=== PATIENT | female | born 1965 | race Caucasian/White ===

== ENCOUNTER 2016-09-05 16:37 | Emergency (ER) | payer MEDICAID ==
[2016-09-05 16:54] VITALS: BP 126/90
[2016-09-05] MEDS ORDERED: HYDROmorphone 1 MG/ML Syringe IM ONE (17:17)
--- NOTE | 2016-09-05 17:44 | EDM.PDOC ---
ED HPI GENERAL MEDICAL PROBLEM - General Chief Complaint: Back Pain or Injury Stated Complaint: BACK PAIN Time Seen by Provider: 09/05/16 16:53 Source of Information: Reports: Patient History Limitations: Reports: No Limitations - History of Present Illness INITIAL COMMENTS - FREE TEXT/NARRATIVE: The patient presents with right lower back pain. She says this started last night. She says she feels like her interstim device is malfunctioning. That was implanted back in 2014 for urinary incontinence. She had no problem with it until now and it was working great. She has been incontinent a couple times since this has been hurting. She did nothing to injure that area. She has no dysuria and she has no numbness or weakness. Every so often she will get what feels like a shock. She could not get in contact with the rep or the doctor that put it in. Onset: Gradual Duration: Day(s): Location: Reports: Back Quality: Reports: Sharp Severity: Severe Improves with: Reports: None Worsens with: Reports: None Associated Symptoms: Reports: No Other Symptoms Right Lower Back Pain Score (Numeric/FACES): 10 - Related Data Allergies Allergy/AdvReac Type Severity Reaction Status Date / Time ibuprofen Allergy Itching Verified 01/24/16 10:53 ketorolac tromethamine Allergy Rash Verified 01/24/16 10:53 [From Toradol] naproxen Allergy Itching Verified 01/24/16 10:53 Sulfa (Sulfonamide Allergy Rash Verified 01/24/16 10:53 Antibiotics) sumatriptan [From Imitrex] Allergy Anaphylactic Verified 01/24/16 10:53 Shock sumatriptan succinate Allergy Anaphylactic Verified 01/24/16 10:53 [From Imitrex] Shock tramadol Allergy Rash Verified 01/24/16 10:53 diphenhydramine HCl AdvReac Headache Verified 01/24/16 10:53 [From Benadryl] MSG Allergy Anxiety Uncoded 01/13/16 14:29 Home Meds: Home Meds Hydrocodone/Acetaminophen [Hydrocodon-Acetaminophen 5-325] 1 - 2 each PO Q6HR PRN #20 tablet 09/05/16 [Rx] hydrOXYzine HCl [Atarax] 50 mg PO TID 09/05/16 [History] Past Medical History HEENT History: Reports: Other (See Below) Other HEENT History: Migraines Cardiovascular History: Reports: High Cholesterol Respiratory History: Reports: Other (See Below) Other Respiratory History: restrictive lung disease Gastrointestinal History: Reports: Gastritis, GERD Other Gastrointestinal History: esophageal stricture, abdominal pain lowere, Genitourinary History: Reports: Urinary Incontinence Other Genitourinary History: implantable device 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: Musculoskeletal History: Reports: Back Pain, Chronic Neurological History: Reports: CVA, Migraines Other Neuro History: denies epilepsy Psychiatric History: Reports: Addiction, Anxiety, Depression, Suicide Attempt, Other (See Below) Other Psychiatric History: drug overdose, personality disorder, alcohol withdrawal Endocrine/Metabolic History: Reports: Obesity/BMI 30+ Dermatologic History: Reports: Other (See Below) Other Dermatologic History: skin lesion - Infectious Disease History Infectious Disease History: Reports: Chicken Pox - Past Surgical History GI Surgical History: Reports: Appendectomy, Cholecystectomy, EGD Female Surgical History: Reports: Hysterectomy, Tubal Ligation Social & Family History - Family History Family Medical History: Noncontributory Cardiac: Reports: Bypass, CAD, Heart Failure - Tobacco Use Smoking Status *Q: Current Every Day Smoker Years of Tobacco use: 7 Packs/Tins Daily: 0.4 Used Tobacco, but Quit: Yes Month Tobacco Last Used: 6 Second Hand Smoke Exposure: No - Caffeine Use Caffeine Use: Reports: Coffee - Alcohol Use Days Per Week of Alcohol Use: 7 Number of Drinks Per Day: 6 Total Drinks Per Week: 42 - Recreational Drug Use Recreational Drug Use: No Drug Use in Last 12 Months: Yes Recreational Drug Type: Reports: Fentanyl, Marijuana/Hashish, Methamphetamine Recreational Drug Use Frequency: Not Used In Over 5 Months - Living Situation & Occupation Living situation: Reports: , with Family Occupation: Unemployed ED ROS GENERAL - Review of Systems Review Of Systems: See Below Constitutional: Reports: No Symptoms HEENT: Reports: No Symptoms Respiratory: Reports: No Symptoms Cardiovascular: Reports: No Symptoms Endocrine: Reports: No Symptoms GI/Abdominal: Reports: No Symptoms : Reports: No Symptoms Musculoskeletal: Reports: Back Pain (Low) Skin: Reports: No Symptoms ED EXAM,LOWER BACK PAIN/INJURY - Physical Exam Exam: See Below Exam Limited By: No Limitations General Appearance: Alert, No Apparent Distress Ears: Normal External Exam Nose: Normal Inspection Head: Atraumatic, Normocephalic Neck: Normal Inspection Respiratory/Chest: No Respiratory Distress, Lungs Clear, Normal Breath Sounds Cardiovascular: Regular Rate, Rhythm, No Edema, No Murmur GI/Abdominal: Soft, Non-Tender, No Organomegaly, No Mass Back Exam: Other (Pain upon palpation to the right lower back) Extremities: Normal Inspection Course - Vital Signs Last Recorded V/S: Last Vital Signs Temp 98.5 F 09/05/16 16:52 Pulse 106 H 09/05/16 16:52 Resp 20 09/05/16 16:52 BP 126/90 09/05/16 16:52 Pulse Ox 98 09/05/16 16:52 - Orders/Labs/Meds Meds: Medications Discontinued Medications Generic Name Dose Route Start Last Admin Trade Name Freq PRN Reason Stop Dose Admin Hydromorphone HCl 1 mg 09/05/16 17:17 09/05/16 17:27 Dilaudid IM 09/05/16 17:18 1 mg ONETIME ONE Administration Departure - Departure Time of Disposition: 17:45 Disposition: Home, Self-Care 01 Condition: good Clinical Impression: Low back pain Qualifiers: Chronicity: acute Back pain laterality: right Sciatica presence: without sciatica Qualified Code(s): M54.5 - Low back pain - Discharge Information Prescriptions: Hydrocodone/Acetaminophen [Hydrocodon-Acetaminophen 5-325] 1 - 2 each PO Q6HR PRN #20 tablet PRN Reason: Pain Referrals: Loren Graf CHIEF ANALYTICS OFFICER [Primary Care Provider] - 1 Week Forms: ED Department Discharge Additional Instructions: Contact your doctor on Wednesday.
== END 2016-09-05 17:49 | disposition home or self-care (01) ==
LOC: SUPCPDRO 16:37 → JD.ED 16:37
DX: M54.5 Low back pain (principal); E78.00 Pure hypercholesterolemia, unspecified; K21.9 Gastro-esophageal reflux disease without esophagitis; F17.210 Nicotine dependence, cigarettes, uncomplicated; Z88.2 Allergy status to sulfonamides; Z88.8 Allergy status to other drugs, medicaments and biological substances; Z79.899 Other long term (current) drug therapy; Z90.49 Acquired absence of other specified parts of digestive tract; Z90.710 Acquired absence of both cervix and uterus
CPT/HCPCS: 96372; 99283; J1170

== ENCOUNTER 2016-09-15 07:19 | Emergency (ER) | payer MEDICAID ==
[2016-09-15 07:27] VITALS: BP 140/92
[2016-09-15] MEDS ORDERED: Sodium Chloride 0.9% 10 ML Syringe FLUSH PRN (07:29)
[2016-09-15] MEDS ORDERED: Famotidine 20 MG Tab PO ONE (07:38)
[2016-09-15] MEDS ORDERED: Ondansetron 4 MG/2 ML SDV IVPUSH ONE (07:38)
[2016-09-15] MEDS ORDERED: Sodium Chloride 0.9% 1,000 ML IV SCH (07:45)
--- NOTE | 2016-09-15 09:22 | EDM.PDOC ---
ED HPI GENERAL MEDICAL PROBLEM - General Chief Complaint: Chest Pain Stated Complaint: CHEST PAIN Time Seen by Provider: 09/15/16 07:26 Source of Information: Reports: Patient, RN Notes Reviewed - History of Present Illness INITIAL COMMENTS - FREE TEXT/NARRATIVE: 50-year-old female comes in with anterior chest discomfort, nausea vomiting and diarrhea. She has been ill for about the past 5 days with repetitive watery diarrhea. She then did have some nausea vomiting early this morning followed by anterior chest discomfort and some shortness of breath. She was concerned this may be her heart and therefore comes to the ED for evaluation. She has no known history for diabetes hypertension or coronary artery disease. She does smoke. She feels quite anxious. Left Lower Chest Pain Score (Numeric/FACES): 8 - Related Data Allergies Allergy/AdvReac Type Severity Reaction Status Date / Time ibuprofen Allergy Itching Verified 09/15/16 07:28 ketorolac tromethamine Allergy Rash Verified 09/15/16 07:28 [From Toradol] naproxen Allergy Itching Verified 09/15/16 07:28 Sulfa (Sulfonamide Allergy Rash Verified 09/15/16 07:28 Antibiotics) sumatriptan [From Imitrex] Allergy Anaphylactic Verified 09/15/16 07:28 Shock sumatriptan succinate Allergy Anaphylactic Verified 09/15/16 07:28 [From Imitrex] Shock tramadol Allergy Rash Verified 09/15/16 07:28 diphenhydramine HCl AdvReac Headache Verified 09/15/16 07:28 [From Benadryl] MSG Allergy Anxiety Uncoded 09/15/16 07:28 Home Meds: Home Meds hydrOXYzine HCl [Atarax] 50 mg PO TID 09/05/16 [History] LORazepam [Ativan] 1 mg PO BID PRN #10 tablet 09/15/16 [Rx] Ondansetron [Zofran ODT] 4 mg PO Q8H PRN #7 tab.dis 09/15/16 [Rx] Past Medical History HEENT History: Reports: Impaired Vision, Other (See Below) Other HEENT History: Migraines Cardiovascular History: Reports: High Cholesterol Respiratory History: Reports: Other (See Below) Other Respiratory History: restrictive lung disease Gastrointestinal History: Reports: Gastritis, GERD Other Gastrointestinal History: esophageal stricture, abdominal pain lowere, Genitourinary History: Reports: Urinary Incontinence Other Genitourinary History: implantable device 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: Musculoskeletal History: Reports: Back Pain, Chronic Neurological History: Reports: CVA, Migraines Other Neuro History: denies epilepsy Psychiatric History: Reports: Addiction, Anxiety, Depression, Suicide Attempt, Other (See Below) Other Psychiatric History: drug overdose, personality disorder, alcohol withdrawal Endocrine/Metabolic History: Reports: Obesity/BMI 30+ Dermatologic History: Reports: Other (See Below) Other Dermatologic History: skin lesion - Infectious Disease History Infectious Disease History: Reports: Chicken Pox - Past Surgical History GI Surgical History: Reports: Appendectomy, Cholecystectomy, EGD Female Surgical History: Reports: Hysterectomy, Tubal Ligation Social & Family History - Family History Family Medical History: Noncontributory Cardiac: Reports: Bypass, CAD, Heart Failure - Tobacco Use Smoking Status *Q: Current Every Day Smoker Years of Tobacco use: 7 Packs/Tins Daily: 0.3 Used Tobacco, but Quit: Yes Month Tobacco Last Used: 6 Second Hand Smoke Exposure: No - Caffeine Use Caffeine Use: Reports: Coffee - Alcohol Use Days Per Week of Alcohol Use: 7 Number of Drinks Per Day: 1 Total Drinks Per Week: 7 - Recreational Drug Use Recreational Drug Use: No Drug Use in Last 12 Months: Yes Recreational Drug Type: Reports: Fentanyl, Marijuana/Hashish, Methamphetamine Recreational Drug Use Frequency: Not Used In Over 5 Months - Living Situation & Occupation Living situation: Reports: , with Family Occupation: Unemployed ED ROS GENERAL - Review of Systems Review Of Systems: See Below Constitutional: Denies: Fever, Chills, Diaphoresis HEENT: Reports: No Symptoms Respiratory: Reports: Shortness of Breath. Denies: Wheezing, Cough Cardiovascular: Reports: Chest Pain (Lower anterior mid chest without radiation) , Lightheadedness, Palpitations GI/Abdominal: Reports: Abdominal Pain, Diarrhea (Repetitive watery), Nausea ( Mild upper abdominal discomfort), Vomiting Musculoskeletal: Denies: Shoulder Pain, Arm Pain Skin: Reports: No Symptoms Neurological: Reports: Dizziness. Denies: Numbness, Tingling, Trouble Speaking ED EXAM, GENERAL - Physical Exam Exam: See Below General Appearance: Alert, Anxious Eye Exam: Bilateral Eye: PERRL Throat/Mouth: Normal Inspection Head: Atraumatic Neck: Supple, Full Range of Motion Respiratory/Chest: No Respiratory Distress, Lungs Clear, Normal Breath Sounds Cardiovascular: Regular Rate, Rhythm GI/Abdominal: Soft, Non-Tender. No: Guarding Back Exam: No: CVA Tenderness (L), CVA Tenderness (R) Extremities: Normal Inspection. No: Pedal Edema, Leg Pain Skin Exam: Warm, Dry, Normal Color EKG INTERPRETATION EKG Date: 09/15/16 Rhythm: NSR [place]: Normal P-Wave: Present QRS: Normal ST-T: Normal Course - Vital Signs Last Recorded V/S: Last Vital Signs Temp 97.3 F 09/15/16 07:25 Pulse 85 09/15/16 07:25 Resp 16 09/15/16 07:25 BP 140/92 H 09/15/16 07:25 Pulse Ox 99 09/15/16 07:25 - Orders/Labs/Meds Orders: Active Orders 24 hr Category Date Time Status EKG 12 Lead [EKG Documentation Completion] [RC] STAT Care 09/15/16 07:30 Active Peripheral IV Care [RC] . DIRECTED Care 09/15/16 07:30 Active Chest 1V Frontal [CR] Stat Exams 09/15/16 07:30 Taken Sodium Chloride 0.9% [Normal Saline] 1,000 ml Med 09/15/16 07:45 Active IV ONETIME Sodium Chloride 0.9% [Saline Flush] Med 09/15/16 07:29 Active 10 ml FLUSH ASDIRECTED PRN Peripheral IV Insertion Adult [OM.PC] Stat Oth 09/15/16 07:30 Ordered Medication Orders Sodium Chloride (Normal Saline) 1,000 mls @ 999 mls/hr IV ONETIME [facility] Last Admin: 09/15/16 08:49 Dose: 999 mls/hr Sodium Chloride (Saline Flush) 10 ml FLUSH ASDIRECTED PRN PRN Reason: Keep Vein Open Last Admin: 09/15/16 08:43 Dose: 10 ml Labs: Laboratory Tests 09/15/16 09/15/16 Range/Units 08:15 08:34 WBC 8.15 (3.98-10.04) K/mm3 RBC 4.77 (3.98-5.22) M/mm3 Hgb 14.5 (11.2-15.7) gm/L Hct 43.1 (34.1-44.9) % MCV 90.4 (79.4-94.8) fl MCH 30.4 (25.6-32.2) pg MCHC 33.6 (32.2-35.5) g/dl RDW Std Deviation 44.4 (36.4-46.3) fL Plt Count 388 H (182-369) K/mm3 MPV 9.4 (9.4-12.3) fl Neut % (Auto) 71.0 (34.0-71.1) % Lymph % (Auto) 21.5 (19.3-51.7) % [place] % (Auto) 5.9 (4.7-12.5) % Eos % (Auto) 1.2 (0.7-5.8) Baso % (Auto) 0.2 (0.1-1.2) % Neut # (Auto) 5.78 (1.56-6.13) K/mm3 Lymph # (Auto) 1.75 (1.18-3.74) K/mm3 [place] # (Auto) 0.48 H (0.24-0.36) K/mm3 Eos # (Auto) 0.10 (0.04-0.36) K/mm3 Baso # (Auto) 0.02 (0.01-0.08) K/mm3 Sodium 140 (136-145) mEq/L Potassium 3.9 (3.5-5.1) mEq/L Chloride 103 (98-107) mEq/L Carbon Dioxide 24 (21-32) mEq/L Anion Gap 16.9 H (5-15) BUN 9 (7-18) mg/dL Creatinine 0.9 (0.55-1.02) mg/dL Est Cr Clr Drug Dosing 66.54 mL/min Estimated GFR (MDRD) > 60 (>60) mL/min BUN/Creatinine Ratio 10.0 L (14-18) Glucose 93 (74-106) mg/dL Calcium 9.4 (8.5-10.1) mg/dL Total Bilirubin 0.8 (0.2-1.0) mg/dL AST 22 (15-37) U/L ALT 36 (14-59) U/L Alkaline Phosphatase 132 H (46-116) U/L Troponin I < 0.017 (0.00-0.056) ng/mL Total Protein 7.8 (6.4-8.2) g/dl Albumin 4.2 (3.4-5.0) g/dl Globulin 3.6 gm/dL Albumin/Globulin Ratio 1.2 (1-2) Meds: Medications Generic Name Dose Route Start Last Admin Trade Name Freq PRN Reason Stop Dose Admin Sodium Chloride 1,000 mls @ 999 mls/hr 09/15/16 07:45 09/15/16 08:49 Normal Saline IV 999 mls/hr ONETIME HÉCTOR Administration Sodium Chloride 10 ml 09/15/16 07:29 09/15/16 08:43 Saline Flush FLUSH 10 ml ASDIRECTED PRN Administration Keep Vein Open Discontinued Medications Generic Name Dose Route Start Last Admin Trade Name Freq PRN Reason Stop Dose Admin Famotidine 20 mg 09/15/16 07:38 09/15/16 08:42 Pepcid PO 09/15/16 07:39 20 mg ONETIME ONE Administration Metoclopramide HCl 5 mg 09/15/16 09:30 Reglan IVPUSH 09/15/16 09:31 ONETIME ONE Ondansetron HCl 4 mg 09/15/16 07:38 09/15/16 08:42 Zofran IVPUSH 09/15/16 07:39 4 mg ONETIME ONE Administration - Re-Assessments/Exams Free Text/Narrative Re-Assessment/Exam: 09/15/16 09:20 Troponin normal, other labs all relatively normal, EKG was normal. She did have nausea vomiting prior to onset of her chest discomfort. This strongly appears to be related to her vomiting, likely some acid reflux as well. Her strong component of anxiety made things worse. Discharge instructions as documented Departure - Departure Time of Disposition: 09:21 Disposition: Home, Self-Care 01 Condition: Fair Clinical Impression: Vomiting, Diarrhea, Atypical chest pain Prescriptions: LORazepam [Ativan] 1 mg PO BID PRN #10 tablet PRN Reason: Anxiety Ondansetron [Zofran ODT] 4 mg PO Q8H PRN #7 tab.dis PRN Reason: Nausea/Vomiting Instructions: Nausea, Adult, Diarrhea, Adult, Nonspecific Chest Pain, Nausea and Vomiting, Adult, [id number] Referrals: Loren Graf, SCALE RECLAMATION TENDER [Primary Care Provider] - Forms: ED Department Discharge Additional Instructions: Rest, clear liquids until this evening, then very careful bland diet as tolerated, Zofran if needed for further nausea or vomiting, begin taking probiotic and take that twice daily for the next week, that is available OTC, follow-up clinic as needed if not getting better over the next 1-2 days as expected, Ativan one half tablet to 1 tablet up to every 12 hours if needed for severe anxiety, return to ED as needed - My Orders Last 24 Hours: My Active Orders 09/15/16 07:29 Sodium Chloride 0.9% [Saline Flush] 10 ml FLUSH ASDIRECTED PRN 09/15/16 07:30 EKG 12 Lead [EKG Documentation Completion] [RC] STAT Peripheral IV Care [RC] . DIRECTED Chest 1V Frontal [CR] Stat Peripheral IV Insertion Adult [OM.PC] Stat 09/15/16 07:45 Sodium Chloride 0.9% [Normal Saline] 1,000 ml IV ONETIME - Assessment/Plan Last 24 Hours: My Active Orders 09/15/16 07:29 Sodium Chloride 0.9% [Saline Flush] 10 ml FLUSH ASDIRECTED PRN 09/15/16 07:30 EKG 12 Lead [EKG Documentation Completion] [RC] STAT Peripheral IV Care [RC] . DIRECTED Chest 1V Frontal [CR] Stat Peripheral IV Insertion Adult [OM.PC] Stat 09/15/16 07:45 Sodium Chloride 0.9% [Normal Saline] 1,000 ml IV ONETIME
[2016-09-15] MEDS ORDERED: Metoclopramide 10 MG/2 ML SDV IVPUSH ONE (09:30)
--- NOTE | 2016-09-15 15:17 | CR ---
Chest: Portable view of the chest was obtained. Comparison: Previous chest x-ray of 01/07/16. Heart size and mediastinum are normal. Linear scar is seen within the left mid lung. Lungs otherwise are clear. Air is noted overlying the spine which is felt to be artifact from superficial soft tissues. Bony structures are grossly intact. Impression: 1. Incidental findings. Nothing acute is appreciated on portable chest x-ray. Diagnostic code #2
== END 2016-09-15 10:02 | disposition home or self-care (01) ==
LOC: JD.ED 07:19
DX: R07.89 Other chest pain (principal); R11.10 Vomiting, unspecified; R19.7 Diarrhea, unspecified; G43.909 Migraine, unspecified, not intractable, without status migrainosus; E78.00 Pure hypercholesterolemia, unspecified; K21.9 Gastro-esophageal reflux disease without esophagitis; F17.210 Nicotine dependence, cigarettes, uncomplicated; F32.9 Major depressive disorder, single episode, unspecified; E66.9 Obesity, unspecified; Z68.34 Body mass index [BMI] 34.0-34.9, adult; Z90.49 Acquired absence of other specified parts of digestive tract; Z86.73 Personal history of transient ischemic attack (TIA), and cerebral infarction without residual deficits; Z88.6 Allergy status to analgesic agent; Z88.2 Allergy status to sulfonamides; Z88.5 Allergy status to narcotic agent; Z88.8 Allergy status to other drugs, medicaments and biological substances; F41.9 Anxiety disorder, unspecified; Z90.710 Acquired absence of both cervix and uterus
CPT/HCPCS: 36415; 71010; 80053; 84484; 85025; 96361; 96374; 99285; A9270; J2405; J7040; J7050; 99284

== ENCOUNTER 2016-10-10 07:46 | Emergency (ER) | payer MEDICAID ==
--- NOTE | 2016-10-10 08:01 | EDM.PDOC ---
ED HPI GENERAL MEDICAL PROBLEM - General Chief Complaint: Gastrointestinal Problem Stated Complaint: VOMITING Time Seen by Provider: 10/10/16 07:55 Source of Information: Reports: Patient, Old Records, RN Notes Reviewed History Limitations: Reports: No Limitations - History of Present Illness INITIAL COMMENTS - FREE TEXT/NARRATIVE: The patient states that she developed watery, nonbloody diarrhea 6 days ago, then nausea and emesis yesterday. She states that she feels either sweaty or chilly, although she has not had a fever. She states that she took an over-the- counter anti-nausea medicine called Nauzene (sodium citrate dihydrate - a buffer agent that can neutralize gastric acidity) that did not help her symptoms. No recent spoiled food. None of the patient's coworkers are similarly ill. No recent antibiotics. No recent travel. No prior similar symptoms. Medical records indicate that the patient had a CBC, CMP, troponin, CRP, and TSH drawn at the clinic on 10/06/2016, all of which were normal. The patient's PCP is Candida Limon. - Related Data Allergies Allergy/AdvReac Type Severity Reaction Status Date / Time ibuprofen Allergy Itching Verified 10/10/16 07:51 ketorolac tromethamine Allergy Rash Verified 10/10/16 07:51 [From Toradol] naproxen Allergy Itching Verified 10/10/16 07:51 Sulfa (Sulfonamide Allergy Rash Verified 10/10/16 07:51 Antibiotics) sumatriptan [From Imitrex] Allergy Anaphylactic Verified 10/10/16 07:51 Shock sumatriptan succinate Allergy Anaphylactic Verified 10/10/16 07:51 [From Imitrex] Shock tramadol Allergy Rash Verified 10/10/16 07:51 diphenhydramine HCl AdvReac Headache Verified 10/10/16 07:51 [From Benadryl] MSG Allergy Anxiety Uncoded 10/10/16 07:51 Home Meds: Home Meds hydrOXYzine HCl [Atarax] 50 mg PO TID 09/05/16 [History] Ondansetron [Zofran ODT] 4 mg PO Q8H PRN #10 tab.dis 10/10/16 [Rx] Venlafaxine HCl [Venlafaxine ER] 150 mg PO DAILY 10/10/16 [History] Past Medical History HEENT History: Reports: Impaired Vision Cardiovascular History: Reports: High Cholesterol (untreated) Respiratory History: Reports: Other (See Below) (Restrictive lung disease - per the patient, not documented) Gastrointestinal History: Reports: Gastritis (untreated), GERD (untreated), Other (See Below) (Esophageal stricture) Genitourinary History: Reports: Urinary Incontinence 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: Musculoskeletal History: Reports: Back Pain, Chronic Psychiatric History: Reports: Addiction, Anxiety, Depression, Suicide Attempt, Other (See Below) (Personality disorder) Endocrine/Metabolic History: Reports: Obesity/BMI 30+ - Infectious Disease History Infectious Disease History: Reports: Chicken Pox - Past Surgical History GI Surgical History: Reports: Appendectomy, Cholecystectomy, EGD Female Surgical History: Reports: Hysterectomy, Salpingo-Oophorectomy, Tubal Ligation, Other (See Below) (InterStim implant for urinary incontinence) Social & Family History - Family History Family Medical History: Noncontributory Cardiac: Reports: Bypass, CAD, Heart Failure - Tobacco Use Smoking Status *Q: Current Every Day Smoker Years of Tobacco use: 21 Packs/Tins Daily: 0.3 - Caffeine Use Caffeine Use: Reports: Coffee - Alcohol Use Alcohol Use History: Yes Days Per Week of Alcohol Use: 7 Number of Drinks Per Day: 1 Total Drinks Per Week: 7 Alcohol Use Frequency: Socially - Recreational Drug Use Recreational Drug Use: Yes Recreational Drug Type: Reports: Fentanyl, Marijuana/Hashish, Methamphetamine - Living Situation & Occupation Living situation: Reports: , Other (with ex-) Occupation: Employed ([employer]) ED ROS GENERAL - Review of Systems Review Of Systems: See Below Constitutional: Reports: No Symptoms HEENT: Reports: No Symptoms Respiratory: Reports: No Symptoms Cardiovascular: Reports: No Symptoms Endocrine: Reports: No Symptoms GI/Abdominal: Reports: Diarrhea (as per the HPI), Nausea (as per the HPI), Vomiting (as per the HPI) : Reports: No Symptoms Musculoskeletal: Reports: No Symptoms Skin: Reports: No Symptoms Neurological: Reports: No Symptoms Psychiatric: Reports: No Symptoms Hematologic/Lymphatic: Reports: No Symptoms Immunologic: Reports: No Symptoms ED EXAM, GI/ABD - Physical Exam Exam: See Below Exam Limited By: No Limitations General Appearance: Alert, WD/WN, No Apparent Distress Eyes: Bilateral: Normal Appearance, EOMI Ears: Normal External Exam, Hearing Grossly Normal Nose: Normal Inspection, No Blood Throat/Mouth: Normal Inspection, Normal Lips, Normal Voice, No Airway Compromise , Other (Moist oral mucosa) Head: Atraumatic, Normocephalic Neck: Normal Inspection, Full Range of Motion Respiratory/Chest: No Respiratory Distress, Lungs Clear, Normal Breath Sounds, No Accessory Muscle Use Cardiovascular: Normal Peripheral Pulses, Regular Rate, Rhythm, No Gallop, No JVD, No Murmur, No Rub GI/Abdominal: Normal Bowel Sounds, Soft, Non-Tender, No Organomegaly, No Distention, No Abnormal Bruit, No Mass, Other (Obese) (Female) Exam: Deferred Rectal (Female) Exam: Deferred Back Exam: Normal Inspection, Full Range of Motion, NT Extremities: Normal Inspection, Normal Range of Motion, No Pedal Edema, Normal Capillary Refill Neurological: Alert, Oriented, Normal Cognition, No Motor/Sensory Deficits Psychiatric: Normal Affect Skin Exam: Warm, Dry, Intact, Normal Color, No Rash Lymphatic: No Adenopathy Course - Vital Signs Last Recorded V/S: Last Vital Signs Temp 36.2 C 10/10/16 07:52 Pulse 76 10/10/16 07:52 Resp BP 119/90 10/10/16 07:52 Pulse Ox 100 10/10/16 07:52 Orthostatic Blood Pressure [ 119/99 Standing] Orthostatic Blood Pressure [ 131/61 Supine] - Orders/Labs/Meds Orders: Active Orders 24 hr Category Date Time Status Orthostatic Vital Signs [RC] STAT Care 10/10/16 07:58 Active Labs: Laboratory Tests 10/10/16 10/10/16 10/10/16 Range/Units 08:40 10:00 10:00 WBC 6.82 (3.98-10.04) K/mm3 RBC 4.73 (3.98-5.22) M/mm3 Hgb 14.7 (11.2-15.7) gm/L Hct 43.6 (34.1-44.9) % MCV 92.2 (79.4-94.8) fl MCH 31.1 (25.6-32.2) pg MCHC 33.7 (32.2-35.5) g/dl RDW Std Deviation 43.7 (36.4-46.3) fL Plt Count 312 (182-369) K/mm3 MPV 9.8 (9.4-12.3) fl Neutrophils % (Manual) 72 H (40-60) % Band Neutrophils % 1 (0-10) % Lymphocytes % (Manual) 23 (20-40) % Atypical Lymphs % 0 % Monocytes % (Manual) 4 (2-10) % Eosinophils % (Manual) 0 L (0.7-5.8) % Basophils % (Manual) 0 L (0.1-1.2) Platelet Estimate Adequate Plt Morphology Comment Normal RBC Morph Comment Normal Sodium 139 (136-145) mEq/L Potassium 3.6 (3.5-5.1) mEq/L Chloride 102 (98-107) mEq/L Carbon Dioxide 25 (21-32) mEq/L Anion Gap 15.6 H (5-15) BUN 10 (7-18) mg/dL Creatinine 0.9 (0.55-1.02) mg/dL Est Cr Clr Drug Dosing 66.54 mL/min Estimated GFR (MDRD) > 60 (>60) mL/min BUN/Creatinine Ratio 11.1 L (14-18) Glucose 104 (74-106) mg/dL Calcium 8.8 (8.5-10.1) mg/dL Magnesium 1.9 (1.8-2.4) mg/dl Total Bilirubin 0.8 (0.2-1.0) mg/dL AST 21 (15-37) U/L ALT 30 (14-59) U/L Alkaline Phosphatase 128 H (46-116) U/L Total Protein 7.3 (6.4-8.2) g/dl Albumin 3.9 (3.4-5.0) g/dl Globulin 3.4 gm/dL Albumin/Globulin Ratio 1.2 (1-2) Urine Color Yellow (Yellow) Urine Appearance Clear (Clear) Urine pH 6.0 (5.0-8.0) Ur Specific [place] 1.025 (1.005-1.030) Urine Protein Negative (Negative) Urine Glucose (UA) Negative (Negative) Urine Ketones Negative (Negative) Urine Occult Blood Negative (Negative) Urine Nitrite Negative (Negative) Urine Bilirubin Negative (Negative) Urine Urobilinogen 0.2 (0.2-1.0) Ur Leukocyte Esterase Negative (Negative) Urine RBC Not seen (0-5) /hpf Urine WBC Not seen (0-5) /hpf Ur Epithelial Cells Not Reportable Ur Squamous Epith Cells 0-5 (0-5) /hpf Urine Bacteria Not seen (FEW) /hpf Urine Mucus Few (FEW) /hpf Meds: Medications Discontinued Medications Generic Name Dose Route Start Last Admin Trade Name Ashvin PRN Reason Stop Dose Admin Sodium Chloride 1,000 mls @ 999 mls/hr 10/10/16 08:10 10/10/16 09:45 Normal Saline IV 10/10/16 09:10 Not Given ONETIME ONE Loperamide HCl 4 mg 10/10/16 08:10 Imodium PO 10/10/16 08:11 ONETIME STA Metoclopramide HCl 10 mg 10/10/16 09:52 10/10/16 10:03 Reglan IM 10/10/16 09:53 10 mg ONETIME STA Administration Ondansetron HCl 4 mg 10/10/16 08:10 Zofran IVPUSH 10/10/16 08:11 ONETIME ONE Ondansetron HCl 4 mg 10/10/16 09:21 10/10/16 09:27 Zofran Odt PO 10/10/16 09:22 4 mg ONETIME ONE Administration - Re-Assessments/Exams Free Text/Narrative Re-Assessment/Exam: 10/10/16 08:00 The patient is not orthostatic 10/10/16 09:29 The nurse and AIR BRAKE OPERATOR have been having difficulty establishing an IV on the patient. At present, I have ordered oral Zofran and Imodium. She has not had any vomiting or diarrhea since being in the ED. If her nausea subsides, we will try giving her oral Gatorade for rehydration. Lab is still attempting to draw blood. 10/10/16 09:54 Lab was unable to draw blood. The patient took the oral Zofran, and has been drinking some Gatorade, but is not complaining of some stomach upset. I have ordered Reglan 10 mg IM. 10/10/16 10:03 Notified that while we do not have an IV, blood has been obtained. 10/10/16 11:09 The patient has been able to hold liquids down, and has not had any diarrhea during her ED visit. I will discharge her home with a prescription for Zofran, and she can take [id number] Imodium as needed. Departure - Departure Time of Disposition: 11:10 Disposition: Home, Self-Care 01 Condition: Good Clinical Impression: Gastroenteritis - Discharge Information Referrals: Candida Limon PA [Primary Care Provider] - Forms: ED Department Discharge Additional Instructions: You were seen in the emergency room for nausea, vomiting, and diarrhea. Workup in the ER included blood work, a urinalysis, and positional blood pressure checked. Your entire workup was normal. Your not dehydrated. You do not have any electrolyte abnormalities. You do not have a urinary tract infection. You have been started on the anti-nausea medicine Zofran. Dissolve 1 tablet on your tongue up to every 8 hours, as needed for nausea/vomiting. Take [id number] Imodium (loperamide) as directed, as needed for diarrhea. Stay well hydrated. Gatorade is best, but Powerade, Pedialyte, water, and juice are good. If you are hungry, we recommend a bland diet, such as rice, oatmeal, toast, applesauce, etc. the next couple of days. Follow-up with your PCP, Candida Limon, as needed. If any other problems, please do not hesitate to return to the ER. - My Orders Last 24 Hours: My Active Orders 10/10/16 07:58 Orthostatic Vital Signs [RC] STAT - Assessment/Plan Last 24 Hours: My Active Orders 10/10/16 07:58 Orthostatic Vital Signs [RC] STAT
[2016-10-10] MEDS ORDERED: Ondansetron 4 MG/2 ML SDV IVPUSH ONE (08:10)
[2016-10-10] MEDS ORDERED: Sodium Chloride 0.9% 1,000 ML IV ONE (08:10)
[2016-10-10] MEDS ORDERED: Loperamide 2 MG Cap PO STA (08:10)
[2016-10-10] MEDS ORDERED: Ondansetron 4 MG Tab.DIS PO ONE (09:21)
[2016-10-10] MEDS ORDERED: Metoclopramide 10 MG/2 ML SDV IM STA (09:52)
[2016-10-10 11:32] VITALS: BP 121/76
== END 2016-10-10 11:25 | disposition home or self-care (01) ==
LOC: JD.ED 07:46
DX: K52.9 Noninfective gastroenteritis and colitis, unspecified (principal); E78.00 Pure hypercholesterolemia, unspecified; K21.9 Gastro-esophageal reflux disease without esophagitis; F41.9 Anxiety disorder, unspecified; F17.210 Nicotine dependence, cigarettes, uncomplicated; F32.9 Major depressive disorder, single episode, unspecified; E66.9 Obesity, unspecified; Z90.49 Acquired absence of other specified parts of digestive tract; Z88.6 Allergy status to analgesic agent; Z88.2 Allergy status to sulfonamides; Z88.5 Allergy status to narcotic agent; Z79.899 Other long term (current) drug therapy; Z90.710 Acquired absence of both cervix and uterus; Z68.36 Body mass index [BMI] 36.0-36.9, adult
CPT/HCPCS: 36415; 80053; 81001; 83735; 85025; 96372; 99284; A9270; J2765; P9612

== ENCOUNTER 2016-10-26 12:57 | Emergency (ER) | payer MEDICAID ==
[2016-10-26 13:06] VITALS: BP 135/99
[2016-10-26] MEDS ORDERED: HYDROmorphone 1 MG/ML Syringe IVPUSH ONE (13:37)
[2016-10-26] MEDS ORDERED: HYDROmorphone 1 MG/ML Syringe IM ONE (13:40)
--- NOTE | 2016-10-26 13:55 | EDM.PDOC ---
ED HPI GENERAL MEDICAL PROBLEM - General Chief Complaint: Back Pain or Injury Stated Complaint: BACK PAIN Time Seen by Provider: 10/26/16 13:18 Source of Information: Reports: Patient, RN Notes Reviewed - History of Present Illness INITIAL COMMENTS - FREE TEXT/NARRATIVE: 50-year-old lady comes in with low back pain. She has had history of low back problems in the past. She works at [employer] and has been working there for the past 2 months or so. After working her shift yesterday she began having more low back pain. For a while this morning the pain was shooting down into her legs. Now the pain is primarily right lower back, worse with motion. No other unusual symptoms. Treatments INSPECTOR CRYSTAL: Reports: Acetaminophen Lower Back Pain Score (Numeric/FACES): 9 - Related Data Allergies Allergy/AdvReac Type Severity Reaction Status Date / Time ibuprofen Allergy Itching Verified 10/26/16 13:07 ketorolac tromethamine Allergy Rash Verified 10/26/16 13:07 [From Toradol] naproxen Allergy Itching Verified 10/26/16 13:07 Sulfa (Sulfonamide Allergy Rash Verified 10/26/16 13:07 Antibiotics) sumatriptan [From Imitrex] Allergy Anaphylactic Verified 10/26/16 13:07 Shock sumatriptan succinate Allergy Anaphylactic Verified 10/26/16 13:07 [From Imitrex] Shock tramadol Allergy Rash Verified 10/26/16 13:07 diphenhydramine HCl AdvReac Headache Verified 10/26/16 13:07 [From Benadryl] MSG Allergy Anxiety Uncoded 10/10/16 07:51 Home Meds: Home Meds Ondansetron [Zofran ODT] 4 mg PO Q8H PRN #10 tab.dis 10/10/16 [Rx] Venlafaxine HCl [Venlafaxine ER] 150 mg PO DAILY 10/10/16 [History] Acetaminophen/HYDROcodone [[place] 325-5 MG] 1 tab PO Q6H PRN #10 tablet 10/26/16 [Rx] hydrOXYzine Pamoate [Vistaril] 50 mg PO Q8H 10/26/16 [History] Past Medical History HEENT History: Reports: Impaired Vision Other HEENT History: wears corrective lenses Cardiovascular History: Reports: High Cholesterol Respiratory History: Reports: Other (See Below) (Restrictive lung disease - per the patient, not documented) Other Respiratory History: restrictive lung disease Gastrointestinal History: Reports: Gastritis, GERD, Other (See Below) Other Gastrointestinal History: esophageal stricture, abdominal pain lowere, Genitourinary History: Reports: Urinary Incontinence Other Genitourinary History: implantable device interstim 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: Musculoskeletal History: Reports: Back Pain, Chronic Neurological History: Reports: CVA, Migraines Other Neuro History: denies epilepsy Psychiatric History: Reports: Addiction, Anxiety, Depression, Suicide Attempt, Other (See Below) Other Psychiatric History: drug overdose, personality disorder, alcohol withdrawal Endocrine/Metabolic History: Reports: Obesity/BMI 30+ Dermatologic History: Reports: Other (See Below) Other Dermatologic History: skin lesion - Infectious Disease History Infectious Disease History: Reports: Chicken Pox - Past Surgical History HEENT Surgical History: Reports: None Cardiovascular Surgical History: Reports: None GI Surgical History: Reports: Appendectomy, Cholecystectomy, EGD Female Surgical History: Reports: Hysterectomy, Salpingo-Oophorectomy, Tubal Ligation Social & Family History - Family History Family Medical History: Noncontributory Cardiac: Reports: Bypass, CAD, Heart Failure - Tobacco Use Smoking Status *Q: Current Every Day Smoker Years of Tobacco use: 7 Packs/Tins Daily: 0.3 Used Tobacco, but Quit: No Month Tobacco Last Used: 6 Second Hand Smoke Exposure: No - Caffeine Use Caffeine Use: Reports: Coffee - Alcohol Use Days Per Week of Alcohol Use: 7 Number of Drinks Per Day: 1 Total Drinks Per Week: 7 - Recreational Drug Use Recreational Drug Use: No Drug Use in Last 12 Months: Yes Recreational Drug Type: Reports: Fentanyl, Marijuana/Hashish, Methamphetamine Recreational Drug Use Frequency: Not Used In Over 5 Months - Living Situation & Occupation Living situation: Reports: , Other (with ex-) Occupation: Employed ([employer]) ED [facility] GENERAL - Review of Systems Review Of Systems: See Below Constitutional: Denies: Fever, Chills, Diaphoresis HEENT: Reports: No Symptoms Respiratory: Denies: Shortness of Breath Cardiovascular: Denies: Chest Pain GI/Abdominal: Denies: Abdominal Pain, Nausea, Vomiting : Reports: No Symptoms Musculoskeletal: Reports: Back Pain, Leg Pain Skin: Reports: No Symptoms Neurological: Denies: Numbness, Tingling ED EXAM,LOWER BACK PAIN/INJURY - Physical Exam Exam: See Below General Appearance: Alert, Moderate Distress Throat/Mouth: Normal Inspection, Normal Oropharynx Head: Atraumatic Neck: Supple Respiratory/Chest: No Respiratory Distress, Lungs Clear, Normal Breath Sounds Cardiovascular: Regular Rate, Rhythm Back Exam: Paraspinal Tenderness. No: CVA Tenderness (L), CVA Tenderness (R) Extremities: Normal Inspection (Right low back), Normal Range of Motion Neurological: Alert, No Motor/Sensory Deficits Skin Exam: Warm, Dry, Normal Color Course - Vital Signs Last Recorded V/S: Last Vital Signs Temp 97.1 F 10/26/16 13:04 Pulse 92 10/26/16 13:04 Resp 20 10/26/16 13:04 BP 135/99 H 10/26/16 13:04 Pulse Ox 96 10/26/16 13:04 - Orders/Labs/Meds Meds: Medications Discontinued Medications Generic Name Dose Route Start Last Admin Trade Name Freq PRN Reason Stop Dose Admin Hydromorphone HCl 1 mg 10/26/16 13:40 10/26/16 13:45 Dilaudid IM 10/26/16 13:41 1 mg ONETIME ONE Administration - Re-Assessments/Exams Free Text/Narrative Re-Assessment/Exam: 10/26/16 13:52 Have given Dilaudid 1 mg IM. She does have a local company flatbed truck driver to get her home. She is "allergic to Toradol" Discharge instructions as documented 10/26/16 13:53 Departure - Departure Time of Disposition: 13:53 Disposition: Home, Self-Care 01 Condition: Fair Clinical Impression: Back strain Qualifiers: Encounter type: initial encounter Qualified Code(s): S39.012A - Strain of muscle, fascia and tendon of lower back, initial encounter - Discharge Information Prescriptions: Acetaminophen/HYDROcodone [[place] 325-5 MG] 1 tab PO Q6H PRN #10 tablet PRN Reason: Pain Forms: ED Department Discharge Additional Instructions: Rest back, alternate ice and heat as needed, you've been given Dilaudid 1 mg IM while here in the ED. No driving the remainder of today. He may take Tylenol for mild to moderate discomfort or hydrocodone if needed for severe pain. Do not drive or work when taking hydrocodone. Follow-up clinic as needed.
== END 2016-10-26 14:30 | disposition home or self-care (01) ==
LOC: JD.ED 12:57
DX: S39.012A Strain of muscle, fascia and tendon of lower back, initial encounter (principal); E78.00 Pure hypercholesterolemia, unspecified; K21.9 Gastro-esophageal reflux disease without esophagitis; F41.9 Anxiety disorder, unspecified; F32.9 Major depressive disorder, single episode, unspecified; E66.9 Obesity, unspecified; F17.210 Nicotine dependence, cigarettes, uncomplicated; Z90.710 Acquired absence of both cervix and uterus; Z90.49 Acquired absence of other specified parts of digestive tract; Z86.73 Personal history of transient ischemic attack (TIA), and cerebral infarction without residual deficits; Z88.1 Allergy status to other antibiotic agents; Z88.2 Allergy status to sulfonamides; Z88.6 Allergy status to analgesic agent; Z88.5 Allergy status to narcotic agent; Z79.899 Other long term (current) drug therapy; Z68.36 Body mass index [BMI] 36.0-36.9, adult; X50.0XXA Overexertion from strenuous movement or load, initial encounter; Y99.0 Civilian activity done for income or pay
CPT/HCPCS: 96372; 99283; J1170

== ENCOUNTER 2016-10-27 14:46 | Emergency (ER) | payer MEDICAID ==
[2016-10-27] MEDS ORDERED: Sodium Chloride 0.9% 10 ML Syringe FLUSH PRN (14:49)
--- NOTE | 2016-10-27 15:16 | CT ---
Head CT Technique: Multiple axial sections through the brain were obtained. Intravenous contrast was not utilized. Comparison: Previous head CT exam of 11/03/15. Findings: Ventricles along with basal cisterns and sulci over convexities are mildly prominent. No abnormal parenchymal densities are seen. No evidence of intracranial hemorrhage. No midline shift or mass effect is seen. No acute calvarial abnormality is appreciated. Mild mucosal thickening is seen within portions of the left maxillary sinus with possible small retention cyst. Other visualized sinuses are clear. Impression: 1. Slight mucosal thickening and possible small retention cyst within the inferior left maxillary sinus which is felt to be incidental. 2. No acute intracranial abnormality is identified on noncontrast head CT exam. Diagnostic code #2
[2016-10-27 15:30] VITALS: BP 130/87
[2016-10-27] MEDS ORDERED: LORazepam 2 MG/ML MDV IVPUSH ONE (15:41)
[2016-10-27] MEDS ORDERED: Acetaminophen 325 MG Tab PO ONE (15:41)
--- NOTE | 2016-10-27 16:24 | EDM.PDOC ---
ED HPI GENERAL MEDICAL PROBLEM - General Chief Complaint: Neuro Symptoms/Deficits Stated Complaint: [facility] Time Seen by Provider: 10/27/16 14:49 Source of Information: Reports: Patient, EMS History Limitations: Reports: No Limitations - History of Present Illness INITIAL COMMENTS - FREE TEXT/NARRATIVE: The patient presents with a headache, left sided facial droop, left arm weakness and left leg weakness. This all started about 40 minutes ago. Her last time know well was 1405. She has no chest pain, shortness of breath, abdominal pain, nausea or vomiting. She had a TIA about 9 months ago. She is not on any blood thinners. EMS did say she could walk to the cot when they got to her. Onset: Sudden Duration: Minutes: (40) Location: Reports: Face, Upper Extremity, Left, Lower Extremity, Left Quality: Reports: Other (Weakness) Severity: Moderate Improves with: Reports: None Worsens with: Reports: Movement Headache Pain Score (Numeric/FACES): 9 - Related Data Allergies Allergy/AdvReac Type Severity Reaction Status Date / Time ibuprofen Allergy Itching Verified 10/27/16 15:21 ketorolac tromethamine Allergy Rash Verified 10/27/16 15:21 [From Toradol] naproxen Allergy Itching Verified 10/27/16 15:21 Sulfa (Sulfonamide Allergy Rash Verified 10/27/16 15:21 Antibiotics) sumatriptan [From Imitrex] Allergy Anaphylactic Verified 10/27/16 15:21 Shock sumatriptan succinate Allergy Anaphylactic Verified 10/27/16 15:21 [From Imitrex] Shock tramadol Allergy Rash Verified 10/27/16 15:21 diphenhydramine HCl AdvReac Headache Verified 10/27/16 15:21 [From Benadryl] MSG Allergy Anxiety Uncoded 10/10/16 07:51 Home Meds: Home Meds Ondansetron [Zofran ODT] 4 mg PO Q8H PRN #10 tab.dis 10/10/16 [Rx] Venlafaxine HCl [Venlafaxine ER] 150 mg PO DAILY 10/10/16 [History] Acetaminophen/HYDROcodone [Brusly 325-5 MG] 1 tab PO Q6H PRN #10 tablet 10/26/16 [Rx] hydrOXYzine Pamoate [Vistaril] 50 mg PO Q8H 10/26/16 [History] Past Medical History HEENT History: Reports: Impaired Vision Other HEENT History: wears corrective lenses Cardiovascular History: Reports: High Cholesterol Respiratory History: Reports: Other (See Below) Other Respiratory History: restrictive lung disease Gastrointestinal History: Reports: Gastritis, GERD, Other (See Below) Other Gastrointestinal History: esophageal stricture, abdominal pain lowere, Genitourinary History: Reports: Urinary Incontinence Other Genitourinary History: implantable device interstim 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: Musculoskeletal History: Reports: Back Pain, Chronic Neurological History: Reports: CVA, Migraines Other Neuro History: denies epilepsy Psychiatric History: Reports: Addiction, Anxiety, Depression, Suicide Attempt, Other (See Below) Other Psychiatric History: drug overdose, personality disorder, alcohol withdrawal Endocrine/Metabolic History: Reports: Obesity/BMI 30+ Dermatologic History: Reports: Other (See Below) Other Dermatologic History: skin lesion - Infectious Disease History Infectious Disease History: Reports: Chicken Pox - Past Surgical History HEENT Surgical History: Reports: None Cardiovascular Surgical History: Reports: None GI Surgical History: Reports: Appendectomy, Cholecystectomy, EGD Female Surgical History: Reports: Hysterectomy, Salpingo-Oophorectomy, Tubal Ligation Social & Family History - Family History Family Medical History: Noncontributory Cardiac: Reports: Bypass, CAD, Heart Failure - Tobacco Use Smoking Status *Q: Current Every Day Smoker Years of Tobacco use: 7 Packs/Tins Daily: 0.5 Used Tobacco, but Quit: No Month Tobacco Last Used: 6 Second Hand Smoke Exposure: No - Caffeine Use Caffeine Use: Reports: Coffee, Soda - Alcohol Use Days Per Week of Alcohol Use: 7 Number of Drinks Per Day: 1 Total Drinks Per Week: 7 - Recreational Drug Use Recreational Drug Use: No Drug Use in Last 12 Months: Yes Recreational Drug Type: Reports: Fentanyl, Marijuana/Hashish, Methamphetamine Recreational Drug Use Frequency: Not Used In Over 5 Months - Living Situation & Occupation Living situation: Reports: , Other (with ex-) Occupation: Employed ([employer]) [facility] - Review of Systems Review Of Systems: See Below Constitutional: Reports: No Symptoms HEENT: Reports: No Symptoms Respiratory: Reports: No Symptoms Cardiovascular: Reports: No Symptoms Endocrine: Reports: No Symptoms GI/Abdominal: Reports: No Symptoms : Reports: No Symptoms Musculoskeletal: Reports: No Symptoms Skin: Reports: No Symptoms Neurological: Reports: Headache, Weakness (Left face, arm and leg) Psychiatric: Reports: No Symptoms ED EXAM, NEURO - Physical Exam Exam: See Below Exam Limited By: No Limitations General Appearance: Alert, No Apparent Distress Ears: Normal External Exam Nose: Normal Inspection Head Exam: Atraumatic, Normocephalic Neck: Normal Inspection Respiratory/Chest: No Respiratory Distress, Lungs Clear, Normal Breath Sounds Cardiovascular: Regular Rate, Rhythm, No Edema, No Murmur GI/Abdominal: Soft, Non-Tender, No Organomegaly, No Mass Neurological: Alert, Oriented x 3, Other (Mild left facial, arm and leg numbness ) EKG INTERPRETATION EKG Date: 10/27/16 Time: 15:02 Rhythm: NSR Rate (Beats/Min): 75 [place]: Normal P-Wave: Present QRS: Normal ST-T: Normal QT: Normal Course - Vital Signs Last Recorded V/S: Last Vital Signs Temp 97.8 F 10/27/16 15:17 Pulse 72 10/27/16 15:17 Resp 16 10/27/16 15:17 BP 130/87 10/27/16 15:30 Pulse Ox 98 10/27/16 15:17 - Orders/Labs/Meds Orders: Active Orders 24 hr Category Date Time Status Cardiac Monitoring [RC] . DIRECTED Care 10/27/16 14:49 Active EKG Documentation Completion [RC] STAT Care 10/27/16 14:50 Active Oxygen Therapy [RC] PRN Care 10/27/16 14:49 Active Peripheral IV Care [RC] . DIRECTED Care 10/27/16 14:51 Active HYDROmorphone [Dilaudid] Med 10/27/16 16:35 Once 0.5 mg IVPUSH ONETIME ONE Sodium Chloride 0.9% [Saline Flush] Med 10/27/16 14:49 Active 10 ml FLUSH ASDIRECTED PRN Peripheral IV Insertion Adult [OM.PC] Stat Oth 10/27/16 14:49 Ordered Medication Orders Sodium Chloride (Saline Flush) 10 ml FLUSH ASDIRECTED PRN PRN Reason: Keep Vein Open Last Admin: 10/27/16 15:31 Dose: 10 ml Labs: Laboratory Tests 10/27/16 10/27/16 10/27/16 Range/Units 14:56 15:45 15:45 WBC 6.66 (3.98-10.04) K/mm3 RBC 4.90 (3.98-5.22) M/mm3 Hgb 15.0 (11.2-15.7) gm/L Hct 45.1 H (34.1-44.9) % MCV 92.0 (79.4-94.8) fl MCH 30.6 (25.6-32.2) pg MCHC 33.3 (32.2-35.5) g/dl RDW Std Deviation 40.9 (36.4-46.3) fL Plt Count 270 (182-369) K/mm3 MPV 9.9 (9.4-12.3) fl Neut % (Auto) 60.0 (34.0-71.1) % Lymph % (Auto) 27.8 (19.3-51.7) % Hubbard % (Auto) 8.4 (4.7-12.5) % Eos % (Auto) 3.3 (0.7-5.8) Baso % (Auto) 0.5 (0.1-1.2) % Neut # (Auto) 4.00 (1.56-6.13) K/mm3 Lymph # (Auto) 1.85 (1.18-3.74) K/mm3 Hubbard # (Auto) 0.56 H (0.24-0.36) K/mm3 Eos # (Auto) 0.22 (0.04-0.36) K/mm3 Baso # (Auto) 0.03 (0.01-0.08) K/mm3 Sodium 140 (136-145) mEq/L Potassium 4.0 (3.5-5.1) mEq/L Chloride 103 (98-107) mEq/L Carbon Dioxide 32 (21-32) mEq/L Anion Gap 9.0 (5-15) BUN 14 (7-18) mg/dL Creatinine 1.0 (0.55-1.02) mg/dL Est Cr Clr Drug Dosing TNP Estimated GFR (MDRD) 58 (>60) mL/min BUN/Creatinine Ratio 14.0 (14-18) Glucose 92 (74-106) mg/dL POC Glucose 94 (70-105) mg/dL Calcium 9.6 (8.5-10.1) mg/dL Total Bilirubin 0.5 (0.2-1.0) mg/dL AST 19 (15-37) U/L ALT 30 (14-59) U/L Alkaline Phosphatase 108 (46-116) U/L Troponin I < 0.017 (0.00-0.056) ng/mL Total Protein 7.4 (6.4-8.2) g/dl Albumin 4.1 (3.4-5.0) g/dl Globulin 3.3 gm/dL Albumin/Globulin Ratio 1.2 (1-2) TSH 3rd Generation 1.840 (0.358-3.74) uIU/mL Meds: Medications Generic Name Dose Route Start Last Admin Trade Name Freq PRN Reason Stop Dose Admin Sodium Chloride 10 ml 10/27/16 14:49 10/27/16 15:31 Saline Flush FLUSH 10 ml ASDIRECTED PRN Administration Keep Vein Open Discontinued Medications Generic Name Dose Route Start Last Admin Trade Name Freq PRN Reason Stop Dose Admin Acetaminophen 975 mg 10/27/16 15:41 10/27/16 16:03 Tylenol PO 10/27/16 15:42 975 mg NOW ONE Administration Lorazepam 1 mg 10/27/16 15:41 10/27/16 15:59 Ativan IVPUSH 10/27/16 15:42 1 mg ONETIME ONE Administration - Re-Assessments/Exams Free Text/Narrative Re-Assessment/Exam: 10/27/16 16:23 I ordered an IV Saline lock, EKG, CT of her head and labs. Her EKG shows a NSR with no acute changes. Her head CT shows nothing acute. Her CBC and CMP looks good. 10/27/16 16:35 She still has a headache so I ordered tylenol and some ativan for her anxiety. She still has some pain so I gave her dilaudid 0.5mg IV. 10/27/16 16:38 She had a TIA versus a complex migraine. She may need a referral to neurology. Departure - Departure Time of Disposition: 16:40 Disposition: Home, Self-Care 01 Condition: Good Clinical Impression: Migraine Qualifiers: Migraine type: other Status migrainosus presence: without status migrainosus Intractability: not intractable Qualified Code(s): G43.809 - Other migraine, not intractable, without status migrainosus TIA (transient ischemic attack) Qualifiers: Transient cerebral ischemia type: unspecified Qualified Code(s): G45.9 - Transient cerebral ischemic attack, unspecified - Discharge Information Referrals: Candida Limon PA [Primary Care Provider] - 1 Week Forms: ED Department Discharge Additional Instructions: You had a complex migraine. I think this was less likely a TIA. Follow up with with Candida Limon. You may need a referral to neurology. Please return if you are worse. - My Orders Last 24 Hours: My Active Orders 10/27/16 14:49 Cardiac Monitoring [RC] . DIRECTED Oxygen Therapy [RC] PRN Sodium Chloride 0.9% [Saline Flush] 10 ml FLUSH ASDIRECTED PRN Peripheral IV Insertion Adult [OM.PC] Stat 10/27/16 14:50 EKG Documentation Completion [RC] STAT 10/27/16 14:51 Peripheral IV Care [RC] . DIRECTED 10/27/16 16:35 HYDROmorphone [Dilaudid] 0.5 mg IVPUSH ONETIME ONE - Assessment/Plan Last 24 Hours: My Active Orders 10/27/16 14:49 Cardiac Monitoring [RC] . DIRECTED Oxygen Therapy [RC] PRN Sodium Chloride 0.9% [Saline Flush] 10 ml FLUSH ASDIRECTED PRN Peripheral IV Insertion Adult [OM.PC] Stat 10/27/16 14:50 EKG Documentation Completion [RC] STAT 10/27/16 14:51 Peripheral IV Care [RC] . DIRECTED 10/27/16 16:35 HYDROmorphone [Dilaudid] 0.5 mg IVPUSH ONETIME ONE
[2016-10-27] MEDS ORDERED: HYDROmorphone 0.5 MG/0.5 ML Syringe IVPUSH ONE (16:35)
== END 2016-10-27 17:15 | disposition home or self-care (01) ==
LOC: JD.ED 14:46
DX: G45.9 Transient cerebral ischemic attack, unspecified (principal); G43.809 Other migraine, not intractable, without status migrainosus; F17.210 Nicotine dependence, cigarettes, uncomplicated; E78.00 Pure hypercholesterolemia, unspecified; K21.9 Gastro-esophageal reflux disease without esophagitis; F41.9 Anxiety disorder, unspecified; F32.9 Major depressive disorder, single episode, unspecified; E66.9 Obesity, unspecified; Z90.710 Acquired absence of both cervix and uterus; Z68.36 Body mass index [BMI] 36.0-36.9, adult
CPT/HCPCS: 36415; 70450; 80053; 82962; 84443; 84484; 85025; 93005; 96374; 96375; 99285; A9270; J1170; J2060; J7050; 99284

== ENCOUNTER 2016-11-25 08:36 | Emergency (ER) | payer MEDICAID ==
[2016-11-25] MEDS ORDERED: Promethazine 25 MG/ML SDV IM ONE (09:10)
[2016-11-25] MEDS ORDERED: HYDROmorphone 1 MG/ML Syringe IM ONE (09:10)
--- NOTE | 2016-11-25 09:10 | EDM.PDOC ---
ED HPI GENERAL MEDICAL PROBLEM - General Chief Complaint: Back Pain or Injury Stated Complaint: BACK PAIN Time Seen by Provider: 11/25/16 09:03 Source of Information: Reports: Patient History Limitations: Reports: No Limitations - History of Present Illness INITIAL COMMENTS - FREE TEXT/NARRATIVE: 51 year old female presents to the ED with acue exacerbation of lower back pain. Onset: Gradual (gradually getting worse over the last 2-3 weeks. She can no longer stand the pain. 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 She did have a CT of her lumbar spine carried out this morning.) Duration: Week(s):, Chronic, Getting Worse Location: Reports: Back ( Diffuse low back pain primarily left side radiating to the left but talk. It does not radiate down the leg.) Quality: Reports: Ache, Throbbing Severity: Severe (Rates her pain as 8 or 9 out of 10.) Improves with: Reports: Rest Worsens with: Reports: Other, Movement Context: Denies: Activity ( Prolonged standing is the worst. Even sitting makes it worse.), Exercise, Lifting, Sick Contact, Trauma, Other Associated Symptoms: Reports: Malaise, Weakness. 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 at home.) Lower Back Pain Score (Numeric/FACES): 10 - Related Data Allergies Allergy/AdvReac Type Severity Reaction Status Date / Time ibuprofen Allergy Itching Verified 11/25/16 08:52 ketorolac tromethamine Allergy Rash Verified 11/25/16 08:52 [From Toradol] naproxen Allergy Itching Verified 11/25/16 08:52 Sulfa (Sulfonamide Allergy Rash Verified 11/25/16 08:52 Antibiotics) sumatriptan [From Imitrex] Allergy Anaphylactic Verified 11/25/16 08:52 Shock sumatriptan succinate Allergy Anaphylactic Verified 11/25/16 08:52 [From Imitrex] Shock tramadol Allergy Rash Verified 11/25/16 08:52 diphenhydramine HCl AdvReac Headache Verified 11/25/16 08:52 [From Benadryl] MSG Allergy Anxiety Uncoded 11/25/16 08:52 Home Meds: Home Meds Venlafaxine HCl [Venlafaxine ER] 150 mg PO DAILY 10/10/16 [History] hydrOXYzine Pamoate [Vistaril] 50 mg PO Q8H 10/26/16 [History] Nabumetone 500 mg PO BID PRN 11/25/16 [History] Orphenadrine [Norflex] 100 mg PO BID PRN 11/25/16 [History] oxyCODONE HCl/Acetaminophen [Percocet 5-325 mg Tablet] 1 - 2 each PO Q4H PRN # 24 tablet 11/25/16 [Rx] predniSONE [Deltasone] 20 mg PO ASDIRECTED #15 tablet 11/25/16 [Rx] Past Medical History HEENT History: Reports: Impaired Vision Other HEENT History: wears corrective lenses Cardiovascular History: Reports: High Cholesterol Respiratory History: Reports: Other (See Below) Other Respiratory History: restrictive lung disease Gastrointestinal History: Reports: Gastritis, GERD, Other (See Below) Other Gastrointestinal History: esophageal stricture, abdominal pain lowere, Genitourinary History: Reports: Urinary Incontinence Other Genitourinary History: 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: Musculoskeletal History: Reports: Back Pain, Chronic Neurological History: Reports: CVA, Migraines Other Neuro History: denies epilepsy Psychiatric History: Reports: Addiction, Anxiety, Depression, Suicide Attempt, Other (See Below) Other Psychiatric History: drug overdose, personality disorder, alcohol withdrawal Endocrine/Metabolic History: Reports: Obesity/BMI 30+ Dermatologic History: Reports: Other (See Below) Other Dermatologic History: skin lesion - Infectious Disease History Infectious Disease History: Reports: Chicken Pox - Past Surgical History HEENT Surgical History: Reports: None Cardiovascular Surgical History: Reports: None GI Surgical History: Reports: Appendectomy, Cholecystectomy, EGD Female Surgical History: Reports: Hysterectomy, Salpingo-Oophorectomy, Tubal Ligation Social & Family History - Family History Family Medical History: Noncontributory Cardiac: Reports: Bypass, CAD, Heart Failure - Tobacco Use Smoking Status *Q: Current Every Day Smoker Years of Tobacco use: 7 Packs/Tins Daily: 0.2 Used Tobacco, but Quit: No Month Tobacco Last Used: 6 Second Hand Smoke Exposure: Yes - Caffeine Use Caffeine Use: Reports: Coffee, Soda - Alcohol Use Days Per Week of Alcohol Use: 7 Number of Drinks Per Day: 1 Total Drinks Per Week: 7 - Recreational Drug Use Recreational Drug Use: No Drug Use in Last 12 Months: Yes Recreational Drug Type: Reports: Fentanyl, Marijuana/Hashish, Methamphetamine Recreational Drug Use Frequency: Not Used In Over 5 Months - Living Situation & Occupation Living situation: Reports: , Other (with ex-) Occupation: Employed ([employer]) ED [employer] [facility] - Review of Systems Review Of Systems: See Below Constitutional: Reports: Fatigue ( Disrupted sleep.). Denies: Fever, Chills HEENT: Reports: No Symptoms Respiratory: Reports: No Symptoms Cardiovascular: Reports: No Symptoms Endocrine: Reports: Fatigue GI/Abdominal: Reports: Constipation ( Bowels been working fairly well has had some intermittent problems with constipation. Sibling no incontinence.). Denies : Abdominal Pain : Reports: Frequency, Other ( Has a neurostimulator device in place because of urinary incontinence and it's been working quite well.) Musculoskeletal: Reports: Back Pain ( Chronic low back pain worse the last several weeks with note any falls or injuries. His primarily left-sided into the left SI joint. Pain does not radiate below the buttock.) Skin: Reports: No Symptoms Neurological: Reports: No Symptoms, Difficulty Walking Psychiatric: Reports: No Symptoms ( Due to pain in the right SI joint and low back.) Hematologic/Lymphatic: Reports: No Symptoms ED EXAM,LOWER BACK PAIN/INJURY - Physical Exam Exam: See Below Exam Limited By: No Limitations General Appearance: Alert, WD/WN, Mild Distress, Other ( Moves extremely slowly like [id number] lady. Has marked difficulty getting on and off the gurney.) Eye Exam: Bilateral Eye: Normal Inspection Respiratory/Chest: No Respiratory Distress, Lungs Clear, Normal Breath Sounds, No Accessory Muscle Use, Chest Non-Tender Cardiovascular: Normal Peripheral Pulses, Regular Rate, Rhythm, No Edema, No Murmur GI/Abdominal: Normal Bowel Sounds, Soft, Non-Tender, No Organomegaly, No Abnormal Bruit, No Mass Back Exam: Other ( Marked tenderness over the L4-L5 and L5-S1 facet joint on the left side with some mild overlying muscle spasm. Most the pain is in the superior aspect of the SI joint on the left side. This is exactly where the neurostimulator device is implanted over the SI joint. No signs of infection in this area.) Extremities: Normal Inspection, Normal Range of Motion, Non-Tender, No Pedal Edema, Normal Capillary Refill Neurological: Alert, Normal Mood/Affect, Normal Dorsiflexion, CN II-XII Intact, Normal Plantar Flexion, Normal Reflexes, No Motor/Sensory Deficits, Oriented x 3 , Straight Leg Raise (L), Straight Leg Raise (R), Difficulty Walking. No: Normal Gait DTR - Lower Extremities: 1+: Ankle (R), Ankle (L), 2+: Knee (R), Knee (L) Psychiatric: Normal Affect, Normal Mood Skin Exam: Warm, Dry, Intact, Normal Color, No Rash Course - Vital Signs Last Recorded V/S: Last Vital Signs Temp 35.4 C 11/25/16 08:40 Pulse 73 11/25/16 10:14 Resp 16 11/25/16 10:14 BP 140/99 H 11/25/16 10:14 Pulse Ox 97 11/25/16 10:14 - Orders/Labs/Meds Meds: Medications Discontinued Medications Generic Name Dose Route Start Last Admin Trade Name Freq PRN Reason Stop Dose Admin Hydromorphone HCl 1 mg 11/25/16 09:10 11/25/16 09:17 Dilaudid IM 11/25/16 09:11 1 mg ONETIME ONE Administration Promethazine HCl 25 mg 11/25/16 09:10 11/25/16 09:16 Phenergan IM 11/25/16 09:11 25 mg ONETIME ONE Administration - Radiology Interpretation Free Text/Narrative:: 51-year-old female presents with an acute exacerbation of chronic low back pain. 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 Pain is primarily left lower back and into the left sacroiliac joint in this right find most of her pain to be limited to the upper superior aspect of the SI joint. There is L4-L5 facet joint tenderness with overlying mild muscle spasm as well. She did have a CT scan of her lumbar spine performed this morning and I have a look at it. There is mild disc bulge circumferentially at 4 and 5 but I could not see any your neural foraminal encroachment. The SI joint also appears normal. Plan given IM injection of Dilaudid 1 mg with Phenergan 25 mg IM for acute pain relief. Plan is to discharge her home on Percocet 07/29/24 one or 2 every 4-6 hours as needed for pain relief. She is on Nembutal and twice a day for inflammation. This is a chronic medication. And I will therefore place her on a short course of steroid prednisone 20 mg twice a day for 5 days with breakfast and supper and one in the morning only for another 5 days to further reduce her inflammation. - Re-Assessments/Exams Free Text/Narrative Re-Assessment/Exam: 11/25/16 10:00: patient reports her pain is much improved after the IM injection. She is only scaling slightly tired from the Phenergan at this time. She will therefore be discharged home in the care of her friend. She has the next 2 days off of work and hopefully her inflammation will settle and she will return to work at least on a part-time basis or modified work duties at [employer]. Departure - Departure Time of Disposition: 10:02 Disposition: Home, Self-Care 01 Condition: Fair Clinical Impression: Back pain, lumbosacral, Sacroiliitis - Discharge Information Prescriptions: oxyCODONE HCl/Acetaminophen [Percocet 5-325 mg Tablet] 1 - 2 each PO Q4H PRN # 24 tablet PRN Reason: pain relief. predniSONE [Deltasone] 20 mg PO ASDIRECTED #15 tablet Instructions: Back Pain, Adult Referrals: Candida Limon PA [Primary Care Provider] - Forms: ED Department Discharge Additional Instructions: Evaluation in the ED today in regards to increased low back pain over the last several weeks to the point that it's become intolerable in interfering with sleep and work. CT scan of the lumbar spine was performed this morning ordered by another provider and it shows circumferential disc bulge at 45 but it does not show any nerve root impingement or what they call a pinched nerve. Very little degenerative changes in the lower back at the facet joints. SI joint appears preserved. Impression is that there is a marked inflammation in the L4- L5 and L5-S1 facet joints and also in the left sacroiliac joint. We call this sacroiliitis. Therefore treatment is time to heal and physiotherapy may help a good deal with ultrasound and exercise program. In the meantime may use Percocet tabs 07/29/24 one or 2 every 4-6 hours for pain relief while not driving or operating a motor vehicle. Use Deltasone 20 mg with breakfast and supper for 5 days then 1 in the morning for another 5 days to relieve inflammation. Her nabumetone as you have been using in the past. Orphenadrine may be used at bedtime as it does cause some degree of sedation. Follow-up with her personal care provider for the definitive radiology report of the CT of your back. If things don't settle down he may benefit from an injection in your sacroiliac joint.
[2016-11-25 10:37] VITALS: BP 140/99
== END 2016-11-25 10:14 | disposition home or self-care (01) ==
LOC: JD.ED 08:36
DX: M46.1 Sacroiliitis, not elsewhere classified (principal); F17.210 Nicotine dependence, cigarettes, uncomplicated; E78.00 Pure hypercholesterolemia, unspecified; F32.9 Major depressive disorder, single episode, unspecified; K21.9 Gastro-esophageal reflux disease without esophagitis; E66.9 Obesity, unspecified; Z86.73 Personal history of transient ischemic attack (TIA), and cerebral infarction without residual deficits; Z79.899 Other long term (current) drug therapy; Z90.49 Acquired absence of other specified parts of digestive tract; Z90.710 Acquired absence of both cervix and uterus; Z88.6 Allergy status to analgesic agent; Z88.5 Allergy status to narcotic agent; Z88.8 Allergy status to other drugs, medicaments and biological substances; Z88.2 Allergy status to sulfonamides; Z68.35 Body mass index [BMI] 35.0-35.9, adult; G89.29 Other chronic pain; M54.5 Low back pain; M47.896 Other spondylosis, lumbar region; M51.86 Other intervertebral disc disorders, lumbar region
CPT/HCPCS: 72131; 96372; 99283; J1170; J2550

== ENCOUNTER 2016-12-09 17:37 | Emergency (ER) | payer MEDICAID ==
[2016-12-09 18:06] VITALS: BP 134/100
--- NOTE | 2016-12-09 18:36 | EDM.PDOC ---
ED HPI GENERAL MEDICAL PROBLEM - General Chief Complaint: ENT Problem Stated Complaint: TOOTH PAIN Time Seen by Provider: 12/09/16 18:23 Source of Information: Reports: Patient History Limitations: Reports: No Limitations - History of Present Illness INITIAL COMMENTS - FREE TEXT/NARRATIVE: 51-year-old female presents for evaluation and treatment of tooth pain. Patient reports she has been having pain to the upper left side of her mouth for the last one and half weeks. She reports that she was seen in the clinic yesterday and started on clindamycin. She states that she is having extreme pain and can no longer tolerate the pain. She has been taking the clindamycin as prescribed. She has not seen a dentist in the last 10 years. Reports that she cannot afford a dentist at this time. States she does not have dental insurance. She has no dental appointment currently. She denies any fevers, chills, nausea or vomiting. Left Upper Oral/Mouth Pain Score (Numeric/FACES): 10 - Related Data Allergies Allergy/AdvReac Type Severity Reaction Status Date / Time ibuprofen Allergy Itching Verified 11/25/16 08:52 ketorolac tromethamine Allergy Rash Verified 11/25/16 08:52 [From Toradol] naproxen Allergy Itching Verified 11/25/16 08:52 Sulfa (Sulfonamide Allergy Rash Verified 11/25/16 08:52 Antibiotics) sumatriptan [From Imitrex] Allergy Anaphylactic Verified 11/25/16 08:52 Shock sumatriptan succinate Allergy Anaphylactic Verified 11/25/16 08:52 [From Imitrex] Shock tramadol Allergy Rash Verified 11/25/16 08:52 diphenhydramine HCl AdvReac Headache Verified 11/25/16 08:52 [From Benadryl] MSG Allergy Anxiety Uncoded 11/25/16 08:52 Home Meds: Home Meds Venlafaxine HCl [Venlafaxine ER] 150 mg PO DAILY 10/10/16 [History] hydrOXYzine Pamoate [Vistaril] 50 mg PO Q8H 10/26/16 [History] Nabumetone 500 mg PO BID PRN 11/25/16 [History] Orphenadrine [Norflex] 100 mg PO BID PRN 11/25/16 [History] oxyCODONE HCl/Acetaminophen [Percocet 5-325 mg Tablet] 1 - 2 each PO Q4H PRN # 24 tablet 11/25/16 [Rx] predniSONE [Deltasone] 20 mg PO ASDIRECTED #15 tablet 11/25/16 [Rx] Past Medical History HEENT History: Reports: Impaired Vision Other HEENT History: wears corrective lenses Cardiovascular History: Reports: High Cholesterol Respiratory History: Reports: Other (See Below) Other Respiratory History: restrictive lung disease Gastrointestinal History: Reports: Gastritis, GERD, Other (See Below) Other Gastrointestinal History: esophageal stricture, abdominal pain lowere, Genitourinary History: Reports: Urinary Incontinence Other Genitourinary History: implantable device interstim 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: Musculoskeletal History: Reports: Back Pain, Chronic Neurological History: Reports: CVA, Migraines Other Neuro History: denies epilepsy Psychiatric History: Reports: Addiction, Anxiety, Depression, Suicide Attempt, Other (See Below) Other Psychiatric History: drug overdose, personality disorder, alcohol withdrawal Endocrine/Metabolic History: Reports: Obesity/BMI 30+ Dermatologic History: Reports: Other (See Below) Other Dermatologic History: skin lesion - Infectious Disease History Infectious Disease History: Reports: Chicken Pox - Past Surgical History HEENT Surgical History: Reports: None Cardiovascular Surgical History: Reports: None GI Surgical History: Reports: Appendectomy, Cholecystectomy, EGD Female Surgical History: Reports: Hysterectomy, Salpingo-Oophorectomy, Tubal Ligation Social & Family History - Family History Family Medical History: Noncontributory Cardiac: Reports: Bypass, CAD, Heart Failure - Tobacco Use Smoking Status *Q: Former Smoker Years of Tobacco use: 7 Packs/Tins Daily: 0.2 Used Tobacco, but Quit: No Month Tobacco Last Used: 6 Second Hand Smoke Exposure: Yes - Caffeine Use Caffeine Use: Reports: Soda - Alcohol Use Days Per Week of Alcohol Use: 7 Number of Drinks Per Day: 1 Total Drinks Per Week: 7 - Recreational Drug Use Recreational Drug Use: No Drug Use in Last 12 Months: Yes Recreational Drug Type: Reports: Fentanyl, Marijuana/Hashish, Methamphetamine Recreational Drug Use Frequency: Not Used In Over 5 Months - Living Situation & Occupation Living situation: Reports: , Other (with ex-) Occupation: Employed ([employer]) ED ROS ENT - Review of Systems Review Of Systems: See Below Constitutional: Denies: Fever, Chills HEENT: Reports: Dental Pain (left upper mouth), Other (reports no bad tast in her mouth). Denies: Ear Pain GI/Abdominal: Denies: Nausea, Vomiting ED EXAM, ENT - Physical Exam Exam: See Below Exam Limited By: No Limitations General Appearance: Alert, WD/WN, No Apparent Distress Ears: Normal External Exam, Normal Canal, Hearing Grossly Normal, Normal TMs Nose: Normal Inspection Mouth/Throat: Normal Inspection, Normal Gums, Normal Lips, Normal Oropharynx, Dental Tenderness (#11), Other (multiple missing teeth; poor dention, multiple carries). No: Dental Abcess Neck: Normal Inspection. No: Lymphadenopathy (L), Lymphadenopathy (R) Respiratory/Chest: No Respiratory Distress, Lungs Clear, Normal Breath Sounds Cardiovascular: Normal Peripheral Pulses, Regular Rate, Rhythm, No Murmur Neurological: Alert, Oriented, Normal Cognition Psychiatric: Normal Affect, Normal Mood Skin: Warm, Dry, Normal Color Course - Vital Signs Last Recorded V/S: Last Vital Signs Temp 36.7 C 12/09/16 18:02 Pulse 91 12/09/16 18:02 Resp 16 12/09/16 18:02 BP 134/100 H 12/09/16 18:02 Pulse Ox 100 12/09/16 18:02 - Re-Assessments/Exams Free Text/Narrative Re-Assessment/Exam: 12/09/16 18:30 Patient was searched on the [place] prescription drug registry. She has received 11 prescriptions for controlled substances from 7 different prescribers in the last year. Most recently she received hydrocodone #10 on 11-17. She is here requesting medication for pain tonight. She has allergies to ibuprofen, Toradol, naproxen and tramadol. I informed her that we are unable to give out narcotic medications for chronic problems. Her chart has been flagged with drug-seeking behavior and we are unable to give any narcotic medications tonight. Discharge instructions as documented. Departure - Departure Time of Disposition: 18:33 Disposition: Home, Self-Care 01 Condition: Good Clinical Impression: Tooth pain, Infected dental carries - Discharge Information Instructions: Dental Caries Referrals: Candida Limon PA [Primary Care Provider] - Forms: ED Department Discharge Additional Instructions: Continue on the clindamycin as prescribed. Recommend taking this with food. may take this with a probiotic or yogurt to help reduce upset stomach side effects. Follow up with a dentist as soon as you're able to. Recommend [facility] in [place] to see if they would be able to see you. They offer dental services on a sliding scale fee. Please call [phone] to discuss this further with them. If you are Unable to see [facility] recommend talking to a local dentist to see if you can set up a payment plan. You need to see a dentist as soon as possible. [id number] Tylenol for pain. Please return to the ER if your symptoms change or worsen.
== END 2016-12-09 18:44 | disposition home or self-care (01) ==
LOC: JD.ED 17:37
DX: K02.9 Dental caries, unspecified (principal); E78.00 Pure hypercholesterolemia, unspecified; K21.9 Gastro-esophageal reflux disease without esophagitis; F32.9 Major depressive disorder, single episode, unspecified; E66.9 Obesity, unspecified; Z90.49 Acquired absence of other specified parts of digestive tract; Z90.710 Acquired absence of both cervix and uterus; Z98.51 Tubal ligation status; Z87.891 Personal history of nicotine dependence; Z79.899 Other long term (current) drug therapy; Z88.2 Allergy status to sulfonamides; Z88.6 Allergy status to analgesic agent; Z88.8 Allergy status to other drugs, medicaments and biological substances; Z91.048 Other nonmedicinal substance allergy status; Z68.36 Body mass index [BMI] 36.0-36.9, adult
CPT/HCPCS: 99283

== ENCOUNTER 2016-12-14 12:37 | Emergency (ER) | payer MEDICAID ==
[2016-12-14 12:48] VITALS: BP 121/95
[2016-12-14] MEDS ORDERED: Orphenadrine 100 MG Tab.ER PO ONE (13:24)
[2016-12-14] MEDS ORDERED: Acetaminophen/HYDROcodone 325-5 MG Tab PO ONE (13:24)
--- NOTE | 2016-12-14 13:26 | EDM.PDOC ---
ED HPI GENERAL MEDICAL PROBLEM - General Stated Complaint: [facility] Time Seen by Provider: 12/14/16 13:03 Source of Information: Reports: Patient History Limitations: Reports: No Limitations - History of Present Illness INITIAL COMMENTS - FREE TEXT/NARRATIVE: Patient is a 51-year-old female presents ED complaining of right lower back pain. Patient states this morning while stepping out of bed approximately hour and a half ago she's had sudden onset of discomfort. Pain is localized constant with waxing waning in intensity. Described as a spasming sensation with no radiation. She states with short intense worsening of the pain did have incontinence to urine twice. She denies any saddle anesthesia or incontinence of stool/urine with admission to the E.D. She has had no incontinence to urine since transported to the ED. She was evaluated 3 weeks ago in the ED and diagnosed with bulging disc at L3/L4/L5. She was scheduled to see a neurologist in [place] but canceled it due to work. No new appointment has been rescheduled. Her primary care provider is placed her on a NSAID, Tylenol, and orphenadrine. She is on no narcotic medications at this point. 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 She drinks everyday she is off of work. She denies any fever , chest pain, short of breath, abdominal pain, dysuria, numbness and tingling to extremities, weakness to her lower extremities or any additional complaints. Back Pain Score (Numeric/FACES): 8 - Related Data Allergies Allergy/AdvReac Type Severity Reaction Status Date / Time ibuprofen Allergy Itching Verified 12/14/16 12:45 ketorolac tromethamine Allergy Rash Verified 12/14/16 12:45 [From Toradol] naproxen Allergy Itching Verified 12/14/16 12:45 Sulfa (Sulfonamide Allergy Rash Verified 12/14/16 12:45 Antibiotics) sumatriptan [From Imitrex] Allergy Anaphylactic Verified 12/14/16 12:45 Shock sumatriptan succinate Allergy Anaphylactic Verified 12/14/16 12:45 [From Imitrex] Shock tramadol Allergy Rash Verified 12/14/16 12:45 diphenhydramine HCl AdvReac Headache Verified 12/14/16 12:45 [From Benadryl] MSG Allergy Anxiety Uncoded 12/14/16 12:45 Home Meds: Home Meds Venlafaxine HCl [Venlafaxine ER] 150 mg PO DAILY 10/10/16 [History] hydrOXYzine Pamoate [Vistaril] 50 mg PO Q8H 10/26/16 [History] Nabumetone 500 mg PO BID PRN 11/25/16 [History] Orphenadrine [Norflex] 100 mg PO BID PRN 11/25/16 [History] oxyCODONE HCl/Acetaminophen [Percocet 5-325 mg Tablet] 1 - 2 each PO Q4H PRN # 24 tablet 11/25/16 [Rx] predniSONE [Deltasone] 20 mg PO ASDIRECTED #15 tablet 11/25/16 [Rx] Past Medical History HEENT History: Reports: Impaired Vision Other HEENT History: wears corrective lenses Cardiovascular History: Reports: High Cholesterol Respiratory History: Reports: Other (See Below) Other Respiratory History: restrictive lung disease Gastrointestinal History: Reports: Gastritis, GERD, Other (See Below) Other Gastrointestinal History: esophageal stricture, abdominal pain lowere, Genitourinary History: Reports: Urinary Incontinence Other Genitourinary History: implantable device interstim 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: Musculoskeletal History: Reports: Back Pain, Chronic Neurological History: Reports: CVA, Migraines Other Neuro History: denies epilepsy Psychiatric History: Reports: Addiction, Anxiety, Depression, Suicide Attempt, Other (See Below) Other Psychiatric History: drug overdose, personality disorder, alcohol withdrawal Endocrine/Metabolic History: Reports: Obesity/BMI 30+ Dermatologic History: Reports: Other (See Below) Other Dermatologic History: skin lesion - Infectious Disease History Infectious Disease History: Reports: Chicken Pox - Past Surgical History HEENT Surgical History: Reports: None Cardiovascular Surgical History: Reports: None GI Surgical History: Reports: Appendectomy, Cholecystectomy, EGD Female Surgical History: Reports: Hysterectomy, Salpingo-Oophorectomy, Tubal Ligation Social & Family History - Family History Family Medical History: Noncontributory Cardiac: Reports: Bypass, CAD, Heart Failure - Tobacco Use Smoking Status *Q: Former Smoker Years of Tobacco use: 7 Packs/Tins Daily: 0.2 Used Tobacco, but Quit: No Month Tobacco Last Used: 6 Second Hand Smoke Exposure: Yes - Caffeine Use Caffeine Use: Reports: Soda - Alcohol Use Days Per Week of Alcohol Use: 7 Number of Drinks Per Day: 1 Total Drinks Per Week: 7 - Recreational Drug Use Recreational Drug Use: No Drug Use in Last 12 Months: Yes Recreational Drug Type: Reports: Fentanyl, Marijuana/Hashish, Methamphetamine Recreational Drug Use Frequency: Not Used In Over 5 Months - Living Situation & Occupation Living situation: Reports: , Other (with ex-) Occupation: Employed ([employer]) ED ROS GENERAL - Review of Systems Review Of Systems: ROS reveals no pertinent complaints other than HPI. ED EXAM,LOWER BACK PAIN/INJURY - Physical Exam Exam: See Below Exam Limited By: No Limitations General Appearance: Alert, WD/WN, Mild Distress Ears: Hearing Grossly Normal Nose: Normal Inspection Throat/Mouth: Normal Voice, No Airway Compromise Neck: Normal Inspection, Supple Respiratory/Chest: No Respiratory Distress, Lungs Clear, Normal Breath Sounds, No Accessory Muscle Use, Chest Non-Tender Cardiovascular: Normal Peripheral Pulses, Regular Rate, Rhythm, No Murmur GI/Abdominal: Normal Bowel Sounds, Soft, Non-Tender, No Organomegaly, No Distention Back Exam: Muscle Spasm, Other (Pain along the right lower back including paraspinal muscle. ). No: Paraspinal Tenderness, Vertebral Tenderness Extremities: Normal Inspection, Normal Range of Motion, Non-Tender, No Pedal Edema, Normal Capillary Refill Neurological: Alert, Normal Mood/Affect, Normal Dorsiflexion, CN II-XII Intact, Normal Plantar Flexion, No Motor/Sensory Deficits, Oriented x 3. No: Straight Leg Raise (L), Straight Leg Raise (R), Saddle Anesthesia (Per patient) Psychiatric: Normal Affect, Normal Mood Skin Exam: Warm, Dry, Intact, Normal Color Course - Vital Signs Last Recorded V/S: Last Vital Signs Temp 96.9 F 12/14/16 12:46 Pulse 88 12/14/16 12:46 Resp 20 12/14/16 12:46 BP 121/95 H 12/14/16 12:46 Pulse Ox 99 12/14/16 12:46 - Orders/Labs/Meds Meds: Medications Discontinued Medications Generic Name Dose Route Start Last Admin Trade Name Freq PRN Reason Stop Dose Admin Hydrocodone Bitart/Acetaminophen 1 tab 12/14/16 13:24 12/14/16 13:48 [place] 325-5 Mg PO 12/14/16 13:25 1 tab ONETIME ONE Administration Orphenadrine Citrate 100 mg 12/14/16 13:24 12/14/16 13:48 Norflex PO 12/14/16 13:25 100 mg ONETIME ONE Administration - Re-Assessments/Exams Free Text/Narrative Re-Assessment/Exam: Patient has discomfort to her right lower back worsened with palpation and movement. No findings suggest studies are required. Ordered [place] one tab by mouth and also Norflex one tab by mouth. Patient has alcohol onboard states she took 3 whiskey shots approximately 3 hours ago. 12/14/16 1358 Reassessment, patient is receiving the medications. She is sitting in the room in no acute distress. She's looking on her phone. This is a drastic change from when I was obtaining history and examining her. During the history taking patient was flinching as if she was having sharp spasming discomfort. It was difficult to obtain history due to the pain/discomfort she was experiencing. Patient may have some drug-seeking behaviors. 12/14/16 14:42 Reassessment, patients pain has improved with the above therapies. Pain has not completely resolved. She has been up to the bathroom to urinate with no issues. Patient requesting additional narcotic medications for pain relief. Searched [place] Pharmacy Database with report findings she recently was provide a prescription for oxycodone 5-325 #20 11/26/2016, hydrocodone 5-325 #10 11/17/2016, hydrocodone 5-325 11/11/2016, and hydrocodone 5 -325 #10 October 26, 2016. I have schedule an appointment with her PCP for tomorrow at 10:00 in the morning. Departure - Departure Time of Disposition: 14:47 Disposition: Home, Self-Care 01 Condition: Good Clinical Impression: Alcohol use, Drug-seeking behavior Chronic low back pain without sciatica Qualifiers: Back pain laterality: right Qualified Code(s): M54.5 - Low back pain - Discharge Information Instructions: Muscle Strain, [id number], Back Pain, Adult, [id number], Pain Medicine Instructions, [id number], Chronic Back Pain Referrals: Candida Limon PA [Primary Care Provider] - Forms: ED Department Discharge Additional Instructions: Continue taking all your home medications as prescribed. Refrain from any activities that cause worsening pain. No driving this afternoon since receiving a sedative medications. See your PCP tomorrow morning at 10:00 for reevaluation and treatment. Return to the ED for any new or worsening symptoms as discussed. Refrain from alcohol use while taking any type of muscle relaxer.
== END 2016-12-14 15:00 | disposition home or self-care (01) ==
LOC: JD.ED 12:37
DX: M62.830 Muscle spasm of back (principal); M54.5 Low back pain; E78.00 Pure hypercholesterolemia, unspecified; K21.9 Gastro-esophageal reflux disease without esophagitis; F41.9 Anxiety disorder, unspecified; F32.9 Major depressive disorder, single episode, unspecified; E66.9 Obesity, unspecified; Z90.49 Acquired absence of other specified parts of digestive tract; Z90.710 Acquired absence of both cervix and uterus; Z87.891 Personal history of nicotine dependence; Z88.6 Allergy status to analgesic agent; Z88.2 Allergy status to sulfonamides; Z88.5 Allergy status to narcotic agent; Z79.899 Other long term (current) drug therapy; Z76.5 Malingerer [conscious simulation]; Z68.34 Body mass index [BMI] 34.0-34.9, adult; Z72.89 Other problems related to lifestyle
CPT/HCPCS: 99284; A9270; 99283

== ENCOUNTER 2017-01-03 07:28 | Emergency (ER) | payer MEDICAID, OTHER ==
[2017-01-03 07:46] VITALS: BP 156/90
[2017-01-03] MEDS ORDERED: Sodium Chloride 0.9% 1,000 ML IV STA (07:59)
[2017-01-03] MEDS ORDERED: Ondansetron 4 MG/2 ML SDV IVPUSH ONE (07:59)
[2017-01-03] MEDS: Sodium Chloride 0.9% 10 ML Syringe FLUSH PRN ×2 (08:10→09:15)
--- NOTE | 2017-01-03 08:54 | EDM.PDOC ---
ED HPI GENERAL MEDICAL PROBLEM - General Chief Complaint: Gastrointestinal Problem Stated Complaint: VOMITING Time Seen by Provider: 01/03/17 07:53 Source of Information: Reports: Patient History Limitations: Reports: No Limitations - History of Present Illness INITIAL COMMENTS - FREE TEXT/NARRATIVE: The patient presents with right sided abdominal pain, nausea and vomiting. She has a history of alcoholism. She started drinking again a few months ago. She drinks hard liquor daily. She last drank yesterday morning. This started yesterday after she went to work. She also has some diarrhea with this. She has no gallbladder or appendix these were both removed. The patient did eat a reheated chicken dish yesterday and she got sick after that. Onset: Gradual Duration: Day(s): (Yesterday) Location: Reports: Abdomen Quality: Reports: Sharp Severity: Moderate Improves with: Reports: None Worsens with: Reports: None Associated Symptoms: Reports: Nausea/Vomiting. Denies: Cough, Fever/Chills, Loss of Appetite, Shortness of Breath Right Abdomen Pain Score (Numeric/FACES): 9 - Related Data Allergies Allergy/AdvReac Type Severity Reaction Status Date / Time ibuprofen Allergy Itching Verified 01/03/17 07:46 ketorolac tromethamine Allergy Rash Verified 01/03/17 07:46 [From Toradol] naproxen Allergy Itching Verified 01/03/17 07:46 Sulfa (Sulfonamide Allergy Rash Verified 01/03/17 07:46 Antibiotics) sumatriptan [From Imitrex] Allergy Anaphylactic Verified 01/03/17 07:46 Shock sumatriptan succinate Allergy Anaphylactic Verified 01/03/17 07:46 [From Imitrex] Shock tramadol Allergy Rash Verified 01/03/17 07:46 diphenhydramine HCl AdvReac Headache Verified 01/03/17 07:46 [From Benadryl] MSG Allergy Anxiety Uncoded 12/14/16 12:45 Home Meds: Home Meds Venlafaxine HCl [Venlafaxine ER] 150 mg PO DAILY 10/10/16 [History] Hydrocodone/Acetaminophen [Hydrocodon-Acetaminophen 5-325] 1 - 2 each PO Q6HR PRN #10 tablet 01/03/17 [Rx] LORazepam [Ativan] 1 mg PO TID PRN #10 tablet 01/03/17 [Rx] Ondansetron [Zofran ODT] 4 mg PO Q6H PRN #20 tab.dis 01/03/17 [Rx] Past Medical History HEENT History: Reports: Impaired Vision Other HEENT History: wears corrective lenses Cardiovascular History: Reports: High Cholesterol Respiratory History: Reports: Other (See Below) Other Respiratory History: restrictive lung disease Gastrointestinal History: Reports: Gastritis, GERD, Other (See Below) Other Gastrointestinal History: esophageal stricture, abdominal pain lowere, Genitourinary History: Reports: Urinary Incontinence Other Genitourinary History: implantable device interstim RLQ [employer] History: Reports: Musculoskeletal History: Reports: Back Pain, Chronic Neurological History: Reports: CVA, Migraines Other Neuro History: denies epilepsy Psychiatric History: Reports: Addiction, Anxiety, Depression, Suicide Attempt, Other (See Below) Other Psychiatric History: drug overdose, personality disorder, alcohol withdrawal Endocrine/Metabolic History: Reports: Obesity/BMI 30+ Dermatologic History: Reports: Other (See Below) Other Dermatologic History: skin lesion - Infectious Disease History Infectious Disease History: Reports: Chicken Pox - Past Surgical History HEENT Surgical History: Reports: None Cardiovascular Surgical History: Reports: None GI Surgical History: Reports: Appendectomy, Cholecystectomy, EGD Female Surgical History: Reports: Hysterectomy, Salpingo-Oophorectomy, Tubal Ligation Social & Family History - Family History Family Medical History: Noncontributory Cardiac: Reports: Bypass, CAD, Heart Failure - Tobacco Use Smoking Status *Q: Current Every Day Smoker Years of Tobacco use: 7 Packs/Tins Daily: 0.2 Used Tobacco, but Quit: No Month Tobacco Last Used: 6 Second Hand Smoke Exposure: Yes - Caffeine Use Caffeine Use: Reports: Coffee, Soda - Alcohol Use Days Per Week of Alcohol Use: 7 Number of Drinks Per Day: 3 Total Drinks Per Week: 21 Date of Last Drink: 01/02/17 - Recreational Drug Use Recreational Drug Use: No Drug Use in Last 12 Months: Yes Recreational Drug Type: Reports: Fentanyl, Marijuana/Hashish, Methamphetamine Recreational Drug Use Frequency: Not Used In Over 5 Months - Living Situation & Occupation Living situation: Reports: , Other (with ex-) Occupation: Employed ([employer]) [facility] - Review of Systems Review Of Systems: See Below Constitutional: Reports: No Symptoms HEENT: Reports: No Symptoms Respiratory: Reports: No Symptoms Cardiovascular: Reports: No Symptoms Endocrine: Reports: No Symptoms GI/Abdominal: Reports: Abdominal Pain, Diarrhea, Nausea, Vomiting : Reports: No Symptoms Musculoskeletal: Reports: No Symptoms Skin: Reports: No Symptoms Neurological: Reports: No Symptoms ED EXAM, GI/ABD - Physical Exam Exam: See Below Exam Limited By: No Limitations General Appearance: Alert, No Apparent Distress Ears: Normal External Exam Nose: Normal Inspection Head: Atraumatic, Normocephalic Neck: Normal Inspection Respiratory/Chest: No Respiratory Distress, Lungs Clear, Normal Breath Sounds Cardiovascular: Regular Rate, Rhythm, No Edema, No Murmur GI/Abdominal Exam: Soft, No Organomegaly, No Mass, Tender (Moderate to the right abdomen) Course - Vital Signs Last Recorded V/S: Last Vital Signs Temp 98.1 F 01/03/17 07:42 Pulse 90 01/03/17 07:42 Resp 12 01/03/17 07:42 BP 156/90 H 01/03/17 07:42 Pulse Ox 100 01/03/17 07:42 - Orders/Labs/Meds Orders: Active Orders 24 hr Category Date Time Status Peripheral IV Care [RC] . DIRECTED Care 01/03/17 07:59 Active Abdomen Pelvis w Cont [CT] Stat Exams 01/03/17 07:59 Taken Sodium Chloride 0.9% [Saline Flush] Med 01/03/17 07:59 Active 10 ml FLUSH ASDIRECTED PRN ED Antiemetic Medication Reflex [OM.PC] Stat Oth 01/03/17 07:59 Ordered Peripheral IV Insertion Adult [OM.PC] Stat Oth 01/03/17 07:59 Ordered Medication Orders Sodium Chloride (Saline Flush) 10 ml FLUSH ASDIRECTED PRN PRN Reason: Keep Vein Open Last Admin: 01/03/17 09:15 Dose: 10 ml Admin: 01/03/17 08:10 Dose: 10 ml Labs: Laboratory Tests 01/03/17 01/03/17 01/03/17 Range/Units 08:45 08:45 08:45 WBC 6.62 (3.98-10.04) K/mm3 RBC 4.57 (3.98-5.22) M/mm3 Hgb 14.5 (11.2-15.7) gm/L Hct 42.7 (34.1-44.9) % MCV 93.4 (79.4-94.8) fl MCH 31.7 (25.6-32.2) pg MCHC 34.0 (32.2-35.5) g/dl RDW Std Deviation 46.9 H (36.4-46.3) fL Plt Count 266 (182-369) K/mm3 MPV 10.0 (9.4-12.3) fl Neut % (Auto) 71.4 H (34.0-71.1) % Lymph % (Auto) 18.4 L (19.3-51.7) % [place] % (Auto) 8.0 (4.7-12.5) % Eos % (Auto) 1.5 (0.7-5.8) Baso % (Auto) 0.5 (0.1-1.2) % Neut # (Auto) 4.73 (1.56-6.13) K/mm3 Lymph # (Auto) 1.22 (1.18-3.74) K/mm3 [place] # (Auto) 0.53 H (0.24-0.36) K/mm3 Eos # (Auto) 0.10 (0.04-0.36) K/mm3 Baso # (Auto) 0.03 (0.01-0.08) K/mm3 Sodium 143 (136-145) mEq/L Potassium 3.4 L (3.5-5.1) mEq/L Chloride 106 (98-107) mEq/L Carbon Dioxide 25 (21-32) mEq/L Anion Gap 15.4 H (5-15) BUN 10 (7-18) mg/dL Creatinine 0.9 (0.55-1.02) mg/dL Est Cr Clr Drug Dosing 65.80 mL/min Estimated GFR (MDRD) > 60 (>60) mL/min BUN/Creatinine Ratio 11.1 L (14-18) Glucose 105 (74-106) mg/dL Calcium 8.9 (8.5-10.1) mg/dL Total Bilirubin 0.9 (0.2-1.0) mg/dL AST 48 H (15-37) U/L ALT 65 H (14-59) U/L Alkaline Phosphatase 111 (46-116) U/L Total Protein 7.0 (6.4-8.2) g/dl Albumin 3.7 (3.4-5.0) g/dl Globulin 3.3 gm/dL Albumin/Globulin Ratio 1.1 (1-2) Lipase 111 (73-393) U/L HCG, Qual Negative (NEGATIVE) Urine Color (Yellow) Urine Appearance (Clear) Urine pH (5.0-8.0) Ur Specific [place] (1.005-1.030) Urine Protein (Negative) Urine Glucose (UA) (Negative) Urine Ketones (Negative) Urine Occult Blood (Negative) Urine Nitrite (Negative) Urine Bilirubin (Negative) Urine Urobilinogen (0.2-1.0) Ur Leukocyte Esterase (Negative) Urine RBC (0-5) /hpf Urine WBC (0-5) /hpf Ur Epithelial Cells (0-5) /hpf Urine Bacteria (FEW) /hpf Urine Mucus (FEW) /hpf Ethyl Alcohol 0.00 (0.00) gm% 01/03/17 Range/Units 10:00 WBC (3.98-10.04) K/mm3 RBC (3.98-5.22) M/mm3 Hgb (11.2-15.7) gm/L Hct (34.1-44.9) % MCV (79.4-94.8) fl MCH (25.6-32.2) pg MCHC (32.2-35.5) g/dl RDW Std Deviation (36.4-46.3) fL Plt Count (182-369) K/mm3 MPV (9.4-12.3) fl Neut % (Auto) (34.0-71.1) % Lymph % (Auto) (19.3-51.7) % [place] % (Auto) (4.7-12.5) % Eos % (Auto) (0.7-5.8) Baso % (Auto) (0.1-1.2) % Neut # (Auto) (1.56-6.13) K/mm3 Lymph # (Auto) (1.18-3.74) K/mm3 [place] # (Auto) (0.24-0.36) K/mm3 Eos # (Auto) (0.04-0.36) K/mm3 Baso # (Auto) (0.01-0.08) K/mm3 Sodium (136-145) mEq/L Potassium (3.5-5.1) mEq/L Chloride (98-107) mEq/L Carbon Dioxide (21-32) mEq/L Anion Gap (5-15) BUN (7-18) mg/dL Creatinine (0.55-1.02) mg/dL Est Cr Clr Drug Dosing mL/min Estimated GFR (MDRD) (>60) mL/min BUN/Creatinine Ratio (14-18) Glucose (74-106) mg/dL Calcium (8.5-10.1) mg/dL Total Bilirubin (0.2-1.0) mg/dL AST (15-37) U/L ALT (14-59) U/L Alkaline Phosphatase (46-116) U/L Total Protein (6.4-8.2) g/dl Albumin (3.4-5.0) g/dl Globulin gm/dL Albumin/Globulin Ratio (1-2) Lipase (73-393) U/L HCG, Qual (NEGATIVE) Urine Color Yellow (Yellow) Urine Appearance Clear (Clear) Urine pH 7.0 (5.0-8.0) Ur Specific [place] 1.015 (1.005-1.030) Urine Protein Negative (Negative) Urine Glucose (UA) Negative (Negative) Urine Ketones Negative (Negative) Urine Occult Blood Trace-lysed H (Negative) Urine Nitrite Negative (Negative) Urine Bilirubin Negative (Negative) Urine Urobilinogen 0.2 (0.2-1.0) Ur Leukocyte Esterase Negative (Negative) Urine RBC 0-5 (0-5) /hpf Urine WBC Not seen (0-5) /hpf Ur Epithelial Cells 5-10 H (0-5) /hpf Urine Bacteria Few (FEW) /hpf Urine Mucus Not seen (FEW) /hpf Ethyl Alcohol (0.00) gm% Meds: Medications Generic Name Dose Route Start Last Admin Trade Name Freq PRN Reason Stop Dose Admin Sodium Chloride 10 ml 01/03/17 07:59 01/03/17 09:15 Saline Flush FLUSH 10 ml ASDIRECTED PRN Administration Keep Vein Open Discontinued Medications Generic Name Dose Route Start Last Admin Trade Name Freq PRN Reason Stop Dose Admin Hydromorphone HCl 0.5 mg 01/03/17 10:06 01/03/17 10:28 Dilaudid IVPUSH 01/03/17 10:07 0.5 mg ONETIME ONE Administration Sodium Chloride 1,000 mls @ 1,000 mls/hr 01/03/17 07:59 01/03/17 08:10 Normal Saline IV 01/03/17 08:58 1,000 mls/hr .BOLUS STA Administration Iopamidol 125 ml 01/03/17 09:14 01/03/17 09:15 Isovue-300 (61%) IVPUSH 01/03/17 09:15 125 ml ONETIME ONE Administration Lorazepam 1 mg 01/03/17 10:06 01/03/17 10:28 Ativan IVPUSH 01/03/17 10:07 1 mg ONETIME ONE Administration Ondansetron HCl 4 mg 01/03/17 07:59 01/03/17 08:09 Zofran IVPUSH 01/03/17 08:00 4 mg ONETIME ONE Administration - Re-Assessments/Exams Free Text/Narrative Re-Assessment/Exam: 01/03/17 10:50 I ordered an IV NS 1L bolus, zofran 4mg IV, labs, UA and CT of her abdomen and pelvis. Her CBC looks good. Her K was a little low at 3.4. Her AST was 48 and her ALT was elevated at 65. Her lipase was negative. His HCG is negative. Her UA shows no UTI. Her ETOH was negative. Her CT shows no acute inflammation or bowel obstruction. She had more pain and anxiety so I ordered ativan 1mg IV and dilaudid 0.5mg IV. I will discharge her with some cipro, zofran, and some ativan. Departure - Departure Time of Disposition: 10:55 Disposition: Home, Self-Care 01 Condition: Good Clinical Impression: Gastroenteritis, Alcohol use - Discharge Information Prescriptions: Hydrocodone/Acetaminophen [Hydrocodon-Acetaminophen 5-325] 1 - 2 each PO Q6HR PRN #10 tablet PRN Reason: Pain LORazepam [Ativan] 1 mg PO TID PRN #10 tablet PRN Reason: Anxiety Ondansetron [Zofran ODT] 4 mg PO Q6H PRN #20 tab.dis PRN Reason: Nausea/Vomiting Referrals: Candida Limon PA [Primary Care Provider] - Forms: ED Department Discharge Additional Instructions: Take the zofran every 6 hours as needed for nausea and vomiting. Take the ativan every 8 hours as needed for anxiety. Follow up with your doctor. - My Orders Last 24 Hours: My Active Orders 01/03/17 07:59 Peripheral IV Care [RC] . DIRECTED Abdomen Pelvis w Cont [CT] Stat Sodium Chloride 0.9% [Saline Flush] 10 ml FLUSH ASDIRECTED PRN ED Antiemetic Medication Reflex [OM.PC] Stat Peripheral IV Insertion Adult [OM.PC] Stat - Assessment/Plan Last 24 Hours: My Active Orders 01/03/17 07:59 Peripheral IV Care [RC] . DIRECTED Abdomen Pelvis w Cont [CT] Stat Sodium Chloride 0.9% [Saline Flush] 10 ml FLUSH ASDIRECTED PRN ED Antiemetic Medication Reflex [OM.PC] Stat Peripheral IV Insertion Adult [OM.PC] Stat
[2017-01-03] MEDS ORDERED: Iopamidol 612 MG/ML 150 ML Bottle IVPUSH ONE (09:14)
[2017-01-03] MEDS ORDERED: HYDROmorphone 0.5 MG/0.5 ML Syringe IVPUSH ONE (10:06)
[2017-01-03] MEDS ORDERED: LORazepam 2 MG/ML MDV IVPUSH ONE (10:06)
--- NOTE | 2017-01-04 10:25 | CT ---
CT abdomen and pelvis Technique: Multiple axial sections were obtained from above the dome of the diaphragm inferiorly through the pubic symphysis. Intravenous contrast was utilized. No oral contrast has been given. Delayed images were obtained through the bladder. Comparison: Previous CT abdomen and pelvis exam of 12/07/15. Findings: Small portion of the visualized lung bases shows nothing acute. Fatty infiltration is seen within the liver. Previous cholecystectomy is noted. Several small low density areas within the spleen which are felt to be incidental. Adrenal glands show no nodule. Pancreas appears within normal limits. Kidneys show symmetric contrast enhancement without hydronephrosis or mass. Aorta shows no aneurysmal dilatation. No retroperitoneal adenopathy or mesenteric abnormalities are seen. Surgical clips are noted at the base of the cecum most likely due to previous cholecystectomy. No pelvic mass or adenopathy is seen. Fatty infiltration is seen within the wall of the cecum. This is incidental. Delayed images show contrast within the distal ureters and within the bladder. Electro-stimulating device is seen located within the right buttock entering the pelvis posteriorly. Bone window settings appear within normal limits for the patient's age. Impression: 1. Fatty infiltration within the liver. Other incidental findings. 2. Nothing acute is appreciated on CT study of the abdomen and pelvis. Diagnostic code #2 I agree with preliminary report issued by [employer] ([employer] preliminary report dictated on 01/03/17, 10:56 AM Central Time)
== END 2017-01-03 11:18 | disposition home or self-care (01) ==
LOC: JD.ED 07:28
DX: K52.9 Noninfective gastroenteritis and colitis, unspecified (principal); F10.10 Alcohol abuse, uncomplicated; E66.9 Obesity, unspecified; F17.210 Nicotine dependence, cigarettes, uncomplicated; Z88.6 Allergy status to analgesic agent; Z88.5 Allergy status to narcotic agent; Z88.2 Allergy status to sulfonamides; Z88.8 Allergy status to other drugs, medicaments and biological substances; Z79.899 Other long term (current) drug therapy; E78.00 Pure hypercholesterolemia, unspecified; Z68.36 Body mass index [BMI] 36.0-36.9, adult
CPT/HCPCS: 36415; 74177; 80053; 81001; 83690; 84703; 85025; 96361; 96374; 96375; 99284; G0480; J1170; J2060; J2405; J7040; J7050; Q9967

== ENCOUNTER 2017-01-11 11:25 | Emergency (ER) | payer MEDICAID ==
[2017-01-11 11:44] VITALS: BP 137/103
--- NOTE | 2017-01-11 11:45 | EDM.PDOC ---
ED HPI GENERAL MEDICAL PROBLEM - General Chief Complaint: Chest Pain Stated Complaint: CHEST PAIN/SOB/VOMITING Time Seen by Provider: 01/11/17 11:44 Source of Information: Reports: Patient History Limitations: Reports: No Limitations - History of Present Illness INITIAL COMMENTS - FREE TEXT/NARRATIVE: Patient is a 51 y/o with history of alcoholism, drug addiction,anxiety, GERD, hypercholesteremia, HTN, and personality disorder who presents to the E.D. with sudden onset of left sided chestpain. States the pain is located to the left inferior border of the chest just under the breast worsened with palpation and movement. States the pain is sharp in nature severe at times. With admission to the E.D. she is complaining of mild to moderate pain. Pain is localized. States last night she was nauseated and vomited a few times with no blood present. Questions if she had food poisoning this past Wednesday. She is also having diarrhea few times a day as well. No blood within her stool. She has had no fever. Patient states she drinks alcohol daily. Last drink was this a.m. prior to work. Denies any precipitating factors but notes vomiting may have worsened the pain. Denies fever, acid reflux, abdominal pain, dysuria, shortness of breath, back pain, dizziness, or any additional complaints. Left Chest Pain Score (Numeric/FACES): 7 - Related Data Allergies Allergy/AdvReac Type Severity Reaction Status Date / Time ibuprofen Allergy Itching Verified 01/11/17 12:24 ketorolac tromethamine Allergy Rash Verified 01/11/17 12:24 [From Toradol] naproxen Allergy Itching Verified 01/11/17 12:24 Sulfa (Sulfonamide Allergy Rash Verified 01/11/17 12:24 Antibiotics) sumatriptan [From Imitrex] Allergy Anaphylactic Verified 01/11/17 12:24 Shock sumatriptan succinate Allergy Anaphylactic Verified 01/11/17 12:24 [From Imitrex] Shock tramadol Allergy Rash Verified 01/11/17 12:24 diphenhydramine HCl AdvReac Headache Verified 01/11/17 12:24 [From Benadryl] MSG Allergy Anxiety Uncoded 01/11/17 12:25 Home Meds: Home Meds Venlafaxine HCl [Venlafaxine ER] 150 mg PO DAILY 10/10/16 [History] Ondansetron [Zofran ODT] 4 mg PO Q6H PRN #20 tab.dis 01/03/17 [Rx] Past Medical History HEENT History: Reports: Impaired Vision Other HEENT History: wears corrective lenses Cardiovascular History: Reports: High Cholesterol Respiratory History: Reports: Other (See Below) Other Respiratory History: restrictive lung disease Gastrointestinal History: Reports: Gastritis, GERD, Other (See Below) Other Gastrointestinal History: esophageal stricture, abdominal pain lowere, Genitourinary History: Reports: Urinary Incontinence Other Genitourinary History: implantable device interstim RLQ 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: Musculoskeletal History: Reports: Back Pain, Chronic Neurological History: Reports: CVA, Migraines Other Neuro History: denies epilepsy Psychiatric History: Reports: Addiction, Anxiety, Depression, Suicide Attempt, Other (See Below) Other Psychiatric History: drug overdose, personality disorder, alcohol withdrawal Endocrine/Metabolic History: Reports: Obesity/BMI 30+ Dermatologic History: Reports: Other (See Below) Other Dermatologic History: skin lesion - Infectious Disease History Infectious Disease History: Reports: Chicken Pox - Past Surgical History HEENT Surgical History: Reports: None Cardiovascular Surgical History: Reports: None GI Surgical History: Reports: Appendectomy, Cholecystectomy, EGD Female Surgical History: Reports: Hysterectomy, Salpingo-Oophorectomy, Tubal Ligation Social & Family History - Family History Family Medical History: Noncontributory Cardiac: Reports: Bypass, CAD, Heart Failure - Tobacco Use Smoking Status *Q: Current Every Day Smoker Years of Tobacco use: 7 Packs/Tins Daily: 0.2 Used Tobacco, but Quit: No Month Tobacco Last Used: 6 Second Hand Smoke Exposure: Yes - Caffeine Use Caffeine Use: Reports: Coffee, Soda - Alcohol Use Days Per Week of Alcohol Use: 7 Number of Drinks Per Day: 3 Total Drinks Per Week: 21 - Recreational Drug Use Recreational Drug Use: No Drug Use in Last 12 Months: Yes Recreational Drug Type: Reports: Fentanyl, Marijuana/Hashish, Methamphetamine Recreational Drug Use Frequency: Not Used In Over 5 Months - Living Situation & Occupation Living situation: Reports: , Other (with ex-) Occupation: Employed ([employer]) ED ROS GENERAL - Review of Systems Review Of Systems: ROS reveals no pertinent complaints other than HPI. ED EXAM, GENERAL - Physical Exam Exam: See Below Exam Limited By: No Limitations General Appearance: Alert, WD/WN, Anxious Ears: Hearing Grossly Normal Nose: Normal Inspection Throat/Mouth: Normal Oropharynx, Normal Voice, No Airway Compromise Neck: Normal Inspection, Supple, Non-Tender, Full Range of Motion. No: Carotid Bruit Respiratory/Chest: No Respiratory Distress, Lungs Clear, Normal Breath Sounds, No Accessory Muscle Use, Other (tenderness noted to the left anterior chest with palpation.) Cardiovascular: Normal Peripheral Pulses, Regular Rate, Rhythm, No Edema, No Murmur Peripheral Pulses: 2+: Radial (L), Radial (R), Posterior Tibial (L), Posterior Tibial (R) GI/Abdominal: Normal Bowel Sounds, Soft, Non-Tender, No Organomegaly, No Distention Back Exam: Normal Inspection, Full Range of Motion Extremities: Normal Inspection, Non-Tender, No Pedal Edema Neurological: Alert, Oriented, CN II-XII Intact, Normal Cognition Psychiatric: Normal Affect, Anxious Skin Exam: Warm, Dry, Intact, Normal Color Course - Vital Signs Last Recorded V/S: Last Vital Signs Temp 97.4 F 01/11/17 11:41 Pulse 92 01/11/17 11:41 Resp 14 01/11/17 11:41 BP 137/103 H 01/11/17 11:41 Pulse Ox 98 01/11/17 11:41 - Orders/Labs/Meds Labs: Laboratory Tests 01/11/17 01/11/17 01/11/17 Range/Units 12:28 13:00 13:00 WBC 5.88 (3.98-10.04) K/mm3 RBC 4.58 (3.98-5.22) M/mm3 Hgb 14.9 (11.2-15.7) gm/L Hct 43.3 (34.1-44.9) % MCV 94.5 (79.4-94.8) fl MCH 32.5 H (25.6-32.2) pg MCHC 34.4 (32.2-35.5) g/dl RDW Std Deviation 50.0 H (36.4-46.3) fL Plt Count 328 (182-369) K/mm3 MPV 10.4 (9.4-12.3) fl Neut % (Auto) 77.2 H (34.0-71.1) % Lymph % (Auto) 14.3 L (19.3-51.7) % [place] % (Auto) 7.1 (4.7-12.5) % Eos % (Auto) 0.7 (0.7-5.8) Baso % (Auto) 0.5 (0.1-1.2) % Neut # (Auto) 4.54 (1.56-6.13) K/mm3 Lymph # (Auto) 0.84 L (1.18-3.74) K/mm3 [place] # (Auto) 0.42 H (0.24-0.36) K/mm3 Eos # (Auto) 0.04 (0.04-0.36) K/mm3 Baso # (Auto) 0.03 (0.01-0.08) K/mm3 Sodium 143 (136-145) mEq/L Potassium 4.0 (3.5-5.1) mEq/L Chloride 105 (98-107) mEq/L Carbon Dioxide 23 (21-32) mEq/L Anion Gap 19.0 H (5-15) BUN 8 (7-18) mg/dL Creatinine 0.9 (0.55-1.02) mg/dL Est Cr Clr Drug Dosing 65.80 mL/min Estimated GFR (MDRD) > 60 (>60) mL/min BUN/Creatinine Ratio 8.9 L (14-18) Glucose 97 (74-106) mg/dL POC Glucose 79 (70-105) mg/dL Calcium 9.4 (8.5-10.1) mg/dL Total Bilirubin 0.7 (0.2-1.0) mg/dL AST 60 H (15-37) U/L ALT 69 H (14-59) U/L Alkaline Phosphatase 114 (46-116) U/L Troponin I (0.00-0.056) ng/mL Total Protein 7.7 (6.4-8.2) g/dl Albumin 4.0 (3.4-5.0) g/dl Globulin 3.7 gm/dL Albumin/Globulin Ratio 1.1 (1-2) Lipase 142 (73-393) U/L Urine Color (Yellow) Urine Appearance (Clear) Urine pH (5.0-8.0) Ur Specific [place] (1.005-1.030) Urine Protein (Negative) Urine Glucose (UA) (Negative) Urine Ketones (Negative) Urine Occult Blood (Negative) Urine Nitrite (Negative) Urine Bilirubin (Negative) Urine Urobilinogen (0.2-1.0) Ur Leukocyte Esterase (Negative) Urine RBC (0-5) /hpf Urine WBC (0-5) /hpf Ur Epithelial Cells (0-5) /hpf Urine Bacteria (FEW) /hpf Urine Mucus (FEW) /hpf Urine Opiates Screen (NEGATIVE) Ur Buprenorphine Scrn (NEGATIVE) Ur Oxycodone Screen (NEGATIVE) Urine Methadone Screen (NEGATIVE) Ur Propoxyphene Screen (NEGATIVE) Ur Barbiturates Screen (NEGATIVE) Ur Tricyclics Screen (NEGATIVE) Ur Phencyclidine Scrn (NEGATIVE) Ur Amphetamine Screen (NEGATIVE) U Methamphetamines Scrn (NEGATIVE) U Benzodiazepines Scrn (NEGATIVE) U Cocaine Metab Screen (NEGATIVE) U Marijuana (THC) Screen (NEGATIVE) 01/11/17 01/11/17 01/11/17 Range/Units 13:00 13:45 13:45 WBC (3.98-10.04) K/mm3 RBC (3.98-5.22) M/mm3 Hgb (11.2-15.7) gm/L Hct (34.1-44.9) % MCV (79.4-94.8) fl MCH (25.6-32.2) pg MCHC (32.2-35.5) g/dl RDW Std Deviation (36.4-46.3) fL Plt Count (182-369) K/mm3 MPV (9.4-12.3) fl Neut % (Auto) (34.0-71.1) % Lymph % (Auto) (19.3-51.7) % [place] % (Auto) (4.7-12.5) % Eos % (Auto) (0.7-5.8) Baso % (Auto) (0.1-1.2) % Neut # (Auto) (1.56-6.13) K/mm3 Lymph # (Auto) (1.18-3.74) K/mm3 [place] # (Auto) (0.24-0.36) K/mm3 Eos # (Auto) (0.04-0.36) K/mm3 Baso # (Auto) (0.01-0.08) K/mm3 Sodium (136-145) mEq/L Potassium (3.5-5.1) mEq/L Chloride (98-107) mEq/L Carbon Dioxide (21-32) mEq/L Anion Gap (5-15) BUN (7-18) mg/dL Creatinine (0.55-1.02) mg/dL Est Cr Clr Drug Dosing mL/min Estimated GFR (MDRD) (>60) mL/min BUN/Creatinine Ratio (14-18) Glucose (74-106) mg/dL POC Glucose (70-105) mg/dL Calcium (8.5-10.1) mg/dL Total Bilirubin (0.2-1.0) mg/dL AST (15-37) U/L ALT (14-59) U/L Alkaline Phosphatase (46-116) U/L Troponin I < 0.017 (0.00-0.056) ng/mL Total Protein (6.4-8.2) g/dl Albumin (3.4-5.0) g/dl Globulin gm/dL Albumin/Globulin Ratio (1-2) Lipase (73-393) U/L Urine Color Yellow (Yellow) Urine Appearance Clear (Clear) Urine pH 6.0 (5.0-8.0) Ur Specific [place] 1.025 (1.005-1.030) Urine Protein Trace H (Negative) Urine Glucose (UA) Negative (Negative) Urine Ketones 1+ H (Negative) Urine Occult Blood Trace-intact H (Negative) Urine Nitrite Negative (Negative) Urine Bilirubin Negative (Negative) Urine Urobilinogen 0.2 (0.2-1.0) Ur Leukocyte Esterase Negative (Negative) Urine RBC 0-5 (0-5) /hpf Urine WBC 5-10 H (0-5) /hpf Ur Epithelial Cells 10-20 H (0-5) /hpf Urine Bacteria Few (FEW) /hpf Urine Mucus Few (FEW) /hpf Urine Opiates Screen Negative (NEGATIVE) Ur Buprenorphine Scrn Negative (NEGATIVE) Ur Oxycodone Screen Negative (NEGATIVE) Urine Methadone Screen Negative (NEGATIVE) Ur Propoxyphene Screen Negative (NEGATIVE) Ur Barbiturates Screen Negative (NEGATIVE) Ur Tricyclics Screen Negative (NEGATIVE) Ur Phencyclidine Scrn Negative (NEGATIVE) Ur Amphetamine Screen Negative (NEGATIVE) U Methamphetamines Scrn Negative (NEGATIVE) U Benzodiazepines Scrn Presumptive positive H (NEGATIVE) U Cocaine Metab Screen Negative (NEGATIVE) U Marijuana (THC) Screen Negative (NEGATIVE) 01/11/17 Range/Units 15:10 WBC (3.98-10.04) K/mm3 RBC (3.98-5.22) M/mm3 Hgb (11.2-15.7) gm/L Hct (34.1-44.9) % MCV (79.4-94.8) fl MCH (25.6-32.2) pg MCHC (32.2-35.5) g/dl RDW Std Deviation (36.4-46.3) fL Plt Count (182-369) K/mm3 MPV (9.4-12.3) fl Neut % (Auto) (34.0-71.1) % Lymph % (Auto) (19.3-51.7) % [place] % (Auto) (4.7-12.5) % Eos % (Auto) (0.7-5.8) Baso % (Auto) (0.1-1.2) % Neut # (Auto) (1.56-6.13) K/mm3 Lymph # (Auto) (1.18-3.74) K/mm3 [place] # (Auto) (0.24-0.36) K/mm3 Eos # (Auto) (0.04-0.36) K/mm3 Baso # (Auto) (0.01-0.08) K/mm3 Sodium (136-145) mEq/L Potassium (3.5-5.1) mEq/L Chloride (98-107) mEq/L Carbon Dioxide (21-32) mEq/L Anion Gap (5-15) BUN (7-18) mg/dL Creatinine (0.55-1.02) mg/dL Est Cr Clr Drug Dosing mL/min Estimated GFR (MDRD) (>60) mL/min BUN/Creatinine Ratio (14-18) Glucose (74-106) mg/dL POC Glucose (70-105) mg/dL Calcium (8.5-10.1) mg/dL Total Bilirubin (0.2-1.0) mg/dL AST (15-37) U/L ALT (14-59) U/L Alkaline Phosphatase (46-116) U/L Troponin I < 0.017 (0.00-0.056) ng/mL Total Protein (6.4-8.2) g/dl Albumin (3.4-5.0) g/dl Globulin gm/dL Albumin/Globulin Ratio (1-2) Lipase (73-393) U/L Urine Color (Yellow) Urine Appearance (Clear) Urine pH (5.0-8.0) Ur Specific [place] (1.005-1.030) Urine Protein (Negative) Urine Glucose (UA) (Negative) Urine Ketones (Negative) Urine Occult Blood (Negative) Urine Nitrite (Negative) Urine Bilirubin (Negative) Urine Urobilinogen (0.2-1.0) Ur Leukocyte Esterase (Negative) Urine RBC (0-5) /hpf Urine WBC (0-5) /hpf Ur Epithelial Cells (0-5) /hpf Urine Bacteria (FEW) /hpf Urine Mucus (FEW) /hpf Urine Opiates Screen (NEGATIVE) Ur Buprenorphine Scrn (NEGATIVE) Ur Oxycodone Screen (NEGATIVE) Urine Methadone Screen (NEGATIVE) Ur Propoxyphene Screen (NEGATIVE) Ur Barbiturates Screen (NEGATIVE) Ur Tricyclics Screen (NEGATIVE) Ur Phencyclidine Scrn (NEGATIVE) Ur Amphetamine Screen (NEGATIVE) U Methamphetamines Scrn (NEGATIVE) U Benzodiazepines Scrn (NEGATIVE) U Cocaine Metab Screen (NEGATIVE) U Marijuana (THC) Screen (NEGATIVE) Meds: Medications Discontinued Medications Generic Name Dose Route Start Last Admin Trade Name Freq PRN Reason Stop Dose Admin Acetaminophen 650 mg 01/11/17 13:25 01/11/17 13:38 Tylenol PO 01/11/17 13:26 650 mg NOW ONE Administration Aspirin 324 mg 01/11/17 11:57 01/11/17 12:18 Aspirin PO 01/11/17 11:58 324 mg ONETIME ONE Administration Al Hydroxide/Mg Hydroxide 30 0 ml 01/11/17 11:57 01/11/17 12:18 ml/ Lidocaine HCl 15 ml PO 01/11/17 11:58 45 ml ONETIME ONE Administration Lorazepam 1 mg 01/11/17 11:56 01/11/17 12:22 Ativan IM 01/11/17 11:57 1 mg ONETIME ONE Administration Lorazepam 1 mg 01/11/17 13:25 01/11/17 13:39 Ativan PO 01/11/17 13:26 1 mg ONETIME ONE Administration Ondansetron HCl 4 mg 01/11/17 11:56 01/11/17 12:18 Zofran Odt PO 01/11/17 11:57 4 mg ONETIME ONE Administration Promethazine HCl 25 mg 01/11/17 13:25 01/11/17 13:39 Phenergan IM 01/11/17 13:26 25 mg ONETIME ONE Administration - Re-Assessments/Exams Free Text/Narrative Re-Assessment/Exam: Unable to establish IV due to poor IV veins. Ordered aspirin 324 mg by mouth, Ativan 1 mg IM, GI cocktail by mouth, and Zofran 4 mg by mouth. Initial labs and studies include CBC, chem 14, urine drug tox, lipase, troponin, UA, rapid bedside glucose, two-view of the abdomen with chest x-ray one view. EKG ordered as well. EKG sinus rhythm at a rate is [address] changes noted. Labs reviewed: White blood cell count 5.88, hemoglobin 14.9, platelet count 328 , sodium 143, potassium 4.0, AG 19.0, creatinine 0.9, AST 60 ALT 69, and lipase 142. Troponin pending. Chest x-ray and abdominal x-rays did not reveal any acute findings. 1325 Reassessment, patient continues to have some mild nausea and left upper quadrant/lower quadrant chest discomfort. Pain is improving. She appears to be very anxious still. Unable to provide a UA sample yet. Unable to establish IV due to poor veins. Order Ativan 1 mg by mouth and also Phenergan 25 mg IM. For pain Tylenol 650 mg by mouth. I told the patient she needs to provide a UA sample before any pain medications will be ordered. UA positive for protein, ketones 1+, occult blood trace, urine diureses 5-10, urine epithelial cells 10-20. Urine drug tox positive for benzodiazepines. Negative for others. 01/11/17 16:02 Reassessment, patient's feeling better. I spoke to patient's PCP no narcotic medications will be discharged due to patient's addiction history. Discharge instructions as documented. Departure - Departure Time of Disposition: 16:17 Disposition: Home, Self-Care 01 Condition: Good Clinical Impression: Atypical chest pain, Anxiety and depression Instructions: Chest Wall Pain, [id number] Referrals: Candida Limon PA [Physician Manager [facility] Pharm[facility]] - Forms: ED Department Discharge, ED Return to Work/School Form Additional Instructions: As discussed etiology of left-sided chest discomfort muscle skeletal in nature. Treatment is symptomatic care including Tylenol as needed for discomfort. Refrain from any activities that cause worsening pain. In addition you were quite anxious with admission to the ED. I know they have been modifying your antidepressant/anxiety medications. Continue taking all your prescriptions as prescribed. See your PCP for reevaluation of left-sided chest discomfort and anxiety/depression. No driving this evening since receiving a sedative medication. Return to ED for any new or worsening symptoms.
[2017-01-11] MEDS ORDERED: LORazepam 2 MG/ML MDV IM ONE (11:56)
[2017-01-11] MEDS ORDERED: Ondansetron 4 MG Tab.DIS PO ONE (11:56)
[2017-01-11] MEDS ORDERED: Aspirin 81 MG Tab.Chew PO ONE (11:57)
[2017-01-11] MEDS ORDERED: Alum Hydrox/Mag Hydrox/Simeth 30 ML, Lidocaine 2% 15 ML PO ONE ×2 (11:57)
[2017-01-11] MEDS ORDERED: Acetaminophen 325 MG Tab PO ONE (13:25)
[2017-01-11] MEDS ORDERED: LORazepam 1 MG Tab PO ONE (13:25)
[2017-01-11] MEDS ORDERED: Promethazine 25 MG/ML SDV IM ONE (13:25)
--- NOTE | 2017-01-11 14:05 | CR ---
Abdominal series: Supine and upright views of the abdomen were obtained as well as frontal view of the chest. Comparison: Prior chest x-ray of 09/15/16. Heart size and mediastinum are normal. Slight scarring is seen within the left upper chest. No acute infiltrates are seen. Bony structures are within normal limits for the patient's age. Electro-stimulating device overlying the sacrum is seen. Bowel gas pattern is normal. No free air is seen. Calcification within the right pelvis have the appearance of phlebolith. Impression: 1. Incidental findings. Nothing acute is seen. Diagnostic code #2
== END 2017-01-11 16:59 | disposition home or self-care (01) ==
LOC: JD.ED 11:25
DX: R07.89 Other chest pain (principal); F41.8 Other specified anxiety disorders; K21.9 Gastro-esophageal reflux disease without esophagitis; E78.00 Pure hypercholesterolemia, unspecified; I10 Essential (primary) hypertension; G43.909 Migraine, unspecified, not intractable, without status migrainosus; F17.210 Nicotine dependence, cigarettes, uncomplicated; Z90.49 Acquired absence of other specified parts of digestive tract; Z90.710 Acquired absence of both cervix and uterus; Z88.6 Allergy status to analgesic agent; Z88.5 Allergy status to narcotic agent; Z88.2 Allergy status to sulfonamides; Z88.8 Allergy status to other drugs, medicaments and biological substances
CPT/HCPCS: 36415; 74022; 80053; 80306; 81001; 82962; 83690; 84484; 85025; 93005; 96372; 99285; A9270; J2060; J2550

== ENCOUNTER 2017-02-08 06:39 | Emergency (ER) | payer MEDICAID, OTHER ==
[2017-02-08 06:52] VITALS: BP 149/103
--- NOTE | 2017-02-08 08:25 | EDM.PDOC ---
ED HPI GENERAL MEDICAL PROBLEM - General Chief Complaint: Upper Extremity Injury/Pain Stated Complaint: R WRIST INJURY/FALL YESTERDAY Time Seen by Provider: 02/08/17 07:03 Source of Information: Reports: Patient, RN Notes Reviewed History Limitations: Reports: No Limitations - History of Present Illness INITIAL COMMENTS - FREE TEXT/NARRATIVE: The patient states that she slipped on a door mat and fell yesterday morning around 10:00, landing on her right wrist. She complains of pain primarily over the distal radius, and somewhat over the distal ulna. 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 She denies prior right wrist injury. She is otherwise uninjured. The patient's PCP is Dr. Brittany Jamison. Right Wrist Pain Score (Numeric/FACES): 8 - Related Data Allergies Allergy/AdvReac Type Severity Reaction Status Date / Time ibuprofen Allergy Itching Verified 02/08/17 06:52 ketorolac tromethamine Allergy Rash Verified 02/08/17 06:52 [From Toradol] naproxen Allergy Itching Verified 02/08/17 06:52 Sulfa (Sulfonamide Allergy Rash Verified 02/08/17 06:52 Antibiotics) sumatriptan [From Imitrex] Allergy Anaphylactic Verified 02/08/17 06:52 Shock sumatriptan succinate Allergy Anaphylactic Verified 02/08/17 06:52 [From Imitrex] Shock tramadol Allergy Rash Verified 02/08/17 06:52 diphenhydramine HCl AdvReac Headache Verified 02/08/17 06:52 [From Benadryl] MSG Allergy Anxiety Uncoded 02/08/17 06:52 Home Meds: Home Meds Venlafaxine HCl [Venlafaxine ER] 150 mg PO DAILY 10/10/16 [History] Past Medical History HEENT History: Reports: Impaired Vision Other HEENT History: wears corrective lenses Cardiovascular History: Reports: High Cholesterol (untreated) Respiratory History: Reports: Other (See Below) (Restrictive lung disease - per the patient, not documented) Gastrointestinal History: Reports: Gastritis (untreated), GERD (untreated), Other (See Below) (Esophageal stricture) Genitourinary History: Reports: Urinary Incontinence 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: Musculoskeletal History: Reports: Back Pain, Chronic Psychiatric History: Reports: Addiction, Anxiety, Depression, Suicide Attempt, Other (See Below) (Personality disorder) Endocrine/Metabolic History: Reports: Obesity/BMI 30+ - Infectious Disease History Infectious Disease History: Reports: Chicken Pox - Past Surgical History GI Surgical History: Reports: Appendectomy, Cholecystectomy, EGD Female Surgical History: Reports: Hysterectomy, Salpingo-Oophorectomy, Tubal Ligation, Other (See Below) (InterStim implant RLQ for urinary incontinence) Social & Family History - Family History Family Medical History: Noncontributory Cardiac: Reports: Bypass, CAD, Heart Failure - Tobacco Use Smoking Status *Q: Current Every Day Smoker Years of Tobacco use: 9 Packs/Tins Daily: 0.1 Second Hand Smoke Exposure: Yes - Caffeine Use Caffeine Use: Reports: Coffee, Soda - Alcohol Use Alcohol Use History: Yes Days Per Week of Alcohol Use: 7 Number of Drinks Per Day: 3 Total Drinks Per Week: 21 Alcohol Use Frequency: Daily - Recreational Drug Use Recreational Drug Use: Yes Drug Use in Last 12 Months: Yes Recreational Drug Type: Reports: Fentanyl, Marijuana/Hashish, Methamphetamine - Living Situation & Occupation Living situation: Reports: , Other (with ex-) Occupation: Employed ([employer]) Review of Systems - Review of Systems Review Of Systems: See Below Constitutional: Reports: No Symptoms Eyes: Reports: No Symptoms Ears: Reports: No Symptoms Nose: Reports: No Symptoms Mouth/Throat: Reports: No Symptoms Respiratory: Reports: No Symptoms Cardiovascular: Reports: No Symptoms GI/Abdominal: Reports: No Symptoms Genitourinary: Reports: No Symptoms Musculoskeletal: Reports: No Symptoms Skin: Reports: No Symptoms Neurological: Reports: No Symptoms Psychiatric: Reports: No Symptoms ED EXAM, GENERAL - Physical Exam Exam: See Below Exam Limited By: No Limitations General Appearance: Alert, WD/WN, No Apparent Distress Extremities: Other (Mild swelling to the right wrist, when compared to the left. The patient reports tenderness to the areas of swelling. No other visible abnormalities, such as erythema, ecchymosis, or abrasion. Neurovascular status of the right upper extremity is intact.) Course - Vital Signs Last Recorded V/S: Last Vital Signs Temp 36.1 C 02/08/17 06:49 Pulse 105 H 02/08/17 06:49 Resp 16 02/08/17 06:49 BP 149/103 H 02/08/17 06:49 Pulse Ox 97 02/08/17 06:49 - Re-Assessments/Exams Free Text/Narrative Re-Assessment/Exam: 02/08/17 08:25 4-view radiographs of the right wrist appear to be normal. No fracture or dislocation identified. Formal read per the Radiologist pending. 02/08/17 08:27 X-ray results discussed with the patient and her ex-. The patient appears to have contused her right wrist, without bony injury. I'm recommending rest, ice, elevation, and Tylenol/ibuprofen as needed. Departure - Departure Time of Disposition: 08:28 Disposition: Home, Self-Care 01 Condition: Good Clinical Impression: Contusion of right wrist - Discharge Information Instructions: Contusion, [id number] Referrals: Brittany Jamison MD [Primary Care Provider] - Forms: ED Department Discharge Additional Instructions: You were seen in the emergency room after slipping, falling, and injuring your right wrist. Workup in the ER included x-rays of your right wrist, which are normal. No broken bones or dislocations were found. The pain in your right wrist is MOST LIKELY due to a contusion (bruise) of the wrist. We recommend you rest your wrist, using it only as tolerated. We recommend that you apply an ice pack to the painful areas for the next 24 hours. Elevate your right wrist is much as possible for the next 24 hours, to help minimize swelling. Take [id number] Tylenol or ibuprofen as needed for discomfort. Follow-up with your PCP, Dr. Jamison, as needed. If any other problems, please do not hesitate to return to the ER.
--- NOTE | 2017-02-08 08:30 | CR ---
Right wrist: Four views of the right wrist were obtained. Comparison: No prior study. Joint spaces are preserved. No fracture, dislocation or other bony abnormality is seen. Impression: 1. No abnormality is identified on right wrist exam. Diagnostic code #1
== END 2017-02-08 08:30 | disposition home or self-care (01) ==
LOC: JD.ED 06:39
DX: S60.211A Contusion of right wrist, initial encounter (principal); F17.210 Nicotine dependence, cigarettes, uncomplicated; Z88.6 Allergy status to analgesic agent; Z88.2 Allergy status to sulfonamides; Z88.5 Allergy status to narcotic agent; Z79.899 Other long term (current) drug therapy; W01.0XXA Fall on same level from slipping, tripping and stumbling without subsequent striking against object, initial encounter
CPT/HCPCS: 73110-26-RT; 73110-RT; 99283

== ENCOUNTER 2017-02-27 12:52 | Inpatient (IN) | payer MEDICAID ==
[2017-02-27] MEDS ORDERED: Sodium Chloride 0.9% 1,000 ML IV SCH (13:15)
[2017-02-27] MEDS ORDERED: Sodium Chloride 0.9% 10 ML Syringe FLUSH PRN (13:15)
[2017-02-27] MEDS ORDERED: Ondansetron 4 MG/2 ML SDV IVPUSH ONE (13:21)
--- NOTE | 2017-02-27 14:49 | EDM.PDOCBH ---
ED HPI GENERAL MEDICAL PROBLEM - General Chief Complaint: Behavioral/Psych Stated Complaint: [facility] Time Seen by Provider: 02/27/17 13:05 Source of Information: Reports: Patient, EMS History Limitations: Reports: Intoxication - History of Present Illness INITIAL COMMENTS - FREE TEXT/NARRATIVE: The patient is brought to us by [facility]. She took 30 aspirin 325mg and 30 naprosyn 500mg pills in an attempt to kill herself. [facility] and he is moving to [place] and he said it was time to get out. She had been drinking today also. She denies taking any street or illegal drugs. She has been depressed for a few days after she found out he wants her out. She did not take anything else. She has some abdominal pain and nausea. She has no fever, chills, cough, chest pain or shortness of breath. She has no dysuria or diarrhea. She took the pills at 11:50am. Onset: Gradual Duration: Hour(s): Location: Reports: Abdomen Quality: Reports: Ache Severity: Mild Improves with: Reports: None Worsens with: Reports: None Associated Symptoms: Reports: Nausea/Vomiting. Denies: Chest Pain, Cough, Fever /Chills, Headaches, Shortness of Breath Chest Pain Score (Numeric/FACES): 10 - Related Data Allergies Allergy/AdvReac Type Severity Reaction Status Date / Time ibuprofen Allergy Itching Verified 02/27/17 13:07 ketorolac tromethamine Allergy Rash Verified 02/27/17 13:07 [From Toradol] naproxen Allergy Itching Verified 02/27/17 13:07 Sulfa (Sulfonamide Allergy Rash Verified 02/27/17 13:07 Antibiotics) sumatriptan [From Imitrex] Allergy Anaphylactic Verified 02/27/17 13:07 Shock sumatriptan succinate Allergy Anaphylactic Verified 02/27/17 13:07 [From Imitrex] Shock tramadol Allergy Rash Verified 02/27/17 13:07 diphenhydramine HCl AdvReac Headache Verified 02/27/17 13:07 [From Benadryl] MSG Allergy Anxiety Uncoded 02/27/17 13:07 Home Meds: Home Meds Venlafaxine HCl [Venlafaxine ER] 150 mg PO DAILY 10/10/16 [History] Past Medical History HEENT History: Reports: Impaired Vision Other HEENT History: wears corrective lenses Cardiovascular History: Reports: High Cholesterol Respiratory History: Reports: Other (See Below) Other Respiratory History: restrictive airway Gastrointestinal History: Reports: Gastritis, GERD Other Gastrointestinal History: esophageal stricture, abdominal pain lowere, Genitourinary History: Reports: Urinary Incontinence Other Genitourinary History: implantable device interstim 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: Musculoskeletal History: Reports: Back Pain, Chronic Neurological History: Reports: CVA, Migraines, Seizure, Other (See Below) Other Neuro History: patient reports "nervous tics" Psychiatric History: Reports: Addiction, Anxiety, Depression, Suicide Attempt Other Psychiatric History: drug overdose, personality disorder, alcohol withdrawal Endocrine/Metabolic History: Reports: Obesity/BMI 30+ Dermatologic History: Reports: Other (See Below) Other Dermatologic History: skin lesion - Infectious Disease History Infectious Disease History: Reports: Chicken Pox - Past Surgical History GI Surgical History: Reports: Appendectomy, Cholecystectomy, EGD Female Surgical History: Reports: Hysterectomy, Salpingo-Oophorectomy, Tubal Ligation, Other (See Below) Other Female Surgeries/Procedures: bladder stimulator Social & Family History - Family History Family Medical History: Noncontributory Cardiac: Reports: Bypass, CAD, Heart Failure - Tobacco Use Smoking Status *Q: Current Every Day Smoker Years of Tobacco use: 7 Packs/Tins Daily: 0.1 Used Tobacco, but Quit: No Month Tobacco Last Used: 6 Second Hand Smoke Exposure: Yes - Caffeine Use Caffeine Use: Reports: Coffee - Alcohol Use Days Per Week of Alcohol Use: 7 Number of Drinks Per Day: 5 Total Drinks Per Week: 35 - Recreational Drug Use Recreational Drug Use: No Drug Use in Last 12 Months: Yes Recreational Drug Type: Reports: Fentanyl, Marijuana/Hashish, Methamphetamine Recreational Drug Use Frequency: Not Used In Over 5 Months - Living Situation & Occupation Living situation: Reports: , Other (with ex-) Occupation: Employed ([employer] [facility] [employer] [facility] GENERAL - Review of Systems Review Of Systems: See Below Constitutional: Reports: No Symptoms HEENT: Reports: No Symptoms Respiratory: Reports: No Symptoms Cardiovascular: Reports: No Symptoms Endocrine: Reports: No Symptoms GI/Abdominal: Reports: Abdominal Pain, Nausea. Denies: Diarrhea, Vomiting : Reports: No Symptoms Musculoskeletal: Reports: No Symptoms ED EXAM, BEHAVIORAL HEALTH - Physical Exam Exam: See Below Exam Limited By: No Limitations General Appearance: Alert, No Apparent Distress Ears: Normal External Exam Nose: Normal Inspection Head: Atraumatic, Normocephalic Neck: Normal Inspection Respiratory/Chest: No Respiratory Distress, Lungs Clear, Normal Breath Sounds Cardiovascular: Regular Rate, Rhythm, No Edema, No Murmur GI/Abdominal: Soft, No Organomegaly, No Mass, Tender (Mild tenderness to palaption) Extremities: Normal Inspection EKG INTERPRETATION EKG Date: 02/27/17 Time: 14:15 Rhythm: NSR Rate (Beats/Min): 84 [place]: Normal P-Wave: Present QRS: Normal ST-T: Normal QT: Normal COURSE, BEHAVIORAL HEALTH COMP - Course Vital Signs: Last Vital Signs Temp 97.7 F 02/27/17 12:58 Pulse 91 02/27/17 12:58 Resp 22 H 02/27/17 12:58 BP 120/108 H 02/27/17 12:58 Pulse Ox 95 02/27/17 12:58 Orders, Labs, Meds: Active Orders 24 hr Category Date Time Status Cardiac Monitoring [RC] . DIRECTED Care 02/27/17 13:15 Active EKG Documentation Completion [RC] STAT Care 02/27/17 13:16 Active Peripheral IV Care [RC] . DIRECTED Care 02/27/17 13:16 Active Sodium Chloride 0.9% [Normal Saline] 1,000 ml Med 02/27/17 13:15 Active IV ASDIRECTED Sodium Chloride 0.9% [Saline Flush] Med 02/27/17 13:15 Active 10 ml FLUSH ASDIRECTED PRN Peripheral IV Insertion Adult [OM.PC] Stat Oth 02/27/17 13:15 Ordered Medication Orders Sodium Chloride (Normal Saline) 1,000 mls @ 125 mls/hr IV ASDIRECTED HÉCTOR Last Admin: 02/27/17 14:27 Dose: 125 mls/hr Sodium Chloride (Saline Flush) 10 ml FLUSH ASDIRECTED PRN PRN Reason: Keep Vein Open Laboratory Tests 02/27/17 02/27/17 02/27/17 Range/Units 14:00 14:00 14:10 WBC 6.94 (3.98-10.04) K/mm3 RBC 4.91 (3.98-5.22) M/mm3 Hgb 16.0 H (11.2-15.7) gm/L Hct 48.1 H (34.1-44.9) % MCV 98.0 H (79.4-94.8) fl MCH 32.6 H (25.6-32.2) pg MCHC 33.3 (32.2-35.5) g/dl RDW Std Deviation 44.2 (36.4-46.3) fL Plt Count 329 (182-369) K/mm3 MPV 10.4 (9.4-12.3) fl Neut % (Auto) 60.9 (34.0-71.1) % Lymph % (Auto) 27.5 (19.3-51.7) % [place] % (Auto) 4.8 (4.7-12.5) % Eos % (Auto) 6.1 H (0.7-5.8) Baso % (Auto) 0.6 (0.1-1.2) % Neut # (Auto) 4.23 (1.56-6.13) K/mm3 Lymph # (Auto) 1.91 (1.18-3.74) K/mm3 [place] # (Auto) 0.33 (0.24-0.36) K/mm3 Eos # (Auto) 0.42 H (0.04-0.36) K/mm3 Baso # (Auto) 0.04 (0.01-0.08) K/mm3 Sodium (136-145) mEq/L Potassium (3.5-5.1) mEq/L Chloride (98-107) mEq/L Carbon Dioxide (21-32) mEq/L Anion Gap (5-15) BUN (7-18) mg/dL Creatinine (0.55-1.02) mg/dL Est Cr Clr Drug Dosing mL/min Estimated GFR (MDRD) (>60) mL/min BUN/Creatinine Ratio (14-18) Glucose (74-106) mg/dL Calcium (8.5-10.1) mg/dL Total Bilirubin (0.2-1.0) mg/dL AST (15-37) U/L ALT (14-59) U/L Alkaline Phosphatase (46-116) U/L Total Protein (6.4-8.2) g/dl Albumin (3.4-5.0) g/dl Globulin gm/dL Albumin/Globulin Ratio (1-2) Urine Color Light yellow (Yellow) Urine Appearance Clear (Clear) Urine pH 6.5 (5.0-8.0) Ur Specific [place] 1.010 (1.005-1.030) Urine Protein Negative (Negative) Urine Glucose (UA) Negative (Negative) Urine Ketones Negative (Negative) Urine Occult Blood Negative (Negative) Urine Nitrite Negative (Negative) Urine Bilirubin Negative (Negative) Urine Urobilinogen 0.2 (0.2-1.0) Ur Leukocyte Esterase Negative (Negative) Urine RBC Not seen (0-5) /hpf Urine WBC 0-5 (0-5) /hpf Ur Epithelial Cells 10-20 H (0-5) /hpf Urine Bacteria Not seen (FEW) /hpf Urine Mucus Not seen (FEW) /hpf Salicylates (2.8-20) mg/dL Urine Opiates Screen Negative (NEGATIVE) Ur Buprenorphine Scrn Negative (NEGATIVE) Ur Oxycodone Screen Negative (NEGATIVE) Urine Methadone Screen Negative (NEGATIVE) Ur Propoxyphene Screen Negative (NEGATIVE) Acetaminophen (10-30) ug/mL Ur Barbiturates Screen Negative (NEGATIVE) Ur Tricyclics Screen Negative (NEGATIVE) Ur Phencyclidine Scrn Negative (NEGATIVE) Ur Amphetamine Screen Negative (NEGATIVE) U Methamphetamines Scrn Negative (NEGATIVE) U Benzodiazepines Scrn Negative (NEGATIVE) U Cocaine Metab Screen Negative (NEGATIVE) U Marijuana (THC) Screen Negative (NEGATIVE) Ethyl Alcohol (0.00) gm% 02/27/17 02/27/17 Range/Units 14:10 14:52 WBC (3.98-10.04) K/mm3 RBC (3.98-5.22) M/mm3 Hgb (11.2-15.7) gm/L Hct (34.1-44.9) % MCV (79.4-94.8) fl MCH (25.6-32.2) pg MCHC (32.2-35.5) g/dl RDW Std Deviation (36.4-46.3) fL Plt Count (182-369) K/mm3 MPV (9.4-12.3) fl Neut % (Auto) (34.0-71.1) % Lymph % (Auto) (19.3-51.7) % [place] % (Auto) (4.7-12.5) % Eos % (Auto) (0.7-5.8) Baso % (Auto) (0.1-1.2) % Neut # (Auto) (1.56-6.13) K/mm3 Lymph # (Auto) (1.18-3.74) K/mm3 [place] # (Auto) (0.24-0.36) K/mm3 Eos # (Auto) (0.04-0.36) K/mm3 Baso # (Auto) (0.01-0.08) K/mm3 Sodium 146 H (136-145) mEq/L Potassium 4.0 (3.5-5.1) mEq/L Chloride 105 (98-107) mEq/L Carbon Dioxide 25 (21-32) mEq/L Anion Gap 20.0 H (5-15) BUN 10 (7-18) mg/dL Creatinine 0.7 (0.55-1.02) mg/dL Est Cr Clr Drug Dosing 84.59 mL/min Estimated GFR (MDRD) > 60 (>60) mL/min BUN/Creatinine Ratio 14.3 (14-18) Glucose 87 (74-106) mg/dL Calcium 9.9 (8.5-10.1) mg/dL Total Bilirubin 0.4 (0.2-1.0) mg/dL AST 51 H (15-37) U/L ALT 87 H (14-59) U/L Alkaline Phosphatase 146 H (46-116) U/L Total Protein 7.9 (6.4-8.2) g/dl Albumin 4.9 (3.4-5.0) g/dl Globulin 3.0 gm/dL Albumin/Globulin Ratio 1.6 (1-2) Urine Color (Yellow) Urine Appearance (Clear) Urine pH (5.0-8.0) Ur Specific [place] (1.005-1.030) Urine Protein (Negative) Urine Glucose (UA) (Negative) Urine Ketones (Negative) Urine Occult Blood (Negative) Urine Nitrite (Negative) Urine Bilirubin (Negative) Urine Urobilinogen (0.2-1.0) Ur Leukocyte Esterase (Negative) Urine RBC (0-5) /hpf Urine WBC (0-5) /hpf Ur Epithelial Cells (0-5) /hpf Urine Bacteria (FEW) /hpf Urine Mucus (FEW) /hpf Salicylates 9.1 (2.8-20) mg/dL Urine Opiates Screen (NEGATIVE) Ur Buprenorphine Scrn (NEGATIVE) Ur Oxycodone Screen (NEGATIVE) Urine Methadone Screen (NEGATIVE) Ur Propoxyphene Screen (NEGATIVE) Acetaminophen 0 L (10-30) ug/mL Ur Barbiturates Screen (NEGATIVE) Ur Tricyclics Screen (NEGATIVE) Ur Phencyclidine Scrn (NEGATIVE) Ur Amphetamine Screen (NEGATIVE) U Methamphetamines Scrn (NEGATIVE) U Benzodiazepines Scrn (NEGATIVE) U Cocaine Metab Screen (NEGATIVE) U Marijuana (THC) Screen (NEGATIVE) Ethyl Alcohol 0.22 (0.00) gm% Medications Generic Name Dose Route Start Last Admin Trade Name Freq PRN Reason Stop Dose Admin Sodium Chloride 1,000 mls @ 125 mls/hr 02/27/17 13:15 02/27/17 14:27 Normal Saline IV 125 mls/hr ASDIRECTED HÉCTOR Administration Sodium Chloride 10 ml 02/27/17 13:15 Saline Flush FLUSH ASDIRECTED PRN Keep Vein Open Discontinued Medications Generic Name Dose Route Start Last Admin Trade Name Freq PRN Reason Stop Dose Admin Ondansetron HCl 4 mg 02/27/17 13:21 02/27/17 14:17 Zofran IVPUSH 02/27/17 13:22 4 mg ONETIME ONE Administration Re-Assessment/Re-Exam: I ordered an IV NS at 125mL/hr, EKG, labs, UDS and zofran 4mg IV. Her EKG shows a NSR with no acute changes. I called poison control. They wanted me to check for aspirin and acetaminophen levels now and at 4 hours. The did not recommend any activated charcoal at this time. They wanted me to do salicylate levels every 3 hours until they start trending down. We can stop when we have 2 consecutive decreased levels. They wanted me to watch for ringing in her ears , fever, mental status changes and increased respiratory rate. She can go into a metabolic acidosis. Both the aspirin and naprosyn can cause GI upset and both can cause kidney injury. Her CBC looks good. Her Na was elevated at 146. Her anion gap was elevated at 20. Her AST was elevated at 51. Her ALT was elevated at 87. Her alk phos was elevated at 146. Her UA shows no UTI. Her salicylated were therapeutic at 9.1. Her acetaminophen was 0. Her ETOH was elevated at 0.22. She will need to be admitted for the salicylate overdose. I talked to Dr Yoo and she agreed to the admission. Departure - Departure Time of Disposition: 15:50 Disposition: Admitted As Inpatient 65 Condition: Serious Clinical Impression: Suicide attempt, Drug abuse, Depressive disorder - Discharge Information Referrals: PCP,Not In Area [Primary Care Provider] - Forms: ED Department Discharge - My Orders Last 24 Hours: My Active Orders 02/27/17 13:15 Cardiac Monitoring [RC] . DIRECTED Sodium Chloride 0.9% [Normal Saline] 1,000 ml IV ASDIRECTED Sodium Chloride 0.9% [Saline Flush] 10 ml FLUSH ASDIRECTED PRN Peripheral IV Insertion Adult [OM.PC] Stat 02/27/17 13:16 EKG Documentation Completion [RC] STAT Peripheral IV Care [RC] . DIRECTED - Assessment/Plan Last 24 Hours: My Active Orders 02/27/17 13:15 Cardiac Monitoring [RC] . DIRECTED Sodium Chloride 0.9% [Normal Saline] 1,000 ml IV ASDIRECTED Sodium Chloride 0.9% [Saline Flush] 10 ml FLUSH ASDIRECTED PRN Peripheral IV Insertion Adult [OM.PC] Stat 02/27/17 13:16 EKG Documentation Completion [RC] STAT Peripheral IV Care [RC] . DIRECTED
[2017-02-27 15:09] LABS: ACETAMINOPHEN 0 ug/mL (10-30)
[2017-02-27] MEDS ORDERED: LORazepam 2 MG/ML MDV IVPUSH ONE (16:35)
--- NOTE | 2017-02-27 16:44 | PCM.HP ---
H&P History of Present Illness - General Date of Service: 02/27/17 Source of Information: Provider History Limitations: Reports: No Limitations - History of Present Illness Initial Comments - Free Text/Narative: 51 year old female well known to the ED at [facility] for multiple presentations often times for alcohol or drug use. On this occasion, she presents after a suicide gesture taking a total of sixty tablets: 30 ASA 325 mg /30 Naprosyn 500 mg. She stated that she was not trying to kill herself but wanted to get her exhusband's attention. She apparently has been living with him, and he reportedly stated it is time for her to get out. The patient reports that he is moving to [place]. She states that the news of his moving has triggered depression. She denies taking illegal substances on this occasion. Onset of Symptoms: Reports: Unknown/Unsure Duration of Symptoms: Reports: Hour(s):, Getting Worse Location: Reports: Generalized Quality: Reports: Same as Previous Episode Severity: Moderate Improves with: Reports: Medication Worsens with: Reports: None Chest Pain Score (Numeric/FACES): 10 Lower Back Pain Score (Numeric/FACES): 9 - Related Data Allergies/Adverse Reactions: Allergies Allergy/AdvReac Type Severity Reaction Status Date / Time ibuprofen Allergy Itching Verified 02/27/17 13:07 ketorolac tromethamine Allergy Rash Verified 02/27/17 13:07 [From Toradol] naproxen Allergy Itching Verified 02/27/17 13:07 Sulfa (Sulfonamide Allergy Rash Verified 02/27/17 13:07 Antibiotics) sumatriptan [From Imitrex] Allergy Anaphylactic Verified 02/27/17 13:07 Shock sumatriptan succinate Allergy Anaphylactic Verified 02/27/17 13:07 [From Imitrex] Shock tramadol Allergy Rash Verified 02/27/17 13:07 diphenhydramine HCl AdvReac Headache Verified 02/27/17 13:07 [From Benadryl] MSG Allergy Anxiety Uncoded 02/27/17 13:07 Home Medications: Home Meds Venlafaxine HCl [Venlafaxine ER] 150 mg PO DAILY 10/10/16 [History] Past Medical History HEENT History: Reports: Impaired Vision Other HEENT History: wears corrective lenses Cardiovascular History: Reports: High Cholesterol Respiratory History: Reports: Other (See Below) Other Respiratory History: restrictive airway Gastrointestinal History: Reports: Gastritis, GERD Other Gastrointestinal History: esophageal stricture, abdominal pain lowere, Genitourinary History: Reports: Urinary Incontinence Other Genitourinary History: implantable device interstim 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: Musculoskeletal History: Reports: Back Pain, Chronic Neurological History: Reports: CVA, Migraines, Seizure, Other (See Below) Other Neuro History: patient reports "nervous tics" Psychiatric History: Reports: Addiction, Anxiety, Depression, Suicide Attempt Other Psychiatric History: drug overdose, personality disorder, alcohol withdrawal Endocrine/Metabolic History: Reports: Obesity/BMI 30+ Dermatologic History: Reports: Other (See Below) Other Dermatologic History: skin lesion - Infectious Disease History Infectious Disease History: Reports: Chicken Pox - Past Surgical History GI Surgical History: Reports: Appendectomy, Cholecystectomy, EGD Female Surgical History: Reports: Hysterectomy, Salpingo-Oophorectomy, Tubal Ligation, Other (See Below) Other Female Surgeries/Procedures: bladder stimulator Social & Family History - Family History Family Medical History: Noncontributory Cardiac: Reports: Bypass, CAD, Heart Failure - Tobacco Use Smoking Status *Q: Current Every Day Smoker Years of Tobacco use: 7 Packs/Tins Daily: 0.1 Used Tobacco, but Quit: No Month Tobacco Last Used: 6 Second Hand Smoke Exposure: Yes - Caffeine Use Caffeine Use: Reports: Coffee - Alcohol Use Days Per Week of Alcohol Use: 7 Number of Drinks Per Day: 5 Total Drinks Per Week: 35 - Recreational Drug Use Recreational Drug Use: No Drug Use in Last 12 Months: Yes Recreational Drug Type: Reports: Fentanyl, Marijuana/Hashish, Methamphetamine Recreational Drug Use Frequency: Not Used In Over 5 Months - Living Situation & Occupation Living situation: Reports: , Other (with ex-) Occupation: Employed ([employer]) H&P Review of Systems - Review of Systems: Review Of Systems: See Below General: Reports: No Symptoms HEENT: Reports: No Symptoms Pulmonary: Reports: No Symptoms Cardiovascular: Reports: No Symptoms Gastrointestinal: Reports: Nausea, Vomiting Genitourinary: Reports: No Symptoms Musculoskeletal: Reports: Back Pain Skin: Reports: No Symptoms Psychiatric: Reports: Depression, Anxiety Neurological: Reports: No Symptoms Hematologic/Lymphatic: Reports: No Symptoms Immunologic: Reports: No Symptoms Exam - Exam Exam: See Below - Vital Signs Vital Signs: Last Vital Signs Temp 36.5 C 02/27/17 12:58 Pulse 91 02/27/17 12:58 Resp 22 H 02/27/17 12:58 BP 120/108 H 02/27/17 12:58 Pulse Ox 95 02/27/17 12:58 Weight: 97.84 kg - Exam Quality Assessment: Supplemental Oxygen, DVT Prophylaxis General: Alert, Oriented, Cooperative HEENT: Conjunctiva Clear, EOMI, Nares Patent, Normal Nasal Septum, Pupils Equal , Pupils Reactive Neck: Supple, Trachea Midline Lungs: Normal Respiratory Effort Cardiovascular: Regular Rate, Regular Rhythm GI/Abdominal Exam: Normal Bowel Sounds, Soft, Non-Tender, No Organomegaly (Female) Exam: Deferred Rectal (Female) Exam: Deferred Back Exam: Normal Inspection Extremities: Normal Inspection, Normal Range of Motion Skin: Warm Neurological: Cranial Nerves Intact Neuro Extensive - Mental Status: Alert, Oriented x3 Neuro Extensive - Motor, Sensory, Reflexes: CN II-XII Intact Psychiatric: Alert, Anxious - Patient Data Result Diagrams: 02/27/17 14:10 02/27/17 14:10 *Q Meaningful Use (ADM) - VTE *Q VTE Criteria *Q: - Stroke *Q Stroke Criteria *Q: - AMI *Q AMI Criteria *Q: - Problem List (1) Depressive disorder SNOMED Code(s): 51789943 ICD Code: F32.9 - MAJOR DEPRESSIVE DISORDER, SINGLE EPISODE, UNSPECIFIED Status: Acute Current Visit: Yes (2) Drug abuse SNOMED Code(s): 02984393 ICD Code: F19.10 - OTHER PSYCHOACTIVE SUBSTANCE ABUSE, UNCOMPLICATED Status : Acute Current Visit: Yes (3) Suicide attempt SNOMED Code(s): 98723955 ICD Code: T14.91XA - SUICIDE ATTEMPT, INITIAL ENCOUNTER Status: Acute Current Visit: Yes (4) Abdominal pain SNOMED Code(s): 49154699 ICD Code: R10.9 - UNSPECIFIED ABDOMINAL PAIN Status: Acute Current Visit : No (5) Abdominal pain of unknown etiology SNOMED Code(s): 003749249 ICD Code: R10.9 - UNSPECIFIED ABDOMINAL PAIN Status: Acute Current Visit : No (6) Alcohol withdrawal syndrome SNOMED Code(s): 590179066 ICD Code: F10.239 - ALCOHOL DEPENDENCE WITH WITHDRAWAL, UNSPECIFIED Status : Acute Current Visit: No Onset Date: 02/14/14 (7) Anxiety and depression SNOMED Code(s): 678985267 ICD Code: F41.8 - OTHER SPECIFIED ANXIETY DISORDERS Status: Acute Current Visit: No (8) Drug overdose - suicide SNOMED Code(s): 708264776 ICD Code: T50.902A - POISONING BY UNSP DRUG/MEDS/BIOL SUBST, SELF-HARM, INIT Status: Acute Current Visit: No (9) Drug-seeking behavior SNOMED Code(s): 184452833 ICD Code: Z72.89 - OTHER PROBLEMS RELATED TO LIFESTYLE Status: Acute Current Visit: No Problem List Initiated/Reviewed/Updated: Yes Orders Last 24hrs: Active Orders 24 hr Category Date Time Status LORazepam [Ativan] Med 02/27/17 16:35 Once 2 mg IVPUSH ONETIME ONE Medication Orders Sodium Chloride (Normal Saline) 1,000 mls @ 125 mls/hr IV ASDIRECTED HÉCTOR Last Admin: 02/27/17 14:27 Dose: 125 mls/hr Lorazepam (Ativan) 2 mg IVPUSH ONETIME ONE Stop: 02/27/17 16:36 Sodium Chloride (Saline Flush) 10 ml FLUSH ASDIRECTED PRN PRN Reason: Keep Vein Open Last Admin: 02/27/17 15:48 Dose: 10 ml Assessment/Plan Comment:: Impression: Suicide gesture Salicylate exposure NSAID History of Depression/Anxiety Polysubstance abuse (ETOH, marijuana, methamphetamine, fentanyl) Chronic Obesity GERD HLD Plan: IVF, NSAID exposure Follow salicylate level CIWA Prophylactic folic acid and thiamine Start low dose benzodiazepine Correct electrolytes Substance abuse consult Psych consult (AA, pastoral care) SW/PT/OT DVT/GI prophylaxis
[2017-02-27] MEDS ORDERED: Ondansetron 4 MG/2 ML SDV IVPUSH PRN (16:59)
[2017-02-27] MEDS: Lactated Ringers 1,000 ML IV SCH (18:14)
[2017-02-27] MEDS ORDERED: Temazepam 15 MG Cap PO PRN (19:50)
[2017-02-27] MEDS: LORazepam 2 MG/ML MDV IVPUSH PRN (20:24)
[2017-02-27] MEDS ORDERED: chlordiazePOXIDE 10 MG Cap PO SCH ×2 (21:00→21:01)
[2017-02-27] MEDS: Thiamine 100 MG Tab PO SCH (22:03)
[2017-02-27] MEDS: QUEtiapine 25 MG Tab PO SCH (22:04)
[2017-02-28] MEDS: Lactated Ringers 1,000 ML IV SCH ×4 (01:00→19:23)
[2017-02-28] MEDS: LORazepam 2 MG/ML MDV IVPUSH PRN ×9 (03:44→21:34)
[2017-02-28] MEDS ORDERED: Pantoprazole 40 MG Tab.CR PO SCH (06:00)
[2017-02-28] MEDS: Folic Acid 1 MG Tab PO SCH (08:11)
[2017-02-28] MEDS: chlordiazePOXIDE 25 MG Cap PO SCH ×3 (08:12→21:33)
[2017-02-28] MEDS: Venlafaxine 75 MG Cap.ER PO SCH (08:12)
[2017-02-28] MEDS: Enoxaparin 40 MG/0.4 ML Syringe SUBCUT SCH (08:14)
[2017-02-28] MEDS: Nicotine 21 MG/24 Hr Patch TRDERM SCH (08:26)
[2017-02-28] MEDS: HYDROmorphone 0.5 MG/0.5 ML Syringe IVPUSH PRN ×5 (10:55→23:38)
[2017-02-28] MEDS: Sucralfate 1 GM Tab PO SCH ×3 (12:14→21:34)
[2017-02-28] MEDS ORDERED: hydrALAZINE 20 MG/ML SDV IVPUSH PRN (12:23)
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
[2017-02-28] MEDS: Pantoprazole 40 MG Vial IVPUSH SCH (21:33)
[2017-02-28] MEDS: Thiamine 100 MG Tab PO SCH (21:34)
[2017-02-28] MEDS: QUEtiapine 25 MG Tab PO SCH (21:34)
--- NOTE | 2017-02-28 23:56 | CONS ---
CONSULTING PHYSICIAN: Dean Tucker MD DATE OF CONSULTATION: 02/28/2017 This is a 60-minute inpatient clinical event. IDENTIFICATION: The patient is a 51-year-old female who was admitted to the Inpatient Medical Intensive Care Unit at [facility] in [place], [place]. She is seen for psychiatric evaluation. CHIEF COMPLAINT: "A lot of things changed." HISTORY OF PRESENT ILLNESS: The patient is a 51-year-old female reports that she has been drinking "pretty heavily" lately. She states she has a long history of alcohol dependence and most recently she has been drinking about 5 to 7 shots of hard liquor every day. She states that she has been having some relationship difficulties lately with her ex-. Evidently, they live together in [place] and he is on the road a lot as an [employer]dot[employer] test preparer. When he is gone, she feels pretty alone and she starts drinking heavily. She states "I got very intoxicated and I took about 60 pills. I was feeling very pushed out of the picture" in regard to her ex-. The patient states that she is not suicidal or homicidal at this point in time, but she is experiencing some visual hallucinations and some more memory issues. She is increasingly isolative and she states she is on Effexor XR for depression, she is taking 150 a day, and she does feel that this helps even with the heavy drinking. She is open for treatment to help with her drinking. She states she last drank about 24 hours ago and she would not mind going to "a 30-day treatment" facility if that is possible. MEDICATIONS: At time of presentation, Effexor XR 150 mg q.a.m. ALLERGIES: 1. Sulfa, which causes rash. 2. Ibuprofen, which causes rash. 3. Ketorolac, which causes rash. 4. Sumatriptan, which causes rash. PAST MEDICAL HISTORY: 1. Sleep apnea. 2. Restrictive lung disease. 3. Past history of epilepsy as a child. REVIEW OF SYSTEMS: Aside from pulmonary and neuro, all other major organ systems are negative at this point in time for acute difficulties or complications. FAMILY PSYCHIATRIC AND CD HISTORY: The patient reports father and mother may have had a history of alcoholism. PAST PSYCHIATRIC AND CD HISTORY: The patient reports 7 psychiatric hospitalizations, last one being in 2014 in [place]. She reports chemical dependency treatments x6 with most recent treatment being in 2014, also at [place] for alcohol and possible opioids. She states again she is drinking about 5 to 7 shots of hard liquor a day. She smokes 1 cigarette a day. She reports a prior suicide attempt by overdose. Denies any eating disorder history. Staff psychiatric medication history includes Prozac, Ativan, trazodone, Wellbutrin, phenobarbital, Valium, and Xanax, and the latter two she does not feel were effective for her. Past psychiatric diagnosis includes depression and anxiety. Primary MD is Cy Nice at [facility] and before that . SOCIAL HISTORY: The patient was born and raised in [place], [place]. She reports her parents when the patient was 9 years of age. Her mother remarried soon after dad. Her stepfather was a test preparer and mother was a real estate executive assistant. The patient's highest level of education is one year of trade school. 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 She was x1 for 8 years, for the past 16 years, but still with the ex- who is an over-the- road test preparer. She has one daughter from this union, 24 years of age. She had 2 abortions in the past at 20 years of age and 25 years of age that she moved past. She lives in [place] at this point in time with her ex-. Denies any prior service or current legal difficulties. She is Denominational in terms of her judi formation. She enjoys spending time with her cats, cleaning house, driving, watching [employer], and generally being a homebody. MENTAL STATUS EXAM: The patient is a 51-year-old talkative white female, in no apparent distress. Speech is of regular rate and rhythm. The patient is cognitively oriented x3. Psychomotor activities within normal limits. There is no abnormal motor movements or tics observed. Gait is steady. Station is normal. Mood is frustrated, depressed, and anxious. Affect is cooperative overall for the purposes of the inpatient psychiatric consult. There is no behavioral or stated evidence of acute suicidal or homicidal ideation. Thought content is significant for visual hallucinations. Thought processes are significant for some ruminations, but organized overall. There are no acute manic symptoms, loose associations evident. Judgment and insight appear into the severity of her alcohol addiction, appears somewhat impaired, but motivation for help is good. VITAL SIGNS: Vitals at the time of admission blood pressure 138/94, pulse 98, respirations 16, temperature 97.2 degrees. IMPRESSION: AXIS I: 1. Alcohol dependence, F10.20. 2. Major depressive disorder, recurrent, F33. 3. Psychosis, not otherwise specified, F29. 4. Anxiety disorder, not otherwise specified, F41.9. 5. Rule out opioid dependence versus abuse. AXIS II: None. AXIS III: 1. Sleep apnea. 2. Restrictive lung disease. 3. Past history of epilepsy as a child. AXIS IV: Severe. AXIS V: Global Assessment of Functioning of 50 to 55. PLAN: 1. Sobriety. 2. AA rep to visit the patient while on unit. 3. Pastoral guidance. 4. CD evaluation while the patient is on unit. 5. Folic acid supplementation. 6. Thiamine supplementation. 7. Begin Seroquel 25 mg at bedtime to help with psychotic symptoms, sleep initiation and maintenance, anxiety reduction, mood stability, as well as clarity of thought overall. 8. Librium 25 mg t.i.d. for symptoms of withdrawal. 9. Ativan per CIOH protocol for withdrawal. 10.Continue Effexor XR 150 mg q.a.m. for mood. 11.Other medications as dosed and prescribed by the patient's primary inpatient medical treatment team. 12.Recommend that when patient is medically stabilized, she be transferred to inpatient chemical dependency treatment for help with her primary alcohol addiction. 13.We will continue followup with the patient on a regular basis as needed while she remains on the inpatient MICU. 14.We will follow up with the patient sooner if there are any complications in the interim. 15.Crisis plan is in place. MMLEYDI /[id number]
[2017-03-01] MEDS: LORazepam 2 MG/ML MDV IVPUSH PRN ×7 (02:17→21:51)
[2017-03-01] MEDS: HYDROmorphone 0.5 MG/0.5 ML Syringe IVPUSH PRN ×3 (03:37→10:27)
[2017-03-01] MEDS: Lactated Ringers 1,000 ML IV SCH (05:43)
--- NOTE | 2017-03-01 08:53 | PCM.PN ---
- General Info Date of Service: 02/28/17 Subjective Update: PT C/O ABD PAIN AND lOWER BACK PAIN ANXIOUS NO N/V - Patient Data Vitals - Most Recent: Last Vital Signs Temp 97.2 F 03/01/17 08:00 Pulse 90 02/28/17 16:00 Resp 14 03/01/17 08:00 BP 113/75 03/01/17 08:00 Pulse Ox 93 L 03/01/17 08:00 Weight - Most Recent: 221 lb 4.8 oz I&O - Last 24 Hours: Intake & Output 02/28/17 03/01/17 03/01/17 22:59 06:59 14:59 Intake Total 1938 1420 Output Total 100 450 Balance 1838 970 Lab Results Last 24 Hours: Laboratory Results - last 24 hr 03/01/17 03/01/17 Range/Units 05:53 05:53 WBC 4.99 (3.98-10.04) K/mm3 RBC 4.13 (3.98-5.22) M/mm3 Hgb 13.6 (11.2-15.7) gm/L Hct 42.6 (34.1-44.9) % MCV 103.1 H (79.4-94.8) fl MCH 32.9 H (25.6-32.2) pg MCHC 31.9 L (32.2-35.5) g/dl RDW Std Deviation 47.2 H (36.4-46.3) fL Plt Count 259 (182-369) K/mm3 MPV 10.6 (9.4-12.3) fl Neut % (Auto) 60.9 (34.0-71.1) % Lymph % (Auto) 25.7 (19.3-51.7) % [place] % (Auto) 6.6 (4.7-12.5) % Eos % (Auto) 6.2 H (0.7-5.8) Baso % (Auto) 0.6 (0.1-1.2) % Neut # (Auto) 3.04 (1.56-6.13) K/mm3 Lymph # (Auto) 1.28 (1.18-3.74) K/mm3 [place] # (Auto) 0.33 (0.24-0.36) K/mm3 Eos # (Auto) 0.31 (0.04-0.36) K/mm3 Baso # (Auto) 0.03 (0.01-0.08) K/mm3 Sodium 144 (136-145) mEq/L Potassium 4.0 (3.5-5.1) mEq/L Chloride 107 (98-107) mEq/L Carbon Dioxide 31 (21-32) mEq/L Anion Gap 10.0 (5-15) BUN 8 (7-18) mg/dL Creatinine 0.8 (0.55-1.02) mg/dL Est Cr Clr Drug Dosing 74.02 mL/min Estimated GFR (MDRD) > 60 (>60) mL/min BUN/Creatinine Ratio 10.0 L (14-18) Glucose 89 (74-106) mg/dL Calcium 9.4 (8.5-10.1) mg/dL Magnesium 1.8 (1.8-2.4) mg/dl C-Reactive Protein < 0.2 (<1.0) mg/dL Med Orders - Current: Current Medications Acetaminophen (Tylenol) 650 mg PO Q4H PRN PRN Reason: Pain Chlordiazepoxide HCl (Librium) 25 mg PO TID [facility] Last Admin: 02/28/17 21:33 Dose: 25 mg Enoxaparin Sodium (Lovenox) 40 mg SUBCUT DAILY [facility] Last Admin: 02/28/17 08:14 Dose: 40 mg Folic Acid (Folic Acid) 1 mg PO DAILY [facility] Last Admin: 02/28/17 08:11 Dose: 1 mg Hydralazine HCl (Apresoline) 10 mg IVPUSH Q4H PRN PRN Reason: Hypertension Last Admin: 02/28/17 12:42 Dose: 10 mg Hydromorphone HCl (Dilaudid) 0.5 mg IVPUSH Q3H PRN PRN Reason: Pain Last Admin: 03/01/17 06:58 Dose: 0.5 mg Lactated Ringer's (Ringers, Lactated) 1,000 mls @ 100 mls/hr IV ASDIRECTED [facility] Last Admin: 03/01/17 05:43 Dose: 100 mls/hr Lorazepam (Ativan) 2 mg IVPUSH Q6H PRN PRN Reason: Anxiety Last Admin: 02/28/17 09:31 Dose: 1 mg Lorazepam (Ativan) 0 mg IVPUSH Q1H PRN; Protocol PRN Reason: Withdrawl Last Admin: 03/01/17 05:41 Dose: 2 mg Nicotine (Habitrol) 21 mg TRDERM DAILY [facility] Last Admin: 02/28/17 08:26 Dose: 21 mg Ondansetron HCl (Zofran) 4 mg IVPUSH Q8H PRN PRN Reason: Nausea/Vomiting Pantoprazole Sodium (Protonix Iv) 40 mg IVPUSH BID [facility] Last Admin: 02/28/17 21:33 Dose: 40 mg Quetiapine Fumarate (Seroquel) 25 mg PO BEDTIME [facility] Last Admin: 02/28/17 21:34 Dose: 25 mg Sodium Chloride (Saline Flush) 10 ml FLUSH ASDIRECTED PRN PRN Reason: Keep Vein Open Last Admin: 02/27/17 15:48 Dose: 10 ml Sucralfate (Carafate) 1 gm PO QID [facility] Last Admin: 02/28/17 21:34 Dose: 1 gm Thiamine HCl (Vitamin B-1) 100 mg PO BEDTIME [facility] Last Admin: 02/28/17 21:34 Dose: 100 mg Venlafaxine HCl (Effexor Xr) 150 mg PO DAILY [facility] Last Admin: 02/28/17 08:12 Dose: 150 mg Discontinued Medications Chlordiazepoxide HCl (Librium) 10 mg PO TID [facility] Last Admin: 02/27/17 22:07 Dose: Not Given Chlordiazepoxide HCl (Librium) 10 mg PO BID [facility] Sodium Chloride (Normal Saline) 1,000 mls @ 125 mls/hr IV ASDIRECTED [facility] Last Admin: 02/27/17 14:27 Dose: 125 mls/hr Lactated Ringer's (Ringers, Lactated) 1,000 mls @ 150 mls/hr IV ASDIRECTED [facility] Stop: 02/28/17 05:29 Last Admin: 02/28/17 01:00 Dose: 150 mls/hr Lorazepam (Ativan) 2 mg IVPUSH ONETIME ONE Stop: 02/27/17 16:36 Last Admin: 02/27/17 17:03 Dose: 2 mg Ondansetron HCl (Zofran) 4 mg IVPUSH ONETIME ONE Stop: 02/27/17 13:22 Last Admin: 02/27/17 14:17 Dose: 4 mg Pantoprazole Sodium (Protonix) 40 mg PO BIDAC [facility] Last Admin: 02/28/17 06:06 Dose: 40 mg Temazepam (Restoril) 15 mg PO BEDTIME PRN PRN Reason: Sleep - Exam General: Alert, Oriented HEENT: Pupils Equal, Pupils Reactive, EOMI, Mucous Membr. Moist/[place] Neck: Supple Lungs: Clear to Auscultation, Normal Respiratory Effort Cardiovascular: Regular Rate, Regular Rhythm GI/Abdominal Exam: Normal Bowel Sounds, Soft, Non-Tender, No Organomegaly, No Distention, No Abnormal Bruit, No Mass, Pelvis Stable (Female) Exam: Deferred Back Exam: Normal Inspection Extremities: Normal Inspection, Normal Range of Motion, Non-Tender, No Pedal Edema, Normal Capillary Refill Skin: Warm, Dry, Intact Wound/Incisions: Healing Well Neurological: No New Focal Deficit Psy/Mental Status: Alert, Normal Affect, Normal Mood - Problem List Review Problem List Initiated/Reviewed/Updated: Yes - My Orders Last 24 Hours: My Active Orders 02/28/17 10:11 HYDROmorphone [Dilaudid] 0.5 mg IVPUSH Q3H PRN 02/28/17 12:23 hydrALAZINE [Apresoline] 10 mg IVPUSH Q4H PRN 02/28/17 13:00 Sucralfate [Carafate] 1 gm PO QID 02/28/17 21:00 Pantoprazole [ProTONIX IV] 40 mg IVPUSH BID - Plan Plan:: Impression: Suicide gesture Salicylate exposure NSAID History of Depression/Anxiety Polysubstance abuse (ETOH, marijuana, methamphetamine, fentanyl) Chronic Obesity GERD HLD Plan: IVF Follow salicylate level. WNL, WILL STOP CIWA PPI BID Prophylactic folic acid and thiamine Start low dose benzodiazepine Correct electrolytes Substance abuse consult Psych consult (AA, pastoral care) SW/PT/OT DVT/GI prophylaxis
[2017-03-01] MEDS: chlordiazePOXIDE 25 MG Cap PO SCH ×3 (09:06→21:51)
[2017-03-01] MEDS: Sucralfate 1 GM Tab PO SCH ×4 (09:06→21:50)
[2017-03-01] MEDS: Venlafaxine 75 MG Cap.ER PO SCH (09:06)
[2017-03-01] MEDS: Folic Acid 1 MG Tab PO SCH (09:06)
[2017-03-01] MEDS: Enoxaparin 40 MG/0.4 ML Syringe SUBCUT SCH (09:07)
[2017-03-01] MEDS: Pantoprazole 40 MG Vial IVPUSH SCH (09:07)
[2017-03-01] MEDS: Nicotine 21 MG/24 Hr Patch TRDERM SCH (09:12)
--- NOTE | 2017-03-01 13:58 | PCM.PN ---
- General Info Date of Service: 03/01/17 Functional Status: Reports: Pain Controlled - Patient Data Vitals - Most Recent: Last Vital Signs Temp 98.0 F 03/01/17 12:00 Pulse 90 02/28/17 16:00 Resp 16 03/01/17 12:00 BP 114/71 03/01/17 12:00 Pulse Ox 96 03/01/17 12:00 Weight - Most Recent: 221 lb 4.8 oz I&O - Last 24 Hours: Intake & Output 02/28/17 03/01/17 03/01/17 22:59 06:59 14:59 Output Total 1000 Balance -1000 Med Orders - Current: Current Medications Acetaminophen (Tylenol) 650 mg PO Q4H PRN PRN Reason: Pain Chlordiazepoxide HCl (Librium) 25 mg PO TID [facility] Last Admin: 03/01/17 09:06 Dose: 25 mg Enoxaparin Sodium (Lovenox) 40 mg SUBCUT DAILY [facility] Last Admin: 03/01/17 09:07 Dose: 40 mg Folic Acid (Folic Acid) 1 mg PO DAILY [facility] Last Admin: 03/01/17 09:06 Dose: 1 mg Hydralazine HCl (Apresoline) 10 mg IVPUSH Q4H PRN PRN Reason: Hypertension Last Admin: 02/28/17 12:42 Dose: 10 mg Lorazepam (Ativan) 2 mg IVPUSH Q6H PRN PRN Reason: Anxiety Last Admin: 03/01/17 10:31 Dose: 2 mg Lorazepam (Ativan) 0 mg IVPUSH Q1H PRN; Protocol PRN Reason: Withdrawl Last Admin: 03/01/17 13:19 Dose: 1 mg Nicotine (Habitrol) 21 mg TRDERM DAILY [facility] Last Admin: 03/01/17 09:12 Dose: 21 mg Ondansetron HCl (Zofran) 4 mg IVPUSH Q8H PRN PRN Reason: Nausea/Vomiting Oxycodone/Acetaminophen (Percocet 325-5 Mg) 1 tab PO Q6H PRN PRN Reason: PAIN Pantoprazole Sodium (Protonix) 40 mg PO BIDMEALS [facility] Quetiapine Fumarate (Seroquel) 25 mg PO BEDTIME [facility] Last Admin: 02/28/17 21:34 Dose: 25 mg Sodium Chloride (Saline Flush) 10 ml FLUSH ASDIRECTED PRN PRN Reason: Keep Vein Open Last Admin: 02/27/17 15:48 Dose: 10 ml Sucralfate (Carafate) 1 gm PO QID [facility] Last Admin: 03/01/17 13:19 Dose: 1 gm Thiamine HCl (Vitamin B-1) 100 mg PO BEDTIME [facility] Last Admin: 02/28/17 21:34 Dose: 100 mg Venlafaxine HCl (Effexor Xr) 150 mg PO DAILY [facility] Last Admin: 03/01/17 09:06 Dose: 150 mg Discontinued Medications Chlordiazepoxide HCl (Librium) 10 mg PO TID [facility] Last Admin: 02/27/17 22:07 Dose: Not Given Chlordiazepoxide HCl (Librium) 10 mg PO BID [facility] Hydromorphone HCl (Dilaudid) 0.5 mg IVPUSH Q3H PRN PRN Reason: Pain Last Admin: 03/01/17 10:27 Dose: 0.5 mg Sodium Chloride (Normal Saline) 1,000 mls @ 125 mls/hr IV ASDIRECTED [facility] Last Admin: 02/27/17 14:27 Dose: 125 mls/hr Lactated Ringer's (Ringers, Lactated) 1,000 mls @ 150 mls/hr IV ASDIRECTED [facility] Stop: 02/28/17 05:29 Last Admin: 02/28/17 01:00 Dose: 150 mls/hr Lactated Ringer's (Ringers, Lactated) 1,000 mls @ 100 mls/hr IV ASDIRECTED [facility] Last Admin: 03/01/17 05:43 Dose: 100 mls/hr Lorazepam (Ativan) 2 mg IVPUSH ONETIME ONE Stop: 02/27/17 16:36 Last Admin: 02/27/17 17:03 Dose: 2 mg Ondansetron HCl (Zofran) 4 mg IVPUSH ONETIME ONE Stop: 02/27/17 13:22 Last Admin: 02/27/17 14:17 Dose: 4 mg [facility] Admin: 02/28/17 06:06 Dose: 40 mg Pantoprazole Sodium (Protonix Iv) 40 mg IVPUSH BID [facility] Last Admin: 03/01/17 09:07 Dose: 40 mg Temazepam (Restoril) 15 mg PO BEDTIME PRN PRN Reason: Sleep - Exam General: Alert, Oriented HEENT: Pupils Equal, Pupils Reactive, EOMI, Mucous Membr. Moist/[place] Neck: Supple Lungs: Clear to Auscultation, Normal Respiratory Effort Cardiovascular: Regular Rate, Regular Rhythm GI/Abdominal Exam: Normal Bowel Sounds, Soft, Non-Tender, No Organomegaly, No Distention, No Abnormal Bruit, No Mass, Pelvis Stable Extremities: Normal Inspection, Normal Range of Motion, Non-Tender, No Pedal Edema, Normal Capillary Refill Skin: Warm, Dry, Intact Neurological: No New Focal Deficit Psy/Mental Status: Anxious, Depressed. No: Suicidal Ideation, Homicidal Ideation - Problem List Review Problem List Initiated/Reviewed/Updated: Yes - Plan Plan:: Impression: Salicylate exposure NSAID History of Depression/Anxiety Polysubstance abuse (ETOH, marijuana, methamphetamine, fentanyl) Chronic Obesity GERD HLD Plan: STOP IVF CHANGE PPI TO ORAL Psych consult -->EFFEXOR AND SEROQUEL MEDICALLY CLEARED SW/PT/OT DVT/GI prophylaxis HOSPITAL STAY MORE THAN 96H, PENDING DC ON BED AVAILABLE FOR IP REHAB VS IP PSYCH ADMIT
[2017-03-01] MEDS: Acetaminophen/oxyCODONE 325-5 MG Tab PO PRN (14:14)
[2017-03-01] MEDS: Pantoprazole 40 MG Tab.CR PO SCH (16:46)
[2017-03-01] MEDS: Acetaminophen 325 MG Tab PO PRN (16:53)
--- NOTE | 2017-03-01 19:12 | CT ---
Head CT Technique: Multiple axial sections through the brain were obtained. Intravenous contrast was not utilized. Comparison: Prior head CT study of 10/27/16. Findings: Ventricles along with basal cisterns and sulci over the convexities are mildly prominent. No abnormal parenchymal densities are seen. No evidence of intracranial hemorrhage. No midline shift or mass effect is seen. Bone window settings were obtained which show no discrete calvarial abnormality. Visualized sinuses are clear. Impression: 1. Mild generalized atrophy. 2. No acute intracranial abnormality is identified. No significant change is seen from prior CT exam. Diagnostic code #2
[2017-03-01] MEDS: QUEtiapine 25 MG Tab PO SCH (21:50)
[2017-03-01] MEDS: Thiamine 100 MG Tab PO SCH (21:50)
[2017-03-02] MEDS: Acetaminophen/oxyCODONE 325-5 MG Tab PO PRN ×4 (03:47→23:00)
[2017-03-02] MEDS: LORazepam 2 MG/ML MDV IVPUSH PRN ×2 (03:49→06:20)
[2017-03-02] MEDS: Pantoprazole 40 MG Tab.CR PO SCH ×2 (06:20→16:45)
[2017-03-02] MEDS: chlordiazePOXIDE 25 MG Cap PO SCH ×3 (08:00→21:11)
[2017-03-02] MEDS: Enoxaparin 40 MG/0.4 ML Syringe SUBCUT SCH (08:00)
[2017-03-02] MEDS: Folic Acid 1 MG Tab PO SCH (08:00)
[2017-03-02] MEDS: Venlafaxine 75 MG Cap.ER PO SCH (08:00)
[2017-03-02] MEDS: Sucralfate 1 GM Tab PO SCH ×4 (08:00→21:11)
[2017-03-02] MEDS: Nicotine 21 MG/24 Hr Patch TRDERM SCH (09:19)
[2017-03-02] MEDS: Acetaminophen 325 MG Tab PO PRN (09:23)
[2017-03-02] MEDS: LORazepam 1 MG Tab PO PRN ×3 (10:24→23:00)
--- NOTE | 2017-03-02 11:27 | PCM.PN ---
- General Info Date of Service: 03/02/17 Functional Status: Reports: Pain Controlled - Review of Systems General: Reports: No Symptoms HEENT: Reports: No Symptoms Pulmonary: Reports: No Symptoms Cardiovascular: Reports: No Symptoms Gastrointestinal: Reports: No Symptoms Genitourinary: Reports: No Symptoms Musculoskeletal: Reports: No Symptoms Skin: Reports: No Symptoms Neurological: Reports: No Symptoms Psychiatric: Reports: No Symptoms - Patient Data Vitals - Most Recent: Last Vital Signs Temp 97.2 F 03/02/17 08:00 Pulse 90 02/28/17 16:00 Resp 18 03/02/17 08:00 BP 136/86 03/02/17 08:00 Pulse Ox 94 L 03/02/17 08:00 Weight - Most Recent: 223 lb 1 oz I&O - Last 24 Hours: Intake & Output 03/01/17 03/02/17 03/02/17 22:59 06:59 14:59 Intake Total 1170 825 100 Output Total 600 750 Balance 570 75 100 Lab Results Last 24 Hours: Laboratory Results - last 24 hr 03/02/17 03/02/17 Range/Units 07:42 07:42 WBC 5.05 (3.98-10.04) K/mm3 RBC 3.93 L (3.98-5.22) M/mm3 Hgb 13.0 (11.2-15.7) gm/L Hct 40.1 (34.1-44.9) % MCV 102.0 H (79.4-94.8) fl MCH 33.1 H (25.6-32.2) pg MCHC 32.4 (32.2-35.5) g/dl RDW Std Deviation 45.4 (36.4-46.3) fL Plt Count 241 (182-369) K/mm3 MPV 10.5 (9.4-12.3) fl Neut % (Auto) 62.2 (34.0-71.1) % Lymph % (Auto) 22.6 (19.3-51.7) % [place] % (Auto) 8.3 (4.7-12.5) % Eos % (Auto) 6.5 H (0.7-5.8) Baso % (Auto) 0.4 (0.1-1.2) % Neut # (Auto) 3.14 (1.56-6.13) K/mm3 Lymph # (Auto) 1.14 L (1.18-3.74) K/mm3 [place] # (Auto) 0.42 H (0.24-0.36) K/mm3 Eos # (Auto) 0.33 (0.04-0.36) K/mm3 Baso # (Auto) 0.02 (0.01-0.08) K/mm3 Sodium 143 (136-145) mEq/L Potassium 3.8 (3.5-5.1) mEq/L Chloride 106 (98-107) mEq/L Carbon Dioxide 28 (21-32) mEq/L Anion Gap 12.8 (5-15) BUN 9 (7-18) mg/dL Creatinine 0.8 (0.55-1.02) mg/dL Est Cr Clr Drug Dosing 74.02 mL/min Estimated GFR (MDRD) > 60 (>60) mL/min BUN/Creatinine Ratio 11.3 L (14-18) Glucose 103 (74-106) mg/dL Calcium 9.3 (8.5-10.1) mg/dL Magnesium 1.9 (1.8-2.4) mg/dl C-Reactive Protein 1.3 H* (<1.0) mg/dL Med Orders - Current: Current Medications Acetaminophen (Tylenol) 650 mg PO Q4H PRN PRN Reason: Pain Last Admin: 03/02/17 09:23 Dose: 650 mg Chlordiazepoxide HCl (Librium) 25 mg PO TID [facility] Last Admin: 03/02/17 08:00 Dose: 25 mg Enoxaparin Sodium (Lovenox) 40 mg SUBCUT DAILY [facility] Last Admin: 03/02/17 08:00 Dose: 40 mg Folic Acid (Folic Acid) 1 mg PO DAILY [facility] Last Admin: 03/02/17 08:00 Dose: 1 mg Hydralazine HCl (Apresoline) 10 mg IVPUSH Q4H PRN PRN Reason: Hypertension Last Admin: 02/28/17 12:42 Dose: 10 mg Lorazepam (Ativan) 0 mg IVPUSH Q1H PRN; Protocol PRN Reason: Withdrawl Last Admin: 03/02/17 03:49 Dose: 1 mg Lorazepam (Ativan) 2 mg PO Q6H PRN PRN Reason: Anxiety Last Admin: 03/02/17 10:24 Dose: 2 mg Nicotine (Habitrol) 21 mg TRDERM DAILY [facility] Last Admin: 03/02/17 09:19 Dose: Not Given Ondansetron HCl (Zofran) 4 mg IVPUSH Q8H PRN PRN Reason: Nausea/Vomiting Oxycodone/Acetaminophen (Percocet 325-5 Mg) 1 tab PO Q6H PRN PRN Reason: PAIN Last Admin: 03/02/17 09:22 Dose: 1 tab Pantoprazole Sodium (Protonix) 40 mg PO BIDMEALS [facility] Last Admin: 03/02/17 06:20 Dose: 40 mg Quetiapine Fumarate (Seroquel) 25 mg PO BEDTIME [facility] Last Admin: 03/01/17 21:50 Dose: 25 mg Sodium Chloride (Saline Flush) 10 ml FLUSH ASDIRECTED PRN PRN Reason: Keep Vein Open Last Admin: 02/27/17 15:48 Dose: 10 ml Sucralfate (Carafate) 1 gm PO QID [facility] Last Admin: 03/02/17 08:00 Dose: 1 gm Thiamine HCl (Vitamin B-1) 100 mg PO BEDTIME [facility] Last Admin: 03/01/17 21:50 Dose: 100 mg Venlafaxine HCl (Effexor Xr) 150 mg PO DAILY [facility] Last Admin: 03/02/17 08:00 Dose: 150 mg Discontinued Medications Chlordiazepoxide HCl (Librium) 10 mg PO TID [facility] Last Admin: 02/27/17 22:07 Dose: Not Given Chlordiazepoxide HCl (Librium) 10 mg PO BID [facility] Hydromorphone HCl (Dilaudid) 0.5 mg IVPUSH Q3H PRN PRN Reason: Pain Last Admin: 03/01/17 10:27 Dose: 0.5 mg Sodium Chloride (Normal Saline) 1,000 mls @ 125 mls/hr IV ASDIRECTED [facility] Last Admin: 02/27/17 14:27 Dose: 125 mls/hr Lactated Ringer's (Ringers, Lactated) 1,000 mls @ 150 mls/hr IV ASDIRECTED [facility] Stop: 02/28/17 05:29 Last Admin: 02/28/17 01:00 Dose: 150 mls/hr Lactated Ringer's (Ringers, Lactated) 1,000 mls @ 100 mls/hr IV ASDIRECTED [facility] Last Admin: 03/01/17 05:43 Dose: 100 mls/hr Lorazepam (Ativan) 2 mg IVPUSH ONETIME ONE Stop: 02/27/17 16:36 Last Admin: 02/27/17 17:03 Dose: 2 mg Lorazepam (Ativan) 2 mg IVPUSH Q6H PRN PRN Reason: Anxiety Last Admin: 03/02/17 06:20 Dose: 2 mg Ondansetron HCl (Zofran) 4 mg IVPUSH ONETIME ONE Stop: 02/27/17 13:22 Last Admin: 02/27/17 14:17 Dose: 4 mg [facility] Last Admin: 02/28/17 06:06 Dose: 40 mg Pantoprazole Sodium (Protonix Iv) 40 mg IVPUSH BID [facility] Last Admin: 03/01/17 09:07 Dose: 40 mg Temazepam (Restoril) 15 mg PO BEDTIME PRN PRN Reason: Sleep - Exam General: Alert, Oriented HEENT: Pupils Equal, Pupils Reactive, EOMI, Mucous Membr. Moist/[place] Neck: Supple Lungs: Clear to Auscultation, Normal Respiratory Effort Cardiovascular: Regular Rate, Regular Rhythm GI/Abdominal Exam: Normal Bowel Sounds, Soft, Non-Tender, No Organomegaly, No Distention, No Abnormal Bruit, No Mass, Pelvis Stable Back Exam: Normal Inspection, Full Range of Motion Extremities: Normal Inspection, Normal Range of Motion, Non-Tender, No Pedal Edema, Normal Capillary Refill - Problem List Review Problem List Initiated/Reviewed/Updated: Yes - My Orders Last 24 Hours: My Active Orders 03/02/17 09:09 LORazepam [Ativan] 2 mg PO Q6H PRN 03/02/17 09:11 Admission Status [Patient Status] [ADT] Routine 03/02/17 09:39 Communication Order [RC] ASDIRECTED - Plan Plan:: Impression: Salicylate exposure NSAID History of Depression/Anxiety Polysubstance abuse (ETOH, marijuana, methamphetamine, fentanyl) Chronic Obesity GERD HLD Plan: change ativan to oral DC IV DT resolved pending transportation for accepting facility HOSPITAL STAY MORE THAN 96H, PENDING DC ON BED AVAILABLE FOR IP REHAB VS IP PSYCH ADMIT
[2017-03-02] MEDS: QUEtiapine 25 MG Tab PO SCH (21:11)
[2017-03-02] MEDS: Thiamine 100 MG Tab PO SCH (21:11)
[2017-03-03] MEDS: Pantoprazole 40 MG Tab.CR PO SCH (06:12)
[2017-03-03] MEDS: Acetaminophen/oxyCODONE 325-5 MG Tab PO PRN ×2 (06:13→12:27)
[2017-03-03] MEDS: LORazepam 1 MG Tab PO PRN ×2 (06:13→12:28)
[2017-03-03] MEDS: Folic Acid 1 MG Tab PO SCH (08:33)
[2017-03-03] MEDS: Nicotine 21 MG/24 Hr Patch TRDERM SCH (08:33)
[2017-03-03] MEDS: Venlafaxine 75 MG Cap.ER PO SCH (08:33)
[2017-03-03] MEDS: chlordiazePOXIDE 25 MG Cap PO SCH (08:33)
[2017-03-03] MEDS: Enoxaparin 40 MG/0.4 ML Syringe SUBCUT SCH (08:33)
[2017-03-03] MEDS: Sucralfate 1 GM Tab PO SCH (08:33)
--- NOTE | 2017-03-03 09:09 | PCM.DCSUM1 ---
Discharge Summary - Hospital Course Free Text/Narrative:: 51 year old female well known to the ED at [facility] for multiple presentations often times for alcohol or drug use. On this occasion, she presents after a suicide gesture taking a total of sixty tablets: 30 ASA 325 mg /30 Naprosyn 500 mg. She stated that she was not trying to kill herself but wanted to get her exhusband's attention. She apparently has been living with him, and he reportedly stated it is time for her to get out. The patient reports that he is moving to [place]. She states that the news of his moving has triggered depression. She denies taking illegal substances on this occasion. ED eval was with salicylate level of 9.1, alcohol level of 0.22, UA was negative , UDS negative. LFT's mildly elevated, CBC without elevated WBC or anemia but with macrocytosis. Hospitalist service was consulted for admission for alcohol withdrawal, overdose , suicidal gesture. Patient was admitted to ICU monitor was CIWAA protocol with Ativan per CIWAA protocol, Librium, Serodimitril. Psychiatry and Licensed Addiction Counselor were consulted. Patient is committed to inpatient treatment per licensed addiction counselor. She continued to have complaints of chronic back pain, was medicated for this. Salicylate levels were followed and peaked at 12.5. Other electrolytes remained within normal limits. She continued to have macrocytosis without anemia. She was supplemented with folic acid and thiamine. Alcohol of her return to 0. She is discharged today to the [facility] to transport to [facility] for inpatient rehabilitation. - Discharge Data Discharge Date: 03/03/17 (admit date 03/01/17) Discharge Disposition: DC/Tfer to Inpt Rehab Fac 62 Condition: Fair - Discharge Diagnosis/Problem(s) (1) Drug overdose - suicide SNOMED Code(s): 933430631 ICD Code: T50.902A - POISONING BY UNSP DRUG/MEDS/BIOL SUBST, SELF-HARM, INIT Status: Acute Priority: High Current Visit: Yes (2) Alcohol withdrawal syndrome SNOMED Code(s): 977550796 ICD Code: F10.239 - ALCOHOL DEPENDENCE WITH WITHDRAWAL, UNSPECIFIED Status : Acute Priority: High Current Visit: Yes (3) Elevated liver enzymes SNOMED Code(s): 092676855 ICD Code: R74.8 - ABNORMAL LEVELS OF OTHER SERUM ENZYMES Status: Acute Priority: High Current Visit: Yes (4) Chronic low back pain without sciatica SNOMED Code(s): 317024403 ICD Code: M54.5 - LOW BACK PAIN; G89.29 - OTHER CHRONIC PAIN Status: Chronic Priority: Medium Current Visit: Yes Qualifiers: Back pain laterality: unspecified Qualified Code(s): M54.5 - Low back pain ; G89.29 - Other chronic pain; G89.29 - Other chronic pain (5) Anxiety and depression SNOMED Code(s): 680217280 ICD Code: F41.8 - OTHER SPECIFIED ANXIETY DISORDERS Status: Chronic Priority: High Current Visit: Yes (6) Naproxen overdose SNOMED Code(s): 413857476 ICD Code: T39.311A - POISONING BY PROPIONIC ACID DERIVATIVES, ACCIDENTAL, INIT Status: Acute Priority: High Current Visit: Yes Qualifiers: Encounter type: initial encounter (7) Aspirin overdose SNOMED Code(s): 608951579 ICD Code: T39.011A - POISONING BY ASPIRIN, ACCIDENTAL (UNINTENTIONAL), INIT Status: Acute Priority: High Current Visit: Yes Qualifiers: Encounter type: initial encounter - Patient Summary/Data Operative Procedure(s) Performed: None Complications: None Consults: None Labs Pending at D/C: None Recommended Follow-up Testing/Procedures: Follow up/establish care with a PCP after discharge from inpatient rehab. Avoid alcohol, benzo's, narcotic medications. Recommend smoking cessation- [facility] Quit [facility] offers free services and products for assistance with smoking cessation; call 2-047-EHSHUQI for information. Planned Operative Procedure(s) after DC: None Hospital Course: As above - Patient Instructions Diet: Heart Healthy Diet, Drink 8-10+ Glasses/Day, No Alcoholic Beverages Activity: As Tolerated Driving: Do Not Drive Notify Provider of: Fever, Increased Pain, Nausea and/or Vomiting - Discharge Plan Prescriptions/Med Rec: Folic Acid 1 mg PO DAILY #30 tablet Nicotine [Habitrol] 21 mg TRDERM DAILY #30 patch Pantoprazole [ProTONIX] 40 mg PO BIDMEALS #60 tab.cr QUEtiapine [SEROquel] 25 mg PO BEDTIME #30 tablet Sucralfate [Carafate] 1 gm PO QID #60 tablet Thiamine [Vitamin B-1] 100 mg PO BEDTIME #30 tablet Home Medications: Home Meds Venlafaxine HCl [Venlafaxine ER] 150 mg PO DAILY 10/10/16 [History] Folic Acid 1 mg PO DAILY #30 tablet 03/03/17 [Rx] Nicotine [Habitrol] 21 mg TRDERM DAILY #30 patch 03/03/17 [Rx] Pantoprazole [ProTONIX] 40 mg PO BIDMEALS #60 tab.cr 03/03/17 [Rx] QUEtiapine [SEROquel] 25 mg PO BEDTIME #30 tablet 03/03/17 [Rx] Sucralfate [Carafate] 1 gm PO QID #60 tablet 03/03/17 [Rx] Thiamine [Vitamin B-1] 100 mg PO BEDTIME #30 tablet 03/03/17 [Rx] Patient Handouts: Smoking Cessation, Tips for Success, [id number], No-harm Safety Contract, Suicidal Feelings: How to Help Yourself, Aspirin Overdose, Drug Overdose Forms: ED Department Discharge Referrals: PCP,Not In Area [Primary Care Provider] - - Discharge Summary/Plan Comment DC Time >30 min.: Yes (40 min) - General Info Date of Service: 03/03/17 Admission Dx/Problem (Free Text: Alcohol withdrawl Functional Status: Reports: Pain Controlled (chronic LBP), Tolerating Diet, Ambulating, Urinating. Denies: New Symptoms - Review of Systems General: Reports: No Symptoms HEENT: Reports: No Symptoms Pulmonary: Reports: No Symptoms Cardiovascular: Reports: No Symptoms Gastrointestinal: Reports: No Symptoms Genitourinary: Reports: No Symptoms Musculoskeletal: Reports: No Symptoms Skin: Reports: No Symptoms Neurological: Reports: No Symptoms Psychiatric: Reports: No Symptoms - Patient Data Vitals - Most Recent: Last Vital Signs Temp 97.0 F 03/03/17 04:00 Pulse 90 02/28/17 16:00 Resp 20 03/03/17 04:00 BP 138/80 03/03/17 04:00 Pulse Ox 98 03/03/17 04:00 Weight - Most Recent: 225 lb 4.8 oz I&O - Last 24 hours: Intake & Output 03/02/17 03/03/17 03/03/17 22:59 06:59 14:59 Intake Total 1300 250 Output Total 1950 Balance -650 250 Med Orders - Current: Current Medications Acetaminophen (Tylenol) 650 mg PO Q4H PRN PRN Reason: Pain Last Admin: 03/02/17 09:23 Dose: 650 mg Chlordiazepoxide HCl (Librium) 25 mg PO TID [facility] Last Admin: 03/03/17 08:33 Dose: 25 mg Enoxaparin Sodium (Lovenox) 40 mg SUBCUT DAILY [facility] Last Admin: 03/03/17 08:33 Dose: 40 mg Folic Acid (Folic Acid) 1 mg PO DAILY [facility] Last Admin: 03/03/17 08:33 Dose: 1 mg Hydralazine HCl (Apresoline) 10 mg IVPUSH Q4H PRN PRN Reason: Hypertension Last Admin: 02/28/17 12:42 Dose: 10 mg Lorazepam (Ativan) 0 mg IVPUSH Q1H PRN; Protocol PRN Reason: Withdrawl Last Admin: 03/02/17 03:49 Dose: 1 mg Lorazepam (Ativan) 2 mg PO Q6H PRN PRN Reason: Anxiety Last Admin: 03/03/17 06:13 Dose: 2 mg Nicotine (Habitrol) 21 mg TRDERM DAILY [facility] Last Admin: 03/03/17 08:33 Dose: Not Given Ondansetron HCl (Zofran) 4 mg IVPUSH Q8H PRN PRN Reason: Nausea/Vomiting Oxycodone/Acetaminophen (Percocet 325-5 Mg) 1 tab PO Q6H PRN PRN Reason: PAIN Last Admin: 03/03/17 06:13 Dose: 1 tab Pantoprazole Sodium (Protonix) 40 mg PO BIDMEALS [facility] Last Admin: 03/03/17 06:12 Dose: 40 mg Quetiapine Fumarate (Seroquel) 25 mg PO BEDTIME [facility] Last Admin: 03/02/17 21:11 Dose: 25 mg Sodium Chloride (Saline Flush) 10 ml FLUSH ASDIRECTED PRN PRN Reason: Keep Vein Open Last Admin: 02/27/17 15:48 Dose: 10 ml Sucralfate (Carafate) 1 gm PO QID [facility] Last Admin: 03/03/17 08:33 Dose: 1 gm Thiamine HCl (Vitamin B-1) 100 mg PO BEDTIME [facility] Last Admin: 03/02/17 21:11 Dose: 100 mg Venlafaxine HCl (Effexor Xr) 150 mg PO DAILY [facility] Last Admin: 03/03/17 08:33 Dose: 150 mg Discontinued Medications Chlordiazepoxide HCl (Librium) 10 mg PO TID [facility] Last Admin: 02/27/17 22:07 Dose: Not Given Chlordiazepoxide HCl (Librium) 10 mg PO BID [facility] Hydromorphone HCl (Dilaudid) 0.5 mg IVPUSH Q3H PRN PRN Reason: Pain Last Admin: 03/01/17 10:27 Dose: 0.5 mg Sodium Chloride (Normal Saline) 1,000 mls @ 125 mls/hr IV ASDIRECTED [facility] Last Admin: 02/27/17 14:27 Dose: 125 mls/hr Lactated Ringer's (Ringers, Lactated) 1,000 mls @ 150 mls/hr IV ASDIRECTED [facility] Stop: 02/28/17 05:29 Last Admin: 02/28/17 01:00 Dose: 150 mls/hr Lactated Ringer's (Ringers, Lactated) 1,000 mls @ 100 mls/hr IV ASDIRECTED [facility] Last Admin: 03/01/17 05:43 Dose: 100 mls/hr Lorazepam (Ativan) 2 mg IVPUSH ONETIME ONE Stop: 02/27/17 16:36 Last Admin: 02/27/17 17:03 Dose: 2 mg Lorazepam (Ativan) 2 mg IVPUSH Q6H PRN PRN Reason: Anxiety Last Admin: 03/02/17 06:20 Dose: 2 mg Ondansetron HCl (Zofran) 4 mg IVPUSH ONETIME ONE Stop: 02/27/17 13:22 Last Admin: 02/27/17 14:17 Dose: 4 mg Pantoprazole Sodium (Protonix) [facility] Last Admin: 02/28/17 06:06 Dose: 40 mg Pantoprazole Sodium (Protonix Iv) 40 mg IVPUSH BID [facility] Last Admin: 03/01/17 09:07 Dose: 40 mg Temazepam (Restoril) 15 mg PO BEDTIME PRN PRN Reason: Sleep - Exam Quality Assessment: Reports: DVT Prophylaxis General: Reports: Alert, Oriented, Cooperative, No Acute Distress HEENT: Reports: Pupils Equal, EOMI, Mucous Membr. Moist/[place] Lungs: Reports: Normal Respiratory Effort Cardiovascular: Reports: Regular Rate, Regular Rhythm (Female) Exam: Deferred Rectal (Female) Exam: Deferred Neurological: Reports: No New Focal Deficit Psy/Mental Status: Reports: Alert, Normal Affect, Normal Mood *Q Meaningful Use (DIS) - VTE *Q VTE Criteria *Q: - Stroke *Q Stroke Criteria *Q: - AMI *Q AMI Criteria *Q:
[2017-03-03 10:01] VITALS: BP 138/86
[2017-03-03] MEDS: Acetaminophen 325 MG Tab PO PRN (12:26)
== END 2017-03-03 12:31 | disposition home or self-care (01) | DRG 918 ==
LOC: JD.ED 12:52 → OBSVTOIN 15:55 → JD.ICU 15:55 → OBSVTOIN 03-01 11:22 → INTOOBSV 03-01 11:22 → UNDODISIN 03-03 12:31
PROVIDERS: ADMIT Internal Medicine Cardiovascular Disease; ATTEND Internal Medicine Cardiovascular Disease
DX: T39.012A Poisoning by aspirin, intentional self-harm, initial encounter (principal); F10.239 Alcohol dependence with withdrawal, unspecified; F11.20 Opioid dependence, uncomplicated; T39.312A Poisoning by propionic acid derivatives, intentional self-harm, initial encounter; Y90.1 Blood alcohol level of 20-39 mg/100 ml; Z88.2 Allergy status to sulfonamides; Z88.8 Allergy status to other drugs, medicaments and biological substances; E78.00 Pure hypercholesterolemia, unspecified; H54.7 Unspecified visual loss; F17.210 Nicotine dependence, cigarettes, uncomplicated; F19.10 Other psychoactive substance abuse, uncomplicated; R10.9 Unspecified abdominal pain; F10.229 Alcohol dependence with intoxication, unspecified; E66.9 Obesity, unspecified; K21.9 Gastro-esophageal reflux disease without esophagitis; R74.8 Abnormal levels of other serum enzymes; M54.5 Low back pain; F41.8 Other specified anxiety disorders; Z79.899 Other long term (current) drug therapy
CPT/HCPCS: 36415; 70450; 70450-26; 80048; 80053; 80306; 81001; 83735; 85025; 86140; 93005; 96361; 96374; 99284-25; 99285-25; A9270-GY; C9113; G0480; J0360; J1170; J1650; J2060; J2405; J7040; J7050; J7120

== ENCOUNTER 2017-06-13 09:33 | Emergency (ER) | payer MEDICAID ==
[2017-06-13 10:18] VITALS: BP 126/82
--- NOTE | 2017-06-13 10:58 | EDM.PDOC ---
ED HPI GENERAL MEDICAL PROBLEM - General Chief Complaint: Abdominal Pain Stated Complaint: SEVERE PELVIC PAIN Time Seen by Provider: 06/13/17 10:51 Source of Information: Reports: Patient History Limitations: Reports: No Limitations - History of Present Illness INITIAL COMMENTS - FREE TEXT/NARRATIVE: 51 y/o F with sharp lower abdominal pain and a few episodes of urinary incontinence. Has hx of prior hysterectomy/oopharectomy/appendectomy/ cholecystectomy. States the discomfort is constant, started a few days ago, worsening. She has a history of prior episodes of incontinence and has a bladder stimulator. She's had several episodes of incontinence over night. No fever. Mild nausea, no vomiting. Has chronic back pain, no change in this. No difficulty walking/weakness. Right Pelvic Pain Score (Numeric/FACES): 8 - Related Data Allergies Allergy/AdvReac Type Severity Reaction Status Date / Time ibuprofen Allergy Itching Verified 06/13/17 10:18 ketorolac tromethamine Allergy Rash Verified 06/13/17 10:18 [From Toradol] naproxen Allergy Itching Verified 06/13/17 10:18 Sulfa (Sulfonamide Allergy Rash Verified 06/13/17 10:18 Antibiotics) sumatriptan [From Imitrex] Allergy Anaphylactic Verified 06/13/17 10:18 Shock sumatriptan succinate Allergy Anaphylactic Verified 06/13/17 10:18 [From Imitrex] Shock tramadol Allergy Rash Verified 06/13/17 10:18 diphenhydramine HCl AdvReac Headache Verified 06/13/17 10:18 [From Benadryl] MSG Allergy Anxiety Uncoded 02/27/17 13:07 Home Meds: Home Meds Cephalexin 500 mg PO QID #40 tablet 06/13/17 [Rx] Phenazopyridine [Pyridium] 100 mg PO TID PRN #15 tab 06/13/17 [Rx] Past Medical History HEENT History: Reports: Impaired Vision Other HEENT History: wears corrective lenses Cardiovascular History: Reports: High Cholesterol Respiratory History: Reports: Other (See Below) Other Respiratory History: restrictive airway Gastrointestinal History: Reports: Gastritis, GERD Other Gastrointestinal History: esophageal stricture, abdominal pain lowere, Genitourinary History: Reports: Urinary Incontinence Other Genitourinary History: 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: Musculoskeletal History: Reports: Back Pain, Chronic Neurological History: Reports: CVA, Migraines, Seizure, Other (See Below) Other Neuro History: patient reports "nervous tics" Psychiatric History: Reports: Addiction, Anxiety, Depression, Suicide Attempt Other Psychiatric History: drug overdose, personality disorder, alcohol withdrawal Endocrine/Metabolic History: Reports: Obesity/BMI 30+ Dermatologic History: Reports: Other (See Below) Other Dermatologic History: skin lesion - Infectious Disease History Infectious Disease History: Reports: Chicken Pox - Past Surgical History GI Surgical History: Reports: Appendectomy, Cholecystectomy, EGD Female Surgical History: Reports: Hysterectomy, Salpingo-Oophorectomy, Tubal Ligation, Other (See Below) Other Female Surgeries/Procedures: bladder stimulator Social & Family History - Family History Family Medical History: Noncontributory Cardiac: Reports: Bypass, CAD, Heart Failure - Tobacco Use Smoking Status *Q: Current Every Day Smoker Years of Tobacco use: 35 Packs/Tins Daily: 0.5 Used Tobacco, but Quit: No Month/Year Tobacco Last Used: 6 Second Hand Smoke Exposure: Yes - Caffeine Use Caffeine Use: Reports: Coffee - Alcohol Use Days Per Week of Alcohol Use: 7 Number of Drinks Per Day: 5 Total Drinks Per Week: 35 - Recreational Drug Use Recreational Drug Use: No Drug Use in Last 12 Months: Yes Recreational Drug Type: Reports: Fentanyl, Marijuana/Hashish, Methamphetamine Recreational Drug Use Frequency: Not Used In Over 5 Months - Living Situation & Occupation Living situation: Reports: , Other (with ex-) Occupation: Employed ([employer]) ED ROS GENERAL - Review of Systems Review Of Systems: See Below Constitutional: Denies: Fever Respiratory: Denies: Shortness of Breath, Cough Cardiovascular: Denies: Chest Pain GI/Abdominal: Reports: Abdominal Pain : Reports: Frequency, Urgency. Denies: Flank Pain Musculoskeletal: Reports: No Symptoms Skin: Reports: No Symptoms Neurological: Denies: Difficulty Walking ED EXAM, RENAL/ - Physical Exam Exam: See Below Exam Limited By: No Limitations General Appearance: Alert, WD/WN, No Apparent Distress Eye Exam: Bilateral Eye: Normal Inspection Ears: Normal External Exam Nose: Normal Inspection Throat/Mouth: Normal Inspection, Normal Voice, No Airway Compromise Head: Atraumatic, Normocephalic Neck: Normal Inspection, Supple Respiratory/Chest: No Respiratory Distress, Lungs Clear, Normal Breath Sounds, Chest Non-Tender Cardiovascular: Normal Peripheral Pulses, Regular Rate, Rhythm, No Edema, No Murmur GI/Abdominal: Soft, Other (+suprapubic TTP, no rebound/guarding, no additional TTP) Back Exam: Normal Inspection. No: CVA Tenderness (L), CVA Tenderness (R) Extremities: Normal Inspection Neurological: Alert, Oriented, Normal Cognition Psychiatric: Normal Affect, Normal Mood Skin Exam: Warm, Dry, Intact, Normal Color, No Rash Course - Vital Signs Last Recorded V/S: Last Vital Signs Temp 36.8 C 06/13/17 10:09 Pulse 95 06/13/17 10:09 Resp 18 06/13/17 10:09 BP 126/82 06/13/17 10:09 Pulse Ox 100 06/13/17 10:09 - Orders/Labs/Meds Labs: Laboratory Tests 06/13/17 Range/Units 11:15 Urine Color Yellow (Yellow) Urine Appearance Slt cloudy H (Clear) Urine pH 6.0 (5.0-8.0) Ur Specific [place] > or = 1.030 (1.005-1.030) Urine Protein Negative (Negative) Urine Glucose (UA) Negative (Negative) Urine Ketones 1+ H (Negative) Urine Occult Blood Negative (Negative) Urine Nitrite Positive H (Negative) Urine Bilirubin Negative (Negative) Urine Urobilinogen 0.2 (0.2-1.0) Ur Leukocyte Esterase Negative (Negative) Urine RBC Not seen (0-5) /hpf Urine WBC 0-5 (0-5) /hpf Ur Epithelial Cells 0-5 (0-5) /hpf Urine Bacteria Moderate H (FEW) /hpf Urine Mucus Few (FEW) /hpf Meds: Medications Discontinued Medications Generic Name Dose Route Start Last Admin Trade Name Freq PRN Reason Stop Dose Admin Cephalexin 500 mg 06/13/17 11:32 Keflex PO 06/13/17 11:33 ONETIME ONE Sodium Chloride 1,000 mls @ 1,000 mls/hr 06/13/17 11:31 Normal Saline IV 06/13/17 12:30 ONETIME ONE Ondansetron HCl 4 mg 06/13/17 11:31 Zofran IVPUSH 06/13/17 11:32 ONETIME ONE Phenazopyridine HCl 95 mg 06/13/17 13:00 Urinary Pain Relief PO [facility] Phenazopyridine HCl 95 mg 06/13/17 11:03 06/13/17 11:15 Urinary Pain Relief PO 06/13/17 11:04 95 mg ONETIME ONE Administration - Re-Assessments/Exams Free Text/Narrative Re-Assessment/Exam: 06/13/17 12:14 UA c/w cystitis, will treat. Advised her to f/u with PCP if incontinence isn't improving after treatment of UTI. Departure - Departure Time of Disposition: 11:34 Disposition: Home, Self-Care 01 Clinical Impression: Cystitis - Discharge Information Prescriptions: Cephalexin 500 mg PO QID #40 tablet Phenazopyridine [Pyridium] 100 mg PO TID PRN #15 tab PRN Reason: bladder pain Instructions: Interstitial Cystitis Referrals: Cnadida Limon PA [Primary Care Provider] - Forms: ED Department Discharge Additional Instructions: 1. Take pyridium as needed for lower abdominal pains 2. Take antibiotic as prescribed 3. Follow up with your regular provider this week if you continue to have pain 4. Return to the ED if you have fever with temp 101 or higher, vomiting and not keeping liquids/antibiotics down, or worsening pain
[2017-06-13] MEDS ORDERED: Phenazopyridine 95 MG Tab PO ONE (11:03)
[2017-06-13] MEDS ORDERED: Sodium Chloride 0.9% 1,000 ML IV ONE (11:31)
[2017-06-13] MEDS ORDERED: Ondansetron 4 MG/2 ML SDV IVPUSH ONE (11:31)
[2017-06-13] MEDS ORDERED: Cephalexin 500 MG Cap PO ONE (11:32)
[2017-06-13] MEDS ORDERED: Phenazopyridine 95 MG Tab PO SCH (13:00)
== END 2017-06-13 11:50 | disposition home or self-care (01) ==
LOC: JD.ED 09:33
DX: N30.90 Cystitis, unspecified without hematuria (principal); E78.00 Pure hypercholesterolemia, unspecified; K21.9 Gastro-esophageal reflux disease without esophagitis; J45.909 Unspecified asthma, uncomplicated; F41.9 Anxiety disorder, unspecified; F32.9 Major depressive disorder, single episode, unspecified; E66.9 Obesity, unspecified; F17.210 Nicotine dependence, cigarettes, uncomplicated; Z88.6 Allergy status to analgesic agent; Z88.8 Allergy status to other drugs, medicaments and biological substances; Z88.5 Allergy status to narcotic agent; Z88.2 Allergy status to sulfonamides; Z86.73 Personal history of transient ischemic attack (TIA), and cerebral infarction without residual deficits; Z90.49 Acquired absence of other specified parts of digestive tract; Z90.710 Acquired absence of both cervix and uterus; Z68.28 Body mass index [BMI] 28.0-28.9, adult
CPT/HCPCS: 81001; 99284; A9270

== ENCOUNTER 2017-06-16 07:31 | Emergency (ER) | payer SELFPAY ==
[2017-06-16 07:49] VITALS: BP 117/87
[2017-06-16] MEDS ORDERED: Acetaminophen 325 MG Tab PO ONE (08:01)
--- NOTE | 2017-06-16 08:41 | EDM.PDOC ---
ED HPI GENERAL MEDICAL PROBLEM - General Chief Complaint: Respiratory Problem Stated Complaint: RESPIRATORY ISSUES Time Seen by Provider: 06/16/17 07:52 Source of Information: Reports: Patient History Limitations: Reports: No Limitations - History of Present Illness INITIAL COMMENTS - FREE TEXT/NARRATIVE: The patient presents with a cough, congestion, runny nose, sore throat and fever. This all started a few days ago. She also has a headache and body aches. She has no chest pain or shortness of breath. Onset: Gradual Duration: Day(s): Severity: Moderate Improves with: Reports: None Worsens with: Reports: None Associated Symptoms: Reports: Cough, Fever/Chills, Headaches. Denies: Chest Pain, Nausea/Vomiting, Shortness of Breath Generalized Pain Score (Numeric/FACES): 8 - Related Data Allergies Allergy/AdvReac Type Severity Reaction Status Date / Time ibuprofen Allergy Itching Verified 06/16/17 07:49 ketorolac tromethamine Allergy Rash Verified 06/16/17 07:49 [From Toradol] naproxen Allergy Itching Verified 06/16/17 07:49 Sulfa (Sulfonamide Allergy Rash Verified 06/16/17 07:49 Antibiotics) sumatriptan [From Imitrex] Allergy Anaphylactic Verified 06/16/17 07:49 Shock sumatriptan succinate Allergy Anaphylactic Verified 06/16/17 07:49 [From Imitrex] Shock tramadol Allergy Rash Verified 06/16/17 07:49 diphenhydramine HCl AdvReac Headache Verified 06/16/17 07:49 [From Benadryl] MSG Allergy Anxiety Uncoded 02/27/17 13:07 Home Meds: Home Meds Phenazopyridine [Pyridium] 100 mg PO TID PRN #15 tab 06/13/17 [Rx] Past Medical History HEENT History: Reports: Impaired Vision Other HEENT History: wears corrective lenses Cardiovascular History: Reports: High Cholesterol Respiratory History: Reports: Other (See Below) Other Respiratory History: restrictive airway Gastrointestinal History: Reports: Gastritis, GERD Other Gastrointestinal History: esophageal stricture, abdominal pain lowere, Genitourinary History: Reports: Urinary Incontinence Other Genitourinary History: 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: Musculoskeletal History: Reports: Back Pain, Chronic Neurological History: Reports: CVA, Migraines, Seizure, Other (See Below) Other Neuro History: patient reports "nervous tics" Psychiatric History: Reports: Addiction, Anxiety, Depression, Suicide Attempt Other Psychiatric History: drug overdose, personality disorder, alcohol withdrawal Endocrine/Metabolic History: Reports: Obesity/BMI 30+ Dermatologic History: Reports: Other (See Below) Other Dermatologic History: skin lesion - Infectious Disease History Infectious Disease History: Reports: Chicken Pox - Past Surgical History GI Surgical History: Reports: Appendectomy, Cholecystectomy, EGD Female Surgical History: Reports: Hysterectomy, Salpingo-Oophorectomy, Tubal Ligation, Other (See Below) Other Female Surgeries/Procedures: bladder stimulator Social & Family History - Family History Family Medical History: Noncontributory Cardiac: Reports: Bypass, CAD, Heart Failure - Tobacco Use Smoking Status *Q: Current Every Day Smoker Years of Tobacco use: 20 Packs/Tins Daily: 0.1 Used Tobacco, but Quit: No Month/Year Tobacco Last Used: 6 Second Hand Smoke Exposure: Yes - Caffeine Use Caffeine Use: Reports: Coffee - Alcohol Use Days Per Week of Alcohol Use: 7 Number of Drinks Per Day: 5 Total Drinks Per Week: 35 - Recreational Drug Use Recreational Drug Use: No Drug Use in Last 12 Months: Yes Recreational Drug Type: Reports: Fentanyl, Marijuana/Hashish, Methamphetamine Recreational Drug Use Frequency: Not Used In Over 5 Months - Living Situation & Occupation Living situation: Reports: , Other (with ex-) Occupation: Employed ([employer]) ED ROS GENERAL - Review of Systems Review Of Systems: See Below Constitutional: Reports: Fever, Chills, Malaise, Weakness, Fatigue HEENT: Reports: Throat Pain, Other (Congestion and runny nose) Respiratory: Reports: Cough Cardiovascular: Reports: No Symptoms Endocrine: Reports: No Symptoms GI/Abdominal: Reports: No Symptoms : Reports: No Symptoms Musculoskeletal: Reports: No Symptoms Skin: Reports: No Symptoms ED EXAM, GENERAL - Physical Exam Exam: See Below Exam Limited By: No Limitations General Appearance: Alert, No Apparent Distress Ears: Normal External Exam Nose: Normal Inspection Throat/Mouth: Other (mild erythema) Head: Atraumatic, Normocephalic Neck: Normal Inspection Respiratory/Chest: No Respiratory Distress, Lungs Clear, Normal Breath Sounds Cardiovascular: Regular Rate, Rhythm, No Edema, No Murmur GI/Abdominal: Soft, Non-Tender, No Organomegaly, No Mass Back Exam: Normal Inspection Extremities: Normal Inspection Neurological: Alert, Oriented, No Motor/Sensory Deficits Course - Vital Signs Last Recorded V/S: Last Vital Signs Temp 97.5 F 06/16/17 07:45 Pulse 101 H 06/16/17 07:45 Resp 16 06/16/17 07:45 BP 117/87 06/16/17 07:45 Pulse Ox 97 06/16/17 07:45 - Orders/Labs/Meds Orders: Active Orders 24 hr Category Date Time Status CULTURE STREP A CONFIRMATION [RM] Stat Lab 06/16/17 08:58 Results STREP SCRN A RAPID W CULT CONF [RM] Stat Lab 06/16/17 08:58 Results Meds: Medications Discontinued Medications Generic Name Dose Route Start Last Admin Trade Name Ashvin PRN Reason Stop Dose Admin Acetaminophen 975 mg 06/16/17 08:01 06/16/17 08:39 Tylenol PO 06/16/17 08:02 975 mg NOW ONE Administration - Re-Assessments/Exams Free Text/Narrative Re-Assessment/Exam: 06/16/17 08:41 I ordered a CXR, influenza and rapid strep. Her CXR looks good. 06/16/17 09:44 Her strep and influenza are negative. This looks like a URI. I will discharge her home. Departure - Departure Time of Disposition: 09:45 Disposition: Home, Self-Care 01 Condition: Good Clinical Impression: Viral upper respiratory illness - Discharge Information Referrals: Candida Limon PA [Primary Care Provider] - 1 Week Forms: ED Department Discharge Additional Instructions: Drink plenty of fluids. Take tylenol for any fever or pain. Follow up with Candida Limon if you are not better in 1 week. - My Orders Last 24 Hours: My Active Orders 06/16/17 08:58 CULTURE STREP A CONFIRMATION [RM] Stat STREP SCRN A RAPID W CULT CONF [RM] Stat - Assessment/Plan Last 24 Hours: My Active Orders 06/16/17 08:58 CULTURE STREP A CONFIRMATION [RM] Stat STREP SCRN A RAPID W CULT CONF [RM] Stat
--- NOTE | 2017-06-16 09:04 | CR ---
Chest: Two views of the chest were obtained. Comparison: Prior chest x-ray 09/15/16. Heart size and mediastinum are normal. Slight parenchymal density is noted within the lateral left costophrenic angle. Lungs otherwise are clear. Bony structures appear within normal limits for the patient's age. Surgical clips are seen within the upper abdomen. Impression: 1. Minimal parenchymal density within the lateral left costophrenic angle most likely due to small area of atelectasis. Nothing acute is otherwise seen on two-view chest x-ray. Diagnostic code #2
== END 2017-06-16 09:53 | disposition home or self-care (01) ==
LOC: JD.ED 07:31
DX: J06.9 Acute upper respiratory infection, unspecified (principal); E78.00 Pure hypercholesterolemia, unspecified; K21.9 Gastro-esophageal reflux disease without esophagitis; F17.210 Nicotine dependence, cigarettes, uncomplicated; Z88.8 Allergy status to other drugs, medicaments and biological substances; Z88.2 Allergy status to sulfonamides; Z88.5 Allergy status to narcotic agent
CPT/HCPCS: 71046; 87081; 87430; 87804; 99284; A9270; 99282

== ENCOUNTER 2017-06-23 13:09 | Emergency (ER) | payer SELFPAY ==
[2017-06-23 13:22] VITALS: BP 141/107
--- NOTE | 2017-06-23 13:37 | EDM.PDOC ---
ED HPI GENERAL MEDICAL PROBLEM - General Chief Complaint: Back Pain or Injury Stated Complaint: BACK PAIN Time Seen by Provider: 06/23/17 13:31 Source of Information: Reports: Patient History Limitations: Reports: No Limitations - History of Present Illness INITIAL COMMENTS - FREE TEXT/NARRATIVE: 51-year-old female attends the ED with an acute exacerbation of her chronic low back pain. She states pain is strongly lancinating shooting down the posterior aspect of her right thigh to the foot. Pain has a strong neurogenic component to it. Previous CT done last October did not reveal any nerve root entrapment at that time did reveal diffuse disc bulge and degenerative arthritis in the facet joints. Patient has a bladder stimulator in place and it is concerning at this point time whether or not it is irritating the sciatic nerve and contributing to her current pain. Therefore she is looking at having the bladder stimulator removed since it's not helping the urinary incontinence at any rate. Patient has been set up for physiotherapy program around July 08. She comes to the ED primarily seeking pain management. Onset: Other (Chronic problem with acute flare.) Duration: Chronic Location: Reports: Back (Low back pain with radicular pain to the right buttock and posterior thigh in the L5 nerve root distribution) Quality: Reports: Ache, Burning, Throbbing, Other (Pain is sharp stabbing lancinating.) Severity: Severe (Current pain is 9 out of 10.) Improves with: Reports: Rest Worsens with: Reports: Movement Context: Denies: Activity (Particularly prolonged standing.), Exercise, Lifting , Sick Contact, Trauma, Other Associated Symptoms: Denies: No Other Symptoms, Confusion, Chest Pain, Cough, cough w sputum, Diaphoresis, Fever/Chills, Headaches, Loss of Appetite, Malaise , Nausea/Vomiting 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) Back Pain Score (Numeric/FACES): 9 - Related Data Allergies Allergy/AdvReac Type Severity Reaction Status Date / Time ibuprofen Allergy Itching Verified 06/23/17 13:16 ketorolac tromethamine Allergy Rash Verified 06/23/17 13:16 [From Toradol] naproxen Allergy Itching Verified 06/23/17 13:16 Sulfa (Sulfonamide Allergy Rash Verified 06/23/17 13:16 Antibiotics) sumatriptan [From Imitrex] Allergy Anaphylactic Verified 06/23/17 13:16 Shock sumatriptan succinate Allergy Anaphylactic Verified 06/23/17 13:16 [From Imitrex] Shock tramadol Allergy Rash Verified 06/23/17 13:16 diphenhydramine HCl AdvReac Headache Verified 06/23/17 13:16 [From Benadryl] MSG Allergy Anxiety Uncoded 06/23/17 13:16 Home Meds: Home Meds Crum's Wort 300 mg PO DAILY 06/23/17 [History] oxyCODONE HCl/Acetaminophen [Percocet 5-325 mg Tablet] 1 - 2 each PO Q4H PRN # 20 tablet 06/23/17 [Rx] predniSONE [Deltasone] 20 mg PO ASDIRECTED #15 tablet 06/23/17 [Rx] Past Medical History HEENT History: Reports: Impaired Vision Other HEENT History: wears corrective lenses Cardiovascular History: Reports: High Cholesterol Respiratory History: Reports: Other (See Below) Other Respiratory History: restrictive airway Gastrointestinal History: Reports: Gastritis, GERD Other Gastrointestinal History: esophageal stricture, abdominal pain lowere, Genitourinary History: Reports: Urinary Incontinence Other Genitourinary History: implantable device interstim 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: Musculoskeletal History: Reports: Back Pain, Chronic Neurological History: Reports: CVA, Migraines, Seizure, Other (See Below) Other Neuro History: patient reports "nervous tics" Psychiatric History: Reports: Addiction, Anxiety, Depression, Suicide Attempt Other Psychiatric History: drug overdose, personality disorder, alcohol withdrawal Endocrine/Metabolic History: Reports: Obesity/BMI 30+ Dermatologic History: Reports: Other (See Below) Other Dermatologic History: skin lesion - Infectious Disease History Infectious Disease History: Reports: Chicken Pox - Past Surgical History GI Surgical History: Reports: Appendectomy, Cholecystectomy, EGD Female Surgical History: Reports: Hysterectomy, Salpingo-Oophorectomy, Tubal Ligation, Other (See Below) Other Female Surgeries/Procedures: bladder stimulator Social & Family History - Family History Family Medical History: Noncontributory Cardiac: Reports: Bypass, CAD, Heart Failure - Tobacco Use Smoking Status *Q: Current Every Day Smoker Years of Tobacco use: 20 Packs/Tins Daily: 0.1 Used Tobacco, but Quit: No Month/Year Tobacco Last Used: 6 Second Hand Smoke Exposure: Yes - Caffeine Use Caffeine Use: Reports: Coffee - Alcohol Use Days Per Week of Alcohol Use: 7 Number of Drinks Per Day: 5 Total Drinks Per Week: 35 - Recreational Drug Use Recreational Drug Use: No Drug Use in Last 12 Months: Yes Recreational Drug Type: Reports: Fentanyl, Marijuana/Hashish, Methamphetamine Recreational Drug Use Frequency: Not Used In Over 5 Months - Living Situation & Occupation Living situation: Reports: , Other (with ex-) Occupation: Employed ([employer]) ED ROS GENERAL - Review of Systems Review Of Systems: See Below Constitutional: Reports: No Symptoms HEENT: Reports: No Symptoms Respiratory: Reports: No Symptoms Cardiovascular: Reports: No Symptoms Endocrine: Reports: No Symptoms GI/Abdominal: Reports: No Symptoms : Reports: Incontinence (Patient has severe incontinence. She's had bladder sling procedure 3 of Corazon and a bladder stimulator which is no longer helping at all. She's compounding actually having it removed.) Musculoskeletal: Reports: Back Pain ( She has chronic leakage and has to wear protection on all times. back pain primarily right low back rating down the posterior aspect of her right leg in the L5 nerve distribution. ) Skin: Reports: No Symptoms Neurological: Reports: No Symptoms Psychiatric: Reports: No Symptoms Hematologic/Lymphatic: Reports: No Symptoms Immunologic: Reports: No Symptoms ED EXAM,LOWER BACK PAIN/INJURY - Physical Exam Exam: See Below Exam Limited By: No Limitations General Appearance: Alert, WD/WN, Moderate Distress Back Exam: Other (Patient has pain well localized to the L5-S1 facet joint on the right side with overlying muscle spasm from L1-L5. There is marked pain throughout the entire right sacroiliac joint as compared to the left.) Extremities: Normal Inspection, Normal Range of Motion, Non-Tender, No Pedal Edema Neurological: Alert, Normal Mood/Affect, Normal Dorsiflexion, CN II-XII Intact Psychiatric: Normal Affect, Normal Mood Skin Exam: Warm, Dry, Intact, No Rash Course - Vital Signs Last Recorded V/S: Last Vital Signs Temp 36.0 C 06/23/17 13:17 Pulse 95 06/23/17 13:17 Resp 17 06/23/17 13:17 BP 141/107 H 06/23/17 13:17 Pulse Ox 97 06/23/17 13:17 - Orders/Labs/Meds Meds: Medications Discontinued Medications Generic Name Dose Route Start Last Admin Trade Name Freq PRN Reason Stop Dose Admin Meperidine HCl 75 mg 06/23/17 13:32 Demerol IM 06/23/17 13:33 ONETIME ONE Promethazine HCl 12.5 mg 06/23/17 13:33 Phenergan IM 06/23/17 13:34 ONETIME ONE - Radiology Interpretation Free Text/Narrative:: 51-year-old female presents to the ED with an acute exacerbation of chronic low back pain. Recently the pain is become more lancinating and severe shooting down the posterior aspect of her right leg in the L5 nerve root distribution. Previous CT did not demonstrate any neural foraminal encroachment. She does have degenerative disc disease and degenerative arthritis in her back. Clinically she has facet joint inflammation at L5-S1 today and marked inflammation of the right sacroiliac joint. The concern is whether or not her bladder stimulator might be irritating the sciatic nerve has come to light. She is complaining having the stimulator removed as is no longer helping with urinary incontinence at any rate. She certainly had no signs of this surgical lower back problem when seen in October last year. Plan I am injection of Demerol 75 mg with 12.5 mg of Phenergan IM. She'll be discharged on Percocet 07/29 one or 2 every 4-6 hours no safe for pain relief 20 tabs. And is on 20 mg a.m. and p.m. for 5 days then once in the morning only for another 5 days to relieve inflammation. Patient is already on a chronic anti-inflammatory regime. Departure - Departure Time of Disposition: 13:33 Disposition: Home, Self-Care 01 Condition: Fair Clinical Impression: Acute exacerbation of chronic low back pain - Discharge Information Prescriptions: oxyCODONE HCl/Acetaminophen [Percocet 5-325 mg Tablet] 1 - 2 each PO Q4H PRN # 20 tablet PRN Reason: pain relief. predniSONE [Deltasone] 20 mg PO ASDIRECTED #15 tablet Referrals: Candida Limon PA [Primary Care Provider] - Forms: ED Department Discharge Additional Instructions: Evaluation the emergency room today in regards to acute exacerbation of chronic low back pain. Known to have disease diffuse degenerative disc and arthritic changes in your lower back. On the last CT scan done last October no definitive nerve root entrapment was identified by disc herniation. A large amount of the pain appears to be coming from the sacroiliac joint in the right buttock but as you have discussed with urology your bladder stimulator may be irritating the nerve and causing the pain as well. Examination reveals point tenderness over the L5-S1 facet joint on the right side and marked pain throughout the right sacroiliac joint as compared to the left. Suggest treatment to be prednisone 20 mg with breakfast and supper for 5 days and then 1 in the morning only for another 5 days. Continue Nambutone as previously prescribed. Percocet tabs one or 2 every 4-6 hours needed for pain relief while not at work. Primarily for use at bedtime to help sleep.
[2017-06-23] MEDS: Promethazine 25 MG/ML SDV IM ONE (13:53)
[2017-06-23] MEDS: Meperidine PF 50 MG/ML Syringe IM ONE (13:54)
== END 2017-06-23 14:13 | disposition home or self-care (01) ==
LOC: JD.ED 13:09
DX: G89.29 Other chronic pain (principal); M54.5 Low back pain; E78.00 Pure hypercholesterolemia, unspecified; K21.9 Gastro-esophageal reflux disease without esophagitis; F32.9 Major depressive disorder, single episode, unspecified; F41.9 Anxiety disorder, unspecified; F17.210 Nicotine dependence, cigarettes, uncomplicated; E66.9 Obesity, unspecified; Z88.6 Allergy status to analgesic agent; Z88.2 Allergy status to sulfonamides; Z88.5 Allergy status to narcotic agent; Z88.8 Allergy status to other drugs, medicaments and biological substances; Z79.899 Other long term (current) drug therapy; Z90.49 Acquired absence of other specified parts of digestive tract; Z86.73 Personal history of transient ischemic attack (TIA), and cerebral infarction without residual deficits; Z68.33 Body mass index [BMI] 33.0-33.9, adult
CPT/HCPCS: 96372; 99283; J2175; J2550

== ENCOUNTER 2017-06-30 10:07 | Emergency (ER) | payer SELFPAY ==
[2017-06-30 10:19] VITALS: BP 156/105
[2017-06-30] MEDS ORDERED: Acetaminophen 325 MG Tab PO STA (11:18)
[2017-06-30] MEDS ORDERED: Promethazine 25 MG/ML SDV IM ONE (11:18)
--- NOTE | 2017-06-30 11:21 | EDM.PDOC ---
ED HPI GENERAL MEDICAL PROBLEM - General Chief Complaint: Head Injury Stated Complaint: FALL/HEAD INJURY LAST NIGHT- VOMITING/DIZZY Time Seen by Provider: 06/30/17 11:08 Source of Information: Reports: Patient History Limitations: Reports: No Limitations - History of Present Illness INITIAL COMMENTS - FREE TEXT/NARRATIVE: 51-year-old female presents for evaluation and treatment of head trauma. Reportedly patient was drinking alcohol last night. She states that she had 4 or 5 mixed drinks. Reports that she was walking down the espinal when she became dizzy and fell down. Fell onto carpeted floor. Reports pain in her posterior left scalp on the ground. She believes she lost consciousness after the fall. States that ambulance was called but she was not transported to the ER. She went to bed and woke up this morning and vomited several times. She is currently complaining of a headache, neck pain, nausea, vomiting, confusion, fatigue and dizziness. She states she's had over 15 episodes of emesis today. She states that she went to work today and she became very diaphoretic and felt dizzy therefore she decided to present to the ER. She states that she cannot balance or stand due to the dizziness. No chest pain, shortness of breath, abdominal pain, bloody noses, loose or missing teeth. Patient is not on any blood thinners. No medication prior to arrival in the ER. Location: Reports: Head, Neck - Related Data Allergies Allergy/AdvReac Type Severity Reaction Status Date / Time ibuprofen Allergy Itching Verified 06/30/17 10:18 ketorolac tromethamine Allergy Rash Verified 06/30/17 10:18 [From Toradol] naproxen Allergy Itching Verified 06/30/17 10:18 Sulfa (Sulfonamide Allergy Rash Verified 06/30/17 10:18 Antibiotics) sumatriptan [From Imitrex] Allergy Anaphylactic Verified 06/30/17 10:18 Shock sumatriptan succinate Allergy Anaphylactic Verified 06/30/17 10:18 [From Imitrex] Shock tramadol Allergy Rash Verified 06/30/17 10:18 diphenhydramine HCl AdvReac Headache Verified 06/30/17 10:18 [From Benadryl] MSG Allergy Anxiety Uncoded 06/30/17 10:18 Home Meds: Home Meds Laura's Wort 300 mg PO DAILY 06/23/17 [History] oxyCODONE HCl/Acetaminophen [Percocet 5-325 mg Tablet] 1 - 2 each PO Q4H PRN # 20 tablet 06/23/17 [Rx] predniSONE [Deltasone] 20 mg PO ASDIRECTED #15 tablet 06/23/17 [Rx] Ondansetron [Zofran ODT] 4 mg PO Q6H PRN #12 tab.dis 06/30/17 [Rx] Past Medical History HEENT History: Reports: Impaired Vision Other HEENT History: wears corrective lenses Cardiovascular History: Reports: High Cholesterol Respiratory History: Reports: Other (See Below) Other Respiratory History: restrictive airway Gastrointestinal History: Reports: Gastritis, GERD Other Gastrointestinal History: esophageal stricture, abdominal pain lower, Genitourinary History: Reports: Urinary Incontinence Other Genitourinary History: implantable device interstim 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: Musculoskeletal History: Reports: Back Pain, Chronic Neurological History: Reports: CVA, Migraines, Seizure, Other (See Below) Other Neuro History: patient reports "nervous tics" Psychiatric History: Reports: Addiction, Anxiety, Depression, Suicide Attempt Other Psychiatric History: drug overdose, personality disorder, alcohol withdrawal Endocrine/Metabolic History: Reports: Obesity/BMI 30+ Dermatologic History: Reports: Other (See Below) Other Dermatologic History: skin lesion - Infectious Disease History Infectious Disease History: Reports: Chicken Pox - Past Surgical History GI Surgical History: Reports: Appendectomy, Cholecystectomy, EGD Female Surgical History: Reports: Hysterectomy, Salpingo-Oophorectomy, Tubal Ligation, Other (See Below) Other Female Surgeries/Procedures: bladder stimulator Social & Family History - Family History Family Medical History: Noncontributory Cardiac: Reports: Bypass, CAD, Heart Failure - Tobacco Use Smoking Status *Q: Current Every Day Smoker Years of Tobacco use: 10 Packs/Tins Daily: 0.5 Used Tobacco, but Quit: No Month/Year Tobacco Last Used: 6 Second Hand Smoke Exposure: Yes - Caffeine Use Caffeine Use: Reports: Coffee - Alcohol Use Days Per Week of Alcohol Use: 7 Number of Drinks Per Day: 5 Total Drinks Per Week: 35 - Recreational Drug Use Recreational Drug Use: No Drug Use in Last 12 Months: Yes Recreational Drug Type: Reports: Fentanyl, Marijuana/Hashish, Methamphetamine Recreational Drug Use Frequency: Not Used In Over 5 Months - Living Situation & Occupation Living situation: Reports: , Other (with ex-) Occupation: Employed ([employer]) ED ROS GENERAL - Review of Systems Review Of Systems: See Below Constitutional: Reports: Diaphoresis HEENT: Denies: Dental Pain, Nosebleed Respiratory: Denies: Shortness of Breath Cardiovascular: Denies: Chest Pain GI/Abdominal: Reports: Nausea, Vomiting. Denies: Abdominal Pain Musculoskeletal: Reports: Neck Pain Neurological: Reports: Headache, Syncope, Difficulty Walking ED EXAM, HEAD INJURY - Physical Exam Exam: See Below Exam Limited By: No Limitations General Appearance: Alert, WD/WN, No Apparent Distress Head: Atraumatic, Normocephalic, Scalp Tenderness (left posterior parietal scalp , significant tenderness to light palpation). No: Scalp Swelling, Scalp Abrasions, Scalp Ecchymosis, Active Bleeding, Valenzuela's Sign, Facial Abrasions, Facial Ecchymosis, Facial Lacerations, Facial Swelling, Raccoon Eyes Nexus Criteria: No: Posterior, Midline Cervical Tenderness, Evidence of Intoxication, Altered Level of Consciousness, Focal Neurological Deficit, Painful Distraction Injuries Eyes: Bilateral Eye: EOMI, Normal Inspection, PERRL Ears: Normal External Exam, Normal Canal, Hearing Grossly Normal, Normal TMs Nose: Normal Inspection, No Blood Throat/Mouth: Normal Inspection, Normal Lips, Normal Teeth, Normal Gums, Normal Oropharynx, Normal Voice Neck: Non-Tender, Full Range of Motion, Normal Alignment, Normal Inspection Respiratory: No Respiratory Distress, Lungs Clear, Normal Breath Sounds Cardiovascular: Normal Peripheral Pulses, Regular Rate, Rhythm, No Murmur Neurologic: Alert, Normal Mood/Affect, Oriented x 3 Skin: Normal Color, Warm/Dry - Lucila Coma Score Best Eye Response ([place]): (4) Open Spontaneously Best Verbal Response ([place]): (5) Oriented Best Motor Response ([place]): (6) Obeys Commands Course - Vital Signs Last Recorded V/S: Last Vital Signs Temp 35.5 C 06/30/17 10:16 Pulse 84 06/30/17 10:16 Resp 16 06/30/17 10:16 BP 156/105 H 06/30/17 10:16 Pulse Ox 99 06/30/17 10:16 Orthostatic Blood Pressure [ 148/109 Standing] Orthostatic Blood Pressure [ 158/96 Sitting] Orthostatic Blood Pressure [ 141/97 Supine] - Orders/Labs/Meds Orders: Active Orders 24 hr Category Date Time Status Orthostatic Vital Signs [RC] ASDIRECTED Care 06/30/17 11:18 Active DRUG SCREEN, URINE [URCHEM] Stat Lab 06/30/17 11:30 Ordered Labs: Laboratory Tests 06/30/17 06/30/17 06/30/17 Range/Units 11:30 12:15 12:15 WBC 9.75 (3.98-10.04) K/mm3 RBC 4.90 (3.98-5.22) M/mm3 Hgb 14.7 (11.2-15.7) gm/L Hct 44.8 (34.1-44.9) % MCV 91.4 (79.4-94.8) fl MCH 30.0 (25.6-32.2) pg MCHC 32.8 (32.2-35.5) g/dl RDW Std Deviation 42.8 (36.4-46.3) fL Plt Count 340 (182-369) K/mm3 MPV 9.9 (9.4-12.3) fl Neut % (Auto) 75.6 H (34.0-71.1) % Lymph % (Auto) 16.6 L (19.3-51.7) % Patrick % (Auto) 6.3 (4.7-12.5) % Eos % (Auto) 1.2 (0.7-5.8) Baso % (Auto) 0.2 (0.1-1.2) % Neut # (Auto) 7.37 H (1.56-6.13) K/mm3 Lymph # (Auto) 1.62 (1.18-3.74) K/mm3 Patrick # (Auto) 0.61 H (0.24-0.36) K/mm3 Eos # (Auto) 0.12 (0.04-0.36) K/mm3 Baso # (Auto) 0.02 (0.01-0.08) K/mm3 Sodium 146 H (136-145) mEq/L Potassium 3.8 (3.5-5.1) mEq/L Chloride 107 (98-107) mEq/L Carbon Dioxide 24 (21-32) mEq/L Anion Gap 18.8 H (5-15) BUN 18 (7-18) mg/dL Creatinine 0.7 (0.55-1.02) mg/dL Est Cr Clr Drug Dosing 84.59 mL/min Estimated GFR (MDRD) > 60 (>60) mL/min BUN/Creatinine Ratio 25.7 H (14-18) Glucose 86 (74-106) mg/dL Calcium 9.3 (8.5-10.1) mg/dL Total Bilirubin 0.6 (0.2-1.0) mg/dL AST 23 (15-37) U/L ALT 29 (14-59) U/L Alkaline Phosphatase 105 (46-116) U/L Total Protein 7.6 (6.4-8.2) g/dl Albumin 4.0 (3.4-5.0) g/dl Globulin 3.6 gm/dL Albumin/Globulin Ratio 1.1 (1-2) Urine Opiates Screen Presumptive positive H (NEGATIVE) Ur Buprenorphine Scrn Negative (NEGATIVE) Ur Oxycodone Screen Negative (NEGATIVE) Urine Methadone Screen Negative (NEGATIVE) Ur Propoxyphene Screen Negative (NEGATIVE) Ur Barbiturates Screen Negative (NEGATIVE) Ur Tricyclics Screen Negative (NEGATIVE) Ur Phencyclidine Scrn Negative (NEGATIVE) Ur Amphetamine Screen Negative (NEGATIVE) U Methamphetamines Scrn Negative (NEGATIVE) U Benzodiazepines Scrn Negative (NEGATIVE) U Cocaine Metab Screen Negative (NEGATIVE) U Marijuana (THC) Screen Negative (NEGATIVE) Ethyl Alcohol 0.00 (0.00) gm% Meds: Medications Discontinued Medications Generic Name Dose Route Start Last Admin Trade Name Freq PRN Reason Stop Dose Admin Acetaminophen 975 mg 06/30/17 11:18 06/30/17 12:14 Tylenol PO 06/30/17 11:19 975 mg NOW STA Administration Hydroxyzine HCl 25 mg 06/30/17 12:45 06/30/17 13:04 Vistaril IM 06/30/17 12:46 25 mg ONETIME ONE Administration Promethazine HCl 25 mg 06/30/17 11:18 06/30/17 11:44 Phenergan IM 06/30/17 11:19 25 mg ONETIME ONE Administration - Radiology Interpretation Free Text/Narrative:: Head CT Technique: Multiple axial sections through the brain were obtained. Intravenous contrast was not utilized. Comparison: Prior head CT exam of 03/01/17. Findings: Ventricles along with basal cisterns and sulci over the convexities are mildly prominent. No abnormal parenchymal densities are seen. No evidence of intracranial hemorrhage. No midline shift or mass effect is seen. Bone window settings were reviewed which shows the visualized sinuses to appear clear. No acute calvarial abnormality is identified. Impression: 1. Mild generalized atrophy. 2. Nothing acute is appreciated on noncontrast head CT study. CT cervical spine Technique: Multiple axial sections were obtained from above C1 inferiorly to the top of T2. Reconstructed sagittal and coronal images were reviewed. Comparison: Prior cervical spine CT study of 11/03/15. Findings: Disc space narrowing is noted C5-C6. Other disc spaces are preserved. Vertebral body heights are preserved. Mild degenerative change is noted between the dens and anterior arch of C1. Mild spurring is noted within the uncovertebral joints at C5-C6 and less prominent at C4-C5. Incidental ligamentum nuchal calcification is seen. Vertebral bodies and posterior arches are intact with no fracture being seen. Minimal neural foraminal stenosis is seen on both sides at C5-C6. Other neural foramina are patent. No central canal stenosis is seen. No abnormal subluxation is seen. Impression: 1. Mild degenerative change as noted above. 2. Nothing acute is seen on CT study of the cervical spine. - Re-Assessments/Exams Free Text/Narrative Re-Assessment/Exam: 06/30/17 12:49 I reviewed the labs and imaging with the patient. She states that she feels anxious at this times I ordered her some IM hydroxyzine. Plan will be to discharge her home. Discharge instructions as documented. Departure - Departure Time of Disposition: 12:50 Disposition: Home, Self-Care 01 Condition: Fair Clinical Impression: Headache, Fall - Discharge Information Prescriptions: Ondansetron [Zofran ODT] 4 mg PO Q6H PRN #12 tab.dis PRN Reason: Nausea Instructions: Tension Headache, [id number] Referrals: Candida Limon PA [Primary Care Provider] - Forms: ED Department Discharge, ED Return to Work/School Form Additional Instructions: you were given medication the other can make you drowsy. We do not recommend you drive or operate machinery today due to the sedating medication. Zofran 1 tab sublingual every 6 hours as needed for nausea. Rest. Make sure you're drinking plenty of fluids. [id number] Tylenol or Motrin as needed headaches and discomfort. Note given for work. may return tomorrow. Please return to the ER if your symptoms change or worsen. Follow-up with your primary care provider as needed. - My Orders Last 24 Hours: My Active Orders 06/30/17 11:18 Orthostatic Vital Signs [RC] ASDIRECTED 06/30/17 11:30 DRUG SCREEN, URINE [URCHEM] Stat - Assessment/Plan Last 24 Hours: My Active Orders 06/30/17 11:18 Orthostatic Vital Signs [RC] ASDIRECTED 06/30/17 11:30 DRUG SCREEN, URINE [URCHEM] Stat
--- NOTE | 2017-06-30 11:54 | CT ---
CT cervical spine Technique: Multiple axial sections were obtained from above C1 inferiorly to the top of T2. Reconstructed sagittal and coronal images were reviewed. Comparison: Prior cervical spine CT study of 11/03/15. Findings: Disc space narrowing is noted C5-C6. Other disc spaces are preserved. Vertebral body heights are preserved. Mild degenerative change is noted between the dens and anterior arch of C1. Mild spurring is noted within the uncovertebral joints at C5-C6 and less prominent at C4-C5. Incidental ligamentum nuchal calcification is seen. Vertebral bodies and posterior arches are intact with no fracture being seen. Minimal neural foraminal stenosis is seen on both sides at C5-C6. Other neural foramina are patent. No central canal stenosis is seen. No abnormal subluxation is seen. Impression: 1. Mild degenerative change as noted above. 2. Nothing acute is seen on CT study of the cervical spine. Diagnostic code #2
--- NOTE | 2017-06-30 11:56 | CT ---
Head CT Technique: Multiple axial sections through the brain were obtained. Intravenous contrast was not utilized. Comparison: Prior head CT exam of 03/01/17. Findings: Ventricles along with basal cisterns and sulci over the convexities are mildly prominent. No abnormal parenchymal densities are seen. No evidence of intracranial hemorrhage. No midline shift or mass effect is seen. Bone window settings were reviewed which shows the visualized sinuses to appear clear. No acute calvarial abnormality is identified. Impression: 1. Mild generalized atrophy. 2. Nothing acute is appreciated on noncontrast head CT study. Diagnostic code #2
[2017-06-30] MEDS ORDERED: hydrOXYzine HCl 25 MG/ML SDV IM ONE (12:45)
== END 2017-06-30 13:05 | disposition home or self-care (01) ==
LOC: JD.ED 10:07
DX: R51 Headache (principal); R42 Dizziness and giddiness; F17.210 Nicotine dependence, cigarettes, uncomplicated; Z88.6 Allergy status to analgesic agent; Z88.8 Allergy status to other drugs, medicaments and biological substances; Z88.2 Allergy status to sulfonamides; W19.XXXA Unspecified fall, initial encounter
CPT/HCPCS: 36415; 70450; 72125; 80053; 80306; 85025; 96372; 99284; A9270; G0480; J2550; J3410; 99283

== ENCOUNTER 2017-07-01 09:18 | Emergency (ER) | payer MEDICAID ==
[2017-07-01 09:31] VITALS: BP 147/99
[2017-07-01] MEDS ORDERED: Sodium Chloride 0.9% 10 ML Syringe FLUSH PRN (09:42)
[2017-07-01] MEDS ORDERED: Sodium Chloride 0.9% 1,000 ML IV SCH (09:45)
[2017-07-01] MEDS ORDERED: Ondansetron 4 MG/2 ML SDV IVPUSH ONE (09:48)
[2017-07-01] MEDS ORDERED: LORazepam 2 MG/ML SDV IVPUSH ONE ×2 (10:01→13:08)
[2017-07-01] MEDS ORDERED: HYDROmorphone 0.5 MG/0.5 ML SYRINGE IVPUSH ONE (10:01)
--- NOTE | 2017-07-01 10:12 | EDM.PDOC ---
<Karine Hong - Last Filed: 07/01/17 10:03> ED HPI GENERAL MEDICAL PROBLEM - General Chief Complaint: Neuro Symptoms/Deficits Stated Complaint: REVISIT Time Seen by Provider: 07/01/17 09:32 Source of Information: Reports: Patient History Limitations: Reports: No Limitations - History of Present Illness INITIAL COMMENTS - FREE TEXT/NARRATIVE: Patient is a 51 YO female who presents today after a visit to this ER yesterday. She states on Wednesday night she fell and hit the back of her head. Ambulance was called by her but she denied treatment at that time. She then woke up on Wednesday and felt worse. Head CT, Neck CT was performed with came back with no acute findings. Full results as documented in visit on 2017. She was sent with a prescription for Zofran. She states she was not able to fill this because she just wanted to go home and sleep. She reports sleeping off and on from 4 pm to 6 am. She woke up multiple times due to vomiting. She is unable to approximate how many times exactly. This morning she presented to the clinic to attempt a follow-up with her provider. When she arrived she felt as if she was going to pass out but was able to sit down before falling. She reports a headache of 10/10 pain generalized throughout her head and described as throbbing. Dizziness, weakness, and jaw and neck soreness. She denies midline neck pain and states she thinks it is more muscular in nature. She does have some lower back pain but states this is chronic due to an implanted stimulator for urinary incontinence. She was prescribed 20 tabs Percocet on June 23 which she said ran out on Wednesday, June 29. Patient states that prior to her fall on Wednesday she felt well. Headache Pain Score (Numeric/FACES): 10 - Related Data Allergies Allergy/AdvReac Type Severity Reaction Status Date / Time ibuprofen Allergy Itching Verified 07/01/17 09:31 ketorolac tromethamine Allergy Rash Verified 07/01/17 09:31 [From Toradol] naproxen Allergy Itching Verified 07/01/17 09:31 Sulfa (Sulfonamide Allergy Rash Verified 07/01/17 09:31 Antibiotics) sumatriptan [From Imitrex] Allergy Anaphylactic Verified 07/01/17 09:31 Shock sumatriptan succinate Allergy Anaphylactic Verified 07/01/17 09:31 [From Imitrex] Shock tramadol Allergy Rash Verified 07/01/17 09:31 diphenhydramine HCl AdvReac Headache Verified 07/01/17 09:31 [From Benadryl] MSG Allergy Anxiety Uncoded 06/30/17 10:18 Home Meds: Home Meds Laura's Wort 300 mg PO DAILY 06/23/17 [History] Acetaminophen/HYDROcodone [[place] 325-5 MG] 1 tab PO Q6H PRN #7 tablet 07/01/17 [ Rx] Past Medical History HEENT History: Reports: Impaired Vision Other HEENT History: wears corrective lenses Cardiovascular History: Reports: High Cholesterol Respiratory History: Reports: Other (See Below) Other Respiratory History: restrictive airway Gastrointestinal History: Reports: Gastritis, GERD Other Gastrointestinal History: esophageal stricture, abdominal pain lower, Genitourinary History: Reports: Urinary Incontinence Other Genitourinary History: implantable device 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: Musculoskeletal History: Reports: Back Pain, Chronic Neurological History: Reports: CVA, Migraines, Seizure, Other (See Below) Other Neuro History: patient reports "nervous tics" Psychiatric History: Reports: Addiction, Anxiety, Depression, Suicide Attempt Other Psychiatric History: drug overdose, personality disorder, alcohol withdrawal Endocrine/Metabolic History: Reports: Obesity/BMI 30+ Dermatologic History: Reports: Other (See Below) Other Dermatologic History: skin lesion - Infectious Disease History Infectious Disease History: Reports: Chicken Pox - Past Surgical History GI Surgical History: Reports: Appendectomy, Cholecystectomy, EGD Female Surgical History: Reports: Hysterectomy, Salpingo-Oophorectomy, Tubal Ligation, Other (See Below) Other Female Surgeries/Procedures: bladder stimulator Social & Family History - Family History Family Medical History: Noncontributory Cardiac: Reports: Bypass, CAD, Heart Failure - Tobacco Use Smoking Status *Q: Current Every Day Smoker Years of Tobacco use: 20 Packs/Tins Daily: 1 Used Tobacco, but Quit: No Month/Year Tobacco Last Used: 6 Second Hand Smoke Exposure: Yes - Caffeine Use Caffeine Use: Reports: Coffee - Alcohol Use Days Per Week of Alcohol Use: 7 Number of Drinks Per Day: 5 Total Drinks Per Week: 35 - Recreational Drug Use Recreational Drug Use: No Drug Use in Last 12 Months: Yes Recreational Drug Type: Reports: Fentanyl, Marijuana/Hashish, Methamphetamine Recreational Drug Use Frequency: Not Used In Over 5 Months - Living Situation & Occupation Living situation: Reports: , Other (with ex-) Occupation: Employed ([employer]) ED ROS GENERAL - Review of Systems Review Of Systems: See Below Constitutional: Reports: Weakness, Fatigue HEENT: Reports: Other (headache greatest on area of impact, left occipital ) Respiratory: Reports: No Symptoms Cardiovascular: Reports: No Symptoms GI/Abdominal: Reports: Nausea, Vomiting. Denies: Abdominal Pain Musculoskeletal: Reports: Neck Pain, Back Pain Course - Vital Signs Last Recorded V/S: Last Vital Signs Temp 97.1 F 07/01/17 09:25 Pulse 94 07/01/17 09:25 Resp 16 07/01/17 09:25 BP 147/99 H 07/01/17 09:25 Pulse Ox 100 07/01/17 09:25 - Orders/Labs/Meds Orders: Active Orders 24 hr Category Date Time Status Peripheral IV Care [RC] . DIRECTED Care 07/01/17 09:42 Active Peripheral IV Insertion Adult [OM.PC] Stat Oth 07/01/17 09:42 Ordered Labs: Laboratory Tests 07/01/17 07/01/17 Range/Units 11:05 11:05 WBC 6.82 (3.98-10.04) K/mm3 RBC 4.76 (3.98-5.22) M/mm3 Hgb 14.3 (11.2-15.7) gm/L Hct 44.3 (34.1-44.9) % MCV 93.1 (79.4-94.8) fl MCH 30.0 (25.6-32.2) pg MCHC 32.3 (32.2-35.5) g/dl RDW Std Deviation 43.2 (36.4-46.3) fL Plt Count 288 (182-369) K/mm3 MPV 10.2 (9.4-12.3) fl Neut % (Auto) 68.3 (34.0-71.1) % Lymph % (Auto) 20.4 (19.3-51.7) % Chambers % (Auto) 7.8 (4.7-12.5) % Eos % (Auto) 3.1 (0.7-5.8) Baso % (Auto) 0.3 (0.1-1.2) % Neut # (Auto) 4.66 (1.56-6.13) K/mm3 Lymph # (Auto) 1.39 (1.18-3.74) K/mm3 Chambers # (Auto) 0.53 H (0.24-0.36) K/mm3 Eos # (Auto) 0.21 (0.04-0.36) K/mm3 Baso # (Auto) 0.02 (0.01-0.08) K/mm3 Sodium 147 H (136-145) mEq/L Potassium 3.9 (3.5-5.1) mEq/L Chloride 109 H (98-107) mEq/L Carbon Dioxide 24 (21-32) mEq/L Anion Gap 17.9 H (5-15) BUN 19 H (7-18) mg/dL Creatinine 0.8 (0.55-1.02) mg/dL Est Cr Clr Drug Dosing 74.02 mL/min Estimated GFR (MDRD) > 60 (>60) mL/min BUN/Creatinine Ratio 23.8 H (14-18) Glucose 117 H (74-106) mg/dL Calcium 9.0 (8.5-10.1) mg/dL Total Bilirubin 0.5 (0.2-1.0) mg/dL AST 21 (15-37) U/L ALT 28 (14-59) U/L Alkaline Phosphatase 102 (46-116) U/L Total Protein 7.1 (6.4-8.2) g/dl Albumin 3.7 (3.4-5.0) g/dl Globulin 3.4 gm/dL Albumin/Globulin Ratio 1.1 (1-2) Ethyl Alcohol 0.00 (0.00) gm% Meds: Medications Discontinued Medications Generic Name Dose Route Start Last Admin Trade Name Freq PRN Reason Stop Dose Admin Hydromorphone HCl 0.5 mg 07/01/17 10:01 07/01/17 10:31 Dilaudid IVPUSH 07/01/17 10:02 0.5 mg ONETIME ONE Administration Sodium Chloride 1,000 mls @ 150 mls/hr 07/01/17 09:45 07/01/17 10:21 Normal Saline IV 150 mls/hr ASDIRECTED HÉCTOR Administration Lorazepam 0.5 mg 07/01/17 10:01 07/01/17 10:28 Ativan IVPUSH 07/01/17 10:02 0.5 mg ONETIME ONE Administration Lorazepam 0.5 mg 07/01/17 13:08 07/01/17 13:43 Ativan IVPUSH 07/01/17 13:09 0.5 mg ONETIME ONE Administration Metoclopramide HCl 10 mg 07/01/17 13:01 07/01/17 13:43 Reglan PO 07/01/17 13:02 10 mg ONETIME ONE Administration Morphine Sulfate 4 mg 07/01/17 11:29 07/01/17 11:39 Morphine IVPUSH 07/01/17 11:30 4 mg ONETIME ONE Administration Ondansetron HCl 4 mg 07/01/17 09:48 07/01/17 10:22 Zofran IVPUSH 07/01/17 09:49 4 mg ONETIME ONE Administration Sodium Chloride 10 ml 07/01/17 09:42 07/01/17 10:22 Saline Flush FLUSH 10 ml ASDIRECTED PRN Administration Keep Vein Open Departure - Departure Disposition: Home, Self-Care 01 Clinical Impression: Fall Qualifiers: Encounter type: subsequent encounter Qualified Code(s): W19.XXXD - Unspecified fall, subsequent encounter Head concussion Qualifiers: Encounter type: subsequent encounter Loss of consciousness presence/duration: without LOC Qualified Code(s): S06.0X0D - Concussion without loss of consciousness, subsequent encounter - Discharge Information Prescriptions: Acetaminophen/HYDROcodone [[place] 325-5 MG] 1 tab PO Q6H PRN #7 tablet PRN Reason: Pain Instructions: Fall Prevention in the Home, [id number], Contusion Referrals: Candida Limon PA [Primary Care Provider] - Forms: ED Department Discharge, ED Return to Work/School Form Additional Instructions: The treatment for concussion is rest and time, your symptoms of headache, nausea , vomiting, dizziness should all get better over the next 1-2 days. Fill your prescription for Zofran given yesterday and use that if needed for further nausea or vomiting. Clear liquids and very bland diet as tolerated. He may take Tylenol or ibuprofen for mild to moderate headacheor hydrocodone if needed for severe Akers. Follow-up clinic if not getting back to normal by Wednesday as discussed. Off work until next Wednesday. - My Orders Last 24 Hours: My Active Orders 07/01/17 09:42 Peripheral IV Care [RC] . DIRECTED Peripheral IV Insertion Adult [OM.PC] Stat - Assessment/Plan Last 24 Hours: My Active Orders 07/01/17 09:42 Peripheral IV Care [RC] . DIRECTED Peripheral IV Insertion Adult [OM.PC] Stat <Reggie Melo Meena - Last Filed: 07/02/17 08:28> ED ROS GENERAL - Review of Systems Neurological: Reports: Dizziness, Headache. Denies: Numbness, Tingling, Trouble Speaking, Weakness, Change in Speech ED EXAM, NEURO - Physical Exam Exam: See Below General Appearance: Alert, Moderate Distress Ears: Normal External Exam Nose: Normal Inspection Throat/Mouth: Normal Inspection Head Exam: Atraumatic. No: Facial Swelling Respiratory/Chest: No Respiratory Distress, Lungs Clear, Normal Breath Sounds Cardiovascular: Regular Rate, Rhythm GI/Abdominal: Soft, Non-Tender. No: Guarding Neurological: Alert, Normal Mood/Affect, No Motor/Sensory Deficits, Oriented x 3 , Other (finger to nose testing normal) Extremities: Normal Inspection, Normal Range of Motion Skin Exam: Warm, Dry, Normal Color Course - Re-Assessments/Exams Free Text/Narrative Re-Assessment/Exam: 07/01/17 14:25 Initial hx and exam done by FISH [employer] student working with me today. I agree with her hx and exam as documented. I have also examined patient, reviewed visit of yesterday and other past medical records. Because of worsening headache, worsening balance difficulty and report of nausea vomiting through the night did repeat her head CT. Repeat head CT normal. Neurologic exam normal. She was initially given Zofran for nausea 0.5 mg Dilaudid IV for headache. I would like to given Toradol but she claims allergy to Toradol, states she breaks out in hives. She is been given IV fluid over time, Reglan, Tylenol and a small dose of Ativan IV. She does feel better, still does still complain of more frontal headache. Discharge instructions as documented. Departure - Departure Time of Disposition: 14:28 Condition: Fair
--- NOTE | 2017-07-01 11:05 | CT ---
Head CT Technique: Multiple axial sections through the brain were obtained. Intravenous contrast was not utilized. Comparison: Prior head CT study performed on 06/30/17. Findings: Ventricles along with basal cisterns and sulci over the convexities are mildly prominent. No abnormal parenchymal densities are seen. No evidence of intracranial hemorrhage. No midline shift or mass effect is seen. Bone window settings were reviewed which shows the visualized sinuses to appear clear. No acute calvarial abnormality is seen. Impression: 1. Nothing acute is identified on noncontrast head CT study. No significant change is seen from previous head CT exam. Diagnostic code #2
[2017-07-01] MEDS ORDERED: Morphine 4 MG/ML Syringe IVPUSH ONE (11:29)
[2017-07-01] MEDS ORDERED: Metoclopramide 10 MG Tab PO ONE (13:01)
== END 2017-07-01 14:41 | disposition home or self-care (01) ==
LOC: JD.ED 09:18
DX: S06.0X0A Concussion without loss of consciousness, initial encounter (principal); E78.00 Pure hypercholesterolemia, unspecified; F17.210 Nicotine dependence, cigarettes, uncomplicated; Z88.6 Allergy status to analgesic agent; Z88.2 Allergy status to sulfonamides; Z88.5 Allergy status to narcotic agent; Z88.8 Allergy status to other drugs, medicaments and biological substances; Z79.899 Other long term (current) drug therapy; W19.XXXA Unspecified fall, initial encounter; W22.8XXA Striking against or struck by other objects, initial encounter
CPT/HCPCS: 36415; 70450; 80053; 85025; 96361; 96374; 96375; 99284; A9270; G0480; J1170; J2060; J2270; J2405; J7040; J7050

== ENCOUNTER 2017-07-22 14:06 | Emergency (ER) | payer SELFPAY ==
[2017-07-22 14:21] VITALS: BP 159/107
--- NOTE | 2017-07-22 14:57 | EDM.PDOC ---
<Karine Hong - Last Filed: 07/22/17 18:35> ED HPI GENERAL MEDICAL PROBLEM - General Chief Complaint: Back Pain or Injury Stated Complaint: BACK PAIN Time Seen by Provider: 07/22/17 14:45 Source of Information: Reports: Patient History Limitations: Reports: No Limitations - History of Present Illness INITIAL COMMENTS - FREE TEXT/NARRATIVE: Patient is a 51 YO male who presents today for back pain. 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 She states she is having pain with ambulation and the pain is radiating down the right leg about half way down her thigh. She states she tried taking Tylenol. She states she was given 20 tabs [place] from her surgeon, Dr. Duncan last Wednesday and is out of these now so she did not have anything for pain. She states she has surgery scheduled for August 16 to remove the bladder stimulator which she believes is causing her problems. She denies recent fall. Patient has a long history of chronic pain management and has not seen her primary care provider since running out of pain medications. Back Pain Score (Numeric/FACES): 8 - Related Data Allergies Allergy/AdvReac Type Severity Reaction Status Date / Time ibuprofen Allergy Itching Verified 07/22/17 14:21 ketorolac tromethamine Allergy Rash Verified 07/22/17 14:21 [From Toradol] naproxen Allergy Itching Verified 07/22/17 14:21 Sulfa (Sulfonamide Allergy Rash Verified 07/22/17 14:21 Antibiotics) sumatriptan [From Imitrex] Allergy Anaphylactic Verified 07/22/17 14:21 Shock sumatriptan succinate Allergy Anaphylactic Verified 07/22/17 14:21 [From Imitrex] Shock tramadol Allergy Rash Verified 07/22/17 14:21 diphenhydramine HCl AdvReac Headache Verified 07/22/17 14:21 [From Benadryl] MSG Allergy Anxiety Uncoded 07/22/17 14:21 Home Meds: Home Meds Laura's Wort 300 mg PO DAILY 06/23/17 [History] Past Medical History HEENT History: Reports: Impaired Vision Other HEENT History: wears corrective lenses Cardiovascular History: Reports: High Cholesterol Respiratory History: Reports: Other (See Below) Other Respiratory History: restrictive airway Gastrointestinal History: Reports: Gastritis, GERD Other Gastrointestinal History: esophageal stricture, abdominal pain lower, Genitourinary History: Reports: Urinary Incontinence Other Genitourinary History: implantable 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: Musculoskeletal History: Reports: Back Pain, Chronic Neurological History: Reports: CVA, Migraines, Seizure, Other (See Below) Other Neuro History: patient reports "nervous tics" Psychiatric History: Reports: Addiction, Anxiety, Depression, Suicide Attempt Other Psychiatric History: drug overdose, personality disorder, alcohol withdrawal Endocrine/Metabolic History: Reports: Obesity/BMI 30+ Dermatologic History: Reports: Other (See Below) Other Dermatologic History: skin lesion - Infectious Disease History Infectious Disease History: Reports: Chicken Pox - Past Surgical History GI Surgical History: Reports: Appendectomy, Cholecystectomy, EGD Female Surgical History: Reports: Hysterectomy, Salpingo-Oophorectomy, Tubal Ligation, Other (See Below) Other Female Surgeries/Procedures: bladder stimulator Social & Family History - Family History Family Medical History: Noncontributory Cardiac: Reports: Bypass, CAD, Heart Failure - Tobacco Use Smoking Status *Q: Never Smoker Years of Tobacco use: 20 Packs/Tins Daily: 1 Used Tobacco, but Quit: No Month/Year Tobacco Last Used: 6 Second Hand Smoke Exposure: Yes - Caffeine Use Caffeine Use: Reports: None - Alcohol Use Days Per Week of Alcohol Use: 7 Number of Drinks Per Day: 5 Total Drinks Per Week: 35 - Recreational Drug Use Recreational Drug Use: No Drug Use in Last 12 Months: Yes Recreational Drug Type: Reports: Fentanyl, Marijuana/Hashish, Methamphetamine Recreational Drug Use Frequency: Not Used In Over 5 Months - Living Situation & Occupation Living situation: Reports: , Other (with ex-) Occupation: Employed ([employer]) ED [facility] [employer] GENERAL - Review of Systems Review Of Systems: See Below Constitutional: Reports: No Symptoms Musculoskeletal: Reports: Back Pain, Leg Pain (radiating pain into the right posterior thigh) Skin: Reports: No Symptoms Neurological: Reports: No Symptoms Psychiatric: Reports: No Symptoms ED EXAM,LOWER BACK PAIN/INJURY - Physical Exam Exam: See Below Exam Limited By: No Limitations General Appearance: Alert, WD/WN, Mild Distress Respiratory/Chest: No Respiratory Distress, Lungs Clear Cardiovascular: Normal Peripheral Pulses, Regular Rate, Rhythm Back Exam: Normal Inspection, Other (pain to palpation down her right buttock and SI joint). No: Paraspinal Tenderness, Vertebral Tenderness Extremities: Normal Inspection, Normal Range of Motion, Non-Tender Neurological: Alert, Normal Mood/Affect, Normal Dorsiflexion, CN II-XII Intact, Normal Plantar Flexion, No Motor/Sensory Deficits, Oriented x 3 Psychiatric: Normal Affect, Normal Mood Skin Exam: Warm, Dry, Intact, Normal Color, No Rash Course - Vital Signs Last Recorded V/S: Last Vital Signs Temp 36.2 C 07/22/17 14:20 Pulse 93 07/22/17 14:20 Resp 16 07/22/17 14:20 BP 159/107 H 07/22/17 14:20 Pulse Ox 99 07/22/17 14:20 Departure - Departure Disposition: Eloped 07 Clinical Impression: Back pain - Discharge Information Referrals: Candida Limon PA [Primary Care Provider] - Forms: ED Department Discharge Additional Instructions: Patient eloped after hearing she would not be receiving a prescription for pain medication. Left Prior to discharge instructions <Chastity Carrion - Last Filed: 07/22/17 19:07> ED HPI GENERAL MEDICAL PROBLEM - History of Present Illness INITIAL COMMENTS - FREE TEXT/NARRATIVE: I have seen the patient and agree with the HPI as documented to TERRELL Marte. Course - Re-Assessments/Exams Free Text/Narrative Re-Assessment/Exam: 07/22/17 15:03 I have seen the patient and agree with HPI, ROS and PE as documented by Karine TEJADA. Patient was searched on the [place] prescription drug registry. She has received 12 prescriptions from 6 to prescribers for controlled substances within the last year. Most recently received [place] 10-325 #20 on 07-16-17. I informed the patient this is a chronic problem and we do not do chronic pain management in the ER. She needs to follow-up with her surgeon or PCP for pain management. Patient eloped after hearing she would not receive a prescription for narcotics. Departure - Departure Time of Disposition: 15:00 Condition: Fair
== END 2017-07-22 15:01 | disposition left against medical advice (07) ==
LOC: JD.ED 14:06
DX: M54.5 Low back pain (principal); E66.9 Obesity, unspecified; Z77.22 Contact with and (suspected) exposure to environmental tobacco smoke (acute) (chronic); Z88.6 Allergy status to analgesic agent; Z88.8 Allergy status to other drugs, medicaments and biological substances; Z88.2 Allergy status to sulfonamides
CPT/HCPCS: 99283

== ENCOUNTER 2017-08-18 10:31 | Emergency (ER) | payer MEDICAID ==
--- NOTE | 2017-08-18 11:01 | EDM.PDOC ---
ED HPI GENERAL MEDICAL PROBLEM - General Chief Complaint: Genitourinary Problem Stated Complaint: POST-SURGICAL ISSUES Time Seen by Provider: 08/18/17 11:01 Source of Information: Reports: Patient History Limitations: Reports: No Limitations - History of Present Illness INITIAL COMMENTS - FREE TEXT/NARRATIVE: 51-year-old female attends the ED essentially for pain management. She is 2 days postop removal of wires and InterStim device that she had in her right lower back. This was to stimulate her spinal cord and try to relieve chronic pain. It has been malfunctioning and not working for several months if not years and was finally removed. At the same time she also underwent a bladder sling procedure done primarily through the vagina. This was done by Dr. Phillips. Both surgeries were carried out in [place] at the same time. She is self catheterizing with a good deal of difficulties she can hardly bend forwards to see where she is placing the catheter. 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 Bladder scan done here showed 40 mils within her bladder. This means that she is emptying out pretty well. She is currently using hydrocodone 10/325 milligram tablets for pain relief one every 6 hours and is not finding much relief with this medication. I looked at her wounds and they are healing satisfactorily. Patient is feeling exhausted. She states she got perhaps 2 hours asleep the last 2 nights. Onset: Sudden Onset Date: 08/16/17 Duration: Day(s): Location: Reports: Back (Mid back and right), Pelvis ( iliac crest area. pelvic sling procedure done primarily through the vagina.) Quality: Reports: Ache, Throbbing Severity: Moderate Improves with: Reports: None Worsens with: Reports: Movement Context: Reports: Other. 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: Other (see below) (Early using hydrocodone 10/325 mg tabs without much relief.) Back Pain Score (Numeric/FACES): 10 - Related Data Allergies Allergy/AdvReac Type Severity Reaction Status Date / Time ibuprofen Allergy Itching Verified 08/18/17 10:45 ketorolac tromethamine Allergy Rash Verified 08/18/17 10:45 [From Toradol] naproxen Allergy Itching Verified 08/18/17 10:45 Sulfa (Sulfonamide Allergy Rash Verified 08/18/17 10:45 Antibiotics) sumatriptan [From Imitrex] Allergy Anaphylactic Verified 08/18/17 10:45 Shock sumatriptan succinate Allergy Anaphylactic Verified 08/18/17 10:45 [From Imitrex] Shock tramadol Allergy Rash Verified 08/18/17 10:45 diphenhydramine HCl AdvReac Headache Verified 08/18/17 10:45 [From Benadryl] MSG Allergy Anxiety Uncoded 08/18/17 10:45 Home Meds: Home Meds Hydrocodone/Acetaminophen [Hydrocodon-Acetaminophn 10-325] 1 tab PO Q4H PRN [History] oxyCODONE HCl/Acetaminophen [Percocet 10-325 mg Tablet] 1 each PO Q4H PRN #20 tablet 08/18/17 [Rx] Past Medical History HEENT History: Reports: Impaired Vision Other HEENT History: wears corrective lenses Cardiovascular History: Reports: High Cholesterol Respiratory History: Reports: Other (See Below) Other Respiratory History: restrictive airway Gastrointestinal History: Reports: Gastritis, GERD Other Gastrointestinal History: esophageal stricture, abdominal pain lower, Genitourinary History: Reports: Urinary Incontinence Other Genitourinary History: implantable device interstim RLQ- removed 08/16/17 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: Musculoskeletal History: Reports: Back Pain, Chronic Neurological History: Reports: CVA, Migraines, Seizure, Other (See Below) Other Neuro History: patient reports "nervous tics" Psychiatric History: Reports: Addiction, Anxiety, Depression, Suicide Attempt Other Psychiatric History: drug overdose, personality disorder, alcohol withdrawal Endocrine/Metabolic History: Reports: Obesity/BMI 30+ Dermatologic History: Reports: Other (See Below) Other Dermatologic History: skin lesion - Infectious Disease History Infectious Disease History: Reports: Chicken Pox - Past Surgical History GI Surgical History: Reports: Appendectomy, Cholecystectomy, EGD Female Surgical History: Reports: Hysterectomy, Salpingo-Oophorectomy, Tubal Ligation, Other (See Below) Other Female Surgeries/Procedures: bladder stimulator, bladder sling, colporrhaphy Social & Family History - Family History Family Medical History: Noncontributory Cardiac: Reports: Bypass, CAD, Heart Failure - Tobacco Use Smoking Status *Q: Current Every Day Smoker Years of Tobacco use: 10 Packs/Tins Daily: 0.1 - Caffeine Use Caffeine Use: Reports: Coffee - Recreational Drug Use Recreational Drug Use: No - Living Situation & Occupation Living situation: Reports: , Other (with ex-) Occupation: Employed ([employer]) ED ROS GENERAL - Review of Systems Review Of Systems: See Below Constitutional: Reports: Malaise, Weakness, Fatigue, Decreased Appetite. Denies : Fever, Chills, Weight Loss HEENT: Reports: No Symptoms Respiratory: Reports: No Symptoms Cardiovascular: Reports: No Symptoms Endocrine: Reports: Fatigue (From not sleeping) GI/Abdominal: Reports: Abdominal Pain (Diffuse lower abdominal pain especially in the pelvis where she had bladder sling procedure.) : Reports: Other (Currently she is intermittently catheterizing herself usually 3 or 4 times daily. She constantly feels fullness in her pelvis.) Musculoskeletal: Reports: Other (Chronic low back pain. Scars are healing well satisfactory since she had the InterStim device and wires removed from her lower back she has 2 separate incisions.) Skin: Reports: Pallor (Slightly prominent) Neurological: Reports: Difficulty Walking (Chronically) ED EXAM, GI/ABD - Physical Exam Exam: See Below (Chronically due to low back pain) Exam Limited By: No Limitations General Appearance: Alert, No Apparent Distress, Other Eyes: Bilateral: Normal Appearance (No jaundice.) Respiratory/Chest: No Respiratory Distress, Lungs Clear, Normal Breath Sounds Cardiovascular: Normal Peripheral Pulses, Regular Rate, Rhythm, No Edema, No Gallop, No Murmur GI/Abdominal Exam: Normal Bowel Sounds, Soft, Non-Tender, No Organomegaly, Distended (Is slightly distended and tympanitic to percussion.), Tender ( Tenderness tenderness across the lower abdomen. Most the surgery was done laparoscopically through the vagina. She has no abdominal scars), Other Back Exam: Other Extremities: Normal Inspection (Has 2 surgical scars one in the midline lower back lumbar spine and one against the iliac crest on the right side where she had her InterStim device removed and the wires removed. Wounds appear to be healing well.), Normal Range of Motion, Non-Tender, No Pedal Edema Neurological: Alert, Oriented, CN II-XII Intact, Normal Cognition, Normal Gait Course - Vital Signs Last Recorded V/S: Last Vital Signs Temp 36.6 C 08/18/17 11:41 Pulse 85 08/18/17 11:41 Resp 18 08/18/17 11:41 BP 128/85 08/18/17 11:41 Pulse Ox 99 08/18/17 11:41 - Orders/Labs/Meds Meds: Medications Discontinued Medications Generic Name Dose Route Start Last Admin Trade Name Ashvin PRN Reason Stop Dose Admin Hydromorphone HCl 1 mg 08/18/17 11:09 08/18/17 11:27 Dilaudid IM 08/18/17 11:10 1 mg ONETIME ONE Administration Promethazine HCl 25 mg 08/18/17 11:09 08/18/17 11:27 Phenergan IM 08/18/17 11:10 25 mg ONETIME ONE Administration - Radiology Interpretation Free Text/Narrative:: 51-year-old female presents to the ED primarily for pain management. She is finding current hydrocodone 325 mg 1 every 6 hours not successful in relieving her pain. Patient underwent 2 separate surgeries at the same time she had removal of the InterStim device from her right posterior lower back as well as the wires from the lumbar spine. There is 2 separate incisions. She also underwent a bladder sling procedure done primarily through the vagina and has pain across her lower pelvis. Her current urine on bladder scan is 40 mils meaning that she is emptying properly with self-catheterization. I will give her an injection of Dilaudid 1 mg with Phenergan 25 mg IM so that she can get some sleep. I will change her pain medication Percocet 12/29/24 for pain relief. 20 tablets will be provided Departure - Departure Time of Disposition: 11:23 Disposition: Home, Self-Care 01 Condition: Fair Clinical Impression: Encounter for pain management - Discharge Information Prescriptions: oxyCODONE HCl/Acetaminophen [Percocet 10-325 mg Tablet] 1 each PO Q4H PRN #20 tablet PRN Reason: post operative pain Referrals: Candida Limon PA [Primary Care Provider] - Forms: ED Department Discharge Additional Instructions: Evaluation in the emergency room today in regards to postoperative pain management. You underwent 2 separate surgeries on the same date 2 days ago. Removal of the lower back InterStim ablation device and wires through 2 separate incisions and a bladder sling procedure. pain across the pelvis and lower back which is to be expected but unfortunately his poorly controlled by hydrocodone 10/3/25 milligram tablets at this time. Doing a good job by using catheterization to empty her bladder. Only 40 mils of urine was identified in the bladder. It is important to start antibiotics to prevent bladder infection from self-catheterization processes. You did receive an injection for pain relief in the ED Dilaudid 1 mg with Phenergan 25 mg which will help provide pain relief for the next 4-6 hours later to get some sleep. I changed her pain medication to Percocet 10/3/25 milligram tablets one or 2 every 4-6 hours as necessary for pain relief. Hydrocodone is to be discontinued. You should make sure that she also on MiraLAX powder 17 g every day to prevent constipation from the pain medications.
[2017-08-18] MEDS ORDERED: Promethazine 25 MG/ML SDV IM ONE (11:09)
[2017-08-18] MEDS ORDERED: HYDROmorphone 0.5 MG/0.5 ML SYRINGE IM ONE (11:09)
[2017-08-18 11:42] VITALS: BP 128/85
== END 2017-08-18 11:35 | disposition home or self-care (01) ==
LOC: JD.ED 10:31
DX: G89.29 Other chronic pain (principal); M54.5 Low back pain; E78.00 Pure hypercholesterolemia, unspecified; F17.210 Nicotine dependence, cigarettes, uncomplicated; Z88.6 Allergy status to analgesic agent; Z88.2 Allergy status to sulfonamides; Z88.8 Allergy status to other drugs, medicaments and biological substances; Z79.899 Other long term (current) drug therapy
CPT/HCPCS: 51798; 96372; 99283; J1170; J2550

== ENCOUNTER 2017-08-21 08:22 | Emergency (ER) | payer MEDICAID ==
[2017-08-21 09:10] VITALS: BP 122/83
[2017-08-21] MEDS ORDERED: Promethazine 25 MG/ML SDV IM ONE (09:15)
[2017-08-21] MEDS ORDERED: HYDROmorphone 0.5 MG/0.5 ML SYRINGE IM ONE ×2 (09:15→11:31)
--- NOTE | 2017-08-21 11:13 | EDM.PDOC ---
ED HPI GENERAL MEDICAL PROBLEM - General Chief Complaint: Fever Stated Complaint: PAIN/FEVER - POST SURGERY 08/16 Time Seen by Provider: 08/21/17 08:59 Source of Information: Reports: Patient History Limitations: Reports: No Limitations - History of Present Illness INITIAL COMMENTS - FREE TEXT/NARRATIVE: The patient presents with a fever. She is post op day 6 from a bladder sling and removal of a nerve stimulator in her low back. They did the surgeries the same day. She had a fever or 102. She is self cathing. She has low back pain and lower abdomen/pelvic pain. She has a slight cough. She has no chest pain. She does have some nausea. Onset: Gradual Duration: Day(s): (6) Location: Reports: Abdomen, Pelvis Quality: Reports: Sharp Severity: Severe Improves with: Reports: None Worsens with: Reports: None Associated Symptoms: Reports: Nausea/Vomiting. Denies: Chest Pain, Fever/Chills Vaginal Pain Score (Numeric/FACES): 9 - Related Data Allergies Allergy/AdvReac Type Severity Reaction Status Date / Time ibuprofen Allergy Itching Verified 08/21/17 08:59 ketorolac tromethamine Allergy Rash Verified 08/21/17 08:59 [From Toradol] naproxen Allergy Itching Verified 08/21/17 08:59 Sulfa (Sulfonamide Allergy Rash Verified 08/21/17 08:59 Antibiotics) sumatriptan [From Imitrex] Allergy Anaphylactic Verified 08/21/17 08:59 Shock sumatriptan succinate Allergy Anaphylactic Verified 08/21/17 08:59 [From Imitrex] Shock tramadol Allergy Rash Verified 08/21/17 08:59 diphenhydramine HCl AdvReac Headache Verified 08/21/17 08:59 [From Benadryl] MSG Allergy Anxiety Uncoded 08/18/17 10:45 Home Meds: Home Meds oxyCODONE HCl/Acetaminophen [Percocet 10-325 mg Tablet] 1 each PO Q4H PRN #20 tablet 08/18/17 [Rx] Past Medical History HEENT History: Reports: Impaired Vision Other HEENT History: wears corrective lenses Cardiovascular History: Reports: High Cholesterol Respiratory History: Reports: Other (See Below) Other Respiratory History: restrictive airway Gastrointestinal History: Reports: Gastritis, GERD Other Gastrointestinal History: esophageal stricture, abdominal pain lower, Genitourinary History: Reports: Urinary Incontinence Other Genitourinary History: implantable device interstim RLQ- removed 08/16/17 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: Musculoskeletal History: Reports: Back Pain, Chronic Neurological History: Reports: CVA, Migraines, Seizure, Other (See Below) Other Neuro History: patient reports "nervous tics" Psychiatric History: Reports: Addiction, Anxiety, Depression, Suicide Attempt Other Psychiatric History: drug overdose, personality disorder, alcohol withdrawal Endocrine/Metabolic History: Reports: Obesity/BMI 30+ Dermatologic History: Reports: Other (See Below) Other Dermatologic History: skin lesion - Infectious Disease History Infectious Disease History: Reports: Chicken Pox - Past Surgical History GI Surgical History: Reports: Appendectomy, Cholecystectomy, EGD Female Surgical History: Reports: Hysterectomy, Salpingo-Oophorectomy, Tubal Ligation, Other (See Below) Other Female Surgeries/Procedures: bladder stimulator, bladder sling, colporrhaphy Social & Family History - Family History Family Medical History: Noncontributory Cardiac: Reports: Bypass, CAD, Heart Failure - Tobacco Use Smoking Status *Q: Current Every Day Smoker Years of Tobacco use: 10 Packs/Tins Daily: 0.2 - Caffeine Use Caffeine Use: Reports: Coffee - Recreational Drug Use Recreational Drug Use: No - Living Situation & Occupation Living situation: Reports: , Other (with ex-) Occupation: Employed ([employer]) ED ROS GENERAL - Review of Systems Review Of Systems: See Below Constitutional: Reports: No Symptoms HEENT: Reports: No Symptoms Respiratory: Reports: No Symptoms Cardiovascular: Reports: No Symptoms Endocrine: Reports: No Symptoms GI/Abdominal: Reports: Abdominal Pain : Reports: Other (Pelvic pain) Musculoskeletal: Reports: No Symptoms ED EXAM, SEPSIS - Physical Exam Exam: See Below Exam Limited By: No Limitations General Appearance: Alert, No Apparent Distress Ears: Normal External Exam Nose: Normal Inspection Head: Atraumatic, Normocephalic Neck: Normal Inspection Respiratory/Chest: No Respiratory Distress, Lungs Clear, Normal Breath Sounds Cardiovascular: Regular Rate, Rhythm, No Edema, No Murmur GI/Abdominal Exam: Soft, No Organomegaly, No Mass, Tender (Moderate tenderness to the lower abdomen) Back: Normal Inspection Extremities: Normal Inspection Course - Vital Signs Last Recorded V/S: Last Vital Signs Temp 99 F 08/21/17 09:01 Pulse 87 08/21/17 09:01 Resp 12 08/21/17 09:01 BP 122/83 08/21/17 09:01 Pulse Ox 98 08/21/17 09:01 - Orders/Labs/Meds Orders: Active Orders 24 hr Category Date Time Status CXR [Chest 2V] [CR] Stat Exams 08/21/17 09:14 Taken UA W/MICROSCOPIC [URIN] Stat Lab 08/21/17 09:30 Ordered Labs: Laboratory Tests 08/21/17 08/21/17 08/21/17 Range/Units 09:30 10:00 10:00 WBC 6.82 (3.98-10.04) K/mm3 RBC 3.86 L (3.98-5.22) M/mm3 Hgb 12.3 (11.2-15.7) gm/L Hct 37.8 (34.1-44.9) % MCV 97.9 H (79.4-94.8) fl MCH 31.9 (25.6-32.2) pg MCHC 32.5 (32.2-35.5) g/dl RDW Std Deviation 47.7 H (36.4-46.3) fL Plt Count 252 (182-369) K/mm3 MPV 10.4 (9.4-12.3) fl Neut % (Auto) 65.7 (34.0-71.1) % Lymph % (Auto) 19.4 (19.3-51.7) % [place] % (Auto) 8.2 (4.7-12.5) % Eos % (Auto) 6.3 H (0.7-5.8) Baso % (Auto) 0.4 (0.1-1.2) % Neut # (Auto) 4.48 (1.56-6.13) K/mm3 Lymph # (Auto) 1.32 (1.18-3.74) K/mm3 [place] # (Auto) 0.56 H (0.24-0.36) K/mm3 Eos # (Auto) 0.43 H (0.04-0.36) K/mm3 Baso # (Auto) 0.03 (0.01-0.08) K/mm3 Sodium 139 (136-145) mEq/L Potassium 4.0 (3.5-5.1) mEq/L Chloride 103 (98-107) mEq/L Carbon Dioxide 27 (21-32) mEq/L Anion Gap 13.0 (5-15) BUN 10 (7-18) mg/dL Creatinine 0.7 (0.55-1.02) mg/dL Est Cr Clr Drug Dosing 84.59 mL/min Estimated GFR (MDRD) > 60 (>60) mL/min BUN/Creatinine Ratio 14.3 (14-18) Glucose 100 (74-106) mg/dL Calcium 9.0 (8.5-10.1) mg/dL Total Bilirubin 0.4 (0.2-1.0) mg/dL AST 73 H (15-37) U/L ALT 98 H (14-59) U/L Alkaline Phosphatase 125 H (46-116) U/L C-Reactive Protein 3.1 H* (<1.0) mg/dL Total Protein 7.1 (6.4-8.2) g/dl Albumin 3.4 (3.4-5.0) g/dl Globulin 3.7 gm/dL Albumin/Globulin Ratio 0.9 L (1-2) Urine Color Yellow (Yellow) Urine Appearance Slt cloudy H (Clear) Urine pH 6.5 (5.0-8.0) Ur Specific [place] 1.025 (1.005-1.030) Urine Protein Negative (Negative) Urine Glucose (UA) Negative (Negative) Urine Ketones Negative (Negative) Urine Occult Blood 2+ H (Negative) Urine Nitrite Positive H (Negative) Urine Bilirubin Negative (Negative) Urine Urobilinogen 0.2 (0.2-1.0) Ur Leukocyte Esterase 1+ H (Negative) Urine RBC 10-20 H (0-5) /hpf Urine WBC 5-10 H (0-5) /hpf Ur Epithelial Cells 5-10 H (0-5) /hpf Urine Bacteria Few (FEW) /hpf Urine Mucus Few (FEW) /hpf Meds: Medications Discontinued Medications Generic Name Dose Route Start Last Admin Trade Name Freq PRN Reason Stop Dose Admin Hydromorphone HCl 1 mg 08/21/17 09:15 08/21/17 09:26 Dilaudid IM 08/21/17 09:16 1 mg ONETIME ONE Administration Hydromorphone HCl 0.5 mg 08/21/17 11:31 Dilaudid IM 08/21/17 11:32 ONETIME ONE Promethazine HCl 25 mg 08/21/17 09:15 08/21/17 09:25 Phenergan IM 08/21/17 09:16 25 mg ONETIME ONE Administration - Re-Assessments/Exams Free Text/Narrative Re-Assessment/Exam: 08/21/17 11:12 I ordered labs, UA, CXR, dilaudid 1mg IM and phenergan 25mg IM. 08/21/17 11:13 Her CBC looks good. Her AST was elevated at 73. Her ALT was elevated at 98. Her alk phos was elevated at 125. Her CRP was 3.1. Her UA shows she has a UTI. Her CXR looks good. Departure - Departure Time of Disposition: 11:25 Disposition: Home, Self-Care 01 Condition: Good Clinical Impression: UTI, Urinary tract infectious disease - Discharge Information Referrals: Candida Limon PA [Primary Care Provider] - 1 Week Forms: ED Department Discharge Additional Instructions: Continue taking your antibiotics and other modications. Please follow up with your doctor if you are worse. - My Orders Last 24 Hours: My Active Orders 08/21/17 09:14 CXR [Chest 2V] [CR] Stat 08/21/17 09:30 UA W/MICROSCOPIC [URIN] Stat - Assessment/Plan Last 24 Hours: My Active Orders 08/21/17 09:14 CXR [Chest 2V] [CR] Stat 08/21/17 09:30 UA W/MICROSCOPIC [URIN] Stat
--- NOTE | 2017-08-23 08:36 | CR ---
Chest: Two views of the chest were obtained. Comparison: Prior chest x-ray of 08/02/17. Heart size and mediastinum are normal. Minimal scarring and atelectasis are seen within both lung bases. Lungs otherwise are clear without acute parenchymal change. Bony structures appear within normal limits for the patient's age. Prior cholecystectomy is noted. Impression: 1. Incidental findings. Nothing acute is seen. Diagnostic code #2
== END 2017-08-21 12:05 | disposition home or self-care (01) ==
LOC: JD.ED 08:22
DX: N39.0 Urinary tract infection, site not specified (principal); E78.00 Pure hypercholesterolemia, unspecified; F17.210 Nicotine dependence, cigarettes, uncomplicated; Z88.6 Allergy status to analgesic agent; Z88.2 Allergy status to sulfonamides; Z88.8 Allergy status to other drugs, medicaments and biological substances
CPT/HCPCS: 36415; 71046; 80053; 81001; 85025; 86140; 96372; 99284; J1170; J2550

== ENCOUNTER 2017-08-23 20:39 | Emergency (ER) | payer MEDICAID ==
[2017-08-23 20:49] VITALS: BP 131/90
[2017-08-23] MEDS ORDERED: Ondansetron 4 MG Tab.DIS PO ONE (22:15)
--- NOTE | 2017-08-23 22:22 | EDM.PDOC ---
ED HPI GENERAL MEDICAL PROBLEM - General Chief Complaint: Genitourinary Problem Stated Complaint: [facility] Time Seen by Provider: 08/23/17 21:36 Source of Information: Reports: Patient History Limitations: Reports: No Limitations - History of Present Illness INITIAL COMMENTS - FREE TEXT/NARRATIVE: The patient states that she underwent removal of the wires and an Interstim spinal stimulator from her lower right back, as well as a concomitant transvaginal bladder sling one week ago, 08/16/2017 at [facility]. She was discharged home that same day with a prescription for [place] 10/325, one tablet up to every 6 hours, #20 tablets, prescribed by her Lifestyle Coordinator, Dr. Phillips. The [place] PMPi indicates that she filled a second prescription, also by Dr. Phillips, for [place] 10/325, #20 tablets. She was seen in this ED by Dr. Santamaria on 08/18/2017 with a complaint of pelvic pain and feeling exhausted. She did not feel that one tablet of [place] every 6 hours was adequate to control her pain. Dr. Santamaria documented that her wounds appeared to be healing satisfactorily. The patient received 1 mg IM Dilaudid and 25 mg IM Phenergan before being discharged home with a prescription for Percocet 10/325, one tablet every 4 hours, #20 tablets. She filled the prescription that same day. Curiously, she told Dr. Santamaria on 08/18/2017 that she was going to cook pickled meat a prescription for an antibiotic that day, however, the patient brought with her today a pill bottle for nitrofurantoin filled on 08/17/2017. She then returned to this ED on 08/21/2017, being seen by Dr. Colon. She reported having a fever up to 102, but was found to be afebrile in the ED. She complained of low back pain and lower abdominal/pelvic pain, in addition to a slight cough and nausea. A CBC, CMP, CRP, urinalysis, and her chest radiograph were all unremarkable. Dr. Colon documented that her urinalysis showed that she had a UTI, however, the patient was already on nitrofurantoin at that time. The patient received 1.5 mg IM Dilaudid and 25 mg IM Phenergan before being discharged home without any new prescriptions. The patient now returns to the ED stating that she had a fever up to 102.5, as measured by an electronic oral thermometer at 05:00, and 101.5 around 20:30. She states that she did not take any treatment for it. She states that she has had nausea and emesis, also untreated, and an occasional cough. She states that she has uncontrolled pelvic pain, felt primarily in the vaginal area. She states that she is out of the pain medications that she was prescribed. The patient states that she has an appointment to follow-up with Dr. Phillips on Thursday, September 14, 2017. Suprapubic Pain Score (Numeric/FACES): 10 - Related Data Allergies Allergy/AdvReac Type Severity Reaction Status Date / Time ibuprofen Allergy Itching Verified 08/21/17 08:59 ketorolac tromethamine Allergy Rash Verified 08/21/17 08:59 [From Toradol] naproxen Allergy Itching Verified 08/21/17 08:59 Sulfa (Sulfonamide Allergy Rash Verified 08/21/17 08:59 Antibiotics) sumatriptan [From Imitrex] Allergy Anaphylactic Verified 08/21/17 08:59 Shock sumatriptan succinate Allergy Anaphylactic Verified 08/21/17 08:59 [From Imitrex] Shock tramadol Allergy Rash Verified 08/21/17 08:59 diphenhydramine HCl AdvReac Headache Verified 08/21/17 08:59 [From Benadryl] MSG Allergy Anxiety Uncoded 08/18/17 10:45 Home Meds: Home Meds oxyCODONE HCl/Acetaminophen [Percocet 10-325 mg Tablet] 1 each PO Q4H PRN #20 tablet 08/18/17 [Rx] Ondansetron [Zofran ODT] 1 tab PO Q8H PRN #10 tab.dis 08/23/17 [Rx] Past Medical History HEENT History: Reports: Impaired Vision Other HEENT History: wears corrective lenses Cardiovascular History: Reports: High Cholesterol (untreated) Gastrointestinal History: Reports: Gastritis (untreated), GERD (untreated) Genitourinary History: Reports: Urinary Incontinence 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 Status post InterStim implant , removed 08/16/2017. Bladder sling 08/16/2017.) Social & Family History - Family History Family Medical History: Noncontributory Cardiac: Reports: Bypass, CAD, Heart Failure - Tobacco Use Smoking Status *Q: Current Every Day Smoker Years of Tobacco use: 10 Packs/Tins Daily: 0.1 - Caffeine Use Caffeine Use: Reports: Soda - Alcohol Use Alcohol Use History: Yes Days Per Week of Alcohol Use: 7 Number of Drinks Per Day: 3 Total Drinks Per Week: 21 Alcohol Use Frequency: Daily - Recreational Drug Use Recreational Drug Use: Yes Drug Use in Last 12 Months: Yes Recreational Drug Type: Reports: Fentanyl, Marijuana/Hashish, Methamphetamine, Other (see below) (Opioids) - Living Situation & Occupation Living situation: Reports: , Other (with ex-) Occupation: Employed ([employer]) ED ROS GENERAL - Review of Systems Review Of Systems: ROS reveals no pertinent complaints other than HPI. ED EXAM, GENERAL - Physical Exam Exam: See Below Exam Limited By: No Limitations General Appearance: Alert, WD/WN, No Apparent Distress Eye Exam: Bilateral Eye: Normal Inspection Ears: Normal External Exam, Hearing Grossly Normal Nose: Normal Inspection, No Blood Throat/Mouth: Normal Inspection, Normal Lips, Normal Voice, No Airway Compromise Head: Atraumatic, Normocephalic Neck: Normal Inspection, Full Range of Motion Respiratory/Chest: No Respiratory Distress, Lungs Clear, Normal Breath Sounds, No Accessory Muscle Use Cardiovascular: Normal Peripheral Pulses, Regular Rate, Rhythm, No Gallop, No JVD, No Murmur, No Rub Peripheral Pulses: 4+: Radial (L), Radial (R) GI/Abdominal: Normal Bowel Sounds, Soft, No Organomegaly, No Distention, No Abnormal Bruit, No Mass, Tender (Mild, suprapubic only. Essentially nontender elsewhere.) (Female) Exam: Deferred Rectal (Female) Exam: Deferred Back Exam: Normal Inspection Extremities: Normal Inspection, Normal Range of Motion, Normal Capillary Refill Neurological: Alert, Oriented, Normal Cognition, No Motor/Sensory Deficits Psychiatric: Depressed Mood Skin Exam: Warm, Dry, Intact, Normal Color, No Rash Course - Vital Signs Last Recorded V/S: Last Vital Signs Temp 36.4 C 08/23/17 20:43 Pulse 88 08/23/17 20:43 Resp 16 08/23/17 20:43 BP 131/90 08/23/17 20:43 Pulse Ox 94 L 08/23/17 20:43 - Orders/Labs/Meds Meds: Medications Discontinued Medications Generic Name Dose Route Start Last Admin Trade Name Freq PRN Reason Stop Dose Admin Ondansetron HCl 4 mg 08/23/17 22:15 08/23/17 22:19 Zofran Odt PO 08/23/17 22:16 4 mg ONETIME ONE Administration - Re-Assessments/Exams Free Text/Narrative Re-Assessment/Exam: 08/23/17 22:17 The patient states that she is out of her prescribed pain medications, however, the [place] indicates that the patient was prescribed 40 tablets of [place] 10/ 325 and 20 tablets of Percocet 10/325 since 08/16/2017. The patient should not have run out of that quantity by this time, and, if Dr. Phillips had intended the patient to remain on opioids long-term, he would have prescribed more. The patient states that she ran out because she was taking one tablet of the [place] every 4 hours. The prescription was written for one tablet every 6 hours, and that is what she told Dr. Santamaria she was taking when she saw him on 08/18/2017. The patient tells me now that she spoke to Dr. Raphael's nurse on or 08/19/2017 or 08/20/2017, BEFORE she saw Dr. Santamaria, and was authorized to increase the frequency to every 4 hours. If that is the case, then why would she have told Dr. Santamaria that she was taking them every 6 hours? When confronted about this, the patient did not have an answer. 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 I do not see an indication for prescribing additional opioids at this time. She has a well-documented history of drug- seeking behavior, which is I believe what is occurring at this time, as well. As the patient had a negative workup for similar symptoms just 2 days ago, a repeat workup was not indicated, however, I will prescribe Zofran ODT. She can then follow-up with Dr. Phillips at her previously scheduled appointment on 09/14. Departure - Departure Time of Disposition: 22:18 Disposition: Home, Self-Care 01 Condition: Good Clinical Impression: Nausea and vomiting, Postoperative pain, Drug-seeking behavior - Discharge Information Prescriptions: Ondansetron [Zofran ODT] 1 tab PO Q8H PRN #10 tab.dis PRN Reason: Nausea/Vomiting Instructions: Nausea and Vomiting, Adult, [id number] Referrals: Bob Phillips MD [Ordering Only Provider] - Forms: ED Department Discharge Additional Instructions: You were seen in the emergency room for fever, chills, nausea, vomiting, and postoperative pain. As you had a negative workup for similar symptoms just 2 days ago, repeat workup was not indicated. You have been started on anti-nausea medicine Zofran. A prescription for Zofran has been sent to the [facility], located in the [facility] grocery store. Dissolve 1 tablet on your tongue up to every 8 hours, as needed for nausea/vomiting. Follow-up with your Lifestyle Coordinator, Dr. Phillips, tomorrow, 08/24/2017, to discuss her postoperative pain. If any other problems, please do not hesitate to return to the ER.
== END 2017-08-23 22:50 | disposition home or self-care (01) ==
LOC: JD.ED 20:39
DX: G89.18 Other acute postprocedural pain (principal); M54.5 Low back pain; R11.2 Nausea with vomiting, unspecified; E78.00 Pure hypercholesterolemia, unspecified; F17.210 Nicotine dependence, cigarettes, uncomplicated; Z76.5 Malingerer [conscious simulation]; Z88.6 Allergy status to analgesic agent; Z88.2 Allergy status to sulfonamides; Z88.8 Allergy status to other drugs, medicaments and biological substances
CPT/HCPCS: 99284; A9270; 99283

== ENCOUNTER 2017-08-30 17:07 | Emergency (ER) | payer MEDICAID ==
[2017-08-30 17:18] VITALS: BP 147/108
[2017-08-30] MEDS ORDERED: Acetaminophen/HYDROcodone 325-10 MG Tab PO ONE (17:50)
--- NOTE | 2017-08-30 17:54 | EDM.PDOC ---
ED HPI GENERAL MEDICAL PROBLEM - General Chief Complaint: Genitourinary Problem Stated Complaint: VAGINAL PAIN Time Seen by Provider: 08/30/17 17:24 Source of Information: Reports: Patient History Limitations: Reports: No Limitations - History of Present Illness INITIAL COMMENTS - FREE TEXT/NARRATIVE: Patient is a 51-year-old female who presents ED complaining of vaginal pain. Patient recently underwent removal wires for a InterStim spinal stimulator from her low right back as well as transvaginal bladder sling 2 weeks ago at [facility]. She was prescribed 10/325 one tablet every [address] Phillips patient presents to the ED today stating she overdid. States she's been lifting items, vacuuming her carpets, carrying groceries, and washing clothes and developed worsening pain to the vagina area. Pain is consistent with previous episodes a little more worse today with recent activity. She states she developed some brownish discharge described a scant from her vagina 2 days ago. There is no blood or foul odor present. She's had no pain with urination. She denies any fever, chills, nausea/vomiting, abdominal pain, dizziness, lightheadedness, or additional complaints. She has appointment Dr. Phillips on Wednesday to be released back to work and hopefully obtain a prescription for narcotics for pain. She last took hydrocodone 10-325 one tab at 2:00 today. She states she attempted this patient to Dr. Phillips [employer] to have more pain medications. Offices were closed due to time change. Vaginal Pain Score (Numeric/FACES): 8 - Related Data Allergies Allergy/AdvReac Type Severity Reaction Status Date / Time ibuprofen Allergy Itching Verified 08/30/17 17:18 ketorolac tromethamine Allergy Rash Verified 08/30/17 17:18 [From Toradol] naproxen Allergy Itching Verified 08/30/17 17:18 Sulfa (Sulfonamide Allergy Rash Verified 08/30/17 17:18 Antibiotics) sumatriptan [From Imitrex] Allergy Anaphylactic Verified 08/30/17 17:18 Shock sumatriptan succinate Allergy Anaphylactic Verified 08/30/17 17:18 [From Imitrex] Shock tramadol Allergy Rash Verified 08/30/17 17:18 diphenhydramine HCl AdvReac Headache Verified 08/30/17 17:18 [From Benadryl] MSG Allergy Anxiety Uncoded 08/30/17 17:18 Home Meds: Home Meds Ondansetron [Zofran ODT] 4 mg PO Q6H PRN 08/30/17 [History] Nitrofurantoin Monohyd/M-Cryst [Macrobid 100 mg Capsule] 100 mg PO BID #10 capsule 08/31/17 [Rx] Past Medical History HEENT History: Reports: Impaired Vision Other HEENT History: wears corrective lenses Cardiovascular History: Reports: High Cholesterol Respiratory History: Reports: Other (See Below) Other Respiratory History: restrictive airway Gastrointestinal History: Reports: Gastritis, GERD Other Gastrointestinal History: esophageal stricture, abdominal pain lower, Genitourinary History: Reports: Urinary Incontinence Other Genitourinary History: implantable device interstim RLQ- removed 08/16/17 [employer] History: Reports: Musculoskeletal History: Reports: Back Pain, Chronic Neurological History: Reports: CVA, Migraines, Seizure, Other (See Below) Other Neuro History: patient reports "nervous tics" Psychiatric History: Reports: Addiction, Anxiety, Depression, Suicide Attempt, Other (See Below) Other Psychiatric History: drug overdose, personality disorder, alcohol withdrawal Endocrine/Metabolic History: Reports: Obesity/BMI 30+ Dermatologic History: Reports: Other (See Below) Other Dermatologic History: skin lesion - Infectious Disease History Infectious Disease History: Reports: Chicken Pox - Past Surgical History GI Surgical History: Reports: Appendectomy, Cholecystectomy, EGD Female Surgical History: Reports: Hysterectomy, Salpingo-Oophorectomy, Tubal Ligation, Other (See Below) Other Female Surgeries/Procedures: recent bladder surgery Social & Family History - Family History Family Medical History: Noncontributory Cardiac: Reports: Bypass, CAD, Heart Failure - Tobacco Use Smoking Status *Q: Current Every Day Smoker Years of Tobacco use: 10 Packs/Tins Daily: 0.5 - Caffeine Use Caffeine Use: Reports: Tea - Recreational Drug Use Recreational Drug Use: No - Living Situation & Occupation Living situation: Reports: , Other (with ex-) Occupation: Employed ([employer]) ED ROS GENERAL - Review of Systems Review Of Systems: ROS reveals no pertinent complaints other than HPI. ED EXAM, RENAL/ - Physical Exam Exam: See Below Exam Limited By: No Limitations General Appearance: Alert, WD/WN, Anxious Eye Exam: Bilateral Eye: PERRL Ears: Hearing Grossly Normal Nose: Normal Inspection Throat/Mouth: Normal Voice, No Airway Compromise Neck: Normal Inspection, Supple Respiratory/Chest: No Respiratory Distress, Lungs Clear, Normal Breath Sounds, No Accessory Muscle Use Cardiovascular: Normal Peripheral Pulses, Regular Rate, Rhythm, No Murmur GI/Abdominal: Normal Bowel Sounds, Soft, Non-Tender, No Organomegaly, No Distention (Female) Exam: Deferred Back Exam: Normal Inspection, Other (Incisions to the right lower back and mid back in the late stages of healing. No redness, swelling, drainage noted.). No : CVA Tenderness (L), CVA Tenderness (R) Extremities: Normal Inspection Neurological: Alert, Oriented, CN II-XII Intact, Normal Cognition, No Motor/ Sensory Deficits Psychiatric: Normal Affect, Normal Mood Skin Exam: Warm, Dry, Intact, Normal Color, No Rash Course - Vital Signs Last Recorded V/S: Last Vital Signs Temp 98.2 F 08/30/17 17:15 Pulse 98 08/30/17 17:15 Resp 18 08/30/17 17:15 BP 147/108 H 08/30/17 17:15 Pulse Ox 99 08/30/17 17:15 - Orders/Labs/Meds Orders: Active Orders 24 hr Category Date Time Status CULTURE URINE [RM] Stat Lab 08/30/17 18:40 Results DRUG SCREEN, URINE [URCHEM] Stat Lab 08/30/17 18:40 Ordered Labs: Laboratory Tests 08/30/17 08/30/17 Range/Units 18:40 18:40 Urine Color Yellow (Yellow) Urine Appearance Cloudy H (Clear) Urine pH 7.0 (5.0-8.0) Ur Specific [place] 1.025 (1.005-1.030) Urine Protein 1+ H (Negative) Urine Glucose (UA) Negative (Negative) Urine Ketones Trace H (Negative) Urine Occult Blood 2+ H (Negative) Urine Nitrite Positive H (Negative) Urine Bilirubin Negative (Negative) Urine Urobilinogen 1.0 (0.2-1.0) Ur Leukocyte Esterase 2+ H (Negative) Urine RBC 10-20 H (0-5) /hpf Urine WBC 40-50 H (0-5) /hpf Ur Epithelial Cells 10-20 H (0-5) /hpf Urine Bacteria Many H (FEW) /hpf Urine Mucus Not seen (FEW) /hpf Urine Opiates Screen Presumptive positive H (NEGATIVE) Ur Buprenorphine Scrn Negative (NEGATIVE) Ur Oxycodone Screen Negative (NEGATIVE) Urine Methadone Screen Negative (NEGATIVE) Ur Propoxyphene Screen Negative (NEGATIVE) Ur Barbiturates Screen Negative (NEGATIVE) Ur Tricyclics Screen Negative (NEGATIVE) Ur Phencyclidine Scrn Negative (NEGATIVE) Ur Amphetamine Screen Negative (NEGATIVE) U Methamphetamines Scrn Negative (NEGATIVE) U Benzodiazepines Scrn Presumptive positive H (NEGATIVE) U Cocaine Metab Screen Negative (NEGATIVE) U Marijuana (THC) Screen Negative (NEGATIVE) Meds: Medications Discontinued Medications Generic Name Dose Route Start Last Admin Trade Name Freq PRN Reason Stop Dose Admin Hydrocodone Bitart/Acetaminophen 1 tab 08/30/17 17:50 08/30/17 18:24 [place] 325-10 Mg PO 08/30/17 17:51 1 tab ONETIME ONE Administration - Re-Assessments/Exams Free Text/Narrative Re-Assessment/Exam: Will obtain a UA, urine drug tox, and wet prep. Patient states she has some abnormal vaginal discharge that started yesterday. She has no pain with urination. Reports taking her last narcotic pain medication at 2:00 today. She refuses any labs. On examination there is no pain to the belly or suprapubic region. Patient's discomfort is to her area. She defers examination. She has a follow-up appointment this coming Wednesday with [employer] provider. Patient refuses blood work and or any studies. Wet Prep: Yeast non-, Trichomonas non-, clue cells none, WBCs moderate, RBCs moderate, epithelial cells few. UA came back with appearance cloudy, protein one plus, ketones trace, occult blood 2+, positive nitrates, leukocyte esterase 2+, urine RBC 10-20, urine wbc' s 40-50, urine epithelial cells 10-20, bacteria many. Patient has no voiding symptoms. Thus have opted to obtain a urine culture prior to treating. Urine culture preliminary results positive for Escherichia coli 90,000-100,000 colony units. I spoke with the patient and transmitted a prescription for Macrobid 100 mg twice a day for 5 days to her pharmacy of choice. Patient has seen her [employer] specialist tomorrow and will discuss this with him. Patient will follow up with PCP in 7 days for recheck to ensure resolution. Departure - Departure Time of Disposition: 18:10 Disposition: Home, Self-Care 01 Condition: Good Clinical Impression: History of bladder suspension procedure, Vaginal pain - Discharge Information Prescriptions: Nitrofurantoin Monohyd/M-Cryst [Macrobid 100 mg Capsule] 100 mg PO BID #10 capsule Referrals: Candida Limon PA [Primary Care Provider] - Forms: ED Department Discharge Additional Instructions: See paper discharge. - My Orders Last 24 Hours: My Active Orders 08/30/17 18:40 CULTURE URINE [RM] Stat DRUG SCREEN, URINE [URCHEM] Stat - Assessment/Plan Last 24 Hours: My Active Orders 08/30/17 18:40 CULTURE URINE [RM] Stat DRUG SCREEN, URINE [URCHEM] Stat
== END 2017-08-30 19:45 | disposition home or self-care (01) ==
LOC: JD.ED 17:07
DX: R10.2 Pelvic and perineal pain (principal); Z98.890 Other specified postprocedural states; F17.210 Nicotine dependence, cigarettes, uncomplicated; E78.00 Pure hypercholesterolemia, unspecified; K21.9 Gastro-esophageal reflux disease without esophagitis; F41.9 Anxiety disorder, unspecified; F32.9 Major depressive disorder, single episode, unspecified; Z88.8 Allergy status to other drugs, medicaments and biological substances; Z88.6 Allergy status to analgesic agent; Z88.2 Allergy status to sulfonamides
CPT/HCPCS: 80306; 81001; 87086; 87210; 87808; 99283; A9270; 87088; 87186

== ENCOUNTER 2017-09-05 21:07 | Emergency (ER) | payer MEDICAID ==
[2017-09-05 21:16] VITALS: BP 122/88
== END 2017-09-05 22:12 | disposition left against medical advice (07) ==
LOC: JD.ED 21:07
DX: Z53.21 Procedure and treatment not carried out due to patient leaving prior to being seen by health care provider (principal)

== ENCOUNTER 2017-09-11 14:27 | Emergency (ER) | payer MEDICAID ==
[2017-09-11 14:38] VITALS: BP 124/80
[2017-09-11] MEDS ORDERED: Naproxen 500 MG Tab PO ONE (15:09)
--- NOTE | 2017-09-11 15:12 | EDM.PDOC ---
ED HPI GENERAL MEDICAL PROBLEM - General Chief Complaint: SCHOOL AIDE Problem Stated Complaint: PELVIC PAIN Time Seen by Provider: 09/11/17 15:01 Source of Information: Reports: Patient History Limitations: Reports: No Limitations - History of Present Illness INITIAL COMMENTS - FREE TEXT/NARRATIVE: Patient is a 51-year-old female whose been seen multiple times in the ED complaining of pelvic pain. Patient states the pain is consistent with previous episodes. Patient recently underwent removal wires for a InterStim spinal stimulator from her low right back as well as transvaginal bladder sling this past June. She has been seen in the ED multiple times for pelvic pain with request for narcotics for pain management. She's been seen twice by me as a recent diagnosis of UTI growing out Klebsiella first part of August. She was treated and evaluated by her SCHOOL AIDE doctor this past Wednesday with no concerning findings. UTI is resolved. There is no blood or foul odor discharge present. She 's had no pain with urination. She denies any fever, chills, nausea/vomiting, abdominal pain, dizziness, lightheadedness, or additional complaints. She has appointment with Dr. Phillips scheduled for this coming Wednesday. Patient has returned to work and continues to not follow instructions by SCHOOL AIDE. States she has been taking tylenol only for pain. She did not tell me she was on demerol without further questioning. Right Pelvic Pain Score (Numeric/FACES): 8 - Related Data Allergies Allergy/AdvReac Type Severity Reaction Status Date / Time ibuprofen Allergy Itching Verified 09/05/17 21:16 ketorolac tromethamine Allergy Rash Verified 09/05/17 21:16 [From Toradol] naproxen Allergy Itching Verified 09/05/17 21:16 Sulfa (Sulfonamide Allergy Rash Verified 09/05/17 21:16 Antibiotics) sumatriptan [From Imitrex] Allergy Anaphylactic Verified 09/05/17 21:16 Shock sumatriptan succinate Allergy Anaphylactic Verified 09/05/17 21:16 [From Imitrex] Shock tramadol Allergy Rash Verified 09/05/17 21:16 diphenhydramine HCl AdvReac Headache Verified 09/05/17 21:16 [From Benadryl] MSG Allergy Anxiety Uncoded 09/05/17 21:16 Home Meds: Home Meds Ondansetron [Zofran ODT] 4 mg PO Q6H PRN 08/30/17 [History] Past Medical History HEENT History: Reports: Impaired Vision Other HEENT History: wears corrective lenses Cardiovascular History: Reports: High Cholesterol Respiratory History: Reports: Other (See Below) Other Respiratory History: restrictive airway Gastrointestinal History: Reports: Gastritis, GERD Other Gastrointestinal History: esophageal stricture, abdominal pain lower, Genitourinary History: Reports: Urinary Incontinence Other Genitourinary History: implantable device interstim RLQ- removed 08/16/17 SCHOOL AIDE History: Reports: Musculoskeletal History: Reports: Back Pain, Chronic Neurological History: Reports: CVA, Migraines, Seizure, Other (See Below) Other Neuro History: patient reports "nervous tics" Psychiatric History: Reports: Addiction, Anxiety, Depression, Suicide Attempt, Other (See Below) Other Psychiatric History: drug overdose, personality disorder, alcohol withdrawal Endocrine/Metabolic History: Reports: Obesity/BMI 30+ Dermatologic History: Reports: Other (See Below) Other Dermatologic History: skin lesion - Infectious Disease History Infectious Disease History: Reports: Chicken Pox - Past Surgical History GI Surgical History: Reports: Appendectomy, Cholecystectomy, EGD Female Surgical History: Reports: Hysterectomy, Salpingo-Oophorectomy, Tubal Ligation, Other (See Below) Other Female Surgeries/Procedures: recent bladder surgery Social & Family History - Family History Family Medical History: Noncontributory Cardiac: Reports: Bypass, CAD, Heart Failure - Tobacco Use Smoking Status *Q: Current Every Day Smoker Years of Tobacco use: 10 Packs/Tins Daily: 0.3 - Caffeine Use Caffeine Use: Reports: Tea - Recreational Drug Use Recreational Drug Use: No - Living Situation & Occupation Living situation: Reports: , Other (with ex-) Occupation: Employed ([employer]) ED ROS GENERAL - Review of Systems Review Of Systems: ROS reveals no pertinent complaints other than HPI. ED EXAM, RENAL/ - Physical Exam Exam: See Below Exam Limited By: No Limitations General Appearance: Alert, WD/WN, No Apparent Distress Ears: Hearing Grossly Normal Nose: Normal Inspection Throat/Mouth: Normal Voice, No Airway Compromise Neck: Normal Inspection, Supple Respiratory/Chest: No Respiratory Distress, Lungs Clear, Normal Breath Sounds, No Accessory Muscle Use Cardiovascular: Normal Peripheral Pulses, Regular Rate, Rhythm GI/Abdominal: Normal Bowel Sounds, Soft, Non-Tender, No Organomegaly, No Distention (Female) Exam: Deferred Back Exam: Normal Inspection, Full Range of Motion Neurological: Alert, Oriented, CN II-XII Intact, Normal Cognition, No Motor/ Sensory Deficits Psychiatric: Normal Affect, Normal Mood Skin Exam: Warm, Dry, Intact, Normal Color Course - Vital Signs Last Recorded V/S: Last Vital Signs Temp 98.6 F 09/11/17 14:35 Pulse 88 09/11/17 14:35 Resp 18 09/11/17 14:35 BP 124/80 09/11/17 14:35 Pulse Ox 99 09/11/17 14:35 - Orders/Labs/Meds Meds: Medications Discontinued Medications Generic Name Dose Route Start Last Admin Trade Name Freq PRN Reason Stop Dose Admin Naproxen 500 mg 09/11/17 15:09 09/11/17 15:14 Naprosyn PO 09/11/17 15:10 500 mg ONETIME ONE Administration - Re-Assessments/Exams Free Text/Narrative Re-Assessment/Exam: Offered aleve. Patient states she does take Aleve on a regular basis. Has intermittent itching with no hives or anaphylactic reaction. She has agreed to take the Aleve. No narcotic med's will be provided. Patient did not offer with medication reconciliation she is taking meperidine. Last filled by Dr. Degroot 09/07/2017. Will discharge patient home with instructions as documented. Departure - Departure Time of Disposition: 15:24 Disposition: Home, Self-Care 01 Condition: Good Clinical Impression: Pain in pelvis, Genitourinary pain - Discharge Information Instructions: Pelvic Pain, Female, Pain Medicine Instructions, [id number] Referrals: Candida Limon PA [Primary Care Provider] - Forms: ED Department Discharge Additional Instructions: Continue with pain therapy plan by SCHOOL AIDE specialists. Keep appt with SCHOOL AIDE specialists this coming Wednesday. Continue to take aleve and tylenol for pain. Return to the E.D. for any new or worsening symptoms.
== END 2017-09-11 15:35 | disposition home or self-care (01) ==
LOC: JD.ED 14:27
DX: R10.2 Pelvic and perineal pain (principal); E78.00 Pure hypercholesterolemia, unspecified; F17.210 Nicotine dependence, cigarettes, uncomplicated; Z88.6 Allergy status to analgesic agent; Z88.2 Allergy status to sulfonamides; Z88.5 Allergy status to narcotic agent; Z88.8 Allergy status to other drugs, medicaments and biological substances
CPT/HCPCS: 99284; A9270; 99283

== ENCOUNTER 2017-09-25 14:15 | Emergency (ER) | payer MEDICAID ==
[2017-09-25 14:43] VITALS: BP 139/103
[2017-09-25] MEDS ORDERED: Sodium Chloride 0.9% 10 ML Syringe FLUSH PRN (15:52)
[2017-09-25] MEDS ORDERED: Alum Hydrox/Mag Hydrox/Simeth 30 ML, Lidocaine 2% 15 ML PO ONE ×2 (15:55)
--- NOTE | 2017-09-25 16:00 | EDM.PDOC ---
ED HPI GENERAL MEDICAL PROBLEM - General Chief Complaint: Chest Pain Stated Complaint: CHEST PAIN Time Seen by Provider: 09/25/17 15:35 Source of Information: Reports: Patient History Limitations: Reports: No Limitations - History of Present Illness INITIAL COMMENTS - FREE TEXT/NARRATIVE: Patient is a 51-year-old female who has been seen multiple times in the ED following bladder sling surgery August 16 in [place]. She has been seen multiple times for worsening pain here in the ED. She presents to the ED today after a 2 day history of complaining of sharp left midclavicular chest discomfort worsened with taking a deep breath and palpation. Pain does radiate into her left arm. Comes and goes waxes and wanes with intensity. She's been coughing excessively with nothing produced. There's been no sinus congestion, runny nose , sore throat or recent sick exposures. Patient states she just returned from a long road trip with her . He is a over the road amusement ride operator. They traveled approximately 3000 miles. She denies any pain or swelling to her lower extremity. She has no history of blood clots, hemoptysis, and n/v. She has a history of acid reflux and is on a PPI. She has stopped all her home medications. Denies taking any narcotics. In addition she stopped smoking 3 days ago. Left Middle Chest Pain Score (Numeric/FACES): 7 - Related Data Allergies Allergy/AdvReac Type Severity Reaction Status Date / Time ibuprofen Allergy Itching Verified 09/05/17 21:16 ketorolac tromethamine Allergy Rash Verified 09/05/17 21:16 [From Toradol] naproxen Allergy Itching Verified 09/05/17 21:16 Sulfa (Sulfonamide Allergy Rash Verified 09/05/17 21:16 Antibiotics) sumatriptan [From Imitrex] Allergy Anaphylactic Verified 09/05/17 21:16 Shock sumatriptan succinate Allergy Anaphylactic Verified 09/05/17 21:16 [From Imitrex] Shock tramadol Allergy Rash Verified 09/05/17 21:16 diphenhydramine HCl AdvReac Headache Verified 09/05/17 21:16 [From Benadryl] MSG Allergy Anxiety Uncoded 09/05/17 21:16 Home Meds: Home Meds Ondansetron [Zofran ODT] 4 mg PO Q6H PRN 08/30/17 [History] Past Medical History HEENT History: Reports: Impaired Vision Other HEENT History: wears corrective lenses Cardiovascular History: Reports: High Cholesterol Respiratory History: Reports: Other (See Below) Other Respiratory History: restrictive airway Gastrointestinal History: Reports: Gastritis, GERD Other Gastrointestinal History: esophageal stricture, abdominal pain lower, Genitourinary History: Reports: Urinary Incontinence Other Genitourinary History: implantable device interstim RLQ- removed 08/16/17 [employer]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: Musculoskeletal History: Reports: Back Pain, Chronic Neurological History: Reports: CVA, Migraines, Seizure, Other (See Below) Other Neuro History: patient reports "nervous tics" Psychiatric History: Reports: Addiction, Anxiety, Depression, Suicide Attempt, Other (See Below) Other Psychiatric History: drug overdose, personality disorder, alcohol withdrawal Endocrine/Metabolic History: Reports: Obesity/BMI 30+ Dermatologic History: Reports: Other (See Below) Other Dermatologic History: skin lesion - Infectious Disease History Infectious Disease History: Reports: Chicken Pox - Past Surgical History GI Surgical History: Reports: Appendectomy, Cholecystectomy, EGD Female Surgical History: Reports: Hysterectomy, Salpingo-Oophorectomy, Tubal Ligation, Other (See Below) Other Female Surgeries/Procedures: recent bladder surgery Social & Family History - Family History Family Medical History: Noncontributory Cardiac: Reports: Bypass, CAD, Heart Failure - Tobacco Use Smoking Status *Q: Former Smoker Used Tobacco, but Quit: Yes Month/Year Tobacco Last Used: 4 days ago - Caffeine Use Caffeine Use: Reports: Tea - Recreational Drug Use Recreational Drug Use: No - Living Situation & Occupation Living situation: Reports: , Other (with ex-) Occupation: Employed ([employer]) ED ROS GENERAL - Review of Systems Review Of Systems: See Below Constitutional: Reports: No Symptoms HEENT: Reports: No Symptoms Respiratory: Reports: Shortness of Breath, Pleuritic Chest Pain, Cough. Denies : Wheezing, Sputum, Hemoptysis Cardiovascular: Reports: Chest Pain, Dyspnea on Exertion. Denies: Edema, Palpitations, Syncope GI/Abdominal: Reports: No Symptoms, Decreased Appetite, Nausea (intermittent since surgery aug 16 2017. ). Denies: Diarrhea, Vomiting : Reports: No Symptoms (currently) Musculoskeletal: Reports: No Symptoms ED EXAM, GENERAL - Physical Exam Exam: See Below Exam Limited By: No Limitations General Appearance: Alert, WD/WN, Mild Distress Eye Exam: Bilateral Eye: PERRL Ears: Hearing Grossly Normal Nose: Normal Inspection Throat/Mouth: Normal Voice, No Airway Compromise Neck: Normal Inspection, Supple Respiratory/Chest: No Respiratory Distress, Lungs Clear, Normal Breath Sounds, No Accessory Muscle Use, Other (Tenderness noted to the anterior lateral chest along the left breast worse with palpation. No bony abnormalities, rash, swelling, bruising, or any additional concerning findings.) Cardiovascular: Normal Peripheral Pulses, Regular Rate, Rhythm, No Murmur Peripheral Pulses: 4+: Radial (L), Radial (R) GI/Abdominal: Normal Bowel Sounds, Soft, Non-Tender, No Organomegaly, No Distention Back Exam: Normal Inspection Extremities: Normal Inspection, Normal Range of Motion, Non-Tender, No Pedal Edema, Normal Capillary Refill Neurological: Alert, Oriented, CN II-XII Intact, Normal Cognition, No Motor/ Sensory Deficits Psychiatric: Normal Affect, Normal Mood Skin Exam: Warm, Dry, Intact, Normal Color, No Rash Course - Vital Signs Last Recorded V/S: Last Vital Signs Temp 97.8 F 09/25/17 14:42 Pulse 92 09/25/17 14:42 Resp 19 09/25/17 14:42 BP 139/103 H 09/25/17 14:42 Pulse Ox 100 09/25/17 14:42 - Orders/Labs/Meds Orders: Active Orders 24 hr Category Date Time Status EKG Documentation Completion [RC] STAT Care 09/25/17 15:52 Active Peripheral IV Care [RC] . DIRECTED Care 09/25/17 15:53 Active Chest 1V Frontal [CR] Stat Exams 09/25/17 15:52 Taken CULTURE URINE [RM] Stat Lab 09/25/17 16:05 Received DRUG SCREEN, URINE [URCHEM] Stat Lab 09/25/17 16:05 Ordered Sodium Chloride 0.9% [Saline Flush] Med 09/25/17 15:52 Active 10 ml FLUSH ASDIRECTED PRN Peripheral IV Insertion Adult [OM.PC] Routine Oth 09/25/17 15:52 Ordered Medication Orders Sodium Chloride (Saline Flush) 10 ml FLUSH ASDIRECTED PRN PRN Reason: Keep Vein Open Last Admin: 09/25/17 16:12 Dose: 10 ml Labs: Laboratory Tests 09/25/17 09/25/17 09/25/17 Range/Units 16:05 16:05 16:05 WBC (3.98-10.04) K/mm3 RBC (3.98-5.22) M/mm3 Hgb (11.2-15.7) gm/L Hct (34.1-44.9) % MCV (79.4-94.8) fl MCH (25.6-32.2) pg MCHC (32.2-35.5) g/dl RDW Std Deviation (36.4-46.3) fL Plt Count (182-369) K/mm3 MPV (9.4-12.3) fl Neutrophils % (Manual) (40-60) % Band Neutrophils % (0-10) % Lymphocytes % (Manual) (20-40) % Atypical Lymphs % % Monocytes % (Manual) (2-10) % Eosinophils % (Manual) (0.7-5.8) % Basophils % (Manual) (0.1-1.2) Platelet Estimate RBC Morph Comment D-Dimer, Quantitative 0.25 (0.19-0.50) mg/L Sodium (136-145) mEq/L Potassium (3.5-5.1) mEq/L Chloride (98-107) mEq/L Carbon Dioxide (21-32) mEq/L Anion Gap (5-15) BUN (7-18) mg/dL Creatinine (0.55-1.02) mg/dL Est Cr Clr Drug Dosing mL/min Estimated GFR (MDRD) (>60) mL/min BUN/Creatinine Ratio (14-18) Glucose (74-106) mg/dL Calcium (8.5-10.1) mg/dL Total Bilirubin (0.2-1.0) mg/dL AST ALT Alkaline Phosphatase (46-116) U/L Troponin I (0.00-0.056) ng/mL C-Reactive Protein (<1.0) mg/dL Total Protein (6.4-8.2) g/dl Albumin (3.4-5.0) g/dl Globulin gm/dL Albumin/Globulin Ratio (1-2) Lipase (73-393) U/L Urine Color Yellow (Yellow) Urine Appearance Slt cloudy H (Clear) Urine pH 7.0 (5.0-8.0) Ur Specific [place] 1.020 (1.005-1.030) Urine Protein Negative (Negative) Urine Glucose (UA) Negative (Negative) Urine Ketones Negative (Negative) Urine Occult Blood Negative (Negative) Urine Nitrite Positive H (Negative) Urine Bilirubin Negative (Negative) Urine Urobilinogen 0.2 (0.2-1.0) Ur Leukocyte Esterase 2+ H (Negative) Urine RBC 0-5 (0-5) /hpf Urine WBC 10-20 H (0-5) /hpf Ur Epithelial Cells 10-20 H (0-5) /hpf Urine Bacteria Many H (FEW) /hpf Urine Mucus Few (FEW) /hpf Urine Opiates Screen Negative (NEGATIVE) Ur Buprenorphine Scrn Negative (NEGATIVE) Ur Oxycodone Screen Negative (NEGATIVE) Urine Methadone Screen Negative (NEGATIVE) Ur Propoxyphene Screen Negative (NEGATIVE) Acetaminophen (10-30) ug/mL Ur Barbiturates Screen Negative (NEGATIVE) Ur Tricyclics Screen Negative (NEGATIVE) Ur Phencyclidine Scrn Negative (NEGATIVE) Ur Amphetamine Screen Negative (NEGATIVE) U Methamphetamines Scrn Negative (NEGATIVE) U Benzodiazepines Scrn Negative (NEGATIVE) U Cocaine Metab Screen Negative (NEGATIVE) U Marijuana (THC) Screen Negative (NEGATIVE) 09/25/17 09/25/17 Range/Units 16:20 16:20 WBC 5.82 (3.98-10.04) K/mm3 RBC 4.45 (3.98-5.22) M/mm3 Hgb 14.4 (11.2-15.7) gm/L Hct 42.7 (34.1-44.9) % MCV 96.0 H (79.4-94.8) fl MCH 32.4 H (25.6-32.2) pg MCHC 33.7 (32.2-35.5) g/dl RDW Std Deviation 43.1 (36.4-46.3) fL Plt Count 335 (182-369) K/mm3 MPV 10.7 (9.4-12.3) fl Neutrophils % (Manual) 55 (40-60) % Band Neutrophils % 0 (0-10) % Lymphocytes % (Manual) 41 H (20-40) % Atypical Lymphs % 0 % Monocytes % (Manual) 0 L (2-10) % Eosinophils % (Manual) 4 (0.7-5.8) % Basophils % (Manual) 0 L (0.1-1.2) Platelet Estimate Adequate RBC Morph Comment Normal D-Dimer, Quantitative (0.19-0.50) mg/L Sodium 142 (136-145) mEq/L Potassium 3.3 L (3.5-5.1) mEq/L Chloride 105 (98-107) mEq/L Carbon Dioxide 23 (21-32) mEq/L Anion Gap 17.3 H (5-15) BUN 9 (7-18) mg/dL Creatinine 0.8 (0.55-1.02) mg/dL Est Cr Clr Drug Dosing 74.02 mL/min Estimated GFR (MDRD) > 60 (>60) mL/min BUN/Creatinine Ratio 11.3 L (14-18) Glucose 124 H (74-106) mg/dL Calcium 8.5 (8.5-10.1) mg/dL Total Bilirubin 0.2 (0.2-1.0) mg/dL AST TNP ALT TNP Alkaline Phosphatase 145 H (46-116) U/L Troponin I < 0.017 (0.00-0.056) ng/mL C-Reactive Protein < 0.2 (<1.0) mg/dL Total Protein 7.6 (6.4-8.2) g/dl Albumin 3.8 (3.4-5.0) g/dl Globulin 3.8 gm/dL Albumin/Globulin Ratio 1.0 (1-2) Lipase 174 (73-393) U/L Urine Color (Yellow) Urine Appearance (Clear) Urine pH (5.0-8.0) Ur Specific [place] (1.005-1.030) Urine Protein (Negative) Urine Glucose (UA) (Negative) Urine Ketones (Negative) Urine Occult Blood (Negative) Urine Nitrite (Negative) Urine Bilirubin (Negative) Urine Urobilinogen (0.2-1.0) Ur Leukocyte Esterase (Negative) Urine RBC (0-5) /hpf Urine WBC (0-5) /hpf Ur Epithelial Cells (0-5) /hpf Urine Bacteria (FEW) /hpf Urine Mucus (FEW) /hpf Urine Opiates Screen (NEGATIVE) Ur Buprenorphine Scrn (NEGATIVE) Ur Oxycodone Screen (NEGATIVE) Urine Methadone Screen (NEGATIVE) Ur Propoxyphene Screen (NEGATIVE) Acetaminophen 0 L (10-30) ug/mL Ur Barbiturates Screen (NEGATIVE) Ur Tricyclics Screen (NEGATIVE) Ur Phencyclidine Scrn (NEGATIVE) Ur Amphetamine Screen (NEGATIVE) U Methamphetamines Scrn (NEGATIVE) U Benzodiazepines Scrn (NEGATIVE) U Cocaine Metab Screen (NEGATIVE) U Marijuana (THC) Screen (NEGATIVE) Meds: Medications Generic Name Dose Route Start Last Admin Trade Name Freq PRN Reason Stop Dose Admin Sodium Chloride 10 ml 09/25/17 15:52 09/25/17 16:12 Saline Flush FLUSH 10 ml ASDIRECTED PRN Administration Keep Vein Open Discontinued Medications Generic Name Dose Route Start Last Admin Trade Name Freq PRN Reason Stop Dose Admin Al Hydroxide/Mg Hydroxide 30 0 ml 09/25/17 15:55 09/25/17 16:12 ml/ Lidocaine HCl 15 ml PO 09/25/17 15:56 45 ml ONETIME ONE Administration Promethazine HCl 25 mg 09/25/17 16:52 09/25/17 17:05 Phenergan IM 09/25/17 16:53 25 mg ONETIME ONE Administration - Re-Assessments/Exams Free Text/Narrative Re-Assessment/Exam: Patient is a 51-year-old female who presents to the ED complaining of left- sided chest discomfort that is described as sharp in nature worsened with taking a deep breath that radiates into her left arm intermittently. She recently returned home from a long trip with her who is a floor covering contractor. They put on approximately 3000 miles. Symptoms came about after returning home. She does have significant cough that is not productive. She denies any acid reflux. She has no history of DVT/PE. IV established. Initial labs will include CBC, chem 14, CRP, d-dimer, urine drug tox, lipase, troponin, UA, EKG, and chest x-ray one view. I have ordered Tylenol and also GI cocktail. 09/25/17 16:20 EKG sinus rhythm at a rate 89. No acute ST changes noted. Nursing staff states patient is requesting medications for anxiety. I have deferred. Labs reviewed: CBC essentially normal. She panel revealed potassium 3.3, AG 17.3 , glucose 124, troponin less than 0.017, CRP less than 0.2. Lipase 174. UA came back positive for leukocyte esterase and urine wbc's with positive nitrates. Multiple epithelial cells present. Bacteria many. Urine culture obtained. This appears to be contaminated. Discussed findings with patient. She has been anxious since being admitted to the ED. She has asked for antianxiety meds multiple times. I deferred treatment. She's been seen here multiple times seeking pain medications. Discussed with the patient to follow up with PCP to discuss further treatment for anxiety and depression. In addition I advised her that urine culture will be obtained. If positive she'll be notified and antibiotic will be provided. She had no further questions or concerns. Agree with the plan. Return precautions discussed with the patient. Suspect cause of discomfort to the chest is muscle skeletal in nature. Departure - Departure Time of Disposition: 18:36 Disposition: Home, Self-Care 01 Condition: Good Clinical Impression: Chest wall pain Instructions: Chest Wall Pain, [id number], Nonspecific Chest Pain, Easy-to- Read Referrals: Candida Limon PA [Primary Care Provider] - Forms: ED Department Discharge Additional Instructions: See your PCP this coming week for reevaluation and discuss further management for anxiety. Treatment at this point will consist of Tylenol 650 mg every 6 hours. Refrain from any activities that cause worsening pain. Return to the ED if you develop any new or worsening symptoms. - My Orders Last 24 Hours: My Active Orders 09/25/17 15:52 EKG Documentation Completion [RC] STAT Chest 1V Frontal [CR] Stat Sodium Chloride 0.9% [Saline Flush] 10 ml FLUSH ASDIRECTED PRN Peripheral IV Insertion Adult [OM.PC] Routine 09/25/17 15:53 Peripheral IV Care [RC] . DIRECTED 09/25/17 16:05 CULTURE URINE [RM] Stat DRUG SCREEN, URINE [URCHEM] Stat - Assessment/Plan Last 24 Hours: My Active Orders 09/25/17 15:52 EKG Documentation Completion [RC] STAT Chest 1V Frontal [CR] Stat Sodium Chloride 0.9% [Saline Flush] 10 ml FLUSH ASDIRECTED PRN Peripheral IV Insertion Adult [OM.PC] Routine 09/25/17 15:53 Peripheral IV Care [RC] . DIRECTED 09/25/17 16:05 CULTURE URINE [RM] Stat DRUG SCREEN, URINE [URCHEM] Stat
[2017-09-25] MEDS ORDERED: Promethazine 25 MG/ML SDV IM ONE (16:52)
[2017-09-25 17:13] LABS: ACETAMINOPHEN 0 ug/mL (10-30)
--- NOTE | 2017-09-27 07:29 | CR ---
Chest: Portable view of the chest was obtained. Comparison: Prior chest x-ray of 08/21/17. Heart size and mediastinum are normal. Lungs are clear without acute parenchymal densities. Bony structures are grossly intact. Impression: 1. Nothing acute is seen on portable chest x-ray. Diagnostic code #1
== END 2017-09-25 18:57 | disposition home or self-care (01) ==
LOC: JD.ED 14:15
DX: R07.89 Other chest pain (principal); E78.00 Pure hypercholesterolemia, unspecified; Z88.6 Allergy status to analgesic agent; Z88.2 Allergy status to sulfonamides; Z79.899 Other long term (current) drug therapy; Z88.8 Allergy status to other drugs, medicaments and biological substances
CPT/HCPCS: 36415; 71045; 80053; 80306; 81001; 83690; 84484; 85007; 85027; 85379; 86140; 87086; 87088; 87186; 93005; 96372; 99285; A9270; G0480; J2550; J7050; 99284

== ENCOUNTER 2017-11-23 13:00 | Emergency (ER) | payer MEDICAID | END 2017-11-23 13:25 | disposition left against medical advice (07) | LOC: JD.ED 13:00 | DX: Z53.21 Procedure and treatment not carried out due to patient leaving prior to being seen by health care provider (principal) ==

== ENCOUNTER 2017-11-24 10:57 | Emergency (ER) | payer MEDICAID ==
[2017-11-24 11:18] VITALS: BP 144/96
--- NOTE | 2017-11-24 11:19 | EDM.PDOC ---
ED HPI GENERAL MEDICAL PROBLEM - General Chief Complaint: Neuro Symptoms/Deficits Stated Complaint: NECK PAIN Time Seen by Provider: 11/24/17 11:12 Source of Information: Reports: Patient History Limitations: Reports: No Limitations - History of Present Illness INITIAL COMMENTS - FREE TEXT/NARRATIVE: 52-year-old female presents to the clinic after being referred from the family medicine unit by Rhoda Limon. Patient is what I believe to be malingering. She is feigning left-sided weakness on walking with her leg in her arm. At present she is complaining of a severe headache and is known to be a narcotic seeker. She was apparently in the ED yesterday but left before being seen due to provider rat poisoner. Rhoda indicates that the patient was recently hospitalized in [place] due to alcohol detoxification and dehydration. At that time showed an MRI of her cervical spine and found to have herniated cervical disks it's unclear whether they felt there was a surgical problem or not. She had some left arm numbness at that time this apparently is improved but not resolved. She sent to the ED primarily to rule out a CVA because her symptoms seem to worsen while she was in the clinic. However by history symptoms of been present for probably better part of 2 weeks. Onset: Gradual, Unknown/Unsure (Symptoms of been present for 2 weeks. Gradually worsening apparently on the left side.) Onset Date: 11/10/17 Duration: Week(s): Location: Reports: Upper Extremity, Left, Lower Extremity, Left Quality: Reports: Other Severity: Moderate (Weakness with some paresthesias.) Improves with: Reports: None Worsens with: Reports: None Context: Denies: Activity, Exercise, Lifting, Sick Contact, Trauma, Other Associated Symptoms: Reports: Headaches, Malaise, Weakness (Left arm left leg and some funny sensations in the left side of her face at times.). 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 (see below) Headache Pain Score (Numeric/FACES): 10 - Related Data Allergies Allergy/AdvReac Type Severity Reaction Status Date / Time ibuprofen Allergy Itching Verified 11/24/17 11:18 ketorolac tromethamine Allergy Rash Verified 11/24/17 11:18 [From Toradol] naproxen Allergy Itching Verified 11/24/17 11:18 Sulfa (Sulfonamide Allergy Rash Verified 11/24/17 11:18 Antibiotics) sumatriptan [From Imitrex] Allergy Anaphylactic Verified 11/24/17 11:18 Shock sumatriptan succinate Allergy Anaphylactic Verified 11/24/17 11:18 [From Imitrex] Shock tramadol Allergy Rash Verified 11/24/17 11:18 diphenhydramine HCl AdvReac Headache Verified 11/24/17 11:18 [From Benadryl] MSG Allergy Anxiety Uncoded 11/24/17 11:18 Home Meds: Home Meds . 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: Musculoskeletal History: Reports: Back Pain, Chronic Neurological History: Reports: CVA, Migraines, Seizure, Other (See Below) Other Neuro History: patient reports "nervous tics" Psychiatric History: Reports: Addiction, Anxiety, Depression, Suicide Attempt, Other (See Below) Other Psychiatric History: drug overdose, personality disorder, alcohol withdrawal Endocrine/Metabolic History: Reports: Obesity/BMI 30+ Dermatologic History: Reports: Other (See Below) Other Dermatologic History: skin lesion - Infectious Disease History Infectious Disease History: Reports: Chicken Pox - Past Surgical History GI Surgical History: Reports: Appendectomy, Cholecystectomy, EGD Female Surgical History: Reports: Hysterectomy, Salpingo-Oophorectomy, Tubal Ligation, Other (See Below) Other Female Surgeries/Procedures: recent bladder surgery Social & Family History - Family History Family Medical History: Noncontributory Cardiac: Reports: Bypass, CAD, Heart Failure - Caffeine Use Caffeine Use: Reports: Tea - Living Situation & Occupation Living situation: Reports: , Other (with ex-) Occupation: Employed ([employer]) ED ROS GENERAL - Review of Systems Review Of Systems: See Below Constitutional: Reports: Malaise, Weakness, Fatigue. Denies: Fever, Chills HEENT: Reports: No Symptoms Respiratory: Reports: No Symptoms Cardiovascular: Reports: Blood Pressure Problem. Denies: Chest Pain, Claudication, Dyspnea on Exertion, Edema, Lightheadedness, Orthopnea (Mildly elevated) Endocrine: Reports: Fatigue GI/Abdominal: Reports: No Symptoms : Reports: No Symptoms Musculoskeletal: Reports: Neck Pain (Apparently he has numerous herniated disks in her neck by MRI done in [place].), Back Pain ( I have no way of visualizing this MRI.) Skin: Reports: No Symptoms Neurological: Reports: Headache, Numbness, Paresthesia (Left arm left leg and left eduardo-face.), Tingling, Difficulty Walking ( Face left arm left leg.), Weakness (Left arm and leg.). Denies: Confusion, Dizziness, Trouble Speaking Psychiatric: Reports: Anxiety Hematologic/Lymphatic: Reports: No Symptoms Immunologic: Reports: No Symptoms ED EXAM, NEURO - Physical Exam Exam: See Below Exam Limited By: No Limitations General Appearance: Mild Distress, Other (She is walking with an abnormal gait feigning weakness of her left upper extremity and left lower extremity on my assessment.) Eye Exam: Bilateral Eye: Normal Fundi, Normal Inspection, PERRL Throat/Mouth: Normal Inspection, Normal Lips, Normal Teeth, Normal Oropharynx Head Exam: Atraumatic, Normocephalic Neck: Normal Inspection, Supple, Non-Tender, Full Range of Motion. No: Lymphadenopathy (L) Respiratory/Chest: No Respiratory Distress, Lungs Clear, Normal Breath Sounds, No Accessory Muscle Use Cardiovascular: Normal Peripheral Pulses, Regular Rate, Rhythm, No Edema, No Gallop, No Murmur Neurological: Alert, Normal Mood/Affect, Normal Dorsiflexion, CN II-XII Intact, Normal Plantar Flexion, Normal Reflexes, Oriented x 3, Abnormal Finger to Nose, Other (Patient is walking with weakness of the left lower extremity but no true foot drop and left arm hanging by her side. However her reflexes are intact and she has full motor power and tone on assessment. Clinically there is no evidence of significant motor loss or function in the left upper extremity or lower extremity.). No: Normal Gait, Babinski (Left side but felt to be malingering to some degree.), Straight Leg Raise (L) DTR: 1+: Achilles (R), Achilles (L), 2+: Bicep (R), Bicep (L), Patella (R), Patella (L) Extremities: Normal Inspection, Normal Range of Motion, Non-Tender, No Pedal Edema Psychiatric: Anxious, Tearful Skin Exam: Warm, Dry, Intact, Normal Color, No Rash Course - Vital Signs Last Recorded V/S: Last Vital Signs Temp 36.4 C 11/24/17 11:16 Pulse 85 11/24/17 11:16 Resp 16 11/24/17 11:16 BP 144/96 H 11/24/17 11:16 Pulse Ox 96 11/24/17 11:16 - Orders/Labs/Meds Meds: Medications Discontinued Medications Generic Name Dose Route Start Last Admin Trade Name Ashvin PRN Reason Stop Dose Admin Hydromorphone HCl 1 mg 11/24/17 12:14 11/24/17 12:21 Dilaudid IM 11/24/17 12:15 1 mg ONETIME ONE Administration Promethazine HCl 25 mg 11/24/17 12:14 11/24/17 12:21 Phenergan IM 11/24/17 12:15 25 mg ONETIME ONE Administration - Radiology Interpretation Free Text/Narrative:: 52-year-old female sent to the ED for evaluation of left-sided weakness which has been going on for the better part of 2 weeks. She was recently hospitalized in [facility] due to dehydration and alcohol detoxification. She was complaining of left-sided weakness at that time an MRI of her cervical spine was obtained which indicated diffuse degenerative disc disease but the extent is not known as to whether or not there is need for neurosurgical intervention. Her primary care provider Rhoda Limon has seen her this morning and recommended CT of her head be done and this therefore she attended the ED in this regard. My assessment is that she is feigning increased weakness in the left upper extremity and lower extremity with no evidence of true motor power tone and loss. Reflexes are all intact. CT head done is within normal limits with no sign of intracranial hypertension mass effect or bleed. Patient is complaining of a severe headache at the time of my assessment. She will therefore be given a I am injection of Phenergan 25 mg with Dilaudid 1 mg IM. I did discuss the findings with her primary care provider and she indicates that she does not want her on any narcotics for pain relief at this time. She is going to restart her on Effexor and gabapentin for pain relief first. She will be following up with her primary care provider after her MRI report comes back from [place]. Departure - Departure Time of Disposition: 12:30 Disposition: Home, Self-Care 01 Condition: Fair Clinical Impression: Hemiparesis of left dominant side due to non-cerebrovascular etiology, Cervical radiculopathy due to degenerative joint disease of spine Migraine headache Qualifiers: Migraine type: other Status migrainosus presence: without status migrainosus Intractability: not intractable Qualified Code(s): G43.809 - Other migraine, not intractable, without status migrainosus - Discharge Information *PRESCRIPTION DRUG MONITORING PROGRAM REVIEWED*: Yes *COPY OF PRESCRIPTION DRUG MONITORING REPORT IN PATIENT LEONEL: No Instructions: Recurrent Migraine Headache, [id number] Referrals: Candida Limon PA [Primary Care Provider] - Forms: ED Department Discharge Additional Instructions: Evaluation in the emergency room today at the request of your primary care provider Rhoda Limon. Increasing left-sided weakness with reported left facial weakness raise consideration of possible stroke and therefore you were sent to the ED for further evaluation in this regard. CT of the brain reveals no evidence of cerebrovascular accident or stroke. There is no intracranial mass effect or bleeding. It appears that the left-sided arm and leg pain and weakness is secondary to cervical disc disease which was identified by MRI when you were in [place] 2 weeks ago. The records are being sent up from [place] so that a decision can be made as to whether or not neurosurgical involvement is required. While in the ED today you had a significant headache precipitated likely by like stress events. You're treated with an IM injection of Dilaudid 1 mg and Phenergan 25 mg IM for headache and nausea relief. This will cause some degree of sedation suggest home to rest/sleep for the rest of the afternoon. I' ve spoken with Rhoda Casarez she requests that you do not receive any narcotic pain medication at this time. She wants you to fill the prescriptions that she has to the pharmacy for you in relief at this time. Follow-up with Rhoda as planned after she received records from [place]. She can then formulate a plan for neurosurgical involvement if necessary based on MRI report.
--- NOTE | 2017-11-24 11:41 | CT ---
Head CT Technique: Multiple axial sections through the brain were obtained. Intravenous contrast was not utilized. Comparison: Prior head CT exam of 07/01/17. Findings: Ventricles along with basal cisterns and sulci over the convexities are mildly prominent. No abnormal parenchymal densities are seen. No evidence of intracranial hemorrhage. No midline shift or mass effect is seen. Bone window settings were reviewed which shows no acute calvarial abnormality. Visualized sinuses are clear. Impression: 1. No acute intracranial abnormality is identified on noncontrast head CT exam. No significant change is seen from prior head CT exam. Diagnostic code #1
[2017-11-24] MEDS ORDERED: HYDROmorphone 1 MG/ML Syringe IM ONE (12:14)
[2017-11-24] MEDS ORDERED: Promethazine 25 MG/ML SDV IM ONE (12:14)
== END 2017-11-24 12:30 | disposition home or self-care (01) ==
LOC: JD.ED 10:57
DX: G43.809 Other migraine, not intractable, without status migrainosus (principal); G81.92 Hemiplegia, unspecified affecting left dominant side; M47.22 Other spondylosis with radiculopathy, cervical region; Z88.6 Allergy status to analgesic agent; Z88.2 Allergy status to sulfonamides; Z88.8 Allergy status to other drugs, medicaments and biological substances
CPT/HCPCS: 70450; 96372; 99284; J1170; J2550

== ENCOUNTER 2017-11-26 17:12 | Emergency (ER) | payer MEDICAID ==
--- NOTE | 2017-11-26 18:36 | EDM.PDOCBH ---
ED HPI GENERAL MEDICAL PROBLEM - General Chief Complaint: Drug or Alcohol Abuse Stated Complaint: ALCOHOL DETOX Time Seen by Provider: 11/26/17 18:32 Source of Information: Reports: Patient History Limitations: Reports: No Limitations - History of Present Illness INITIAL COMMENTS - FREE TEXT/NARRATIVE: Patient is a 52 year old female who presents to the E.D. wishing to undergo treatment for alcohol. Patient has been consuming 1 pint of whiskey daily for the last 6 days. States she startered again after getting into a argument with her . Patient was in [place] for 8 wks and was clean. 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 Due to cervical disc issues she was not able to start since she requires surgery. She has been in contact with [facility] with plans to start outpatient treatment this coming Wednesday. Patient is requesting detox from alcohol. She last consumed alcohol this a.m. She has in the past experienced two seizures with detox. She She does not want to anywhere else but [facility] for Treatment. She is not suicidal , homicidal, and denies visual/auditory hallucinations. Right Abdomen Pain Score (Numeric/FACES): 9 - Related Data Allergies Allergy/AdvReac Type Severity Reaction Status Date / Time ibuprofen Allergy Itching Verified 11/24/17 11:18 ketorolac tromethamine Allergy Rash Verified 11/24/17 11:18 [From Toradol] naproxen Allergy Itching Verified 11/24/17 11:18 Sulfa (Sulfonamide Allergy Rash Verified 11/24/17 11:18 Antibiotics) sumatriptan [From Imitrex] Allergy Anaphylactic Verified 11/24/17 11:18 Shock sumatriptan succinate Allergy Anaphylactic Verified 11/24/17 11:18 [From Imitrex] Shock tramadol Allergy Rash Verified 11/24/17 11:18 diphenhydramine HCl AdvReac Headache Verified 11/24/17 11:18 [From Benadryl] MSG Allergy Anxiety Uncoded 11/24/17 11:18 Home Meds: Home Meds Gabapentin [Neurontin] 300 mg PO DAILY 11/26/17 [History] Venlafaxine [Effexor] 150 mg PO DAILY 11/26/17 [History] Past Medical History HEENT History: Reports: Impaired Vision Other HEENT History: wears corrective lenses Cardiovascular History: Reports: High Cholesterol Respiratory History: Reports: Other (See Below) Other Respiratory History: restrictive airway Gastrointestinal History: Reports: Gastritis, GERD Other Gastrointestinal History: esophageal stricture, abdominal pain lower, Genitourinary History: Reports: Urinary Incontinence Other Genitourinary History: implantable device interstim RLQ- removed 08/16/17 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: Musculoskeletal History: Reports: Back Pain, Chronic Neurological History: Reports: CVA, Migraines, Seizure, Other (See Below) Other Neuro History: patient reports "nervous tics" Psychiatric History: Reports: Addiction, Anxiety, Depression, Suicide Attempt, Other (See Below) Other Psychiatric History: drug overdose, personality disorder, alcohol withdrawal Endocrine/Metabolic History: Reports: Obesity/BMI 30+ Dermatologic History: Reports: Other (See Below) Other Dermatologic History: skin lesion - Infectious Disease History Infectious Disease History: Reports: Chicken Pox - Past Surgical History GI Surgical History: Reports: Appendectomy, Cholecystectomy, EGD Female Surgical History: Reports: Hysterectomy, Salpingo-Oophorectomy, Tubal Ligation, Other (See Below) Other Female Surgeries/Procedures: recent bladder surgery Social & Family History - Family History Family Medical History: Noncontributory Cardiac: Reports: Bypass, CAD, Heart Failure - Tobacco Use Smoking Status *Q: Former Smoker Used Tobacco, but Quit: Yes Month/Year Tobacco Last Used: 2 months - Caffeine Use Caffeine Use: Reports: Coffee, Tea - Recreational Drug Use Recreational Drug Use: No - Living Situation & Occupation Living situation: Reports: , Other (with ex-) Occupation: Employed ([employer]) ED ROS GENERAL - Review of Systems Review Of Systems: See Below GI/Abdominal: Denies: Black Stool, Bloody Stool, Hematemesis, Hematochezia, Melena, Nausea, Vomiting Neurological: Denies: Headache, Difficulty Walking, Gait Disturbance Psychiatric: Reports: Anxiety, Cravings. Denies: Depression, Hallucinations, Homicidal Ideation, Suicidal Ideation ED EXAM, BEHAVIORAL HEALTH - Physical Exam Exam: See Below Exam Limited By: No Limitations General Appearance: Alert, WD/WN, Anxious Eye Exam: Bilateral Eye: EOMI, Nystagmus (none noted) Ears: Hearing Grossly Normal Nose: Normal Inspection Throat/Mouth: Normal Voice, No Airway Compromise Neck: Normal Inspection, Supple Respiratory/Chest: No Respiratory Distress, Lungs Clear, Normal Breath Sounds, No Accessory Muscle Use Cardiovascular: Normal Peripheral Pulses, Regular Rate, Rhythm Extremities: Normal Inspection Neurological: Alert, Normal Mood/Affect, CN II-XII Intact, Normal Cognition, No Motor/Sensory Deficits, Oriented x 3 Psychiatric: Alert, Normal Affect, Normal Cognition, Oriented, Other (anxious). No: Restless, Tearful, Suicidal Plan, Suicidal Thoughts, Auditory Hallucinations, Visual Hallucinations Skin Exam: Warm, Dry, Intact, Normal color COURSE, BEHAVIORAL HEALTH COMP - Course Vital Signs: Last Vital Signs Temp 98.6 F 11/26/17 17:30 Pulse 81 11/26/17 17:30 Resp 18 11/26/17 17:30 BP 116/84 11/26/17 17:30 Pulse Ox 96 11/26/17 17:30 Re-Assessment/Re-Exam: Patient is requesting inpatient detox from alcohol. Discussed with the patient if Hospitalists agrees to admit she would undergo Psych Evaluation and speak with a DAC. Roe does not want to be transferred to anywhere for alcoholism treatment. She states in the past has been sent to [place] which was very scary. Patient does not want to be transferred anywhere else. I told her I could not promise that and the patient refused admission. Patient walked out prior to discharge. Departure - Departure Time of Disposition: 18:32 Disposition: Against Medical Advice 07 Condition: Good Clinical Impression: Alcohol abuse, Anxiety - Discharge Information Referrals: Demian Limon PA [Primary Care Provider] -
[2017-11-26 18:38] VITALS: BP 116/84
== END 2017-11-26 18:51 | disposition left against medical advice (07) ==
LOC: JD.ED 17:12
DX: F10.20 Alcohol dependence, uncomplicated (principal); F41.9 Anxiety disorder, unspecified
CPT/HCPCS: 99284

== ENCOUNTER 2017-12-01 11:37 | Emergency (ER) | payer MEDICAID ==
--- NOTE | 2017-12-01 11:45 | EDM.PDOC ---
ED HPI GENERAL MEDICAL PROBLEM - General Chief Complaint: Drug or Alcohol Abuse Stated Complaint: MEDICAL CLERANCE Time Seen by Provider: 12/01/17 11:44 Source of Information: Reports: Patient - History of Present Illness INITIAL COMMENTS - FREE TEXT/NARRATIVE: Patient is brought up here today by a roofing sales representative from [facility]. Patient was checking in this morning for inpatient alcohol treatment, reportedly had high blood pressure so was brought to the emergency room for evaluation for this. Patient has significant history abuse of alcohol and narcotic pain medication. She states that she hit her "bottom" when she was in [place] recently, had significant problems with her ex- and is now ready to get sober and " back to myself". Patient was hospitalized in [place] last month for alcohol detox as well. During that time she had cardiac consult. At that time echo demonstrated ejection fraction of 50-55%. Normal diastolic function. Normal RV size and systolic function. Also reported in the clinic notes was a normal CCTA in 2012 and a normal stress in 2013. Chest x-ray 11/11/2017 was negative. She was having some neck pain at that time, MRI of her cervical spine demonstrated diffuse degenerative changes. She had cervical disc bulge on the right at C4-5, diffuse at C5-6 and on the left at C6-7. Neurosurgery was consulted while she was an inpatient, at that time they felt that conservative management was indicated and there is no neurosurgical intervention indicated at that time. Abdomen Pain Score (Numeric/FACES): 9 - Related Data Allergies Allergy/AdvReac Type Severity Reaction Status Date / Time ibuprofen Allergy Itching Verified 11/24/17 11:18 ketorolac tromethamine Allergy Rash Verified 11/24/17 11:18 [From Toradol] naproxen Allergy Itching Verified 11/24/17 11:18 Sulfa (Sulfonamide Allergy Rash Verified 11/24/17 11:18 Antibiotics) sumatriptan [From Imitrex] Allergy Anaphylactic Verified 11/24/17 11:18 Shock sumatriptan succinate Allergy Anaphylactic Verified 11/24/17 11:18 [From Imitrex] Shock tramadol Allergy Rash Verified 11/24/17 11:18 diphenhydramine HCl AdvReac Headache Verified 11/24/17 11:18 [From Benadryl] MSG Allergy Anxiety Uncoded 11/24/17 11:18 Home Meds: Home Meds Gabapentin [Neurontin] 300 mg PO DAILY 11/26/17 [History] Venlafaxine [Effexor] 150 mg PO DAILY 11/26/17 [History] Omeprazole Magnesium [Prilosec Otc] 20 mg PO DAILY 12/01/17 [History] chlordiazePOXIDE [Librium] 25 mg PO TID PRN #21 cap 12/01/17 [Rx] Past Medical History HEENT History: Reports: Impaired Vision Other HEENT History: wears corrective lenses Cardiovascular History: Reports: High Cholesterol Respiratory History: Reports: Other (See Below) Other Respiratory History: restrictive airway Gastrointestinal History: Reports: Gastritis, GERD Other Gastrointestinal History: esophageal stricture, abdominal pain lower, Genitourinary History: Reports: Urinary Incontinence Other Genitourinary History: implantable device interstim RLQ- removed 08/16/17 [employer] History: Reports: Musculoskeletal History: Reports: Back Pain, Chronic Neurological History: Reports: CVA, Migraines, Seizure, Other (See Below) Other Neuro History: patient reports "nervous tics" Psychiatric History: Reports: Addiction, Anxiety, Depression, Suicide Attempt, Other (See Below) Other Psychiatric History: drug overdose, personality disorder, alcohol withdrawal Endocrine/Metabolic History: Reports: Obesity/BMI 30+ Dermatologic History: Reports: Other (See Below) Other Dermatologic History: skin lesion - Infectious Disease History Infectious Disease History: Reports: Chicken Pox - Past Surgical History GI Surgical History: Reports: Appendectomy, Cholecystectomy, EGD Female Surgical History: Reports: Hysterectomy, Salpingo-Oophorectomy, Tubal Ligation, Other (See Below) Other Female Surgeries/Procedures: recent bladder surgery Social & Family History - Family History Family Medical History: Noncontributory Cardiac: Reports: Bypass, CAD, Heart Failure - Caffeine Use Caffeine Use: Reports: Coffee, Tea - Living Situation & Occupation Living situation: Reports: , Other (with ex-) Occupation: Employed ([employer]) ED [facility] - Review of Systems Review Of Systems: See Below Constitutional: Reports: Malaise, Weakness, Fatigue. Denies: Fever, Chills Respiratory: Reports: No Symptoms Cardiovascular: Reports: No Symptoms GI/Abdominal: Reports: Abdominal Pain, Decreased Appetite Musculoskeletal: Reports: Neck Pain Skin: Reports: No Symptoms Neurological: Reports: No Symptoms Psychiatric: Reports: Anxiety, Depression. Denies: Homicidal Ideation, Suicidal Ideation ED EXAM, GENERAL - Physical Exam Exam: See Below Exam Limited By: No Limitations General Appearance: Alert, WD/WN, Anxious Eye Exam: Bilateral Eye: PERRL Throat/Mouth: Normal Oropharynx Head: Atraumatic, Normocephalic Neck: Normal Inspection, Supple, Non-Tender Respiratory/Chest: No Respiratory Distress, Normal Breath Sounds, No Accessory Muscle Use Cardiovascular: Normal Peripheral Pulses, Regular Rate, Rhythm, No Murmur GI/Abdominal: Normal Bowel Sounds, Soft, Non-Tender Neurological: Alert, Oriented Psychiatric: Anxious, Depressed Mood Skin Exam: Warm, Dry, Intact, No Rash EKG INTERPRETATION EKG Date: 12/01/17 Time: 12:09 Rhythm: NSR Rate (Beats/Min): 68 Course - Vital Signs Last Recorded V/S: Last Vital Signs Temp 98.1 F 12/01/17 11:50 Pulse 79 12/01/17 11:50 Resp 20 12/01/17 11:50 BP 116/82 12/01/17 11:50 Pulse Ox 99 12/01/17 11:50 - Orders/Labs/Meds Orders: Active Orders 24 hr Category Date Time Status EKG 12 Lead [EKG Documentation Completion] [RC] STAT Care 12/01/17 12:04 Active DRUG SCREEN, URINE [URCHEM] Stat Lab 12/01/17 14:09 Ordered UA W/MICROSCOPIC [URIN] Stat Lab 12/01/17 14:09 Ordered Labs: Laboratory Tests 12/01/17 12/01/17 12/01/17 Range/Units 13:30 13:30 13:30 WBC 7.91 (3.98-10.04) K/mm3 RBC 4.38 (3.98-5.22) M/mm3 Hgb 14.2 (11.2-15.7) gm/L Hct 43.4 (34.1-44.9) % MCV 99.1 H (79.4-94.8) fl MCH 32.4 H (25.6-32.2) pg MCHC 32.7 (32.2-35.5) g/dl RDW Std Deviation 45.0 (36.4-46.3) fL Plt Count 303 (182-369) K/mm3 MPV 10.7 (9.4-12.3) fl Neutrophils % (Manual) 65 H (40-60) % Band Neutrophils % 0 (0-10) % Lymphocytes % (Manual) 28 (20-40) % Atypical Lymphs % 0 % Monocytes % (Manual) 5 (2-10) % Eosinophils % (Manual) 2 (0.7-5.8) % Basophils % (Manual) 0 L (0.1-1.2) Platelet Estimate Adequate Plt Morphology Comment Normal Anisocytosis 1+ slight Microcytosis 1+ slight Ovalocytes 1+ slight RBC Morph Comment Abnormal Sodium 141 (136-145) mEq/L Potassium 4.3 (3.5-5.1) mEq/L Chloride 104 (98-107) mEq/L Carbon Dioxide 26 (21-32) mEq/L Anion Gap 15.3 H (5-15) BUN 15 (7-18) mg/dL Creatinine 1.0 (0.55-1.02) mg/dL Est Cr Clr Drug Dosing 58.54 mL/min Estimated GFR (MDRD) 58 (>60) mL/min BUN/Creatinine Ratio 15.0 (14-18) Glucose 110 H (74-106) mg/dL Calcium 9.0 (8.5-10.1) mg/dL Magnesium 2.1 (1.8-2.4) mg/dl Total Bilirubin 0.6 (0.2-1.0) mg/dL AST 77 H (15-37) U/L ALT 105 H (14-59) U/L Alkaline Phosphatase 116 (46-116) U/L Troponin I < 0.017 (0.00-0.056) ng/mL Total Protein 7.2 (6.4-8.2) g/dl Albumin 3.6 (3.4-5.0) g/dl Globulin 3.6 gm/dL Albumin/Globulin Ratio 1.0 (1-2) Urine Color (Yellow) Urine Appearance (Clear) Urine pH (5.0-8.0) Ur Specific [place] (1.005-1.030) Urine Protein (Negative) Urine Glucose (UA) (Negative) Urine Ketones (Negative) Urine Occult Blood (Negative) Urine Nitrite (Negative) Urine Bilirubin (Negative) Urine Urobilinogen (0.2-1.0) Ur Leukocyte Esterase (Negative) Urine RBC (0-5) /hpf Urine WBC (0-5) /hpf Ur Epithelial Cells (0-5) /hpf Urine Bacteria (FEW) /hpf Hyaline Casts (0-5) /lpf Urine Mucus (FEW) /hpf Urine Opiates Screen (NEGATIVE) Ur Buprenorphine Scrn (NEGATIVE) Ur Oxycodone Screen (NEGATIVE) Urine Methadone Screen (NEGATIVE) Ur Propoxyphene Screen (NEGATIVE) Ur Barbiturates Screen (NEGATIVE) Ur Tricyclics Screen (NEGATIVE) Ur Phencyclidine Scrn (NEGATIVE) Ur Amphetamine Screen (NEGATIVE) U Methamphetamines Scrn (NEGATIVE) U Benzodiazepines Scrn (NEGATIVE) U Cocaine Metab Screen (NEGATIVE) U Marijuana (THC) Screen (NEGATIVE) Ethyl Alcohol 0.00 (0.00) gm% 12/01/17 12/01/17 Range/Units 14:09 14:09 WBC (3.98-10.04) K/mm3 RBC (3.98-5.22) M/mm3 Hgb (11.2-15.7) gm/L Hct (34.1-44.9) % MCV (79.4-94.8) fl MCH (25.6-32.2) pg MCHC (32.2-35.5) g/dl RDW Std Deviation (36.4-46.3) fL Plt Count (182-369) K/mm3 MPV (9.4-12.3) fl Neutrophils % (Manual) (40-60) % Band Neutrophils % (0-10) % Lymphocytes % (Manual) (20-40) % Atypical Lymphs % % Monocytes % (Manual) (2-10) % Eosinophils % (Manual) (0.7-5.8) % Basophils % (Manual) (0.1-1.2) Platelet Estimate Plt Morphology Comment Anisocytosis Microcytosis Ovalocytes RBC Morph Comment Sodium (136-145) mEq/L Potassium (3.5-5.1) mEq/L Chloride (98-107) mEq/L Carbon Dioxide (21-32) mEq/L Anion Gap (5-15) BUN (7-18) mg/dL Creatinine (0.55-1.02) mg/dL Est Cr Clr Drug Dosing mL/min Estimated GFR (MDRD) (>60) mL/min BUN/Creatinine Ratio (14-18) Glucose (74-106) mg/dL Calcium (8.5-10.1) mg/dL Magnesium (1.8-2.4) mg/dl Total Bilirubin (0.2-1.0) mg/dL AST (15-37) U/L ALT (14-59) U/L Alkaline Phosphatase (46-116) U/L Troponin I (0.00-0.056) ng/mL Total Protein (6.4-8.2) g/dl Albumin (3.4-5.0) g/dl Globulin gm/dL Albumin/Globulin Ratio (1-2) Urine Color Yellow (Yellow) Urine Appearance Slt cloudy H (Clear) Urine pH 6.0 (5.0-8.0) Ur Specific [place] > or = 1.030 (1.005-1.030) Urine Protein Negative (Negative) Urine Glucose (UA) Negative (Negative) Urine Ketones Trace H (Negative) Urine Occult Blood Trace-intact H (Negative) Urine Nitrite Negative (Negative) Urine Bilirubin Negative (Negative) Urine Urobilinogen 0.2 (0.2-1.0) Ur Leukocyte Esterase 1+ H (Negative) Urine RBC 0-5 (0-5) /hpf Urine WBC 5-10 H (0-5) /hpf Ur Epithelial Cells 0-5 (0-5) /hpf Urine Bacteria Many H (FEW) /hpf Hyaline Casts 0-5 (0-5) /lpf Urine Mucus Many H (FEW) /hpf Urine Opiates Screen Negative (NEGATIVE) Ur Buprenorphine Scrn Negative (NEGATIVE) Ur Oxycodone Screen Negative (NEGATIVE) Urine Methadone Screen Negative (NEGATIVE) Ur Propoxyphene Screen Negative (NEGATIVE) Ur Barbiturates Screen Negative (NEGATIVE) Ur Tricyclics Screen Negative (NEGATIVE) Ur Phencyclidine Scrn Negative (NEGATIVE) Ur Amphetamine Screen Negative (NEGATIVE) U Methamphetamines Scrn Negative (NEGATIVE) U Benzodiazepines Scrn Presumptive positive H (NEGATIVE) U Cocaine Metab Screen Negative (NEGATIVE) U Marijuana (THC) Screen Negative (NEGATIVE) Ethyl Alcohol (0.00) gm% Meds: Medications Discontinued Medications Generic Name Dose Route Start Last Admin Trade Name Freq PRN Reason Stop Dose Admin Sodium Chloride 1,000 mls @ 999 mls/hr 12/01/17 12:05 12/01/17 14:05 Normal Saline IV 12/01/17 13:05 Not Given ONETIME ONE Lorazepam 1 mg 12/01/17 12:05 12/01/17 14:05 Ativan IVPUSH 12/01/17 12:06 Not Given ONETIME ONE Lorazepam 1 mg 12/01/17 12:39 12/01/17 12:50 Ativan PO 12/01/17 12:40 1 mg ONETIME ONE Administration Lorazepam 0.5 mg 12/01/17 13:48 12/01/17 14:02 Ativan PO 12/01/17 13:49 0.5 mg ONETIME ONE Administration - Re-Assessments/Exams Free Text/Narrative Re-Assessment/Exam: When nursing walked in, patient said the nurse's name and then started shaking uncontrollably. I entered several seconds after this began, the mild "convulsions" lasted approximately 1 minute. This was initially thought to be a seizure, however during this episode, the patient's name was said she did respond. Patient calmed and was immediately coherent and able to discuss everything that is going on in her life. Denies nausea or fatigue. She is happy to have her very supportive friend who also just went through alcohol treatment. As well as her ex-, Nash, who is now being very supportive of her journey again. Will get basic labwork and EKG. Start IV fluids and 1mg Lorazepam. 12/01/17 12:13 Nursing staff is unable to obtain IV access despite several tries. lorazepam will be given by mouth, patient tolerating oral fluids. 12/01/17 13:22 Patient much calmer after lorazepam, requesting something to eat. BP remains in normal range. 12/01/17 13:54 Alcohol is currently 0. CBC unremarkable, liver enzymes are elevated and have been chronically due to her alcohol use. Patient ate her meal, states she feels much better. She has no visible tremors or shakiness. She denies any nausea, states she overall she is feeling well bit nervous about the admission for inpatient alcohol treatment. Reassured patient, will discharge her on Librium 3 times a day, taper off of this as symptoms improve. She will follow-up in the clinic as previously scheduled for return to the emergency room for any new or worsening symptoms. 12/01/17 15:08 12/01/17 15:10 Departure - Departure Time of Disposition: 15:10 Disposition: Home, Self-Care 01 Condition: Fair Clinical Impression: Alcohol abuse Alcohol withdrawal syndrome Qualifiers: Complication of substance-induced condition: uncomplicated Qualified Code(s): F10.230 - Alcohol dependence with withdrawal, uncomplicated Prescriptions: chlordiazePOXIDE [Librium] 25 mg PO TID PRN #21 cap PRN Reason: Withdrawal Symptoms Instructions: Alcohol Withdrawal, [id number] Referrals: Demian Limon PA [Primary Care Provider] - Additional Instructions: You were evaluated today for elevated blood pressure. Work-up in the ER was negative, your EKG was normal. I suspect your symptoms are related to your anxiety and withdrawal symptoms. You will be released to start your alcohol treatment. You will be prescribed a taper of Librium to help with the symptoms as your body adjusts. Follow-up in the emergency for any new or worsening symptoms. - My Orders Last 24 Hours: My Active Orders 12/01/17 12:04 EKG 12 Lead [EKG Documentation Completion] [RC] STAT 12/01/17 14:09 DRUG SCREEN, URINE [URCHEM] Stat UA W/MICROSCOPIC [URIN] Stat - Assessment/Plan Last 24 Hours: My Active Orders 12/01/17 12:04 EKG 12 Lead [EKG Documentation Completion] [RC] STAT 12/01/17 14:09 DRUG SCREEN, URINE [URCHEM] Stat UA W/MICROSCOPIC [URIN] Stat
[2017-12-01] MEDS ORDERED: LORazepam 2 MG/ML SDV IVPUSH ONE (12:05)
[2017-12-01] MEDS ORDERED: Sodium Chloride 0.9% 1,000 ML IV ONE (12:05)
[2017-12-01] MEDS ORDERED: LORazepam 1 MG Tab PO ONE (12:39)
[2017-12-01] MEDS ORDERED: LORazepam 0.5 MG Tab PO ONE (13:48)
[2017-12-01 15:28] VITALS: BP 104/72
== END 2017-12-01 15:09 | disposition home or self-care (01) ==
LOC: SUPCPDRO 11:37 → JD.ED 11:37
DX: F10.230 Alcohol dependence with withdrawal, uncomplicated (principal); Z88.2 Allergy status to sulfonamides; Z88.8 Allergy status to other drugs, medicaments and biological substances; Z88.5 Allergy status to narcotic agent; E66.9 Obesity, unspecified; Z79.899 Other long term (current) drug therapy
CPT/HCPCS: 36415; 80053; 80306; 81001; 83735; 84484; 85007; 85027; 93005; 99285; A9270; G0480; 99284

== ENCOUNTER 2017-12-13 14:41 | Emergency (ER) | payer MEDICAID ==
[2017-12-13 14:55] VITALS: BP 118/88
[2017-12-13] MEDS ORDERED: Sodium Chloride 0.9% 1,000 ML IV SCH (15:45)
[2017-12-13] MEDS ORDERED: Sodium Chloride 0.9% 10 ML Syringe FLUSH ONE (15:55)
[2017-12-13] MEDS ORDERED: Diatrizoate Meglumine/Diatrizoate Sodium 37% 120 ML Bottle PO ONE (15:55)
[2017-12-13] MEDS ORDERED: Iopamidol 612 MG/ML 100 ML Bottle IVPUSH ONE (15:55)
--- NOTE | 2017-12-13 15:57 | EDM.PDOC ---
ED HPI GENERAL MEDICAL PROBLEM - General Chief Complaint: Abdominal Pain Stated Complaint: L SIDE PAIN Time Seen by Provider: 12/13/17 14:58 Source of Information: Reports: Patient, Old Records, RN Notes Reviewed, Other ( [place]MP[place]) History Limitations: Reports: No Limitations - History of Present Illness INITIAL COMMENTS - FREE TEXT/NARRATIVE: The patient states that she developed sharp/stabbing pain to her left upper quadrant yesterday, and thought that she felt a lump in the area. The pain has been constant, and she has not identified any modifiers. No associated symptoms , such as fever, nausea, vomiting, constipation, diarrhea, or urinary symptoms. No home remedies or treatments. No prior similar symptoms. The patient states that she went to the walk-in clinic, but was sent here for evaluation. The patient's PCP is Candida Limon. Left Upper Abdomen Pain Score (Numeric/FACES): 8 - Related Data Allergies Allergy/AdvReac Type Severity Reaction Status Date / Time ibuprofen Allergy Itching Verified 12/05/17 12:23 ketorolac tromethamine Allergy Rash Verified 12/05/17 12:23 [From Toradol] naproxen Allergy Itching Verified 12/05/17 12:23 Sulfa (Sulfonamide Allergy Rash Verified 12/05/17 12:23 Antibiotics) sumatriptan [From Imitrex] Allergy Anaphylactic Verified 12/05/17 12:23 Shock sumatriptan succinate Allergy Anaphylactic Verified 12/05/17 12:23 [From Imitrex] Shock tramadol Allergy Rash Verified 12/05/17 12:23 diphenhydramine HCl AdvReac Headache Verified 12/05/17 12:23 [From Benadryl] MSG Allergy Anxiety Uncoded 12/05/17 12:23 Home Meds: Home Meds Gabapentin [Neurontin] 300 mg PO DAILY 11/26/17 [History] Venlafaxine [Effexor] 150 mg PO DAILY 11/26/17 [History] Omeprazole Magnesium [Prilosec Otc] 20 mg PO DAILY 12/01/17 [History] chlordiazePOXIDE [Librium] 25 mg PO TID PRN #21 cap 12/01/17 [Rx] Dicyclomine [Bentyl] 20 mg PO Q6H PRN #5 tablet 12/05/17 [Rx] Ondansetron [Zofran ODT] 4 mg PO Q6H PRN #8 tab.dis 12/05/17 [Rx] chlordiazePOXIDE [Librium] 25 mg PO BID #6 cap 12/05/17 [Rx] hydrOXYzine HCl [Atarax] 25 mg PO DAILY 12/05/17 [History] traZODone HCl [Trazodone HCl] 300 mg PO BEDTIME 12/05/17 [History] Past Medical History HEENT History: Reports: Impaired Vision Other HEENT History: wears corrective lenses Cardiovascular History: Reports: High Cholesterol (untreated) Gastrointestinal History: Reports: Gastritis, GERD, Other (See Below) ( Esophageal stricture) Genitourinary History: Reports: Urinary Incontinence 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 InterStim implanted, removed 08/16/2017. Bladder sling 08/16/2017.) Social & Family History - Family History Family Medical History: Noncontributory Cardiac: Reports: Bypass, CAD, Heart Failure - Tobacco Use Years of Tobacco use: 13 Packs/Tins Daily: 0.3 Month/Year Tobacco Last Used: Quit September 2017 - Caffeine Use Caffeine Use: Reports: Coffee - Alcohol Use Alcohol Use History: Yes Date/Time of Last Drink Comment: Alcoholic, sober x 12/02/2017 - Recreational Drug Use Recreational Drug Use: No - Living Situation & Occupation Living situation: Reports: , Other (currently residing at [facility]) Occupation: Unemployed ED ROS GENERAL - Review of Systems Review Of Systems: ROS reveals no pertinent complaints other than HPI. ED EXAM, GI/ABD - Physical Exam Exam: See Below Exam Limited By: No Limitations General Appearance: Alert, WD/WN, No Apparent Distress Eyes: Bilateral: Normal Appearance, EOMI Ears: Normal External Exam, Hearing Grossly Normal Nose: Normal Inspection, No Blood Throat/Mouth: Normal Inspection, Normal Lips, Normal Voice, No Airway Compromise Head: Atraumatic, Normocephalic Neck: Normal Inspection, Full Range of Motion Respiratory/Chest: No Respiratory Distress, Lungs Clear, Normal Breath Sounds, No Accessory Muscle Use Cardiovascular: Normal Peripheral Pulses, Regular Rate, Rhythm, No Gallop, No JVD, No Murmur, No Rub GI/Abdominal Exam: Normal Bowel Sounds, Soft, No Organomegaly, No Distention, No Abnormal Bruit, No Mass, Tender (Left upper quadrant only. Essentially nontender elsewhere.), Other (Obese) (Female) Exam: Deferred Rectal (Female) Exam: Deferred Back Exam: Normal Inspection, Full Range of Motion. No: CVA Tenderness (L), CVA Tenderness (R) Extremities: Normal Inspection, Normal Range of Motion, No Pedal Edema, Normal Capillary Refill Neurological: Alert, Oriented, Normal Cognition, No Motor/Sensory Deficits Psychiatric: Normal Affect Skin Exam: Warm, Dry, Intact, Normal Color, No Rash Course - Vital Signs Last Recorded V/S: Last Vital Signs Temp 36.7 C 12/13/17 14:50 Pulse 78 12/13/17 14:50 Resp 16 12/13/17 14:50 BP 118/88 12/13/17 14:50 Pulse Ox 98 12/13/17 14:50 - Orders/Labs/Meds Labs: Laboratory Tests 12/13/17 12/13/17 12/13/17 Range/Units 16:00 16:00 16:22 WBC 6.73 (3.98-10.04) K/mm3 RBC 4.41 (3.98-5.22) M/mm3 Hgb 14.4 (11.2-15.7) gm/L Hct 43.8 (34.1-44.9) % MCV 99.3 H (79.4-94.8) fl MCH 32.7 H (25.6-32.2) pg MCHC 32.9 (32.2-35.5) g/dl RDW Std Deviation 44.7 (36.4-46.3) fL Plt Count 326 (182-369) K/mm3 MPV 10.3 (9.4-12.3) fl Neutrophils % (Manual) 57 (40-60) % Band Neutrophils % 1 (0-10) % Lymphocytes % (Manual) 35 (20-40) % Atypical Lymphs % 0 % Monocytes % (Manual) 4 (2-10) % Eosinophils % (Manual) 3 (0.7-5.8) % Basophils % (Manual) 0 L (0.1-1.2) Platelet Estimate Adequate Plt Morphology Comment Normal Anisocytosis 1+ sligh RBC Morph Comment Not Reportable Sodium 138 (136-145) mEq/L Potassium 4.6 (3.5-5.1) mEq/L Chloride 104 (98-107) mEq/L Carbon Dioxide 28 (21-32) mEq/L Anion Gap 10.6 (5-15) BUN 14 (7-18) mg/dL Creatinine 0.9 (0.55-1.02) mg/dL Est Cr Clr Drug Dosing 65.05 mL/min Estimated GFR (MDRD) > 60 (>60) mL/min BUN/Creatinine Ratio 15.6 (14-18) Glucose 102 (74-106) mg/dL Calcium 9.3 (8.5-10.1) mg/dL Total Bilirubin 0.3 (0.2-1.0) mg/dL AST 34 (15-37) U/L ALT 66 H (14-59) U/L Alkaline Phosphatase 109 (46-116) U/L Total Protein 7.8 (6.4-8.2) g/dl Albumin 3.9 (3.4-5.0) g/dl Globulin 3.9 gm/dL Albumin/Globulin Ratio 1.0 (1-2) Lipase 298 (73-393) U/L Urine Color Yellow (Yellow) Urine Appearance Clear (Clear) Urine pH 6.0 (5.0-8.0) Ur Specific [place] > or = 1.030 (1.005-1.030) Urine Protein Negative (Negative) Urine Glucose (UA) Negative (Negative) Urine Ketones Negative (Negative) Urine Occult Blood 1+ H (Negative) Urine Nitrite Negative (Negative) Urine Bilirubin Negative (Negative) Urine Urobilinogen 0.2 (0.2-1.0) Ur Leukocyte Esterase 3+ H (Negative) Urine RBC 5-10 H (0-5) /hpf Urine WBC 40-50 H (0-5) /hpf Ur Epithelial Cells 20-30 H (0-5) /hpf Urine Bacteria Moderate H (FEW) /hpf Urine Mucus Not seen (FEW) /hpf Meds: Medications Discontinued Medications Generic Name Dose Route Start Last Admin Trade Name Ashvin PRN Reason Stop Dose Admin Diatrizoate Meglum/Diatrizoate Sod 90 ml 12/13/17 15:55 12/13/17 16:40 Gastrografin 37% PO 12/13/17 15:56 90 ml ONETIME ONE Administration Sodium Chloride 1,000 mls @ 150 mls/hr 12/13/17 15:45 12/13/17 16:10 Normal Saline IV 150 mls/hr ASDIRECTED HÉCTOR Administration Iopamidol 100 ml 12/13/17 15:55 12/13/17 16:40 Isovue-300 (61%) IVPUSH 12/13/17 15:56 100 ml ONETIME ONE Administration Sodium Chloride 10 ml 12/13/17 15:55 12/13/17 16:40 Saline Flush FLUSH 12/13/17 15:56 10 ml ONETIME ONE Administration - Re-Assessments/Exams Free Text/Narrative Re-Assessment/Exam: 12/13/17 15:54 The patient is requesting pain medication, however, she has a documented history of drug-seeking behavior. I asked the patient about that, and she explained that she has a history of alcoholism, but no affinity for opioids. I explained to the patient that I would check the medical record, and if her history reflected opioid drug-seeking, then we would have to wait to see if the CT scan found anything before giving her opioids, and that if not, then I would be able to give her an opioid. Reviewing the patient's prior medical record, however, finds that the patient was opioid drug-seeking previously, and [facility] finds that the patient has had numerous prescriptions for opioids. I will therefore have to withhold giving the patient an opioid analgesic until/unless the CT scan findings a treatable disorder. 12/13/17 17:05 CT of the abdomen and pelvis with oral and IV contrast is read by [facility] as: 1. There has been a cholecystectomy. 2. There is a diffuse decrease in hepatic parenchymal density, consistent with fatty infiltration. 3. There is increased feces throughout the colon consistent with constipation. 4. There has been a hysterectomy. 12/13/17 17:17 Test results discussed with the patient. Her left upper quadrant abdominal pain appears to be due to constipation. Her urinalysis appears to be contaminated. I have ordered a urine culture, but I am not going to start her on antibiotics. The remainder of her workup was unremarkable. I recommended to the patient that she purchase [id number] mineral oil enemas and use them until she gets some relief of the heart or stool on the left side of her colon, to be followed by some magnesium citrate or milk of magnesia, which should prompt elimination of the remainder of the constipation from the right side of her colon. Departure - Departure Time of Disposition: 17:18 Disposition: Home, Self-Care 01 Condition: Good Clinical Impression: Constipation - Discharge Information *PRESCRIPTION DRUG MONITORING PROGRAM REVIEWED*: Not Applicable *COPY OF PRESCRIPTION DRUG MONITORING REPORT IN PATIENT LEONEL: Not Applicable Instructions: Constipation, Adult, [id number] Referrals: Candida Limon PA [Primary Care Provider] - Forms: ED Department Discharge Additional Instructions: You were seen in the emergency room for upper left abdominal pain. Workup in the ER included blood work, a urinalysis, and a CT scan of your abdomen and pelvis. The CT scan found that you have constipation throughout your colon, which is likely the cause of your abdominal pain. Your urinalysis appears to be contaminated. A urine culture has been sent, and you will be notified if it returns positive. To treat your constipation, we recommend that you initially try mineral oil enemas until you have passage of some harder stools. If you cannot find mineral oil enemas at the store, purchase saline enemas as well as a bottle of mineral oil. Poor out the saline, then fill the enema bottles with mineral oil. You may also consider using glycerin suppositories for extra lubrication. Once you have passage of hard stool, we suggest trying either magnesium citrate or Milk Of Magnesia, which should help facilitate passage of the remainder of the constipation. Follow-up with your PCP, Candida Limon, as needed. If any other problems, please do not hesitate to return to the ER.
--- NOTE | 2017-12-14 06:58 | CT ---
CT abdomen and pelvis Technique: Multiple axial sections were obtained from above the dome of the diaphragm inferiorly through the pubic symphysis. Intravenous and oral contrast was utilized. Delayed images were obtained through the bladder. Comparison: Prior CT abdomen and pelvis exam of 01/03/17. Findings: Small portion of the visualized lung bases show nothing acute. Fatty infiltration is identified within the liver. Spleen appears within normal limits. Surgical clips are seen from prior cholecystectomy. Adrenal glands show no nodule. Kidney show symmetric contrast enhancement without hydronephrosis or mass. Pancreas is normal. Aorta shows no aneurysm. No retroperitoneal adenopathy or mesenteric abnormalities are seen. No pelvic mass or adenopathy is seen. Delayed images show contrast within the distal left ureter. There is a small calcification believed to be present within the distal ureter measuring about 1.5 mm which is felt compatible with a nonobstructing stone. On delayed images this small calcification becomes indistinguishable from the contrast-filled ureter which is felt to confirm its ureteral location. No pelvic mass or adenopathy is seen. Mild increased stool is noted throughout the colon. Appendix is not visualized. Bone window settings were reviewed which appear within normal limits for the patient's age. Impression: 1. Small nonobstructing stone within the distal left ureter measuring about 1.5 mm. 2. Mild increased stool within the colon. 3. Other incidental findings as noted above. Diagnostic code #3 I disagree with preliminary report from [facility], (nonobstructing stone within the distal left ureter) finalized on 12/13/17, 6:01 PM Central Time (code #3)
== END 2017-12-13 17:35 | disposition home or self-care (01) ==
LOC: JD.ED 14:41
DX: K59.00 Constipation, unspecified (principal); E66.9 Obesity, unspecified; Z79.899 Other long term (current) drug therapy; Z90.49 Acquired absence of other specified parts of digestive tract; Z88.8 Allergy status to other drugs, medicaments and biological substances; Z88.2 Allergy status to sulfonamides; Z88.6 Allergy status to analgesic agent
CPT/HCPCS: 36415; 74177; 80053; 81001; 83690; 85007; 85027; 87086; 96360; 99284; J7040; J7050; Q9963; Q9967

== ENCOUNTER 2017-12-18 19:07 | Inpatient (IN) | payer MEDICAID ==
[2017-12-18] MEDS ORDERED: Sodium Chloride 0.9% 1,000 ML IV ONE (19:14)
[2017-12-18] MEDS ORDERED: Iopamidol 612 MG/ML 150 ML Bottle IVPUSH ONE (19:21)
[2017-12-18] MEDS ORDERED: Sodium Chloride 0.9% 10 ML Syringe FLUSH ONE (19:21)
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
[2017-12-18] MEDS ORDERED: Acetaminophen 325 MG Tab PO ONE (21:14)
[2017-12-18] MEDS ORDERED: Temazepam 30 MG Cap PO PRN (23:53)
[2017-12-19] MEDS: Acetaminophen 325 MG Tab PO PRN ×4 (01:33→20:08)
--- NOTE | 2017-12-19 09:39 | PCM.HP ---
H&P History of Present Illness - General Date of Service: 12/18/17 Admit Problem/Dx: Admission Diagnosis/Problem Admission Diagnosis/Problem Alcohol intoxication Abdomen Pain Score (Numeric/FACES): 7 - Related Data Allergies/Adverse Reactions: Allergies Allergy/AdvReac Type Severity Reaction Status Date / Time ibuprofen Allergy Itching Verified 12/05/17 12:23 ketorolac tromethamine Allergy Rash Verified 12/05/17 12:23 [From Toradol] naproxen Allergy Itching Verified 12/05/17 12:23 Sulfa (Sulfonamide Allergy Rash Verified 12/05/17 12:23 Antibiotics) sumatriptan [From Imitrex] Allergy Anaphylactic Verified 12/05/17 12:23 Shock sumatriptan succinate Allergy Anaphylactic Verified 12/05/17 12:23 [From Imitrex] Shock tramadol Allergy Rash Verified 12/05/17 12:23 diphenhydramine HCl AdvReac Headache Verified 12/05/17 12:23 [From Benadryl] MSG Allergy Anxiety Uncoded 12/05/17 12:23 Home Medications: Home Meds Gabapentin [Neurontin] 300 mg PO DAILY 11/26/17 [History] Omeprazole Magnesium [Prilosec Otc] 20 mg PO DAILY 12/01/17 [History] Ondansetron [Zofran ODT] 4 mg PO Q6H PRN #8 tab.dis 12/05/17 [Rx] hydrOXYzine HCl [Atarax] 75 mg PO BEDTIME 12/05/17 [History] traZODone HCl [Trazodone HCl] 300 mg PO BEDTIME 12/05/17 [History] Naltrexone 50 mg PO DAILY 12/18/17 [History] chlordiazePOXIDE [Librium] 25 mg PO TID 12/18/17 [History] Past Medical History HEENT History: Reports: Impaired Vision Other HEENT History: wears corrective lenses Cardiovascular History: Reports: High Cholesterol Respiratory History: Reports: Sleep Apnea, Other (See Below) Other Respiratory History: restrictive airway Gastrointestinal History: Reports: Gastritis, GERD, Other (See Below) Other Gastrointestinal History: esophageal stricture, abdominal pain lower, Genitourinary History: Reports: Urinary Incontinence Other Genitourinary History: implantable device interstim RLQ- removed 08/16/17 [employer] History: Reports: Musculoskeletal History: Reports: Back Pain, Chronic Neurological History: Reports: CVA, Migraines, Seizure, Other (See Below) Other Neuro History: patient reports "nervous tics" Psychiatric History: Reports: Addiction, Anxiety, Depression, Suicide Attempt, Other (See Below) Other Psychiatric History: drug overdose, personality disorder, alcohol withdrawal Endocrine/Metabolic History: Reports: Hypothyroidism, Obesity/BMI 30+ Other Endocrine/Metabolic History: reports hypothyroidism 15 years ago that corrected itself Dermatologic History: Reports: Other (See Below) Other Dermatologic History: skin lesion - Infectious Disease History Infectious Disease History: Reports: Chicken Pox - Past Surgical History Respiratory Surgical History: Reports: Lung Biopsies Other Respiratory Surgeries/Procedures: 2014 GI Surgical History: Reports: Appendectomy, Cholecystectomy, EGD Female Surgical History: Reports: Hysterectomy, Salpingo-Oophorectomy, Tubal Ligation, Other (See Below) Other Female Surgeries/Procedures: bladder sling 09/2017 Social & Family History - Family History Family Medical History: Noncontributory Cardiac: Reports: Bypass, CAD, Heart Failure - Tobacco Use Smoking Status *Q: Current Every Day Smoker Years of Tobacco use: 13 Packs/Tins Daily: 0.3 Used Tobacco, but Quit: No Month/Year Tobacco Last Used: Quit September 2017 Tobacco Use Comment: states she quit smoking 6 weeks ago but has had 1 cigarette today and one yesterday Second Hand Smoke Exposure: No - Caffeine Use Caffeine Use: Reports: Coffee - Alcohol Use Days Per Week of Alcohol Use: 7 Number of Drinks Per Day: 4 Total Drinks Per Week: 28 Date of Last Drink: 12/18/17 Time of Last Drink: 17:00 - Recreational Drug Use Recreational Drug Use: No Drug Use in Last 12 Months: No Recreational Drug Type: Reports: Methamphetamine - Living Situation & Occupation Living situation: Reports: , Other (with roomate) Occupation: Unemployed Exam - Vital Signs Vital Signs: Last Vital Signs Temp 36.7 C 12/19/17 09:25 Pulse 77 12/19/17 09:25 Resp 16 12/19/17 09:25 BP 115/85 12/19/17 09:25 Pulse Ox 98 12/19/17 09:25 Weight: 98.52 kg - Patient Data Lab Results Last 24 hrs: Laboratory Results - last 24 hr 09/22/18 09/22/18 09/22/18 Range/Units 07:28 19:28 19:28 WBC 6.65 (3.98-10.04) K/mm3 RBC 4.51 (3.98-5.22) M/mm3 Hgb 14.6 (11.2-15.7) gm/L Hct 43.4 (34.1-44.9) % MCV 96.2 H (79.4-94.8) fl MCH 32.4 H (25.6-32.2) pg MCHC 33.6 (32.2-35.5) g/dl RDW Std Deviation 42.3 (36.4-46.3) fL Plt Count 358 (182-369) K/mm3 MPV 9.8 (9.4-12.3) fl Neutrophils % (Manual) 39 L (40-60) % Band Neutrophils % 0 (0-10) % Lymphocytes % (Manual) 55 H (20-40) % Atypical Lymphs % 0 % Monocytes % (Manual) 1 L (2-10) % Eosinophils % (Manual) 4 (0.7-5.8) % Basophils % (Manual) 1 (0.1-1.2) Platelet Estimate Adequate Plt Morphology Comment Normal RBC Morph Comment Normal PT 10.1 (9.5-12.1) SECONDS INR 0.93 APTT 27 (24-31) SECONDS Sodium (136-145) mEq/L Potassium (3.5-5.1) mEq/L Chloride (98-107) mEq/L Carbon Dioxide (21-32) mEq/L Anion Gap (5-15) BUN (7-18) mg/dL Creatinine (0.55-1.02) mg/dL Est Cr Clr Drug Dosing mL/min Estimated GFR (MDRD) (>60) mL/min BUN/Creatinine Ratio (14-18) Glucose (74-106) mg/dL Calcium (8.5-10.1) mg/dL Total Bilirubin (0.2-1.0) mg/dL AST (15-37) U/L ALT (14-59) U/L Alkaline Phosphatase (46-116) U/L Total Protein (6.4-8.2) g/dl Albumin (3.4-5.0) g/dl Globulin gm/dL Albumin/Globulin Ratio (1-2) TSH 3rd Generation (0.358-3.74) uIU/mL Urine Color (Yellow) Urine Appearance (Clear) Urine pH (5.0-8.0) Ur Specific [place] (1.005-1.030) Urine Protein (Negative) Urine Glucose (UA) (Negative) Urine Ketones (Negative) Urine Occult Blood (Negative) Urine Nitrite (Negative) Urine Bilirubin (Negative) Urine Urobilinogen (0.2-1.0) Ur Leukocyte Esterase (Negative) Urine RBC (0-5) /hpf Urine WBC (0-5) /hpf Ur Epithelial Cells (0-5) /hpf Urine Bacteria (FEW) /hpf Urine Mucus (FEW) /hpf Salicylates 1.5 L (2.8-20) mg/dL Urine Opiates Screen (NEGATIVE) Ur Buprenorphine Scrn (NEGATIVE) Ur Oxycodone Screen (NEGATIVE) Urine Methadone Screen (NEGATIVE) Ur Propoxyphene Screen (NEGATIVE) Acetaminophen (10-30) ug/mL Ur Barbiturates Screen (NEGATIVE) Ur Tricyclics Screen (NEGATIVE) Ur Phencyclidine Scrn (NEGATIVE) Ur Amphetamine Screen (NEGATIVE) U Methamphetamines Scrn (NEGATIVE) U Benzodiazepines Scrn (NEGATIVE) U Cocaine Metab Screen (NEGATIVE) U Marijuana (THC) Screen (NEGATIVE) Ethyl Alcohol (0.00) gm% 12/18/17 12/18/17 12/18/17 Range/Units 19:28 19:28 20:10 WBC (3.98-10.04) K/mm3 RBC (3.98-5.22) M/mm3 Hgb (11.2-15.7) gm/L Hct (34.1-44.9) % MCV (79.4-94.8) fl MCH (25.6-32.2) pg MCHC (32.2-35.5) g/dl RDW Std Deviation (36.4-46.3) fL Plt Count (182-369) K/mm3 MPV (9.4-12.3) fl Neutrophils % (Manual) (40-60) % Band Neutrophils % (0-10) % Lymphocytes % (Manual) (20-40) % Atypical Lymphs % % Monocytes % (Manual) (2-10) % Eosinophils % (Manual) (0.7-5.8) % Basophils % (Manual) (0.1-1.2) Platelet Estimate Plt Morphology Comment RBC Morph Comment PT (9.5-12.1) SECONDS INR APTT (24-31) SECONDS Sodium 142 (136-145) mEq/L Potassium 3.9 (3.5-5.1) mEq/L Chloride 106 (98-107) mEq/L Carbon Dioxide 25 (21-32) mEq/L Anion Gap 14.9 (5-15) BUN 12 (7-18) mg/dL Creatinine 0.8 (0.55-1.02) mg/dL Est Cr Clr Drug Dosing 73.18 mL/min Estimated GFR (MDRD) > 60 (>60) mL/min BUN/Creatinine Ratio 15.0 (14-18) Glucose 103 (74-106) mg/dL Calcium 8.7 (8.5-10.1) mg/dL Total Bilirubin 0.3 (0.2-1.0) mg/dL AST 33 (15-37) U/L ALT 57 (14-59) U/L Alkaline Phosphatase 115 (46-116) U/L Total Protein 7.6 (6.4-8.2) g/dl Albumin 3.8 (3.4-5.0) g/dl Globulin 3.8 gm/dL Albumin/Globulin Ratio 1.0 (1-2) TSH 3rd Generation 5.376 H (0.358-3.74) uIU/mL Urine Color Yellow (Yellow) Urine Appearance Clear (Clear) Urine pH 6.0 (5.0-8.0) Ur Specific [place] 1.015 (1.005-1.030) Urine Protein Negative (Negative) Urine Glucose (UA) Negative (Negative) Urine Ketones Negative (Negative) Urine Occult Blood 1+ H (Negative) Urine Nitrite Negative (Negative) Urine Bilirubin Negative (Negative) Urine Urobilinogen 0.2 (0.2-1.0) Ur Leukocyte Esterase 1+ H (Negative) Urine RBC 0-5 (0-5) /hpf Urine WBC 10-20 H (0-5) /hpf Ur Epithelial Cells 10-20 H (0-5) /hpf Urine Bacteria Few (FEW) /hpf Urine Mucus Not seen (FEW) /hpf Salicylates (2.8-20) mg/dL Urine Opiates Screen (NEGATIVE) Ur Buprenorphine Scrn (NEGATIVE) Ur Oxycodone Screen (NEGATIVE) Urine Methadone Screen (NEGATIVE) Ur Propoxyphene Screen (NEGATIVE) Acetaminophen 0 L (10-30) ug/mL Ur Barbiturates Screen (NEGATIVE) Ur Tricyclics Screen (NEGATIVE) Ur Phencyclidine Scrn (NEGATIVE) Ur Amphetamine Screen (NEGATIVE) U Methamphetamines Scrn (NEGATIVE) U Benzodiazepines Scrn (NEGATIVE) U Cocaine Metab Screen (NEGATIVE) U Marijuana (THC) Screen (NEGATIVE) Ethyl Alcohol 0.19 (0.00) gm% 12/18/17 Range/Units 20:10 WBC (3.98-10.04) K/mm3 RBC (3.98-5.22) M/mm3 Hgb (11.2-15.7) gm/L Hct (34.1-44.9) % MCV (79.4-94.8) fl MCH (25.6-32.2) pg MCHC (32.2-35.5) g/dl RDW Std Deviation (36.4-46.3) fL Plt Count (182-369) K/mm3 MPV (9.4-12.3) fl Neutrophils % (Manual) (40-60) % Band Neutrophils % (0-10) % Lymphocytes % (Manual) (20-40) % Atypical Lymphs % % Monocytes % (Manual) (2-10) % Eosinophils % (Manual) (0.7-5.8) % Basophils % (Manual) (0.1-1.2) Platelet Estimate Plt Morphology Comment RBC Morph Comment PT (9.5-12.1) SECONDS INR APTT (24-31) SECONDS Sodium (136-145) mEq/L Potassium (3.5-5.1) mEq/L Chloride (98-107) mEq/L Carbon Dioxide (21-32) mEq/L Anion Gap (5-15) BUN (7-18) mg/dL Creatinine (0.55-1.02) mg/dL Est Cr Clr Drug Dosing mL/min Estimated GFR (MDRD) (>60) mL/min BUN/Creatinine Ratio (14-18) Glucose (74-106) mg/dL Calcium (8.5-10.1) mg/dL Total Bilirubin (0.2-1.0) mg/dL AST (15-37) U/L ALT (14-59) U/L Alkaline Phosphatase (46-116) U/L Total Protein (6.4-8.2) g/dl Albumin (3.4-5.0) g/dl Globulin gm/dL Albumin/Globulin Ratio (1-2) TSH 3rd Generation (0.358-3.74) uIU/mL Urine Color (Yellow) Urine Appearance (Clear) Urine pH (5.0-8.0) Ur Specific [place] (1.005-1.030) Urine Protein (Negative) Urine Glucose (UA) (Negative) Urine Ketones (Negative) Urine Occult Blood (Negative) Urine Nitrite (Negative) Urine Bilirubin (Negative) Urine Urobilinogen (0.2-1.0) Ur Leukocyte Esterase (Negative) Urine RBC (0-5) /hpf Urine WBC (0-5) /hpf Ur Epithelial Cells (0-5) /hpf Urine Bacteria (FEW) /hpf Urine Mucus (FEW) /hpf Salicylates (2.8-20) mg/dL Urine Opiates Screen Negative (NEGATIVE) Ur Buprenorphine Scrn Negative (NEGATIVE) Ur Oxycodone Screen Negative (NEGATIVE) Urine Methadone Screen Negative (NEGATIVE) Ur Propoxyphene Screen Negative (NEGATIVE) Acetaminophen (10-30) ug/mL Ur Barbiturates Screen Negative (NEGATIVE) Ur Tricyclics Screen Negative (NEGATIVE) Ur Phencyclidine Scrn Negative (NEGATIVE) Ur Amphetamine Screen Negative (NEGATIVE) U Methamphetamines Scrn Negative (NEGATIVE) U Benzodiazepines Scrn Presumptive positive H (NEGATIVE) U Cocaine Metab Screen Negative (NEGATIVE) U Marijuana (THC) Screen Negative (NEGATIVE) Ethyl Alcohol (0.00) gm% Result Diagrams: 12/18/17 19:28 12/18/17 19:28 Orders Last 24hrs: Active Orders 24 hr Category Date Time Status Patient Status [ADT] Routine ADT 12/18/17 23:56 Active EKG Documentation Completion [RC] STAT Care 12/18/17 20:35 Active Clear Liquid Diet [DIET] Diet 12/19/17 Breakfast Active Chest Abdomen Pelvis w Cont [CT] Stat Exams 12/18/17 19:17 Taken Acetaminophen [Tylenol] Med 12/18/17 23:52 Active 650 mg PO Q6H PRN Temazepam [Restoril] Med 12/18/17 23:53 Active 30 mg PO BEDTIME PRN Code Status [Resuscitation Status] Routine Resus Stat 12/19/17 00:06 Ordered Medication Orders Acetaminophen (Tylenol) 650 mg PO Q6H PRN PRN Reason: Pain Last Admin: 12/19/17 07:37 Dose: 650 mg Admin: 12/19/17 01:33 Dose: 650 mg Temazepam (Restoril) 30 mg PO BEDTIME PRN PRN Reason: Sleep Last Admin: 12/19/17 01:33 Dose: 30 mg
--- NOTE | 2017-12-19 10:17 | CT ---
CT chest Technique: Multiple axial sections were obtained through the chest. Intravenous contrast was utilized. Comparison: Prior chest CT of 03/11/14. Findings: Mediastinum and hilar regions are within normal limits. No contrast extravasation is seen. No pericardial fluid is seen. Lungs are clear without acute parenchymal change. No pneumothorax is seen. Bone window settings show no discrete rib fracture. Nothing acute is seen within the thoracic spine or sternum. Impression: 1. Nothing acute is identified on CT study of the chest. Diagnostic code #1 CT abdomen and pelvis Technique: Multiple axial sections were obtained from above the dome of the diaphragm inferiorly through the pubic symphysis. Intravenous contrast was utilized. No oral contrast has been given. Comparison: Prior CT abdomen and pelvis exam of 12/13/17. Findings: Liver appears within normal limits. Adrenal glands are normal. Spleen appears normal. Pancreas is within normal limits. Surgical clips are seen from prior cholecystectomy. Kidneys show symmetric contrast enhancement without hydronephrosis or mass. Aorta shows no aneurysm. No extravasation of contrast is seen. No pelvic mass or adenopathy is seen. No free fluid is seen. Delayed images show contrast excretion into the ureters with no extravasation. Contrast is noted within the bladder. Increased density is noted presumably from soft tissue injury within the left side of the anterior mid abdominal wall. Small soft tissue nodule most likely benign is seen within the lower left anterior abdominal wall within the pelvis. Bone window settings were reviewed which appear within normal limits for the patient's age. Impression: 1. Soft tissue density within the left mid anterior abdominal wall compatible with superficial injury within the skin and subcutaneous fat. No extension into the abdominal wall is noted. 2. Contrast noted on delayed images within the ureters. Previous small calcification believed to be present within the distal left ureter is again noted and appears to be very close but likely outside the ureter and not representing a nonobstructing stone as suggested on previous report. 3. Other incidental findings as noted above. No acute intra-abdominal abnormality is seen. Diagnostic code #2
[2017-12-19] MEDS ORDERED: Ondansetron 4 MG Tab.DIS PO PRN (10:26)
[2017-12-19] MEDS: chlordiazePOXIDE 25 MG Cap PO SCH ×2 (14:02→20:09)
[2017-12-19] MEDS ORDERED: Nitroglycerin 0.4 MG Tab.SL SL PRN (17:11)
--- NOTE | 2017-12-19 19:25 | PCM.PN ---
- General Info Date of Service: 12/19/17 - Patient Data Vitals - Most Recent: Last Vital Signs Temp 36.7 C 12/19/17 15:28 Pulse 66 12/19/17 15:28 Resp 16 12/19/17 15:28 BP 143/94 H 12/19/17 17:17 Pulse Ox 97 12/19/17 15:28 Weight - Most Recent: 98.52 kg I&O - Last 24 Hours: Intake & Output 12/19/17 12/19/17 12/19/17 06:59 14:59 22:59 Intake Total 326 523 4855 Output Total 300 150 Balance -090 214 3163 Lab Results Last 24 Hours: Laboratory Results - last 24 hr 12/18/17 12/18/17 12/18/17 Range/Units 07:28 19:28 19:28 WBC 6.65 (3.98-10.04) K/mm3 RBC 4.51 (3.98-5.22) M/mm3 Hgb 14.6 (11.2-15.7) gm/L Hct 43.4 (34.1-44.9) % MCV 96.2 H (79.4-94.8) fl MCH 32.4 H (25.6-32.2) pg MCHC 33.6 (32.2-35.5) g/dl RDW Std Deviation 42.3 (36.4-46.3) fL Plt Count 358 (182-369) K/mm3 MPV 9.8 (9.4-12.3) fl Neutrophils % (Manual) 39 L (40-60) % Band Neutrophils % 0 (0-10) % Lymphocytes % (Manual) 55 H (20-40) % Atypical Lymphs % 0 % Monocytes % (Manual) 1 L (2-10) % Eosinophils % (Manual) 4 (0.7-5.8) % Basophils % (Manual) 1 (0.1-1.2) Platelet Estimate Adequate Plt Morphology Comment Normal RBC Morph Comment Normal PT 10.1 (9.5-12.1) SECONDS INR 0.93 APTT 27 (24-31) SECONDS Sodium (136-145) mEq/L Potassium (3.5-5.1) mEq/L Chloride (98-107) mEq/L Carbon Dioxide (21-32) mEq/L Anion Gap (5-15) BUN (7-18) mg/dL Creatinine (0.55-1.02) mg/dL Est Cr Clr Drug Dosing mL/min Estimated GFR (MDRD) (>60) mL/min BUN/Creatinine Ratio (14-18) Glucose (74-106) mg/dL Calcium (8.5-10.1) mg/dL Total Bilirubin (0.2-1.0) mg/dL AST (15-37) U/L ALT (14-59) U/L Alkaline Phosphatase (46-116) U/L Total Protein (6.4-8.2) g/dl Albumin (3.4-5.0) g/dl Globulin gm/dL Albumin/Globulin Ratio (1-2) TSH 3rd Generation (0.358-3.74) uIU/mL Urine Color (Yellow) Urine Appearance (Clear) Urine pH (5.0-8.0) Ur Specific [place] (1.005-1.030) Urine Protein (Negative) Urine Glucose (UA) (Negative) Urine Ketones (Negative) Urine Occult Blood (Negative) Urine Nitrite (Negative) Urine Bilirubin (Negative) Urine Urobilinogen (0.2-1.0) Ur Leukocyte Esterase (Negative) Urine RBC (0-5) /hpf Urine WBC (0-5) /hpf Ur Epithelial Cells (0-5) /hpf Urine Bacteria (FEW) /hpf Urine Mucus (FEW) /hpf Salicylates 1.5 L (2.8-20) mg/dL Urine Opiates Screen (NEGATIVE) Ur Buprenorphine Scrn (NEGATIVE) Ur Oxycodone Screen (NEGATIVE) Urine Methadone Screen (NEGATIVE) Ur Propoxyphene Screen (NEGATIVE) Acetaminophen (10-30) ug/mL Ur Barbiturates Screen (NEGATIVE) Ur Tricyclics Screen (NEGATIVE) Ur Phencyclidine Scrn (NEGATIVE) Ur Amphetamine Screen (NEGATIVE) U Methamphetamines Scrn (NEGATIVE) U Benzodiazepines Scrn (NEGATIVE) U Cocaine Metab Screen (NEGATIVE) U Marijuana (THC) Screen (NEGATIVE) Ethyl Alcohol (0.00) gm% 12/18/17 12/18/17 12/18/17 Range/Units 19:28 19:28 20:10 WBC (3.98-10.04) K/mm3 RBC (3.98-5.22) M/mm3 Hgb (11.2-15.7) gm/L Hct (34.1-44.9) % MCV (79.4-94.8) fl MCH (25.6-32.2) pg MCHC (32.2-35.5) g/dl RDW Std Deviation (36.4-46.3) fL Plt Count (182-369) K/mm3 MPV (9.4-12.3) fl Neutrophils % (Manual) (40-60) % Band Neutrophils % (0-10) % Lymphocytes % (Manual) (20-40) % Atypical Lymphs % % Monocytes % (Manual) (2-10) % Eosinophils % (Manual) (0.7-5.8) % Basophils % (Manual) (0.1-1.2) Platelet Estimate Plt Morphology Comment RBC Morph Comment PT (9.5-12.1) SECONDS INR APTT (24-31) SECONDS Sodium 142 (136-145) mEq/L Potassium 3.9 (3.5-5.1) mEq/L Chloride 106 (98-107) mEq/L Carbon Dioxide 25 (21-32) mEq/L Anion Gap 14.9 (5-15) BUN 12 (7-18) mg/dL Creatinine 0.8 (0.55-1.02) mg/dL Est Cr Clr Drug Dosing 73.18 mL/min Estimated GFR (MDRD) > 60 (>60) mL/min BUN/Creatinine Ratio 15.0 (14-18) Glucose 103 (74-106) mg/dL Calcium 8.7 (8.5-10.1) mg/dL Total Bilirubin 0.3 (0.2-1.0) mg/dL AST 33 (15-37) U/L ALT 57 (14-59) U/L Alkaline Phosphatase 115 (46-116) U/L Total Protein 7.6 (6.4-8.2) g/dl Albumin 3.8 (3.4-5.0) g/dl Globulin 3.8 gm/dL Albumin/Globulin Ratio 1.0 (1-2) TSH 3rd Generation 5.376 H (0.358-3.74) uIU/mL Urine Color Yellow (Yellow) Urine Appearance Clear (Clear) Urine pH 6.0 (5.0-8.0) Ur Specific [place] 1.015 (1.005-1.030) Urine Protein Negative (Negative) Urine Glucose (UA) Negative (Negative) Urine Ketones Negative (Negative) Urine Occult Blood 1+ H (Negative) Urine Nitrite Negative (Negative) Urine Bilirubin Negative (Negative) Urine Urobilinogen 0.2 (0.2-1.0) Ur Leukocyte Esterase 1+ H (Negative) Urine RBC 0-5 (0-5) /hpf Urine WBC 10-20 H (0-5) /hpf Ur Epithelial Cells 10-20 H (0-5) /hpf Urine Bacteria Few (FEW) /hpf Urine Mucus Not seen (FEW) /hpf Salicylates (2.8-20) mg/dL Urine Opiates Screen (NEGATIVE) Ur Buprenorphine Scrn (NEGATIVE) Ur Oxycodone Screen (NEGATIVE) Urine Methadone Screen (NEGATIVE) Ur Propoxyphene Screen (NEGATIVE) Acetaminophen 0 L (10-30) ug/mL Ur Barbiturates Screen (NEGATIVE) Ur Tricyclics Screen (NEGATIVE) Ur Phencyclidine Scrn (NEGATIVE) Ur Amphetamine Screen (NEGATIVE) U Methamphetamines Scrn (NEGATIVE) U Benzodiazepines Scrn (NEGATIVE) U Cocaine Metab Screen (NEGATIVE) U Marijuana (THC) Screen (NEGATIVE) Ethyl Alcohol 0.19 (0.00) gm% 12/18/17 Range/Units 20:10 WBC (3.98-10.04) K/mm3 RBC (3.98-5.22) M/mm3 Hgb (11.2-15.7) gm/L Hct (34.1-44.9) % MCV (79.4-94.8) fl MCH (25.6-32.2) pg MCHC (32.2-35.5) g/dl RDW Std Deviation (36.4-46.3) fL Plt Count (182-369) K/mm3 MPV (9.4-12.3) fl Neutrophils % (Manual) (40-60) % Band Neutrophils % (0-10) % Lymphocytes % (Manual) (20-40) % Atypical Lymphs % % Monocytes % (Manual) (2-10) % Eosinophils % (Manual) (0.7-5.8) % Basophils % (Manual) (0.1-1.2) Platelet Estimate Plt Morphology Comment RBC Morph Comment PT (9.5-12.1) SECONDS INR APTT (24-31) SECONDS Sodium (136-145) mEq/L Potassium (3.5-5.1) mEq/L Chloride (98-107) mEq/L Carbon Dioxide (21-32) mEq/L Anion Gap (5-15) BUN (7-18) mg/dL Creatinine (0.55-1.02) mg/dL Est Cr Clr Drug Dosing mL/min Estimated GFR (MDRD) (>60) mL/min BUN/Creatinine Ratio (14-18) Glucose (74-106) mg/dL Calcium (8.5-10.1) mg/dL Total Bilirubin (0.2-1.0) mg/dL AST (15-37) U/L ALT (14-59) U/L Alkaline Phosphatase (46-116) U/L Total Protein (6.4-8.2) g/dl Albumin (3.4-5.0) g/dl Globulin gm/dL Albumin/Globulin Ratio (1-2) TSH 3rd Generation (0.358-3.74) uIU/mL Urine Color (Yellow) Urine Appearance (Clear) Urine pH (5.0-8.0) Ur Specific [place] (1.005-1.030) Urine Protein (Negative) Urine Glucose (UA) (Negative) Urine Ketones (Negative) Urine Occult Blood (Negative) Urine Nitrite (Negative) Urine Bilirubin (Negative) Urine Urobilinogen (0.2-1.0) Ur Leukocyte Esterase (Negative) Urine RBC (0-5) /hpf Urine WBC (0-5) /hpf Ur Epithelial Cells (0-5) /hpf Urine Bacteria (FEW) /hpf Urine Mucus (FEW) /hpf Salicylates (2.8-20) mg/dL Urine Opiates Screen Negative (NEGATIVE) Ur Buprenorphine Scrn Negative (NEGATIVE) Ur Oxycodone Screen Negative (NEGATIVE) Urine Methadone Screen Negative (NEGATIVE) Ur Propoxyphene Screen Negative (NEGATIVE) Acetaminophen (10-30) ug/mL Ur Barbiturates Screen Negative (NEGATIVE) Ur Tricyclics Screen Negative (NEGATIVE) Ur Phencyclidine Scrn Negative (NEGATIVE) Ur Amphetamine Screen Negative (NEGATIVE) U Methamphetamines Scrn Negative (NEGATIVE) U Benzodiazepines Scrn Presumptive positive H (NEGATIVE) U Cocaine Metab Screen Negative (NEGATIVE) U Marijuana (THC) Screen Negative (NEGATIVE) Ethyl Alcohol (0.00) gm% Med Orders - Current: Current Medications Acetaminophen (Tylenol) 650 mg PO Q6H PRN PRN Reason: Pain Last Admin: 12/19/17 13:17 Dose: 650 mg Chlordiazepoxide HCl (Librium) 25 mg PO TID HÉCTOR Last Admin: 12/19/17 14:02 Dose: 25 mg Enoxaparin Sodium (Lovenox) 40 mg SUBCUT DAILY [facility] Gabapentin (Neurontin) 300 mg PO BID HÉCTOR Levothyroxine Sodium (Synthroid) 50 mcg PO ACBREAKFAST [facility] Nitroglycerin (Nitrostat) 0.4 mg SL Q5M PRN PRN Reason: Chest Pain Last Admin: 12/19/17 17:17 Dose: 0.4 mg Ondansetron HCl (Zofran Odt) 4 mg PO Q6H PRN PRN Reason: nausea and or vomiting Naltrexone 50 Mg 0 each PO DAILY HÉCTOR Temazepam (Restoril) 30 mg PO BEDTIME PRN PRN Reason: Sleep Last Admin: 12/19/17 01:33 Dose: 30 mg Trazodone HCl (Trazodone Hcl) 300 mg PO BEDTIME [facility] Discontinued Medications Acetaminophen (Tylenol) 650 mg PO ONETIME ONE Stop: 12/18/17 21:15 Last Admin: 12/18/17 21:26 Dose: 650 mg Gabapentin (Neurontin) 300 mg PO DAILY [facility] Sodium Chloride (Normal Saline) 1,000 mls @ 150 mls/hr IV ONETIME ONE Stop: 12/19/17 01:53 Last Admin: 12/18/17 20:09 Dose: 150 mls/hr Iopamidol (Isovue-300 (61%)) 125 ml IVPUSH ONETIME ONE Stop: 12/18/17 19:22 Last Admin: 12/18/17 19:36 Dose: 115 ml Sodium Chloride (Saline Flush) 10 ml FLUSH ONETIME ONE Stop: 12/18/17 19:22 Last Admin: 12/18/17 19:35 Dose: 10 ml - My Orders Last 24 Hours: My Active Orders 12/18/17 23:52 Acetaminophen [Tylenol] 650 mg PO Q6H PRN 12/18/17 23:53 Temazepam [Restoril] 30 mg PO BEDTIME PRN 12/18/17 23:56 Patient Status [ADT] Routine 12/19/17 00:06 Code Status [Resuscitation Status] Routine 12/19/17 10:26 Ondansetron [Zofran ODT] 4 mg PO Q6H PRN 12/19/17 15:00 chlordiazePOXIDE [Librium] 25 mg PO TID 12/19/17 17:11 Nitroglycerin [Nitrostat] 0.4 mg SL Q5M PRN 12/19/17 17:12 EKG Documentation Completion [RC] ASDIRECTED EKG 12 Lead [EK] Stat 12/19/17 18:45 Enoxaparin [Lovenox] 40 mg SUBCUT DAILY 12/19/17 21:00 Gabapentin [Neurontin] 300 mg PO BID traZODone HCl [Trazodone HCl] 300 mg PO BEDTIME 12/19/17 Lunch Heart Healthy Diet [DIET] 12/20/17 05:00 BMP [BASIC METABOLIC PANEL,BMP] [CHEM] Routine CBC WITH AUTO DIFF [HEME] Routine FREE T3 [REF] Routine MG [MAGNESIUM] [CHEM] Routine THYROXINE (T4) [REF] Routine 12/20/17 06:00 Levothyroxine [Synthroid] 50 mcg PO ACBREAKFAST 12/20/17 09:00 Patient's Own Medication [Ptom] 0 each PO DAILY
[2017-12-19] MEDS: Enoxaparin 40 MG/0.4 ML Syringe SUBCUT SCH (20:08)
[2017-12-19] MEDS: Gabapentin 300 MG Cap PO SCH (20:09)
[2017-12-20] MEDS: Acetaminophen 325 MG Tab PO PRN (05:57)
[2017-12-20] MEDS: Levothyroxine 50 MCG Tab PO SCH (05:57)
[2017-12-20] MEDS ORDERED: Gabapentin 300 MG Cap PO SCH (09:00)
[2017-12-20] MEDS: Enoxaparin 40 MG/0.4 ML Syringe SUBCUT SCH (10:27)
[2017-12-20] MEDS: Gabapentin 300 MG Cap PO SCH ×2 (10:27→20:24)
[2017-12-20] MEDS: chlordiazePOXIDE 25 MG Cap PO SCH ×3 (10:27→20:24)
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
[2017-12-20] MEDS ORDERED: Metoprolol Tartrate 5 MG/5 ML SDV IVPUSH PRN (14:02)
[2017-12-20] MEDS ORDERED: LORazepam 2 MG/ML SDV IVPUSH PRN ×2 (14:02→14:03)
[2017-12-20] MEDS ORDERED: hydrALAZINE 20 MG/ML SDV IVPUSH PRN (14:02)
[2017-12-20] MEDS: Thiamine 100 MG Tab PO SCH (15:31)
[2017-12-20] MEDS: Multivitamins,Therapeutic Tab PO SCH (15:31)
[2017-12-20] MEDS: Folic Acid 1 MG Tab PO SCH (15:31)
[2017-12-20] MEDS ORDERED: Nicotine 21 MG/24 Hr Patch TRDERM PRN (16:08)
[2017-12-20] MEDS: Lactated Ringers 1,000 ML IV SCH ×4 (18:51→22:24)
[2017-12-20] MEDS ORDERED: QUEtiapine 25 MG Tab PO SCH (21:00)
[2017-12-21] MEDS ORDERED: Lactated Ringers 1,000 ML ONE (02:13)
[2017-12-21] MEDS: Levothyroxine 50 MCG Tab PO SCH (05:16)
--- NOTE | 2017-12-21 07:36 | PCM.SN ---
- Free Text/Narrative Note: Lab draw (ICU) 12-21-17 Start 10 End 719 Called by lab regarding a patient in need of lab testing with difficult vascular accessibility. Right antecubital area prepped with chloraprep. Sterile US gel used on site. 23ga 1.25" needle used to access vein under ultrasound guidance. 3ml of blood collected. Patient tolerated well. Pressure applied to site and dressed with gauze and tape. Kyrie Jean, BEEF RIBBER
[2017-12-21] MEDS: Multivitamins,Therapeutic Tab PO SCH (08:23)
[2017-12-21] MEDS: Gabapentin 300 MG Cap PO SCH (08:24)
[2017-12-21] MEDS: LORazepam 0.5 MG Tab PO PRN ×2 (08:24→15:39)
[2017-12-21] MEDS: Thiamine 100 MG Tab PO SCH (08:24)
[2017-12-21] MEDS: Folic Acid 1 MG Tab PO SCH (08:24)
[2017-12-21] MEDS: Enoxaparin 40 MG/0.4 ML Syringe SUBCUT SCH (08:28)
[2017-12-21] MEDS ORDERED: Topiramate 25 MG Tab PO SCH (09:00)
[2017-12-21] MEDS ORDERED: QUEtiapine 25 MG Tab PO ONE (09:24)
[2017-12-21] MEDS: chlordiazePOXIDE 25 MG Cap PO SCH ×2 (09:34→15:24)
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
[2017-12-21 15:25] VITALS: BP 123/109
== END 2017-12-21 15:45 | DRG 605 ==
LOC: SUPCPDRO 19:07 → JD.ED 19:07 → JD.MS 23:06 → OBSVTOIN 12-20 13:59 → JD.ICU 12-20 15:59
PROVIDERS: ADMIT Internal Medicine Cardiovascular Disease; ATTEND Internal Medicine Cardiovascular Disease
DX: S31.119A Laceration without foreign body of abdominal wall, unspecified quadrant without penetration into peritoneal cavity, initial encounter (principal); F10.239 Alcohol dependence with withdrawal, unspecified; X78.1XXA Intentional self-harm by knife, initial encounter; I10 Essential (primary) hypertension; K29.70 Gastritis, unspecified, without bleeding; K21.9 Gastro-esophageal reflux disease without esophagitis; K22.2 Esophageal obstruction; R32 Unspecified urinary incontinence; G89.29 Other chronic pain; M54.9 Dorsalgia, unspecified; F41.9 Anxiety disorder, unspecified; F32.9 Major depressive disorder, single episode, unspecified; F60.9 Personality disorder, unspecified; F10.229 Alcohol dependence with intoxication, unspecified; E03.9 Hypothyroidism, unspecified; E78.5 Hyperlipidemia, unspecified; H54.7 Unspecified visual loss; G47.30 Sleep apnea, unspecified; E78.00 Pure hypercholesterolemia, unspecified; J45.909 Unspecified asthma, uncomplicated; G43.909 Migraine, unspecified, not intractable, without status migrainosus; F17.210 Nicotine dependence, cigarettes, uncomplicated; E66.9 Obesity, unspecified; Z68.34 Body mass index [BMI] 34.0-34.9, adult; Z88.6 Allergy status to analgesic agent; Z88.2 Allergy status to sulfonamides; Z79.899 Other long term (current) drug therapy; Z90.710 Acquired absence of both cervix and uterus; Z90.49 Acquired absence of other specified parts of digestive tract; Z86.73 Personal history of transient ischemic attack (TIA), and cerebral infarction without residual deficits; Z88.8 Allergy status to other drugs, medicaments and biological substances
CPT/HCPCS: 36415; 71260; 71260-26; 74177; 74177-26; 80048; 80053; 80306; 81001; 83735; 84436; 84443; 84481; 85007; 85025; 85027; 85610; 85730; 93005; 93010; 96360; 96361; 96372; 99285-25; A9270-GY; G0378; G0480; J1650; J2060; J7040; J7050; J7120; Q9967

== ENCOUNTER 2018-04-20 10:22 | Emergency (ER) | payer MEDICAID ==
[2018-04-20 10:40] VITALS: BP 121/90
[2018-04-20] MEDS ORDERED: Orphenadrine 100 MG Tab.ER PO ONE (11:30)
[2018-04-20] MEDS ORDERED: Dexamethasone 10 MG/ML SDV IM ONE (11:30)
--- NOTE | 2018-04-20 11:40 | EDM.PDOC ---
ED HPI GENERAL MEDICAL PROBLEM - General Chief Complaint: Back Pain or Injury Stated Complaint: low back pain Time Seen by Provider: 04/20/18 11:08 Source of Information: Reports: Patient, Old Records, RN Notes Reviewed History Limitations: Reports: No Limitations - History of Present Illness INITIAL COMMENTS - FREE TEXT/NARRATIVE: Patient is a 52 year old female who presents to the ED for the evaluation of lower back pain. This is a chronic problem for her. She states that on Wednesday she was at work and fluffing some sheets when she wrenched her back. She states that she did rest yesterday in hopes that this would get better, but it has not. She states that the pain is a 9/10 and radiates down her left leg primarily , and is stabbing and intense in nature. She did take 2 tabs of tylenol (3 doses total) yesterday, and states this did not provide much relief. She states that she has some issues with urinary incontinence that she has a bladder stimulator for, but notes that she is having this taken out on May 09, due to complications. She further notes mild allergy to NSAIDs (ibuprofen, toradol) and tramadol for which she breaks out in an itchy skin rash. Her primary care provider is Demian Limon PA-C. She denies any fever/chills, nausea/vomiting/ diarrhea, chest pain, shortness of breath, abdominal pain, any increased urinary incontinence or saddle anesthesia. She states that it is hard to find a comfortable position. - Related Data Allergies Allergy/AdvReac Type Severity Reaction Status Date / Time ibuprofen Allergy Rash Verified 04/20/18 10:40 Sulfa (Sulfonamide Allergy Rash Verified 04/20/18 10:40 Antibiotics) sumatriptan [From Imitrex] Allergy Anaphylactic Verified 04/20/18 10:40 Shock tramadol Allergy Rash Verified 04/20/18 10:40 Home Meds: Home Meds Omeprazole Magnesium [Prilosec Otc] 20 mg PO DAILY 12/01/17 [History] Levothyroxine [Synthroid] 50 mcg PO ACBREAKFAST tablet 12/21/17 [Rx] Venlafaxine [Effexor] 150 mg PO DAILY 01/28/18 [History] hydrOXYzine HCl [hydrOXYzine] 50 mg PO BID 01/28/18 [History] Gabapentin [Neurontin] 300 mg PO DAILY 02/16/18 [History] traZODone HCl [Trazodone HCl] 200 mg PO BEDTIME 02/16/18 [History] Orphenadrine [Norflex] 100 mg PO BID PRN #20 tab 04/20/18 [Rx] predniSONE [Prednisone] 10 mg PO ACBREAKFAST #1 tab.ds.pk 04/20/18 [Rx] Past Medical History HEENT History: Reports: Allergic Rhinitis, Impaired Vision Other HEENT History: wears corrective lenses, dental infection Cardiovascular History: Reports: High Cholesterol Respiratory History: Reports: Sleep Apnea, Other (See Below) Other Respiratory History: left lung nodule, restrictive lung disease, cough, shortness of breath, pleural thickening, pleuritic chest pain Gastrointestinal History: Reports: Gastritis, GERD, Other (See Below) Other Gastrointestinal History: esophageal stricture, abdominal pain lower, elevated liver enzymes Genitourinary History: Reports: Urinary Incontinence, UTI, Recurrent, Other ( See Below) Other Genitourinary History: implantable device interstim RLQ- removed 08/16/17 ; interstim neurotransmitter placed jan 2018-left buttocks EXHAUST 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 History: Reports: Musculoskeletal History: Reports: Back Pain, Chronic, Neck Pain, Chronic, Osteoarthritis Neurological History: Reports: CVA, Migraines, Seizure, Other (See Below) Other Neuro History: patient reports "nervous tics", nerve pain, dizziness Psychiatric History: Reports: Addiction, Anxiety, Depression, Suicide Attempt, Other (See Below) Other Psychiatric History: drug overdose, personality disorder, alcohol withdrawal Endocrine/Metabolic History: Reports: Hypothyroidism, Obesity/BMI 30+ Other Endocrine/Metabolic History: reports hypothyroidism 15 years ago that corrected itself Hematologic History: Reports: None Immunologic History: Reports: None Oncologic (Cancer) History: Reports: None Dermatologic History: Reports: Other (See Below) Other Dermatologic History: skin lesion - Infectious Disease History Infectious Disease History: Reports: Chicken Pox - Past Surgical History HEENT Surgical History: Reports: None Cardiovascular Surgical History: Reports: None GI Surgical History: Reports: Appendectomy, Cholecystectomy, EGD Female Surgical History: Reports: Hysterectomy, Salpingo-Oophorectomy, Tubal Ligation, Other (See Below) Other Female Surgeries/Procedures: bladder sling 09/2017 Endocrine Surgical History: Reports: None Musculoskeletal Surgical History: Reports: None Oncologic Surgical History: Reports: None Social & Family History - Family History Family Medical History: Noncontributory Cardiac: Reports: Bypass, CAD, Heart Failure - Tobacco Use Smoking Status *Q: Current Every Day Smoker Years of Tobacco use: 15 Packs/Tins Daily: 0.5 - Caffeine Use Caffeine Use: Reports: Coffee - Recreational Drug Use Recreational Drug Use: No - Living Situation & Occupation Living situation: Reports: , Other (with roomate) Occupation: Unemployed ED ROS GENERAL - Review of Systems Review Of Systems: See Below Constitutional: Reports: No Symptoms HEENT: Reports: No Symptoms Respiratory: Reports: No Symptoms Cardiovascular: Reports: No Symptoms Endocrine: Reports: No Symptoms GI/Abdominal: Reports: No Symptoms : Reports: No Symptoms Musculoskeletal: Reports: Back Pain, Leg Pain (left leg pain) Skin: Reports: No Symptoms Neurological: Denies: Numbness, Tingling, Difficulty Walking Psychiatric: Reports: No Symptoms Hematologic/Lymphatic: Reports: No Symptoms Immunologic: Reports: No Symptoms ED EXAM,LOWER BACK PAIN/INJURY - Physical Exam Exam: See Below Exam Limited By: No Limitations General Appearance: Alert, WD/WN, No Apparent Distress Eye Exam: Bilateral Eye: Normal Inspection, PERRL Ears: Normal External Exam Nose: Normal Inspection Throat/Mouth: Normal Inspection Head: Atraumatic, Normocephalic Neck: Normal Inspection Respiratory/Chest: No Respiratory Distress, Lungs Clear, Normal Breath Sounds, No Accessory Muscle Use, Chest Non-Tender Cardiovascular: Normal Peripheral Pulses, Regular Rate, Rhythm, No Murmur GI/Abdominal: Normal Bowel Sounds, Soft, Non-Tender, No Distention Back Exam: Normal Inspection, Decreased Range of Motion (due to pain), Muscle Spasm (lumbar back). No: CVA Tenderness (L), CVA Tenderness (R) Extremities: Normal Inspection, Normal Range of Motion, Normal Capillary Refill Neurological: Alert, Normal Mood/Affect, Normal Dorsiflexion, Normal Plantar Flexion, Normal Gait, Normal Reflexes, No Motor/Sensory Deficits, Oriented x 3, Straight Leg Raise (L). No: Saddle Anesthesia Psychiatric: Normal Affect, Normal Mood Skin Exam: Warm, Dry, Intact, Normal Color, No Rash Course - Vital Signs Last Recorded V/S: Last Vital Signs Temp 98.4 F 04/20/18 10:35 Pulse 76 04/20/18 10:35 Resp 13 04/20/18 10:35 BP 121/90 04/20/18 10:35 Pulse Ox 100 04/20/18 10:35 - Re-Assessments/Exams Free Text/Narrative Re-Assessment/Exam: 04/20/18 11:50 Pt presents to the ED for the evaluation of acute on chronic lower back pain with radiation to her left leg. Due to her extensive history of prescription narcotic usage, I do not feel comfortable giving her any opioid pain medications at this ED visit. I have ordered 10mg IM dexamethasone for anti- inflammatory effect due to stated NSAID allergy, and 100mg Norflex for muscle spasm relief. Have recommended that she modify her actions at work to reduce further injuries to her back. Will recommend Ice, heat and rest therapy in combination with norflex and steroid burst for home use. Departure - Departure Time of Disposition: 11:55 Disposition: Home, Self-Care 01 Condition: Fair Clinical Impression: Low back pain Qualifiers: Chronicity: acute Back pain laterality: left Sciatica presence: with sciatica Sciatica laterality: sciatica of left side Qualified Code(s): M54.42 - Lumbago with sciatica, left side - Discharge Information *PRESCRIPTION DRUG MONITORING PROGRAM REVIEWED*: No *COPY OF PRESCRIPTION DRUG MONITORING REPORT IN PATIENT LEONEL: No Instructions: Muscle Strain, [id number], Back Pain, Adult, [id number] Referrals: Demian Limon PA [Physician Home Furnishings Sales Representative] - Forms: ED Department Discharge, ED Return to Work/School Form Additional Instructions: You have been evaluated in the ED for your lower back pain Please use ice/heat as tolerated to the affected area. You may take tylenol 500-1000 mg q6 hrs for pain relief. Please do so until you have a tolerable level of pain with activity. Do not exceed 4000mg tylenol in one day. You have been provided with a muscle relaxer for muscle spasm, please take this twice daily PRN. Please take the prednisone, as directed, for anti-inflammatory effects due to your stated allergy to NSAIDs. Please return to ED if your symptoms should change or worsen.
== END 2018-04-20 12:12 | disposition home or self-care (01) ==
LOC: JD.ED 10:22
DX: M54.42 Lumbago with sciatica, left side (principal); M62.830 Muscle spasm of back; F41.9 Anxiety disorder, unspecified; F32.9 Major depressive disorder, single episode, unspecified; E03.9 Hypothyroidism, unspecified; F17.210 Nicotine dependence, cigarettes, uncomplicated; Z90.49 Acquired absence of other specified parts of digestive tract; Z90.710 Acquired absence of both cervix and uterus; Z98.51 Tubal ligation status; Z86.73 Personal history of transient ischemic attack (TIA), and cerebral infarction without residual deficits; Z79.899 Other long term (current) drug therapy; Z88.2 Allergy status to sulfonamides; Z88.6 Allergy status to analgesic agent; Z88.5 Allergy status to narcotic agent
CPT/HCPCS: 96372; 99283; A9270; J1100

== ENCOUNTER 2018-05-19 15:03 | Emergency (ER) | payer MEDICAID ==
[2018-05-19 15:14] VITALS: BP 126/105
--- NOTE | 2018-05-19 15:28 | EDM.PDOC ---
ED HPI GENERAL MEDICAL PROBLEM - General Chief Complaint: Back Pain or Injury Stated Complaint: CHECK INCISION ON BACK FOR INFECTION Time Seen by Provider: 05/19/18 15:15 Source of Information: Reports: Patient, RN Notes Reviewed History Limitations: Reports: No Limitations - History of Present Illness INITIAL COMMENTS - FREE TEXT/NARRATIVE: Patient is a 52 year old female who presents to the ED for the evaluation of surgical incision check. She had a surgical removal of an interstim device 10 days ago. She is having increased pain in her low back, near the incision sites. She was given 15 tabs of [place] 10/325 by her surgeon and has ran out of this yesterday, she has been using Tylenol, but is not helping much. The patient rates her pain at an 8/10 and Tylenol alone only brings this down to 7/ 10. She states that she was only taking 1 tab in the morning and then 1 tab around supper time. She tried to call her surgeon about this and he directed her to come to ED. She has been on light duty at work as well. Lower Back Pain Score (Numeric/FACES): 8 - Related Data Allergies Allergy/AdvReac Type Severity Reaction Status Date / Time ibuprofen Allergy Rash Verified 04/20/18 10:40 Sulfa (Sulfonamide Allergy Rash Verified 04/20/18 10:40 Antibiotics) sumatriptan [From Imitrex] Allergy Anaphylactic Verified 04/20/18 10:40 Shock tramadol Allergy Rash Verified 04/20/18 10:40 Home Meds: Home Meds Omeprazole Magnesium [Prilosec Otc] 20 mg PO DAILY 12/01/17 [History] Levothyroxine [Synthroid] 50 mcg PO ACBREAKFAST tablet 12/21/17 [Rx] Venlafaxine [Effexor] 150 mg PO DAILY 01/28/18 [History] hydrOXYzine HCl [hydrOXYzine] 50 mg PO BID 01/28/18 [History] Gabapentin [Neurontin] 300 mg PO DAILY 02/16/18 [History] traZODone HCl [Trazodone HCl] 200 mg PO BEDTIME 02/16/18 [History] Orphenadrine [Norflex] 100 mg PO BID PRN #20 tab 04/20/18 [Rx] predniSONE [Prednisone] 10 mg PO ACBREAKFAST #1 tab.ds.pk 04/20/18 [Rx] Hydrocodone/Acetaminophen [[place] 10-325 Tablet] 1 each PO Q6H PRN #12 tablet [Rx] Past Medical History HEENT History: Reports: Allergic Rhinitis, Impaired Vision Other HEENT History: wears corrective lenses, dental infection Cardiovascular History: Reports: High Cholesterol Respiratory History: Reports: Sleep Apnea, Other (See Below) Other Respiratory History: left lung nodule, restrictive lung disease, cough, shortness of breath, pleural thickening, pleuritic chest pain Gastrointestinal History: Reports: Gastritis, GERD, Other (See Below) Other Gastrointestinal History: esophageal stricture, abdominal pain lower, elevated liver enzymes Genitourinary History: Reports: Urinary Incontinence, UTI, Recurrent, Other ( See Below) Other Genitourinary History: implantable device interstim RLQ- removed 08/16/17 ; interstim neurotransmitter placed jan 2018-left buttocks 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: Musculoskeletal History: Reports: Back Pain, Chronic, Neck Pain, Chronic, Osteoarthritis Neurological History: Reports: CVA, Migraines, Seizure, Other (See Below) Other Neuro History: patient reports "nervous tics", nerve pain, dizziness Psychiatric History: Reports: Addiction, Anxiety, Depression, Suicide Attempt, Other (See Below) Other Psychiatric History: drug overdose, personality disorder, alcohol withdrawal Endocrine/Metabolic History: Reports: Hypothyroidism, Obesity/BMI 30+ Other Endocrine/Metabolic History: reports hypothyroidism 15 years ago that corrected itself Hematologic History: Reports: None Immunologic History: Reports: None Oncologic (Cancer) History: Reports: None Dermatologic History: Reports: Other (See Below) Other Dermatologic History: skin lesion - Infectious Disease History Infectious Disease History: Reports: Chicken Pox - Past Surgical History HEENT Surgical History: Reports: None Cardiovascular Surgical History: Reports: None GI Surgical History: Reports: Appendectomy, Cholecystectomy, EGD Female Surgical History: Reports: Hysterectomy, Salpingo-Oophorectomy, Tubal Ligation, Other (See Below) Other Female Surgeries/Procedures: bladder sling 09/2017 Endocrine Surgical History: Reports: None Musculoskeletal Surgical History: Reports: None Oncologic Surgical History: Reports: None Social & Family History - Family History Family Medical History: Noncontributory Cardiac: Reports: Bypass, CAD, Heart Failure - Tobacco Use Smoking Status *Q: Current Every Day Smoker Years of Tobacco use: 12 Packs/Tins Daily: 0 - Caffeine Use Caffeine Use: Reports: None - Recreational Drug Use Recreational Drug Use: No - Living Situation & Occupation Living situation: Reports: , Other (with roomate) Occupation: Unemployed ED ROS GENERAL - Review of Systems Review Of Systems: See Below Constitutional: Reports: No Symptoms HEENT: Reports: No Symptoms Respiratory: Reports: No Symptoms Cardiovascular: Reports: No Symptoms Endocrine: Reports: No Symptoms GI/Abdominal: Reports: No Symptoms : Reports: No Symptoms Musculoskeletal: Reports: Back Pain (low back) Skin: Reports: Wound (surgical incisions in lumbar area, for removal of interstim device.) Neurological: Reports: No Symptoms Psychiatric: Reports: No Symptoms Hematologic/Lymphatic: Reports: No Symptoms Immunologic: Reports: No Symptoms ED EXAM,LOWER BACK PAIN/INJURY - Physical Exam Exam: See Below Exam Limited By: No Limitations General Appearance: Alert, WD/WN, No Apparent Distress Ears: Normal External Exam Nose: Normal Inspection Throat/Mouth: Normal Inspection, Normal Oropharynx Head: Atraumatic, Normocephalic Neck: Normal Inspection Respiratory/Chest: No Respiratory Distress, Lungs Clear, Normal Breath Sounds, No Accessory Muscle Use, Chest Non-Tender Cardiovascular: Normal Peripheral Pulses, Regular Rate, Rhythm, No Murmur GI/Abdominal: Normal Bowel Sounds, Soft, Non-Tender, No Distention, No Mass Back Exam: Normal Inspection (2 well healing surgical incisioins, these were tender to the touch) Extremities: Normal Inspection, Normal Capillary Refill Neurological: Alert, Normal Mood/Affect, Normal Dorsiflexion, Normal Plantar Flexion, Normal Gait, No Motor/Sensory Deficits, Oriented x 3 Psychiatric: Normal Affect, Normal Mood Skin Exam: Warm, Dry, Intact, Normal Color, No Rash Course - Vital Signs Last Recorded V/S: Last Vital Signs Temp 97.6 F 05/19/18 15:11 Pulse 84 05/19/18 15:11 Resp 18 05/19/18 15:11 BP 126/105 H 05/19/18 15:11 Pulse Ox 98 05/19/18 15:11 - Re-Assessments/Exams Free Text/Narrative Re-Assessment/Exam: 05/19/18 15:25 Pt presents to the ED for the evaluation of low back pain. Her incisions look to be healing well, and she is having some increased pain in her low back around the surgical sites. I will provide her with 12 tabs of [place] 10/325 for the weekend, and recommended that she see her primary care doctor for follow up care. She was okay with this plan. Departure - Departure Time of Disposition: 15:30 Disposition: Home, Self-Care 01 Condition: Fair Clinical Impression: Low back pain Qualifiers: Chronicity: chronic Back pain laterality: left Sciatica presence: with sciatica Sciatica laterality: sciatica laterality unspecified Qualified Code(s) : M54.40 - Lumbago with sciatica, unspecified side - Discharge Information *PRESCRIPTION DRUG MONITORING PROGRAM REVIEWED*: Yes *COPY OF PRESCRIPTION DRUG MONITORING REPORT IN PATIENT LEONEL: No Prescriptions: Hydrocodone/Acetaminophen [[place] 10-325 Tablet] 1 each PO Q6H PRN #12 tablet PRN Reason: Pain Instructions: Back Pain, Adult, [id number] Referrals: Demian Limon PA [Primary Care Provider] - Forms: ED Department Discharge Additional Instructions: You have been evaluated in the ED for your surgical incisions/back pain. Your incisions appear to be healing well. You have been provided with a script for 12 tabs of [place] 10/325, please take these as directed. Follow up with your surgeon as appropriate. Please return to the ED if your symptoms change or worsen.
== END 2018-05-19 15:35 | disposition home or self-care (01) ==
LOC: JD.ED 15:03
DX: M54.40 Lumbago with sciatica, unspecified side (principal); F17.210 Nicotine dependence, cigarettes, uncomplicated; E78.00 Pure hypercholesterolemia, unspecified; K21.9 Gastro-esophageal reflux disease without esophagitis; F41.9 Anxiety disorder, unspecified; F32.9 Major depressive disorder, single episode, unspecified; E03.9 Hypothyroidism, unspecified; Z79.899 Other long term (current) drug therapy; Z88.6 Allergy status to analgesic agent; Z88.2 Allergy status to sulfonamides
CPT/HCPCS: 99283

== ENCOUNTER 2018-05-25 18:35 | Emergency (ER) | payer MEDICAID ==
[2018-05-25 19:13] VITALS: BP 156/105
== END 2018-05-25 19:24 | disposition left against medical advice (07) ==
LOC: JD.ED 18:35
DX: Z53.21 Procedure and treatment not carried out due to patient leaving prior to being seen by health care provider (principal)

== ENCOUNTER 2018-05-28 10:33 | Emergency (ER) | payer MEDICAID ==
[2018-05-28] MEDS ORDERED: Albuterol 0.083% 2.5 MG/3 ML Neb Soln NEB ONE (11:26)
[2018-05-28] MEDS ORDERED: Acetaminophen/HYDROcodone 325-5 MG Tab PO ONE (11:26)
[2018-05-28 12:22] VITALS: BP 128/94
[2018-05-28] MEDS ORDERED: Albuterol/Ipratropium 3.0-0.5 MG/3 ML Neb Soln NEB ONE (13:35)
[2018-05-28] MEDS ORDERED: LORazepam 1 MG Tab PO ONE (13:35)
--- NOTE | 2018-05-28 14:01 | EDM.PDOC ---
ED HPI GENERAL MEDICAL PROBLEM - General Chief Complaint: Respiratory Problem Stated Complaint: [facility] Time Seen by Provider: 05/28/18 11:19 Source of Information: Reports: Patient, RN Notes Reviewed - History of Present Illness INITIAL COMMENTS - FREE TEXT/NARRATIVE: Pt comes in short of breath, states she has "restrictive lung disease" Also concerned about a painful lesion post. L thigh. She is come in by ambulance and does appear somewhat short of breath at time of initial evaluation. She states she has had very occasional cough. No fever or chills. She has very mild discomfort with deep breathing. No abdominal pain. No nausea vomiting or diaphoresis. She does not have pain going to her shoulder, arm or back. Left Buttock Pain Score (Numeric/FACES): 10 - Related Data Allergies Allergy/AdvReac Type Severity Reaction Status Date / Time ibuprofen Allergy Rash Verified 05/28/18 10:41 Sulfa (Sulfonamide Allergy Rash Verified 05/28/18 10:41 Antibiotics) sumatriptan [From Imitrex] Allergy Anaphylactic Verified 05/28/18 10:41 Shock tramadol Allergy Rash Verified 05/28/18 10:41 Home Meds: Home Meds Omeprazole Magnesium [Prilosec Otc] 20 mg PO DAILY 12/01/17 [History] Levothyroxine [Synthroid] 50 mcg PO ACBREAKFAST tablet 12/21/17 [Rx] Venlafaxine [Effexor] 150 mg PO DAILY 01/28/18 [History] hydrOXYzine HCl [hydrOXYzine] 50 mg PO BID 01/28/18 [History] Gabapentin [Neurontin] 300 mg PO DAILY 02/16/18 [History] traZODone HCl [Trazodone HCl] 200 mg PO BEDTIME 02/16/18 [History] Acetaminophen/HYDROcodone [[place] 325-5 MG] 1 tab PO Q6H PRN #7 tablet 05/28/18 [ Rx] Doxycycline [Vibramycin] 100 mg PO BID #14 tab 05/28/18 [Rx] Past Medical History HEENT History: Reports: Allergic Rhinitis, Impaired Vision Other HEENT History: wears corrective lenses, dental infection Cardiovascular History: Reports: High Cholesterol Respiratory History: Reports: Sleep Apnea, Other (See Below) Other Respiratory History: left lung nodule, restrictive lung disease, cough, shortness of breath, pleural thickening, pleuritic chest pain Gastrointestinal History: Reports: Gastritis, GERD, Other (See Below) Other Gastrointestinal History: esophageal stricture, abdominal pain lower, elevated liver enzymes Genitourinary History: Reports: Urinary Incontinence, UTI, Recurrent, Other ( See Below) Other Genitourinary History: implantable device interstim RLQ- removed 08/16/17 ; interstim neurotransmitter placed jan 2018-left buttocks 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: Musculoskeletal History: Reports: Back Pain, Chronic, Neck Pain, Chronic, Osteoarthritis Neurological History: Reports: CVA, Migraines, Seizure, Other (See Below) Other Neuro History: patient reports "nervous tics", nerve pain, dizziness Psychiatric History: Reports: Addiction, Anxiety, Depression, Suicide Attempt, Other (See Below) Other Psychiatric History: drug overdose, personality disorder, alcohol withdrawal Endocrine/Metabolic History: Reports: Hypothyroidism, Obesity/BMI 30+ Other Endocrine/Metabolic History: reports hypothyroidism 15 years ago that corrected itself Hematologic History: Reports: None Immunologic History: Reports: None Oncologic (Cancer) History: Reports: None Dermatologic History: Reports: Other (See Below) Other Dermatologic History: skin lesion - Infectious Disease History Infectious Disease History: Reports: Chicken Pox - Past Surgical History HEENT Surgical History: Reports: None Cardiovascular Surgical History: Reports: None GI Surgical History: Reports: Appendectomy, Cholecystectomy, EGD Female Surgical History: Reports: Hysterectomy, Salpingo-Oophorectomy, Tubal Ligation, Other (See Below) Other Female Surgeries/Procedures: bladder sling 09/2017 Endocrine Surgical History: Reports: None Musculoskeletal Surgical History: Reports: None Oncologic Surgical History: Reports: None Social & Family History - Family History Family Medical History: Noncontributory Cardiac: Reports: Bypass, CAD, Heart Failure - Tobacco Use Smoking Status *Q: Unknown Ever Smoked - Caffeine Use Caffeine Use: Reports: None - Living Situation & Occupation Living situation: Reports: , Other (with roomate) Occupation: Unemployed ED ROS GENERAL - Review of Systems Review Of Systems: See Below Constitutional: Denies: Fever, Chills, Diaphoresis HEENT: Denies: Sinus Problem, Throat Pain Respiratory: Reports: Shortness of Breath, Pleuritic Chest Pain, Cough Cardiovascular: Reports: Chest Pain (Occasional mild) GI/Abdominal: Denies: Abdominal Pain, Nausea, Vomiting Musculoskeletal: Denies: Neck Pain, Shoulder Pain, Arm Pain Skin: Reports: Lesions (Patient has an inflamed lesion left posterior thigh that she states is "very painful") Neurological: Denies: Trouble Speaking, Weakness ED EXAM, GENERAL - Physical Exam Exam: See Below General Appearance: Alert, Anxious (Mild), Mild Distress Eye Exam: Bilateral Eye: PERRL Nose: Normal Inspection Throat/Mouth: Normal Inspection Head: No: Facial Swelling Neck: Supple Respiratory/Chest: No Respiratory Distress, Lungs Clear, Normal Breath Sounds. No: Rhonchi, Wheezing Cardiovascular: Tachycardia GI/Abdominal: Soft, Non-Tender Extremities: Normal Inspection, Other (small inflamed area folliuclitis L post thigh, not fluctuant, not draining, tender). No: Pedal Edema, Leg Pain Neurological: Alert, Oriented, No Motor/Sensory Deficits Skin Exam: Warm, Dry, Other (She does have an inflamed lesion left posterior thigh with very mild localized erythema, swelling, tenderness. No active drainage, not fluctuant) Course - Vital Signs Last Recorded V/S: Last Vital Signs Temp 98.1 F 05/28/18 10:42 Pulse 90 05/28/18 12:21 Resp 16 05/28/18 12:21 BP 128/94 H 05/28/18 12:21 Pulse Ox 98 05/28/18 13:36 - Orders/Labs/Meds Labs: Laboratory Tests 05/28/18 05/28/18 05/28/18 Range/Units 11:40 11:40 11:40 WBC 6.06 (3.98-10.04) K/mm3 RBC 5.06 (3.98-5.22) M/mm3 Hgb 14.9 (11.2-15.7) gm/L Hct 44.6 (34.1-44.9) % MCV 88.1 (79.4-94.8) fl MCH 29.4 (25.6-32.2) pg MCHC 33.4 (32.2-35.5) g/dl RDW Std Deviation 43.0 (36.4-46.3) fL Plt Count 305 (182-369) K/mm3 MPV 10.1 (9.4-12.3) fl Neut % (Auto) 62.9 (34.0-71.1) % Lymph % (Auto) 26.7 (19.3-51.7) % [place] % (Auto) 6.4 (4.7-12.5) % Eos % (Auto) 3.3 (0.7-5.8) Baso % (Auto) 0.5 (0.1-1.2) % Neut # (Auto) 3.81 (1.56-6.13) K/mm3 Lymph # (Auto) 1.62 (1.18-3.74) K/mm3 [place] # (Auto) 0.39 H (0.24-0.36) K/mm3 Eos # (Auto) 0.20 (0.04-0.36) K/mm3 Baso # (Auto) 0.03 (0.01-0.08) K/mm3 D-Dimer, Quantitative < 0.19 L (0.19-0.50) mg/L Sodium 140 (136-145) mEq/L Potassium 3.7 (3.5-5.1) mEq/L Chloride 105 (98-107) mEq/L Carbon Dioxide 21 (21-32) mEq/L Anion Gap 17.7 H (5-15) BUN 11 (7-18) mg/dL Creatinine 0.9 (0.55-1.02) mg/dL Est Cr Clr Drug Dosing 65.05 mL/min Estimated GFR (MDRD) > 60 (>60) mL/min BUN/Creatinine Ratio 12.2 L (14-18) Glucose 113 H (74-106) mg/dL Calcium 8.9 (8.5-10.1) mg/dL Total Bilirubin 0.2 (0.2-1.0) mg/dL AST 15 (15-37) U/L ALT 27 (14-59) U/L Alkaline Phosphatase 103 (46-116) U/L Total Protein 7.7 (6.4-8.2) g/dl Albumin 3.8 (3.4-5.0) g/dl Globulin 3.9 gm/dL Albumin/Globulin Ratio 1.0 (1-2) Meds: Medications Discontinued Medications Generic Name Dose Route Start Last Admin Trade Name Freq PRN Reason Stop Dose Admin Hydrocodone Bitart/Acetaminophen 1 tab 05/28/18 11:26 05/28/18 11:32 [place] 325-5 Mg PO 05/28/18 11:27 1 tab ONETIME ONE Administration Albuterol 2.5 mg 05/28/18 11:26 05/28/18 11:35 Proventil Neb Soln NEB 05/28/18 11:27 2.5 mg ONETIME ONE Administration Albuterol/Ipratropium 3 ml 05/28/18 13:35 05/28/18 13:59 Duoneb 3.0-0.5 Mg/3 Ml NEB 05/28/18 13:36 3 ml ONETIME ONE Administration Lorazepam 1 mg 05/28/18 13:35 05/28/18 13:40 Ativan PO 05/28/18 13:36 1 mg ONETIME ONE Administration - Re-Assessments/Exams Free Text/Narrative Re-Assessment/Exam: 05/29/18 20:04 White blood count, other labs normal, chest x-ray normal, d-dimer normal. No apparent acute pulmonary problem. 7 early folliculitis developing left posterior thigh which will be treated. discharge instructions as documented. Departure - Departure Time of Disposition: 14:00 Disposition: Home, Self-Care 01 Condition: Fair Clinical Impression: Folliculitis Dyspnea Qualifiers: Dyspnea type: dyspnea on exertion Qualified Code(s): R06.09 - Other forms of dyspnea - Discharge Information Prescriptions: Acetaminophen/HYDROcodone [[place] 325-5 MG] 1 tab PO Q6H PRN #7 tablet PRN Reason: Pain Doxycycline [Vibramycin] 100 mg PO BID #14 tab Instructions: Shortness of Breath, Adult, [id number], Folliculitis Referrals: Demian Limon PA [Primary Care Provider] - Forms: ED Department Discharge Additional Instructions: warm compresses to area of infection L posterior thigh 3 to 4 times daily, doxycycline 100 mg twice daily until gone. Tylenol for mild to moderate discomfort or hydrocodone if needed for severe pain, Follow up with your regular medical provider in about 4 to 5 days for recheck, call for appt.
--- NOTE | 2018-05-28 15:18 | CR ---
Chest: Portable view of the chest was obtained. Comparison: Prior chest x-ray of 02/27/18. Heart size is normal. Tortuous thoracic aorta is seen. Lungs are clear. Bony structures are unremarkable. Impression: 1. Nothing acute is seen on portable chest x-ray. Diagnostic code #1
== END 2018-05-28 14:19 | disposition home or self-care (01) ==
LOC: JD.ED 10:33 → SUPCPDRO 10:33 → JD.ED 14:19
DX: R06.09 Other forms of dyspnea (principal); L73.9 Follicular disorder, unspecified; E78.00 Pure hypercholesterolemia, unspecified; Z88.8 Allergy status to other drugs, medicaments and biological substances; Z88.2 Allergy status to sulfonamides; Z79.899 Other long term (current) drug therapy
CPT/HCPCS: 36415; 71045; 80053; 85025; 85379; 94640; 99285; A9270; 99284; J7620-GY

== ENCOUNTER 2018-06-08 12:27 | Emergency (ER) | payer MEDICAID ==
[2018-06-08 12:52] VITALS: BP 148/98
--- NOTE | 2018-06-08 14:05 | EDM.PDOC ---
<Mary Anne Roque - Last Filed: 06/08/18 14:28> ED HPI GENERAL MEDICAL PROBLEM - General Chief Complaint: ENT Problem Stated Complaint: JAW PAIN Time Seen by Provider: 06/08/18 12:55 Source of Information: Reports: Patient History Limitations: Reports: No Limitations - History of Present Illness Onset Date: 06/01/18 Onset Time: 09:00 Duration: Week(s): Location: Reports: Other (Right lower dental pain) Quality: Reports: Ache Severity: Mild Improves with: Reports: Medication (Reports relieved with [place]) Worsens with: Reports: Other (Ice increases pain) Associated Symptoms: Reports: No Other Symptoms. Denies: Fever/Chills, Headaches, Nausea/Vomiting Right Lower Jaw Pain Score (Numeric/FACES): 10 - Related Data Allergies Allergy/AdvReac Type Severity Reaction Status Date / Time ibuprofen Allergy Rash Verified 06/08/18 12:52 Sulfa (Sulfonamide Allergy Rash Verified 06/08/18 12:52 Antibiotics) sumatriptan [From Imitrex] Allergy Anaphylactic Verified 06/08/18 12:52 Shock tramadol Allergy Rash Verified 06/08/18 12:52 Home Meds: Home Meds Omeprazole Magnesium [Prilosec Otc] 20 mg PO DAILY 12/01/17 [History] Levothyroxine [Synthroid] 50 mcg PO ACBREAKFAST tablet 12/21/17 [Rx] Venlafaxine [Effexor] 150 mg PO DAILY 01/28/18 [History] hydrOXYzine HCl [hydrOXYzine] 50 mg PO BID 01/28/18 [History] Gabapentin [Neurontin] 300 mg PO DAILY 02/16/18 [History] traZODone HCl [Trazodone HCl] 200 mg PO BEDTIME 02/16/18 [History] Acetaminophen/HYDROcodone [[place] 325-5 MG] 1 tab PO Q6H PRN #7 tablet 05/28/18 [ Rx] Doxycycline [Vibramycin] 100 mg PO BID #14 tab 05/28/18 [Rx] Penicillin V Potassium 500 mg PO Q8HR #30 tab 06/08/18 [Rx] Past Medical History HEENT History: Reports: Allergic Rhinitis, Impaired Vision Other HEENT History: wears corrective lenses, dental infection Cardiovascular History: Reports: High Cholesterol Respiratory History: Reports: Sleep Apnea, Other (See Below) Other Respiratory History: left lung nodule, restrictive lung disease, cough, shortness of breath, pleural thickening, pleuritic chest pain Gastrointestinal History: Reports: Gastritis, GERD, Other (See Below) Other Gastrointestinal History: esophageal stricture, abdominal pain lower, elevated liver enzymes Genitourinary History: Reports: Urinary Incontinence, UTI, Recurrent, Other ( See Below) Other Genitourinary History: implantable device interstim RLQ- removed 08/16/17 ; interstim neurotransmitter placed jan 2018-left buttocks 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: Musculoskeletal History: Reports: Back Pain, Chronic, Neck Pain, Chronic, Osteoarthritis Neurological History: Reports: CVA, Migraines, Seizure, Other (See Below) Other Neuro History: patient reports "nervous tics", nerve pain, dizziness Psychiatric History: Reports: Addiction, Anxiety, Depression, Suicide Attempt, Other (See Below) Other Psychiatric History: drug overdose, personality disorder, alcohol withdrawal Endocrine/Metabolic History: Reports: Hypothyroidism, Obesity/BMI 30+ Other Endocrine/Metabolic History: reports hypothyroidism 15 years ago that corrected itself Hematologic History: Reports: None Immunologic History: Reports: None Oncologic (Cancer) History: Reports: None Dermatologic History: Reports: Other (See Below) Other Dermatologic History: skin lesion - Infectious Disease History Infectious Disease History: Reports: Chicken Pox - Past Surgical History HEENT Surgical History: Reports: None Cardiovascular Surgical History: Reports: None Respiratory Surgical History: Reports: None GI Surgical History: Reports: Appendectomy, Cholecystectomy, EGD Female Surgical History: Reports: Hysterectomy, Salpingo-Oophorectomy, Tubal Ligation, Other (See Below) Other Female Surgeries/Procedures: bladder sling 09/2017 Endocrine Surgical History: Reports: None Musculoskeletal Surgical History: Reports: None Oncologic Surgical History: Reports: None Social & Family History - Family History Family Medical History: Noncontributory Cardiac: Reports: Bypass, CAD, Heart Failure - Caffeine Use Caffeine Use: Reports: None - Living Situation & Occupation Living situation: Reports: , Other (with roomate) Occupation: Unemployed ED ROS ENT - Review of Systems Review Of Systems: ROS reveals no pertinent complaints other than HPI. HEENT: Reports: Dental Pain Respiratory: Denies: Shortness of Breath Cardiovascular: Denies: Chest Pain Psychiatric: Reports: No Symptoms ED EXAM, ENT - Physical Exam Exam: See Below Exam Limited By: No Limitations General Appearance: Alert, WD/WN, No Apparent Distress Mouth/Throat: Normal Lips, Normal Oropharynx, Dental Pain, Other (Tooth #27 and 28 are loose with palpation there is some erythema noted at the gumline.) Course - Vital Signs Last Recorded V/S: Last Vital Signs Temp 98.0 F 06/08/18 12:50 Pulse 80 06/08/18 12:50 Resp 18 06/08/18 12:50 BP 148/98 H 06/08/18 12:50 Pulse Ox 100 06/08/18 12:50 - Re-Assessments/Exams Free Text/Narrative Re-Assessment/Exam: 06/08/18 1345 After reviewing the [facility] I do not feel that she would benefit from a narcotics that she had 64 knuckles since March 29, 2018. I will discharge home with Pen-Vee K for possible gingivitis. I did instruct the patient follow up with her dentist as scheduled. The patient returned to return for any new or acutely worsening symptoms. Departure - Departure Time of Disposition: 13:56 Disposition: Home, Self-Care 01 Condition: Good Clinical Impression: Pain, dental - Discharge Information *PRESCRIPTION DRUG MONITORING PROGRAM REVIEWED*: Yes *COPY OF PRESCRIPTION DRUG MONITORING REPORT IN PATIENT LEONEL: Yes Prescriptions: Penicillin V Potassium 500 mg PO Q8HR #30 tab Instructions: Dental Abscess Referrals: David Wilson PA-C [Primary Care Provider] - Forms: ED Department Discharge Additional Instructions: Given diagnosed with gingivitis. You have been prescribed Pen-Vee K take this until they are completed. Follow-up with her dentist as scheduled. Return to emergency room for any acute worsening symptoms. <Reggie Melo - Last Filed: 06/08/18 19:50> Course - Re-Assessments/Exams Free Text/Narrative Re-Assessment/Exam: 06/08/18 19:49 Hx and exam was done by Bro Rosenbaum. I also discussed sx and findings with patient. I agree with hx and exam as documented, treatment plan as documented.
== END 2018-06-08 14:34 | disposition home or self-care (01) ==
LOC: JD.ED 12:27
DX: K08.89 Other specified disorders of teeth and supporting structures (principal); E78.00 Pure hypercholesterolemia, unspecified; K21.9 Gastro-esophageal reflux disease without esophagitis; F41.9 Anxiety disorder, unspecified; F32.9 Major depressive disorder, single episode, unspecified; E03.9 Hypothyroidism, unspecified; Z79.899 Other long term (current) drug therapy; Z88.6 Allergy status to analgesic agent; Z88.2 Allergy status to sulfonamides; Z88.5 Allergy status to narcotic agent
CPT/HCPCS: 99282; 99283

== ENCOUNTER 2018-06-19 14:41 | Emergency (ER) | payer MEDICAID ==
[2018-06-19] MEDS ORDERED: Sodium Chloride 0.9% 1,000 ML IV STA (15:22)
[2018-06-19] MEDS ORDERED: Sodium Chloride 0.9% 10 ML Syringe FLUSH PRN (15:22)
[2018-06-19] MEDS ORDERED: Ondansetron 4 MG/2 ML SDV IVPUSH ONE (15:22)
[2018-06-19] MEDS ORDERED: diphenhydrAMINE 50 MG/ML SDV IVPUSH ONE (15:58)
[2018-06-19] MEDS ORDERED: Acetaminophen 325 MG Tab PO ONE (16:06)
--- NOTE | 2018-06-19 16:49 | EDM.PDOC ---
ED HPI GENERAL MEDICAL PROBLEM - General Chief Complaint: Gastrointestinal Problem Stated Complaint: [facility] Time Seen by Provider: 06/19/18 14:50 Source of Information: Reports: Patient, EMS History Limitations: Reports: No Limitations - History of Present Illness INITIAL COMMENTS - FREE TEXT/NARRATIVE: The patient presents by [facility] for abdominal pain, nausea, and vomiting. She says this started early this morning and she has vomited multiple times. She has no diarrhea. She did not eat any bad food and she has not been around anyone who is sick. She has no chest pain or shortness of breath. She has no fever or chills. Onset: Gradual Duration: Hour(s): Location: Reports: Abdomen Quality: Reports: Ache Severity: Moderate Improves with: Reports: None Worsens with: Reports: None Associated Symptoms: Reports: Nausea/Vomiting. Denies: Chest Pain, Cough, Fever /Chills, Headaches, Shortness of Breath Epigastric Pain Score (Numeric/FACES): 5 - Related Data Allergies Allergy/AdvReac Type Severity Reaction Status Date / Time diphenhydramine Allergy Anxiety Verified 06/19/18 16:05 [From Benadryl] ibuprofen Allergy Rash Verified 06/19/18 14:49 Sulfa (Sulfonamide Allergy Rash Verified 06/19/18 14:49 Antibiotics) sumatriptan [From Imitrex] Allergy Anaphylactic Verified 06/19/18 14:49 Shock tramadol Allergy Rash Verified 06/19/18 14:49 Home Meds: Home Meds Omeprazole Magnesium [Prilosec Otc] 20 mg PO DAILY 12/01/17 [History] Levothyroxine [Synthroid] 50 mcg PO ACBREAKFAST tablet 12/21/17 [Rx] Venlafaxine [Effexor] 150 mg PO DAILY 01/28/18 [History] hydrOXYzine HCl [hydrOXYzine] 50 mg PO BID 01/28/18 [History] Gabapentin [Neurontin] 300 mg PO DAILY 02/16/18 [History] traZODone HCl [Trazodone HCl] 200 mg PO BEDTIME 02/16/18 [History] Acetaminophen/HYDROcodone [Brandon 325-5 MG] 1 tab PO Q6H PRN #7 tablet 05/28/18 [ Rx] Doxycycline [Vibramycin] 100 mg PO BID #14 tab 05/28/18 [Rx] Penicillin V Potassium 500 mg PO Q8HR #30 tab 06/08/18 [Rx] Past Medical History HEENT History: Reports: Allergic Rhinitis, Impaired Vision Other HEENT History: wears corrective lenses, dental infection Cardiovascular History: Reports: High Cholesterol Respiratory History: Reports: Sleep Apnea, Other (See Below) Other Respiratory History: left lung nodule, restrictive lung disease, cough, shortness of breath, pleural thickening, pleuritic chest pain Gastrointestinal History: Reports: Gastritis, GERD, Other (See Below) Other Gastrointestinal History: esophageal stricture, abdominal pain lower, elevated liver enzymes Genitourinary History: Reports: Urinary Incontinence, UTI, Recurrent, Other ( See Below) Other Genitourinary History: implantable device interstim RLQ- removed 08/16/17 ; interstim neurotransmitter placed jan 2018-left buttocks [employer] History: Reports: Musculoskeletal History: Reports: Back Pain, Chronic, Neck Pain, Chronic, Osteoarthritis Neurological History: Reports: CVA, Migraines, Seizure, Other (See Below) Other Neuro History: patient reports "nervous tics", nerve pain, dizziness Psychiatric History: Reports: Addiction, Anxiety, Depression, Suicide Attempt, Other (See Below) Other Psychiatric History: drug overdose, personality disorder, alcohol withdrawal Endocrine/Metabolic History: Reports: Hypothyroidism, Obesity/BMI 30+ Other Endocrine/Metabolic History: reports hypothyroidism 15 years ago that corrected itself Hematologic History: Reports: None Immunologic History: Reports: None Oncologic (Cancer) History: Reports: None Dermatologic History: Reports: Other (See Below) Other Dermatologic History: skin lesion - Infectious Disease History Infectious Disease History: Reports: Chicken Pox - Past Surgical History HEENT Surgical History: Reports: None Cardiovascular Surgical History: Reports: None Respiratory Surgical History: Reports: Lung Biopsies GI Surgical History: Reports: Appendectomy, Cholecystectomy, EGD Female Surgical History: Reports: Hysterectomy, Salpingo-Oophorectomy, Tubal Ligation, Other (See Below) Other Female Surgeries/Procedures: bladder sling 09/2017 Endocrine Surgical History: Reports: None Musculoskeletal Surgical History: Reports: None Oncologic Surgical History: Reports: None Social & Family History - Family History Family Medical History: Noncontributory Cardiac: Reports: Bypass, CAD, Heart Failure - Tobacco Use Smoking Status *Q: Current Every Day Smoker Years of Tobacco use: 10 Packs/Tins Daily: 0.5 - Caffeine Use Caffeine Use: Reports: None - Recreational Drug Use Recreational Drug Use: No - Living Situation & Occupation Living situation: Reports: , Other (with roomate) Occupation: Unemployed ED ROS GENERAL - Review of Systems Review Of Systems: See Below Constitutional: Reports: No Symptoms HEENT: Reports: No Symptoms Respiratory: Reports: No Symptoms Cardiovascular: Reports: No Symptoms Endocrine: Reports: No Symptoms GI/Abdominal: Reports: Abdominal Pain, Nausea, Vomiting. Denies: Diarrhea : Reports: No Symptoms Musculoskeletal: Reports: No Symptoms ED EXAM, GI/ABD - Physical Exam Exam: See Below Exam Limited By: No Limitations General Appearance: Alert, No Apparent Distress Ears: Normal External Exam Nose: Normal Inspection Head: Atraumatic, Normocephalic Neck: Normal Inspection Respiratory/Chest: No Respiratory Distress, Lungs Clear, Normal Breath Sounds Cardiovascular: Regular Rate, Rhythm, No Edema, No Murmur GI/Abdominal Exam: Soft, No Organomegaly, No Mass, Tender (Mild generalized tenderness) Course - Vital Signs Last Recorded V/S: Last Vital Signs Temp 98.3 F 06/19/18 14:46 Pulse 88 06/19/18 14:46 Resp 16 06/19/18 14:46 BP 164/110 H 06/19/18 14:46 Pulse Ox 98 06/19/18 14:46 - Orders/Labs/Meds Orders: Active Orders 24 hr Category Date Time Status Peripheral IV Care [RC] . DIRECTED Care 06/19/18 15:23 Active COMPREHENSIVE METABOLIC PN,CMP [CHEM] Stat Lab 06/19/18 16:35 Received DRUG SCREEN, URINE [URCHEM] Stat Lab 06/19/18 15:22 Ordered LIPASE [CHEM] Stat Lab 06/19/18 16:35 Received UA W/MICROSCOPIC [URIN] Stat Lab 06/19/18 15:22 Ordered Sodium Chloride 0.9% [Saline Flush] Med 06/19/18 15:22 Active 10 ml FLUSH ASDIRECTED PRN ED Antiemetic Medication Reflex [OM.PC] Stat Oth 06/19/18 15:23 Ordered Peripheral IV Insertion Adult [OM.PC] Stat Oth 06/19/18 15:22 Ordered Medication Orders Sodium Chloride (Saline Flush) 10 ml FLUSH ASDIRECTED PRN PRN Reason: Keep Vein Open Last Admin: 06/19/18 15:47 Dose: 10 ml Labs: Laboratory Tests 06/19/18 Range/Units 16:25 WBC 11.57 H (3.98-10.04) K/mm3 RBC 5.09 (3.98-5.22) M/mm3 Hgb 15.2 (11.2-15.7) gm/L Hct 44.5 (34.1-44.9) % MCV 87.4 (79.4-94.8) fl MCH 29.9 (25.6-32.2) pg MCHC 34.2 (32.2-35.5) g/dl RDW Std Deviation 42.3 (36.4-46.3) fL Plt Count 313 (182-369) K/mm3 MPV 10.1 (9.4-12.3) fl Neut % (Auto) 79.2 H (34.0-71.1) % Lymph % (Auto) 12.8 L (19.3-51.7) % Coke % (Auto) 7.2 (4.7-12.5) % Eos % (Auto) 0.3 L (0.7-5.8) Baso % (Auto) 0.3 (0.1-1.2) % Neut # (Auto) 9.17 H (1.56-6.13) K/mm3 Lymph # (Auto) 1.48 (1.18-3.74) K/mm3 Coke # (Auto) 0.83 H (0.24-0.36) K/mm3 Eos # (Auto) 0.04 (0.04-0.36) K/mm3 Baso # (Auto) 0.03 (0.01-0.08) K/mm3 Meds: Medications Generic Name Dose Route Start Last Admin Trade Name Freq PRN Reason Stop Dose Admin Sodium Chloride 10 ml 06/19/18 15:22 06/19/18 15:47 Saline Flush FLUSH 10 ml ASDIRECTED PRN Administration Keep Vein Open Discontinued Medications Generic Name Dose Route Start Last Admin Trade Name Freq PRN Reason Stop Dose Admin Acetaminophen 975 mg 06/19/18 16:06 06/19/18 16:18 Tylenol PO 06/19/18 16:07 975 mg NOW ONE Administration Diphenhydramine HCl 50 mg 06/19/18 15:58 06/19/18 16:18 Benadryl IVPUSH 06/19/18 15:59 Not Given ONETIME ONE Sodium Chloride 1,000 mls @ 1,000 mls/hr 06/19/18 15:22 06/19/18 15:47 Normal Saline IV 06/19/18 16:21 1,000 mls/hr .BOLUS STA Administration Metoclopramide HCl 10 mg 06/19/18 17:05 06/19/18 17:10 Reglan IVPUSH 06/19/18 17:06 10 mg ONETIME ONE Administration Ondansetron HCl 4 mg 06/19/18 15:22 06/19/18 15:47 Zofran IVPUSH 06/19/18 15:23 4 mg ONETIME ONE Administration - Re-Assessments/Exams Free Text/Narrative Re-Assessment/Exam: 06/19/18 16:48 I ordered an IV NS 1L bolus and zofran 4mg IV. Her WBC is elevated at 11.57. Her anion gap is elevated at 16.6. Her glucose is elevated at 115. Her AST is elevated at 38. She still has nausea so I ordered reglan. I gave her some tylenol for her abdominal pain. She feels better. I will discharge her home with soem zofran for the nausea. Departure - Departure Time of Disposition: 17:20 Disposition: Home, Self-Care 01 Condition: Good Clinical Impression: Gastroenteritis - Discharge Information *PRESCRIPTION DRUG MONITORING PROGRAM REVIEWED*: No *COPY OF PRESCRIPTION DRUG MONITORING REPORT IN PATIENT LEONEL: No Referrals: Demian Limon PA [Primary Care Provider] - 1 Week Forms: ED Department Discharge Additional Instructions: Take the zofran every 6 hours as needed for nausea and vomiting. Drink plenty of fluids. Take tylenol for any pain. Please return if you are worse. - My Orders Last 24 Hours: My Active Orders 06/19/18 15:22 DRUG SCREEN, URINE [URCHEM] Stat UA W/MICROSCOPIC [URIN] Stat Sodium Chloride 0.9% [Saline Flush] 10 ml FLUSH ASDIRECTED PRN Peripheral IV Insertion Adult [OM.PC] Stat 06/19/18 15:23 Peripheral IV Care [RC] . DIRECTED ED Antiemetic Medication Reflex [OM.PC] Stat 06/19/18 16:35 COMPREHENSIVE METABOLIC PN,CMP [CHEM] Stat LIPASE [CHEM] Stat - Assessment/Plan Last 24 Hours: My Active Orders 06/19/18 15:22 DRUG SCREEN, URINE [URCHEM] Stat UA W/MICROSCOPIC [URIN] Stat Sodium Chloride 0.9% [Saline Flush] 10 ml FLUSH ASDIRECTED PRN Peripheral IV Insertion Adult [OM.PC] Stat 06/19/18 15:23 Peripheral IV Care [RC] . DIRECTED ED Antiemetic Medication Reflex [OM.PC] Stat 06/19/18 16:35 COMPREHENSIVE METABOLIC PN,CMP [CHEM] Stat LIPASE [CHEM] Stat
[2018-06-19] MEDS ORDERED: Metoclopramide 10 MG/2 ML SDV IVPUSH ONE (17:05)
[2018-06-19 17:39] VITALS: BP 140/98
== END 2018-06-19 17:30 | disposition home or self-care (01) ==
LOC: JD.ED 14:41
DX: K52.9 Noninfective gastroenteritis and colitis, unspecified (principal); E78.00 Pure hypercholesterolemia, unspecified; K21.9 Gastro-esophageal reflux disease without esophagitis; F17.210 Nicotine dependence, cigarettes, uncomplicated; Z88.8 Allergy status to other drugs, medicaments and biological substances; Z88.2 Allergy status to sulfonamides; Z79.899 Other long term (current) drug therapy
CPT/HCPCS: 36415; 80053; 83690; 85025; 96361; 96374; 96375; 99284; A9270; J2405; J2765; J7040

== ENCOUNTER 2018-07-14 14:49 | Emergency (ER) | payer MEDICAID ==
[2018-07-14 15:01] VITALS: BP 122/87
[2018-07-14] MEDS ORDERED: Ondansetron 4 MG Tab.DIS PO ONE (15:18)
--- NOTE | 2018-07-14 15:23 | EDM.PDOC ---
<Florentino Tan - Last Filed: 07/14/18 15:28> ED HPI GENERAL MEDICAL PROBLEM - General Chief Complaint: Genitourinary Problem Stated Complaint: POSS BLADDER INFECTION Time Seen by Provider: 07/14/18 14:59 - History of Present Illness INITIAL COMMENTS - FREE TEXT/NARRATIVE: Bro Rosenbaum is a 52 year old female who presents to the ED with back pain and pain with urination. She states that the pain started 5 days. She then began to take Azo for her urgency and pain. She states that the pain hasn't improved and that she is still feeling a lot of pain/pressure in the suprapubic area along with an increase in frequency and urgency. She states that her back pain is on both sides of her back. She also feels nauseated, but denies any vomiting. She has had a decrease in her appetite but states that her fluids are ok. She states that she has been experiencing some fever and chills. Her last UTI was about 30 years ago. - Related Data Allergies Allergy/AdvReac Type Severity Reaction Status Date / Time diphenhydramine Allergy Anxiety Verified 07/14/18 14:56 [From Benadryl] ibuprofen Allergy Rash Verified 07/14/18 14:56 ketorolac [From Toradol] Allergy Rash Verified 07/14/18 17:18 Sulfa (Sulfonamide Allergy Rash Verified 07/14/18 14:56 Antibiotics) sumatriptan [From Imitrex] Allergy Anaphylactic Verified 07/14/18 14:56 Shock tramadol Allergy Rash Verified 07/14/18 14:56 Home Meds: Home Meds Omeprazole Magnesium [Prilosec Otc] 20 mg PO DAILY 12/01/17 [History] Levothyroxine [Synthroid] 50 mcg PO ACBREAKFAST tablet 12/21/17 [Rx] Venlafaxine [Effexor] 150 mg PO DAILY 01/28/18 [History] hydrOXYzine HCl [hydrOXYzine] 50 mg PO BID 01/28/18 [History] Gabapentin [Neurontin] 300 mg PO DAILY 02/16/18 [History] traZODone HCl [Trazodone HCl] 200 mg PO BEDTIME 02/16/18 [History] cephALEXin [Keflex] 500 mg PO BID 14 Days #28 cap 07/14/18 [Rx] ED ROS GENERAL - Review of Systems Review Of Systems: ROS reveals no pertinent complaints other than HPI. ED EXAM, RENAL/ - Physical Exam Exam: See Below Exam Limited By: No Limitations General Appearance: Alert, WD/WN, No Apparent Distress Eye Exam: Bilateral Eye: Normal Inspection Head: Atraumatic, Normocephalic Neck: Normal Inspection, Supple, Non-Tender, Full Range of Motion Respiratory/Chest: No Respiratory Distress, Lungs Clear, Normal Breath Sounds, No Accessory Muscle Use, Chest Non-Tender Cardiovascular: Normal Peripheral Pulses, Regular Rate, Rhythm, No Edema, No Gallop, No JVD, No Murmur, No Rub Back Exam: Normal Inspection, Full Range of Motion, CVA Tenderness (L), CVA Tenderness (R) Extremities: Normal Inspection, Normal Range of Motion Neurological: Alert, Oriented, Normal Cognition, Normal Gait, No Motor/Sensory Deficits Psychiatric: Normal Affect, Normal Mood Skin Exam: Warm, Dry, Intact, Normal Color, No Rash Course - Vital Signs Last Recorded V/S: Last Vital Signs Temp 98.2 F 07/14/18 14:56 Pulse 90 07/14/18 14:56 Resp 16 07/14/18 14:56 BP 122/87 07/14/18 14:56 Pulse Ox 100 07/14/18 14:56 - Orders/Labs/Meds Orders: Active Orders 24 hr Category Date Time Status CULTURE BLOOD [BC] Stat Lab 07/14/18 16:02 Received CULTURE BLOOD [BC] Stat Lab 07/14/18 16:15 Received CULTURE URINE [RM] Stat Lab 07/14/18 15:48 Ordered Blood Culture x2 Reflex Set [OM.PC] Stat Oth 07/14/18 15:42 Ordered Labs: Laboratory Tests 07/14/18 07/14/18 07/14/18 Range/Units 15:10 16:15 16:15 WBC 5.55 (3.98-10.04) K/mm3 RBC 4.21 (3.98-5.22) M/mm3 Hgb 12.7 D (11.2-15.7) gm/L Hct 39.0 (34.1-44.9) % MCV 92.6 (79.4-94.8) fl MCH 30.2 (25.6-32.2) pg MCHC 32.6 (32.2-35.5) g/dl RDW Std Deviation 44.3 (36.4-46.3) fL Plt Count 292 (182-369) K/mm3 MPV 9.8 (9.4-12.3) fl Neut % (Auto) 58.0 (34.0-71.1) % Lymph % (Auto) 27.2 (19.3-51.7) % [place] % (Auto) 11.2 (4.7-12.5) % Eos % (Auto) 3.2 (0.7-5.8) Baso % (Auto) 0.2 (0.1-1.2) % Neut # (Auto) 3.22 (1.56-6.13) K/mm3 Lymph # (Auto) 1.51 (1.18-3.74) K/mm3 [place] # (Auto) 0.62 H (0.24-0.36) K/mm3 Eos # (Auto) 0.18 (0.04-0.36) K/mm3 Baso # (Auto) 0.01 (0.01-0.08) K/mm3 Sodium 140 (136-145) mEq/L Potassium 3.7 (3.5-5.1) mEq/L Chloride 104 (98-107) mEq/L Carbon Dioxide 28 (21-32) mEq/L Anion Gap 11.7 (5-15) BUN 7 (7-18) mg/dL Creatinine 0.8 (0.55-1.02) mg/dL Est Cr Clr Drug Dosing 73.18 mL/min Estimated GFR (MDRD) > 60 (>60) mL/min BUN/Creatinine Ratio 8.8 L (14-18) Glucose 104 (74-106) mg/dL Lactic Acid (0.4-2.0) mmol/L Calcium 9.0 (8.5-10.1) mg/dL Total Bilirubin 0.2 (0.2-1.0) mg/dL AST 103 H (15-37) U/L ALT 80 H (14-59) U/L Alkaline Phosphatase 97 (46-116) U/L C-Reactive Protein 1.2 H* (<1.0) mg/dL Total Protein 6.6 (6.4-8.2) g/dl Albumin 3.3 L (3.4-5.0) g/dl Globulin 3.3 gm/dL Albumin/Globulin Ratio 1.0 (1-2) Urine Color [place]cdon[place] H (Yellow) Urine Appearance Turbid H (Clear) Urine pH 5.5 (5.0-8.0) Ur Specific [place] 1.020 (1.005-1.030) Urine Protein 3+ H (Negative) Urine Glucose (UA) Trace H (Negative) Urine Ketones 1+ H (Negative) Urine Occult Blood 2+ H (Negative) Urine Nitrite Positive H (Negative) Urine Bilirubin 1+ H (Negative) Urine Urobilinogen 4.0 H (0.2-1.0) Ur Leukocyte Esterase 3+ H (Negative) Urine RBC >100 H (0-5) /hpf Urine WBC Too numerous to cnt H (0-5) /hpf Ur Epithelial Cells 0-5 (0-5) /hpf Urine Bacteria Many H (FEW) /hpf Urine Mucus Not seen (FEW) /hpf // Range/Units 16:15 WBC (3.98-10.04) K/mm3 RBC (3.98-5.22) M/mm3 Hgb (11.2-15.7) gm/L Hct (34.1-44.9) % MCV (79.4-94.8) fl MCH (25.6-32.2) pg MCHC (32.2-35.5) g/dl RDW Std Deviation (36.4-46.3) fL Plt Count (182-369) K/mm3 MPV (9.4-12.3) fl Neut % (Auto) (34.0-71.1) % Lymph % (Auto) (19.3-51.7) % [place] % (Auto) (4.7-12.5) % Eos % (Auto) (0.7-5.8) Baso % (Auto) (0.1-1.2) % Neut # (Auto) (1.56-6.13) K/mm3 Lymph # (Auto) (1.18-3.74) K/mm3 [place] # (Auto) (0.24-0.36) K/mm3 Eos # (Auto) (0.04-0.36) K/mm3 Baso # (Auto) (0.01-0.08) K/mm3 Sodium (136-145) mEq/L Potassium (3.5-5.1) mEq/L Chloride (98-107) mEq/L Carbon Dioxide (21-32) mEq/L Anion Gap (5-15) BUN (7-18) mg/dL Creatinine (0.55-1.02) mg/dL Est Cr Clr Drug Dosing mL/min Estimated GFR (MDRD) (>60) mL/min BUN/Creatinine Ratio (14-18) Glucose (74-106) mg/dL Lactic Acid 1.1 (0.4-2.0) mmol/L Calcium (8.5-10.1) mg/dL Total Bilirubin (0.2-1.0) mg/dL AST (15-37) U/L ALT (14-59) U/L Alkaline Phosphatase (46-116) U/L C-Reactive Protein (<1.0) mg/dL Total Protein (6.4-8.2) g/dl Albumin (3.4-5.0) g/dl Globulin gm/dL Albumin/Globulin Ratio (1-2) Urine Color (Yellow) Urine Appearance (Clear) Urine pH (5.0-8.0) Ur Specific [place] (1.005-1.030) Urine Protein (Negative) Urine Glucose (UA) (Negative) Urine Ketones (Negative) Urine Occult Blood (Negative) Urine Nitrite (Negative) Urine Bilirubin (Negative) Urine Urobilinogen (0.2-1.0) Ur Leukocyte Esterase (Negative) Urine RBC (0-5) /hpf Urine WBC (0-5) /hpf Ur Epithelial Cells (0-5) /hpf Urine Bacteria (FEW) /hpf Urine Mucus (FEW) /hpf Meds: Medications Discontinued Medications Generic Name Dose Route Start Last Admin Trade Name Freq PRN Reason Stop Dose Admin Diatrizoate Meglum/Diatrizoate Sod 90 ml 07/14/18 15:37 07/14/18 17:03 Gastrografin 37% PO 07/14/18 15:38 90 ml ONETIME ONE Administration Sodium Chloride 1,000 mls @ 999 mls/hr 07/14/18 15:43 07/14/18 16:47 Normal Saline IV 07/14/18 16:43 100 mls/hr ONETIME ONE Administration Iopamidol 100 ml 07/14/18 15:37 07/14/18 17:04 Isovue-370 (76%) IV 07/14/18 15:38 100 ml ONETIME ONE Administration Ketorolac Tromethamine 30 mg 07/14/18 17:11 07/14/18 17:24 Toradol IM 07/14/18 17:12 Not Given ONETIME ONE Ondansetron HCl 4 mg 07/14/18 15:18 07/14/18 15:27 Zofran Odt PO 07/14/18 15:19 4 mg ONETIME ONE Administration Departure - Departure Disposition: Home, Self-Care 01 Clinical Impression: Pyelonephritis - Discharge Information Prescriptions: cephALEXin [Keflex] 500 mg PO BID 14 Days #28 cap Instructions: Pyelonephritis, Adult, [id number] Referrals: PCP,None [Primary Care Provider] - Forms: ED Department Discharge Additional Instructions: You were seen in the ED today for urgency and pain with urination as well as back pain for 5 days. At this time, your exam, labs, and CT show that you have pyelonephritis (infection of the kidneys). This likely happened due to waiting 5 days for antibiotic treatment. Will send you a prescription home for Keflex 500mg twice per day for 14 days for treatment. Please take ALL antibiotics, otherwise the infection will get worse. Also recommend continuing to take AZO for relief of urgency and pain symptoms. Recommend over the counter pain relief as well. Try to stay as hydrated. Please follow up with your primary care provider. Please return to ED if new or worsening symptoms. - My Orders Last 24 Hours: My Active Orders 07/14/18 15:42 Blood Culture x2 Reflex Set [OM.PC] Stat 07/14/18 15:48 CULTURE URINE [RM] Stat 07/14/18 16:02 CULTURE BLOOD [BC] Stat 07/14/18 16:15 CULTURE BLOOD [BC] Stat - Assessment/Plan Last 24 Hours: My Active Orders 07/14/18 15:42 Blood Culture x2 Reflex Set [OM.PC] Stat 07/14/18 15:48 CULTURE URINE [RM] Stat 07/14/18 16:02 CULTURE BLOOD [BC] Stat 07/14/18 16:15 CULTURE BLOOD [BC] Stat <Tiffanie Shaffer - Last Filed: 07/14/18 17:48> ED HPI GENERAL MEDICAL PROBLEM - General Source of Information: Reports: Patient History Limitations: Reports: No Limitations - History of Present Illness INITIAL COMMENTS - FREE TEXT/NARRATIVE: I agree with Florentino TEJADA history and assessment. Pt states she urinates after sex, wipes front to back. She doesn't like to drink water, so UTI likely 2/2 retention. Lower Back Pain Score (Numeric/FACES): 8 Past Medical History HEENT History: Reports: Allergic Rhinitis, Impaired Vision Other HEENT History: wears corrective lenses, dental infection Cardiovascular History: Reports: High Cholesterol Respiratory History: Reports: Sleep Apnea, Other (See Below) Other Respiratory History: left lung nodule, restrictive lung disease, cough, shortness of breath, pleural thickening, pleuritic chest pain Gastrointestinal History: Reports: Gastritis, GERD, Other (See Below) Other Gastrointestinal History: esophageal stricture, abdominal pain lower, elevated liver enzymes Genitourinary History: Reports: Urinary Incontinence, UTI, Recurrent, Other ( See Below) Other Genitourinary History: implantable device interstim RLQ- removed 08/16/17 ; interstim neurotransmitter placed jan 2018-left buttocks 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: Musculoskeletal History: Reports: Back Pain, Chronic, Neck Pain, Chronic, Osteoarthritis Neurological History: Reports: CVA, Migraines, Seizure, Other (See Below) Other Neuro History: patient reports "nervous tics", nerve pain, dizziness Psychiatric History: Reports: Addiction, Anxiety, Depression, Suicide Attempt, Other (See Below) Other Psychiatric History: drug overdose, personality disorder, alcohol withdrawal Endocrine/Metabolic History: Reports: Hypothyroidism, Obesity/BMI 30+ Other Endocrine/Metabolic History: reports hypothyroidism 15 years ago that corrected itself Hematologic History: Reports: None Immunologic History: Reports: None Oncologic (Cancer) History: Reports: None Dermatologic History: Reports: Other (See Below) Other Dermatologic History: skin lesion - Infectious Disease History Infectious Disease History: Reports: Chicken Pox - Past Surgical History HEENT Surgical History: Reports: None Cardiovascular Surgical History: Reports: None Respiratory Surgical History: Reports: Lung Biopsies GI Surgical History: Reports: Appendectomy, Cholecystectomy, EGD Female Surgical History: Reports: Hysterectomy, Salpingo-Oophorectomy, Tubal Ligation, Other (See Below) Other Female Surgeries/Procedures: bladder sling 09/2017 Endocrine Surgical History: Reports: None Musculoskeletal Surgical History: Reports: None Oncologic Surgical History: Reports: None Social & Family History - Family History Family Medical History: Noncontributory Cardiac: Reports: Bypass, CAD, Heart Failure - Tobacco Use Smoking Status *Q: Current Every Day Smoker Years of Tobacco use: 10 Packs/Tins Daily: 0.2 - Caffeine Use Caffeine Use: Reports: None - Recreational Drug Use Recreational Drug Use: No - Living Situation & Occupation Living situation: Reports: , Other (with roomate) Occupation: Unemployed Course - Orders/Labs/Meds Labs: Laboratory Tests 07/14/18 07/14/18 07/14/18 Range/Units 15:10 16:15 16:15 WBC 5.55 (3.98-10.04) K/mm3 RBC 4.21 (3.98-5.22) M/mm3 Hgb 12.7 D (11.2-15.7) gm/L Hct 39.0 (34.1-44.9) % MCV 92.6 (79.4-94.8) fl MCH 30.2 (25.6-32.2) pg MCHC 32.6 (32.2-35.5) g/dl RDW Std Deviation 44.3 (36.4-46.3) fL Plt Count 292 (182-369) K/mm3 MPV 9.8 (9.4-12.3) fl Neut % (Auto) 58.0 (34.0-71.1) % Lymph % (Auto) 27.2 (19.3-51.7) % [place] % (Auto) 11.2 (4.7-12.5) % Eos % (Auto) 3.2 (0.7-5.8) Baso % (Auto) 0.2 (0.1-1.2) % Neut # (Auto) 3.22 (1.56-6.13) K/mm3 Lymph # (Auto) 1.51 (1.18-3.74) K/mm3 [place] # (Auto) 0.62 H (0.24-0.36) K/mm3 Eos # (Auto) 0.18 (0.04-0.36) K/mm3 Baso # (Auto) 0.01 (0.01-0.08) K/mm3 Sodium 140 (136-145) mEq/L Potassium 3.7 (3.5-5.1) mEq/L Chloride 104 (98-107) mEq/L Carbon Dioxide 28 (21-32) mEq/L Anion Gap 11.7 (5-15) BUN 7 (7-18) mg/dL Creatinine 0.8 (0.55-1.02) mg/dL Est Cr Clr Drug Dosing 73.18 mL/min Estimated GFR (MDRD) > 60 (>60) mL/min BUN/Creatinine Ratio 8.8 L (14-18) Glucose 104 (74-106) mg/dL Lactic Acid (0.4-2.0) mmol/L Calcium 9.0 (8.5-10.1) mg/dL Total Bilirubin 0.2 (0.2-1.0) mg/dL AST 103 H (15-37) U/L ALT 80 H (14-59) U/L Alkaline Phosphatase 97 (46-116) U/L C-Reactive Protein 1.2 H* (<1.0) mg/dL Total Protein 6.6 (6.4-8.2) g/dl Albumin 3.3 L (3.4-5.0) g/dl Globulin 3.3 gm/dL Albumin/Globulin Ratio 1.0 (1-2) Urine Color [place] H (Yellow) Urine Appearance Turbid H (Clear) Urine pH 5.5 (5.0-8.0) Ur Specific [place] 1.020 (1.005-1.030) Urine Protein 3+ H (Negative) Urine Glucose (UA) Trace H (Negative) Urine Ketones 1+ H (Negative) Urine Occult Blood 2+ H (Negative) Urine Nitrite Positive H (Negative) Urine Bilirubin 1+ H (Negative) Urine Urobilinogen 4.0 H (0.2-1.0) Ur Leukocyte Esterase 3+ H (Negative) Urine RBC >100 H (0-5) /hpf Urine WBC Too numerous to cnt H (0-5) /hpf Ur Epithelial Cells 0-5 (0-5) /hpf Urine Bacteria Many H (FEW) /hpf Urine Mucus Not seen (FEW) /hpf 07/14/18 Range/Units 16:15 WBC (3.98-10.04) K/mm3 RBC (3.98-5.22) M/mm3 Hgb (11.2-15.7) gm/L Hct (34.1-44.9) % MCV (79.4-94.8) fl MCH (25.6-32.2) pg MCHC (32.2-35.5) g/dl RDW Std Deviation (36.4-46.3) fL Plt Count (182-369) K/mm3 MPV (9.4-12.3) fl Neut % (Auto) (34.0-71.1) % Lymph % (Auto) (19.3-51.7) % [place] % (Auto) (4.7-12.5) % Eos % (Auto) (0.7-5.8) Baso % (Auto) (0.1-1.2) % Neut # (Auto) (1.56-6.13) K/mm3 Lymph # (Auto) (1.18-3.74) K/mm3 [place] # (Auto) (0.24-0.36) K/mm3 Eos # (Auto) (0.04-0.36) K/mm3 Baso # (Auto) (0.01-0.08) K/mm3 Sodium (136-145) mEq/L Potassium (3.5-5.1) mEq/L Chloride (98-107) mEq/L Carbon Dioxide (21-32) mEq/L Anion Gap (5-15) BUN (7-18) mg/dL Creatinine (0.55-1.02) mg/dL Est Cr Clr Drug Dosing mL/min Estimated GFR (MDRD) (>60) mL/min BUN/Creatinine Ratio (14-18) Glucose (74-106) mg/dL Lactic Acid 1.1 (0.4-2.0) mmol/L Calcium (8.5-10.1) mg/dL Total Bilirubin (0.2-1.0) mg/dL AST (15-37) U/L ALT (14-59) U/L Alkaline Phosphatase (46-116) U/L C-Reactive Protein (<1.0) mg/dL Total Protein (6.4-8.2) g/dl Albumin (3.4-5.0) g/dl Globulin gm/dL Albumin/Globulin Ratio (1-2) Urine Color (Yellow) Urine Appearance (Clear) Urine pH (5.0-8.0) Ur Specific [place] (1.005-1.030) Urine Protein (Negative) Urine Glucose (UA) (Negative) Urine Ketones (Negative) Urine Occult Blood (Negative) Urine Nitrite (Negative) Urine Bilirubin (Negative) Urine Urobilinogen (0.2-1.0) Ur Leukocyte Esterase (Negative) Urine RBC (0-5) /hpf Urine WBC (0-5) /hpf Ur Epithelial Cells (0-5) /hpf Urine Bacteria (FEW) /hpf Urine Mucus (FEW) /hpf Meds: Medications Discontinued Medications Generic Name Dose Route Start Last Admin Trade Name Freq PRN Reason Stop Dose Admin Diatrizoate Meglum/Diatrizoate Sod 90 ml 07/14/18 15:37 07/14/18 17:03 Gastrografin 37% PO 07/14/18 15:38 90 ml ONETIME ONE Administration Sodium Chloride 1,000 mls @ 999 mls/hr 07/14/18 15:43 07/14/18 16:47 Normal Saline IV 07/14/18 16:43 100 mls/hr ONETIME ONE Administration Iopamidol 100 ml 07/14/18 15:37 07/14/18 17:04 Isovue-370 (76%) IV 07/14/18 15:38 100 ml ONETIME ONE Administration Ketorolac Tromethamine 30 mg 07/14/18 17:11 07/14/18 17:24 Toradol IM 07/14/18 17:12 Not Given ONETIME ONE Ondansetron HCl 4 mg 07/14/18 15:18 07/14/18 15:27 Zofran Odt PO 07/14/18 15:19 4 mg ONETIME ONE Administration - Re-Assessments/Exams Free Text/Narrative Re-Assessment/Exam: 07/14/18 15:20 Ordered CBC, CMP, CRP, UA Ordered Zofran CT abdomen/pelvis with contrast pending 07/14/18 15:47 UA is impressive for UTI: Many bacteria, WBC too numerous to count, 2+ occult blood, positive Nitrate, 3+ leuk esterase Will also order Lactic Acid, Blood Cultures, Urine Culture, 1L Bolus NS 07/14/18 17:16 CBC WNL CMP shows AST 103, ALT 81, Albumin 3.3 CRP 1.2 Lactic Acid 1.1 Difficult to maintain IV so will D/C IVF at this time. 07/14/18 17:35 CT abdomen/pelvis read by Dr. Mccormick: 1. No renal abnormality is seen. 2. Inflammatory change around the bladder as well as mild bladder wall thickening anteriorly. Findings are compatible with cystitis. 3. Slight increased stool within the colon. 4. No additional abnormality is seen on CT study of the abdomen and pelvis. CT confirms UTI, but not necessarily Pyelonephritis. However, due to her clinical symptoms (CVA tenderness bilaterally, F/C) and history of waiting 5 days to treat, this is likely Pyelonephritis. At this point, there seems to be no sign of Sepsis and she is stable enough to go home. Will send home with a prescription for Cipro 500mg BID x7 days for completion of treatment. 07/14/18 17:46 Keflex 500mg BID x14 days prescribed instead, as she cannot take Levaquin or Cipro d/t severe medicine interaction or Bactrim due to Sulfa allergy. Departure - Departure Time of Disposition: 17:37 Condition: Fair - Discharge Information *PRESCRIPTION DRUG MONITORING PROGRAM REVIEWED*: Not Applicable *COPY OF PRESCRIPTION DRUG MONITORING REPORT IN PATIENT LEONEL: Not Applicable
[2018-07-14] MEDS ORDERED: Iopamidol 755 Mg/ML 200 ML Bottle IV ONE (15:37)
[2018-07-14] MEDS ORDERED: Diatrizoate Meglumine/Diatrizoate Sodium 37% 120 ML Bottle PO ONE (15:37)
[2018-07-14] MEDS ORDERED: Sodium Chloride 0.9% 1,000 ML IV ONE (15:43)
[2018-07-14] MEDS ORDERED: Ketorolac 30 MG/ML SDV IM ONE (17:11)
--- NOTE | 2018-07-14 17:33 | CT ---
CT abdomen and pelvis Technique: Multiple axial sections were obtained from above the dome of the diaphragm inferiorly through the pubic symphysis. Intravenous contrast was utilized. Oral contrast is also seen. Delayed images were also obtained through the abdomen and pelvis. Comparison: Prior CT abdomen and pelvis exam of 12/18/17. Findings: Small portion of the visualized lung bases show nothing acute. Liver shows no focal abnormality. Surgical clips are seen from prior cholecystectomy. Spleen appears normal in size. Pancreas is within normal limits. Right and left adrenal glands are unremarkable. Kidneys show symmetric contrast enhancement. No inflammatory change is seen around the kidneys. Aorta shows no aneurysm. No retroperitoneal adenopathy or mesenteric abnormalities are seen. No pelvic mass or adenopathy is seen. Inflammatory change is noted around the bladder as well as mild bladder wall thickening being seen anteriorly compatible with cystitis. No other findings of inflammatory change are seen. Slight increased stool is noted within the colon. Appendix not seen. No bowel dilatation is identified. Delayed images shows contrast excretion into both ureters which show no dilatation. Contrast is noted within the bladder. Bone window settings were reviewed which show no acute osseous abnormality. Impression: 1. No renal abnormality is seen. 2. Inflammatory change around the bladder as well as mild bladder wall thickening anteriorly. Findings are compatible with cystitis. 3. Slight increased stool within the colon. 4. No additional abnormality is seen on CT study of the abdomen and pelvis. Diagnostic code #3
== END 2018-07-14 17:58 | disposition home or self-care (01) ==
LOC: JD.ED 14:49
DX: N12 Tubulo-interstitial nephritis, not specified as acute or chronic (principal); Z88.8 Allergy status to other drugs, medicaments and biological substances; Z88.6 Allergy status to analgesic agent; Z88.2 Allergy status to sulfonamides; Z88.5 Allergy status to narcotic agent; Z79.899 Other long term (current) drug therapy
CPT/HCPCS: 36415; 74177; 80053; 81001; 83605; 85025; 86140; 87040; 87086; 87088; 87186; 96360; 99284; A9270; J7040; Q9963; Q9967

== ENCOUNTER 2018-07-21 15:37 | Emergency (ER) | payer MEDICAID ==
[2018-07-21 16:02] VITALS: BP 144/101
[2018-07-21] MEDS ORDERED: Ondansetron 4 MG Tab.DIS PO ONE (16:07)
[2018-07-21] MEDS ORDERED: Ketorolac 30 MG/ML SDV IM ONE (16:07)
--- NOTE | 2018-07-21 16:14 | EDM.PDOC ---
ED HPI GENERAL MEDICAL PROBLEM - General Chief Complaint: Flank Pain Stated Complaint: KIDNEY INFECTION IS NOT BETTER FROM PREVIOUS VISIT Time Seen by Provider: 07/21/18 15:51 Source of Information: Reports: Patient History Limitations: Reports: No Limitations - History of Present Illness INITIAL COMMENTS - FREE TEXT/NARRATIVE: 52 yo F returns to ED today after previously being seen here for UTI on . She was sent home with Keflex due to not being able to take other antibiotics due to multiple medication and allergies. She states she has taken all of the Keflex as prescribed and has 2 days left. She explains that she started to feel better originally, but then started to get worse again with dysuria. She denies any fever or chills. Her back pain has also been bothering her, but that is a chronic issue and she will be seeing a neurologist tomorrow for that. She also mentions that she has had 3 prior bladder surgeries and botox injections into her bladder. No other concerns at this time. Urine cultures did come back from the last visit and show E. Coli and that it would be susceptible to Levaquin. 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: antibiotic Bilateral Lower Flank Pain Score (Numeric/FACES): 8 - Related Data Allergies Allergy/AdvReac Type Severity Reaction Status Date / Time diphenhydramine Allergy Anxiety Verified 07/21/18 15:50 [From Benadryl] ibuprofen Allergy Rash Verified 07/21/18 15:50 ketorolac [From Toradol] Allergy Rash Verified 07/21/18 15:50 Sulfa (Sulfonamide Allergy Rash Verified 07/21/18 15:50 Antibiotics) sumatriptan [From Imitrex] Allergy Anaphylactic Verified 07/21/18 15:50 Shock tramadol Allergy Rash Verified 07/21/18 15:50 Home Meds: Home Meds Omeprazole Magnesium [Prilosec Otc] 20 mg PO DAILY 12/01/17 [History] Levothyroxine [Synthroid] 50 mcg PO ACBREAKFAST tablet 12/21/17 [Rx] Venlafaxine [Effexor] 150 mg PO DAILY 01/28/18 [History] hydrOXYzine HCl [hydrOXYzine] 50 mg PO BID 01/28/18 [History] Gabapentin [Neurontin] 300 mg PO DAILY 02/16/18 [History] traZODone HCl [Trazodone HCl] 200 mg PO BEDTIME 02/16/18 [History] cephALEXin [Keflex] 500 mg PO BID 14 Days #28 cap 07/14/18 [Rx] Levofloxacin [Levaquin] 500 mg PO DAILY 7 Days #7 tablet 07/21/18 [Rx] Promethazine [Phenergan] 25 mg PO Q6H PRN #4 tab 07/21/18 [Rx] Past Medical History HEENT History: Reports: Allergic Rhinitis, Impaired Vision Other HEENT History: wears corrective lenses, dental infection Cardiovascular History: Reports: High Cholesterol Respiratory History: Reports: Sleep Apnea, Other (See Below) Other Respiratory History: left lung nodule, restrictive lung disease, cough, shortness of breath, pleural thickening, pleuritic chest pain Gastrointestinal History: Reports: Gastritis, GERD, Other (See Below) Other Gastrointestinal History: esophageal stricture, abdominal pain lower, elevated liver enzymes Genitourinary History: Reports: Urinary Incontinence, UTI, Recurrent, Other ( See Below) Other Genitourinary History: implantable device interstim RLQ- removed 08/16/17 ; interstim neurotransmitter placed jan 2018-left buttocks 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: Musculoskeletal History: Reports: Back Pain, Chronic, Neck Pain, Chronic, Osteoarthritis Neurological History: Reports: CVA, Migraines, Seizure, Other (See Below) Other Neuro History: patient reports "nervous tics", nerve pain, dizziness Psychiatric History: Reports: Addiction, Anxiety, Depression, Suicide Attempt, Other (See Below) Other Psychiatric History: drug overdose, personality disorder, alcohol withdrawal Endocrine/Metabolic History: Reports: Hypothyroidism, Obesity/BMI 30+ Other Endocrine/Metabolic History: reports hypothyroidism 15 years ago that corrected itself Hematologic History: Reports: None Immunologic History: Reports: None Oncologic (Cancer) History: Reports: None Dermatologic History: Reports: Other (See Below) Other Dermatologic History: skin lesion - Infectious Disease History Infectious Disease History: Reports: Chicken Pox - Past Surgical History HEENT Surgical History: Reports: None Cardiovascular Surgical History: Reports: None Respiratory Surgical History: Reports: Lung Biopsies GI Surgical History: Reports: Appendectomy, Cholecystectomy, EGD Female Surgical History: Reports: Hysterectomy, Salpingo-Oophorectomy, Tubal Ligation, Other (See Below) Other Female Surgeries/Procedures: bladder sling 09/2017 Endocrine Surgical History: Reports: None Musculoskeletal Surgical History: Reports: None Oncologic Surgical History: Reports: None Social & Family History - Family History Family Medical History: Noncontributory Cardiac: Reports: Bypass, CAD, Heart Failure - Tobacco Use Smoking Status *Q: Current Every Day Smoker Years of Tobacco use: 15 Packs/Tins Daily: 0.5 - Caffeine Use Caffeine Use: Reports: Coffee, Energy Drinks, Soda - Recreational Drug Use Recreational Drug Use: No - Living Situation & Occupation Living situation: Reports: , Other (with roomate) Occupation: Unemployed ED ROS GENERAL - Review of Systems Review Of Systems: ROS reveals no pertinent complaints other than HPI. ED EXAM, RENAL/ - Physical Exam Exam: See Below Exam Limited By: No Limitations General Appearance: Alert, WD/WN, Mild Distress Eye Exam: Bilateral Eye: EOMI, Normal Inspection, PERRL Respiratory/Chest: No Respiratory Distress, Lungs Clear, Normal Breath Sounds, No Accessory Muscle Use, Chest Non-Tender Cardiovascular: Regular Rate, Rhythm Back Exam: Normal Inspection, CVA Tenderness (L), CVA Tenderness (R) Psychiatric: Normal Affect, Normal Mood Skin Exam: Warm, Dry, Intact, Normal Color, No Rash Course - Vital Signs Last Recorded V/S: Last Vital Signs Temp 98.6 F 07/21/18 15:53 Pulse 94 07/21/18 15:53 Resp 18 07/21/18 15:53 BP 144/101 H 07/21/18 15:53 Pulse Ox 97 07/21/18 15:53 - Orders/Labs/Meds Meds: Medications Discontinued Medications Generic Name Dose Route Start Last Admin Trade Name Ashvin PRN Reason Stop Dose Admin Acetaminophen/Codeine Phosphate 1 tab 07/21/18 16:16 07/21/18 16:31 Tylenol With Codeine No.3 300mg/30mg PO 07/21/18 16:17 1 tab ONETIME ONE Administration Ketorolac Tromethamine 30 mg 07/21/18 16:07 07/21/18 16:50 Toradol IM 07/21/18 16:08 Not Given ONETIME ONE Ondansetron HCl 4 mg 07/21/18 16:07 07/21/18 16:24 Zofran Odt PO 07/21/18 16:08 4 mg ONETIME ONE Administration - Re-Assessments/Exams Free Text/Narrative Re-Assessment/Exam: At this time, Bro is stable and does not present with fever, vitals are stable , so should be able to go home with a stronger antibiotic. She will be advised to stop taking some of her medications to avoid interactions with the antibiotic. She also requests anti nausea medication and would like narcotic pain medication as she can't take NSAIDs. I will give one dose of Tylenol 3 w/ Codeine here, but advised her that her UTI should not be causing enough pain to warrant narcotic use and her back pain needs to be managed by the neurologist. She states she understands. She is also advised to not drive home on this medication, and she states her neighbor will be picking her up today. She also mentions she has been drinking lately, maybe about half a beer this afternoon, but "nothing close to what I used to drink. I used to pour vodka down my throat ". I educated her that she should not be drinking while taking Trazodone or the Ambien I will prescribe in the meantime. She states she understands and will not be drinking with them. Departure - Departure Time of Disposition: 16:18 Disposition: Home, Self-Care 01 Condition: Fair Clinical Impression: UTI (urinary tract infection), Chronic back pain - Discharge Information *PRESCRIPTION DRUG MONITORING PROGRAM REVIEWED*: Yes *COPY OF PRESCRIPTION DRUG MONITORING REPORT IN PATIENT LEONEL: Yes Prescriptions: Levofloxacin [Levaquin] 500 mg PO DAILY 7 Days #7 tablet Promethazine [Phenergan] 25 mg PO Q6H PRN #4 tab PRN Reason: Nausea Instructions: Urinary Tract Infection, Adult, [id number] Referrals: PCP,None [Primary Care Provider] - Forms: ED Department Discharge Additional Instructions: You were seen in the ED today for UTI that did not get better on the previously prescribed antibiotic Keflex. You are stable here and have no fever, so you will be sent home with a stronger antibiotic, Levaquin, for 1 week. Please stop taking your Trazodone during this time, only take your Hydroxyzine once daily instead of twice daily, and hold your Venlafaxine during this time as well due to interactions. Continue using AZO for relief of symptoms. Please take all medications as prescribed. You will also be given an antinausea medication which may cause drowsiness. Will also send you home with Ambien since you usually Trazodone for sleep. Please do not drink while taking any of these medications, as they will make your even more impaired can can cause central nervous system depression. Please do not drive or operate machinery on these medications. Recommend follow up with PCP. Please return to ED if new or worsening symptoms.
[2018-07-21] MEDS ORDERED: Acetaminophen/Codeine 300-30 MG Tab PO ONE (16:16)
== END 2018-07-21 17:00 | disposition home or self-care (01) ==
LOC: JD.ED 15:37
DX: N39.0 Urinary tract infection, site not specified (principal); E78.00 Pure hypercholesterolemia, unspecified; K21.9 Gastro-esophageal reflux disease without esophagitis; F41.9 Anxiety disorder, unspecified; F32.9 Major depressive disorder, single episode, unspecified; E03.9 Hypothyroidism, unspecified; Z86.73 Personal history of transient ischemic attack (TIA), and cerebral infarction without residual deficits; Z79.899 Other long term (current) drug therapy; Z88.6 Allergy status to analgesic agent; Z88.8 Allergy status to other drugs, medicaments and biological substances; Z88.2 Allergy status to sulfonamides
CPT/HCPCS: 99283; A9270

== ENCOUNTER 2018-08-09 10:28 | Emergency (ER) | payer SELFPAY ==
[2018-08-09 10:37] VITALS: BP 151/120
[2018-08-09] MEDS ORDERED: Cyclobenzaprine 10 MG Tab PO ONE (11:24)
[2018-08-09] MEDS ORDERED: methylPREDNISolone Sodium Succinate 125 MG/2 ML SDV IM ONE (11:24)
--- NOTE | 2018-08-09 11:26 | EDM.PDOC ---
ED HPI GENERAL MEDICAL PROBLEM - General Chief Complaint: Upper Extremity Injury/Pain Stated Complaint: L ARM/HAND PAIN Time Seen by Provider: 08/09/18 11:05 Source of Information: Reports: Patient History Limitations: Reports: No Limitations - History of Present Illness INITIAL COMMENTS - FREE TEXT/NARRATIVE: 52-year-old female presents for evaluation and treatment of left-sided neck, left back and left arm pain. She states she's been experiencing pain for the last 2 weeks. She was seen at an ER in [place]. She states that she had x-rays done and was diagnosed with bulging disc. She states that she has had imaging previously which has shown bulging disc. She reports that she now is not sleeping due to the pain. She states that she has had numbness in her fingers. She is utilizing a sling as she has significant pain with any range of motion of her neck, back and left arm. States that she's tried multiple things including ice, heat, muscle relaxers, [id number] Tylenol but continues to have pain. She denies any recent trauma to the neck, back or arm. Primary care providers Demian Limon. She has not seen her for this problem as of yet. Duration: Week(s): (2) Location: Reports: Neck, Back, Upper Extremity, Left - Related Data Allergies Allergy/AdvReac Type Severity Reaction Status Date / Time diphenhydramine Allergy Anxiety Verified 08/09/18 10:37 [From Benadryl] ibuprofen Allergy Rash Verified 08/09/18 10:37 ketorolac [From Toradol] Allergy Rash Verified 08/09/18 10:37 Sulfa (Sulfonamide Allergy Rash Verified 08/09/18 10:37 Antibiotics) sumatriptan [From Imitrex] Allergy Anaphylactic Verified 08/09/18 10:37 Shock tramadol Allergy Rash Verified 08/09/18 10:37 Home Meds: Home Meds Omeprazole Magnesium [Prilosec Otc] 20 mg PO DAILY 12/01/17 [History] Levothyroxine [Synthroid] 50 mcg PO ACBREAKFAST tablet 12/21/17 [Rx] Venlafaxine [Effexor] 150 mg PO DAILY 01/28/18 [History] hydrOXYzine HCl [hydrOXYzine] 50 mg PO BID 01/28/18 [History] Gabapentin [Neurontin] 300 mg PO DAILY 02/16/18 [History] traZODone HCl [Trazodone HCl] 200 mg PO BEDTIME 02/16/18 [History] Promethazine [Phenergan] 25 mg PO Q6H PRN #4 tab 07/21/18 [Rx] Orphenadrine [Norflex] 100 mg PO BID PRN #20 tab 08/09/18 [Rx] predniSONE [Prednisone] 20 mg PO DAILY #10 tablet 08/09/18 [Rx] Past Medical History HEENT History: Reports: Allergic Rhinitis, Impaired Vision Other HEENT History: wears corrective lenses, dental infection Cardiovascular History: Reports: High Cholesterol Respiratory History: Reports: Sleep Apnea, Other (See Below) Other Respiratory History: left lung nodule, restrictive lung disease, cough, shortness of breath, pleural thickening, pleuritic chest pain Gastrointestinal History: Reports: Gastritis, GERD, Other (See Below) Other Gastrointestinal History: esophageal stricture, abdominal pain lower, elevated liver enzymes Genitourinary History: Reports: Urinary Incontinence, UTI, Recurrent, Other ( See Below) Other Genitourinary History: implantable device interstim RLQ- removed 08/16/17 ; interstim neurotransmitter placed jan 2018-left buttocks. 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: Musculoskeletal History: Reports: Back Pain, Chronic, Neck Pain, Chronic, Osteoarthritis Neurological History: Reports: Migraines, Seizure, Other (See Below) Other Neuro History: patient reports "nervous tics", nerve pain, dizziness Psychiatric History: Reports: Addiction, Anxiety, Depression, Suicide Attempt, Other (See Below) Other Psychiatric History: drug overdose, personality disorder, alcohol withdrawal Endocrine/Metabolic History: Reports: Hypothyroidism, Obesity/BMI 30+ Other Endocrine/Metabolic History: reports hypothyroidism 15 years ago that corrected itself Hematologic History: Reports: None Immunologic History: Reports: None Oncologic (Cancer) History: Reports: None Dermatologic History: Reports: Other (See Below) Other Dermatologic History: skin lesion - Infectious Disease History Infectious Disease History: Reports: Chicken Pox - Past Surgical History HEENT Surgical History: Reports: None Cardiovascular Surgical History: Reports: None Respiratory Surgical History: Reports: Lung Biopsies GI Surgical History: Reports: Appendectomy, Cholecystectomy, EGD Female Surgical History: Reports: Hysterectomy, Salpingo-Oophorectomy, Tubal Ligation, Other (See Below) Other Female Surgeries/Procedures: bladder sling 09/2017 Endocrine Surgical History: Reports: None Musculoskeletal Surgical History: Reports: None Oncologic Surgical History: Reports: None Social & Family History - Family History Family Medical History: Noncontributory Cardiac: Reports: Bypass, CAD, Heart Failure - Tobacco Use Smoking Status *Q: Current Every Day Smoker Years of Tobacco use: 10 Packs/Tins Daily: 0.5 - Caffeine Use Caffeine Use: Reports: Coffee, Energy Drinks, Soda - Recreational Drug Use Recreational Drug Use: No - Living Situation & Occupation Living situation: Reports: , Other (with roomate) Occupation: Unemployed Review of Systems - Review of Systems Review Of Systems: See Below Musculoskeletal: Reports: Neck Pain (left sided), Arm Pain (left), Back Pain ( left upper back) Skin: Denies: Bruising, Erythema, Wound Neurological: Reports: Numbness (left hand). Denies: Tingling ED EXAM, GENERAL - Physical Exam Exam: See Below Exam Limited By: No Limitations General Appearance: Alert, WD/WN, No Apparent Distress, Other (tearful) Neck: Normal Inspection, Supple, Limited Range of Motion (reports pain with any movement of the neck, seems to exaggerate symptoms; negative spurlings test), Tender Lateral (left lateral neck). No: Tender Midline Respiratory/Chest: No Respiratory Distress Cardiovascular: Normal Peripheral Pulses, Regular Rate, Rhythm Peripheral Pulses: 2+: Radial (L), Radial (R) Back Exam: Normal Inspection, Paraspinal Tenderness (T1-T4 left). No: Vertebral Tenderness Extremities: Normal Inspection, Limited Range of Motion (unwilling to preform ROM testing of the left arm due to pain), Other (left upper extremity in a sling ). No: Increased Warmth Neurological: Alert, Oriented, Normal Cognition Psychiatric: Normal Affect, Normal Mood Skin Exam: Warm, Dry, Normal Color. No: Increased Warmth, Pallor Course - Vital Signs Last Recorded V/S: Last Vital Signs Temp 96.1 F 08/09/18 10:33 Pulse 94 08/09/18 10:33 Resp 18 08/09/18 10:33 BP 151/120 H 08/09/18 10:33 Pulse Ox 98 08/09/18 10:33 - Orders/Labs/Meds Meds: Medications Discontinued Medications Generic Name Dose Route Start Last Admin Trade Name Freq PRN Reason Stop Dose Admin Cyclobenzaprine HCl 10 mg 08/09/18 11:24 08/09/18 11:41 Flexeril PO 08/09/18 11:25 10 mg ONETIME ONE Administration Methylprednisolone Sodium Succinate 125 mg 08/09/18 11:24 08/09/18 11:41 Solu-Medrol IM 08/09/18 11:25 125 mg ONETIME ONE Administration - Re-Assessments/Exams Free Text/Narrative Re-Assessment/Exam: 08/09/18 11:20 Reviewed the patient's previous imaging on file. No MRI of the cervical spine on file. Patient reports she is out of her psych meds. She states she is "a mess". She is having a tough time with the pain and family situations. She states she does not have insurance at this time. She has not been to [facility] in several months. Offered to have her speak with social secretary for help and she declines. Given her history of suicidality and over dose I do not feel comfortable giving her narcotics. Patient was searched on [facility] aware and she has over 60 Rx for controlled substances in the last year. I will place an order for her to have an MRI as an outpatient and am recommend follow-up with her PCP. Discharge instructions as documented. 08/09/18 12:12 Made aware by nursing staff patient left prior to discharge instructions and outpatient order. Departure - Departure Time of Disposition: 11:39 Disposition: Home, Self-Care 01 Condition: Fair Clinical Impression: Neck pain - Discharge Information *PRESCRIPTION DRUG MONITORING PROGRAM REVIEWED*: No *COPY OF PRESCRIPTION DRUG MONITORING REPORT IN PATIENT LEONEL: No Prescriptions: Orphenadrine [Norflex] 100 mg PO BID PRN #20 tab PRN Reason: Muscle Spasm predniSONE [Prednisone] 20 mg PO DAILY #10 tablet Referrals: Demian Limon PA [Primary Care Provider] - Forms: ED Department Discharge Additional Instructions: Go to [facility] after leaving the ER for a refill of your medications and to see them. Take the prednisone as prescribed. Start tomorrow. May take OTC tylenol as needed for additional pain relief. Use heat or ice for additional pain relief. Take the norflex for muscle pain and spasm. An order has been placed for you to have an MRI of your cervical spine as an outpatient. Please call [phone] to schedule this, ask for radiology. Follow -up with your PCP or one of the other providers for results and further management of your symptoms. Please return to the ER should your symptoms change or worsen .
== END 2018-08-09 11:45 | disposition home or self-care (01) ==
LOC: JD.ED 10:28
DX: M54.2 Cervicalgia (principal); E78.00 Pure hypercholesterolemia, unspecified; F17.210 Nicotine dependence, cigarettes, uncomplicated; Z88.8 Allergy status to other drugs, medicaments and biological substances; Z88.2 Allergy status to sulfonamides; Z88.5 Allergy status to narcotic agent; Z79.899 Other long term (current) drug therapy
CPT/HCPCS: 96372; 99283; A9270; J2930

== ENCOUNTER 2018-08-11 13:49 | Emergency (ER) | payer SELFPAY ==
[2018-08-11 14:00] VITALS: BP 151/113
--- NOTE | 2018-08-11 14:58 | EDM.PDOC ---
ED HPI GENERAL MEDICAL PROBLEM - General Chief Complaint: Upper Extremity Injury/Pain Stated Complaint: LT ARM PAIN Time Seen by Provider: 08/11/18 14:01 Source of Information: Reports: Patient History Limitations: Reports: No Limitations - History of Present Illness INITIAL COMMENTS - FREE TEXT/NARRATIVE: 52 yo F seen here 2 days ago for the same complaint of L-sided neck, back and arm pain, but she left before getting any prescriptions once she found out she wasn't getting narcotics. Pain started 2 weeks ago and has been getting worse "it's now going into my neck and head now". She had an cervical Xray at the ER in [place] and was diagnosed with bulging disc. There was no MRI done. She c/o difficulty sleeping, numbness/tingling in the left fingers. Currently using a sling bc movement makes her pain worse. States that she's tried multiple things including heat, [id number] Aleve and Tylenol but continues to have pain. She denies any recent trauma to the neck, back or arm. She states she's also out of her psych meds but has an appointment with Dr. Figueroa at [facility] on Wednesday. PCP is Demian Limon PA-C, she has an appointment on Wednesday. Left Arm Pain Score (Numeric/FACES): 10 - Related Data Allergies Allergy/AdvReac Type Severity Reaction Status Date / Time diphenhydramine Allergy Anxiety Verified 08/11/18 14:00 [From Benadryl] ibuprofen Allergy Rash Verified 08/11/18 14:00 ketorolac [From Toradol] Allergy Rash Verified 08/11/18 14:00 Sulfa (Sulfonamide Allergy Rash Verified 08/11/18 14:00 Antibiotics) sumatriptan [From Imitrex] Allergy Anaphylactic Verified 08/11/18 14:00 Shock tramadol Allergy Rash Verified 08/11/18 14:00 Home Meds: Home Meds Omeprazole Magnesium [Prilosec Otc] 20 mg PO DAILY 12/01/17 [History] Levothyroxine [Synthroid] 50 mcg PO ACBREAKFAST tablet 12/21/17 [Rx] Venlafaxine [Effexor] 150 mg PO DAILY 01/28/18 [History] hydrOXYzine HCl [hydrOXYzine] 50 mg PO BID 01/28/18 [History] Gabapentin [Neurontin] 300 mg PO DAILY 02/16/18 [History] traZODone HCl [Trazodone HCl] 200 mg PO BEDTIME 02/16/18 [History] Promethazine [Phenergan] 25 mg PO Q6H PRN #4 tab 07/21/18 [Rx] Orphenadrine [Norflex] 100 mg PO BID PRN #20 tab 08/09/18 [Rx] predniSONE [Prednisone] 20 mg PO DAILY #10 tablet 08/09/18 [Rx] Past Medical History HEENT History: Reports: Allergic Rhinitis, Impaired Vision Other HEENT History: wears corrective lenses, dental infection Cardiovascular History: Reports: High Cholesterol Respiratory History: Reports: Sleep Apnea, Other (See Below) Other Respiratory History: left lung nodule, restrictive lung disease, cough, shortness of breath, pleural thickening, pleuritic chest pain Gastrointestinal History: Reports: Gastritis, GERD, Other (See Below) Other Gastrointestinal History: esophageal stricture, abdominal pain lower, elevated liver enzymes Genitourinary History: Reports: Urinary Incontinence, UTI, Recurrent, Other ( See Below) Other Genitourinary History: implantable device interstim RLQ- removed 08/16/17 ; interstim neurotransmitter placed jan 2018-left buttocks. 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: Musculoskeletal History: Reports: Back Pain, Chronic, Neck Pain, Chronic, Osteoarthritis Neurological History: Reports: Migraines, Seizure, Other (See Below) Other Neuro History: patient reports "nervous tics", nerve pain, dizziness Psychiatric History: Reports: Addiction, Anxiety, Depression, Suicide Attempt, Other (See Below) Other Psychiatric History: drug overdose, personality disorder, alcohol withdrawal Endocrine/Metabolic History: Reports: Hypothyroidism, Obesity/BMI 30+ Other Endocrine/Metabolic History: reports hypothyroidism 15 years ago that corrected itself Hematologic History: Reports: None Immunologic History: Reports: None Oncologic (Cancer) History: Reports: None Dermatologic History: Reports: Other (See Below) Other Dermatologic History: skin lesion - Infectious Disease History Infectious Disease History: Reports: Chicken Pox - Past Surgical History HEENT Surgical History: Reports: None Cardiovascular Surgical History: Reports: None Respiratory Surgical History: Reports: Lung Biopsies GI Surgical History: Reports: Appendectomy, Cholecystectomy, EGD Female Surgical History: Reports: Hysterectomy, Salpingo-Oophorectomy, Tubal Ligation, Other (See Below) Other Female Surgeries/Procedures: bladder sling 09/2017 Endocrine Surgical History: Reports: None Musculoskeletal Surgical History: Reports: None Oncologic Surgical History: Reports: None Social & Family History - Family History Family Medical History: Noncontributory Cardiac: Reports: Bypass, CAD, Heart Failure - Tobacco Use Smoking Status *Q: Current Every Day Smoker Years of Tobacco use: 20 Packs/Tins Daily: 0.5 - Caffeine Use Caffeine Use: Reports: Coffee, Energy Drinks, Soda - Living Situation & Occupation Living situation: Reports: , Other (with roomate) Occupation: Unemployed Review of Systems - Review of Systems Review Of Systems: ROS reveals no pertinent complaints other than HPI. ED EXAM, GENERAL - Physical Exam Exam: See Below Exam Limited By: No Limitations General Appearance: Alert, WD/WN, Mild Distress Eye Exam: Bilateral Eye: EOMI, Normal Inspection, PERRL Ears: Normal External Exam, Hearing Grossly Normal Nose: Normal Inspection, Normal Mucosa, No Blood Head: Atraumatic, Normocephalic Neck: Normal Inspection, Supple, Full Range of Motion, Tender Midline Respiratory/Chest: No Respiratory Distress, Lungs Clear, Normal Breath Sounds, No Accessory Muscle Use, Chest Non-Tender Cardiovascular: Normal Peripheral Pulses, Regular Rate, Rhythm, No Edema GI/Abdominal: Normal Bowel Sounds, Soft, Non-Tender, No Organomegaly, No Distention, No Abnormal Bruit, No Mass Back Exam: Normal Inspection, Full Range of Motion. No: Paraspinal Tenderness, Vertebral Tenderness Extremities: Normal Capillary Refill, Arm Pain (left arm), Limited Range of Motion (left arm) Neurological: Alert, Oriented, CN II-XII Intact, Normal Cognition, Normal Gait, Normal Reflexes, No Motor/Sensory Deficits Psychiatric: Normal Affect, Anxious Skin Exam: Warm, Dry, Intact, Normal Color, No Rash Course - Vital Signs Last Recorded V/S: Last Vital Signs Temp 97.5 F 08/11/18 13:59 Pulse 95 08/11/18 13:59 Resp 18 08/11/18 13:59 BP 151/113 H 08/11/18 13:59 Pulse Ox 100 08/11/18 13:59 - Orders/Labs/Meds Meds: Medications Discontinued Medications Generic Name Dose Route Start Last Admin Trade Name Freq PRN Reason Stop Dose Admin Prednisone 60 mg 08/11/18 15:21 08/11/18 15:28 Prednisone PO 08/11/18 15:22 60 mg ONETIME ONE Administration - Re-Assessments/Exams Free Text/Narrative Re-Assessment/Exam: 08/11/18 15:11 She is asking for pain medication. Given her history of polysubstance abuse/ suicidality/overdose I do not feel comfortable giving her narcotics. Patient was searched on [place] OVEN OPERATOR aware and she has over 60 Rx for controlled substances in the last year. At this time, will give her prednisone. 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 Pt is stable enough to go home. Order for MRI as an outpatient given. Recommend follow-up with her PCP. Departure - Departure Time of Disposition: 15:22 Disposition: Home, Self-Care 01 Condition: Fair Clinical Impression: Neck pain - Discharge Information *PRESCRIPTION DRUG MONITORING PROGRAM REVIEWED*: Not Applicable *COPY OF PRESCRIPTION DRUG MONITORING REPORT IN PATIENT LEONEL: Not Applicable Instructions: Cervical Radiculopathy, [id number] Referrals: Demian Limon PA [Primary Care Provider] - Forms: ED Department Discharge Additional Instructions: You were seen in the ED today for neck pain for 2 weeks. At this time, you are stable enough to go home. Will send you home with an order for MRI of your neck to confirm if there is a bulging disc. You were given steroid while here and will be sent home with steroid (Prednisone) as well as muscle relaxer (Norflex) , which was written for you from your last visit to the ED. Do not take Norflex while operating machinery (such as driving) as it can cause impairment. You can continue to take over the counter medications such as Tylenol to help with pain relief. Recommend follow up with your primary care provider- keep appointment for Wednesday. Continue to wear your sling if it helps alleviate your symptoms. Please return to ED if new or worsening symptoms.
[2018-08-11] MEDS ORDERED: predniSONE 20 MG Tab PO ONE (15:21)
== END 2018-08-11 15:49 | disposition home or self-care (01) ==
LOC: JD.ED 13:49
DX: M54.2 Cervicalgia (principal)
CPT/HCPCS: 99283; A9270

== ENCOUNTER 2018-08-28 09:55 | Emergency (ER) | payer MEDICAID ==
--- NOTE | 2018-08-28 10:38 | EDM.PDOC ---
ED HPI GENERAL MEDICAL PROBLEM - General Chief Complaint: Upper Extremity Injury/Pain Stated Complaint: LT ARM AND SHOULDER PAIN Time Seen by Provider: 08/28/18 10:13 Source of Information: Reports: Patient History Limitations: Reports: No Limitations - History of Present Illness INITIAL COMMENTS - FREE TEXT/NARRATIVE: The patient presents with left arm pain and neck pain. She had an MRI done that showed 4 bulging discs. She is going to see the pain specialist for an injection in her neck. She is not getting any sleep at night due to the pain. She has no numbness or weakness. She has no other symptoms such as fever, chills, cough, congestion or runny nose. Onset: Gradual Duration: Week(s): Location: Reports: Neck, Upper Extremity, Left Quality: Reports: Sharp Severity: Severe Improves with: Reports: Immobilization Worsens with: Reports: Movement Associated Symptoms: Reports: No Other Symptoms Neck Pain Score (Numeric/FACES): 10 Left Shoulder Pain Score (Numeric/FACES): 10 Left Elbow Pain Score (Numeric/FACES): 10 - Related Data Allergies Allergy/AdvReac Type Severity Reaction Status Date / Time diphenhydramine Allergy Anxiety Verified 08/28/18 10:05 [From Benadryl] ibuprofen Allergy Rash Verified 08/28/18 10:05 ketorolac [From Toradol] Allergy Rash Verified 08/28/18 10:05 Sulfa (Sulfonamide Allergy Rash Verified 08/28/18 10:05 Antibiotics) sumatriptan [From Imitrex] Allergy Anaphylactic Verified 08/28/18 10:05 Shock tramadol Allergy Rash Verified 08/28/18 10:05 Home Meds: Home Meds Omeprazole Magnesium [Prilosec Otc] 20 mg PO DAILY 12/01/17 [History] Levothyroxine [Synthroid] 50 mcg PO ACBREAKFAST tablet 12/21/17 [Rx] Venlafaxine [Effexor] 150 mg PO DAILY 01/28/18 [History] hydrOXYzine HCl [hydrOXYzine] 50 mg PO BID 01/28/18 [History] Promethazine [Phenergan] 25 mg PO Q6H PRN #4 tab 07/21/18 [Rx] Orphenadrine [Norflex] 100 mg PO BID PRN #20 tab 08/09/18 [Rx] Hydrocodone/Acetaminophen [Hydrocodon-Acetaminophen 5-325] 1 - 2 each PO Q6HR PRN #10 tablet 08/28/18 [Rx] Ondansetron [Zofran ODT] 4 mg PO Q6H PRN #20 tab.dis 08/28/18 [Rx] Past Medical History HEENT History: Reports: Allergic Rhinitis, Impaired Vision Other HEENT History: wears corrective lenses, dental infection Cardiovascular History: Reports: High Cholesterol Respiratory History: Reports: Sleep Apnea, Other (See Below) Other Respiratory History: left lung nodule, restrictive lung disease, cough, shortness of breath, pleural thickening, pleuritic chest pain Gastrointestinal History: Reports: Gastritis, GERD, Other (See Below) Other Gastrointestinal History: esophageal stricture, abdominal pain lower, elevated liver enzymes Genitourinary History: Reports: Urinary Incontinence, UTI, Recurrent, Other ( See Below) Other Genitourinary History: implantable device interstim RLQ- removed 08/16/17 ; interstim neurotransmitter placed jan 2018-left buttocks. 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: Musculoskeletal History: Reports: Back Pain, Chronic, Neck Pain, Chronic, Osteoarthritis Neurological History: Reports: Migraines, Seizure, Other (See Below) Other Neuro History: patient reports "nervous tics", nerve pain, dizziness Psychiatric History: Reports: Addiction, Anxiety, Depression, Suicide Attempt, Other (See Below) Other Psychiatric History: drug overdose, personality disorder, alcohol withdrawal Endocrine/Metabolic History: Reports: Hypothyroidism, Obesity/BMI 30+ Other Endocrine/Metabolic History: reports hypothyroidism 15 years ago that corrected itself Hematologic History: Reports: None Immunologic History: Reports: None Oncologic (Cancer) History: Reports: None Dermatologic History: Reports: Other (See Below) Other Dermatologic History: skin lesion - Infectious Disease History Infectious Disease History: Reports: Chicken Pox - Past Surgical History HEENT Surgical History: Reports: None Cardiovascular Surgical History: Reports: None Respiratory Surgical History: Reports: Lung Biopsies GI Surgical History: Reports: Appendectomy, Cholecystectomy, EGD Female Surgical History: Reports: Hysterectomy, Salpingo-Oophorectomy, Tubal Ligation, Other (See Below) Other Female Surgeries/Procedures: bladder sling 09/2017 Endocrine Surgical History: Reports: None Musculoskeletal Surgical History: Reports: None Oncologic Surgical History: Reports: None Social & Family History - Family History Family Medical History: Noncontributory Cardiac: Reports: Bypass, CAD, Heart Failure - Tobacco Use Smoking Status *Q: Current Every Day Smoker Years of Tobacco use: 10 Packs/Tins Daily: 0.2 Second Hand Smoke Exposure: No - Caffeine Use Caffeine Use: Reports: Coffee, Tea - Alcohol Use Days Per Week of Alcohol Use: 2 Number of Drinks Per Day: 2 Total Drinks Per Week: 4 - Recreational Drug Use Recreational Drug Use: No - Living Situation & Occupation Living situation: Reports: , Other (with roomate) Occupation: Unemployed Review of Systems - Review of Systems Review Of Systems: See Below Constitutional: Reports: No Symptoms Eyes: Reports: No Symptoms Ears: Reports: No Symptoms Nose: Reports: No Symptoms Mouth/Throat: Reports: No Symptoms Respiratory: Reports: No Symptoms Cardiovascular: Reports: No Symptoms GI/Abdominal: Reports: No Symptoms Genitourinary: Reports: No Symptoms Musculoskeletal: Reports: Neck Pain ED EXAM, GENERAL - Physical Exam Exam: See Below Exam Limited By: No Limitations General Appearance: Alert, No Apparent Distress Ears: Normal External Exam Nose: Normal Inspection Head: Atraumatic, Normocephalic Neck: Tender Lateral (left side) Respiratory/Chest: No Respiratory Distress Extremities: Normal Inspection Course - Vital Signs Last Recorded V/S: Last Vital Signs Temp 95.5 F 08/28/18 10:00 Pulse 98 08/28/18 10:00 Resp 20 08/28/18 10:00 BP 165/113 H 08/28/18 10:00 Pulse Ox 100 08/28/18 10:00 Departure - Departure Time of Disposition: 10:40 Disposition: Home, Self-Care 01 Condition: Good Clinical Impression: Bulging of cervical intervertebral disc, Left arm pain - Discharge Information *PRESCRIPTION DRUG MONITORING PROGRAM REVIEWED*: No *COPY OF PRESCRIPTION DRUG MONITORING REPORT IN PATIENT LEONEL: No Prescriptions: Hydrocodone/Acetaminophen [Hydrocodon-Acetaminophen 5-325] 1 - 2 each PO Q6HR PRN #10 tablet PRN Reason: Pain Ondansetron [Zofran ODT] 4 mg PO Q6H PRN #20 tab.dis PRN Reason: Nausea\\vomiting Referrals: Demian Limon PA [Primary Care Provider] - Additional Instructions: Take the medication as prescribed. Try ice or heat which ever one feels better. Follow up with your doctor as scheduled on Wednesday.
[2018-08-28 10:48] VITALS: BP 129/93
== END 2018-08-28 10:45 | disposition home or self-care (01) ==
LOC: JD.ED 09:55
DX: M50.20 Other cervical disc displacement, unspecified cervical region (principal); F41.9 Anxiety disorder, unspecified; F32.9 Major depressive disorder, single episode, unspecified; E03.9 Hypothyroidism, unspecified; E66.9 Obesity, unspecified; M19.90 Unspecified osteoarthritis, unspecified site; K21.9 Gastro-esophageal reflux disease without esophagitis; F17.210 Nicotine dependence, cigarettes, uncomplicated; Z94.9 Transplanted organ and tissue status, unspecified; Z90.710 Acquired absence of both cervix and uterus; Z90.49 Acquired absence of other specified parts of digestive tract; Z98.51 Tubal ligation status; Z88.6 Allergy status to analgesic agent; Z88.2 Allergy status to sulfonamides; Z88.5 Allergy status to narcotic agent; Z88.8 Allergy status to other drugs, medicaments and biological substances
CPT/HCPCS: 99283

== ENCOUNTER 2018-09-02 10:36 | Emergency (ER) | payer MEDICAID ==
[2018-09-02 10:54] VITALS: BP 159/121
--- NOTE | 2018-09-02 12:13 | EDM.PDOC ---
ED HPI GENERAL MEDICAL PROBLEM - General Chief Complaint: Back Pain or Injury Stated Complaint: BACK AND NECK PAIN Time Seen by Provider: 09/02/18 12:13 Source of Information: Reports: Patient, RN Notes Reviewed History Limitations: Reports: No Limitations - History of Present Illness INITIAL COMMENTS - FREE TEXT/NARRATIVE: Patient is a 52-year-old female who presents to the ED for evaluation of neck upper back and left shoulder pain. She notes this has been present for at least 6 weeks. She has been to the ER multiple times for pain management for this affliction. She has had an MRI done in this facility and it showed a small disc herniation on the posterior left lateral portion of C6-C7. There was no mention of any effacement or encroachment. The patient states that she went to the pain clinic in [place] for an epidural injection, however they did not want to give her an injection as a thought it could paralyze her cause for his problems. She did not get this epidural injection. She did call Rhoda Limon, who is her primary care provider and she did refill her gabapentin. The patient states that she has been taking meloxicam, Tylenol, ibuprofen, and using heat and ice and massage for the pain however nothing has provided much pain relief. The patient does have an appointment with a neurosurgeon, Dr. Liu on September 26. However she has not been able to sleep or function much due to the pain. She does have a history of narcotic abuse, and suicidality. She is also recovering alcoholic, and she states now that she has relapsed into alcoholism due to the pain. She states that that is when the only things that provides her relief, she states that she drinks until she passes out so the pain will go away. She notes that she has seen Dr. calderon, and has been back on her psychiatric meds. She states that she did try the prednisone and orphenadrine given by other ER providers and this has not provided much relief. Neck Pain Score (Numeric/FACES): 10 - Related Data Allergies Allergy/AdvReac Type Severity Reaction Status Date / Time diphenhydramine Allergy Anxiety Verified 09/02/18 10:55 [From Benadryl] ibuprofen Allergy Rash Verified 09/02/18 12:41 ketorolac [From Toradol] Allergy Rash Verified 09/02/18 12:41 Sulfa (Sulfonamide Allergy Rash Verified 09/02/18 10:55 Antibiotics) sumatriptan [From Imitrex] Allergy Anaphylactic Verified 09/02/18 10:55 Shock tramadol Allergy Rash Verified 09/02/18 10:55 Home Meds: Home Meds Omeprazole Magnesium [Prilosec Otc] 20 mg PO DAILY 12/01/17 [History] Levothyroxine [Synthroid] 50 mcg PO ACBREAKFAST tablet 12/21/17 [Rx] Venlafaxine [Effexor] 150 mg PO DAILY 01/28/18 [History] hydrOXYzine HCl [hydrOXYzine] 50 mg PO BID 01/28/18 [History] Promethazine [Phenergan] 25 mg PO Q6H PRN #4 tab 07/21/18 [Rx] Ondansetron [Zofran ODT] 4 mg PO Q6H PRN #20 tab.dis 08/28/18 [Rx] Gabapentin [Neurontin] 300 mg PO BID 09/02/18 [History] Past Medical History HEENT History: Reports: Allergic Rhinitis, Impaired Vision Other HEENT History: wears corrective lenses, dental infection Cardiovascular History: Reports: High Cholesterol Respiratory History: Reports: Sleep Apnea, Other (See Below) Other Respiratory History: left lung nodule, restrictive lung disease, cough, shortness of breath, pleural thickening, pleuritic chest pain Gastrointestinal History: Reports: Gastritis, GERD, Other (See Below) Other Gastrointestinal History: esophageal stricture, abdominal pain lower, elevated liver enzymes Genitourinary History: Reports: Urinary Incontinence, UTI, Recurrent, Other ( See Below) Other Genitourinary History: implantable device interstim RLQ- removed 08/16/17 ; interstim neurotransmitter placed jan 2018-left buttocks. FIRST BEATER History: Reports: Musculoskeletal History: Reports: Back Pain, Chronic, Neck Pain, Chronic, Osteoarthritis Neurological History: Reports: Migraines, Seizure, Other (See Below) Other Neuro History: patient reports "nervous tics", nerve pain, dizziness Psychiatric History: Reports: Addiction, Anxiety, Depression, Suicide Attempt, Other (See Below) Other Psychiatric History: drug overdose, personality disorder, alcohol withdrawal Endocrine/Metabolic History: Reports: Hypothyroidism, Obesity/BMI 30+ Other Endocrine/Metabolic History: reports hypothyroidism 15 years ago that corrected itself Hematologic History: Reports: None Immunologic History: Reports: None Oncologic (Cancer) History: Reports: None Dermatologic History: Reports: Other (See Below) Other Dermatologic History: skin lesion - Infectious Disease History Infectious Disease History: Reports: Chicken Pox - Past Surgical History HEENT Surgical History: Reports: None Cardiovascular Surgical History: Reports: None Respiratory Surgical History: Reports: Lung Biopsies GI Surgical History: Reports: Appendectomy, Cholecystectomy, EGD Female Surgical History: Reports: Hysterectomy, Salpingo-Oophorectomy, Tubal Ligation, Other (See Below) Other Female Surgeries/Procedures: bladder sling 09/2017 Endocrine Surgical History: Reports: None Musculoskeletal Surgical History: Reports: None Oncologic Surgical History: Reports: None Social & Family History - Family History Family Medical History: Noncontributory Cardiac: Reports: Bypass, CAD, Heart Failure - Tobacco Use Smoking Status *Q: Current Every Day Smoker Years of Tobacco use: 10 Packs/Tins Daily: 0.5 - Caffeine Use Caffeine Use: Reports: Coffee - Recreational Drug Use Recreational Drug Use: No - Living Situation & Occupation Living situation: Reports: , Other (with roomate) Occupation: Unemployed ED ROS GENERAL - Review of Systems Review Of Systems: See Below Constitutional: Reports: No Symptoms HEENT: Reports: No Symptoms Respiratory: Reports: No Symptoms Cardiovascular: Reports: No Symptoms Endocrine: Reports: No Symptoms GI/Abdominal: Reports: No Symptoms : Reports: No Symptoms Musculoskeletal: Reports: Neck Pain (left), Shoulder Pain (left), Arm Pain (lwft ) Skin: Reports: No Symptoms Neurological: Reports: No Symptoms Psychiatric: Reports: No Symptoms Hematologic/Lymphatic: Reports: No Symptoms ED EXAM, UPPER BACK/NECK PAIN - Physical Exam Exam: See Below Exam Limited By: No Limitations General Appearance: Alert, WD/WN, No Apparent Distress (pt begins to be tearful when history is taken, but is moving arm at this time, in no obvious pain) Head Exam: Atraumatic, Normocephalic Neck Exam: Full Range of Motion, Normal Alignment, Normal Inspection, Paraspinous Muscle Tender Nexus Criteria: No: Posterior, Midline Cervical Tenderness, Evidence of Intoxication, Altered Level of Consciousness, Focal Neurological Deficit, Painful Distraction Injuries Cardiovascular/Respiratory: Regular Rate, Rhythm, Normal Peripheral Pulses, Normal Breath Sounds, No Respiratory Distress GI/Abdominal: Normal Bowel Sounds, Soft, Non-Tender, No Distention Back Exam: Normal Inspection, Full Range of Motion Extremities: Normal Inspection, Normal Capillary Refill Neurologic: No Motor/Sensory Deficits, Alert, Normal Mood/Affect, Oriented x 3 Psychiatric: Normal Affect, Normal Mood Skin Exam: Normal Color, Warm/Dry Course - Vital Signs Last Recorded V/S: Last Vital Signs Temp 97.4 F 09/02/18 10:51 Pulse 89 09/02/18 10:51 Resp 18 09/02/18 10:51 BP 159/121 H 09/02/18 10:51 Pulse Ox 96 09/02/18 10:51 - Orders/Labs/Meds Meds: Medications Discontinued Medications Generic Name Dose Route Start Last Admin Trade Name Ashvin PRN Reason Stop Dose Admin Ketorolac Tromethamine 30 mg 09/02/18 12:27 09/02/18 12:33 Toradol IM 09/02/18 12:28 30 mg ONETIME ONE Administration - Re-Assessments/Exams Free Text/Narrative Re-Assessment/Exam: 09/02/18 13:16 Patient presents to the ED for the evaluation of left neck, arm, shoulder pain. Patient does have an extensive history of drug abuse/suicidality. I do not feel comfortable giving her any narcotic pain medications at this time. I have offered her 30 mg IM Toradol and she did take this. She notes that she does have a prior allergy to Toradol where she gets a rash. The RN states that she gave the medication 30-40 minutes ago and the patient tolerated this okay and fell asleep, however when she woke up she began to feel itchy so I did order 50 mg by mouth Benadryl, however it looks as if she has an allergy to Benadryl that provides her anxiety. So she will be allowed to decide whether or not she wants the Benadryl. I do believe that her seeking the care of the neurosurgeon is going to be her best avenue for pain relief and control. I did talk extensively with the patient about this. Her [place] [facility] was checked and she does have over 60 prescriptions for narcotic pain medications in the last year. I did encourage her to stop drinking alcohol to try to numb the pain as this is not going to provide her long-term relief, this is just a Band-Aid. I did tell her that she should seek care by Dr. restrepo. She is understanding of this. However she was still wanting something more for her pain. Departure - Departure Time of Disposition: 13:18 Disposition: Home, Self-Care 01 Condition: Fair Clinical Impression: Left shoulder pain Qualifiers: Chronicity: acute Qualified Code(s): M25.512 - Pain in left shoulder - Discharge Information *PRESCRIPTION DRUG MONITORING PROGRAM REVIEWED*: Yes *COPY OF PRESCRIPTION DRUG MONITORING REPORT IN PATIENT LEONEL: No Instructions: Musculoskeletal Pain Referrals: Demian Limon PA [Primary Care Provider] - Forms: ED Department Discharge Additional Instructions: You have been evaluated in the ED today for your left neck, shoulder, arm pain. Due to this being a chronic issue, and with the results of MRI, it is recommended that you seek care through the neurosurgeon to see if he can fit you in earlier. Providing narcotics through the ER will not fix your problems. You can take 600 mg ibuprofen every 6 hours, 500-1000 mg Tylenol every 6 hours, or 1-2 tablets of Aleve every 12 for further pain relief. You may also take your other pain medication such as gabapentin, to provide pain relief. Again it is recommended that you follow up with neurosurgeon to see if he can fit you in sooner than September 26. You may follow up with your primary care provider, Rhoda Limon for pain management in the meantime. Please return to the ED if her symptoms should change or worsen.
[2018-09-02] MEDS ORDERED: Ketorolac 30 MG/ML SDV IM ONE (12:27)
[2018-09-02] MEDS ORDERED: diphenhydrAMINE 50 MG Cap PO ONE (13:08)
[2018-09-02] MEDS ORDERED: diphenhydrAMINE 50 MG Cap ONE (13:10)
== END 2018-09-02 13:29 | disposition home or self-care (01) ==
LOC: JD.ED 10:36
DX: M25.512 Pain in left shoulder (principal); M54.2 Cervicalgia; M54.6 Pain in thoracic spine; K21.9 Gastro-esophageal reflux disease without esophagitis; E03.9 Hypothyroidism, unspecified; E66.9 Obesity, unspecified; F41.9 Anxiety disorder, unspecified; F32.9 Major depressive disorder, single episode, unspecified; M19.90 Unspecified osteoarthritis, unspecified site; F17.210 Nicotine dependence, cigarettes, uncomplicated; Z90.49 Acquired absence of other specified parts of digestive tract; Z90.710 Acquired absence of both cervix and uterus; Z98.51 Tubal ligation status; Z88.2 Allergy status to sulfonamides; Z88.5 Allergy status to narcotic agent; Z88.6 Allergy status to analgesic agent; Z88.8 Allergy status to other drugs, medicaments and biological substances; Z79.899 Other long term (current) drug therapy
CPT/HCPCS: 96372; 99283; A9270; J1885

== ENCOUNTER 2018-09-06 05:24 | Inpatient (IN) | payer MEDICAID ==
[2018-09-06] MEDS ORDERED: Ondansetron 4 MG/2 ML SDV IVPUSH ONE (06:00)
[2018-09-06] MEDS ORDERED: Sodium Chloride 0.9% 10 ML Syringe FLUSH PRN (06:00)
[2018-09-06] MEDS ORDERED: Sodium Chloride 0.9% 1,000 ML IV SCH (06:00)
[2018-09-06] MEDS ORDERED: LORazepam 2 MG/ML SDV IVPUSH ONE (06:06)
--- NOTE | 2018-09-06 06:13 | EDM.PDOCBH ---
<Reggie Melo Meena - Last Filed: 09/06/18 06:08> ED HPI GENERAL MEDICAL PROBLEM - General Chief Complaint: Drug or Alcohol Abuse Stated Complaint: WITHDRAWL FROM ALCOHOL Time Seen by Provider: 09/06/18 06:05 Source of Information: Reports: Patient, RN Notes Reviewed - History of Present Illness INITIAL COMMENTS - FREE TEXT/NARRATIVE: 52-year-old female comes in looking for help for alcohol withdrawal symptoms. She states that she had been sober from November until May of this year, started drinking some time in May and has been drinking heavily daily for at least the last 2 months or more. She has been drinking about a pint of whiskey per day. She started to cut back Wednesday 2 days ago and then had much less alcohol yesterday. She states she started getting sick already yesterday afternoon and has had quite severe nausea, vomiting and now having mostly dry heaves. Also very shaky. She is not hallucinating. She states she has never had withdrawal seizures that she is aware of. Right Middle Abdomen Pain Score (Numeric/FACES): 8 - Related Data Allergies Allergy/AdvReac Type Severity Reaction Status Date / Time diphenhydramine Allergy Anxiety Verified 09/06/18 05:36 [From Benadryl] ibuprofen Allergy Rash Verified 09/06/18 05:36 ketorolac [From Toradol] Allergy Rash Verified 09/06/18 05:36 Sulfa (Sulfonamide Allergy Rash Verified 09/06/18 05:36 Antibiotics) sumatriptan [From Imitrex] Allergy Anaphylactic Verified 09/06/18 05:36 Shock tramadol Allergy Rash Verified 09/06/18 05:36 Home Meds: Home Meds Omeprazole Magnesium [Prilosec Otc] 20 mg PO DAILY 12/01/17 [History] Levothyroxine [Synthroid] 50 mcg PO ACBREAKFAST tablet 12/21/17 [Rx] Venlafaxine [Effexor] 150 mg PO DAILY 01/28/18 [History] hydrOXYzine HCl [hydrOXYzine] 50 mg PO BID 01/28/18 [History] Ondansetron [Zofran ODT] 4 mg PO Q6H PRN #20 tab.dis 08/28/18 [Rx] Gabapentin [Neurontin] 300 mg PO BID 09/02/18 [History] Meloxicam 7.5 mg PO BID 09/06/18 [History] Orphenadrine [Norflex] 100 mg PO BID 09/06/18 [History] Past Medical History HEENT History: Reports: Allergic Rhinitis, Impaired Vision Other HEENT History: wears corrective lenses, dental infection Cardiovascular History: Reports: High Cholesterol Respiratory History: Reports: Sleep Apnea, Other (See Below) Other Respiratory History: left lung nodule, restrictive lung disease, cough, shortness of breath, pleural thickening, pleuritic chest pain Gastrointestinal History: Reports: Gastritis, GERD, Other (See Below) Other Gastrointestinal History: esophageal stricture, abdominal pain lower, elevated liver enzymes Genitourinary History: Reports: Urinary Incontinence, UTI, Recurrent, Other ( See Below) Other Genitourinary History: implantable device interstim RLQ- removed 08/16/17 ; interstim neurotransmitter placed jan 2018-left buttocks. MANAGER FLORAL History: Reports: Musculoskeletal History: Reports: Back Pain, Chronic, Neck Pain, Chronic, Osteoarthritis Neurological History: Reports: Migraines, Seizure, Other (See Below) Other Neuro History: patient reports "nervous tics", nerve pain, dizziness Psychiatric History: Reports: Addiction, Anxiety, Depression, Suicide Attempt, Other (See Below) Other Psychiatric History: drug overdose, personality disorder, alcohol withdrawal Endocrine/Metabolic History: Reports: Hypothyroidism, Obesity/BMI 30+ Other Endocrine/Metabolic History: reports hypothyroidism 15 years ago that corrected itself Hematologic History: Reports: None Immunologic History: Reports: None Oncologic (Cancer) History: Reports: None Dermatologic History: Reports: Other (See Below) Other Dermatologic History: skin lesion - Infectious Disease History Infectious Disease History: Reports: Chicken Pox - Past Surgical History HEENT Surgical History: Reports: None Cardiovascular Surgical History: Reports: None Respiratory Surgical History: Reports: Lung Biopsies GI Surgical History: Reports: Appendectomy, Cholecystectomy, EGD Female Surgical History: Reports: Hysterectomy, Salpingo-Oophorectomy, Tubal Ligation, Other (See Below) Other Female Surgeries/Procedures: bladder sling 09/2017 Endocrine Surgical History: Reports: None Musculoskeletal Surgical History: Reports: None Oncologic Surgical History: Reports: None Social & Family History - Family History Family Medical History: Noncontributory Cardiac: Reports: Bypass, CAD, Heart Failure - Tobacco Use Smoking Status *Q: Light Tobacco Smoker Years of Tobacco use: 10 Packs/Tins Daily: 0.2 - Caffeine Use Caffeine Use: Reports: None - Alcohol Use Days Per Week of Alcohol Use: 7 Number of Drinks Per Day: 1 Total Drinks Per Week: 7 Date of Last Drink: 09/06/18 Time of Last Drink: 15:00 - Recreational Drug Use Recreational Drug Use: Yes - Living Situation & Occupation Living situation: Reports: , Other (with roomate) Occupation: Unemployed ED ROS GENERAL - Review of Systems Review Of Systems: See Below Constitutional: Denies: Fever, Chills, Diaphoresis HEENT: Reports: No Symptoms Respiratory: Denies: Shortness of Breath, Wheezing Cardiovascular: Denies: Chest Pain GI/Abdominal: Reports: Abdominal Pain (She's had a lot of abdominal pain and cramps), Nausea, Vomiting Musculoskeletal: Reports: Other (Generalized achiness) Skin: Reports: No Symptoms Neurological: Reports: Other (Feels very shaky) Psychiatric: Reports: Anxiety ED EXAM, BEHAVIORAL HEALTH - Physical Exam Exam: See Below General Appearance: Alert, Anxious, Moderate Distress Eye Exam: Bilateral Eye: PERRL Throat/Mouth: Normal Inspection, Normal Oropharynx Head: Atraumatic Neck: Supple Respiratory/Chest: No Respiratory Distress, Lungs Clear, Normal Breath Sounds Cardiovascular: Tachycardia GI/Abdominal: Soft, Tender (mild diffuse tenderness) Extremities: Other (moderate tremor) Neurological: Alert, No Motor/Sensory Deficits COURSE, BEHAVIORAL HEALTH COMP - Course Vital Signs: Last Vital Signs Temp 36.1 C 09/06/18 05:36 Pulse 112 H 09/06/18 05:36 Resp 20 09/06/18 05:36 BP 134/118 H 09/06/18 05:36 Pulse Ox 100 09/06/18 05:36 Orders, Labs, Meds: Active Orders 24 hr Category Date Time Status Peripheral IV Care [RC] . DIRECTED Care 09/06/18 06:03 Active Sodium Chloride 0.9% [Normal Saline] 1,000 ml Med 09/06/18 06:00 Active IV ONETIME Sodium Chloride 0.9% [Saline Flush] Med 09/06/18 06:00 Active 10 ml FLUSH ASDIRECTED PRN Peripheral IV Insertion Adult [OM.PC] Stat Oth 09/06/18 06:00 Ordered Medication Orders Sodium Chloride (Normal Saline) 1,000 mls @ 999 mls/hr IV ONETIME HÉCTOR Last Admin: 09/06/18 07:36 Dose: 999 mls/hr Sodium Chloride (Saline Flush) 10 ml FLUSH ASDIRECTED PRN PRN Reason: Keep Vein Open Last Admin: 09/06/18 07:20 Dose: 10 ml Laboratory Tests 09/06/18 09/06/18 09/06/18 Range/Units 06:00 07:48 07:48 WBC 7.18 (3.98-10.04) K/mm3 RBC 4.70 (3.98-5.22) M/mm3 Hgb 14.6 D (11.2-15.7) gm/L Hct 43.9 (34.1-44.9) % MCV 93.4 (79.4-94.8) fl MCH 31.1 (25.6-32.2) pg MCHC 33.3 (32.2-35.5) g/dl RDW Std Deviation 43.6 (36.4-46.3) fL Plt Count 296 (182-369) K/mm3 MPV 9.6 (9.4-12.3) fl Neut % (Auto) 75.8 H (34.0-71.1) % Lymph % (Auto) 16.6 L (19.3-51.7) % Tate % (Auto) 5.4 (4.7-12.5) % Eos % (Auto) 1.7 (0.7-5.8) Baso % (Auto) 0.4 (0.1-1.2) % Neut # (Auto) 5.44 (1.56-6.13) K/mm3 Lymph # (Auto) 1.19 (1.18-3.74) K/mm3 Tate # (Auto) 0.39 H (0.24-0.36) K/mm3 Eos # (Auto) 0.12 (0.04-0.36) K/mm3 Baso # (Auto) 0.03 (0.01-0.08) K/mm3 Sodium 141 (136-145) mEq/L Potassium 3.6 (3.5-5.1) mEq/L Chloride 104 (98-107) mEq/L Carbon Dioxide 24 (21-32) mEq/L Anion Gap 16.6 H (5-15) BUN 14 (7-18) mg/dL Creatinine 0.9 (0.55-1.02) mg/dL Est Cr Clr Drug Dosing 65.05 mL/min Estimated GFR (MDRD) > 60 (>60) mL/min BUN/Creatinine Ratio 15.6 (14-18) Glucose 105 (74-106) mg/dL Calcium 9.0 (8.5-10.1) mg/dL Total Bilirubin 1.5 H (0.2-1.0) mg/dL AST 38 H (15-37) U/L ALT 39 (14-59) U/L Alkaline Phosphatase 120 H (46-116) U/L Total Protein 7.2 (6.4-8.2) g/dl Albumin 4.1 (3.4-5.0) g/dl Globulin 3.1 gm/dL Albumin/Globulin Ratio 1.3 (1-2) Urine Opiates Screen Negative (LUGKHL=379) Ur Buprenorphine Scrn Negative (CUTOFF=10) Ur Oxycodone Screen Negative (JNJ4KV=398) Urine Methadone Screen Negative (YSNLRV=838) Ur Propoxyphene Screen Negative (QQWJMV=617) Ur Barbiturates Screen Negative (DSEVCC=772) Ur Tricyclics Screen Negative (MKXTWC=664) Ur Phencyclidine Scrn Negative (CUTOFF=25) Ur Amphetamine Screen Negative (WISDIS=592) U Methamphetamines Scrn Negative (PGVHLV=421) U Benzodiazepines Scrn Presumptive positive H (POOBVQ=410) U Cocaine Metab Screen Negative (KAGUGR=514) U Marijuana (THC) Screen Negative (CUTOFF=50) Ethyl Alcohol 0.00 (0.00) gm% Medications Generic Name Dose Route Start Last Admin Trade Name Freq PRN Reason Stop Dose Admin Sodium Chloride 1,000 mls @ 999 mls/hr 09/06/18 06:00 09/06/18 07:36 Normal Saline IV 999 mls/hr ONETIME HÉCTOR Administration Sodium Chloride 10 ml 09/06/18 06:00 09/06/18 07:20 Saline Flush FLUSH 10 ml ASDIRECTED PRN Administration Keep Vein Open Discontinued Medications Generic Name Dose Route Start Last Admin Trade Name Freq PRN Reason Stop Dose Admin Chlordiazepoxide HCl 50 mg 09/06/18 08:50 Librium PO 09/06/18 08:51 ONETIME ONE Lorazepam 1 mg 09/06/18 06:06 09/06/18 07:34 Ativan IVPUSH 09/06/18 06:07 1 mg ONETIME ONE Administration Ondansetron HCl 4 mg 09/06/18 06:00 09/06/18 07:32 Zofran IVPUSH 09/06/18 06:01 4 mg ONETIME ONE Administration Re-Assessment/Re-Exam: 06:12. Change of shift. Will transfer care to Dr Castano. Have ordered IV fluid, Zofran 4 mg IV, Ativan 1 mg IV. It is expected that she will require more Ativan on an ongoing basis. May well be a candidate for medical detox. Appropriate labs ordered. Departure - Departure Disposition: Admitted As Inpatient 65 Clinical Impression: Alcohol withdrawal Qualifiers: Complication of substance-induced condition: uncomplicated Qualified Code(s): F10.230 - Alcohol dependence with withdrawal, uncomplicated - Discharge Information Referrals: Demian Limon PA [Primary Care Provider] - <Juan Castano - Last Filed: 09/06/18 08:58> COURSE, BEHAVIORAL HEALTH COMP - Course Medical Clearance: 09/06/18 08:17 Care of the patient assumed from Dr. Melo, after change of shift. Notified by Sasha CASTRO about [address] Melo had ordered NS at 999 ml/hr, but that the patient's veins will simply not sustain that, therefore she is currently receiving the IV fluid at 500 mL per hour, without difficulty. 09/06/18 08:42 Test results discussed with the patient. Her CBC is unremarkable. Her CMP is remarkable for a total bilirubin mildly elevated at 1.5. The remainder of her CMP is unremarkable. Review of prior medical records finds that her total bilirubin is not chronically elevated. Her alcohol level is 0. Her urine drug screen is positive for benzodiazepines. The urine sample was collected at 06:00, and she was given 1 mg of Ativan IV at 07:30. The patient does not appear to be tremulous, but she states that she is still feeling shaky. She describes that she had had nausea and vomiting which turned into dry heaves. She reports that she had some watery diarrhea, and she states that since around 07:30, she may have some visual hallucinations, as she sees a flower within a photograph moving. She denies auditory or tactile hallucinations. I asked the patient how it is possible that she could have benzodiazepines in her urine, as [place] PMPi indicates that the last refill for benzodiazepines that she had was for 2 tablets of diazepam 5 mg prescribed by Consuelo Julian on , but filled on 08/23/2018. The patient stated that these were prescribed to treat claustrophobia for the MRI of her cervical spine that she underwent on 08/23/2018, and she denies taking any benzodiazepines since. I pointed out that was 2 weeks ago, and would not still be in her urine. The patient stated that she didn't know how her urine drug screen was positive. 09/06/18 08:[address] Belcher at 08:43. He agreed to admit the patient as a full admission to the ICU. He requested that we give the patient 50 mg of Librium, once. Departure - Departure Time of Disposition: 08:49 Condition: Good - Discharge Information *PRESCRIPTION DRUG MONITORING PROGRAM REVIEWED*: Not Applicable *COPY OF PRESCRIPTION DRUG MONITORING REPORT IN PATIENT LEONEL: Not Applicable
[2018-09-06] MEDS ORDERED: chlordiazePOXIDE 25 MG Cap PO ONE (08:50)
[2018-09-06] MEDS ORDERED: Ondansetron 4 MG Tab.DIS PO PRN (10:52)
[2018-09-06] MEDS ORDERED: chlordiazePOXIDE 25 MG Cap PO PRN (10:55)
[2018-09-06] MEDS: Acetaminophen 325 MG Tab PO PRN ×3 (11:48→19:45)
[2018-09-06] MEDS: chlordiazePOXIDE 25 MG Cap PO SCH ×4 (11:48→22:00)
[2018-09-06] MEDS: Lactated Ringers 1,000 ML IV SCH ×2 (11:49→19:49)
--- NOTE | 2018-09-06 15:09 | PCM.HP ---
H&P History of Present Illness - General Date of Service: 09/06/18 Admit Problem/Dx: Admission Diagnosis/Problem Admission Diagnosis/Problem Alcohol abuse - History of Present Illness Initial Comments - Free Text/Narative: 52-year-old female with known history of chronic alcohol abuse presents to the emergency room after cutting back her alcohol for last 2 days. Patient was in rehabilitation for alcoholism in November and was sober until May. Starting in May she started back drinking heavily and is up to 1 pint of whiskey a day. She states yesterday she only had one shot left of her whiskey and she drink half of it in the morning half the afternoon. This morning she became very nauseous, vomiting, and came into the emergency room. Patient told the emergency room physician that she could see things and she knew that they weren' t supposed to be there. She has been in the emergency room 13 times this calendar year for various complaints including musculoskeletal issues. Patient was in the emergency room 24 times last year. She does states she's never had a withdrawal seizure but does feel shaky now. She also feels anxious. In the emergency room they did give her Ativan and then 50 mg of Librium. Patient also had a urine drug screen that was positive for benzodiazepines before she received benzodiazepines in the emergency room. She states that 2 weeks ago she received 2 diazepam before she had an MRI of her neck. She denies any other benzodiazepines. Right Middle Abdomen Pain Score (Numeric/FACES): 8 - Related Data Allergies/Adverse Reactions: Allergies Allergy/AdvReac Type Severity Reaction Status Date / Time diphenhydramine Allergy Anxiety Verified 09/06/18 10:59 [From Benadryl] ibuprofen Allergy Rash Verified 09/06/18 10:59 ketorolac [From Toradol] Allergy Rash Verified 09/06/18 10:59 Sulfa (Sulfonamide Allergy Rash Verified 09/06/18 10:59 Antibiotics) sumatriptan [From Imitrex] Allergy Anaphylactic Verified 09/06/18 10:59 Shock tramadol Allergy Rash Verified 09/06/18 10:59 Home Medications: Home Meds Omeprazole Magnesium [Prilosec Otc] 20 mg PO DAILY 12/01/17 [History] Levothyroxine [Synthroid] 50 mcg PO ACBREAKFAST tablet 12/21/17 [Rx] Venlafaxine [Effexor] 150 mg PO DAILY 01/28/18 [History] hydrOXYzine HCl [hydrOXYzine] 50 mg PO BID 01/28/18 [History] Ondansetron [Zofran ODT] 4 mg PO Q6H PRN #20 tab.dis 08/28/18 [Rx] Gabapentin [Neurontin] 300 mg PO BID 09/02/18 [History] Meloxicam 7.5 mg PO BID 09/06/18 [History] Orphenadrine [Norflex] 100 mg PO BID 09/06/18 [History] Past Medical History HEENT History: Reports: Allergic Rhinitis, Impaired Vision Other HEENT History: wears corrective lenses, dental infection Cardiovascular History: Reports: High Cholesterol Respiratory History: Reports: Sleep Apnea, Other (See Below) Other Respiratory History: left lung nodule, restrictive lung disease, cough, shortness of breath, pleural thickening, pleuritic chest pain Gastrointestinal History: Reports: Gastritis, GERD, Other (See Below) Other Gastrointestinal History: esophageal stricture, abdominal pain lower, elevated liver enzymes Genitourinary History: Reports: Urinary Incontinence, UTI, Recurrent, Other ( See Below) Other Genitourinary History: implantable device interstim RLQ- removed 08/16/17 ; interstim neurotransmitter placed jan 2018-left buttocks. [employer] History: Reports: Musculoskeletal History: Reports: Back Pain, Chronic, Neck Pain, Chronic, Osteoarthritis Neurological History: Reports: Migraines, Seizure, Other (See Below) Other Neuro History: patient reports "nervous tics", nerve pain, dizziness Psychiatric History: Reports: Addiction, Anxiety, Depression, Suicide Attempt, Other (See Below) Other Psychiatric History: drug overdose, personality disorder, alcohol withdrawal Endocrine/Metabolic History: Reports: Hypothyroidism, Obesity/BMI 30+ Other Endocrine/Metabolic History: reports hypothyroidism 15 years ago that corrected itself Hematologic History: Reports: None Immunologic History: Reports: None Oncologic (Cancer) History: Reports: None Dermatologic History: Reports: Other (See Below) Other Dermatologic History: skin lesion - Infectious Disease History Infectious Disease History: Reports: Chicken Pox - Past Surgical History HEENT Surgical History: Reports: None Cardiovascular Surgical History: Reports: None Respiratory Surgical History: Reports: Lung Biopsies GI Surgical History: Reports: Appendectomy, Cholecystectomy, Colonoscopy, EGD Female Surgical History: Reports: Hysterectomy, Salpingo-Oophorectomy, Tubal Ligation, Other (See Below) Other Female Surgeries/Procedures: bladder sling 09/2017 Endocrine Surgical History: Reports: None Musculoskeletal Surgical History: Reports: None Oncologic Surgical History: Reports: None Social & Family History - Family History Family Medical History: Noncontributory Cardiac: Reports: Bypass, CAD, Heart Failure - Tobacco Use Smoking Status *Q: Light Tobacco Smoker Years of Tobacco use: 30 Packs/Tins Daily: 0.1 - Caffeine Use Caffeine Use: Reports: Coffee, Soda, Tea - Alcohol Use Days Per Week of Alcohol Use: 7 Number of Drinks Per Day: 1 Total Drinks Per Week: 7 Date of Last Drink: 09/06/18 Time of Last Drink: 15:00 - Recreational Drug Use Recreational Drug Use: No - Living Situation & Occupation Living situation: Reports: , Other (with roomate) Occupation: Unemployed H&P Review of Systems - Review of Systems: Review Of Systems: ROS reveals no pertinent complaints other than HPI. Exam - Exam Exam: See Below - Vital Signs Vital Signs: Last Vital Signs Temp 98.5 F 09/06/18 12:00 Pulse 95 09/06/18 09:45 Resp 18 09/06/18 12:00 BP 142/101 H 09/06/18 12:00 Pulse Ox 96 09/06/18 12:00 Weight: 223 lb 3.2 oz - Exam Quality Assessment: No: Supplemental Oxygen General: Alert, Oriented HEENT: Conjunctiva Clear, Mucosa Moist & Mallory, Posterior Pharynx Clear Neck: Supple, Trachea Midline Lungs: Clear to Auscultation, Normal Respiratory Effort Cardiovascular: Regular Rate, Regular Rhythm GI/Abdominal Exam: Normal Bowel Sounds, Soft, Non-Tender, No Organomegaly, No Distention Skin: Warm, Dry, Intact Neurological: Cranial Nerves Intact Neuro Extensive - Mental Status: Alert, Oriented x3, Normal Cognition, Memory Intact Neuro Extensive - Motor, Sensory, Reflexes: CN II-XII Intact Psychiatric: Alert, Anxious, Withdrawal Symptoms (Mild tremulousness and mild tachycardia) - Patient Data Lab Results Last 24 hrs: Laboratory Results - last 24 hr 09/06/18 09/06/18 09/06/18 Range/Units 06:00 07:48 07:48 WBC 7.18 (3.98-10.04) K/mm3 RBC 4.70 (3.98-5.22) M/mm3 Hgb 14.6 D (11.2-15.7) gm/L Hct 43.9 (34.1-44.9) % MCV 93.4 (79.4-94.8) fl MCH 31.1 (25.6-32.2) pg MCHC 33.3 (32.2-35.5) g/dl RDW Std Deviation 43.6 (36.4-46.3) fL Plt Count 296 (182-369) K/mm3 MPV 9.6 (9.4-12.3) fl Neut % (Auto) 75.8 H (34.0-71.1) % Lymph % (Auto) 16.6 L (19.3-51.7) % [place] % (Auto) 5.4 (4.7-12.5) % Eos % (Auto) 1.7 (0.7-5.8) Baso % (Auto) 0.4 (0.1-1.2) % Neut # (Auto) 5.44 (1.56-6.13) K/mm3 Lymph # (Auto) 1.19 (1.18-3.74) K/mm3 [place] # (Auto) 0.39 H (0.24-0.36) K/mm3 Eos # (Auto) 0.12 (0.04-0.36) K/mm3 Baso # (Auto) 0.03 (0.01-0.08) K/mm3 Sodium 141 (136-145) mEq/L Potassium 3.6 (3.5-5.1) mEq/L Chloride 104 (98-107) mEq/L Carbon Dioxide 24 (21-32) mEq/L Anion Gap 16.6 H (5-15) BUN 14 (7-18) mg/dL Creatinine 0.9 (0.55-1.02) mg/dL Est Cr Clr Drug Dosing 65.05 mL/min Estimated GFR (MDRD) > 60 (>60) mL/min BUN/Creatinine Ratio 15.6 (14-18) Glucose 105 (74-106) mg/dL Calcium 9.0 (8.5-10.1) mg/dL Total Bilirubin 1.5 H (0.2-1.0) mg/dL AST 38 H (15-37) U/L ALT 39 (14-59) U/L Alkaline Phosphatase 120 H (46-116) U/L Total Protein 7.2 (6.4-8.2) g/dl Albumin 4.1 (3.4-5.0) g/dl Globulin 3.1 gm/dL Albumin/Globulin Ratio 1.3 (1-2) Urine Opiates Screen Negative (AMUKDZ=735) Ur Buprenorphine Scrn Negative (CUTOFF=10) Ur Oxycodone Screen Negative (ZDY9MG=842) Urine Methadone Screen Negative (CWAHNF=475) Ur Propoxyphene Screen Negative (MUONVE=863) Ur Barbiturates Screen Negative (RIHJSR=114) Ur Tricyclics Screen Negative (FHOZHH=760) Ur Phencyclidine Scrn Negative (CUTOFF=25) Ur Amphetamine Screen Negative (PDSOVT=752) U Methamphetamines Scrn Negative (QLECFT=443) U Benzodiazepines Scrn Presumptive positive H (OFRXHL=639) U Cocaine Metab Screen Negative (DMKNTM=818) U Marijuana (THC) Screen Negative (CUTOFF=50) Ethyl Alcohol 0.00 (0.00) gm% Result Diagrams: 09/06/18 07:48 09/06/18 07:48 - Problem List (1) Alcohol withdrawal syndrome SNOMED Code(s): 825326666 ICD Code: F10.239 - ALCOHOL DEPENDENCE WITH WITHDRAWAL, UNSPECIFIED Status : Acute Current Visit: Yes Qualifiers: Complication of substance-induced condition: uncomplicated Qualified Code(s ): F10.230 - Alcohol dependence with withdrawal, uncomplicated (2) Alcohol abuse SNOMED Code(s): 20390875 ICD Code: F10.10 - ALCOHOL ABUSE, UNCOMPLICATED Status: Acute Priority: High Current Visit: No (3) Anxiety SNOMED Code(s): 74108839 ICD Code: F41.9 - ANXIETY DISORDER, UNSPECIFIED Status: Acute Current Visit: No Problem List Initiated/Reviewed/Updated: Yes Orders Last 24hrs: Active Orders 24 hr Category Date Time Status Admission Status [Patient Status] [ADT] Routine ADT 09/06/18 09:21 Active Antiembolic Devices [RC] BID Care 09/06/18 10:52 Active Oxygen Therapy [RC] PRN Care 09/06/18 10:50 Active Peripheral IV Care [RC] Q2HR Care 09/06/18 06:03 Active Up ad Vannessa [RC] ASDIRECTED Care 09/06/18 10:50 Active VTE/DVT Education [RC] BID Care 09/06/18 10:50 Active Vital Signs [RC] Q4HR Care 09/06/18 10:50 Active Consult to Case Management/Cigarette Carton Sealer [CONS] Cons 09/06/18 10:50 Active Routine Regular Diet [DIET] Diet 09/06/18 Lunch Active CBC WITH AUTO DIFF [HEME] AM Lab 09/07/18 05:11 Ordered COMPREHENSIVE METABOLIC PN,CMP [CHEM] AM Lab 09/07/18 05:11 Ordered MAGNESIUM [CHEM] AM Lab 09/07/18 05:11 Ordered Acetaminophen [Tylenol] Med 09/06/18 10:50 Active 650 mg PO Q4H PRN Gabapentin [Neurontin] Med 09/06/18 21:00 Active 300 mg PO BID Lactated Ringers [Ringers, Lactated] 1,000 ml Med 09/06/18 11:00 Active IV ASDIRECTED Levothyroxine [Synthroid] Med 09/07/18 06:00 Active 50 mcg PO ACBREAKFAST Ondansetron [Zofran ODT] Med 09/06/18 10:52 Active 4 mg PO Q6H PRN Pantoprazole [ProTONIX] Med 09/07/18 06:00 Active 40 mg PO ACBREAKFAST Sodium Chloride 0.9% [Saline Flush] Med 09/06/18 06:00 Active 10 ml FLUSH ASDIRECTED PRN Venlafaxine [Effexor XR] Med 09/07/18 09:00 Active 150 mg PO DAILY chlordiazePOXIDE [Librium] Med 09/06/18 10:55 Active 25 mg PO Q1H PRN chlordiazePOXIDE [Librium] Med 09/06/18 11:00 Active See Protocol PO Q4H Antiembolic Hose [OM.PC] Per Unit Routine Oth 09/06/18 10:50 Ordered Heat Therapy [OM.PC] Routine Oth 09/06/18 10:58 Ordered Peripheral IV Insertion Adult [OM.PC] Stat Oth 09/06/18 06:00 Ordered Resuscitation Status Routine Resus Stat 09/06/18 10:50 Ordered Medication Orders Acetaminophen (Tylenol) 650 mg PO Q4H PRN PRN Reason: Pain (Mild 1-3)/fever Last Admin: 09/06/18 11:48 Dose: 650 mg Chlordiazepoxide HCl (Librium) 0 mg PO Q4H [facility]; Protocol Last Admin: 09/06/18 11:48 Dose: 50 mg Chlordiazepoxide HCl (Librium) 25 mg PO Q1H PRN PRN Reason: Withdrawal Symptoms Gabapentin (Neurontin) 300 mg PO BID [facility] Lactated Ringer's (Ringers, Lactated) 1,000 mls @ 125 mls/hr IV ASDIRECTED [facility] Last Admin: 09/06/18 11:49 Dose: 125 mls/hr Levothyroxine Sodium (Synthroid) 50 mcg PO ACBREAKFAST [facility] Ondansetron HCl (Zofran Odt) 4 mg PO Q6H PRN PRN Reason: Nausea\\vomiting Last Admin: 09/06/18 11:47 Dose: 4 mg Pantoprazole Sodium (Protonix) 40 mg PO ACBREAKFAST [facility] Sodium Chloride (Saline Flush) 10 ml FLUSH ASDIRECTED PRN PRN Reason: Keep Vein Open Last Admin: 09/06/18 07:20 Dose: 10 ml Venlafaxine HCl (Effexor Xr) 150 mg PO DAILY [facility] Assessment/Plan Comment:: Alcoholism with alcohol withdrawal * Librium 50 mg every 4 hours. Hold if CIWA-Ar < 8 or RASS < 0 * Librium 25 my every 1 hour prn CIWA-Ar > 8 or RASS > 0 * Consult Discharge planning and substance abuse counselling. * Thiamine 100 mg daily. Folate 1 mg daily Chronic neck pain * No opioids while getting benzodiazepines. * Tylenol for pain * Heat pad Anxiety * Continue home Effexor * Librium should help Follow CBC, CMP, Mg in AM. VTE prophylaxis: lovenox.
[2018-09-06] MEDS: Gabapentin 300 MG Cap PO SCH (22:00)
[2018-09-07] MEDS: chlordiazePOXIDE 25 MG Cap PO SCH ×5 (02:02→21:47)
[2018-09-07] MEDS: Lactated Ringers 1,000 ML IV SCH (03:49)
[2018-09-07] MEDS: Pantoprazole 40 MG Tab.CR PO SCH (06:10)
[2018-09-07] MEDS: Levothyroxine 50 MCG Tab PO SCH (06:10)
[2018-09-07] MEDS ORDERED: Magnesium Sulfate/Water 2 GM in Premix Bag 1 BAG IV ONE (08:30)
[2018-09-07] MEDS: Potassium Chloride 20 MEQ Tab.ER PO SCH ×2 (09:19→21:47)
[2018-09-07] MEDS: Venlafaxine 75 MG Cap.ER PO SCH (09:19)
[2018-09-07] MEDS: Magnesium Oxide 400 MG Tab PO SCH ×2 (09:19→21:47)
[2018-09-07] MEDS: Enoxaparin 40 MG/0.4 ML Syringe SUBCUT SCH (09:21)
[2018-09-07] MEDS: Gabapentin 300 MG Cap PO SCH ×2 (09:21→21:47)
--- NOTE | 2018-09-07 13:07 | PCM.PN ---
- General Info Date of Service: 09/07/18 Admission Dx/Problem (Free Text): Admission Diagnosis/Problem Admission Diagnosis/Problem Alcohol abuse Subjective Update: September 07, 2018 Patient continues to have anxiety, but only minimal withdrawal symptoms. She has tolerated the Librium 50 mg every 4 hours and has not needed any when necessary Librium. Her potassium was slightly low at 3.4 and her magnesium was slightly low at 1.6. - Review of Systems General: Reports: Fatigue HEENT: Reports: Headaches Pulmonary: Reports: No Symptoms. Denies: Shortness of Breath, Cough Cardiovascular: Reports: No Symptoms. Denies: Chest Pain, Dyspnea on Exertion Musculoskeletal: Reports: No Symptoms Skin: Reports: No Symptoms Neurological: Reports: Headache, Tingling - Patient Data Vitals - Most Recent: Last Vital Signs Temp 97.7 F 09/07/18 12:00 Pulse 71 09/07/18 04:31 Resp 16 09/07/18 12:00 BP 133/94 H 09/07/18 12:00 Pulse Ox 97 09/07/18 12:00 Weight - Most Recent: 226 lb I&O - Last 24 Hours: Intake & Output 09/06/18 09/07/18 09/07/18 22:59 06:59 14:59 Intake Total 1801 1739 60 Balance 1801 1739 60 Lab Results Last 24 Hours: Laboratory Results - last 24 hr 09/07/18 09/07/18 Range/Units 04:30 04:30 WBC 3.96 L (3.98-10.04) K/mm3 RBC 3.76 L (3.98-5.22) M/mm3 Hgb 11.7 D (11.2-15.7) gm/L Hct 35.8 (34.1-44.9) % MCV 95.2 H (79.4-94.8) fl MCH 31.1 (25.6-32.2) pg MCHC 32.7 (32.2-35.5) g/dl RDW Std Deviation 43.8 (36.4-46.3) fL Plt Count 237 (182-369) K/mm3 MPV 10.2 (9.4-12.3) fl Neut % (Auto) 52.8 (34.0-71.1) % Lymph % (Auto) 34.3 (19.3-51.7) % [place] % (Auto) 7.3 (4.7-12.5) % Eos % (Auto) 5.1 (0.7-5.8) Baso % (Auto) 0.5 (0.1-1.2) % Neut # (Auto) 2.09 (1.56-6.13) K/mm3 Lymph # (Auto) 1.36 (1.18-3.74) K/mm3 [place] # (Auto) 0.29 (0.24-0.36) K/mm3 Eos # (Auto) 0.20 (0.04-0.36) K/mm3 Baso # (Auto) 0.02 (0.01-0.08) K/mm3 Sodium 142 (136-145) mEq/L Potassium 3.4 L (3.5-5.1) mEq/L Chloride 106 (98-107) mEq/L Carbon Dioxide 26 (21-32) mEq/L Anion Gap 13.4 (5-15) BUN 14 (7-18) mg/dL Creatinine 0.7 (0.55-1.02) mg/dL Est Cr Clr Drug Dosing 83.63 mL/min Estimated GFR (MDRD) > 60 (>60) mL/min BUN/Creatinine Ratio 20.0 H (14-18) Glucose 106 (74-106) mg/dL Calcium 8.2 L (8.5-10.1) mg/dL Magnesium 1.6 L (1.8-2.4) mg/dl Total Bilirubin 0.8 (0.2-1.0) mg/dL AST 35 (15-37) U/L ALT 29 (14-59) U/L Alkaline Phosphatase 92 (46-116) U/L Total Protein 5.8 L (6.4-8.2) g/dl Albumin 3.1 L (3.4-5.0) g/dl Globulin 2.7 gm/dL Albumin/Globulin Ratio 1.2 (1-2) Med Orders - Current: Current Medications Acetaminophen (Tylenol) 650 mg PO Q4H PRN PRN Reason: Pain (Mild 1-3)/fever Last Admin: 09/06/18 19:45 Dose: 650 mg Chlordiazepoxide HCl (Librium) 25 mg PO Q1H PRN PRN Reason: Withdrawal Symptoms Chlordiazepoxide HCl (Librium) 50 mg PO Q6H [facility] Enoxaparin Sodium (Lovenox) 40 mg SUBCUT DAILY [facility] Last Admin: 09/07/18 09:21 Dose: 40 mg Folic Acid (Folic Acid) 1 mg PO DAILY [facility] Gabapentin (Neurontin) 300 mg PO BID [facility] Last Admin: 09/07/18 09:21 Dose: 300 mg Levothyroxine Sodium (Synthroid) 50 mcg PO ACBREAKFAST [facility] Last Admin: 09/07/18 06:10 Dose: 50 mcg Magnesium Oxide (Magnesium Oxide) 400 mg PO BID [facility] Last Admin: 09/07/18 09:19 Dose: 400 mg Ondansetron HCl (Zofran Odt) 4 mg PO Q6H PRN PRN Reason: Nausea\vomiting Last Admin: 09/06/18 11:47 Dose: 4 mg Pantoprazole Sodium (Protonix) 40 mg PO ACBREAKFAST [facility] Last Admin: 09/07/18 06:10 Dose: 40 mg Potassium Chloride (Klor-Con M20) 20 meq PO BID [facility] Stop: 09/07/18 21:01 Last Admin: 09/07/18 09:19 Dose: 20 meq Sodium Chloride (Saline Flush) 10 ml FLUSH ASDIRECTED PRN PRN Reason: Keep Vein Open Last Admin: 09/06/18 07:20 Dose: 10 ml Thiamine HCl (Vitamin B-1) 100 mg PO DAILY [facility] Venlafaxine HCl (Effexor Xr) 150 mg PO DAILY [facility] Last Admin: 09/07/18 09:19 Dose: 150 mg Discontinued Medications Chlordiazepoxide HCl (Librium) 50 mg PO ONETIME ONE Stop: 09/06/18 08:51 Last Admin: 09/06/18 09:09 Dose: 50 mg Chlordiazepoxide HCl (Librium) 0 mg PO Q4H [facility]; Protocol Last Admin: 09/07/18 10:06 Dose: 50 mg Sodium Chloride (Normal Saline) 1,000 mls @ 999 mls/hr IV ONETIME [facility] Last Admin: 09/06/18 07:36 Dose: 999 mls/hr Lactated Ringer's (Ringers, Lactated) 1,000 mls @ 125 mls/hr IV ASDIRECTED [facility] Last Admin: 09/07/18 03:49 Dose: 125 mls/hr Magnesium Sulfate 2 gm/ Premix 50 mls @ 25 mls/hr IV ONETIME ONE Stop: 09/07/18 10:29 Last Admin: 09/07/18 09:26 Dose: 25 mls/hr Lorazepam (Ativan) 1 mg IVPUSH ONETIME ONE Stop: 09/06/18 06:07 Last Admin: 09/06/18 07:34 Dose: 1 mg Ondansetron HCl (Zofran) 4 mg IVPUSH ONETIME ONE Stop: 09/06/18 06:01 Last Admin: 09/06/18 07:32 Dose: 4 mg - Exam Quality Assessment: No: Supplemental Oxygen General: Alert, Oriented HEENT: Pupils Equal, Pupils Reactive Lungs: Clear to Auscultation, Normal Respiratory Effort Cardiovascular: Regular Rate, Regular Rhythm GI/Abdominal Exam: Normal Bowel Sounds, Soft, Non-Tender, No Organomegaly, No Distention Extremities: Normal Inspection, Normal Range of Motion, Non-Tender, No Pedal Edema Skin: Warm, Dry, Intact Psy/Mental Status: Alert, Normal Affect, Normal Mood - Problem List & Annotations (1) Alcohol withdrawal syndrome SNOMED Code(s): 898847266 Code(s): F10.239 - ALCOHOL DEPENDENCE WITH WITHDRAWAL, UNSPECIFIED Status: Acute Current Visit: Yes Qualifiers: Complication of substance-induced condition: uncomplicated Qualified Code(s ): F10.230 - Alcohol dependence with withdrawal, uncomplicated (2) Alcohol abuse SNOMED Code(s): 58569465 Code(s): F10.10 - ALCOHOL ABUSE, UNCOMPLICATED Status: Acute Priority: High Current Visit: No (3) Anxiety SNOMED Code(s): 84837963 Code(s): F41.9 - ANXIETY DISORDER, UNSPECIFIED Status: Acute Current Visit: No - Problem List Review Problem List Initiated/Reviewed/Updated: Yes - My Orders Last 24 Hours: My Active Orders 09/06/18 21:00 Gabapentin [Neurontin] 300 mg PO BID 09/07/18 06:00 Levothyroxine [Synthroid] 50 mcg PO ACBREAKFAST Pantoprazole [ProTONIX] 40 mg PO ACBREAKFAST 09/07/18 09:00 Enoxaparin [Lovenox] 40 mg SUBCUT DAILY Magnesium Oxide 400 mg PO BID Potassium Chloride [Klor-Con M20] 20 meq PO BID Venlafaxine [Effexor XR] 150 mg PO DAILY 09/07/18 12:00 Folic Acid 1 mg PO DAILY Thiamine [Vitamin B-1] 100 mg PO DAILY 09/07/18 16:00 chlordiazePOXIDE [Librium] 50 mg PO Q6H - Plan Plan:: Alcoholism with alcohol withdrawal * Librium 50 mg every 6 hours. Hold if CIWA-Ar < 8 or RASS < 0 * Librium 25 my every 1 hour prn CIWA-Ar > 8 or RASS > 0 * Patient will start outpatient therapy after discharge * Thiamine 100 mg daily. Folate 1 mg daily Chronic neck pain * No opioids while getting benzodiazepines. * Tylenol for pain * Heat pad Anxiety * Continue home Effexor * Librium should help Follow BMP and Mg in AM. VTE prophylaxis: lovenox.
[2018-09-07] MEDS: Thiamine 100 MG Tab PO SCH (13:36)
[2018-09-07] MEDS: Folic Acid 1 MG Tab PO SCH (13:36)
[2018-09-08] MEDS: chlordiazePOXIDE 25 MG Cap PO SCH (04:02)
[2018-09-08] MEDS: Levothyroxine 50 MCG Tab PO SCH (06:23)
[2018-09-08] MEDS: Pantoprazole 40 MG Tab.CR PO SCH (06:24)
[2018-09-08] MEDS: Acetaminophen 325 MG Tab PO PRN (06:50)
[2018-09-08 08:05] VITALS: BP 129/90
[2018-09-08] MEDS ORDERED: chlordiazePOXIDE 25 MG Cap PO SCH (09:00)
[2018-09-08] MEDS: Gabapentin 300 MG Cap PO SCH (09:30)
[2018-09-08] MEDS: Thiamine 100 MG Tab PO SCH (09:30)
[2018-09-08] MEDS: Folic Acid 1 MG Tab PO SCH (09:30)
[2018-09-08] MEDS: Magnesium Oxide 400 MG Tab PO SCH (09:30)
[2018-09-08] MEDS: Enoxaparin 40 MG/0.4 ML Syringe SUBCUT SCH (09:30)
[2018-09-08] MEDS: Venlafaxine 75 MG Cap.ER PO SCH (09:36)
--- NOTE | 2018-09-08 11:02 | PCM.DCSUM1 ---
Discharge Summary - Hospital Course HPI Initial Comments: 52-year-old female with known history of chronic alcohol abuse presents to the emergency room after cutting back her alcohol for last 2 days. Patient was in rehabilitation for alcoholism in November and was sober until May. Starting in May she started back drinking heavily and is up to 1 pint of whiskey a day. She states yesterday she only had one shot left of her whiskey and she drink half of it in the morning half the afternoon. This morning she became very nauseous, vomiting, and came into the emergency room. Patient told the emergency room physician that she could see things and she knew that they weren' t supposed to be there. She has been in the emergency room 13 times this calendar year for various complaints including musculoskeletal issues. Patient was in the emergency room 24 times last year. She does states she's never had a withdrawal seizure but does feel shaky now. She also feels anxious. In the emergency room they did give her Ativan and then 50 mg of Librium. Patient also had a urine drug screen that was positive for benzodiazepines before she received benzodiazepines in the emergency room. She states that 2 weeks ago she received 2 diazepam before she had an MRI of her neck. She denies any other benzodiazepines. Brief History: Patient was put on a scheduled dose of Librium and did very well. Patient continues to have anxiety. Diagnosis: Stroke: No - Discharge Data Discharge Date: 09/08/18 Discharge Disposition: Home, Self-Care 01 Condition: Good - Discharge Diagnosis/Problem(s) (1) Alcohol withdrawal syndrome SNOMED Code(s): 937616205 ICD Code: F10.239 - ALCOHOL DEPENDENCE WITH WITHDRAWAL, UNSPECIFIED Status : Acute Current Visit: Yes Qualifiers: Complication of substance-induced condition: uncomplicated Qualified Code(s ): F10.230 - Alcohol dependence with withdrawal, uncomplicated (2) Alcohol abuse SNOMED Code(s): 50645369 ICD Code: F10.10 - ALCOHOL ABUSE, UNCOMPLICATED Status: Acute Priority: High Current Visit: No (3) Anxiety SNOMED Code(s): 67821754 ICD Code: F41.9 - ANXIETY DISORDER, UNSPECIFIED Status: Acute Current Visit: No - Patient Summary/Data Consults: Consultations 09/06/18 10:50 Consult to Case Management/Parcel [employer]or [CONS] Routine 09/08/18 09:45 OT Evaluation and Treatment [CONS] Routine PT Evaluation and Treatment [CONS] Routine - Patient Instructions Diet: Usual Diet as Tolerated Activity: As Tolerated Other/Special Instructions: Follow up with [facility] [place] tomorrow morning. - Discharge Plan *PRESCRIPTION DRUG MONITORING PROGRAM REVIEWED*: Not Applicable *COPY OF PRESCRIPTION DRUG MONITORING REPORT IN PATIENT LEONEL: Not Applicable Prescriptions/Med Rec: RX: chlordiazePOXIDE [Librium] 25 mg PO Q4H PRN #4 cap PRN Reason: Withdrawal Symptoms RX: Naltrexone 50 mg PO DAILY #30 tab Home Medications: Home Meds RX: Omeprazole Magnesium [Prilosec Otc] 20 mg PO DAILY 12/01/17 [History] RX: Levothyroxine [Synthroid] 50 mcg PO ACBREAKFAST tablet 12/21/17 [Rx] RX: Venlafaxine [Effexor] 150 mg PO DAILY 01/28/18 [History] RX: hydrOXYzine HCl [hydrOXYzine] 50 mg PO BID 01/28/18 [History] RX: Ondansetron [Zofran ODT] 4 mg PO Q6H PRN #20 tab.dis 08/28/18 [Rx] RX: Gabapentin [Neurontin] 300 mg PO BID 09/02/18 [History] RX: Meloxicam 7.5 mg PO BID 09/06/18 [History] RX: Orphenadrine [Norflex] 100 mg PO BID 09/06/18 [History] RX: Folic Acid 1 mg PO DAILY tablet 09/08/18 [Rx] RX: Naltrexone 50 mg PO DAILY #30 tab 09/08/18 [Rx] RX: Thiamine [Vitamin B-1] 100 mg PO DAILY tablet 09/08/18 [Rx] RX: chlordiazePOXIDE [Librium] 25 mg PO Q4H PRN #4 cap 09/08/18 [Rx] Oxygen Therapy Mode: Room Air Patient Handouts: Alcohol Withdrawal Syndrome, Steps to Quit Smoking Referrals: Demian Limon PA [Primary Care Provider] - - Discharge Summary/Plan Comment DC Time >30 min.: Yes Discharge Summary/Plan Comment: Patient is doing well. She does have follow-up for outpatient treatment and [facility]. Patient be discharged with Librium 25 mg 1 tab every 4 hours when necessary #4 for withdrawal symptoms. She will also be started on naltrexone 50 mg a day. She states that should this has worked in the past for her to help cravings. Patient understands if she has any worsening of symptoms including tremors or hallucinations she will return to the emergency room. She also understands that she is not to drink or take narcotic medication while on Librium or naltrexone. Patient voiced understanding. - General Info Date of Service: 09/08/18 Admission Dx/Problem (Free Text: Admission Diagnosis/Problem Admission Diagnosis/Problem Alcohol abuse Subjective Update: September 07, 2018 Patient continues to have anxiety, but only minimal withdrawal symptoms. She has tolerated the Librium 50 mg every 4 hours and has not needed any when necessary Librium. Her potassium was slightly low at 3.4 and her magnesium was slightly low at 1.6. September 08, 2018 Patient is doing well. She did have an episode today where she got tired while walking in the halls and sat down. She states she did not fall just became a little dizzy. Patient is requesting to go home because her ex- is in town for only one day. She has follow-up scheduled with [facility]. Functional Status: Reports: Pain Controlled - Review of Systems General: Reports: No Symptoms HEENT: Reports: No Symptoms Pulmonary: Reports: No Symptoms Cardiovascular: Reports: No Symptoms Gastrointestinal: Reports: No Symptoms - Patient Data Vitals - Most Recent: Last Vital Signs Temp 97.0 F 09/08/18 08:00 Pulse 85 09/08/18 03:59 Resp 16 09/08/18 08:00 BP 129/90 09/08/18 08:00 Pulse Ox 94 L 09/08/18 08:00 Weight - Most Recent: 229 lb I&O - Last 24 hours: Intake & Output 09/07/18 09/08/18 09/08/18 22:59 06:59 14:59 Intake Total 1988 1000 0 Balance 1988 1000 0 Lab Results - Last 24 hrs: Laboratory Results - last 24 hr 09/08/18 Range/Units 04:08 Sodium 141 (136-145) mEq/L Potassium 3.9 (3.5-5.1) mEq/L Chloride 105 (98-107) mEq/L Carbon Dioxide 28 (21-32) mEq/L Anion Gap 11.9 (5-15) BUN 11 (7-18) mg/dL Creatinine 0.6 (0.55-1.02) mg/dL Est Cr Clr Drug Dosing 97.57 mL/min Estimated GFR (MDRD) > 60 (>60) mL/min BUN/Creatinine Ratio 18.3 H (14-18) Glucose 97 (74-106) mg/dL Calcium 8.5 (8.5-10.1) mg/dL Magnesium 1.9 (1.8-2.4) mg/dl Med Orders - Current: Current Medications Acetaminophen (Tylenol) 650 mg PO Q4H PRN PRN Reason: Pain (Mild 1-3)/fever Last Admin: 09/08/18 06:50 Dose: 650 mg Chlordiazepoxide HCl (Librium) 25 mg PO Q1H PRN PRN Reason: Withdrawal Symptoms Chlordiazepoxide HCl (Librium) 25 mg PO Q4H [facility] Last Admin: 09/08/18 09:30 Dose: 25 mg Enoxaparin Sodium (Lovenox) 40 mg SUBCUT DAILY [facility] Last Admin: 09/08/18 09:30 Dose: 40 mg Folic Acid (Folic Acid) 1 mg PO DAILY [facility] Last Admin: 09/08/18 09:30 Dose: 1 mg Gabapentin (Neurontin) 300 mg PO BID [facility] Last Admin: 09/08/18 09:30 Dose: 300 mg Levothyroxine Sodium (Synthroid) 50 mcg PO ACBREAKFAST [facility] Last Admin: 09/08/18 06:23 Dose: 50 mcg Magnesium Oxide (Magnesium Oxide) 400 mg PO BID [facility] Last Admin: 09/08/18 09:30 Dose: 400 mg Ondansetron HCl (Zofran Odt) 4 mg PO Q6H PRN PRN Reason: Nausea\vomiting Last Admin: 09/06/18 11:47 Dose: 4 mg Pantoprazole Sodium (Protonix) 40 mg PO ACBREAKFAST [facility] Last Admin: 09/08/18 06:24 Dose: 40 mg Sodium Chloride (Saline Flush) 10 ml FLUSH ASDIRECTED PRN PRN Reason: Keep Vein Open Last Admin: 09/06/18 07:20 Dose: 10 ml Thiamine HCl (Vitamin B-1) 100 mg PO DAILY [facility] Last Admin: 09/08/18 09:30 Dose: 100 mg Venlafaxine HCl (Effexor Xr) 150 mg PO DAILY [facility] Last Admin: 09/08/18 09:36 Dose: 150 mg Discontinued Medications Chlordiazepoxide HCl (Librium) 50 mg PO ONETIME ONE Stop: 09/06/18 08:51 Last Admin: 09/06/18 09:09 Dose: 50 mg Chlordiazepoxide HCl (Librium) 0 mg PO Q4H [facility]; Protocol Last Admin: 09/07/18 10:06 Dose: 50 mg Chlordiazepoxide HCl (Librium) 50 mg PO Q6H [facility] Last Admin: 09/08/18 04:02 Dose: 50 mg Sodium Chloride (Normal Saline) 1,000 mls @ 999 mls/hr IV ONETIME HÉCTOR Last Admin: 09/06/18 07:36 Dose: 999 mls/hr Lactated Ringer's (Ringers, Lactated) 1,000 mls @ 125 mls/hr IV ASDIRECTED [facility] Last Admin: 09/07/18 03:49 Dose: 125 mls/hr Magnesium Sulfate 2 gm/ Premix 50 mls @ 25 mls/hr IV ONETIME ONE Stop: 09/07/18 10:29 Last Admin: 09/07/18 09:26 Dose: 25 mls/hr Lorazepam (Ativan) 1 mg IVPUSH ONETIME ONE Stop: 09/06/18 06:07 Last Admin: 09/06/18 07:34 Dose: 1 mg Ondansetron HCl (Zofran) 4 mg IVPUSH ONETIME ONE Stop: 09/06/18 06:01 Last Admin: 09/06/18 07:32 Dose: 4 mg Potassium Chloride (Klor-Con M20) 20 meq PO BID [facility] Stop: 09/07/18 21:01 Last Admin: 09/07/18 21:47 Dose: 20 meq - Exam General: Reports: Alert, Oriented HEENT: Reports: Pupils Equal Neck: Reports: Supple Lungs: Reports: Clear to Auscultation, Normal Respiratory Effort Cardiovascular: Reports: Regular Rate, Regular Rhythm GI/Abdominal Exam: Normal Bowel Sounds, Soft, Non-Tender, No Distention Back Exam: Reports: Normal Inspection Extremities: Normal Inspection, No Pedal Edema Skin: Reports: Warm, Dry, Intact Neurological: Reports: No New Focal Deficit Psy/Mental Status: Reports: Alert, Normal Affect, Normal Mood
== END 2018-09-08 11:44 | disposition home or self-care (01) | DRG 897 ==
LOC: JD.ED 05:24 → JD.ICU 09:21
PROVIDERS: ADMIT Family Medicine; ATTEND Family Medicine
PROC: HZ2ZZZZ Detoxification Services for Substance Abuse Treatment (ICD-10-PCS; principal; 2018-09-06)
DX: F10.230 Alcohol dependence with withdrawal, uncomplicated (principal); H54.7 Unspecified visual loss; J30.9 Allergic rhinitis, unspecified; E78.00 Pure hypercholesterolemia, unspecified; K21.9 Gastro-esophageal reflux disease without esophagitis; G89.29 Other chronic pain; M54.9 Dorsalgia, unspecified; M19.91 Primary osteoarthritis, unspecified site; G43.909 Migraine, unspecified, not intractable, without status migrainosus; F41.9 Anxiety disorder, unspecified; F17.210 Nicotine dependence, cigarettes, uncomplicated; F32.9 Major depressive disorder, single episode, unspecified; E03.9 Hypothyroidism, unspecified; M54.2 Cervicalgia; E66.9 Obesity, unspecified; Z90.49 Acquired absence of other specified parts of digestive tract; Z90.89 Acquired absence of other organs; Z88.1 Allergy status to other antibiotic agents; Z88.8 Allergy status to other drugs, medicaments and biological substances; Z79.899 Other long term (current) drug therapy; Z68.38 Body mass index [BMI] 38.0-38.9, adult
CPT/HCPCS: 36415; 80048; 80053; 80306; 83735; 85025; 96361; 96374; 96375; 97165-GO; 99284; 99285-25; A9270-GY; G0480; J1650; J2060; J2405; J3475; J7040; J7120

== ENCOUNTER 2018-09-09 12:27 | Emergency (ER) | payer MEDICAID ==
[2018-09-09 12:41] VITALS: BP 132/87
[2018-09-09] MEDS ORDERED: chlordiazePOXIDE 25 MG Cap PO ONE (13:53)
--- NOTE | 2018-09-09 14:00 | EDM.PDOCBH ---
ED HPI GENERAL MEDICAL PROBLEM - General Chief Complaint: Drug or Alcohol Abuse Stated Complaint: LIGHTHEADED,NOT FEELING WELL Time Seen by Provider: 09/09/18 12:45 Source of Information: Reports: Patient History Limitations: Reports: No Limitations - History of Present Illness INITIAL COMMENTS - FREE TEXT/NARRATIVE: The patient presents because she is not feeling well. She was admitted a few days ago for alcohol withdrawal. She was just released yesterday. She went to [facility] and they thought she may need to be admitted again. She is shaking and has nausea. She has no chest pain or abdominal pain. Onset: Gradual Duration: Day(s): Severity: Moderate Improves with: Reports: None Worsens with: Reports: None Associated Symptoms: Reports: Nausea/Vomiting Frontal Headache Pain Score (Numeric/FACES): 10 - Related Data Allergies Allergy/AdvReac Type Severity Reaction Status Date / Time ibuprofen Allergy Rash Verified 09/06/18 10:59 ketorolac [From Toradol] Allergy Rash Verified 09/06/18 10:59 Sulfa (Sulfonamide Allergy Rash Verified 09/06/18 10:59 Antibiotics) sumatriptan [From Imitrex] Allergy Anaphylactic Verified 09/06/18 10:59 Shock tramadol Allergy Rash Verified 09/06/18 10:59 diphenhydramine AdvReac Anxiety Verified 09/07/18 07:51 [From Benadryl] Home Meds: Home Meds Omeprazole Magnesium [Prilosec Otc] 20 mg PO DAILY 12/01/17 [History] Levothyroxine [Synthroid] 50 mcg PO ACBREAKFAST tablet 12/21/17 [Rx] Venlafaxine [Effexor] 150 mg PO DAILY 01/28/18 [History] hydrOXYzine HCl [hydrOXYzine] 50 mg PO BID 01/28/18 [History] Ondansetron [Zofran ODT] 4 mg PO Q6H PRN #20 tab.dis 08/28/18 [Rx] Gabapentin [Neurontin] 300 mg PO BID 09/02/18 [History] Meloxicam 7.5 mg PO BID 09/06/18 [History] Orphenadrine [Norflex] 100 mg PO BID 09/06/18 [History] Folic Acid 1 mg PO DAILY tablet 09/08/18 [Rx] Naltrexone 50 mg PO DAILY #30 tab 09/08/18 [Rx] Thiamine [Vitamin B-1] 100 mg PO DAILY tablet 09/08/18 [Rx] chlordiazePOXIDE [Librium] 25 mg PO Q4H PRN #4 cap 09/08/18 [Rx] chlordiazePOXIDE [Librium] 25 mg PO TID PRN #10 cap 09/09/18 [Rx] Past Medical History HEENT History: Reports: Allergic Rhinitis, Impaired Vision Other HEENT History: wears corrective lenses, dental infection Cardiovascular History: Reports: High Cholesterol Respiratory History: Reports: Sleep Apnea, Other (See Below) Other Respiratory History: left lung nodule, restrictive lung disease, cough, shortness of breath, pleural thickening, pleuritic chest pain Gastrointestinal History: Reports: Gastritis, GERD, Other (See Below) Other Gastrointestinal History: esophageal stricture, abdominal pain lower, elevated liver enzymes Genitourinary History: Reports: Urinary Incontinence, UTI, Recurrent, Other ( See Below) Other Genitourinary History: implantable device interstim RLQ- removed 08/16/17 ; interstim neurotransmitter placed jan 2018-left buttocks. 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: Musculoskeletal History: Reports: Back Pain, Chronic, Neck Pain, Chronic, Osteoarthritis Neurological History: Reports: Migraines, Seizure, Other (See Below) Other Neuro History: patient reports "nervous tics", nerve pain, dizziness Psychiatric History: Reports: Addiction, Anxiety, Depression, Suicide Attempt, Other (See Below) Other Psychiatric History: drug overdose, personality disorder, alcohol withdrawal Endocrine/Metabolic History: Reports: Hypothyroidism, Obesity/BMI 30+ Other Endocrine/Metabolic History: reports hypothyroidism 15 years ago that corrected itself Hematologic History: Reports: None Immunologic History: Reports: None Oncologic (Cancer) History: Reports: None Dermatologic History: Reports: Other (See Below) Other Dermatologic History: skin lesion - Infectious Disease History Infectious Disease History: Reports: Chicken Pox - Past Surgical History HEENT Surgical History: Reports: None Cardiovascular Surgical History: Reports: None Respiratory Surgical History: Reports: Lung Biopsies GI Surgical History: Reports: Appendectomy, Cholecystectomy, Colonoscopy, EGD Female Surgical History: Reports: Hysterectomy, Salpingo-Oophorectomy, Tubal Ligation, Other (See Below) Other Female Surgeries/Procedures: bladder sling 09/2017 Endocrine Surgical History: Reports: None Musculoskeletal Surgical History: Reports: None Oncologic Surgical History: Reports: None Social & Family History - Family History Family Medical History: Noncontributory Cardiac: Reports: Bypass, CAD, Heart Failure - Tobacco Use Smoking Status *Q: Current Every Day Smoker Years of Tobacco use: 10 Packs/Tins Daily: 0.3 - Caffeine Use Caffeine Use: Reports: Coffee, Tea - Recreational Drug Use Recreational Drug Use: No - Living Situation & Occupation Living situation: Reports: , Other (with roomate) Occupation: Unemployed ED ROS GENERAL - Review of Systems Review Of Systems: See Below Constitutional: Reports: No Symptoms HEENT: Reports: No Symptoms Respiratory: Reports: No Symptoms Cardiovascular: Reports: No Symptoms Endocrine: Reports: No Symptoms GI/Abdominal: Reports: No Symptoms : Reports: No Symptoms Musculoskeletal: Reports: No Symptoms ED EXAM, BEHAVIORAL HEALTH - Physical Exam Exam: See Below Exam Limited By: No Limitations General Appearance: Alert, No Apparent Distress Ears: Normal External Exam Nose: Normal Inspection Head: Atraumatic, Normocephalic Neck: Normal Inspection Respiratory/Chest: No Respiratory Distress, Lungs Clear, Normal Breath Sounds Cardiovascular: Regular Rate, Rhythm, No Edema, No Murmur GI/Abdominal: Soft, Non-Tender, No Organomegaly, No Mass COURSE, BEHAVIORAL HEALTH COMP - Course Vital Signs: Last Vital Signs Temp 98.5 F 09/09/18 12:40 Pulse 86 09/09/18 12:40 Resp 20 09/09/18 12:40 BP 132/87 09/09/18 12:40 Pulse Ox 96 09/09/18 12:40 Orders, Labs, Meds: Active Orders 24 hr Category Date Time Status chlordiazePOXIDE [Librium] Med 09/09/18 13:53 Once 25 mg PO ONETIME ONE Re-Assessment/Re-Exam: I ordered a dose of librium and I will give her a few more to get her over the weekend. Departure - Departure Time of Disposition: 14:00 Disposition: Home, Self-Care 01 Condition: Good Clinical Impression: Alcohol withdrawal syndrome Qualifiers: Complication of substance-induced condition: uncomplicated Qualified Code(s): F10.230 - Alcohol dependence with withdrawal, uncomplicated - Discharge Information *PRESCRIPTION DRUG MONITORING PROGRAM REVIEWED*: No *COPY OF PRESCRIPTION DRUG MONITORING REPORT IN PATIENT LEONEL: No Prescriptions: chlordiazePOXIDE [Librium] 25 mg PO TID PRN #10 cap PRN Reason: Anxiety Referrals: Demian Limon PA [Primary Care Provider] - Additional Instructions: Take your medication as prescribed. Follow up with [facility] on Wednesday. Please return if you are worse. - My Orders Last 24 Hours: My Active Orders 09/09/18 13:53 chlordiazePOXIDE [Librium] 25 mg PO ONETIME ONE - Assessment/Plan Last 24 Hours: My Active Orders 09/09/18 13:53 chlordiazePOXIDE [Librium] 25 mg PO ONETIME ONE
== END 2018-09-09 14:05 | disposition home or self-care (01) ==
LOC: JD.ED 12:27
DX: F10.230 Alcohol dependence with withdrawal, uncomplicated (principal); F17.210 Nicotine dependence, cigarettes, uncomplicated; F41.9 Anxiety disorder, unspecified; F32.9 Major depressive disorder, single episode, unspecified; E03.9 Hypothyroidism, unspecified; E78.00 Pure hypercholesterolemia, unspecified; K21.9 Gastro-esophageal reflux disease without esophagitis; Z79.899 Other long term (current) drug therapy; Z88.6 Allergy status to analgesic agent; Z88.2 Allergy status to sulfonamides; Z88.8 Allergy status to other drugs, medicaments and biological substances
CPT/HCPCS: 99283; A9270

== ENCOUNTER 2018-09-10 12:18 | Emergency (ER) | payer MEDICAID ==
[2018-09-10 12:24] VITALS: BP 128/82
[2018-09-10] MEDS ORDERED: levETIRAcetam 500 MG in Sodium Chloride 0.9% 100 ML IV ONE (12:26)
[2018-09-10] MEDS ORDERED: LORazepam 2 MG/ML SDV IVPUSH ONE ×2 (12:26→15:31)
[2018-09-10] MEDS ORDERED: Thiamine 200 MG/2 ML MDV IVPUSH ONE (12:31)
--- NOTE | 2018-09-10 12:31 | EDM.PDOC ---
ED HPI GENERAL MEDICAL PROBLEM - General Chief Complaint: Neurological Problem Stated Complaint: [facility] Time Seen by Provider: 09/10/18 12:26 Source of Information: Reports: Patient, EMS History Limitations: Reports: No Limitations - History of Present Illness INITIAL COMMENTS - FREE TEXT/NARRATIVE: 52-year-old female presents to the ED after apparently suffering 3 grand mal convulsions in the last 3 hours. Patient is a known alcoholic with last intake of alcohol on September 05. She was admitted the hospital until September 07. She came back to the ED yesterday and did receive a prescription for Librium 25 mg tablets which she has been taking. In spite of this she apparently had 3 grand mal convulsions this morning. The last one was witnessed by farmworker general staff in the ambulance en route to the hospital. She received Versed 10 mg intranasally since the cannot establish an IV. Patient initial seizure occurred in her kitchen and she fell hard to the floor striking the back of her head on a linoleum covered floor. She has a severe problem with her neck with degenerative disc disease. She has diffuse neck pain at this time as well. She is alert and oriented although generally weak. Speech is not dysarthric. Paramedics witnessed seizure that lasted less than a minute. Onset: Today Onset Date: 09/10/18 Onset Time: 10:30 (Approximate time her first seizure) Duration: Hour(s): Location: Reports: Head, Neck (Hematoma occipital scalp diffuse cervical neck pain), Other (No extremity pain no rib pain) Quality: Reports: Ache, Throbbing Severity: Moderate (Moderate to severe headache) Improves with: Reports: None Worsens with: Reports: None Context: Reports: Other (Reported spontaneous 3 grand mal convulsions this morning. Suspect they'll to be due to alcohol withdrawal). Denies: Activity, Exercise, Lifting, Sick Contact, Trauma Associated Symptoms: Reports: Diaphoresis, Headaches, Loss of Appetite, Malaise , Weakness. Denies: Confusion, Chest Pain, Cough, cough w sputum, Fever/Chills , Nausea/Vomiting, Rash, Seizure, Shortness of Breath, Syncope Treatments CLIENT SUCCESS DIRECTOR: Reports: Other (see below) (She states she did take her Librium 25 mg this morning.) Headache Pain Score (Numeric/FACES): 9 - Related Data Allergies Allergy/AdvReac Type Severity Reaction Status Date / Time ibuprofen Allergy Rash Verified 09/10/18 12:24 ketorolac [From Toradol] Allergy Rash Verified 09/10/18 12:24 Sulfa (Sulfonamide Allergy Rash Verified 09/10/18 12:24 Antibiotics) sumatriptan [From Imitrex] Allergy Anaphylactic Verified 09/10/18 12:24 Shock tramadol Allergy Rash Verified 09/10/18 12:24 diphenhydramine AdvReac Anxiety Verified 09/10/18 12:24 [From Benadryl] Home Meds: Home Meds Omeprazole Magnesium [Prilosec Otc] 20 mg PO DAILY 12/01/17 [History] Levothyroxine [Synthroid] 50 mcg PO ACBREAKFAST tablet 12/21/17 [Rx] Venlafaxine [Effexor] 150 mg PO DAILY 01/28/18 [History] hydrOXYzine HCl [hydrOXYzine] 50 mg PO BID 01/28/18 [History] Ondansetron [Zofran ODT] 4 mg PO Q6H PRN #20 tab.dis 08/28/18 [Rx] Gabapentin [Neurontin] 300 mg PO BID 09/02/18 [History] Meloxicam 7.5 mg PO BID 09/06/18 [History] Orphenadrine [Norflex] 100 mg PO BID 09/06/18 [History] Folic Acid 1 mg PO DAILY tablet 09/08/18 [Rx] Naltrexone 50 mg PO DAILY #30 tab 09/08/18 [Rx] Thiamine [Vitamin B-1] 100 mg PO DAILY tablet 09/08/18 [Rx] chlordiazePOXIDE [Librium] 25 mg PO Q4H PRN #4 cap 09/08/18 [Rx] chlordiazePOXIDE [Librium] 25 mg PO TID PRN #10 cap 09/09/18 [Rx] levETIRAcetam [Keppra] 500 mg PO BID #60 tablet 09/10/18 [Rx] oxyCODONE HCl/Acetaminophen [Percocet 5-325 mg Tablet] 1 - 2 each PO Q4H PRN # 15 tablet 09/10/18 [Rx] Past Medical History HEENT History: Reports: Allergic Rhinitis, Impaired Vision Other HEENT History: wears corrective lenses, dental infection Cardiovascular History: Reports: High Cholesterol Respiratory History: Reports: Sleep Apnea, Other (See Below) Other Respiratory History: left lung nodule, restrictive lung disease, cough, shortness of breath, pleural thickening, pleuritic chest pain Gastrointestinal History: Reports: Gastritis, GERD, Other (See Below) Other Gastrointestinal History: esophageal stricture, abdominal pain lower, elevated liver enzymes Genitourinary History: Reports: Urinary Incontinence, UTI, Recurrent, Other ( See Below) Other Genitourinary History: implantable device interstim RLQ- removed 08/16/17 ; interstim neurotransmitter placed jan 2018-left buttocks. HUMAN RESOURCE ADVISOR History: Reports: Musculoskeletal History: Reports: Back Pain, Chronic, Neck Pain, Chronic (Has degenerative disc disease at C5-C6 and C6-C7 levels. Is awaiting neurosurgical consult with in [facility] for possible fusion. Currently she is having radiculopathy into both upper extremities worse on the left as compared to the right down to mid forearm on my left side and to the elbow on the right side), Osteoarthritis Neurological History: Reports: Migraines, Seizure, Other (See Below) Other Neuro History: patient reports "nervous tics", nerve pain, dizziness Psychiatric History: Reports: Addiction, Anxiety, Depression, Suicide Attempt, Other (See Below) Other Psychiatric History: drug overdose, personality disorder, alcohol withdrawal Endocrine/Metabolic History: Reports: Hypothyroidism, Obesity/BMI 30+ Other Endocrine/Metabolic History: reports hypothyroidism 15 years ago that corrected itself Hematologic History: Reports: None Immunologic History: Reports: None Oncologic (Cancer) History: Reports: None Dermatologic History: Reports: Other (See Below) Other Dermatologic History: skin lesion - Infectious Disease History Infectious Disease History: Reports: Chicken Pox - Past Surgical History HEENT Surgical History: Reports: None Cardiovascular Surgical History: Reports: None Respiratory Surgical History: Reports: Lung Biopsies GI Surgical History: Reports: Appendectomy, Cholecystectomy, Colonoscopy, EGD Female Surgical History: Reports: Hysterectomy, Salpingo-Oophorectomy, Tubal Ligation, Other (See Below) Other Female Surgeries/Procedures: bladder sling 09/2017 Endocrine Surgical History: Reports: None Musculoskeletal Surgical History: Reports: None Oncologic Surgical History: Reports: None Social & Family History - Family History Family Medical History: Noncontributory Cardiac: Reports: Bypass, CAD, Heart Failure - Tobacco Use Smoking Status *Q: Never Smoker - Caffeine Use Caffeine Use: Reports: Coffee, Tea - Recreational Drug Use Recreational Drug Use: No - Living Situation & Occupation Living situation: Reports: , Other (with roomate) Occupation: Unemployed ED ROS GENERAL - Review of Systems Review Of Systems: See Below Constitutional: Reports: Malaise, Weakness, Fatigue, Decreased Appetite. Denies : Fever, Chills HEENT: Reports: Glasses. Denies: Vertigo, Vision Change Respiratory: Reports: No Symptoms Cardiovascular: Reports: No Symptoms Endocrine: Reports: Fatigue GI/Abdominal: Reports: Decreased Appetite, Nausea. Denies: Vomiting : Reports: Frequency Musculoskeletal: Reports: Neck Pain, Back Pain (Chronic cervical neck pain due to degenerative disc disease. Reticulocyte low back pain.), Joint Pain (Knees hips and shoulders at times.) Skin: Reports: Bruising Neurological: Reports: Dizziness, Headache, Difficulty Walking (Findings that her gait is mildly ataxic at home.), Weakness, Gait Disturbance. Denies: Confusion (Bruises fairly easily.), Numbness, Syncope, Tingling (Severe headaches and she's had the seizure.), Trouble Speaking, Change in Speech Psychiatric: Reports: Anxiety, Mood Lability Hematologic/Lymphatic: Reports: Easy Bruising Immunologic: Reports: No Symptoms - Physical Exam Exam: See Below Exam Limited By: No Limitations General Appearance: Alert, Anxious, Moderate Distress, Other (She is mildly postictal. Weakness in her extremities. Speech is not dysarthric. No signs that she has bit her tongue. She did not lose control of her bowel or bladder.) Eye Exam: Bilateral Eye: Normal Fundi, Nystagmus (No nystagmus), PERRL (No gaze palsy) Ears: Normal TMs Throat/Mouth: Normal Inspection, Normal Lips, Normal Teeth, Normal Oropharynx, Normal Voice. No: Evidence of Tongue Biting Head Exam: Scalp Hematoma ( occipital scalp hematoma), Scalp Tenderness Neck: Limited Range of Motion, Tender Lateral, Tender Midline, Other (She has chronic degenerative disc disease in her neck). No: Lymphadenopathy (L), Lymphadenopathy (R) Respiratory/Chest: No Respiratory Distress, Lungs Clear, Normal Breath Sounds, No Accessory Muscle Use, Other (No pain on compression of the ribs or sternum.) Cardiovascular: Normal Peripheral Pulses, Regular Rate, Rhythm, No Edema, No Gallop, No Murmur, No Rub GI/Abdominal: Normal Bowel Sounds, Soft, Non-Tender, No Organomegaly, No Mass, Pelvis Stable, Rebound, Other (Mildly obese.) Neuro Exam (Abbreviated): Alert, Oriented, CN II-XII Intact, Normal Cognition, Other (Weakness in all extremities appreciated. She can lift them up from the gurney but she cannot hold them against gravity for more than 2 seconds.) DTR: 0: Bicep (R), Bicep (L), Patella (R), Patella (L), Achilles (R), Achilles ( L) (Patient is areflexic) Back Exam: Normal Inspection, Decreased Range of Motion (Pain in her lower back when we see etc.), Other. No: CVA Tenderness (L), CVA Tenderness (R) Extremities: Normal Inspection (No obvious abrasions or contusions.), Non-Tender , Other (No outward signs of and extremity trauma on examination with full internal/external rotation of her hips no injuries to the knees ankles elbows shoulders or wrists or hand.) Psychiatric: Anxious, Depressed Mood Skin Exam: Warm ( Peers were recent Lovenox shot was given.), Dry, Intact, Normal Color, Other (Ecchymoses left abdominal wall.) Course - Vital Signs Last Recorded V/S: Last Vital Signs Temp 36.6 C 09/10/18 12:20 Pulse 87 09/10/18 12:20 Resp 16 09/10/18 12:20 BP 128/82 09/10/18 12:20 Pulse Ox 96 09/10/18 12:20 - Orders/Labs/Meds Orders: Active Orders 24 hr Category Date Time Status Cervical Spine wo Cont [CT] Stat Exams 09/10/18 12:30 Taken Head wo Cont [CT] Stat Exams 09/10/18 12:28 Taken Dextrose 5%-0.9% NaCl [Dextrose 5%-Normal Saline] 1,000 Med 09/10/18 13:00 Active ml IV ASDIRECTED Medication Orders Dextrose/Sodium Chloride (Dextrose 5%-Normal Saline) 1,000 mls @ 125 mls/hr IV ASDIRECTED HÉCTOR Last Admin: 09/10/18 13:02 Dose: 125 mls/hr Labs: Laboratory Tests 09/10/18 09/10/18 09/10/18 Range/Units 13:00 13:00 13:58 WBC 5.15 (3.98-10.04) K/mm3 RBC 3.76 L (3.98-5.22) M/mm3 Hgb 11.7 (11.2-15.7) gm/L Hct 36.8 (34.1-44.9) % MCV 97.9 H (79.4-94.8) fl MCH 31.1 (25.6-32.2) pg MCHC 31.8 L (32.2-35.5) g/dl RDW Std Deviation 46.0 (36.4-46.3) fL Plt Count 230 (182-369) K/mm3 MPV 10.1 (9.4-12.3) fl Neutrophils % (Manual) 64 H (40-60) % Band Neutrophils % 0 (0-10) % Lymphocytes % (Manual) 28 (20-40) % Atypical Lymphs % 0 % Monocytes % (Manual) 4 (2-10) % Eosinophils % (Manual) 4 (0.7-5.8) % Basophils % (Manual) 0 L (0.1-1.2) Platelet Estimate Adequate RBC Morph Comment Normal PT (9.5-12.1) SECONDS INR APTT (24-31) SECONDS Sodium 142 (136-145) mEq/L Potassium 3.4 L (3.5-5.1) mEq/L Chloride 107 (98-107) mEq/L Carbon Dioxide 25 (21-32) mEq/L Anion Gap 13.4 (5-15) BUN 12 (7-18) mg/dL Creatinine 0.7 (0.55-1.02) mg/dL Est Cr Clr Drug Dosing 90.38 mL/min Estimated GFR (MDRD) > 60 (>60) mL/min BUN/Creatinine Ratio 17.1 (14-18) Glucose 126 H (74-106) mg/dL Lactic Acid 0.9 (0.4-2.0) mmol/L Calcium 9.1 (8.5-10.1) mg/dL Magnesium 1.8 (1.8-2.4) mg/dl Total Bilirubin 0.3 (0.2-1.0) mg/dL AST 61 H (15-37) U/L ALT 57 (14-59) U/L Alkaline Phosphatase 95 (46-116) U/L Creatine Kinase 36 (26-192) U/L Total Protein 6.3 L (6.4-8.2) g/dl Albumin 3.5 (3.4-5.0) g/dl Globulin 2.8 gm/dL Albumin/Globulin Ratio 1.3 (1-2) Lipase 255 (73-393) U/L Ethyl Alcohol 0.00 (0.00) gm% Ketones (0.0-0.3) mM 09/10/18 09/10/18 Range/Units 13:58 13:58 WBC (3.98-10.04) K/mm3 RBC (3.98-5.22) M/mm3 Hgb (11.2-15.7) gm/L Hct (34.1-44.9) % MCV (79.4-94.8) fl MCH (25.6-32.2) pg MCHC (32.2-35.5) g/dl RDW Std Deviation (36.4-46.3) fL Plt Count (182-369) K/mm3 MPV (9.4-12.3) fl Neutrophils % (Manual) (40-60) % Band Neutrophils % (0-10) % Lymphocytes % (Manual) (20-40) % Atypical Lymphs % % Monocytes % (Manual) (2-10) % Eosinophils % (Manual) (0.7-5.8) % Basophils % (Manual) (0.1-1.2) Platelet Estimate RBC Morph Comment PT 10.3 (9.5-12.1) SECONDS INR 0.94 APTT 25 (24-31) SECONDS Sodium (136-145) mEq/L Potassium (3.5-5.1) mEq/L Chloride (98-107) mEq/L Carbon Dioxide (21-32) mEq/L Anion Gap (5-15) BUN (7-18) mg/dL Creatinine (0.55-1.02) mg/dL Est Cr Clr Drug Dosing mL/min Estimated GFR (MDRD) (>60) mL/min BUN/Creatinine Ratio (14-18) Glucose (74-106) mg/dL Lactic Acid (0.4-2.0) mmol/L Calcium (8.5-10.1) mg/dL Magnesium (1.8-2.4) mg/dl Total Bilirubin (0.2-1.0) mg/dL AST (15-37) U/L ALT (14-59) U/L Alkaline Phosphatase (46-116) U/L Creatine Kinase (26-192) U/L Total Protein (6.4-8.2) g/dl Albumin (3.4-5.0) g/dl Globulin gm/dL Albumin/Globulin Ratio (1-2) Lipase (73-393) U/L Ethyl Alcohol (0.00) gm% Ketones 0.06 (0.0-0.3) mM Meds: Medications Generic Name Dose Route Start Last Admin Trade Name Freq PRN Reason Stop Dose Admin Dextrose/Sodium Chloride 1,000 mls @ 125 mls/hr 09/10/18 13:00 09/10/18 13:02 Dextrose 5%-Normal Saline IV 125 mls/hr ASDIRECTED HÉCTOR Administration Discontinued Medications Generic Name Dose Route Start Last Admin Trade Name Freq PRN Reason Stop Dose Admin Acetaminophen 975 mg 09/10/18 15:21 Tylenol PO 09/10/18 15:22 NOW ONE Levetiracetam 500 mg/ Sodium 105 mls @ 400 mls/hr 09/10/18 12:26 09/10/18 12: 34 Chloride IV 09/10/18 12:40 400 mls/hr ONETIME ONE Administration Lorazepam 2 mg 09/10/18 12:26 09/10/18 12:34 Ativan IVPUSH 09/10/18 12:27 2 mg ONETIME ONE Administration Metoclopramide HCl 7.5 mg 09/10/18 12:33 09/10/18 12:37 Reglan IVPUSH 09/10/18 12:34 7.5 mg ONETIME ONE Administration Thiamine HCl 100 mg 09/10/18 12:31 09/10/18 12:37 Vitamin B-1 IVPUSH 09/10/18 12:32 100 mg ONETIME ONE Administration - Radiology Interpretation Free Text/Narrative:: 52-year-old female presents to the ED per ambulance after apparently suffering to grand mal convulsions at home and 1 in the ambulance on the way to the hospital. Patient was admitted to the hospital earlier this week with alcohol related illness. Last drink of alcohol was felt to be on September 05. Patient has been taking Librium as an outpatient it's unclear at this time how much Librium. She states she did take 25 mg earlier this morning and she was seen through the ED yesterday and got a prescription for Librium I believe 25 mg 3 times a day. She was treated with Versed 10 mg intranasally which stopped her seizure en route to the hospital. IV could not be established by paramedics. She has minimal dysarthria at the time of exam. She is still weak in all of her extremities. Complains of a really bad headache and she did hit the floor apparently quite hard in her kitchen. She has a is scalp hematoma to the occiput. She has known degenerative arthritis throughout her cervical spine and therefore will have CT head CT neck carried out. The IV will be D5 normal saline at 125 mils per hour. She'll be given Keppra 500 mg IV. Thiamine 100 mg IV. Reglan 7.5 mg IV is on naltrexone and therefore cannot receive narcotics for pain. She is allergic to Toradol and tramadol. Tramadol being contraindicated in seizure disorder. Will also be given Ativan 2 mg IV. Routine labs including blood alcohol level to be obtained - Re-Assessments/Exams Free Text/Narrative Re-Assessment/Exam: 09/10/18 13:36 Hematology is back showing a total white count of 5.15. Differential is 64% neutrophils with no band cells. Hemoglobin is 11.7. Hematocrit is 36.8. MCV is elevated at 97.9 Platelet count 230,000. CT head has been completed reveals no skull fractures or intracranial bleeding or mass effect. CT CT of the cervical spine reveals loss of the normal lordotic curvature. There is degenerative disc disease at C6-C7 level. Milder at the C5- C6 level. No bulging to the thecal canal appreciated. There is mild diffuse degenerative changes throughout the facet joints bilaterally. No fractures identified. 09/10/18 14:57 PT is 10.3 with an INR of 0.94. PTT is 25. Sodium is 142. Potassium slightly low at 3.4. Chloride 107 with a bicarbonate 25. Anion gap is 13.4. B you and is 12 with a creatinine of 0.7. Estimated GFR is greater than 60. Glucose is 126. Lactic acid is 0.9. Calcium is 9.1. Magnesium is 1.8. Bilirubin is 0.3 with an AST of 61 and ALT of 57. Alk phosphatase is 95. Creatine kinase is 36. Total protein is 6.3. Albumin fraction 3.5. Lipase 255 blood alcohol is 0.00. Ketones are 0.06. 09/10/18 15:12 None of the above labs are abnormal particularly lactic acid is not elevated and the blood glucose is normal. This is again just 3 seizures in a row which should've caused a lowering of her blood sugar and an elevation of her lactic acid. This suggest strongly to me that she is still exhibiting pseudoseizure activity. It is unlikely to be alcohol withdrawal related as apparently she did very well poorly in hospital with alcohol withdrawal symptoms. It is now 6 days since her last drink. She is there are some family members that will be available to observe her at home and I will leave her on Keppra 500 mg twice daily for prevention of seizures. She can still use the Librium as prescribed by Dr. Colon yesterday until the 10 tablets are completely finished. 09/10/18 15:22 we contacted family members and spoke with the neighbor who will look in on her. We feel at this time that there is little to offer by hospitalization at this time. I will place her on Keppra 500 mg twice daily until she can have an outpatient EEG carried out. She is exhibiting pseudoseizure activity many times in the past according to the old charts and the nursing staff were familiar with her. She is advised to expect her neck to be sore tomorrow from falling and hitting the floor. The plan will be to take her off the naltrexone which is being used to try and keep her away from alcohol. Her pain in her neck is severe. I will place her on Percocet 5/325 mg tabs 1 every 4-6 hours for pain relief 12 tablets. She has plans to follow-up with --neurosurgeon in [place] for possible fusion at the C5-6-6 and C6-C7 levels due to chronic radiculopathy in both upper extremities. She states the chronic pain is what makes her drink alcohol. She is going to an outpatient treatment program through [facility] starting Wednesday. At present she does not have any AA sponsor. Departure - Departure Time of Disposition: 15:33 Disposition: Home, Self-Care 01 Condition: Fair Clinical Impression: Pseudoseizures, Cervical radiculopathy due to degenerative joint disease of spine, Chronic pain syndrome Contusion of occipital region of scalp Qualifiers: Encounter type: initial encounter Qualified Code(s): S00.03XA - Contusion of scalp, initial encounter - Discharge Information *PRESCRIPTION DRUG MONITORING PROGRAM REVIEWED*: No *COPY OF PRESCRIPTION DRUG MONITORING REPORT IN PATIENT LEONEL: No Prescriptions: levETIRAcetam [Keppra] 500 mg PO BID #60 tablet oxyCODONE HCl/Acetaminophen [Percocet 5-325 mg Tablet] 1 - 2 each PO Q4H PRN # 15 tablet PRN Reason: pain relief. Referrals: Demian Limon PA [Primary Care Provider] - Forms: ED Department Discharge Additional Instructions: Evaluation in the emergency room today in regards to reported three seizures today. Lab tests do not support true seizures. You are experiencing seizure like activity which we call pseudoseizures. The Librium tablets that you're taking would prevent true seizures from occurring. No signs that current problems are related to alcohol withdrawl. Suggest treatment with keppra 500mg twice daily am and bedtime to try and control pseudoseizure activity. paln for alcohol treatment next week with [facility]. Chronic cervical neck pain is due to degenerative disc disease at the C-5-6 level and C6-7 levels causing pain to radiate down arms to forearms. Plan is to follow up with neurosurgeon at [facility] in [facility] for assessment as to whether or not she benefit from cervical spine fusion at the above levels.If you are to resume pain meds you will have to be off Naltrexone for at least 48hrs as this medication blocks the same receptors used for pain relief. Discuss chronic pain management with personal physcian may use Percocet tabs 1 every 4-6hrs for pain relief knowing that these medications are potentially addicting as well. May continue to use Librium 25 mg twice daily starting tomorrow until the prescription Dr. Colon wrote yesterday is finished. - My Orders Last 24 Hours: My Active Orders 09/10/18 12:28 Head wo Cont [CT] Stat 09/10/18 12:30 Cervical Spine wo Cont [CT] Stat 09/10/18 13:00 Dextrose 5%-0.9% NaCl [Dextrose 5%-Normal Saline] 1,000 ml IV ASDIRECTED - Assessment/Plan Last 24 Hours: My Active Orders 09/10/18 12:28 Head wo Cont [CT] Stat 09/10/18 12:30 Cervical Spine wo Cont [CT] Stat 09/10/18 13:00 Dextrose 5%-0.9% NaCl [Dextrose 5%-Normal Saline] 1,000 ml IV ASDIRECTED
[2018-09-10] MEDS ORDERED: Metoclopramide 10 MG/2 ML SDV IVPUSH ONE (12:33)
[2018-09-10] MEDS ORDERED: Dextrose 5%-0.9% NaCl 1,000 ML IV SCH (13:00)
[2018-09-10] MEDS ORDERED: Acetaminophen 325 MG Tab PO ONE (15:21)
--- NOTE | 2018-09-12 08:53 | CT ---
Head CT Technique: Multiple axial sections through the brain were obtained. Intravenous contrast was not utilized. Comparison: Prior head CT study of 03/10/18. Findings: Ventricles along with basal cisterns and sulci over the convexities are mildly prominent. No abnormal parenchymal densities are seen. No evidence of intracranial hemorrhage. No midline shift or mass effect is seen. Bone window settings were reviewed which show visualized mastoid sinuses and paranasal sinuses to appear clear. No acute calvarial abnormality is identified. Impression: 1. Mild stable atrophy. Nothing acute is seen. Diagnostic code #2 I agree with preliminary report from [facility], finalized on 09/10/18, 3:06 PM Central Time
--- NOTE | 2018-09-12 11:48 | CT ---
CT cervical spine Technique: Multiple axial sections were obtained from above C1 inferiorly to the top of T2. Reconstructed sagittal and coronal images were reviewed. Comparison: Prior MRI cervical spine study of 08/23/18. Findings: Vertebral body heights are maintained. Mild disc space narrowing is noted at C5-C6 and C6-C7. Mild disc space narrowing is also at C4-C5. No fracture is identified. No bony central bony neural foraminal is identified. No subluxation is appreciated. Ligamentum nuchal calcification is seen. Impression: 1. Mild degenerative change. 2. Nothing acute is appreciated on CT study of the cervical spine. Diagnostic code #2 I agree with preliminary report from [facility], finalized on 09/10/18, 3:22 PM Central Time
== END 2018-09-10 15:57 | disposition home or self-care (01) ==
LOC: JD.ED 12:18
DX: S00.03XA Contusion of scalp, initial encounter (principal); R56.9 Unspecified convulsions; M47.892 Other spondylosis, cervical region; G89.4 Chronic pain syndrome; E78.00 Pure hypercholesterolemia, unspecified; K21.9 Gastro-esophageal reflux disease without esophagitis; F41.9 Anxiety disorder, unspecified; F32.9 Major depressive disorder, single episode, unspecified; E03.9 Hypothyroidism, unspecified; Z79.899 Other long term (current) drug therapy; Z88.6 Allergy status to analgesic agent; Z88.2 Allergy status to sulfonamides; Z88.8 Allergy status to other drugs, medicaments and biological substances; W22.8XXA Striking against or struck by other objects, initial encounter
CPT/HCPCS: 36415; 70450; 72125; 80053; 82009; 82550; 83605; 83690; 83735; 85007; 85027; 85610; 85730; 96361; 96365; 96375; 96376; 99285; A9270; G0480; J1953; J2060; J2765; J3411; J7030; J7042; 99284

== ENCOUNTER 2018-12-16 18:02 | Emergency (ER) | payer MEDICAID ==
[2018-12-16 18:36] VITALS: BP 138/88; PULSE 86
[2018-12-16] MEDS ORDERED: Ketorolac 30 MG/ML SDV IM ONE (19:21)
[2018-12-16] MEDS ORDERED: diphenhydrAMINE 50 MG/ML SDV IM ONE (19:22)
--- NOTE | 2018-12-16 19:39 | EDM.PDOC ---
ED HPI GENERAL MEDICAL PROBLEM - General Chief Complaint: Back Pain or Injury Stated Complaint: BACK PAIN Time Seen by Provider: 12/16/18 19:05 Source of Information: Reports: Patient History Limitations: Reports: No Limitations - History of Present Illness INITIAL COMMENTS - FREE TEXT/NARRATIVE: 53 year old female presents for evaluation and treatment of low back pain. Patient reports back pain for the last 3 days. No trauma such as falls or MVAs. Reports pain primarily to the low back with the left side being worse than the right. Reports pain radiates into her left leg. No numbness, tingling, bowel or bladder incontinence. Patient has been seen in the ER on numerous occasions for back pain and neck pain. Most recent lumbar spine MRI shows only degenerative changes. Cervical spine MRI shows disc budging. She states she has seen Dr. Hammond in [place] regarding her neck and back. Plan for neck surgery in the next few months. No plan for any surgery to her low back. Reports Dr. Hammond felt her low back pain was from muscle spasms. Patient has a history of chronic back pain, alcohol abuse, drug seeking behavior and overdose. PCP is Consuelo Julian. Duration: Day(s): (3) Location: Reports: Back Left Back Pain Score (Numeric/FACES): 9 - Related Data Allergies Allergy/AdvReac Type Severity Reaction Status Date / Time ibuprofen Allergy Rash Verified 12/16/18 18:36 ketorolac [From Toradol] Allergy Rash Verified 12/16/18 18:36 Sulfa (Sulfonamide Allergy Rash Verified 12/16/18 18:36 Antibiotics) sumatriptan [From Imitrex] Allergy Anaphylactic Verified 12/16/18 18:36 Shock tramadol Allergy Rash Verified 12/16/18 18:36 diphenhydramine AdvReac Anxiety Verified 12/16/18 18:36 [From Benadryl] Home Meds: Home Meds Omeprazole Magnesium [Prilosec Otc] 20 mg PO DAILY 12/01/17 [History] Levothyroxine [Synthroid] 50 mcg PO ACBREAKFAST tablet 12/21/17 [Rx] hydrOXYzine HCl [hydrOXYzine] 50 mg PO BID 01/28/18 [History] Gabapentin [Neurontin] 300 mg PO BID 09/02/18 [History] Ondansetron [Zofran ODT] 4 mg PO Q8H PRN #28 tab.dis 10/07/18 [Rx] Dicyclomine [Bentyl] 20 mg PO TID PRN #15 tab 10/23/18 [Rx] Promethazine [Phenergan] 25 mg PO Q8H PRN #10 tab 10/29/18 [Rx] Past Medical History HEENT History: Reports: Allergic Rhinitis, Impaired Vision Other HEENT History: wears corrective lenses, dental infection Cardiovascular History: Reports: High Cholesterol Respiratory History: Reports: Sleep Apnea, Other (See Below) Other Respiratory History: left lung nodule, restrictive lung disease, cough, shortness of breath, pleural thickening, pleuritic chest pain Gastrointestinal History: Reports: Gastritis, GERD, Other (See Below) Other Gastrointestinal History: esophageal stricture, abdominal pain lower, elevated liver enzymes Genitourinary History: Reports: Urinary Incontinence, UTI, Recurrent, Other ( See Below) Other Genitourinary History: implantable device interstim RLQ- removed 08/16/17 ; interstim neurotransmitter placed jan 2018-left buttocks. 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: Musculoskeletal History: Reports: Back Pain, Chronic, Neck Pain, Chronic, Osteoarthritis Neurological History: Reports: Migraines, Seizure, Other (See Below) Other Neuro History: patient reports "nervous tics", nerve pain, dizziness Psychiatric History: Reports: Addiction, Anxiety, Depression, Suicide Attempt, Other (See Below) Other Psychiatric History: drug overdose, personality disorder, alcohol withdrawal Endocrine/Metabolic History: Reports: Hypothyroidism, Obesity/BMI 30+ Other Endocrine/Metabolic History: reports hypothyroidism 15 years ago that corrected itself Hematologic History: Reports: None Immunologic History: Reports: None Oncologic (Cancer) History: Reports: None Dermatologic History: Reports: Other (See Below) Other Dermatologic History: skin lesion - Infectious Disease History Infectious Disease History: Reports: Chicken Pox - Past Surgical History HEENT Surgical History: Reports: None Cardiovascular Surgical History: Reports: None Respiratory Surgical History: Reports: Lung Biopsies GI Surgical History: Reports: Appendectomy, Cholecystectomy, Colonoscopy, EGD Female Surgical History: Reports: Hysterectomy, Salpingo-Oophorectomy, Tubal Ligation, Other (See Below) Other Female Surgeries/Procedures: bladder sling 09/2017 Endocrine Surgical History: Reports: None Musculoskeletal Surgical History: Reports: None Oncologic Surgical History: Reports: None Social & Family History - Family History Family Medical History: Noncontributory Cardiac: Reports: Bypass, CAD, Heart Failure - Tobacco Use Smoking Status *Q: Current Every Day Smoker Years of Tobacco use: 10 Packs/Tins Daily: 0.5 - Caffeine Use Caffeine Use: Reports: Coffee - Recreational Drug Use Recreational Drug Use: No - Living Situation & Occupation Living situation: Reports: , Other (with roomate) Occupation: Unemployed ED ROS GENERAL - Review of Systems Review Of Systems: See Below GI/Abdominal: Denies: Stool Incontinence : Denies: Incontinence Musculoskeletal: Reports: Back Pain (low back). Denies: Neck Pain Neurological: Denies: Numbness, Tingling ED EXAM,LOWER BACK PAIN/INJURY - Physical Exam Exam: See Below Exam Limited By: No Limitations General Appearance: Alert, WD/WN, No Apparent Distress, Obese Respiratory/Chest: No Respiratory Distress Cardiovascular: Normal Peripheral Pulses, Regular Rate, Rhythm Back Exam: Normal Inspection, Paraspinal Tenderness (bilteral lumbar spine), Vertebral Tenderness (entire lumbar spine) Extremities: Normal Inspection, Normal Capillary Refill, Other (questionable effort on strength testing 4/5 strength bilterally with flexion and extension of the knees and adduction and abduction of the hips; 5/5 strength with dorsiflexion and plantarflexion ) Neurological: Alert, Normal Mood/Affect, Normal Dorsiflexion, Normal Plantar Flexion, Normal Gait Psychiatric: Normal Affect, Normal Mood Skin Exam: Warm, Dry, Normal Color Course - Vital Signs Last Recorded V/S: Last Vital Signs Temp 98.0 F 12/16/18 18:33 Pulse 86 12/16/18 18:33 Resp 18 12/16/18 18:33 BP 138/88 12/16/18 18:33 Pulse Ox 98 12/16/18 18:33 - Orders/Labs/Meds Meds: Medications Discontinued Medications Generic Name Dose Route Start Last Admin Trade Name Freq PRN Reason Stop Dose Admin Diphenhydramine HCl 25 mg 12/16/18 19:22 Benadryl IM 12/16/18 19:23 ONETIME ONE Ketorolac Tromethamine 30 mg 12/16/18 19:21 Toradol IM 12/16/18 19:22 ONETIME ONE - Re-Assessments/Exams Free Text/Narrative Re-Assessment/Exam: 12/16/18 19:28 Nursing staff informed me that the patient has eloped. She did not receive any Toradol or Benadryl. Departure - Departure Time of Disposition: 19:30 Disposition: Eloped 07 Condition: Undetermined Clinical Impression: Back pain, Drug-seeking behavior - Discharge Information *PRESCRIPTION DRUG MONITORING PROGRAM REVIEWED*: Yes *COPY OF PRESCRIPTION DRUG MONITORING REPORT IN PATIENT LEONEL: No Referrals: Consuelo Julian, CLIENT EXPERIENCE ADMINISTRATOR [Primary Care Provider] - Forms: ED Department Discharge Additional Instructions: Patient eloped from the department prior to treatment.
== END 2018-12-16 19:29 | disposition left against medical advice (07) ==
LOC: JD.ED 18:02
DX: M54.5 Low back pain (principal); Z76.5 Malingerer [conscious simulation]; K21.9 Gastro-esophageal reflux disease without esophagitis; M19.90 Unspecified osteoarthritis, unspecified site; E03.9 Hypothyroidism, unspecified; F17.210 Nicotine dependence, cigarettes, uncomplicated; Z88.8 Allergy status to other drugs, medicaments and biological substances; Z88.2 Allergy status to sulfonamides; Z79.899 Other long term (current) drug therapy
CPT/HCPCS: 99283

== ENCOUNTER 2019-01-18 14:07 | Emergency (ER) | payer MEDICAID ==
[2019-01-18] MEDS ORDERED: Sodium Chloride 0.9% 10 ML Syringe FLUSH PRN (14:10)
[2019-01-18 14:21] VITALS: BP 119/76; PULSE 77
--- NOTE | 2019-01-18 15:16 | EDM.PDOC ---
ED HPI GENERAL MEDICAL PROBLEM - General Chief Complaint: Neuro Symptoms/Deficits Stated Complaint: [facility] Time Seen by Provider: 01/18/19 14:10 Source of Information: Reports: Patient, EMS History Limitations: Reports: Altered Mental Status - History of Present Illness INITIAL COMMENTS - FREE TEXT/NARRATIVE: The patient presents by [facility] for left sided weakness. EMS found her at home and she could not move the left side of her body and she went unresponsive just before arrival. When she got here, we did a sternal rub and the patient move her arms including her left arm. She was weak all over. She had a headache. She has no chest pain or shortness of breath. She has no abdominal pain, nausea or vomiting. She has been here before with similar complaints. She admits to having a couple drinks this morning. Onset: Gradual Duration: Hour(s): Severity: Moderate Improves with: Reports: None Worsens with: Reports: None Associated Symptoms: Reports: Headaches. Denies: Chest Pain, Cough, Fever/ Chills, Nausea/Vomiting, Shortness of Breath Headache Pain Score (Numeric/FACES): 10 - Related Data Allergies Allergy/AdvReac Type Severity Reaction Status Date / Time ibuprofen Allergy Rash Verified 01/18/19 14:21 ketorolac [From Toradol] Allergy Rash Verified 01/18/19 14:21 Sulfa (Sulfonamide Allergy Rash Verified 01/18/19 14:21 Antibiotics) sumatriptan [From Imitrex] Allergy Anaphylactic Verified 01/18/19 14:21 Shock tramadol Allergy Rash Verified 01/18/19 14:21 diphenhydramine AdvReac Anxiety Verified 01/18/19 14:21 [From Benadryl] Home Meds: Home Meds Omeprazole Magnesium [Prilosec Otc] 20 mg PO DAILY 12/01/17 [History] Levothyroxine [Synthroid] 50 mcg PO ACBREAKFAST tablet 12/21/17 [Rx] Gabapentin [Neurontin] 300 mg PO BID 09/02/18 [History] Ondansetron [Zofran ODT] 4 mg PO Q8H PRN #28 tab.dis 10/07/18 [Rx] Promethazine [Phenergan] 25 mg PO Q8H PRN #10 tab 10/29/18 [Rx] Venlafaxine [Venlafaxine HCl ER] 150 mg PO DAILY 01/18/19 [History] clonazePAM [Clonazepam] 1 mg PO DAILY 01/18/19 [History] traZODone HCl [Trazodone HCl] 100 mg PO BEDTIME 01/18/19 [History] Past Medical History HEENT History: Reports: Allergic Rhinitis, Impaired Vision Other HEENT History: wears corrective lenses, dental infection Cardiovascular History: Reports: High Cholesterol Respiratory History: Reports: Sleep Apnea, Other (See Below) Other Respiratory History: left lung nodule, restrictive lung disease, cough, shortness of breath, pleural thickening, pleuritic chest pain Gastrointestinal History: Reports: Gastritis, GERD, Other (See Below) Other Gastrointestinal History: esophageal stricture, abdominal pain lower, elevated liver enzymes Genitourinary History: Reports: Urinary Incontinence, UTI, Recurrent, Other ( See Below) Other Genitourinary History: implantable device interstim RLQ- removed 08/16/17 ; interstim neurotransmitter placed jan 2018-left buttocks. 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: Musculoskeletal History: Reports: Back Pain, Chronic, Neck Pain, Chronic, Osteoarthritis Neurological History: Reports: Migraines, Seizure, Other (See Below) Other Neuro History: patient reports "nervous tics", nerve pain, dizziness Psychiatric History: Reports: Addiction, Anxiety, Depression, Suicide Attempt, Other (See Below) Other Psychiatric History: drug overdose, personality disorder, alcohol withdrawal Endocrine/Metabolic History: Reports: Hypothyroidism, Obesity/BMI 30+ Other Endocrine/Metabolic History: reports hypothyroidism 15 years ago that corrected itself Hematologic History: Reports: None Immunologic History: Reports: None Oncologic (Cancer) History: Reports: None Dermatologic History: Reports: Other (See Below) Other Dermatologic History: skin lesion - Infectious Disease History Infectious Disease History: Reports: Chicken Pox - Past Surgical History HEENT Surgical History: Reports: None Cardiovascular Surgical History: Reports: None Respiratory Surgical History: Reports: Lung Biopsies GI Surgical History: Reports: Appendectomy, Cholecystectomy, Colonoscopy, EGD Female Surgical History: Reports: Hysterectomy, Salpingo-Oophorectomy, Tubal Ligation, Other (See Below) Other Female Surgeries/Procedures: bladder sling 09/2017 Endocrine Surgical History: Reports: None Musculoskeletal Surgical History: Reports: None Oncologic Surgical History: Reports: None Social & Family History - Family History Family Medical History: Noncontributory Cardiac: Reports: Bypass, CAD, Heart Failure - Tobacco Use Smoking Status *Q: Current Every Day Smoker Years of Tobacco use: 10 Packs/Tins Daily: 0.5 - Caffeine Use Caffeine Use: Reports: Coffee - Recreational Drug Use Recreational Drug Use: No - Living Situation & Occupation Living situation: Reports: , Other (with roomate) Occupation: Unemployed ED ROS GENERAL - Review of Systems Review Of Systems: See Below Constitutional: Reports: No Symptoms HEENT: Reports: No Symptoms Respiratory: Reports: No Symptoms Cardiovascular: Reports: No Symptoms Endocrine: Reports: No Symptoms GI/Abdominal: Reports: No Symptoms : Reports: No Symptoms Musculoskeletal: Reports: No Symptoms Skin: Reports: Dryness Neurological: Reports: Weakness ED EXAM, NEURO - Physical Exam Exam: See Below Exam Limited By: No Limitations General Appearance: No Apparent Distress, Other (Drowsy) Ears: Normal External Exam Nose: Normal Inspection Head Exam: Atraumatic, Normocephalic Neck: Normal Inspection Respiratory/Chest: No Respiratory Distress, Lungs Clear, Normal Breath Sounds Cardiovascular: Regular Rate, Rhythm, No Edema, No Murmur GI/Abdominal: Soft, Non-Tender, No Organomegaly, No Mass Neurological: No Motor/Sensory Deficits, Oriented x 3, Other (Drowsy) EKG INTERPRETATION EKG Date: 01/18/19 Time: 15:00 Rhythm: NSR Rate (Beats/Min): 67 Snyder: Normal P-Wave: Present QRS: Normal ST-T: Normal QT: Normal Course - Vital Signs Last Recorded V/S: Last Vital Signs Temp 97.2 F 01/18/19 14:08 Pulse 77 01/18/19 14:08 Resp 14 01/18/19 14:08 BP 119/76 01/18/19 14:08 Pulse Ox 92 L 01/18/19 14:08 - Orders/Labs/Meds Orders: Active Orders 24 hr Category Date Time Status Cardiac Monitoring [RC] . DIRECTED Care 01/18/19 14:11 Active EKG Documentation Completion [RC] STAT Care 01/18/19 14:12 Active Peripheral IV Care [RC] . DIRECTED Care 01/18/19 14:12 Active Head wo Cont [CT] Stat Exams 01/18/19 14:12 Taken CBC WITH AUTO DIFF [HEME] Stat Lab 01/18/19 14:50 Received COMPREHENSIVE METABOLIC PN,CMP [CHEM] Stat Lab 01/18/19 14:50 Received DRUG SCREEN, URINE [URCHEM] Stat Lab 01/18/19 15:02 Ordered ETOH [ETHANOL BLOOD MEDICAL] [CHEM] Stat Lab 01/18/19 15:00 Ordered INR,PT,PROTHROMBIN TIME [COAG] Stat Lab 01/18/19 14:50 Received PTT,PARTIAL THROMBOPLSTIN TIME [COAG] Stat Lab 01/18/19 14:50 Received TROPONIN I [CHEM] Stat Lab 01/18/19 14:50 Received Sodium Chloride 0.9% [Saline Flush] Med 01/18/19 14:10 Active 10 ml FLUSH ASDIRECTED PRN Peripheral IV Insertion Adult [OM.PC] Stat Oth 01/18/19 14:10 Ordered Medication Orders Sodium Chloride (Saline Flush) 10 ml FLUSH ASDIRECTED PRN PRN Reason: Keep Vein Open Last Admin: 01/18/19 14:33 Dose: 10 ml Labs: Laboratory Tests 01/18/19 Range/Units 14:20 POC Glucose 130 H (70-105) mg/dL Meds: Medications Generic Name Dose Route Start Last Admin Trade Name Freq PRN Reason Stop Dose Admin Sodium Chloride 10 ml 01/18/19 14:10 01/18/19 14:33 Saline Flush FLUSH 10 ml ASDIRECTED PRN Administration Keep Vein Open - Re-Assessments/Exams Free Text/Narrative Re-Assessment/Exam: 01/18/19 15:17 A stroke alert was called. I went into the room right away. I ordered an IV saline lock, EKG, CT of her head and labs. The CT of her head looks good. Her EKG shows nothing acute. She is doing better now. I will discharge her home. Departure - Departure Time of Disposition: 15:20 Disposition: Home, Self-Care 01 Condition: Good Clinical Impression: Generalized weakness - Discharge Information *PRESCRIPTION DRUG MONITORING PROGRAM REVIEWED*: No *COPY OF PRESCRIPTION DRUG MONITORING REPORT IN PATIENT LEONEL: No Additional Instructions: Take your medication as prescribed. Please return if you are worse. - My Orders Last 24 Hours: My Active Orders 01/18/19 14:10 Sodium Chloride 0.9% [Saline Flush] 10 ml FLUSH ASDIRECTED PRN Peripheral IV Insertion Adult [OM.PC] Stat 01/18/19 14:11 Cardiac Monitoring [RC] . DIRECTED 01/18/19 14:12 EKG Documentation Completion [RC] STAT Peripheral IV Care [RC] . DIRECTED Head wo Cont [CT] Stat 01/18/19 14:50 CBC WITH AUTO DIFF [HEME] Stat COMPREHENSIVE METABOLIC PN,CMP [CHEM] Stat INR,PT,PROTHROMBIN TIME [COAG] Stat PTT,PARTIAL THROMBOPLSTIN TIME [COAG] Stat TROPONIN I [CHEM] Stat 01/18/19 15:00 ETOH [ETHANOL BLOOD MEDICAL] [CHEM] Stat 01/18/19 15:02 DRUG SCREEN, URINE [URCHEM] Stat - Assessment/Plan Last 24 Hours: My Active Orders 01/18/19 14:10 Sodium Chloride 0.9% [Saline Flush] 10 ml FLUSH ASDIRECTED PRN Peripheral IV Insertion Adult [OM.PC] Stat 01/18/19 14:11 Cardiac Monitoring [RC] . DIRECTED 01/18/19 14:12 EKG Documentation Completion [RC] STAT Peripheral IV Care [RC] . DIRECTED Head wo Cont [CT] Stat 01/18/19 14:50 CBC WITH AUTO DIFF [HEME] Stat COMPREHENSIVE METABOLIC PN,CMP [CHEM] Stat INR,PT,PROTHROMBIN TIME [COAG] Stat PTT,PARTIAL THROMBOPLSTIN TIME [COAG] Stat TROPONIN I [CHEM] Stat 01/18/19 15:00 ETOH [ETHANOL BLOOD MEDICAL] [CHEM] Stat 01/18/19 15:02 DRUG SCREEN, URINE [URCHEM] Stat
[2019-01-18] MEDS ORDERED: Acetaminophen 325 MG/10.15 ML ML PO ONE (15:27)
--- NOTE | 2019-01-20 08:01 | CT ---
Head CT Technique: Multiple axial sections through the brain were obtained. Intravenous contrast was not utilized. Comparison: Prior head CT study of 09/10/18. Findings: Ventricles along with basal cisterns and sulci over the convexities are mildly prominent. No abnormal parenchymal densities are seen. No evidence of intracranial hemorrhage. No midline shift or mass effect is seen. Bone window settings were reviewed which show no acute calvarial abnormality. Visualized mastoid sinuses are clear. Small retention cyst is partially visualized within the left maxillary sinus measuring 1.0 cm. Nothing acute is seen within the visualized sinuses. Impression: 1. Atrophy which appears stable from prior exam. 2. 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 3. No acute intracranial abnormality is appreciated. If patient's symptoms warrant further evaluation, MRI could then be considered. Diagnostic code #2 I agree with preliminary report from [facility], finalized on 01/18/19, 3:25 PM Central Time
== END 2019-01-18 15:45 | disposition home or self-care (01) ==
LOC: JD.ED 14:07
DX: R53.1 Weakness (principal); K21.9 Gastro-esophageal reflux disease without esophagitis; F41.9 Anxiety disorder, unspecified; F32.9 Major depressive disorder, single episode, unspecified; E03.9 Hypothyroidism, unspecified; K29.70 Gastritis, unspecified, without bleeding; F17.210 Nicotine dependence, cigarettes, uncomplicated; E66.9 Obesity, unspecified; Z68.35 Body mass index [BMI] 35.0-35.9, adult; Z88.6 Allergy status to analgesic agent; Z88.2 Allergy status to sulfonamides; Z88.8 Allergy status to other drugs, medicaments and biological substances; Z88.5 Allergy status to narcotic agent; Z79.899 Other long term (current) drug therapy; Z79.890 Hormone replacement therapy
CPT/HCPCS: 36415; 70450; 70450-26; 80053; 82962; 84484; 85025; 85610; 85730; 93005; 99284-25; G0480

== ENCOUNTER 2019-06-14 08:26 | Emergency (ER) | payer MEDICAID ==
[2019-06-14 08:45] VITALS: BP 164/106; PULSE 76
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
--- NOTE | 2019-06-14 10:27 | CT ---
Head CT Technique: Multiple axial sections through the brain were obtained. Intravenous contrast was not utilized. Comparison: Prior head CT study of 01/18/19. Findings: Ventricles along with basal cisterns and sulci over the convexities are mildly prominent. No abnormal parenchymal densities are seen. No evidence of intracranial hemorrhage. No midline shift or mass effect is seen. Small retention cyst is noted within the inferior and posterior left maxillary sinus. No acute paranasal sinus disease is seen within the visualized sinuses. Mastoid sinuses showed nothing acute. No acute calvarial abnormality is appreciated. Impression: 1. 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 2. Nothing acute is appreciated on noncontrast head CT exam. Diagnostic code #2 This report was dictated in MDT
--- NOTE | 2019-06-14 10:27 | CT ---
CT cervical spine Technique: Multiple axial sections were obtained from above C1 inferiorly to the bottom of T2. Reconstructed coronal and sagittal images were obtained. Comparison: Prior CT cervical spine study of 09/10/18. Findings: Anterior plate and screws and anterior vertebral disc spacer is noted at C6-C7. This is an interval change from previous exam. Ligamentum nuchal calcification is seen posteriorly. Mild disc space narrowing is seen at C5-C6. Mild bilateral neural foraminal is also noted at C5-C6. Other neural foramina are felt to be patent. No bony central canal stenosis is seen. No fracture is appreciated. No abnormal subluxation is appreciated. Coronal images were obtained. Minimal degenerative change within the uncovertebral joints at C4-C5 and more prominent C5-C6. Impression: 1. Previous surgery. 2. Mild degenerative change as noted above. 3. Nothing acute is appreciated on CT study of the cervical spine. Diagnostic code #2 This report was dictated in MDT
[2019-06-14] MEDS ORDERED: Acetaminophen/oxyCODONE 325-5 MG Tab PO ONE (10:42)
== END 2019-06-14 11:01 | disposition home or self-care (01) ==
LOC: JD.ED 08:26
DX: S06.0X1A Concussion with loss of consciousness of 30 minutes or less, initial encounter (principal); K21.9 Gastro-esophageal reflux disease without esophagitis; F41.9 Anxiety disorder, unspecified; F32.9 Major depressive disorder, single episode, unspecified; E03.9 Hypothyroidism, unspecified; F17.210 Nicotine dependence, cigarettes, uncomplicated; Z79.899 Other long term (current) drug therapy; Z88.8 Allergy status to other drugs, medicaments and biological substances; Z88.2 Allergy status to sulfonamides; Z88.5 Allergy status to narcotic agent; E66.9 Obesity, unspecified; Z68.29 Body mass index [BMI] 29.0-29.9, adult; Y04.0XXA Assault by unarmed brawl or fight, initial encounter
CPT/HCPCS: 70450; 70450-26; 72125; 72125-26; 99283-25

== ENCOUNTER 2019-06-30 09:29 | Emergency (ER) | payer MEDICAID ==
[2019-06-30 09:43] VITALS: BP 143/93
[2019-06-30 10:03] VITALS: PULSE 86
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
== END 2019-06-30 10:30 | disposition home or self-care (01) ==
LOC: JD.ED 09:29
DX: M54.2 Cervicalgia (principal); K21.9 Gastro-esophageal reflux disease without esophagitis; E78.00 Pure hypercholesterolemia, unspecified; F41.9 Anxiety disorder, unspecified; F32.9 Major depressive disorder, single episode, unspecified; E03.9 Hypothyroidism, unspecified; Z79.899 Other long term (current) drug therapy; Z88.6 Allergy status to analgesic agent; Z88.2 Allergy status to sulfonamides; Z88.8 Allergy status to other drugs, medicaments and biological substances
CPT/HCPCS: 99282; 99283

== ENCOUNTER 2019-07-11 11:45 | Emergency (ER) | payer MEDICAID ==
[2019-07-11 12:24] VITALS: BP 92/53; PULSE 86
[2019-07-11] MEDS ORDERED: Sodium Chloride 0.9% 1,000 ML IV ONE (12:39)
[2019-07-11] MEDS ORDERED: Folic Acid 1 MG Tab PO ONE (12:39)
[2019-07-11] MEDS ORDERED: Thiamine 100 MG Tab PO ONE (12:39)
[2019-07-11] MEDS ORDERED: Sodium Chloride 0.9% 10 ML Syringe FLUSH PRN (12:39)
[2019-07-11] MEDS ORDERED: HYDROmorphone 1 MG/ML Syringe IVPUSH ONE ×2 (12:40→15:50)
[2019-07-11] MEDS ORDERED: Ondansetron 4 MG/2 ML SDV IVPUSH ONE (12:40)
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
[2019-07-11] MEDS ORDERED: HYDROmorphone 1 MG/ML Syringe IM ONE (15:05)
--- NOTE | 2019-07-12 08:31 | CR ---
Chest: Portable view of the chest was obtained. Comparison: Prior chest x-ray of 05/28/18. Heart size and mediastinum are normal. Previous lower cervical spine surgery is seen. Lungs are clear with no acute parenchymal change. Bony structures are grossly intact. Impression: 1. Nothing acute is appreciated on portable chest x-ray. Diagnostic code #2 This report was dictated in MDT
== END 2019-07-11 16:27 | disposition home or self-care (01) ==
LOC: JD.ED 11:45
DX: F32.9 Major depressive disorder, single episode, unspecified (principal); F41.9 Anxiety disorder, unspecified; F10.129 Alcohol abuse with intoxication, unspecified; Y90.2 Blood alcohol level of 40-59 mg/100 ml; K21.9 Gastro-esophageal reflux disease without esophagitis; E03.9 Hypothyroidism, unspecified; F17.210 Nicotine dependence, cigarettes, uncomplicated; Z88.6 Allergy status to analgesic agent; Z88.2 Allergy status to sulfonamides; Z88.8 Allergy status to other drugs, medicaments and biological substances; Z88.5 Allergy status to narcotic agent
CPT/HCPCS: 36415; 71045; 80053; 80307; 83735; 85025; 85610; 96372; 96374; 96375; 99284; A9270; J1170; J2405

== ENCOUNTER 2019-07-30 15:05 | Emergency (ER) | payer MEDICAID ==
[2019-07-30 15:15] VITALS: BP 182/115; PULSE 96
[2019-07-30] MEDS ORDERED: Haloperidol Lactate 5 MG/ML SDV IM ONE (15:56)
[2019-07-30] MEDS ORDERED: Sodium Chloride 0.9% 1,000 ML IV SCH (16:00)
[2019-07-30] MEDS ORDERED: Promethazine 25 MG/ML SDV IM ONE (16:55)
[2019-07-30] MEDS ORDERED: Metoclopramide 10 MG/2 ML SDV IVPUSH ONE (16:57)
--- NOTE | 2019-07-30 17:44 | EDM.PDOC ---
ED HPI GENERAL MEDICAL PROBLEM - General Chief Complaint: Abdominal Pain Stated Complaint: [facility] Time Seen by Provider: 07/30/19 15:10 - History of Present Illness INITIAL COMMENTS - FREE TEXT/NARRATIVE: Bro Rosenbaum a 53-year-old female who presents the emergency room with chief complaints of abdominal pain for the past 3 days. She reports having diarrhea stools 4-5 daily. She also complains of moderate headache. She denies fever reports that she does have chills. Patient does have a history of neck pain, alcohol abuse, chronic back pain, anxiety, depression and abdominal pain. She admits to doing methamphetamines yesterday. She report she tried taking Zofran for her nausea but was not able to keep it down. Patient is very anxious and tearful at this time. Patient does have Lorazepam prescription which she has not filled at this time. Onset Date: 07/27/19 Onset Time: 12:00 Duration: Getting Worse Location: Reports: Head, Abdomen Quality: Reports: Ache Severity: Mild Improves with: Reports: None Worsens with: Reports: None Associated Symptoms: Reports: Loss of Appetite, Nausea/Vomiting. Denies: Chest Pain, Cough, Fever/Chills, Shortness of Breath Abdomen Pain Score (Numeric/FACES): 8 Headache Pain Score (Numeric/FACES): 8 - Related Data Allergies Allergy/AdvReac Type Severity Reaction Status Date / Time ibuprofen Allergy Severe Rash Verified 07/30/19 15:15 ketorolac [From Toradol] Allergy Severe Rash Verified 07/30/19 15:15 Sulfa (Sulfonamide Allergy Severe Rash Verified 07/30/19 15:15 Antibiotics) sumatriptan [From Imitrex] Allergy Severe Anaphylactic Verified 07/30/19 15:15 Shock tramadol Allergy Severe Rash Verified 07/30/19 15:15 diphenhydramine AdvReac Severe Anxiety Verified 07/30/19 15:15 [From Benadryl] Home Meds: Home Meds Omeprazole Magnesium [Prilosec Otc] 20 mg PO DAILY 12/01/17 [History] Levothyroxine [Synthroid] 50 mcg PO ACBREAKFAST tablet 12/21/17 [Rx] LORazepam [Ativan] 1 mg PO TID PRN #12 tab 07/11/19 [Rx] Ondansetron [Zofran ODT] 4 mg PO Q8H PRN #28 tab.dis 07/11/19 [Rx] DULoxetine [Cymbalta] 60 mg PO DAILY 07/30/19 [History] Meloxicam 15 mg PO DAILY 07/30/19 [History] Past Medical History HEENT History: Reports: Allergic Rhinitis, Impaired Vision Other HEENT History: wears corrective lenses, dental infection Cardiovascular History: Reports: High Cholesterol Respiratory History: Reports: Sleep Apnea, Other (See Below) Other Respiratory History: left lung nodule, restrictive lung disease, cough, shortness of breath, pleural thickening, pleuritic chest pain Gastrointestinal History: Reports: Gastritis, GERD, Other (See Below) Other Gastrointestinal History: esophageal stricture, abdominal pain lower, elevated liver enzymes Genitourinary History: Reports: Urinary Incontinence, UTI, Recurrent, Other ( See Below) Other Genitourinary History: implantable device interstim RLQ- removed 08/16/17 ; interstim neurotransmitter placed jan 2018-left buttocks. 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: Musculoskeletal History: Reports: Back Pain, Chronic, Neck Pain, Chronic, Osteoarthritis Other Musculoskeletal History: neck surgery Neurological History: Reports: Migraines, Seizure, Other (See Below) Other Neuro History: patient reports "nervous tics", nerve pain, dizziness Psychiatric History: Reports: Addiction, Anxiety, Depression, Suicide Attempt, Other (See Below) Other Psychiatric History: drug overdose, personality disorder, alcohol withdrawal Endocrine/Metabolic History: Reports: Hypothyroidism, Obesity/BMI 30+ Other Endocrine/Metabolic History: reports hypothyroidism 15 years ago that corrected itself Hematologic History: Reports: None Immunologic History: Reports: None Oncologic (Cancer) History: Reports: None Dermatologic History: Reports: Other (See Below) Other Dermatologic History: skin lesion - Infectious Disease History Infectious Disease History: Reports: Chicken Pox - Past Surgical History HEENT Surgical History: Reports: None Cardiovascular Surgical History: Reports: None Respiratory Surgical History: Reports: Lung Biopsies GI Surgical History: Reports: Appendectomy, Cholecystectomy, Colonoscopy, EGD Female Surgical History: Reports: Hysterectomy, Salpingo-Oophorectomy, Tubal Ligation, Other (See Below) Other Female Surgeries/Procedures: bladder sling 09/2017 Endocrine Surgical History: Reports: None Neurological Surgical History: Reports: C-Spine, Other (See Below) Other Neurological Surgeries/Procedures: Disc removed from her neck, titanium plate inserted in 2019. Musculoskeletal Surgical History: Reports: None Oncologic Surgical History: Reports: None Social & Family History - Family History Family Medical History: Noncontributory Cardiac: Reports: Bypass, CAD, Heart Failure - Tobacco Use Smoking Status *Q: Never Smoker - Caffeine Use Caffeine Use: Reports: Coffee, Soda, Tea - Recreational Drug Use Recreational Drug Use: No - Living Situation & Occupation Living situation: Reports: , Other (with roomate) Occupation: Unemployed ED ROS GENERAL - Review of Systems Review Of Systems: See Below Constitutional: Reports: Chills. Denies: Fever HEENT: Reports: No Symptoms Respiratory: Denies: Shortness of Breath Cardiovascular: Denies: Chest Pain Endocrine: Reports: Fatigue GI/Abdominal: Reports: Abdominal Pain, Diarrhea, Vomiting : Reports: No Symptoms Musculoskeletal: Reports: Neck Pain, Back Pain (Chronic neck and back pain.) Neurological: Reports: No Symptoms Psychiatric: Reports: Anxiety, Depression Hematologic/Lymphatic: Reports: No Symptoms Immunologic: Reports: No Symptoms ED EXAM, GI/ABD - Physical Exam Exam: See Below Exam Limited By: No Limitations General Appearance: Alert, WD/WN, No Apparent Distress Ears: Normal External Exam, Normal Canal, Hearing Grossly Normal, Normal TMs Nose: Normal Inspection Throat/Mouth: Normal Inspection, Normal Lips, Normal Teeth, Normal Gums, Normal Oropharynx, Normal Voice, No Airway Compromise Neck: Normal Inspection, Supple, Non-Tender Respiratory/Chest: No Respiratory Distress, Lungs Clear, Normal Breath Sounds, No Accessory Muscle Use, Chest Non-Tender Cardiovascular: Normal Peripheral Pulses, Regular Rate, Rhythm, No Edema, No Gallop, No JVD, No Murmur, No Rub GI/Abdominal Exam: Normal Bowel Sounds, Soft, Non-Tender, No Organomegaly, No Distention, No Abnormal Bruit, No Mass Back Exam: Normal Inspection, Full Range of Motion Extremities: Normal Inspection, Normal Range of Motion, Non-Tender, No Pedal Edema, Normal Capillary Refill Neurological: Alert, Oriented, CN II-XII Intact, Normal Cognition, Normal Gait Psychiatric: Anxious Skin Exam: Warm, Dry, Intact, Normal Color, No Rash Lymphatic: No Adenopathy Course - Vital Signs Text/Narrative:: Bro Rosenbaum 3-year-old female who presents the emergency room with chief complaints of abdominal pain for the past 3 days. She denies fever reports intermittent chills. She also states that she has had diarrhea stools. Patient does have a history of neck pain, alcohol abuse, chronic back pain, anxiety, depression and abdominal pain. Will order labs, IV fluid, Toradol, Haldol. Last Recorded V/S: Last Vital Signs Temp 96 F L 07/30/19 15:10 Pulse 96 07/30/19 15:10 Resp 22 H 07/30/19 15:10 BP 182/115 H 07/30/19 15:10 Pulse Ox 100 07/30/19 15:10 - Orders/Labs/Meds Labs: Laboratory Tests 07/30/19 07/30/19 Range/Units 16:50 16:50 WBC 8.03 (3.98-10.04) K/mm3 RBC 4.87 (3.98-5.22) M/mm3 Hgb 15.2 D (11.2-15.7) gm/dl Hct 44.7 (34.1-44.9) % MCV 91.8 D (79.4-94.8) fl MCH 31.2 (25.6-32.2) pg MCHC 34.0 (32.2-35.5) g/dl RDW Std Deviation 43.9 (36.4-46.3) fL Plt Count 261 (182-369) K/mm3 MPV 10.0 (9.4-12.3) fl Neut % (Auto) 64.3 (34.0-71.1) % Lymph % (Auto) 23.9 (19.3-51.7) % [place] % (Auto) 10.5 (4.7-12.5) % Eos % (Auto) 0.6 L (0.7-5.8) Baso % (Auto) 0.6 (0.1-1.2) % Neut # (Auto) 5.16 (1.56-6.13) K/mm3 Lymph # (Auto) 1.92 (1.18-3.74) K/mm3 [place] # (Auto) 0.84 H (0.24-0.36) K/mm3 Eos # (Auto) 0.05 (0.04-0.36) K/mm3 Baso # (Auto) 0.05 (0.01-0.08) K/mm3 Sodium 138 (136-145) mEq/L Potassium 3.5 (3.5-5.1) mEq/L Chloride 101 (98-107) mEq/L Carbon Dioxide 22 (21-32) mEq/L Anion Gap 18.5 H (5-15) BUN 13 (7-18) mg/dL Creatinine 0.8 (0.55-1.02) mg/dL Est Cr Clr Drug Dosing 72.34 mL/min Estimated GFR (MDRD) > 60 (>60) mL/min BUN/Creatinine Ratio 16.3 (14-18) Glucose 105 (74-106) mg/dL Calcium 9.6 (8.5-10.1) mg/dL Total Bilirubin 0.6 (0.2-1.0) mg/dL AST 32 (15-37) U/L ALT 39 (14-59) U/L Alkaline Phosphatase 143 H (46-116) U/L Total Protein 8.0 (6.4-8.2) g/dl Albumin 4.3 (3.4-5.0) g/dl Globulin 3.7 gm/dL Albumin/Globulin Ratio 1.2 (1-2) Meds: Medications Discontinued Medications Generic Name Dose Route Start Last Admin Trade Name Freq PRN Reason Stop Dose Admin Haloperidol Lactate 5 mg 07/30/19 15:56 07/30/19 17:08 Haldol IM 07/30/19 15:57 Not Given ONETIME ONE Sodium Chloride 1,000 mls @ 999 mls/hr 07/30/19 16:00 07/30/19 17:05 Normal Saline IV 999 mls/hr ASDIRECTED HÉCTOR Administration Metoclopramide HCl 10 mg 07/30/19 16:57 07/30/19 17:02 Reglan IVPUSH 07/30/19 16:58 10 mg ONETIME ONE Administration Promethazine HCl 25 mg 07/30/19 16:55 07/30/19 17:06 Phenergan IM 07/30/19 16:56 25 mg ONETIME ONE Administration - Re-Assessments/Exams Free Text/Narrative Re-Assessment/Exam: 07/30/19 1630 patient refuses makes her feel bad. She reports that she is taken this in the past and it made her more anxious. She is refusing Toradol reports that she has had a rash in the past however is received medication here and has had no such rash. I will medicate with Phenergan and Reglan. 07/30/19 9960 patient is upset stating that she feels she is not getting the treatment that she needs. I informed her that the treatment plan is on evidence -based practice and the International headache Society. Patient reports that she does not want any further treatment and wants to just leave. Formed her that if she left it would be AGAINST MEDICAL ADVICE that her condition could worsen her pain could increase resulting . She is alert and oriented and of sound mind and continues to refuse any further treatment. She signed a AMA form and left. Departure - Departure Time of Disposition: 17:15 Disposition: Against Medical Advice 07 Clinical Impression: Gastroenteritis, Pyelonephritis, Methamphetamine abuse Abdominal pain Qualifiers: Abdominal location: generalized Qualified Code(s): R10.84 - Generalized abdominal pain Diarrhea Qualifiers: Diarrhea type: unspecified type Qualified Code(s): R19.7 - Diarrhea, unspecified - Discharge Information Referrals: Consuelo Julian, SUPER[employer]OR [employer] [Primary Care Provider] - Forms: ED Department Discharge Sepsis Event Note - Evaluation Sepsis Screening Result: No Definite Risk - Focused Exam Vital Signs: Vital Signs Temp Pulse Resp BP Pulse Ox 07/30/19 15:10 96 F L 96 22 H 182/115 H 100 Date Exam was Performed: 07/30/19 Time Exam was Performed: 17:53
== END 2019-07-30 17:21 | disposition left against medical advice (07) ==
LOC: JD.ED 15:05
DX: K52.9 Noninfective gastroenteritis and colitis, unspecified (principal); N12 Tubulo-interstitial nephritis, not specified as acute or chronic; F15.10 Other stimulant abuse, uncomplicated; K21.9 Gastro-esophageal reflux disease without esophagitis; F41.9 Anxiety disorder, unspecified; F32.9 Major depressive disorder, single episode, unspecified; E03.9 Hypothyroidism, unspecified; E66.9 Obesity, unspecified; Z88.6 Allergy status to analgesic agent; Z88.2 Allergy status to sulfonamides; Z88.8 Allergy status to other drugs, medicaments and biological substances; Z79.899 Other long term (current) drug therapy; Z68.33 Body mass index [BMI] 33.0-33.9, adult
CPT/HCPCS: 36415; 80053; 85025; 96372; 96374; 99284; J2550; J2765; J7030

== ENCOUNTER 2019-08-09 12:56 | Emergency (ER) | payer MEDICAID ==
[2019-08-09] MEDS ORDERED: Ondansetron 4 MG Tab.DIS PO ONE (13:08)
[2019-08-09] MEDS ORDERED: Pantoprazole 40 MG Vial IVPUSH ONE (13:29)
[2019-08-09] MEDS ORDERED: Sodium Chloride 0.9% 10 ML Syringe FLUSH PRN (13:29)
[2019-08-09] MEDS ORDERED: Sodium Chloride 0.9% 1,000 ML IV SCH (13:45)
[2019-08-09] MEDS ORDERED: Metoclopramide 10 MG/2 ML SDV IVPUSH ONE (14:09)
--- NOTE | 2019-08-09 14:29 | EDM.PDOCBH ---
ED HPI GENERAL MEDICAL PROBLEM - General Chief Complaint: Drug or Alcohol Abuse Stated Complaint: [facility] Time Seen by Provider: 08/09/19 13:04 Source of Information: Reports: Patient, EMS History Limitations: Reports: Intoxication - History of Present Illness INITIAL COMMENTS - FREE TEXT/NARRATIVE: The patient presents by [facility] for alcohol intoxication. She relapsed and started drinking again. She is crying and saying sorry. She has nausea and vomiting. She has been drinking for a few days. Onset: Gradual Duration: Day(s): Improves with: Reports: None Worsens with: Reports: None Associated Symptoms: Reports: Nausea/Vomiting. Denies: Chest Pain, Cough, Fever /Chills, Headaches, Shortness of Breath Abdomen Pain Score (Numeric/FACES): 10 - Related Data Allergies Allergy/AdvReac Type Severity Reaction Status Date / Time ibuprofen Allergy Severe Rash Verified 08/09/19 13:07 ketorolac [From Toradol] Allergy Severe Rash Verified 08/09/19 13:07 Sulfa (Sulfonamide Allergy Severe Rash Verified 08/09/19 13:07 Antibiotics) sumatriptan [From Imitrex] Allergy Severe Anaphylactic Verified 08/09/19 13:07 Shock tramadol Allergy Severe Rash Verified 08/09/19 13:07 diphenhydramine AdvReac Severe Anxiety Verified 08/09/19 13:07 [From Benadryl] Home Meds: Home Meds Omeprazole Magnesium [Prilosec Otc] 20 mg PO DAILY 12/01/17 [History] Levothyroxine [Synthroid] 50 mcg PO ACBREAKFAST tablet 12/21/17 [Rx] LORazepam [Ativan] 1 mg PO TID PRN #12 tab 07/11/19 [Rx] Ondansetron [Zofran ODT] 4 mg PO Q8H PRN #28 tab.dis 07/11/19 [Rx] DULoxetine [Cymbalta] 60 mg PO DAILY 07/30/19 [History] Meloxicam 15 mg PO DAILY 07/30/19 [History] Ondansetron [Zofran ODT] 4 mg PO Q6H PRN #20 tab.dis 08/09/19 [Rx] Past Medical History HEENT History: Reports: Allergic Rhinitis, Impaired Vision Other HEENT History: wears corrective lenses, dental infection Cardiovascular History: Reports: High Cholesterol Respiratory History: Reports: Sleep Apnea, Other (See Below) Other Respiratory History: left lung nodule, restrictive lung disease, cough, shortness of breath, pleural thickening, pleuritic chest pain Gastrointestinal History: Reports: Gastritis, GERD, Other (See Below) Other Gastrointestinal History: esophageal stricture, abdominal pain lower, elevated liver enzymes Genitourinary History: Reports: Urinary Incontinence, UTI, Recurrent, Other ( See Below) Other Genitourinary History: implantable device interstim RLQ- removed 08/16/17 ; interstim neurotransmitter placed jan 2018-left buttocks. 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: Musculoskeletal History: Reports: Back Pain, Chronic, Neck Pain, Chronic, Osteoarthritis Other Musculoskeletal History: neck surgery Neurological History: Reports: Migraines, Seizure, Other (See Below) Other Neuro History: patient reports "nervous tics", nerve pain, dizziness Psychiatric History: Reports: Addiction, Anxiety, Depression, Suicide Attempt, Other (See Below) Other Psychiatric History: drug overdose, personality disorder, alcohol withdrawal Endocrine/Metabolic History: Reports: Hypothyroidism, Obesity/BMI 30+ Other Endocrine/Metabolic History: reports hypothyroidism 15 years ago that corrected itself Hematologic History: Reports: None Immunologic History: Reports: None Oncologic (Cancer) History: Reports: None Dermatologic History: Reports: Other (See Below) Other Dermatologic History: skin lesion - Infectious Disease History Infectious Disease History: Reports: Chicken Pox - Past Surgical History HEENT Surgical History: Reports: None Cardiovascular Surgical History: Reports: None Respiratory Surgical History: Reports: Lung Biopsies GI Surgical History: Reports: Appendectomy, Cholecystectomy, Colonoscopy, EGD Female Surgical History: Reports: Hysterectomy, Salpingo-Oophorectomy, Tubal Ligation, Other (See Below) Other Female Surgeries/Procedures: bladder sling 09/2017 Endocrine Surgical History: Reports: None Neurological Surgical History: Reports: C-Spine, Other (See Below) Other Neurological Surgeries/Procedures: Disc removed from her neck, titanium plate inserted in 2019. Musculoskeletal Surgical History: Reports: None Oncologic Surgical History: Reports: None Social & Family History - Family History Family Medical History: Noncontributory Cardiac: Reports: Bypass, CAD, Heart Failure - Tobacco Use Smoking Status *Q: Current Every Day Smoker Years of Tobacco use: 10 Packs/Tins Daily: 0.2 - Caffeine Use Caffeine Use: Reports: None - Alcohol Use Days Per Week of Alcohol Use: 7 Number of Drinks Per Day: 10 Total Drinks Per Week: 70 - Recreational Drug Use Recreational Drug Use: No - Living Situation & Occupation Living situation: Reports: , Other (with roomate) Occupation: Unemployed ED ROS GENERAL - Review of Systems Review Of Systems: See Below Constitutional: Reports: No Symptoms HEENT: Reports: No Symptoms Respiratory: Reports: No Symptoms Cardiovascular: Reports: No Symptoms Endocrine: Reports: No Symptoms GI/Abdominal: Reports: Abdominal Pain, Nausea, Vomiting ED EXAM, BEHAVIORAL HEALTH - Physical Exam Exam: See Below Exam Limited By: No Limitations General Appearance: Alert, No Apparent Distress Ears: Normal External Exam Throat/Mouth: Normal Inspection Head: Atraumatic, Normocephalic Neck: Normal Inspection Respiratory/Chest: No Respiratory Distress, Lungs Clear, Normal Breath Sounds Cardiovascular: Regular Rate, Rhythm, No Edema, No Murmur GI/Abdominal: Soft, Non-Tender, No Organomegaly, No Mass Back Exam: Normal Inspection Extremities: Normal Inspection Neurological: Alert, No Motor/Sensory Deficits, Oriented x 3 COURSE, BEHAVIORAL HEALTH COMP - Course Vital Signs: Last Vital Signs Temp 97.0 F 08/09/19 13:03 Pulse 85 08/09/19 13:03 Resp 18 08/09/19 13:03 BP 191/114 H 08/09/19 13:03 Pulse Ox 95 08/09/19 13:03 Orders, Labs, Meds: Active Orders 24 hr Category Date Time Status Cardiac Monitoring [RC] . DIRECTED Care 08/09/19 13:07 Active Peripheral IV Care [RC] . DIRECTED Care 08/09/19 13:29 Active Sodium Chloride 0.9% [Normal Saline] 1,000 ml Med 08/09/19 13:45 Active IV ASDIRECTED Sodium Chloride 0.9% [Saline Flush] Med 08/09/19 13:29 Active 10 ml FLUSH ASDIRECTED PRN Peripheral IV Insertion Adult [OM.PC] Routine Oth 08/09/19 13:29 Ordered Medication Orders Sodium Chloride (Normal Saline) 1,000 mls @ 999 mls/hr IV ASDIRECTED HÉCTOR Last Admin: 08/09/19 13:50 Dose: 999 mls/hr Sodium Chloride (Saline Flush) 10 ml FLUSH ASDIRECTED PRN PRN Reason: Keep Vein Open Last Admin: 08/09/19 13:20 Dose: 10 ml Laboratory Tests 08/09/19 08/09/19 Range/Units : 13:20 WBC 7.24 (3.98-10.04) K/mm3 RBC 5.01 (3.98-5.22) M/mm3 Hgb 15.8 H (11.2-15.7) gm/dl Hct 47.0 H (34.1-44.9) % MCV 93.8 (79.4-94.8) fl MCH 31.5 (25.6-32.2) pg MCHC 33.6 (32.2-35.5) g/dl RDW Std Deviation 43.5 (36.4-46.3) fL Plt Count 407 H D (182-369) K/mm3 MPV 10.0 (9.4-12.3) fl Neut % (Auto) 48.8 (34.0-71.1) % Lymph % (Auto) 43.1 (19.3-51.7) % [place] % (Auto) 5.2 (4.7-12.5) % Eos % (Auto) 1.8 (0.7-5.8) Baso % (Auto) 0.8 (0.1-1.2) % Neut # (Auto) 3.53 (1.56-6.13) K/mm3 Lymph # (Auto) 3.12 (1.18-3.74) K/mm3 [place] # (Auto) 0.38 H (0.24-0.36) K/mm3 Eos # (Auto) 0.13 (0.04-0.36) K/mm3 Baso # (Auto) 0.06 (0.01-0.08) K/mm3 Sodium 143 (136-145) mEq/L Potassium 3.2 L (3.5-5.1) mEq/L Chloride 105 (98-107) mEq/L Carbon Dioxide 25 (21-32) mEq/L Anion Gap 16.2 H (5-15) BUN 12 (7-18) mg/dL Creatinine 0.7 (0.55-1.02) mg/dL Est Cr Clr Drug Dosing 82.67 mL/min Estimated GFR (MDRD) > 60 (>60) mL/min BUN/Creatinine Ratio 17.1 (14-18) Glucose 119 H (74-106) mg/dL Calcium 9.2 (8.5-10.1) mg/dL Total Bilirubin 0.3 (0.2-1.0) mg/dL AST 40 H (15-37) U/L ALT 53 (14-59) U/L Alkaline Phosphatase 144 H (46-116) U/L Total Protein 8.1 (6.4-8.2) g/dl Albumin 4.2 (3.4-5.0) g/dl Globulin 3.9 gm/dL Albumin/Globulin Ratio 1.1 (1-2) Lipase 190 (73-393) U/L Ethyl Alcohol 0.31 (0.00) gm% Medications Generic Name Dose Route Start Last Admin Trade Name Freq PRN Reason Stop Dose Admin Sodium Chloride 1,000 mls @ 999 mls/hr 08/09/19 13:45 08/09/19 13:50 Normal Saline IV 999 mls/hr ASDIRECTED HÉCTOR Administration Sodium Chloride 10 ml 08/09/19 13:29 08/09/19 13:20 Saline Flush FLUSH 10 ml ASDIRECTED PRN Administration Keep Vein Open Discontinued Medications Generic Name Dose Route Start Last Admin Trade Name Freq PRN Reason Stop Dose Admin Metoclopramide HCl 10 mg 08/09/19 14:09 08/09/19 14:20 Reglan IVPUSH 08/09/19 14:10 10 mg ONETIME ONE Administration Ondansetron HCl 4 mg 08/09/19 13:08 08/09/19 13:16 Zofran Odt PO 08/09/19 13:09 4 mg ONETIME ONE Administration Pantoprazole Sodium 40 mg 08/09/19 13:29 08/09/19 13:48 Protonix Iv IVPUSH 08/09/19 13:30 40 mg ONETIME ONE Administration Re-Assessment/Re-Exam: I ordered an IV NS 1L bolus, zofran 4mg ODT PO, and labs. Her CBC and CMP look good. His ETOH is elevated at 0.31. She still has nausea and vomiting. I ordered reglan 10mg IV. She would like to go. Departure - Departure Time of Disposition: 14:30 Disposition: Home, Self-Care 01 Condition: Good Clinical Impression: Vomiting Qualifiers: Vomiting type: unspecified Vomiting Intractability: non-intractable Nausea presence: with nausea Qualified Code(s): R11.2 - Nausea with vomiting, unspecified Alcohol intoxication Qualifiers: Complication of substance-induced condition: uncomplicated Qualified Code(s): F10.920 - Alcohol use, unspecified with intoxication, uncomplicated - Discharge Information *PRESCRIPTION DRUG MONITORING PROGRAM REVIEWED*: Not Applicable *COPY OF PRESCRIPTION DRUG MONITORING REPORT IN PATIENT LEONEL: Not Applicable Prescriptions: Ondansetron [Zofran ODT] 4 mg PO Q6H PRN #20 tab.dis PRN Reason: Nausea\\vomiting Referrals: Consuelo Julian, MANAGER CR[employer] CARE [Primary Care Provider] - Additional Instructions: Stop drinking alcohol and drink plenty of other fluids. Take zofran every 6 hours as needed for nausea and vomiting. Please return if you are worse. Sepsis Event Note - Evaluation Sepsis Screening Result: No Definite Risk - Focused Exam Vital Signs: Vital Signs Temp Pulse Resp BP Pulse Ox 08/09/19 13:03 97.0 F 85 18 191/114 H 95 Date Exam was Performed: 08/09/19 Time Exam was Performed: 14:24 - My Orders Last 24 Hours: My Active Orders 08/09/19 13:07 Cardiac Monitoring [RC] . DIRECTED 08/09/19 13:29 Peripheral IV Care [RC] . DIRECTED Sodium Chloride 0.9% [Saline Flush] 10 ml FLUSH ASDIRECTED PRN Peripheral IV Insertion Adult [OM.PC] Routine 08/09/19 13:45 Sodium Chloride 0.9% [Normal Saline] 1,000 ml IV ASDIRECTED - Assessment/Plan Last 24 Hours: My Active Orders 08/09/19 13:07 Cardiac Monitoring [RC] . DIRECTED 08/09/19 13:29 Peripheral IV Care [RC] . DIRECTED Sodium Chloride 0.9% [Saline Flush] 10 ml FLUSH ASDIRECTED PRN Peripheral IV Insertion Adult [OM.PC] Routine 08/09/19 13:45 Sodium Chloride 0.9% [Normal Saline] 1,000 ml IV ASDIRECTED
[2019-08-09 14:58] VITALS: BP 112/82; PULSE 78
== END 2019-08-09 14:55 | disposition home or self-care (01) ==
LOC: JD.ED 12:56
DX: F10.920 Alcohol use, unspecified with intoxication, uncomplicated (principal); R11.2 Nausea with vomiting, unspecified; K21.9 Gastro-esophageal reflux disease without esophagitis; E03.9 Hypothyroidism, unspecified; E66.9 Obesity, unspecified; F41.9 Anxiety disorder, unspecified; F32.9 Major depressive disorder, single episode, unspecified; Z68.33 Body mass index [BMI] 33.0-33.9, adult; F17.210 Nicotine dependence, cigarettes, uncomplicated; Z88.6 Allergy status to analgesic agent; Z88.2 Allergy status to sulfonamides; Z88.5 Allergy status to narcotic agent; Z88.8 Allergy status to other drugs, medicaments and biological substances; Z79.899 Other long term (current) drug therapy
CPT/HCPCS: 36415; 80053; 80307; 83690; 85025; 96361; 96374; 96375; 99284; A9270; C9113; J2765; J7030

== ENCOUNTER 2019-08-10 05:29 | Emergency (ER) | payer MEDICAID ==
[2019-08-10 05:36] VITALS: BP 160/110; PULSE 99
[2019-08-10] MEDS ORDERED: Ondansetron 4 MG/2 ML SDV IVPUSH ONE (05:46)
[2019-08-10] MEDS ORDERED: LORazepam 2 MG/ML SDV IVPUSH ONE ×4 (05:46→08:58)
[2019-08-10] MEDS ORDERED: Alum Hydrox/Mag Hydrox/Simeth 30 ML, Lidocaine 2% 15 ML PO ONE ×2 (05:46)
[2019-08-10] MEDS ORDERED: Ondansetron 4 MG Tab.DIS PO ONE (06:06)
--- NOTE | 2019-08-10 06:16 | EDM.PDOC ---
<Pancho Shell - Last Filed: 08/10/19 07:16> ED HPI GENERAL MEDICAL PROBLEM - General Chief Complaint: Drug or Alcohol Abuse Stated Complaint: [facility] Time Seen by Provider: 08/10/19 06:07 - History of Present Illness INITIAL COMMENTS - FREE TEXT/NARRATIVE: 53-year-old female returns to the emergency room with complaints of alcohol withdrawal. Her last drink was yesterday morning around 10:00. The patient has been drinking heavily since this last Katherin. She has been seen in this emergency room for various alcohol-related problems. The patient has complaining of chest pain anxiety she feels like things are crawling on her skin. Before the patient started drinking again she was doing really well for about a year. She states she started to drink again to help control the pain she has chronic neck and back problems she has had neck surgery in the past. The patient describes a real burning sensation in her abdomen and she complains of left-sided chest discomfort as well no pain into her jaw or into her arms. The patient does not feel short of breath. She has no prior coronary artery disease but a positive family history. The patient does have a history of hyperlipidemia. The patient also has a significant history of gastroesophageal reflux disease. Left Chest Pain Score (Numeric/FACES): 5 - Related Data Allergies Allergy/AdvReac Type Severity Reaction Status Date / Time ibuprofen Allergy Severe Rash Verified 08/10/19 05:48 ketorolac [From Toradol] Allergy Severe Rash Verified 08/10/19 05:48 Sulfa (Sulfonamide Allergy Severe Rash Verified 08/10/19 05:48 Antibiotics) sumatriptan [From Imitrex] Allergy Severe Anaphylactic Verified 08/10/19 05:48 Shock tramadol Allergy Severe Rash Verified 08/10/19 05:48 diphenhydramine AdvReac Severe Anxiety Verified 08/10/19 05:48 [From Benadryl] Home Meds: Home Meds Omeprazole Magnesium [Prilosec Otc] 20 mg PO DAILY 12/01/17 [History] Levothyroxine [Synthroid] 50 mcg PO ACBREAKFAST tablet 12/21/17 [Rx] LORazepam [Ativan] 1 mg PO TID PRN #12 tab 07/11/19 [Rx] DULoxetine [Cymbalta] 60 mg PO DAILY 07/30/19 [History] Meloxicam 15 mg PO DAILY 07/30/19 [History] Ondansetron [Zofran ODT] 4 mg PO Q6H PRN #20 tab.dis 08/09/19 [Rx] LORazepam [Ativan] 1 mg PO ASDIRECTED #28 tab 08/10/19 [Rx] Past Medical History HEENT History: Reports: Allergic Rhinitis, Impaired Vision Other HEENT History: wears corrective lenses, dental infection Cardiovascular History: Reports: High Cholesterol Respiratory History: Reports: Sleep Apnea, Other (See Below) Other Respiratory History: left lung nodule, restrictive lung disease, cough, shortness of breath, pleural thickening, pleuritic chest pain Gastrointestinal History: Reports: Gastritis, GERD, Other (See Below) Other Gastrointestinal History: esophageal stricture, abdominal pain lower, elevated liver enzymes Genitourinary History: Reports: Urinary Incontinence, UTI, Recurrent, Other ( See Below) Other Genitourinary History: implantable device interstim RLQ- removed 08/16/17 ; interstim neurotransmitter placed jan 2018-left buttocks. 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: Musculoskeletal History: Reports: Back Pain, Chronic, Neck Pain, Chronic, Osteoarthritis Other Musculoskeletal History: neck surgery Neurological History: Reports: Migraines, Seizure, Other (See Below) Other Neuro History: patient reports "nervous tics", nerve pain, dizziness Psychiatric History: Reports: Addiction, Anxiety, Depression, Suicide Attempt, Other (See Below) Other Psychiatric History: drug overdose, personality disorder, alcohol withdrawal Endocrine/Metabolic History: Reports: Hypothyroidism, Obesity/BMI 30+ Other Endocrine/Metabolic History: reports hypothyroidism 15 years ago that corrected itself Hematologic History: Reports: None Immunologic History: Reports: None Oncologic (Cancer) History: Reports: None Dermatologic History: Reports: Other (See Below) Other Dermatologic History: skin lesion - Infectious Disease History Infectious Disease History: Reports: Chicken Pox - Past Surgical History HEENT Surgical History: Reports: None Cardiovascular Surgical History: Reports: None Respiratory Surgical History: Reports: Lung Biopsies GI Surgical History: Reports: Appendectomy, Cholecystectomy, Colonoscopy, EGD Female Surgical History: Reports: Hysterectomy, Salpingo-Oophorectomy, Tubal Ligation, Other (See Below) Other Female Surgeries/Procedures: bladder sling 09/2017 Endocrine Surgical History: Reports: None Neurological Surgical History: Reports: C-Spine, Other (See Below) Other Neurological Surgeries/Procedures: Disc removed from her neck, titanium plate inserted in 2019. Musculoskeletal Surgical History: Reports: None Oncologic Surgical History: Reports: None Social & Family History - Family History Family Medical History: Noncontributory Cardiac: Reports: Bypass, CAD, Heart Failure - Tobacco Use Smoking Status *Q: Light Tobacco Smoker Years of Tobacco use: 15 Packs/Tins Daily: 1 Used Tobacco, but Quit: No - Caffeine Use Caffeine Use: Reports: Coffee - Alcohol Use Number of Drinks Per Day: 15 Date of Last Drink: 08/09/19 Time of Last Drink: 12:00 - Recreational Drug Use Recreational Drug Use: No - Living Situation & Occupation Living situation: Reports: , Other (with roomate) Occupation: Unemployed ED ROS GENERAL - Review of Systems Review Of Systems: See Below Constitutional: Reports: No Symptoms HEENT: Reports: No Symptoms Respiratory: Reports: No Symptoms Cardiovascular: Reports: Chest Pain. Denies: Edema, Palpitations, Syncope GI/Abdominal: Reports: Nausea, Vomiting. Denies: Constipation, Diarrhea Musculoskeletal: Reports: Neck Pain, Back Pain Skin: Reports: No Symptoms Psychiatric: Reports: Agitation, Anxiety Hematologic/Lymphatic: Reports: No Symptoms Immunologic: Reports: No Symptoms ED EXAM, GENERAL - Physical Exam Exam: See Below Exam Limited By: Other (Patient is quite anxious agitated and cannot sit still) General Appearance: Anxious, Moderate Distress Eye Exam: Bilateral Eye: Normal Inspection Ears: Normal External Exam, Normal Canal, Hearing Grossly Normal, Normal TMs Nose: Normal Inspection, Normal Mucosa, No Blood Throat/Mouth: Normal Oropharynx, Normal Voice, No Airway Compromise, Other ( Poor dentition) Head: Atraumatic, Normocephalic Neck: Normal Inspection, Supple, Non-Tender, Full Range of Motion. No: Lymphadenopathy (L), Lymphadenopathy (R) Respiratory/Chest: No Respiratory Distress, Lungs Clear, Normal Breath Sounds Cardiovascular: Regular Rate, Rhythm, No Edema, No Murmur GI/Abdominal: Normal Bowel Sounds, Soft, Other (Diffuse discomfort with palpation mostly periumbilical and right sided. No rigidity rebound or guarding noted) Back Exam: Normal Inspection. No: CVA Tenderness (L), CVA Tenderness (R) Extremities: Normal Inspection, No Pedal Edema Neurological: Alert, Other (Very anxious) Psychiatric: Anxious Course - Vital Signs Last Recorded V/S: Last Vital Signs Temp 35.5 C L 08/10/19 05:30 Pulse 99 08/10/19 05:30 Resp 20 08/10/19 05:30 BP 160/110 H 08/10/19 05:30 Pulse Ox 98 08/10/19 05:30 - Orders/Labs/Meds Orders: Active Orders 24 hr Category Date Time Status EKG 12 Lead [EKG Documentation Completion] [RC] STAT Care 08/10/19 05:35 Active Dextrose 5%-Lactated Ringers 1,000 ml Med 08/10/19 07:30 Active IV ASDIRECTED Medication Orders Dextrose/Lactated Ringer's (Dextrose 5%-Lactated Ringers) 1,000 mls @ 100 mls/ hr IV ASDIRECTED HÉCTOR Last Admin: 08/10/19 07:36 Dose: 100 mls/hr Labs: Laboratory Tests 08/10/19 08/10/19 08/10/19 Range/Units 07:16 07:16 07:16 PT 11.2 (9.7-12.0) SECONDS INR 1.03 Sodium 144 (136-145) mEq/L Potassium 4.0 (3.5-5.1) mEq/L Chloride 106 (98-107) mEq/L Carbon Dioxide 27 (21-32) mEq/L Anion Gap 15.0 (5-15) BUN 10 (7-18) mg/dL Creatinine 0.8 (0.55-1.02) mg/dL Est Cr Clr Drug Dosing 72.34 mL/min Estimated GFR (MDRD) > 60 (>60) mL/min BUN/Creatinine Ratio 12.5 L (14-18) Glucose 111 H (74-106) mg/dL Calcium 8.9 (8.5-10.1) mg/dL Magnesium 1.8 (1.8-2.4) mg/dl Total Bilirubin 0.8 (0.2-1.0) mg/dL AST 44 H (15-37) U/L ALT 47 (14-59) U/L Alkaline Phosphatase 134 H (46-116) U/L Troponin I < 0.017 (0.00-0.056) ng/mL Total Protein 7.3 (6.4-8.2) g/dl Albumin 3.8 (3.4-5.0) g/dl Globulin 3.5 gm/dL Albumin/Globulin Ratio 1.1 (1-2) Lipase 116 (73-393) U/L Urine Color (Yellow) Urine Appearance (Clear) Urine pH (5.0-8.0) Ur Specific [place] (1.005-1.030) Urine Protein (Negative) Urine Glucose (UA) (Negative) Urine Ketones (Negative) Urine Occult Blood (Negative) Urine Nitrite (Negative) Urine Bilirubin (Negative) Urine Urobilinogen (0.2-1.0) Ur Leukocyte Esterase (Negative) Urine RBC (0-5) /hpf Urine WBC (0-5) /hpf Ur Epithelial Cells (0-5) /hpf Urine Bacteria (FEW) /hpf Urine Mucus (FEW) /hpf Urine Opiates Screen (FHDTHM=581) Ur Buprenorphine Scrn (CUTOFF=10) Ur Oxycodone Screen (IUJ8IS=793) Urine Methadone Screen (BXKBSK=680) Ur Propoxyphene Screen (CQJFYT=902) Ur Barbiturates Screen (IGGVFB=666) Ur Tricyclics Screen (KUYMBR=651) Ur Phencyclidine Scrn (CUTOFF=25) Ur Amphetamine Screen (HKBHDB=389) U Methamphetamines Scrn (ISEAFS=821) U Benzodiazepines Scrn (DKFZHQ=459) U Cocaine Metab Screen (JPPOQR=856) U Marijuana (THC) Screen (CUTOFF=50) Ethyl Alcohol 0.00 (0.00) gm% Ketones (0.0-0.3) mM 08/10/19 08/10/19 08/10/19 Range/Units 07:16 09:00 09:00 PT (9.7-12.0) SECONDS INR Sodium (136-145) mEq/L Potassium (3.5-5.1) mEq/L Chloride (98-107) mEq/L Carbon Dioxide (21-32) mEq/L Anion Gap (5-15) BUN (7-18) mg/dL Creatinine (0.55-1.02) mg/dL Est Cr Clr Drug Dosing mL/min Estimated GFR (MDRD) (>60) mL/min BUN/Creatinine Ratio (14-18) Glucose (74-106) mg/dL Calcium (8.5-10.1) mg/dL Magnesium (1.8-2.4) mg/dl Total Bilirubin (0.2-1.0) mg/dL AST (15-37) U/L ALT (14-59) U/L Alkaline Phosphatase (46-116) U/L Troponin I (0.00-0.056) ng/mL Total Protein (6.4-8.2) g/dl Albumin (3.4-5.0) g/dl Globulin gm/dL Albumin/Globulin Ratio (1-2) Lipase (73-393) U/L Urine Color Yellow (Yellow) Urine Appearance Clear (Clear) Urine pH 6.0 (5.0-8.0) Ur Specific [place] > or = 1.030 (1.005-1.030) Urine Protein 1+ H (Negative) Urine Glucose (UA) Negative (Negative) Urine Ketones Negative (Negative) Urine Occult Blood Negative (Negative) Urine Nitrite Negative (Negative) Urine Bilirubin Negative (Negative) Urine Urobilinogen 0.2 (0.2-1.0) Ur Leukocyte Esterase Negative (Negative) Urine RBC 0-5 (0-5) /hpf Urine WBC 0-5 (0-5) /hpf Ur Epithelial Cells 20-30 H (0-5) /hpf Urine Bacteria Moderate H (FEW) /hpf Urine Mucus Few (FEW) /hpf Urine Opiates Screen Negative (CBFEEL=667) Ur Buprenorphine Scrn Negative (CUTOFF=10) Ur Oxycodone Screen Negative (QFU1KB=476) Urine Methadone Screen Negative (KEMLFZ=015) Ur Propoxyphene Screen Negative (YSLSVT=558) Ur Barbiturates Screen Negative (TCZEZK=867) Ur Tricyclics Screen Negative (DOWAHF=203) Ur Phencyclidine Scrn Negative (CUTOFF=25) Ur Amphetamine Screen Negative (WXTBHR=285) U Methamphetamines Scrn Negative (JFVMRD=158) U Benzodiazepines Scrn Presumptive positive H (HNIEMW=646) U Cocaine Metab Screen Negative (LVOWHK=051) U Marijuana (THC) Screen Negative (CUTOFF=50) Ethyl Alcohol (0.00) gm% Ketones 0.14 (0.0-0.3) mM Meds: Medications Generic Name Dose Route Start Last Admin Trade Name Freq PRN Reason Stop Dose Admin Dextrose/Lactated Ringer's 1,000 mls @ 100 mls/hr 08/10/19 07:30 08/10/19 07: 36 Dextrose 5%-Lactated Ringers IV 100 mls/hr ASDIRECTED HÉCTOR Administration Discontinued Medications Generic Name Dose Route Start Last Admin Trade Name Ashvin PRN Reason Stop Dose Admin Al Hydroxide/Mg Hydroxide 30 ml 08/10/19 08:58 08/10/19 09:12 Mag-Al Plus PO 08/10/19 08:59 30 ml ONETIME ONE Administration Al Hydroxide/Mg Hydroxide 30 0 ml 08/10/19 05:46 08/10/19 06:48 ml/ Lidocaine HCl 15 ml PO 08/10/19 05:47 45 ml ONETIME ONE Administration Lorazepam 1 mg 08/10/19 05:46 08/10/19 08:34 Ativan IVPUSH 08/10/19 05:47 Not Given ONETIME ONE Lorazepam 1 mg 08/10/19 06:17 08/10/19 06:22 Ativan IM 08/10/19 06:18 Not Given ONETIME ONE Lorazepam 1 mg 08/10/19 06:17 08/10/19 06:22 Ativan IM 08/10/19 06:18 Not Given ONETIME ONE Lorazepam 1 mg 08/10/19 06:22 08/10/19 06:20 Ativan IVPUSH 08/10/19 06:23 1 mg ONETIME ONE Administration Lorazepam 1 mg 08/10/19 07:26 08/10/19 07:34 Ativan IVPUSH 08/10/19 07:27 1 mg ONETIME ONE Administration Lorazepam 1 mg 08/10/19 08:58 08/10/19 09:11 Ativan IVPUSH 08/10/19 08:59 1 mg ONETIME ONE Administration Ondansetron HCl 4 mg 08/10/19 05:46 08/10/19 08:37 Zofran IVPUSH 08/10/19 05:47 Not Given ONETIME ONE Ondansetron HCl 8 mg 08/10/19 06:06 08/10/19 06:12 Zofran Odt PO 08/10/19 06:07 8 mg ONETIME ONE Administration - Re-Assessments/Exams Free Text/Narrative Re-Assessment/Exam: 08/10/19 07:16 Patient is doing better after getting some IM Ativan oral Zofran awaiting the results of the GI cocktail labs still trying to be obtained. Currently change of shift further care and disposition per Dr. Santamaria. Departure - Departure Disposition: Home, Self-Care 01 Clinical Impression: Chronic pain disorder, Alcohol abuse Alcohol withdrawal syndrome Qualifiers: Complication of substance-induced condition: uncomplicated Qualified Code(s): F10.230 - Alcohol dependence with withdrawal, uncomplicated - Discharge Information Prescriptions: LORazepam [Ativan] 1 mg PO ASDIRECTED #28 tab Instructions: Alcohol Use Disorder, Alcohol Withdrawal Syndrome Referrals: Consuelo Julian RES COUNSELOR [Primary Care Provider] - Additional Instructions: Evaluation in the emergency room this morning in regards to acute alcohol withdrawal symptoms. You have been drinking heavily for several months and last drank within the last 24 hours. Test proved to be normal. Blood alcohol is 0.0 at this time. Have received Ativan 3 mg intravenously while in the department for alcohol withdrawal symptoms. It is my suggestion that you travel to [facility] after leaving the department for an acute intake evaluation and ideally an admission to the residential crisis bed for alcohol withdrawal treatment and counseling. Ativan will be prescribed to aid withdrawal from alcohol over the next 8 days while in the residential crisis center. Sepsis Event Note - Evaluation Sepsis Screening Result: No Definite Risk - Focused Exam Vital Signs: Vital Signs Temp Pulse Resp BP Pulse Ox 08/10/19 05:30 35.5 C L 99 20 160/110 H 98 Date Exam was Performed: 08/10/19 Time Exam was Performed: 07:16 - My Orders Last 24 Hours: My Active Orders 08/10/19 07:30 Dextrose 5%-Lactated Ringers 1,000 ml IV ASDIRECTED - Assessment/Plan Last 24 Hours: My Active Orders 08/10/19 07:30 Dextrose 5%-Lactated Ringers 1,000 ml IV ASDIRECTED <Laz Santamaria - Last Filed: 08/10/19 10:32> ED HPI GENERAL MEDICAL PROBLEM - History of Present Illness Onset: Gradual Onset Date: 08/09/19 (Last drink was apparently at 10:00 yesterday morning) Duration: Day(s):, Getting Worse Location: Reports: Generalized Quality: Reports: Other (Has pain with burning component.) Severity: Moderate Improves with: Reports: None Worsens with: Reports: None Context: Reports: Other (Alcoholism.). Denies: Activity, Exercise, Lifting, Sick Contact, Trauma Associated Symptoms: Reports: Chest Pain (Is to be referred from the epigastrium and believed to be gastroesophageal reflux esophagitis in origin) Treatments CARGO OPERATIONS AGENT: Reports: Other (see below) (None.) EKG INTERPRETATION EKG Date: 08/10/19 Time: 05:35 Rhythm: NSR Rate (Beats/Min): 94 [place]: Normal P-Wave: Present QRS: Normal ST-T: Other (During baseline. T wave flattening aVL nonspecific finding) QT: Prolonged EKG Interpretation Comments: Borderline ECG no signs of acute ischemia Course - Orders/Labs/Meds Labs: Laboratory Tests 08/10/19 08/10/19 08/10/19 Range/Units 07:16 07:16 07:16 PT 11.2 (9.7-12.0) SECONDS INR 1.03 Sodium 144 (136-145) mEq/L Potassium 4.0 (3.5-5.1) mEq/L Chloride 106 (98-107) mEq/L Carbon Dioxide 27 (21-32) mEq/L Anion Gap 15.0 (5-15) BUN 10 (7-18) mg/dL Creatinine 0.8 (0.55-1.02) mg/dL Est Cr Clr Drug Dosing 72.34 mL/min Estimated GFR (MDRD) > 60 (>60) mL/min BUN/Creatinine Ratio 12.5 L (14-18) Glucose 111 H (74-106) mg/dL Calcium 8.9 (8.5-10.1) mg/dL Magnesium 1.8 (1.8-2.4) mg/dl Total Bilirubin 0.8 (0.2-1.0) mg/dL AST 44 H (15-37) U/L ALT 47 (14-59) U/L Alkaline Phosphatase 134 H (46-116) U/L Troponin I < 0.017 (0.00-0.056) ng/mL Total Protein 7.3 (6.4-8.2) g/dl Albumin 3.8 (3.4-5.0) g/dl Globulin 3.5 gm/dL Albumin/Globulin Ratio 1.1 (1-2) Lipase 116 (73-393) U/L Urine Color (Yellow) Urine Appearance (Clear) Urine pH (5.0-8.0) Ur Specific [place] (1.005-1.030) Urine Protein (Negative) Urine Glucose (UA) (Negative) Urine Ketones (Negative) Urine Occult Blood (Negative) Urine Nitrite (Negative) Urine Bilirubin (Negative) Urine Urobilinogen (0.2-1.0) Ur Leukocyte Esterase (Negative) Urine RBC (0-5) /hpf Urine WBC (0-5) /hpf Ur Epithelial Cells (0-5) /hpf Urine Bacteria (FEW) /hpf Urine Mucus (FEW) /hpf Urine Opiates Screen (QBPADP=945) Ur Buprenorphine Scrn (CUTOFF=10) Ur Oxycodone Screen (CYS2HG=386) Urine Methadone Screen (OXSSRL=971) Ur Propoxyphene Screen (DZUTVH=727) Ur Barbiturates Screen (NNYCLX=809) Ur Tricyclics Screen (KGTTBT=436) Ur Phencyclidine Scrn (CUTOFF=25) Ur Amphetamine Screen (XCHOVP=891) U Methamphetamines Scrn (ISQKBU=130) U Benzodiazepines Scrn (JUEBCQ=282) U Cocaine Metab Screen (PNVOWZ=735) U Marijuana (THC) Screen (CUTOFF=50) Ethyl Alcohol 0.00 (0.00) gm% Ketones (0.0-0.3) mM 08/10/19 08/10/19 08/10/19 Range/Units 07:16 09:00 09:00 PT (9.7-12.0) SECONDS INR Sodium (136-145) mEq/L Potassium (3.5-5.1) mEq/L Chloride (98-107) mEq/L Carbon Dioxide (21-32) mEq/L Anion Gap (5-15) BUN (7-18) mg/dL Creatinine (0.55-1.02) mg/dL Est Cr Clr Drug Dosing mL/min Estimated GFR (MDRD) (>60) mL/min BUN/Creatinine Ratio (14-18) Glucose (74-106) mg/dL Calcium (8.5-10.1) mg/dL Magnesium (1.8-2.4) mg/dl Total Bilirubin (0.2-1.0) mg/dL AST (15-37) U/L ALT (14-59) U/L Alkaline Phosphatase (46-116) U/L Troponin I (0.00-0.056) ng/mL Total Protein (6.4-8.2) g/dl Albumin (3.4-5.0) g/dl Globulin gm/dL Albumin/Globulin Ratio (1-2) Lipase (73-393) U/L Urine Color Yellow (Yellow) Urine Appearance Clear (Clear) Urine pH 6.0 (5.0-8.0) Ur Specific [place] > or = 1.030 (1.005-1.030) Urine Protein 1+ H (Negative) Urine Glucose (UA) Negative (Negative) Urine Ketones Negative (Negative) Urine Occult Blood Negative (Negative) Urine Nitrite Negative (Negative) Urine Bilirubin Negative (Negative) Urine Urobilinogen 0.2 (0.2-1.0) Ur Leukocyte Esterase Negative (Negative) Urine RBC 0-5 (0-5) /hpf Urine WBC 0-5 (0-5) /hpf Ur Epithelial Cells 20-30 H (0-5) /hpf Urine Bacteria Moderate H (FEW) /hpf Urine Mucus Few (FEW) /hpf Urine Opiates Screen Negative (QMFCXJ=882) Ur Buprenorphine Scrn Negative (CUTOFF=10) Ur Oxycodone Screen Negative (BOY2HF=439) Urine Methadone Screen Negative (YWGIYL=838) Ur Propoxyphene Screen Negative (KLBPIM=945) Ur Barbiturates Screen Negative (XUKTLO=988) Ur Tricyclics Screen Negative (ESCQHO=144) Ur Phencyclidine Scrn Negative (CUTOFF=25) Ur Amphetamine Screen Negative (ZSKDGQ=465) U Methamphetamines Scrn Negative (EDCCAN=400) U Benzodiazepines Scrn Presumptive positive H (ENRDHJ=896) U Cocaine Metab Screen Negative (BSJEUV=088) U Marijuana (THC) Screen Negative (CUTOFF=50) Ethyl Alcohol (0.00) gm% Ketones 0.14 (0.0-0.3) mM - Re-Assessments/Exams Free Text/Narrative Re-Assessment/Exam: 08/10/19 07:[address] Shell at change of shift. Is are pending. An IV has been started and therefore she will be given fluids D5 water at 100 mils per hour. Has received 2 mg of Ativan since being admitted to the ED. audible chest x-ray carried out is within normal limits. No significant cardiomegaly. Lung fontana are clear. 08/10/19 08:00 Chemistry is back. Coags reveal a PT of 11.2 with an INR of 1.03. Sodium is 144 with a potassium of 4.0. Chloride is 106 with a bicarb of 27. Anion gap is 15.0. BUN is 10 with a creatinine of 0.8. GFR is greater than 60. Glucose is 111 with a calcium of 8.9. Magnesium is 1.8 bilirubin is 0.8 AST is minimally elevated at 44 ALT is 47 alk phos days is 134. Troponin is less than 0.017. Total protein 7.3 with an albumin fraction of 3.8. Lipase is 116. Current blood alcohol is 0.00 Serum ketones are normal at 0.14. I will asked the social media designer to see in consultation. She is possibly a candidate for residential crisis bed. 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 08/10/19 08:59 patient was sleeping peacefully up until a few minutes ago. She claims that the nurse has not seen her for over an hour however this is untrue. Patient is stating that she is feeling tremulous and agitated once again. She is also having significant heartburn. We will give her Maalox 30 mils p.o. Ativan 1 mg IV. We are still waiting to see if bed labs will exceptor or at least see her in consultation with a view to whether or not she is going to be a candidate for the residential crisis center. She has been there multiple times in the past and therefore there is some reservation on their part as to serious she is about stopping drinking. 08/10/19 09:21 social media designer has identified that Perfecto will go to [facility] when she leaves the ED. She will be assessed at that facility and there is a bed available at the residential crisis center. If she gets admitted to the Center I will write prescriptions for Ativan that she can use for detox over the next 5 to 7 days. However I am unwilling to write the prescription in case she decides not to go to the residential crisis center and has a history of drug abuse. 08/10/19 10:00 urinalysis revealed 1+ proteinuria and 20-30 epithelial cells and moderate bacteria suggesting contaminated urine specimen. Urine drug screen was presumptively positive for benzodiazepines which we had given her. He discharged from the ED with plans to travel to [facility] to see if she is a candidate for admission to the residential crisis center. Departure - Departure Time of Disposition: 10:00 Condition: Fair - Discharge Information *PRESCRIPTION DRUG MONITORING PROGRAM REVIEWED*: Not Applicable *COPY OF PRESCRIPTION DRUG MONITORING REPORT IN PATIENT LEONEL: Not Applicable Sepsis Event Note - Focused Exam Date Exam was Performed: 08/10/19 Time Exam was Performed: 10:30
[2019-08-10] MEDS ORDERED: LORazepam 2 MG/ML SDV IM ONE ×2 (06:17)
--- NOTE | 2019-08-10 07:17 | CR ---
Chest: Portable view of the chest was obtained. Comparison: Prior chest x-ray of 07/11/19. Heart size and mediastinum are normal. Lungs are clear with no acute parenchymal change. Previous cervical spine surgery is noted. Bony structures are grossly intact. Impression: 1. Nothing acute is appreciated on portable chest x-ray. Diagnostic code #2 This report was dictated in MDT
[2019-08-10] MEDS ORDERED: Dextrose 5%-Lactated Ringers 1,000 ML IV SCH (07:30)
[2019-08-10] MEDS ORDERED: Aluminum Hydroxide/Magnesium Hydroxide/Simethicone Susp 30 ML Cup PO ONE (08:58)
== END 2019-08-10 10:47 | disposition home or self-care (01) ==
LOC: JD.ED 05:29
DX: F10.230 Alcohol dependence with withdrawal, uncomplicated (principal); G89.4 Chronic pain syndrome; K21.9 Gastro-esophageal reflux disease without esophagitis; E03.9 Hypothyroidism, unspecified; M19.90 Unspecified osteoarthritis, unspecified site; E66.9 Obesity, unspecified; F17.210 Nicotine dependence, cigarettes, uncomplicated; Z68.33 Body mass index [BMI] 33.0-33.9, adult; Z88.6 Allergy status to analgesic agent; Z88.2 Allergy status to sulfonamides; Z88.8 Allergy status to other drugs, medicaments and biological substances; Z88.5 Allergy status to narcotic agent
CPT/HCPCS: 36415; 71045; 71045-26; 80053; 80306; 80307; 81001; 82009; 83690; 83735; 84484; 85610; 93005; 96361; 96374; 96376; 99285-25; A9270-GY; J2060; J7121

== ENCOUNTER 2019-08-12 09:40 | Emergency (ER) | payer MEDICAID ==
[2019-08-12 09:53] VITALS: PULSE 104
[2019-08-12] MEDS ORDERED: Ondansetron 4 MG Tab.DIS PO ONE (10:04)
[2019-08-12] MEDS ORDERED: HYDROmorphone 1 MG/ML Syringe IM ONE ×2 (10:04→12:04)
--- NOTE | 2019-08-12 10:26 | EDM.PDOC ---
ED HPI GENERAL MEDICAL PROBLEM - General Chief Complaint: Chest Pain Stated Complaint: [facility] Time Seen by Provider: 08/12/19 09:52 Source of Information: Reports: Patient, RN Notes Reviewed - History of Present Illness INITIAL COMMENTS - FREE TEXT/NARRATIVE: 53 yr old female has been brought in by ambulance with L chest pain that started about 1 hr ago. The pain is sharp, worse with a deep inspiration. Has not been ill with fever, cough. She does not feel short of breath. She has been on and off with alcohol. Has had a lot of nausea and vomiting with that. She "quit smoking about 10 days ago" Left Chest Pain Score (Numeric/FACES): 10 - Related Data Allergies Allergy/AdvReac Type Severity Reaction Status Date / Time ibuprofen Allergy Severe Rash Verified 08/12/19 09:54 ketorolac [From Toradol] Allergy Severe Rash Verified 08/12/19 09:54 Sulfa (Sulfonamide Allergy Severe Rash Verified 08/12/19 09:54 Antibiotics) sumatriptan [From Imitrex] Allergy Severe Anaphylactic Verified 08/12/19 09:54 Shock tramadol Allergy Severe Rash Verified 08/12/19 09:54 diphenhydramine AdvReac Severe Anxiety Verified 08/12/19 09:54 [From Benadryl] Home Meds: Home Meds Omeprazole Magnesium [Prilosec Otc] 20 mg PO DAILY 12/01/17 [History] Levothyroxine [Synthroid] 50 mcg PO ACBREAKFAST tablet 12/21/17 [Rx] LORazepam [Ativan] 1 mg PO TID PRN #12 tab 07/11/19 [Rx] Ondansetron [Zofran ODT] 4 mg PO Q6H PRN #20 tab.dis 08/09/19 [Rx] LORazepam [Ativan] 1 mg PO ASDIRECTED #28 tab 08/10/19 [Rx] Venlafaxine [Effexor XR] 150 mg PO DAILY 08/12/19 [History] Past Medical History HEENT History: Reports: Allergic Rhinitis, Impaired Vision Other HEENT History: wears corrective lenses, dental infection Cardiovascular History: Reports: High Cholesterol Respiratory History: Reports: Sleep Apnea, Other (See Below) Other Respiratory History: left lung nodule, restrictive lung disease, cough, shortness of breath, pleural thickening, pleuritic chest pain Gastrointestinal History: Reports: Gastritis, GERD, Other (See Below) Other Gastrointestinal History: esophageal stricture, abdominal pain lower, elevated liver enzymes Genitourinary History: Reports: Urinary Incontinence, UTI, Recurrent, Other ( See Below) Other Genitourinary History: implantable device interstim RLQ- removed 08/16/17 ; interstim neurotransmitter placed jan 2018-left buttocks. 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: Musculoskeletal History: Reports: Back Pain, Chronic, Neck Pain, Chronic, Osteoarthritis Other Musculoskeletal History: neck surgery Neurological History: Reports: Migraines, Seizure, Other (See Below) Other Neuro History: patient reports "nervous tics", nerve pain, dizziness Psychiatric History: Reports: Addiction, Anxiety, Depression, Suicide Attempt, Other (See Below) Other Psychiatric History: drug overdose, personality disorder, alcohol withdrawal Endocrine/Metabolic History: Reports: Hypothyroidism, Obesity/BMI 30+ Other Endocrine/Metabolic History: reports hypothyroidism 15 years ago that corrected itself Hematologic History: Reports: None Immunologic History: Reports: None Oncologic (Cancer) History: Reports: None Dermatologic History: Reports: Other (See Below) Other Dermatologic History: skin lesion - Infectious Disease History Infectious Disease History: Reports: Chicken Pox - Past Surgical History HEENT Surgical History: Reports: None Cardiovascular Surgical History: Reports: None Respiratory Surgical History: Reports: Lung Biopsies GI Surgical History: Reports: Appendectomy, Cholecystectomy, Colonoscopy, EGD Female Surgical History: Reports: Hysterectomy, Salpingo-Oophorectomy, Tubal Ligation, Other (See Below) Other Female Surgeries/Procedures: bladder sling 09/2017 Endocrine Surgical History: Reports: None Neurological Surgical History: Reports: C-Spine, Other (See Below) Other Neurological Surgeries/Procedures: Disc removed from her neck, titanium plate inserted in 2019. Musculoskeletal Surgical History: Reports: None Oncologic Surgical History: Reports: None Social & Family History - Family History Family Medical History: Noncontributory Cardiac: Reports: Bypass, CAD, Heart Failure - Caffeine Use Caffeine Use: Reports: Coffee - Living Situation & Occupation Living situation: Reports: , Other (with roomate) Occupation: Unemployed ED ROS GENERAL - Review of Systems Review Of Systems: See Below Constitutional: Denies: Fever, Chills, Diaphoresis HEENT: Denies: Throat Pain Respiratory: Reports: Pleuritic Chest Pain, Cough (occasional). Denies: Shortness of Breath Cardiovascular: Reports: Chest Pain GI/Abdominal: Reports: Nausea, Vomiting. Denies: Abdominal Pain Musculoskeletal: Denies: Shoulder Pain, Arm Pain, Back Pain Skin: Reports: No Symptoms Neurological: Reports: No Symptoms ED EXAM, GENERAL - Physical Exam Exam: See Below General Appearance: Alert, Anxious, Mild Distress Eye Exam: Bilateral Eye: PERRL Head: Atraumatic. No: Facial Swelling Neck: Supple Respiratory/Chest: No Respiratory Distress, Lungs Clear, Normal Breath Sounds, Chest Non-Tender. No: Respiratory Distress Cardiovascular: Tachycardia GI/Abdominal: Soft, Non-Tender Back Exam: No: CVA Tenderness (L), CVA Tenderness (R) Extremities: Normal Inspection. No: Pedal Edema, Leg Pain Skin Exam: Warm, Dry, Normal Color, No Rash EKG INTERPRETATION EKG Date: 08/12/19 Rhythm: NSR P-Wave: Present QRS: Normal ST-T: Normal Course - Vital Signs Last Recorded V/S: Last Vital Signs Temp 97.2 F 08/12/19 09:47 Pulse 104 H 08/12/19 09:47 Resp 20 08/12/19 09:47 BP 134/104 H 08/12/19 09:47 Pulse Ox 99 08/12/19 09:47 - Orders/Labs/Meds Orders: Active Orders 24 hr Category Date Time Status EKG 12 Lead [EKG Documentation Completion] [RC] STAT Care 08/12/19 09:54 Active Labs: Laboratory Tests 08/12/19 08/12/19 08/12/19 Range/Units 10:14 10:14 10:55 WBC 7.06 (3.98-10.04) K/mm3 RBC 4.75 (3.98-5.22) M/mm3 Hgb 14.8 (11.2-15.7) gm/dl Hct 45.2 H (34.1-44.9) % MCV 95.2 H (79.4-94.8) fl MCH 31.2 (25.6-32.2) pg MCHC 32.7 (32.2-35.5) g/dl RDW Std Deviation 44.2 (36.4-46.3) fL Plt Count 256 D (182-369) K/mm3 MPV 10.3 (9.4-12.3) fl Neut % (Auto) 64.6 (34.0-71.1) % Lymph % (Auto) 24.6 (19.3-51.7) % [place] % (Auto) 7.5 (4.7-12.5) % Eos % (Auto) 2.1 (0.7-5.8) Baso % (Auto) 0.4 (0.1-1.2) % Neut # (Auto) 4.55 (1.56-6.13) K/mm3 Lymph # (Auto) 1.74 (1.18-3.74) K/mm3 [place] # (Auto) 0.53 H (0.24-0.36) K/mm3 Eos # (Auto) 0.15 (0.04-0.36) K/mm3 Baso # (Auto) 0.03 (0.01-0.08) K/mm3 D-Dimer, Quantitative < 0.19 L (0.19-0.50) mg/L Sodium 140 (136-145) mEq/L Potassium 3.8 (3.5-5.1) mEq/L Chloride 104 (98-107) mEq/L Carbon Dioxide 25 (21-32) mEq/L Anion Gap 14.8 (5-15) BUN 8 (7-18) mg/dL Creatinine 0.8 (0.55-1.02) mg/dL Est Cr Clr Drug Dosing 72.34 mL/min Estimated GFR (MDRD) > 60 (>60) mL/min BUN/Creatinine Ratio 10.0 L (14-18) Glucose 131 H (74-106) mg/dL Calcium 8.9 (8.5-10.1) mg/dL Total Bilirubin 0.6 (0.2-1.0) mg/dL AST 44 H (15-37) U/L ALT 41 (14-59) U/L Alkaline Phosphatase 134 H (46-116) U/L Troponin I < 0.017 (0.00-0.056) ng/mL Total Protein 7.0 (6.4-8.2) g/dl Albumin 3.4 (3.4-5.0) g/dl Globulin 3.6 gm/dL Albumin/Globulin Ratio 0.9 L (1-2) Meds: Medications Discontinued Medications Generic Name Dose Route Start Last Admin Trade Name Freq PRN Reason Stop Dose Admin Acetaminophen 975 mg 08/12/19 11:28 08/12/19 11:45 Tylenol PO 08/12/19 11:29 975 mg NOW ONE Administration Hydromorphone HCl 1 mg 08/12/19 10:04 08/12/19 10:13 Dilaudid IM 08/12/19 10:05 1 mg ONETIME ONE Administration Hydromorphone HCl 1 mg 08/12/19 12:04 Dilaudid IM 08/12/19 12:05 ONETIME ONE Lorazepam 1 mg 08/12/19 10:35 08/12/19 11:01 Ativan PO 08/12/19 10:36 1 mg ONETIME ONE Administration Ondansetron HCl 4 mg 08/12/19 10:04 08/12/19 10:13 Zofran Odt PO 08/12/19 10:05 4 mg ONETIME ONE Administration Departure - Departure Time of Disposition: 12:11 Disposition: Home, Self-Care 01 Condition: Fair Clinical Impression: Chest wall pain Referrals: Consuelo Julian LAYUP WORKER [Primary Care Provider] - Forms: ED Department Discharge Additional Instructions: Your heart and lungs have checked out well today. You have been given zofran ODT for nausea, Dilaudid IM for pain times 2 and 975 mg tylenol. You can alternate ice and heat as needed for any further discomfort. This should get better over the next few days. Follow up with your regular medical provider as needed. Sepsis Event Note - Evaluation Sepsis Screening Result: No Definite Risk - Focused Exam Vital Signs: Vital Signs Temp Pulse Resp BP Pulse Ox 08/12/19 09:47 97.2 F 104 H 20 134/104 H 99 Date Exam was Performed: 08/12/19 Time Exam was Performed: 12:11 - My Orders Last 24 Hours: My Active Orders 08/12/19 09:54 EKG 12 Lead [EKG Documentation Completion] [RC] STAT - Assessment/Plan Last 24 Hours: My Active Orders 08/12/19 09:54 EKG 12 Lead [EKG Documentation Completion] [RC] STAT
[2019-08-12] MEDS ORDERED: LORazepam 1 MG Tab PO ONE (10:35)
--- NOTE | 2019-08-12 11:13 | CR ---
Asked: Portable view of the chest was obtained. Comparison: Prior chest x-ray of 08/10/19. Heart size and mediastinum are within normal limits. Lungs show no acute parenchymal change. Previous cervical spine surgery is noted. No change from previous chest x-ray is seen. Impression: 1. Nothing acute is appreciated on portable chest x-ray. Diagnostic code #2 This report was dictated in MDT
[2019-08-12] MEDS ORDERED: Acetaminophen 325 MG Tab PO ONE (11:28)
[2019-08-12 12:41] VITALS: BP 125/80
== END 2019-08-12 12:36 | disposition home or self-care (01) ==
LOC: JD.ED 09:40
DX: R07.89 Other chest pain (principal); E03.9 Hypothyroidism, unspecified; F41.9 Anxiety disorder, unspecified; F32.9 Major depressive disorder, single episode, unspecified; E66.9 Obesity, unspecified; Z68.31 Body mass index [BMI] 31.0-31.9, adult; Z87.891 Personal history of nicotine dependence; Z88.6 Allergy status to analgesic agent; Z88.2 Allergy status to sulfonamides; Z88.8 Allergy status to other drugs, medicaments and biological substances; Z79.899 Other long term (current) drug therapy; K21.9 Gastro-esophageal reflux disease without esophagitis
CPT/HCPCS: 36415; 71045; 80053; 84484; 85025; 85379; 93005; 96372; 99285; A9270; J1170

== ENCOUNTER 2019-08-21 13:04 | Emergency (ER) | payer MEDICAID ==
[2019-08-21 13:20] VITALS: BP 118/82; PULSE 81
--- NOTE | 2019-08-21 13:30 | EDM.PDOC ---
ED HPI GENERAL MEDICAL PROBLEM - General Chief Complaint: Allergic Reaction Stated Complaint: SKIN COMPLAINT Time Seen by Provider: 08/21/19 13:30 Source of Information: Reports: Patient History Limitations: Reports: No Limitations - History of Present Illness INITIAL COMMENTS - FREE TEXT/NARRATIVE: 53-year-old female presents to the ED with a new onset rash particularly on her upper extremities nape of neck lower back and also lower extremities to the knee. She states they are mildly itchy. They are also burning and somewhat painful. Patient appreciates that she was started on amoxicillin 3 days ago by the dentist after having all of her teeth removed. She was not known to be allergic to penicillin. No shortness of breath or swelling of the tongue or throat.? Rash started today. Onset: Today Onset Date: 08/21/19 Onset Time: 08:00 Duration: Hour(s): Location: Reports: Generalized Quality: Reports: Other (Generalized rash particularly upper extremities with urticaria) Severity: Moderate Improves with: Reports: None Worsens with: Reports: None Context: Denies: Activity, Exercise, Lifting, Sick Contact, Trauma, Other Associated Symptoms: Reports: No Other Symptoms, Other (No shortness of breath or swelling of the throat.) Treatments CLINICAL COUNSELOR: Reports: Other (see below) (1.) Left Arm Pain Score (Numeric/FACES): 7 - Related Data Allergies Allergy/AdvReac Type Severity Reaction Status Date / Time ibuprofen Allergy Severe Rash Verified 08/21/19 13:20 ketorolac [From Toradol] Allergy Severe Rash Verified 08/21/19 13:20 Sulfa (Sulfonamide Allergy Severe Rash Verified 08/21/19 13:20 Antibiotics) sumatriptan [From Imitrex] Allergy Severe Anaphylactic Verified 08/21/19 13:20 Shock tramadol Allergy Severe Rash Verified 08/21/19 13:20 diphenhydramine AdvReac Severe Anxiety Verified 08/21/19 13:20 [From Benadryl] Home Meds: Home Meds Omeprazole Magnesium [Prilosec Otc] 20 mg PO DAILY 12/01/17 [History] Levothyroxine [Synthroid] 50 mcg PO ACBREAKFAST tablet 12/21/17 [Rx] LORazepam [Ativan] 1 mg PO TID PRN #12 tab 07/11/19 [Rx] Ondansetron [Zofran ODT] 4 mg PO Q6H PRN #20 tab.dis 08/09/19 [Rx] LORazepam [Ativan] 1 mg PO ASDIRECTED #28 tab 08/10/19 [Rx] Venlafaxine [Effexor XR] 150 mg PO DAILY 08/12/19 [History] Clindamycin HCl 300 mg PO TID #15 capsule 08/21/19 [Rx] oxyCODONE HCl/Acetaminophen [Percocet 5-325 mg Tablet] 1 - 2 each PO Q4H PRN # 15 tablet 08/21/19 [Rx] Past Medical History HEENT History: Reports: Allergic Rhinitis, Impaired Vision Other HEENT History: wears corrective lenses, dental infection Cardiovascular History: Reports: High Cholesterol Respiratory History: Reports: Sleep Apnea, Other (See Below) Other Respiratory History: left lung nodule, restrictive lung disease, cough, shortness of breath, pleural thickening, pleuritic chest pain Gastrointestinal History: Reports: Gastritis, GERD, Other (See Below) Other Gastrointestinal History: esophageal stricture, abdominal pain lower, elevated liver enzymes Genitourinary History: Reports: Urinary Incontinence, UTI, Recurrent, Other ( See Below) Other Genitourinary History: implantable device interstim RLQ- removed 08/16/17 ; interstim neurotransmitter placed jan 2018-left buttocks. 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: Musculoskeletal History: Reports: Back Pain, Chronic, Neck Pain, Chronic, Osteoarthritis Other Musculoskeletal History: neck surgery Neurological History: Reports: Migraines, Seizure, Other (See Below) Other Neuro History: patient reports "nervous tics", nerve pain, dizziness Psychiatric History: Reports: Addiction, Anxiety, Depression, Suicide Attempt, Other (See Below) Other Psychiatric History: drug overdose, personality disorder, alcohol withdrawal Endocrine/Metabolic History: Reports: Hypothyroidism, Obesity/BMI 30+ Other Endocrine/Metabolic History: reports hypothyroidism 15 years ago that corrected itself Hematologic History: Reports: None Immunologic History: Reports: None Oncologic (Cancer) History: Reports: None Dermatologic History: Reports: Other (See Below) Other Dermatologic History: skin lesion - Infectious Disease History Infectious Disease History: Reports: Chicken Pox - Past Surgical History HEENT Surgical History: Reports: None Cardiovascular Surgical History: Reports: None Respiratory Surgical History: Reports: Lung Biopsies GI Surgical History: Reports: Appendectomy, Cholecystectomy, Colonoscopy, EGD Female Surgical History: Reports: Hysterectomy, Salpingo-Oophorectomy, Tubal Ligation, Other (See Below) Other Female Surgeries/Procedures: bladder sling 09/2017 Endocrine Surgical History: Reports: None Neurological Surgical History: Reports: C-Spine, Other (See Below) Other Neurological Surgeries/Procedures: Disc removed from her neck, titanium plate inserted in 2019. Musculoskeletal Surgical History: Reports: None Oncologic Surgical History: Reports: None Social & Family History - Family History Family Medical History: Noncontributory Cardiac: Reports: Bypass, CAD, Heart Failure - Tobacco Use Smoking Status *Q: Current Every Day Smoker Years of Tobacco use: 15 Packs/Tins Daily: 0.2 - Caffeine Use Caffeine Use: Reports: None - Recreational Drug Use Recreational Drug Use: No - Living Situation & Occupation Living situation: Reports: , Other (with roomate) Occupation: Unemployed ED ROS ALLERGIC REACTION - Review of Systems Review Of Systems: See Below Constitutional: Reports: Fatigue, Decreased Appetite. Denies: Fever, Chills, Malaise, Weakness, Weight Loss HEENT: Reports: Dental Pain (She recently had all of her teeth removed. Several of them were broken off even with the gingiva and removed by oral surgeon. This done 3 days ago.) Respiratory: Reports: No Symptoms Cardiovascular: Reports: No Symptoms Endocrine: Reports: Fatigue GI/Abdominal: Reports: No Symptoms : Reports: Frequency Musculoskeletal: Reports: Neck Pain, Back Pain Skin: Reports: Other (Currently has a generalized erythema of the upper extremities particularly the shoulders to elbows. Urticaria present in multiple areas) Neurological: Reports: No Symptoms Psychiatric: Reports: No Symptoms Hematologic/Lymphatic: Reports: No Symptoms ED EXAM GENERAL NO PERIP PULSE - Physical Exam Exam: See Below Exam Limited By: No Limitations General Appearance: Alert, WD/WN, No Apparent Distress, Other (Vital signs reveal temperature 36.6 with a heart rate of 81. Respiratory rate is 16 BP 118/ 82 pulse ox 99% on room air) Eye Exam: Bilateral Eye: Normal Inspection, PERRL Throat/Mouth: Other (Evidence of recent multiple excision of teeth present with sutures present in the gingiva both upper and lower were teeth have been removed. No active bleeding. Wounds appear to be clean and just starting to heal without any signs of infection. Amount of postoperative swelling appreciated) Head: Atraumatic, Normocephalic Neck: Normal Inspection, Supple, Non-Tender, Full Range of Motion. No: Lymphadenopathy (L), Lymphadenopathy (R) Respiratory/Chest: No Respiratory Distress, Lungs Clear, Normal Breath Sounds, No Accessory Muscle Use Cardiovascular: Normal Peripheral Pulses, Regular Rate, Rhythm, No Edema, No Gallop, No Murmur, No Rub Back Exam: Decreased Range of Motion, Paraspinal Tenderness (Bar spine bilaterally) Extremities: Normal Inspection, Normal Range of Motion, No Pedal Edema Neurological: Alert, Oriented, CN II-XII Intact, Normal Cognition Psychiatric: Normal Affect, Normal Mood Skin Exam: Warm, Dry, Intact, Erythema (Tickly upper extremities from shoulders to elbows bilaterally. Nape of neck some anterior chest erythema.), Other ( Notable hives scattered over the upper extremities the lower extremities upper back and neck.) Course - Vital Signs Last Recorded V/S: Last Vital Signs Temp 36.6 C 08/21/19 13:16 Pulse 81 08/21/19 13:16 Resp 16 08/21/19 13:16 BP 118/82 08/21/19 13:16 Pulse Ox 99 08/21/19 13:16 - Radiology Interpretation Free Text/Narrative:: 53-year-old female presents to the ED with a generalized new onset drug eruption involving particularly upper extremities nape of neck and some on her lower extremities as well. There is a combination of erythema and urticaria. This is secondary to a drug eruption. She was recently started on amoxicillin 500 mg 3 times daily by dentist after having multiple dental extractions performed 3 days ago. Patient advised no further use of penicillin. Antibiotic changed to clindamycin 300 mg 3 times daily for the next 5 days. Continue Percocet tabs 5/325 mg 1 or 2 every 4-6 hours necessary for pain relief. Departure - Departure Time of Disposition: 13:34 Disposition: Home, Self-Care 01 Condition: Fair Clinical Impression: Allergic reaction caused by a drug Qualifiers: Encounter type: initial encounter Qualified Code(s): T78.40XA - Allergy, unspecified, initial encounter - Discharge Information *PRESCRIPTION DRUG MONITORING PROGRAM REVIEWED*: Not Applicable *COPY OF PRESCRIPTION DRUG MONITORING REPORT IN PATIENT LEONEL: Not Applicable Prescriptions: Clindamycin HCl 300 mg PO TID #15 capsule oxyCODONE HCl/Acetaminophen [Percocet 5-325 mg Tablet] 1 - 2 each PO Q4H PRN # 15 tablet PRN Reason: pain relief. Instructions: Drug Rash Referrals: Consuelo Julian PUNCH MACHINE OPERATOR [Primary Care Provider] - Forms: ED Department Discharge Additional Instructions: Evaluation in the emergency room today in regards to development ofGeneralized hives with some diffuse erythema particular noted in the upper extremities. The rash is secondary to a drug eruption. It appears that you have developed an allergy to penicillin which was started 3 days ago. Therefore of course you are allergic to penicillin forever. It is to be replaced with antibiotic clindamycin 300 mg 3 times daily for the next 5 days to prevent infection from occurring.continue pain medication Percocet tabs 5/325mg as prescribed. Of note rash will probably take 3 to 5 days to go away completely. Sepsis Event Note - Evaluation Sepsis Screening Result: No Definite Risk - Focused Exam Vital Signs: Vital Signs Temp Pulse Resp BP Pulse Ox 08/21/19 13:16 36.6 C 81 16 118/82 99 Date Exam was Performed: 08/21/19 Time Exam was Performed: 13:42
== END 2019-08-21 13:50 | disposition home or self-care (01) ==
LOC: JD.ED 13:04
DX: L50.0 Allergic urticaria (principal); T36.0X5A Adverse effect of penicillins, initial encounter; K21.9 Gastro-esophageal reflux disease without esophagitis; F41.9 Anxiety disorder, unspecified; F32.9 Major depressive disorder, single episode, unspecified; E03.9 Hypothyroidism, unspecified; E66.9 Obesity, unspecified; Z68.31 Body mass index [BMI] 31.0-31.9, adult; F17.210 Nicotine dependence, cigarettes, uncomplicated; Z88.8 Allergy status to other drugs, medicaments and biological substances; Z88.2 Allergy status to sulfonamides; Z88.5 Allergy status to narcotic agent; Z88.6 Allergy status to analgesic agent; Z79.899 Other long term (current) drug therapy
CPT/HCPCS: 99282; 99283

== ENCOUNTER 2020-04-29 10:12 | Emergency (ER) | payer MEDICAID ==
[2020-04-29] MEDS ORDERED: Sodium Chloride 0.9% 10 ML Syringe FLUSH PRN (10:23)
--- NOTE | 2020-04-29 10:43 | EDM.PDOC ---
ED HPI GENERAL MEDICAL PROBLEM - General Chief Complaint: Neuro Symptoms/Deficits Stated Complaint: [facility] Time Seen by Provider: 04/29/20 10:16 Source of Information: Reports: Patient, EMS History Limitations: Reports: Intoxication - History of Present Illness INITIAL COMMENTS - FREE TEXT/NARRATIVE: The patient presents by [facility] for a stroke. She said she woke up at 7am after having a dream she had a stroke. She said she had some left sided weakness. That has resolved when she arrived here. She does admit to drinking and she has been here before for this. She has no headache, fever, chills, chest pain or shortness of breath. 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 - Related Data Allergies Allergy/AdvReac Type Severity Reaction Status Date / Time ibuprofen Allergy Severe Rash Verified 04/29/20 10:20 ketorolac [From Toradol] Allergy Severe Rash Verified 04/29/20 10:20 Sulfa (Sulfonamide Allergy Severe Rash Verified 04/29/20 10:20 Antibiotics) sumatriptan [From Imitrex] Allergy Severe Anaphylactic Verified 04/29/20 10:20 Shock tramadol Allergy Severe Rash Verified 04/29/20 10:20 diphenhydramine AdvReac Severe Anxiety Verified 04/29/20 10:20 [From Benadryl] Home Meds: Home Meds Omeprazole Magnesium [Prilosec Otc] 20 mg PO DAILY 12/01/17 [History] Levothyroxine [Synthroid] 50 mcg PO ACBREAKFAST tablet 12/21/17 [Rx] LORazepam [Ativan] 1 mg PO TID PRN #12 tab 07/11/19 [Rx] Ondansetron [Zofran ODT] 4 mg PO Q6H PRN #20 tab.dis 08/09/19 [Rx] LORazepam [Ativan] 1 mg PO ASDIRECTED #28 tab 08/10/19 [Rx] Venlafaxine [Effexor XR] 150 mg PO DAILY 08/12/19 [History] Clindamycin HCl 300 mg PO TID #15 capsule 08/21/19 [Rx] oxyCODONE HCl/Acetaminophen [Percocet 5-325 mg Tablet] 1 - 2 each PO Q4H PRN #15 tablet 08/21/19 [Rx] Past Medical History HEENT History: Reports: Allergic Rhinitis, Impaired Vision Other HEENT History: wears corrective lenses, dental infection Cardiovascular History: Reports: High Cholesterol Respiratory History: Reports: Sleep Apnea, Other (See Below) Other Respiratory History: left lung nodule, restrictive lung disease, cough, shortness of breath, pleural thickening, pleuritic chest pain Gastrointestinal History: Reports: Gastritis, GERD, Other (See Below) Other Gastrointestinal History: esophageal stricture, abdominal pain lower, elevated liver enzymes Genitourinary History: Reports: Urinary Incontinence, UTI, Recurrent, Other (See Below) Other Genitourinary History: implantable device interstim RLQ- removed 08/16/17; interstim neurotransmitter placed jan 2018-left buttocks. 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: Musculoskeletal History: Reports: Back Pain, Chronic, Neck Pain, Chronic, Osteoarthritis Other Musculoskeletal History: neck surgery Neurological History: Reports: Migraines, Seizure, Other (See Below) Other Neuro History: patient reports "nervous tics", nerve pain, dizziness Psychiatric History: Reports: Addiction, Anxiety, Depression, Suicide Attempt, Other (See Below) Other Psychiatric History: drug overdose, personality disorder, alcohol withdrawal Endocrine/Metabolic History: Reports: Hypothyroidism, Obesity/BMI 30+ Other Endocrine/Metabolic History: reports hypothyroidism 15 years ago that corrected itself Hematologic History: Reports: None Immunologic History: Reports: None Oncologic (Cancer) History: Reports: None Dermatologic History: Reports: Other (See Below) Other Dermatologic History: skin lesion - Infectious Disease History Infectious Disease History: Reports: Chicken Pox - Past Surgical History Respiratory Surgical History: Reports: Lung Biopsies Other Respiratory Surgeries/Procedures: 2014 GI Surgical History: Reports: Appendectomy, Cholecystectomy, Colonoscopy, EGD Female Surgical History: Reports: Hysterectomy, Salpingo-Oophorectomy, Tubal Ligation, Other (See Below) Other Female Surgeries/Procedures: bladder sling 09/2017 Neurological Surgical History: Reports: C-Spine, Other (See Below) Other Neurological Surgeries/Procedures: Disc removed from her neck, titanium plate inserted in 2019. Musculoskeletal Surgical History: Reports: None Social & Family History - Family History Family Medical History: No Pertinent Family History Cardiac: Reports: Bypass, CAD, Heart Failure - Tobacco Use Tobacco Use Status *Q: Former Tobacco User Used Tobacco, but Quit: Yes Month/Year Tobacco Last Used: 03/2020 - Caffeine Use Caffeine Use: Reports: Tea - Recreational Drug Use Recreational Drug Use: No - Living Situation & Occupation Living situation: Reports: , Other (with roomate) Occupation: Unemployed ED ROS GENERAL - Review of Systems Review Of Systems: See Below Constitutional: Reports: No Symptoms HEENT: Reports: No Symptoms Respiratory: Reports: No Symptoms Cardiovascular: Reports: No Symptoms Endocrine: Reports: No Symptoms GI/Abdominal: Reports: No Symptoms : Reports: No Symptoms Musculoskeletal: Reports: No Symptoms Skin: Reports: No Symptoms Neurological: Reports: Weakness ED EXAM, NEURO - Physical Exam Exam: See Below Exam Limited By: No Limitations General Appearance: Alert, No Apparent Distress Ears: Normal External Exam Nose: Normal Inspection Head Exam: Atraumatic, Normocephalic Neck: Normal Inspection Respiratory/Chest: No Respiratory Distress, Lungs Clear, Normal Breath Sounds Cardiovascular: Regular Rate, Rhythm, No Edema, No Murmur GI/Abdominal: Soft, Non-Tender, No Organomegaly, No Mass Neurological: Alert, No Motor/Sensory Deficits, Oriented x 3 Course - Vital Signs Last Recorded V/S: Last Vital Signs Temp 97.5 F 04/29/20 10:18 Pulse 71 04/29/20 10:18 Resp 16 04/29/20 10:18 BP 144/99 H 04/29/20 10:18 Pulse Ox 98 04/29/20 10:18 - Orders/Labs/Meds Orders: Active Orders 24 hr Category Date Time Status Cardiac Monitoring [RC] . DIRECTED Care 04/29/20 10:23 Active Peripheral IV Care [RC] . DIRECTED Care 04/29/20 10:23 Active CBC WITH AUTO DIFF [HEME] Stat Lab 04/29/20 10:55 Received COMPREHENSIVE METABOLIC PN,CMP [CHEM] Stat Lab 04/29/20 10:55 Received ETHANOL BLOOD MEDICAL [CHEM] Stat Lab 04/29/20 10:55 Received INR,PT,PROTHROMBIN TIME [COAG] Stat Lab 04/29/20 10:55 Received MAGNESIUM [CHEM] Stat Lab 04/29/20 10:55 Received PTT,PARTIAL THROMBOPLSTIN TIME [COAG] Stat Lab 04/29/20 10:55 Received TROPONIN I [CHEM] Stat Lab 04/29/20 10:55 Received Sodium Chloride 0.9% [Saline Flush] Med 04/29/20 10:23 Active 10 ml FLUSH ASDIRECTED PRN Peripheral IV Insertion Adult [OM.PC] Stat Oth 04/29/20 10:23 Ordered Medication Orders Sodium Chloride (Saline Flush) 10 ml FLUSH ASDIRECTED PRN PRN Reason: Keep Vein Open Meds: Medications Generic Name Dose Route Start Last Admin Trade Name Freq PRN Reason Stop Dose Admin Sodium Chloride 10 ml 04/29/20 10:23 Saline Flush FLUSH ASDIRECTED PRN Keep Vein Open - Re-Assessments/Exams Free Text/Narrative Re-Assessment/Exam: 04/29/20 10:41 The patient presents by [facility] for a possible stroke. Her last time known well was 7am. She said she could not move the left side of her body. That is better now. She said she woke up this morning and had a dream she was having a stroke. She does appear to be intoxicated. She has been here a few times for the same and it was the alcohol that was the problem. I did do a CT of her head and it shows nothing acute. I will get some labs. 04/29/20 11:05 She would like to leave. I will discharge her home. Departure - Departure Time of Disposition: 11:10 Disposition: Home, Self-Care 01 Condition: Good Clinical Impression: Alcohol abuse Alcohol intoxication Qualifiers: Complication of substance-induced condition: uncomplicated Qualified Code(s): F10.920 - Alcohol use, unspecified with intoxication, uncomplicated - Discharge Information *PRESCRIPTION DRUG MONITORING PROGRAM REVIEWED*: Not Applicable *COPY OF PRESCRIPTION DRUG MONITORING REPORT IN PATIENT LEONEL: Not Applicable Forms: ED Department Discharge Additional Instructions: Try to stop drinking. If you need help, call [facility] [employer] service harrod at . Follow up with Consuelo Julian. Please return if you are worse. Sepsis Event Note (ED) - Evaluation Sepsis Screening Result: No Definite Risk - Focused Exam Vital Signs: Vital Signs Temp Pulse Resp BP Pulse Ox 04/29/20 10:18 97.5 F 71 16 144/99 H 98 - My Orders Last 24 Hours: My Active Orders 04/29/20 10:23 Cardiac Monitoring [RC] . DIRECTED Peripheral IV Care [RC] . DIRECTED Sodium Chloride 0.9% [Saline Flush] 10 ml FLUSH ASDIRECTED PRN Peripheral IV Insertion Adult [OM.PC] Stat 04/29/20 10:55 CBC WITH AUTO DIFF [HEME] Stat COMPREHENSIVE METABOLIC PN,CMP [CHEM] Stat ETHANOL BLOOD MEDICAL [CHEM] Stat INR,PT,PROTHROMBIN TIME [COAG] Stat MAGNESIUM [CHEM] Stat PTT,PARTIAL THROMBOPLSTIN TIME [COAG] Stat TROPONIN I [CHEM] Stat - Assessment/Plan Last 24 Hours: My Active Orders 04/29/20 10:23 Cardiac Monitoring [RC] . DIRECTED Peripheral IV Care [RC] . DIRECTED Sodium Chloride 0.9% [Saline Flush] 10 ml FLUSH ASDIRECTED PRN Peripheral IV Insertion Adult [OM.PC] Stat 04/29/20 10:55 CBC WITH AUTO DIFF [HEME] Stat COMPREHENSIVE METABOLIC PN,CMP [CHEM] Stat ETHANOL BLOOD MEDICAL [CHEM] Stat INR,PT,PROTHROMBIN TIME [COAG] Stat MAGNESIUM [CHEM] Stat PTT,PARTIAL THROMBOPLSTIN TIME [COAG] Stat TROPONIN I [CHEM] Stat
--- NOTE | 2020-04-29 10:45 | CT ---
Head CT Technique: Multiple axial sections through the brain were obtained. Intravenous contrast was not utilized. Comparison: Prior head CT exam of 06/14/19. Findings: Ventricles along with basal cisterns and sulci over the convexities are mildly prominent. No abnormal parenchymal densities are seen. No evidence of intracranial hemorrhage. No midline shift or mass-effect is appreciated. Bone window settings were reviewed. Visualized paranasal sinuses and mastoid sinuses are clear. No acute calvarial finding is appreciated. Impression: 1. Mild generalized atrophy. 2. Nothing acute is appreciated on noncontrast head CT exam. Note: Consider MRI if patient's symptoms are persistent. Diagnostic code #2
[2020-04-29 11:04] VITALS: BP 134/89; PULSE 84
== END 2020-04-29 11:15 | disposition home or self-care (01) ==
LOC: JD.ED 10:12
DX: F10.120 Alcohol abuse with intoxication, uncomplicated (principal); K21.9 Gastro-esophageal reflux disease without esophagitis; E03.9 Hypothyroidism, unspecified; E66.9 Obesity, unspecified; Z68.30 Body mass index [BMI] 30.0-30.9, adult; Z88.6 Allergy status to analgesic agent; Z88.2 Allergy status to sulfonamides; Z88.5 Allergy status to narcotic agent; Z88.8 Allergy status to other drugs, medicaments and biological substances; Z79.899 Other long term (current) drug therapy; Z87.891 Personal history of nicotine dependence; Y90.5 Blood alcohol level of 100-119 mg/100 ml
CPT/HCPCS: 36415; 70450; 70450-26; 80053; 80179; 82962; 83735; 84484; 85025; 85610; 85730; 99283; 99285-25

== ENCOUNTER 2020-05-04 14:50 | Emergency (ER) | payer MEDICAID ==
[2020-05-04 14:59] VITALS: BP 126/87; PULSE 103
[2020-05-04] MEDS ORDERED: Ondansetron 4 MG Tab.DIS PO ONE (15:07)
[2020-05-04] MEDS ORDERED: Acetaminophen/Butalbital/Caffeine 325-50-40 MG Tab PO ONE (15:07)
--- NOTE | 2020-05-04 15:11 | EDM.PDOC ---
ED HPI GENERAL MEDICAL PROBLEM - General Chief Complaint: Headache Stated Complaint: MIGRAINE Time Seen by Provider: 05/04/20 14:57 Source of Information: Reports: Patient, Old Records, RN Notes Reviewed History Limitations: Reports: No Limitations - History of Present Illness INITIAL COMMENTS - FREE TEXT/NARRATIVE: Patient is a 54-year-old female who presents to the ED for her migraine. Patient is well-known to this ER for multiple reasons. She does note that she just got out of [facility] in [place] for alcohol detox. She notes that she had a headache when she left asked for some medication, give her a shot of Toradol, patient notes she has an allergy for which she receives a rash when she takes Toradol. She notes that the headache has worsened since then. She notes she went home and been laying in a dark room, taken some Tylenol, try ice packs also showers to help get the headache to relent however nothing is been helping much. Patient also has a allergy to Benadryl, and sumatriptan. She is complaining of some nausea, and has been able to keep sips of water down but has not been eating or drinking much else. She states that nothing is really made the headache better, and rates this a 10 out of 10 on today's pain scale. She had no fevers or chills, cough or shortness of breath, or any other sick-like symptoms. Headache Pain Score (Numeric/FACES): 10 - Related Data Allergies Allergy/AdvReac Type Severity Reaction Status Date / Time ibuprofen Allergy Severe Rash Verified 05/04/20 14:59 ketorolac [From Toradol] Allergy Severe Rash Verified 05/04/20 14:59 Sulfa (Sulfonamide Allergy Severe Rash Verified 05/04/20 14:59 Antibiotics) sumatriptan [From Imitrex] Allergy Severe Anaphylactic Verified 05/04/20 14:59 Shock tramadol Allergy Severe Rash Verified 05/04/20 14:59 Penicillins Allergy Rash Verified 05/04/20 14:59 diphenhydramine AdvReac Severe Anxiety Verified 05/04/20 14:59 [From Benadryl] Home Meds: Home Meds Omeprazole Magnesium [Prilosec Otc] 20 mg PO DAILY 12/01/17 [History] Levothyroxine [Synthroid] 50 mcg PO ACBREAKFAST tablet 12/21/17 [Rx] LORazepam [Ativan] 1 mg PO TID PRN #12 tab 07/11/19 [Rx] Ondansetron [Zofran ODT] 4 mg PO Q6H PRN #20 tab.dis 08/09/19 [Rx] LORazepam [Ativan] 1 mg PO ASDIRECTED #28 tab 08/10/19 [Rx] Venlafaxine [Effexor XR] 150 mg PO DAILY 08/12/19 [History] Clindamycin HCl 300 mg PO TID #15 capsule 08/21/19 [Rx] oxyCODONE HCl/Acetaminophen [Percocet 5-325 mg Tablet] 1 - 2 each PO Q4H PRN #15 tablet 08/21/19 [Rx] Past Medical History HEENT History: Reports: Allergic Rhinitis, Impaired Vision Other HEENT History: wears corrective lenses, dental infection Cardiovascular History: Reports: High Cholesterol Respiratory History: Reports: Sleep Apnea, Other (See Below) Other Respiratory History: left lung nodule, restrictive lung disease, cough, shortness of breath, pleural thickening, pleuritic chest pain Gastrointestinal History: Reports: Gastritis, GERD, Other (See Below) Other Gastrointestinal History: esophageal stricture, abdominal pain lower, elevated liver enzymes Genitourinary History: Reports: Urinary Incontinence, UTI, Recurrent, Other (See Below) Other Genitourinary History: implantable device interstim RLQ- removed 08/16/17; interstim neurotransmitter placed jan 2018-left buttocks. 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: Musculoskeletal History: Reports: Back Pain, Chronic, Neck Pain, Chronic, Osteoarthritis Other Musculoskeletal History: neck surgery Neurological History: Reports: Migraines, Seizure, Other (See Below) Other Neuro History: patient reports "nervous tics", nerve pain, dizziness Psychiatric History: Reports: Addiction, Anxiety, Depression, Suicide Attempt, Other (See Below) Other Psychiatric History: drug overdose, personality disorder, alcohol withdrawal Endocrine/Metabolic History: Reports: Hypothyroidism, Obesity/BMI 30+ Other Endocrine/Metabolic History: reports hypothyroidism 15 years ago that corrected itself Hematologic History: Reports: None Immunologic History: Reports: None Oncologic (Cancer) History: Reports: None Dermatologic History: Reports: Other (See Below) Other Dermatologic History: skin lesion - Infectious Disease History Infectious Disease History: Reports: Chicken Pox - Past Surgical History HEENT Surgical History: Reports: None Cardiovascular Surgical History: Reports: None Respiratory Surgical History: Reports: Lung Biopsies Other Respiratory Surgeries/Procedures: 2014 GI Surgical History: Reports: Appendectomy, Cholecystectomy, Colonoscopy, EGD Female Surgical History: Reports: Hysterectomy, Salpingo-Oophorectomy, Tubal Ligation, Other (See Below) Other Female Surgeries/Procedures: bladder sling 09/2017 Endocrine Surgical History: Reports: None Neurological Surgical History: Reports: C-Spine, Other (See Below) Other Neurological Surgeries/Procedures: Disc removed from her neck, titanium plate inserted in 2019. Musculoskeletal Surgical History: Reports: None Oncologic Surgical History: Reports: None Social & Family History - Family History Family Medical History: No Pertinent Family History Cardiac: Reports: Bypass, CAD, Heart Failure - Tobacco Use Tobacco Use Status *Q: Never Tobacco User Second Hand Smoke Exposure: No - Caffeine Use Caffeine Use: Reports: Tea - Recreational Drug Use Recreational Drug Use: No - Living Situation & Occupation Living situation: Reports: , Other (with roomate) Occupation: Unemployed ED ROS GENERAL - Review of Systems Review Of Systems: Comprehensive ROS is negative, except as noted in HPI. - Physical Exam Exam: See Below Exam Limited By: No Limitations General Appearance: Alert, WD/WN, No Apparent Distress Eye Exam: Bilateral Eye: EOMI, Normal Inspection, PERRL Respiratory/Chest: No Respiratory Distress, Lungs Clear, Normal Breath Sounds, No Accessory Muscle Use, Chest Non-Tender Cardiovascular: Normal Peripheral Pulses, Regular Rate, Rhythm, No Edema Neuro Exam (Abbreviated): Alert, Oriented, Normal Cognition, No Motor/Sensory Deficits Extremities: Normal Inspection, Normal Capillary Refill Psychiatric: Normal Affect, Normal Mood Skin Exam: Warm, Dry, Intact, Normal Color, No Rash Course - Vital Signs Last Recorded V/S: Last Vital Signs Temp 98.5 F 05/04/20 14:56 Pulse 103 H 05/04/20 14:56 Resp 16 05/04/20 14:56 BP 126/87 05/04/20 14:56 Pulse Ox 98 05/04/20 14:56 - Orders/Labs/Meds Orders: Active Orders 24 hr Category Date Time Status HYDROmorphone [Dilaudid] Med 05/04/20 17:59 Once 0.5 mg IM ONETIME ONE Meds: Medications Discontinued Medications Generic Name Dose Route Start Last Admin Trade Name Freq PRN Reason Stop Dose Admin Acetaminophen/Butalbital/Caffeine 1 tab 05/04/20 15:07 05/04/20 15:19 Fioricet 325-50-40 Mg PO 05/04/20 15:08 1 tab ONETIME ONE Administration Haloperidol Lactate 5 mg 05/04/20 17:19 05/04/20 17:35 Haldol IM 05/04/20 17:20 5 mg ONETIME ONE Administration Ondansetron HCl 4 mg 05/04/20 15:07 05/04/20 15:19 Zofran Odt PO 05/04/20 15:08 4 mg ONETIME ONE Administration Prochlorperazine Edisylate 10 mg 05/04/20 15:59 05/04/20 16:21 Compazine IM 05/04/20 16:00 10 mg ONETIME ONE Administration - Re-Assessments/Exams Free Text/Narrative Re-Assessment/Exam: 05/04/20 15:11 Patient presents to the ED for the evaluation of her headache. For today's purposes we will give her a dose of oral Zofran, and then give her tablet of Fioricet about 20 minutes after the Zofran has been given. Patient did request a "pain shot" right away. I told her I was not willing to do that without trying a different avenue first. 05/04/20 17:44 Patient was also given 10 mg Compazine, and 5 mg Haldol, for ongoing management; we will have to reassess as the Haldol is only been given about 10 minutes ago. Plan to reassess around 1800 and hopefully discharge her home after this. 05/04/20 17:59 Patient still complaining of a pinching headache on the right side of her forehead. We will go ahead and give her one 0.5 mg dose of Dilaudid IM and get her discharged home. Departure - Departure Time of Disposition: 18:00 Disposition: Home, Self-Care 01 Condition: Good Clinical Impression: Migraine - Discharge Information *PRESCRIPTION DRUG MONITORING PROGRAM REVIEWED*: No *COPY OF PRESCRIPTION DRUG MONITORING REPORT IN PATIENT LEONEL: No Instructions: Migraine Headache, [id number] Referrals: Consuelo Julian, LEAD VULCANIZING OPERATOR [Primary Care Provider] - Forms: ED Department Discharge Additional Instructions: You were evaluated in the ED for your headache. You were given a combination of medications for management. This did seem to provide you pretty good relief of your symptoms. Recommend that you go home and rest in a quiet, darkened room. Try also to keep well hydrated. Please return to the ED if your symptoms should change or worsen. Sepsis Event Note (ED) - Evaluation Sepsis Screening Result: No Definite Risk - Focused Exam Vital Signs: Vital Signs Temp Pulse Resp BP Pulse Ox 05/04/20 14:56 98.5 F 103 H 16 126/87 98 - My Orders Last 24 Hours: My Active Orders 05/04/20 17:59 HYDROmorphone [Dilaudid] 0.5 mg IM ONETIME ONE - Assessment/Plan Last 24 Hours: My Active Orders 05/04/20 17:59 HYDROmorphone [Dilaudid] 0.5 mg IM ONETIME ONE
[2020-05-04] MEDS ORDERED: Prochlorperazine 10 MG/2 ML SDV IM ONE (15:59)
[2020-05-04] MEDS ORDERED: Haloperidol Lactate 5 MG/ML SDV IM ONE (17:19)
[2020-05-04] MEDS ORDERED: HYDROmorphone 0.5 MG/0.5 ML Syringe IM ONE (17:59)
== END 2020-05-04 18:06 | disposition home or self-care (01) ==
LOC: JD.ED 14:50
DX: G43.909 Migraine, unspecified, not intractable, without status migrainosus (principal); K21.9 Gastro-esophageal reflux disease without esophagitis; E03.9 Hypothyroidism, unspecified; E66.9 Obesity, unspecified; Z88.6 Allergy status to analgesic agent; Z88.5 Allergy status to narcotic agent; Z88.2 Allergy status to sulfonamides; Z88.8 Allergy status to other drugs, medicaments and biological substances; Z88.0 Allergy status to penicillin; Z79.899 Other long term (current) drug therapy; Z68.33 Body mass index [BMI] 33.0-33.9, adult
CPT/HCPCS: 96372; 99283; A9270; J0780; J1630

== ENCOUNTER 2020-08-15 09:06 | Emergency (ER) | payer MEDICAID ==
[2020-08-15 09:23] VITALS: BP 128/82; PULSE 91
--- NOTE | 2020-08-15 09:37 | EDM.PDOC ---
ED HPI GENERAL MEDICAL PROBLEM - General Chief Complaint: Lower Extremity Injury/Pain Stated Complaint: LT HIP PAIN Time Seen by Provider: 08/15/20 09:36 Source of Information: Reports: Patient, RN Notes Reviewed - History of Present Illness INITIAL COMMENTS - FREE TEXT/NARRATIVE: 54 yr old female presents with L hip pain that started about 3 wks ago. No known injury. Getting "worse". Has been taking tylenol without relief. No prior hx of hip problems. Pain is lateral hip, worse with motion. does not radiate to her groin or down her leg. Left Hip Pain Score (Numeric/FACES): 9 - Related Data Allergies Allergy/AdvReac Type Severity Reaction Status Date / Time sumatriptan [From Imitrex] Allergy Severe Anaphylactic Verified 08/15/20 09:23 Shock ibuprofen Allergy Intermediate Rash Verified 08/16/20 11:55 ketorolac [From Toradol] Allergy Intermediate Rash Verified 08/16/20 11:55 Penicillins Allergy Intermediate Rash Verified 08/16/20 11:55 Sulfa (Sulfonamide Allergy Intermediate Rash Verified 08/16/20 11:55 Antibiotics) tramadol Allergy Intermediate Rash Verified 08/16/20 11:55 diphenhydramine AdvReac Mild Anxiety Verified 08/16/20 11:55 [From Benadryl] Home Meds: Home Meds Omeprazole Magnesium [Prilosec Otc] 20 mg PO DAILY 12/01/17 [History] Levothyroxine [Synthroid] 50 mcg PO ACBREAKFAST tablet 12/21/17 [Rx] Ondansetron [Zofran ODT] 4 mg PO Q6H PRN #20 tab.dis 08/09/19 [Rx] Venlafaxine [Effexor XR] 150 mg PO DAILY 08/12/19 [History] Acetaminophen/HYDROcodone [[place] 325-5 MG] 1 tab PO Q6H PRN #10 tablet 08/15/20 [Rx] QUEtiapine [SEROquel] 25 mg PO BEDTIME 08/15/20 [History] predniSONE [Prednisone] 50 mg PO DAILY #6 tablet 08/15/20 [Rx] Past Medical History HEENT History: Reports: Allergic Rhinitis, Impaired Vision Other HEENT History: wears corrective lenses, dental infection Cardiovascular History: Reports: High Cholesterol Respiratory History: Reports: Sleep Apnea, Other (See Below) Other Respiratory History: left lung nodule, restrictive lung disease, cough, shortness of breath, pleural thickening, pleuritic chest pain Gastrointestinal History: Reports: Gastritis, GERD, Other (See Below) Other Gastrointestinal History: esophageal stricture, abdominal pain lower, elevated liver enzymes Genitourinary History: Reports: Urinary Incontinence, UTI, Recurrent, Other (See Below) Other Genitourinary History: implantable device interstim RLQ- removed 08/16/17; interstim neurotransmitter placed jan 2018-left buttocks. [employer]OR History: Reports: Musculoskeletal History: Reports: Back Pain, Chronic, Neck Pain, Chronic, Osteoarthritis Other Musculoskeletal History: neck surgery Neurological History: Reports: Migraines, Seizure, Other (See Below) Other Neuro History: patient reports "nervous tics", nerve pain, dizziness Psychiatric History: Reports: Addiction, Anxiety, Depression, Suicide Attempt, Other (See Below) Other Psychiatric History: drug overdose, personality disorder, alcohol withdrawal Endocrine/Metabolic History: Reports: Hypothyroidism, Obesity/BMI 30+ Other Endocrine/Metabolic History: reports hypothyroidism 15 years ago that corrected itself Hematologic History: Reports: None Immunologic History: Reports: None Oncologic (Cancer) History: Reports: None Dermatologic History: Reports: Other (See Below) Other Dermatologic History: skin lesion - Infectious Disease History Infectious Disease History: Reports: Chicken Pox - Past Surgical History Respiratory Surgical History: Reports: Lung Biopsies Other Respiratory Surgeries/Procedures: 2014 GI Surgical History: Reports: Appendectomy, Cholecystectomy, Colonoscopy, EGD Female Surgical History: Reports: Hysterectomy, Salpingo-Oophorectomy, Tubal Ligation, Other (See Below) Other Female Surgeries/Procedures: bladder sling 09/2017 Neurological Surgical History: Reports: C-Spine, Other (See Below) Other Neurological Surgeries/Procedures: Disc removed from her neck, titanium plate inserted in 2019. Social & Family History - Family History Family Medical History: No Pertinent Family History Cardiac: Reports: Bypass, CAD, Heart Failure - Tobacco Use Tobacco Use Status *Q: Never Tobacco User - Caffeine Use Caffeine Use: Reports: Coffee, Tea - Recreational Drug Use Recreational Drug Use: No - Living Situation & Occupation Living situation: Reports: , Other (with roomate) Occupation: Unemployed Review of Systems - Review of Systems Review Of Systems: See Below Constitutional: Denies: Chills, Fever Eyes: Reports: No Symptoms Mouth/Throat: Reports: No Symptoms Respiratory: Denies: Shortness of Breath Cardiovascular: Denies: Chest Pain GI/Abdominal: Reports: No Symptoms Genitourinary: Reports: No Symptoms Musculoskeletal: Reports: Joint Pain Skin: Reports: No Symptoms Neurological: Reports: No Symptoms ED EXAM, GENERAL - Physical Exam Exam: See Below General Appearance: Alert, Mild Distress Eye Exam: Bilateral Eye: PERRL Head: Atraumatic Neck: Supple Respiratory/Chest: No Respiratory Distress, Lungs Clear Cardiovascular: Regular Rate, Rhythm Back Exam: No: CVA Tenderness (L), CVA Tenderness (R), Vertebral Tenderness Extremities: Other (Tender L lateral hip, no bruising, swelling, warmth or erythema, joints otherwise not swollen or tender) Neurological: Alert, Oriented, No Motor/Sensory Deficits Skin Exam: Warm, Dry, Normal Color Course - Vital Signs Last Recorded V/S: Last Vital Signs Temp 96.3 F L 08/15/20 09:20 Pulse 91 08/15/20 09:20 Resp 18 08/15/20 09:20 BP 128/82 08/15/20 09:20 Pulse Ox 96 08/15/20 09:20 - Orders/Labs/Meds Meds: Medications Discontinued Medications Generic Name Dose Route Start Last Admin Trade Name Freq PRN Reason Stop Dose Admin Hydrocodone Bitart/Acetaminophen 1 tab 08/15/20 09:45 08/15/20 10:06 Acetaminophen/Hydrocodone 325-5 Mg Tab PO 08/15/20 09:46 1 tab ONETIME ONE Administration - Re-Assessments/Exams Free Text/Narrative Re-Assessment/Exam: 08/17/20 18:16 Xrays normal looking joint. Departure - Departure Time of Disposition: 10:56 Disposition: Home, Self-Care 01 Condition: Fair Clinical Impression: Bursitis Qualifiers: Bursitis location: hip Hip bursitis location: trochanteric bursitis Laterality: left Qualified Code(s): M70.62 - Trochanteric bursitis, left hip - Discharge Information Prescriptions: Acetaminophen/HYDROcodone [[place] 325-5 MG] 1 tab PO Q6H PRN #10 tablet PRN Reason: Pain predniSONE [Prednisone] 50 mg PO DAILY #6 tablet Instructions: Hip Bursitis Referrals: Consuelo Julian B[facility] SCALER [Primary Care Provider] - Forms: ED Department Discharge Additional Instructions: Alternate ice and heat as needed. Prednisone 50 mg daily for 6 days. Prescription for prednisone has been sent to [facility]. Tylenol for mild to moderate pain or hydrocodone if needed for severe pain. Do not drive or work when taking hydrocodone. See your regular provider if not much better within 5 to 7 days as expected. Sepsis Event Note (ED) - Evaluation Sepsis Screening Result: No Definite Risk
[2020-08-15] MEDS ORDERED: Acetaminophen/HYDROcodone 325-5 MG Tab PO ONE (09:45)
--- NOTE | 2020-08-15 10:36 | CR ---
Pelvis and left hip: AP view of the pelvis was obtained as well as AP and frog-leg lateral views of the left hip. Comparison: Prior AP pelvis study of 09/04/15. Neurostimulating device seen previously has been removed. Calcification is noted within the right mid lower pelvis and remains stable from prior exam. Phleboliths are present within the pelvis. Small cyst is noted within the superior left acetabulum which is stable. Joint spaces within both hips are fairly well maintained. No acute fracture or dislocation is present. Impression: 1. Findings as noted above. 2. Nothing acute is seen on AP pelvis or on 2 view left hip exam. Diagnostic code #2
== END 2020-08-15 11:17 | disposition home or self-care (01) ==
LOC: JD.ED 09:06
DX: M70.62 Trochanteric bursitis, left hip (principal); E06.9 Thyroiditis, unspecified; K21.9 Gastro-esophageal reflux disease without esophagitis; E66.9 Obesity, unspecified; Z79.899 Other long term (current) drug therapy; Z68.30 Body mass index [BMI] 30.0-30.9, adult; Z88.0 Allergy status to penicillin; Z88.2 Allergy status to sulfonamides; Z88.5 Allergy status to narcotic agent; Z88.6 Allergy status to analgesic agent; Z88.8 Allergy status to other drugs, medicaments and biological substances; Z68.32 Body mass index [BMI] 32.0-32.9, adult
CPT/HCPCS: 73502; 99283; A9270

== ENCOUNTER 2020-12-15 13:00 | Emergency (ER) | payer MEDICAID ==
[2020-12-15 13:25] VITALS: BP 110/74; PULSE 86
--- NOTE | 2020-12-15 14:01 | EDM.PDOC ---
ED HPI GENERAL MEDICAL PROBLEM - General Chief Complaint: Drug or Alcohol Abuse Stated Complaint: ALCOHOL AND DRUG ISSUES Time Seen by Provider: 12/15/20 13:51 - History of Present Illness INITIAL COMMENTS - FREE TEXT/NARRATIVE: 55-year-old female presents the emergency room for alcohol detox. The patient has been drinking heavily for the last 3 months. She has had problems with alcoholism most of her adult life. She is attempted to detox from alcohol multiple times she has had problems with seizures. Her most recent attempt at detox was in a hospital setting where she actually had seizures. She is also has seizures at the [facility] in the past. I discussed this with the counselor from [facility] and the patient and I am concerned about finding a place for her to go to safely withdrawal from alcohol. Abdomen Pain Score (Numeric/FACES): 7 - Related Data Allergies Allergy/AdvReac Type Severity Reaction Status Date / Time sumatriptan [From Imitrex] Allergy Severe Anaphylactic Verified 08/15/20 09:23 Shock ibuprofen Allergy Intermediate Rash Verified 08/16/20 11:55 ketorolac [From Toradol] Allergy Intermediate Rash Verified 08/16/20 11:55 Penicillins Allergy Intermediate Rash Verified 08/16/20 11:55 Sulfa (Sulfonamide Allergy Intermediate Rash Verified 08/16/20 11:55 Antibiotics) tramadol Allergy Intermediate Rash Verified 08/16/20 11:55 diphenhydramine AdvReac Mild Anxiety Verified 08/16/20 11:55 [From Benadryl] Home Meds: Home Meds Omeprazole Magnesium [Prilosec Otc] 20 mg PO DAILY 12/01/17 [History] Levothyroxine [Synthroid] 50 mcg PO ACBREAKFAST tablet 12/21/17 [Rx] Ondansetron [Zofran ODT] 4 mg PO Q6H PRN #20 tab.dis 08/09/19 [Rx] Venlafaxine [Effexor XR] 150 mg PO DAILY 08/12/19 [History] QUEtiapine [SEROquel] 50 mg PO BEDTIME 08/15/20 [History] busPIRone [Buspar] 50 mg PO DAILY 12/15/20 [History] Past Medical History HEENT History: Reports: Allergic Rhinitis, Impaired Vision Other HEENT History: wears corrective lenses, dental infection Cardiovascular History: Reports: High Cholesterol Respiratory History: Reports: Sleep Apnea, Other (See Below) Other Respiratory History: left lung nodule, restrictive lung disease, cough, shortness of breath, pleural thickening, pleuritic chest pain Gastrointestinal History: Reports: Gastritis, GERD, Other (See Below) Other Gastrointestinal History: esophageal stricture, abdominal pain lower, elevated liver enzymes Genitourinary History: Reports: Urinary Incontinence, UTI, Recurrent, Other (See Below) Other Genitourinary History: implantable device interstim RLQ- removed 08/16/17; interstim neurotransmitter placed jan 2018-left buttocks. 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: Musculoskeletal History: Reports: Back Pain, Chronic, Neck Pain, Chronic, Osteoarthritis Other Musculoskeletal History: neck surgery Neurological History: Reports: Migraines, Seizure, Other (See Below) Other Neuro History: patient reports "nervous tics", nerve pain, dizziness Psychiatric History: Reports: Addiction, Anxiety, Depression, Suicide Attempt, Other (See Below) Other Psychiatric History: drug overdose, personality disorder, alcohol withdrawal Endocrine/Metabolic History: Reports: Hypothyroidism, Obesity/BMI 30+ Other Endocrine/Metabolic History: reports hypothyroidism 15 years ago that corrected itself Hematologic History: Reports: None Immunologic History: Reports: None Oncologic (Cancer) History: Reports: None Dermatologic History: Reports: Other (See Below) Other Dermatologic History: skin lesion - Infectious Disease History Infectious Disease History: Reports: Chicken Pox - Past Surgical History HEENT Surgical History: Reports: None Cardiovascular Surgical History: Reports: None Respiratory Surgical History: Reports: Lung Biopsies Other Respiratory Surgeries/Procedures: 2014 GI Surgical History: Reports: Appendectomy, Cholecystectomy, Colonoscopy, EGD Female Surgical History: Reports: Hysterectomy, Salpingo-Oophorectomy, Tubal Ligation, Other (See Below) Other Female Surgeries/Procedures: bladder sling 09/2017 Endocrine Surgical History: Reports: None Neurological Surgical History: Reports: C-Spine, Other (See Below) Other Neurological Surgeries/Procedures: Disc removed from her neck, titanium plate inserted in 2019. Musculoskeletal Surgical History: Reports: None Oncologic Surgical History: Reports: None Social & Family History - Family History Family Medical History: No Pertinent Family History Cardiac: Reports: Bypass, CAD, Heart Failure - Tobacco Use Tobacco Use Status *Q: Current Every Day Tobacco User Years of Tobacco use: 4 Packs/Tins Daily: 0.5 - Caffeine Use Caffeine Use: Reports: Coffee, Soda, Tea - Recreational Drug Use Recreational Drug Type: Reports: Marijuana/Hashish, Methamphetamine - Living Situation & Occupation Living situation: Reports: , Other (with roomate) Occupation: Unemployed ED ROS GENERAL - Review of Systems Review Of Systems: See Below Constitutional: Reports: No Symptoms HEENT: Reports: No Symptoms Respiratory: Reports: No Symptoms Cardiovascular: Reports: No Symptoms GI/Abdominal: Reports: No Symptoms : Reports: No Symptoms Neurological: Reports: No Symptoms Psychiatric: Reports: Anxiety (She is tremulous at this time) Hematologic/Lymphatic: Reports: No Symptoms ED EXAM, GENERAL - Physical Exam Exam: See Below Exam Limited By: No Limitations General Appearance: Mild Distress (She is anxious and tremulous at this time) Eye Exam: Bilateral Eye: Normal Inspection Ears: Normal External Exam, Normal Canal, Hearing Grossly Normal, Normal TMs Nose: Normal Inspection, Normal Mucosa, No Blood Throat/Mouth: Normal Inspection, Normal Lips, Normal Oropharynx, Normal Voice, No Airway Compromise Head: Atraumatic, Normocephalic Neck: Normal Inspection, Supple, Non-Tender, Full Range of Motion. No: Lymphadenopathy (L), Lymphadenopathy (R), Tender Lateral, Tender Midline Respiratory/Chest: No Respiratory Distress, Lungs Clear, Normal Breath Sounds Cardiovascular: Regular Rate, Rhythm, No Edema, No Murmur GI/Abdominal: Normal Bowel Sounds, Soft, Non-Tender Back Exam: Normal Inspection. No: CVA Tenderness (L), CVA Tenderness (R) Extremities: Normal Inspection Neurological: Alert, Oriented Course - Vital Signs Last Recorded V/S: Last Vital Signs Temp 35.3 C L 12/15/20 13:24 Pulse 86 12/15/20 13:24 Resp 20 12/15/20 13:24 BP 110/74 12/15/20 13:24 Pulse Ox 97 12/15/20 13:24 - Orders/Labs/Meds Labs: Laboratory Tests 12/15/20 12/15/20 12/15/20 Range/Units 15:36 15:36 15:36 WBC 7.35 (3.98-10.04) K/mm3 RBC 4.88 (3.98-5.22) M/mm3 Hgb 14.7 (11.2-15.7) gm/dl Hct 46.2 H (34.1-44.9) % MCV 94.7 (79.4-94.8) fl MCH 30.1 (25.6-32.2) pg MCHC 31.8 L (32.2-35.5) g/dl RDW Std Deviation 44.0 (36.4-46.3) fL Plt Count 303 (182-369) K/mm3 MPV 10.5 (9.4-12.3) fl Neut % (Auto) 63.0 (34.0-71.1) % Lymph % (Auto) 27.3 (19.3-51.7) % [place] % (Auto) 6.9 (4.7-12.5) % Eos % (Auto) 2.3 (0.7-5.8) Baso % (Auto) 0.4 (0.1-1.2) % Neut # (Auto) 4.62 (1.56-6.13) K/mm3 Lymph # (Auto) 2.01 (1.18-3.74) K/mm3 [place] # (Auto) 0.51 H (0.24-0.36) K/mm3 Eos # (Auto) 0.17 (0.04-0.36) K/mm3 Baso # (Auto) 0.03 (0.01-0.08) K/mm3 PT 10.3 (9.7-12.0) SECONDS INR 0.93 Sodium 139 (136-145) mEq/L Potassium 3.8 (3.5-5.1) mEq/L Chloride 103 (98-107) mEq/L Carbon Dioxide 26 (21-32) mEq/L Anion Gap 13.8 (5-15) BUN 11 (7-18) mg/dL Creatinine 0.7 (0.55-1.02) mg/dL Est Cr Clr Drug Dosing 84.01 mL/min Estimated GFR (MDRD) > 60 (>60) mL/min BUN/Creatinine Ratio 15.7 (14-18) Glucose 93 (70-99) mg/dL Calcium 8.9 (8.5-10.1) mg/dL Total Bilirubin 0.3 (0.2-1.0) mg/dL GGT 42 (5-55) U/L AST 17 (15-37) U/L ALT 29 (14-59) U/L Alkaline Phosphatase 125 H (46-116) U/L Total Protein 7.3 (6.4-8.2) g/dl Albumin 3.7 (3.4-5.0) g/dl Globulin 3.6 gm/dL Albumin/Globulin Ratio 1.0 (1-2) TSH 3rd Generation 0.682 (0.358-3.74) uIU/mL Ethyl Alcohol 0.01 (0.00) gm% SARS-CoV-2 RNA (JORDY) (NEGATIVE) 12/15/20 Range/Units 17:45 WBC (3.98-10.04) K/mm3 RBC (3.98-5.22) M/mm3 Hgb (11.2-15.7) gm/dl Hct (34.1-44.9) % MCV (79.4-94.8) fl MCH (25.6-32.2) pg MCHC (32.2-35.5) g/dl RDW Std Deviation (36.4-46.3) fL Plt Count (182-369) K/mm3 MPV (9.4-12.3) fl Neut % (Auto) (34.0-71.1) % Lymph % (Auto) (19.3-51.7) % [place] % (Auto) (4.7-12.5) % Eos % (Auto) (0.7-5.8) Baso % (Auto) (0.1-1.2) % Neut # (Auto) (1.56-6.13) K/mm3 Lymph # (Auto) (1.18-3.74) K/mm3 [place] # (Auto) (0.24-0.36) K/mm3 Eos # (Auto) (0.04-0.36) K/mm3 Baso # (Auto) (0.01-0.08) K/mm3 PT (9.7-12.0) SECONDS INR Sodium (136-145) mEq/L Potassium (3.5-5.1) mEq/L Chloride (98-107) mEq/L Carbon Dioxide (21-32) mEq/L Anion Gap (5-15) BUN (7-18) mg/dL Creatinine (0.55-1.02) mg/dL Est Cr Clr Drug Dosing mL/min Estimated GFR (MDRD) (>60) mL/min BUN/Creatinine Ratio (14-18) Glucose (70-99) mg/dL Calcium (8.5-10.1) mg/dL Total Bilirubin (0.2-1.0) mg/dL GGT (5-55) U/L AST (15-37) U/L ALT (14-59) U/L Alkaline Phosphatase (46-116) U/L Total Protein (6.4-8.2) g/dl Albumin (3.4-5.0) g/dl Globulin gm/dL Albumin/Globulin Ratio (1-2) TSH 3rd Generation (0.358-3.74) uIU/mL Ethyl Alcohol (0.00) gm% SARS-CoV-2 RNA (JORDY) Negative (NEGATIVE) Meds: Medications Discontinued Medications Generic Name Dose Route Start Last Admin Trade Name Freq PRN Reason Stop Dose Admin Lorazepam 2 mg 12/15/20 14:49 12/15/20 15:35 Lorazepam 2 Mg/Ml Sdv IVPUSH 12/15/20 14:50 2 mg ONETIME ONE Administration Lorazepam 1 mg 12/15/20 19:02 12/15/20 19:14 Lorazepam 2 Mg/Ml Sdv IVPUSH 12/15/20 19:03 1 mg ONETIME ONE Administration - Re-Assessments/Exams Free Text/Narrative Re-Assessment/Exam: 12/15/20 15:28 I got busy busy with a couple of transfers but have contacted the state transfer center and they are attempting to find us a bed for this patient. I did check in neither hospital in [place] can accept the patient 12/15/20 19:08 Transfer center did find the patient a bed in [place] however the physician there requested we find something closer they then investigated and found us a bed in [facility]. I did discuss situation with , who is kind enough to accept the patient in transfer. We are working on transportation at this point. Departure - Departure Time of Disposition: 19:11 Disposition: DC/Tfer to Acute Hospital 02 Clinical Impression: Alcohol withdrawal Qualifiers: Complication of substance-induced condition: uncomplicated Qualified Code(s): F10.230 - Alcohol dependence with withdrawal, uncomplicated - Discharge Information Referrals: Consuelo Julian SHEET TURNER [Primary Care Provider] - Forms: ED Department Discharge Sepsis Event Note (ED) - Focused Exam Vital Signs: Vital Signs Temp Pulse Resp BP Pulse Ox 12/15/20 13:24 35.3 C L 86 20 110/74 97
[2020-12-15] MEDS ORDERED: LORazepam 2 MG/ML SDV IVPUSH ONE ×2 (14:49→19:02)
== END 2020-12-15 21:05 ==
LOC: JD.ED 13:00
DX: F10.230 Alcohol dependence with withdrawal, uncomplicated (principal); E03.9 Hypothyroidism, unspecified; K21.9 Gastro-esophageal reflux disease without esophagitis; Z72.0 Tobacco use; Z88.2 Allergy status to sulfonamides; Z88.5 Allergy status to narcotic agent; Z88.8 Allergy status to other drugs, medicaments and biological substances; Z79.899 Other long term (current) drug therapy; Z88.6 Allergy status to analgesic agent; Z88.0 Allergy status to penicillin; Z20.822 Contact with and (suspected) exposure to COVID-19
CPT/HCPCS: 36415; 80053; 80307; 82977; 84443; 85025; 85610; 87635; 96374; 96376; 99285; J2060; 99284; U0002

== ENCOUNTER 2020-12-22 18:23 | Emergency (ER) | payer MEDICAID ==
[2020-12-22 18:31] VITALS: BP 117/80; PULSE 73
== END 2020-12-22 19:15 ==
LOC: JD.ED 18:23
DX: Z53.21 Procedure and treatment not carried out due to patient leaving prior to being seen by health care provider (principal)

== ENCOUNTER 2021-01-08 12:43 | Emergency (ER) | payer MEDICAID ==
[2021-01-08 13:12] VITALS: BP 136/87; PULSE 95
[2021-01-08] MEDS ORDERED: Sodium Chloride 0.9% 10 ML Syringe FLUSH PRN (13:20)
[2021-01-08] MEDS ORDERED: LORazepam 2 MG/ML SDV IVPUSH ONE (13:23)
[2021-01-08] MEDS ORDERED: Sodium Chloride 0.9% 1,000 ML IV SCH (13:30)
--- NOTE | 2021-01-08 13:49 | EDM.PDOCBH ---
ED HPI GENERAL MEDICAL PROBLEM - General Chief Complaint: Behavioral/Psych Stated Complaint: GURPREET AMB Time Seen by Provider: 01/08/21 13:19 Source of Information: Reports: Patient, EMS, RN Notes Reviewed, Other ([facility] staff member) - History of Present Illness INITIAL COMMENTS - FREE TEXT/NARRATIVE: 55 yr old female has been brought in by [facility] after ingesting rubbing alcohol at her home. She reportedly didn't have the money to buy alcohol approved for consumption. She has some nausea, has not vomited. No abd pain at time of exam. She has a longstanding hx of alcohol abuse and dependency. Was just transferred to a treatment facility at [place] 3 to 4 wks ago. Generalized Pain Score (Numeric/FACES): 10 - Related Data Allergies Allergy/AdvReac Type Severity Reaction Status Date / Time sumatriptan [From Imitrex] Allergy Severe Anaphylactic Verified 01/08/21 13:12 Shock ibuprofen Allergy Intermediate Rash Verified 01/08/21 14:09 ketorolac [From Toradol] Allergy Intermediate Rash Verified 01/08/21 14:09 Penicillins Allergy Intermediate Rash Verified 01/08/21 14:09 Sulfa (Sulfonamide Allergy Intermediate Rash Verified 01/08/21 14:09 Antibiotics) tramadol Allergy Intermediate Rash Verified 01/08/21 14:09 diphenhydramine AdvReac Severe Anxiety Verified 01/08/21 13:12 [From Benadryl] Home Meds: Home Meds Omeprazole Magnesium [Prilosec Otc] 20 mg PO DAILY 12/01/17 [History] Levothyroxine [Synthroid] 50 mcg PO ACBREAKFAST tablet 12/21/17 [Rx] Ondansetron [Zofran ODT] 4 mg PO Q6H PRN #20 tab.dis 08/09/19 [Rx] Venlafaxine [Effexor XR] 150 mg PO DAILY 08/12/19 [History] QUEtiapine [SEROquel] 50 mg PO BEDTIME 08/15/20 [History] busPIRone [Buspar] 50 mg PO DAILY 12/15/20 [History] Past Medical History HEENT History: Reports: Allergic Rhinitis, Impaired Vision Other HEENT History: wears corrective lenses, dental infection Cardiovascular History: Reports: High Cholesterol Respiratory History: Reports: Sleep Apnea, Other (See Below) Other Respiratory History: left lung nodule, restrictive lung disease, cough, shortness of breath, pleural thickening, pleuritic chest pain Gastrointestinal History: Reports: Gastritis, GERD, Other (See Below) Other Gastrointestinal History: esophageal stricture, abdominal pain lower, elevated liver enzymes Genitourinary History: Reports: Urinary Incontinence, UTI, Recurrent, Other (See Below) Other Genitourinary History: implantable device interstim RLQ- removed 08/16/17; interstim neurotransmitter placed jan 2018-left buttocks. 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: Musculoskeletal History: Reports: Back Pain, Chronic, Neck Pain, Chronic, Osteoarthritis Other Musculoskeletal History: neck surgery Neurological History: Reports: Migraines, Seizure, Other (See Below) Other Neuro History: patient reports "nervous tics", nerve pain, dizziness Psychiatric History: Reports: Addiction, Anxiety, Depression, Suicide Attempt, Suicidal Ideation Other Psychiatric History: drug overdose, personality disorder, alcohol withdrawal Endocrine/Metabolic History: Reports: Hypothyroidism, Obesity/BMI 30+ Other Endocrine/Metabolic History: reports hypothyroidism 15 years ago that corrected itself Hematologic History: Reports: None Immunologic History: Reports: None Oncologic (Cancer) History: Reports: None Dermatologic History: Reports: Other (See Below) Other Dermatologic History: skin lesion - Infectious Disease History Infectious Disease History: Reports: Chicken Pox - Past Surgical History Respiratory Surgical History: Reports: Lung Biopsies Other Respiratory Surgeries/Procedures: 2014 GI Surgical History: Reports: Appendectomy, Cholecystectomy, Colonoscopy, EGD Female Surgical History: Reports: Hysterectomy, Salpingo-Oophorectomy, Tubal Ligation, Other (See Below) Other Female Surgeries/Procedures: bladder sling 09/2017 Neurological Surgical History: Reports: C-Spine, Other (See Below) Other Neurological Surgeries/Procedures: Disc removed from her neck, titanium plate inserted in 2019. Social & Family History - Family History Family Medical History: No Pertinent Family History Cardiac: Reports: Bypass, CAD, Heart Failure - Tobacco Use Tobacco Use Status *Q: Current Every Day Tobacco User Years of Tobacco use: 30 Packs/Tins Daily: 0.2 - Caffeine Use Caffeine Use: Reports: Coffee, Energy Drinks, Soda, Tea - Recreational Drug Use Recreational Drug Use: No - Living Situation & Occupation Living situation: Reports: , Other (with roomate) Occupation: Unemployed ED ROS GENERAL - Review of Systems Review Of Systems: See Below Constitutional: Reports: No Symptoms HEENT: Reports: Other (mouth feels dry) Respiratory: Denies: Shortness of Breath, Cough Cardiovascular: Denies: Chest Pain GI/Abdominal: Reports: Abdominal Pain (gone), Nausea. Denies: Vomiting Musculoskeletal: Reports: No Symptoms Skin: Reports: No Symptoms Neurological: Reports: No Symptoms ED EXAM, BEHAVIORAL HEALTH - Physical Exam Exam: See Below Exam Limited By: Other (Pt is using loud inaapropropriate language, semi cooperative for exam, blaming her ex for all of her past and current problems) General Appearance: Moderate Distress Eye Exam: Bilateral Eye: PERRL Head: Atraumatic Neck: Supple Respiratory/Chest: No Respiratory Distress, Lungs Clear, Normal Breath Sounds Cardiovascular: Regular Rate, Rhythm GI/Abdominal: Soft, Non-Tender Extremities: Normal Inspection, Normal Range of Motion Neurological: Alert, No Motor/Sensory Deficits Skin Exam: Warm, Dry, Normal color COURSE, BEHAVIORAL HEALTH COMP - Course Vital Signs: Last Vital Signs Temp 96.9 F 01/08/21 13:09 Pulse 95 01/08/21 13:09 Resp 16 01/08/21 13:09 BP 136/87 01/08/21 13:09 Pulse Ox 92 L 01/08/21 13:09 Orders, Labs, Meds: Active Orders 24 hr Category Date Time Status Peripheral IV Care [RC] . DIRECTED Care 01/08/21 13:20 Active CBC WITH AUTO DIFF [HEME] Stat Lab 01/08/21 13:20 Ordered COMPREHENSIVE METABOLIC PN,CMP [CHEM] Stat Lab 01/08/21 13:20 Ordered CORONAVIRUS COVID-19 JORDY [MOLEC] Stat Lab 01/08/21 13:20 Ordered DRUG SCREEN, URINE [URCHEM] Stat Lab 01/08/21 13:39 Ordered ETHANOL BLOOD MEDICAL [CHEM] Stat Lab 01/08/21 13:20 Ordered UA W/GABBIE RFLX IF INDICATED [URIN] Stat Lab 01/08/21 13:39 Ordered Medications Discontinued Medications Generic Name Dose Route Start Last Admin Trade Name Freq PRN Reason Stop Dose Admin Sodium Chloride 1,000 mls @ 999 mls/hr 01/08/21 13:30 Normal Saline IV ONETIME HÉCTOR Lorazepam 1 mg 01/08/21 13:23 Lorazepam 2 Mg/Ml Sdv IVPUSH 01/08/21 13:24 ONETIME ONE Lorazepam 1 mg 01/08/21 14:07 01/08/21 14:33 Lorazepam 1 Mg Tab PO 01/08/21 14:08 1 mg ONETIME ONE Administration Sodium Chloride 10 ml 01/08/21 13:20 Sodium Chloride 0.9% 10 Ml Syringe FLUSH ASDIRECTED PRN Keep Vein Open Re-Assessment/Re-Exam: 14:00.Our nurse unable to get an IV for meds or labs. Her veins are not good. Have switched the order to oral ativan. Pt is refusing that, refusing lab draw for chemistries. Geting more agitated. Police have been called to come get her, bring her to the [facility]. A medical screening exam has been done. No acute medical emergency condition is apparent at this time. 14:16. Medical alert called. Pt is on the floor face down, faking a seizure with some "jerking of her arms". However she is also yelling at our Nursing staff. Not actively seizing. Awaiting police arrival. A "hold order" has been written by staff from [facility]. They will reassess tomorrow AM, see what her condition is at that time and go from there. Departure - Departure Time of Disposition: 14:22 Disposition: Home, Self-Care 01 Condition: Fair Clinical Impression: Isopropyl alcohol poisoning, Alcohol abuse, Absence of agitated behavior, Agitation Alcohol dependency Qualifiers: Substance use status: unspecified alcohol-induced disorder Qualified Code(s): F10.29 - Alcohol dependence with unspecified alcohol-induced disorder - Discharge Information Instructions: Alcohol Use Disorder Forms: ED Department Discharge Additional Instructions: A screening medical exam has been done. No acute emergency medical condition is apparent at this time. Sepsis Event Note (ED) - Evaluation Sepsis Screening Result: No Definite Risk - Focused Exam Vital Signs: Vital Signs Temp Pulse Resp BP Pulse Ox 01/08/21 13:09 96.9 F 95 16 136/87 92 L - My Orders Last 24 Hours: My Active Orders 01/08/21 13:20 Peripheral IV Care [RC] . DIRECTED CBC WITH AUTO DIFF [HEME] Stat COMPREHENSIVE METABOLIC PN,CMP [CHEM] Stat CORONAVIRUS COVID-19 JORDY [MOLEC] Stat ETHANOL BLOOD MEDICAL [CHEM] Stat 01/08/21 13:39 DRUG SCREEN, URINE [URCHEM] Stat UA W/GABBIE RFLX IF INDICATED [URIN] Stat - Assessment/Plan Last 24 Hours: My Active Orders 01/08/21 13:20 Peripheral IV Care [RC] . DIRECTED CBC WITH AUTO DIFF [HEME] Stat COMPREHENSIVE METABOLIC PN,CMP [CHEM] Stat CORONAVIRUS COVID-19 JORDY [MOLEC] Stat ETHANOL BLOOD MEDICAL [CHEM] Stat 01/08/21 13:39 DRUG SCREEN, URINE [URCHEM] Stat UA W/GABBIE RFLX IF INDICATED [URIN] Stat
[2021-01-08] MEDS ORDERED: LORazepam 1 MG Tab PO ONE (14:07)
== END 2021-01-08 14:45 | disposition home or self-care (01) ==
LOC: JD.ED 12:43
DX: T51.2X1A Toxic effect of 2-Propanol, accidental (unintentional), initial encounter (principal); F10.29 Alcohol dependence with unspecified alcohol-induced disorder; R45.1 Restlessness and agitation; K21.9 Gastro-esophageal reflux disease without esophagitis; E03.9 Hypothyroidism, unspecified; E66.9 Obesity, unspecified; Z68.31 Body mass index [BMI] 31.0-31.9, adult; Z72.0 Tobacco use; Z88.8 Allergy status to other drugs, medicaments and biological substances; Z88.6 Allergy status to analgesic agent; Z88.5 Allergy status to narcotic agent; Z88.0 Allergy status to penicillin; Z88.2 Allergy status to sulfonamides; Z79.899 Other long term (current) drug therapy
CPT/HCPCS: 99284; A9270

== ENCOUNTER 2021-01-09 12:24 | Emergency (ER) | payer MEDICAID ==
[2021-01-09 12:51] VITALS: BP 130/95; PULSE 79
[2021-01-09] MEDS ORDERED: Acetaminophen 325 MG Tab PO ONE (13:15)
[2021-01-09] MEDS ORDERED: chlordiazePOXIDE 25 MG Cap PO ONE (13:16)
--- NOTE | 2021-01-09 13:46 | EDM.PDOC ---
ED HPI GENERAL MEDICAL PROBLEM - General Chief Complaint: Head Injury Stated Complaint: POSS HEAD INJURY Time Seen by Provider: 01/09/21 13:08 Source of Information: Reports: Patient, RN Notes Reviewed History Limitations: Reports: No Limitations - History of Present Illness INITIAL COMMENTS - FREE TEXT/NARRATIVE: Patient is a 55-year-old female returning to the emergency department with complaints of head injury and alcohol withdrawal. Patient was seen in this emergency department yesterday for evaluation after drinking rubbing alcohol at home because she did not have access to any other form of alcohol. She was very disgruntled in the emergency department and was sent to longterm on a 24-hour hold for her safety. Patient spent the evening in longterm and reports that she fell and hit her head 8 times while in longterm. She is complaining of head pain, dizziness, and blurry vision. She is quite anxious stating that she has been without her Librium for the last 2 days. Reports that she is prescribed Librium 100 mg every 4 hours. She detoxed at a facility in [facility], however returned to drinking shortly after returning. Patient has verbalized intent to harm herself on numerous different occasions. States that she would harm herself by either taking pills or overdosing on alcohol. Patient does report a history of seizures with alcohol withdrawal. She presents to the ER with a entry level marketing representative from [facility] and has been at the [facility] since yesterday; therefore has not had the oppurtunity to consume ETOH since yesterday. She denies any illicit drug use at this time. Head Pain Score (Numeric/FACES): 10 - Related Data Allergies Allergy/AdvReac Type Severity Reaction Status Date / Time sumatriptan [From Imitrex] Allergy Severe Anaphylactic Verified 01/08/21 13:12 Shock ibuprofen Allergy Intermediate Rash Verified 01/08/21 14:09 ketorolac [From Toradol] Allergy Intermediate Rash Verified 01/08/21 14:09 Penicillins Allergy Intermediate Rash Verified 01/08/21 14:09 Sulfa (Sulfonamide Allergy Intermediate Rash Verified 01/08/21 14:09 Antibiotics) tramadol Allergy Intermediate Rash Verified 01/08/21 14:09 diphenhydramine AdvReac Mild Anxiety Verified 01/09/21 14:46 [From Benadryl] Home Meds: Home Meds Omeprazole Magnesium [Prilosec Otc] 20 mg PO DAILY 12/01/17 [History] Levothyroxine [Synthroid] 50 mcg PO ACBREAKFAST tablet 12/21/17 [Rx] Ondansetron [Zofran ODT] 4 mg PO Q6H PRN #20 tab.dis 08/09/19 [Rx] Venlafaxine [Effexor XR] 150 mg PO DAILY 08/12/19 [History] QUEtiapine [SEROquel] 50 mg PO BEDTIME 08/15/20 [History] busPIRone [Buspar] 50 mg PO DAILY 12/15/20 [History] chlordiazePOXIDE [Librium] 100 mg PO TID 01/09/21 [History] Past Medical History HEENT History: Reports: Allergic Rhinitis, Impaired Vision Other HEENT History: wears corrective lenses, dental infection Cardiovascular History: Reports: High Cholesterol Respiratory History: Reports: Sleep Apnea, Other (See Below) Other Respiratory History: left lung nodule, restrictive lung disease, cough, shortness of breath, pleural thickening, pleuritic chest pain Gastrointestinal History: Reports: Gastritis, GERD, Other (See Below) Other Gastrointestinal History: esophageal stricture, abdominal pain lower, ashutosh vated liver enzymes Genitourinary History: Reports: Urinary Incontinence, UTI, Recurrent, Other (See Below) Other Genitourinary History: implantable device interstim RLQ- removed 08/16/17; interstim neurotransmitter placed jan 2018-left buttocks. HOISTER History: Reports: Musculoskeletal History: Reports: Back Pain, Chronic, Neck Pain, Chronic, Osteoarthritis Other Musculoskeletal History: neck surgery Neurological History: Reports: Migraines, Seizure, Other (See Below) Other Neuro History: patient reports "nervous tics", nerve pain, dizziness Psychiatric History: Reports: Addiction, Anxiety, Depression, Suicide Attempt, Suicidal Ideation Other Psychiatric History: drug overdose, personality disorder, alcohol withdrawal Endocrine/Metabolic History: Reports: Hypothyroidism, Obesity/BMI 30+ Other Endocrine/Metabolic History: reports hypothyroidism 15 years ago that corrected itself Hematologic History: Reports: None Immunologic History: Reports: None Oncologic (Cancer) History: Reports: None Dermatologic History: Reports: Other (See Below) Other Dermatologic History: skin lesion - Infectious Disease History Infectious Disease History: Reports: Chicken Pox - Past Surgical History HEENT Surgical History: Reports: None Cardiovascular Surgical History: Reports: None Respiratory Surgical History: Reports: Lung Biopsies Other Respiratory Surgeries/Procedures: 2014 GI Surgical History: Reports: Appendectomy, Cholecystectomy, Colonoscopy, EGD Female Surgical History: Reports: Hysterectomy, Salpingo-Oophorectomy, Tubal Ligation, Other (See Below) Other Female Surgeries/Procedures: bladder sling 09/2017 Endocrine Surgical History: Reports: None Neurological Surgical History: Reports: C-Spine, Other (See Below) Other Neurological Surgeries/Procedures: Disc removed from her neck, titanium plate inserted in 2019. Musculoskeletal Surgical History: Reports: None Oncologic Surgical History: Reports: None Social & Family History - Family History Family Medical History: No Pertinent Family History Cardiac: Reports: Bypass, CAD, Heart Failure - Tobacco Use Tobacco Use Status *Q: Never Tobacco User - Caffeine Use Caffeine Use: Reports: Coffee, Soda, Tea - Recreational Drug Use Recreational Drug Use: No - Living Situation & Occupation Living situation: Reports: , Other (with roomate) Occupation: Unemployed ED ROS GENERAL - Review of Systems Review Of Systems: Comprehensive ROS is negative, except as noted in HPI. ED EXAM, HEAD INJURY - Physical Exam Exam: See Below Exam Limited By: No Limitations General Appearance: Alert, No Apparent Distress, Anxious Head: Other (faint area of ecchymosis to right upper forehead.). No: Scalp Swelling, Active Bleeding, Valenzuela's Sign, Facial Abrasions, Facial Swelling, Raccoon Eyes Nexus Criteria: Posterior, Midline Cervical Tenderness, Evidence of Intoxication, Altered Level of Consciousness, Focal Neurological Deficit, Painful Distraction Injuries Eyes: Bilateral Eye: PERRL Ears: Normal External Exam, Normal Canal, Hearing Grossly Normal, Normal TMs Neck: Non-Tender, Full Range of Motion, Normal Alignment, Normal Inspection Respiratory: No Respiratory Distress, Lungs Clear, Normal Breath Sounds, No Accessory Muscle Use, Chest Non-Tender Cardiovascular: Normal Peripheral Pulses, Regular Rate, Rhythm, No Edema, No Gallop, No JVD, No Murmur, No Rub GI/Abdominal Exam: Normal Bowel Sounds, Soft, Non-Tender, No Organomegaly, No Distention, No Abnormal Bruit, No Mass Back Exam: Full Range of Motion, Normal Inspection, NT Extremities: Normal Inspection, Normal Range of Motion, Non-Tender, No Pedal Edema, Normal Capillary Refill 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 nml As Tested, No Motor/Sensory Deficits, Alert, Oriented x 3 - [place] Coma Score Best Eye Response (Lucila): (4) Open Spontaneously Best Verbal Response (Lucila): (5) Oriented Best Motor Response (Lucila): (6) Obeys Commands Lucila Total: 15 #1 Interpretation EKG Date: 01/09/21 Time: 13:17 Rhythm: NSR Rate (Beats/Min): 74 Flushing: Normal P-Wave: Present QRS: Normal ST-T: Normal QT: Normal Course - Vital Signs Last Recorded V/S: Last Vital Signs Temp 97.5 F 01/09/21 12:49 Pulse 79 01/09/21 12:49 Resp 20 01/09/21 12:49 BP 130/95 H 01/09/21 12:49 Pulse Ox 97 01/09/21 12:49 - Orders/Labs/Meds Labs: Laboratory Tests 01/09/21 01/09/21 01/09/21 Range/Units 12:55 13:55 13:55 WBC 7.30 (3.98-10.04) K/mm3 RBC 4.59 (3.98-5.22) M/mm3 Hgb 14.1 (11.2-15.7) gm/dl Hct 43.1 (34.1-44.9) % MCV 93.9 (79.4-94.8) fl MCH 30.7 (25.6-32.2) pg MCHC 32.7 (32.2-35.5) g/dl RDW Std Deviation 43.8 (36.4-46.3) fL Plt Count 294 (182-369) K/mm3 MPV 10.5 (9.4-12.3) fl Neutrophils % (Manual) 88 H (40-60) % Band Neutrophils % 0 (0-10) % Lymphocytes % (Manual) 11 L (20-40) % Atypical Lymphs % 0 % Monocytes % (Manual) 0 L (2-10) % Eosinophils % (Manual) 0 L (0.7-5.8) % Basophils % (Manual) 1 (0.1-1.2) Platelet Estimate Adequate RBC Morph Comment Normal Sodium 142 (136-145) mEq/L Potassium 3.5 (3.5-5.1) mEq/L Chloride 103 (98-107) mEq/L Carbon Dioxide 28 (21-32) mEq/L Anion Gap 14.5 (5-15) BUN 8 (7-18) mg/dL Creatinine 1.2 H (0.55-1.02) mg/dL Est Cr Clr Drug Dosing 49.00 mL/min Estimated GFR (MDRD) 46 (>60) mL/min BUN/Creatinine Ratio 6.7 L (14-18) Glucose 100 H (70-99) mg/dL Calcium 9.2 (8.5-10.1) mg/dL Total Bilirubin 0.8 (0.2-1.0) mg/dL AST 35 (15-37) U/L ALT 19 (14-59) U/L Alkaline Phosphatase 133 H (46-116) U/L Total Protein 7.5 (6.4-8.2) g/dl Albumin 3.9 (3.4-5.0) g/dl Globulin 3.6 gm/dL Albumin/Globulin Ratio 1.1 (1-2) TSH 3rd Generation 0.500 (0.358-3.74) uIU/mL HCG, Qual (NEGATIVE) Salicylates (2.8-20) mg/dL Acetaminophen 0 L (10-30) ug/mL Ethyl Alcohol 0.00 (0.00) gm% SARS-CoV-2 RNA (JORDY) Negative (NEGATIVE) 01/09/21 01/09/21 Range/Units 13:55 13:55 WBC (3.98-10.04) K/mm3 RBC (3.98-5.22) M/mm3 Hgb (11.2-15.7) gm/dl Hct (34.1-44.9) % MCV (79.4-94.8) fl MCH (25.6-32.2) pg MCHC (32.2-35.5) g/dl RDW Std Deviation (36.4-46.3) fL Plt Count (182-369) K/mm3 MPV (9.4-12.3) fl Neutrophils % (Manual) (40-60) % Band Neutrophils % (0-10) % Lymphocytes % (Manual) (20-40) % Atypical Lymphs % % Monocytes % (Manual) (2-10) % Eosinophils % (Manual) (0.7-5.8) % Basophils % (Manual) (0.1-1.2) Platelet Estimate RBC Morph Comment Sodium (136-145) mEq/L Potassium (3.5-5.1) mEq/L Chloride (98-107) mEq/L Carbon Dioxide (21-32) mEq/L Anion Gap (5-15) BUN (7-18) mg/dL Creatinine (0.55-1.02) mg/dL Est Cr Clr Drug Dosing mL/min Estimated GFR (MDRD) (>60) mL/min BUN/Creatinine Ratio (14-18) Glucose (70-99) mg/dL Calcium (8.5-10.1) mg/dL Total Bilirubin (0.2-1.0) mg/dL AST (15-37) U/L ALT (14-59) U/L Alkaline Phosphatase (46-116) U/L Total Protein (6.4-8.2) g/dl Albumin (3.4-5.0) g/dl Globulin gm/dL Albumin/Globulin Ratio (1-2) TSH 3rd Generation (0.358-3.74) uIU/mL HCG, Qual Negative (NEGATIVE) Salicylates 1.1 L (2.8-20) mg/dL Acetaminophen (10-30) ug/mL Ethyl Alcohol (0.00) gm% SARS-CoV-2 RNA (JORDY) (NEGATIVE) Meds: Medications Discontinued Medications Generic Name Dose Route Start Last Admin Trade Name Ashvin PRN Reason Stop Dose Admin Acetaminophen 975 mg 01/09/21 13:15 01/09/21 13:57 Acetaminophen 325 Mg Tab PO 01/09/21 13:16 975 mg NOW ONE Administration Chlordiazepoxide HCl 50 mg 01/09/21 13:16 01/09/21 13:56 Chlordiazepoxide 25 Mg Cap PO 01/09/21 13:17 50 mg ONETIME ONE Administration Lorazepam 0.5 mg 01/09/21 14:39 01/09/21 14:51 Lorazepam 0.5 Mg Tab PO 01/09/21 14:40 Not Given ONETIME ONE Lorazepam 1 mg 01/09/21 14:42 01/09/21 14:48 Lorazepam 1 Mg Tab PO 01/09/21 14:43 1 mg ONETIME ONE Administration Lorazepam 0.5 mg 01/09/21 16:29 01/09/21 16:35 Lorazepam 0.5 Mg Tab PO 01/09/21 16:30 0.5 mg ONETIME ONE Administration - Re-Assessments/Exams Free Text/Narrative Re-Assessment/Exam: Patient is a 55-year-old female presenting to the emergency department with complaints of head injury. She was seen in this emergency department yesterday for evaluation after consuming isopropyl alcohol. [facility] a [facility]-hour hold. She was evaluated by [facility] there and brought to the emergency department as she is complaining of head pain due to numerous falls while in longterm. Patient reports chronic alcoholism but has not consumed alcohol since yesterday as she has been in longterm. Reports that she normally takes Librium 100 mg 3 times daily, however she has been without it for at least 2 days. On exam, she does have an area of faint ecchymosis to her right upper forehead. This area is tender to palpation. She is complaining of pain. Discussed with patient that I will give her Tylenol for pain, however she will not be receiving narcotic medications. She initially was upset by this but did calm down. I will also order Librium 50 mg p.o.. I have ordered a psychiatric work-up as well as head CT. Patient will benefit from inpatient psychiatric treatment. [facility] will initiate a formal commitment as her hold from yesterday has . 01/09/21 14:52 Hematology is unremarkable. EtOH 0.00. Head CT shows no acute abnormalities. Patient continues to complain of anxiety after the Librium. Of ordered Ativan 1 mg p.o. to be given. Committal paperwork has been completed by Otoniel glover from [facility]. Has been signed off by the states new car get ready mechanic. Call placed to [facility] in [place]. They do have an adult psych bed available, however their psychiatrist is currently doing an evaluation. She will call me back. 01/09/21 15:[address]. Hutton at [facility] in [place]. She has accepted the patient for transfer. We will contact [facility] to arrange for transportation. 01/09/21 16:36 Patient awoke from sleeping and is complaining of worsening anxiety. She is threatening to leave the facility. I have ordered Ativan 0.5 mg p.o. If patient attempts to leave, law enforcement will be notified. [facility] be here to transport the patient to [place] at 1700. Departure - Departure Time of Disposition: 15:16 Disposition: DC/Tfer to Acute Hospital 02 Condition: Good Clinical Impression: Suicidal ideation Alcohol dependency Qualifiers: Substance use status: unspecified alcohol-induced disorder Qualified Code(s): F10.29 - Alcohol dependence with unspecified alcohol-induced disorder Head injury Qualifiers: Encounter type: initial encounter Qualified Code(s): S09.90XA - Unspecified injury of head, initial encounter - Discharge Information Referrals: Consuelo Julian NP [Primary Care Provider] - Forms: ED Department Discharge
--- NOTE | 2021-01-09 13:50 | CT ---
Head CT Technique: Multiple axial sections through the brain were obtained. Intravenous contrast was not utilized. Reconstructed coronal and sagittal images were obtained. Comparison: Prior head CT study of 04/29/20. Findings: Ventricles along with basal cisterns and sulci over the convexities are mildly prominent. No abnormal parenchymal densities are seen. No evidence of intracranial hemorrhage is seen. No midline shift or mass-effect is seen. Bone window settings were reviewed. Visualized paranasal sinuses and mastoid sinuses are clear. No acute calvarial abnormality is appreciated. Impression: 1. Mild generalized atrophy is seen. 2. No acute abnormality is identified on noncontrast head CT study. 3. No change is seen from prior head CT exam. Diagnostic code #2
[2021-01-09] MEDS ORDERED: LORazepam 0.5 MG Tab PO ONE ×2 (14:39→16:29)
[2021-01-09] MEDS ORDERED: LORazepam 1 MG Tab PO ONE (14:42)
== END 2021-01-09 17:05 ==
LOC: JD.ED 12:24 → SUPCPDRO 12:24 → JD.ED 17:05
DX: S00.83XA Contusion of other part of head, initial encounter (principal); F10.29 Alcohol dependence with unspecified alcohol-induced disorder; R45.851 Suicidal ideations; E78.00 Pure hypercholesterolemia, unspecified; E03.9 Hypothyroidism, unspecified; E66.9 Obesity, unspecified; Z68.30 Body mass index [BMI] 30.0-30.9, adult; Z88.0 Allergy status to penicillin; Z88.2 Allergy status to sulfonamides; Z88.6 Allergy status to analgesic agent; Z88.8 Allergy status to other drugs, medicaments and biological substances; Z20.822 Contact with and (suspected) exposure to COVID-19; Y90.0 Blood alcohol level of less than 20 mg/100 ml; W18.09XA Striking against other object with subsequent fall, initial encounter; Y92.009 Unspecified place in unspecified non-institutional (private) residence as the place of occurrence of the external cause
CPT/HCPCS: 36415; 70450; 70450-26; 80053; 80143; 80179; 80307; 84443; 84703; 85007; 85027; 93005; 99285-25; A9270-GY; U0002

== ENCOUNTER 2021-03-14 08:33 | Emergency (ER) | payer MEDICAID ==
--- NOTE | 2021-03-14 08:45 | EDM.PDOC ---
ED HPI GENERAL MEDICAL PROBLEM - General Chief Complaint: Chest Pain Stated Complaint: GURPREET AMB Time Seen by Provider: 03/14/21 08:41 - History of Present Illness INITIAL COMMENTS - FREE TEXT/NARRATIVE: 55-year-old female presents the emergency room with chest pain. She was brought in by EMS. The patient is having worsening chest pain on the left side this really accelerated this morning. Patient has significant history of slipping on the ice on Wednesday and bumping into a tree with the left side of her chest and since then she has had this left-sided anterior lateral chest pain. According to the patient she has been staying off alcohol for the most part occasionally she has a drink I have cautioned her against doing this. Patient does have a history of coronary artery disease. left rib Pain Score (Numeric/FACES): 8 - Related Data Allergies Allergy/AdvReac Type Severity Reaction Status Date / Time sumatriptan [From Imitrex] Allergy Severe Anaphylactic Verified 03/14/21 08:59 Shock ibuprofen Allergy Intermediate Rash Verified 03/14/21 08:59 ketorolac [From Toradol] Allergy Intermediate Rash Verified 03/14/21 08:59 Penicillins Allergy Intermediate Rash Verified 03/14/21 08:59 Sulfa (Sulfonamide Allergy Intermediate Rash Verified 03/14/21 08:59 Antibiotics) tramadol Allergy Intermediate Rash Verified 03/14/21 08:59 diphenhydramine AdvReac Mild Anxiety Verified 03/14/21 08:59 [From Benadryl] Home Meds: Home Meds Omeprazole Magnesium [Prilosec Otc] 20 mg PO DAILY 12/01/17 [History] Levothyroxine [Synthroid] 50 mcg PO ACBREAKFAST tablet 12/21/17 [Rx] Ondansetron [Zofran ODT] 4 mg PO Q6H PRN #20 tab.dis 08/09/19 [Rx] Venlafaxine [Effexor XR] 150 mg PO DAILY 08/12/19 [History] QUEtiapine [SEROquel] 50 mg PO BEDTIME 08/15/20 [History] busPIRone [Buspar] 50 mg PO DAILY 12/15/20 [History] chlordiazePOXIDE [Librium] 100 mg PO TID 01/09/21 [History] Hydrocodone/Acetaminophen [HYDROcodone-Acetaminophen 5-325 MG] 1 each PO Q6H PRN #10 tab 03/14/21 [Rx] Past Medical History HEENT History: Reports: Allergic Rhinitis, Impaired Vision Other HEENT History: wears corrective lenses, dental infection Cardiovascular History: Reports: High Cholesterol Respiratory History: Reports: Sleep Apnea, Other (See Below) Other Respiratory History: left lung nodule, restrictive lung disease, cough, shortness of breath, pleural thickening, pleuritic chest pain Gastrointestinal History: Reports: Gastritis, GERD, Other (See Below) Other Gastrointestinal History: esophageal stricture, abdominal pain lower, elevated liver enzymes Genitourinary History: Reports: Urinary Incontinence, UTI, Recurrent, Other (See Below) Other Genitourinary History: implantable device interstim RLQ- removed 08/16/17; interstim neurotransmitter placed jan 2018-left buttocks. [employer] History: Reports: Musculoskeletal History: Reports: Back Pain, Chronic, Neck Pain, Chronic, Osteoarthritis Other Musculoskeletal History: neck surgery Neurological History: Reports: Migraines, Seizure, Other (See Below) Other Neuro History: patient reports "nervous tics", nerve pain, dizziness Psychiatric History: Reports: Addiction, Anxiety, Depression, Suicide Attempt, Suicidal Ideation Other Psychiatric History: drug overdose, personality disorder, alcohol withdrawal Endocrine/Metabolic History: Reports: Hypothyroidism, Obesity/BMI 30+ Other Endocrine/Metabolic History: reports hypothyroidism 15 years ago that corrected itself Hematologic History: Reports: None Immunologic History: Reports: None Oncologic (Cancer) History: Reports: None Dermatologic History: Reports: Other (See Below) Other Dermatologic History: skin lesion - Infectious Disease History Infectious Disease History: Reports: Chicken Pox - Past Surgical History HEENT Surgical History: Reports: None Cardiovascular Surgical History: Reports: None Respiratory Surgical History: Reports: Lung Biopsies Other Respiratory Surgeries/Procedures: 2014 GI Surgical History: Reports: Appendectomy, Cholecystectomy, Colonoscopy, EGD Female Surgical History: Reports: Hysterectomy, Salpingo-Oophorectomy, Tubal Ligation, Other (See Below) Other Female Surgeries/Procedures: bladder sling 09/2017 Endocrine Surgical History: Reports: None Neurological Surgical History: Reports: C-Spine, Other (See Below) Other Neurological Surgeries/Procedures: Disc removed from her neck, titanium plate inserted in 2019. Musculoskeletal Surgical History: Reports: None Oncologic Surgical History: Reports: None Social & Family History - Family History Family Medical History: No Pertinent Family History Cardiac: Reports: Bypass, CAD, Heart Failure - Tobacco Use Tobacco Use Status *Q: Never Tobacco User - Caffeine Use Caffeine Use: Reports: Coffee, Soda, Tea - Recreational Drug Use Recreational Drug Use: No - Living Situation & Occupation Living situation: Reports: , Other (with roomate) Occupation: Unemployed ED ROS GENERAL - Review of Systems Review Of Systems: See Below Constitutional: Reports: No Symptoms HEENT: Reports: No Symptoms Respiratory: Denies: Shortness of Breath Cardiovascular: Reports: Chest Pain. Denies: Blood Pressure Problem, Edema Endocrine: Reports: No Symptoms GI/Abdominal: Reports: No Symptoms Musculoskeletal: Reports: Other (Chest pain believed to be chest wall) Skin: Reports: No Symptoms Neurological: Reports: No Symptoms Psychiatric: Reports: No Symptoms ED EXAM, GENERAL - Physical Exam Exam: See Below Exam Limited By: No Limitations General Appearance: Alert, No Apparent Distress Head: Atraumatic, Normocephalic Neck: Normal Inspection, Supple, Non-Tender, Full Range of Motion Respiratory/Chest: No Respiratory Distress, Lungs Clear, Normal Breath Sounds Cardiovascular: Regular Rate, Rhythm, No Edema, No Murmur GI/Abdominal: Normal Bowel Sounds, Soft, Non-Tender Back Exam: Normal Inspection. No: CVA Tenderness (L), CVA Tenderness (R) Extremities: Normal Inspection, No Pedal Edema Neurological: Alert, Oriented, Normal Cognition #1 Interpretation EKG Date: 03/14/21 Rhythm: NSR [place]: Normal P-Wave: Present QRS: Normal ST-T: Other (Nonspecific ST depression V3 V4 V5) Comparison: No Change (No significant change from 08/15/2019) EKG Interpretation Comments: Abnormal Course - Vital Signs Last Recorded V/S: Last Vital Signs Temp 36.0 C L 03/14/21 12:33 Pulse 86 03/14/21 12:33 Resp 16 03/14/21 12:33 BP 109/74 03/14/21 12:33 Pulse Ox 96 03/14/21 12:33 - Orders/Labs/Meds Labs: Laboratory Tests 03/14/21 03/14/21 03/14/21 Range/Units 09:00 09:00 09:00 WBC 6.91 (3.98-10.04) K/mm3 RBC 4.81 (3.98-5.22) M/mm3 Hgb 14.8 (11.2-15.7) gm/dl Hct 47.2 H (34.1-44.9) % MCV 98.1 H D (79.4-94.8) fl MCH 30.8 (25.6-32.2) pg MCHC 31.4 L (32.2-35.5) g/dl RDW Std Deviation 47.7 H (36.4-46.3) fL Plt Count 323 (182-369) K/mm3 MPV 10.5 (9.4-12.3) fl Neut % (Auto) 69.9 (34.0-71.1) % Lymph % (Auto) 19.1 L (19.3-51.7) % Edgar % (Auto) 6.4 (4.7-12.5) % Eos % (Auto) 4.2 (0.7-5.8) Baso % (Auto) 0.3 (0.1-1.2) % Neut # (Auto) 4.83 (1.56-6.13) K/mm3 Lymph # (Auto) 1.32 (1.18-3.74) K/mm3 Edgar # (Auto) 0.44 H (0.24-0.36) K/mm3 Eos # (Auto) 0.29 (0.04-0.36) K/mm3 Baso # (Auto) 0.02 (0.01-0.08) K/mm3 PT 10.1 (9.7-12.0) SECONDS INR < 0.93 APTT 25.1 (21.7-31.4) SECONDS D-Dimer, Quantitative 0.32 (0.19-0.50) mg/L Sodium 144 (136-145) mEq/L Potassium 3.9 (3.5-5.1) mEq/L Chloride 106 (98-107) mEq/L Carbon Dioxide 25 (21-32) mEq/L Anion Gap 16.9 H (5-15) BUN 12 (7-18) mg/dL Creatinine 0.7 (0.55-1.02) mg/dL Est Cr Clr Drug Dosing 77.49 mL/min Estimated GFR (MDRD) > 60 (>60) mL/min BUN/Creatinine Ratio 17.1 (14-18) Glucose 82 (70-99) mg/dL Calcium 9.1 (8.5-10.1) mg/dL Total Bilirubin 0.4 (0.2-1.0) mg/dL AST 22 (15-37) U/L ALT 27 (14-59) U/L Alkaline Phosphatase 139 H (46-116) U/L Troponin I < 0.017 (0.00-0.056) ng/mL Total Protein 7.5 (6.4-8.2) g/dl Albumin 3.6 (3.4-5.0) g/dl Globulin 3.9 gm/dL Albumin/Globulin Ratio 0.9 L (1-2) 03/14/21 Range/Units 11:35 WBC (3.98-10.04) K/mm3 RBC (3.98-5.22) M/mm3 Hgb (11.2-15.7) gm/dl Hct (34.1-44.9) % MCV (79.4-94.8) fl MCH (25.6-32.2) pg MCHC (32.2-35.5) g/dl RDW Std Deviation (36.4-46.3) fL Plt Count (182-369) K/mm3 MPV (9.4-12.3) fl Neut % (Auto) (34.0-71.1) % Lymph % (Auto) (19.3-51.7) % Edgar % (Auto) (4.7-12.5) % Eos % (Auto) (0.7-5.8) Baso % (Auto) (0.1-1.2) % Neut # (Auto) (1.56-6.13) K/mm3 Lymph # (Auto) (1.18-3.74) K/mm3 Edgar # (Auto) (0.24-0.36) K/mm3 Eos # (Auto) (0.04-0.36) K/mm3 Baso # (Auto) (0.01-0.08) K/mm3 PT (9.7-12.0) SECONDS INR APTT (21.7-31.4) SECONDS D-Dimer, Quantitative (0.19-0.50) mg/L Sodium (136-145) mEq/L Potassium (3.5-5.1) mEq/L Chloride (98-107) mEq/L Carbon Dioxide (21-32) mEq/L Anion Gap (5-15) BUN (7-18) mg/dL Creatinine (0.55-1.02) mg/dL Est Cr Clr Drug Dosing mL/min Estimated GFR (MDRD) (>60) mL/min BUN/Creatinine Ratio (14-18) Glucose (70-99) mg/dL Calcium (8.5-10.1) mg/dL Total Bilirubin (0.2-1.0) mg/dL AST (15-37) U/L ALT (14-59) U/L Alkaline Phosphatase (46-116) U/L Troponin I < 0.017 (0.00-0.056) ng/mL Total Protein (6.4-8.2) g/dl Albumin (3.4-5.0) g/dl Globulin gm/dL Albumin/Globulin Ratio (1-2) Meds: Medications Discontinued Medications Generic Name Dose Route Start Last Admin Trade Name Freq PRN Reason Stop Dose Admin Hydrocodone Bitart/Acetaminophen 1 tab 03/14/21 12:21 03/14/21 12:30 Acetaminophen/Hydrocodone 325-5 Mg Tab PO 03/14/21 12:22 1 tab ONETIME ONE Administration Aspirin 324 mg 03/14/21 08:58 03/14/21 09:32 Aspirin 81 Mg Tab.Chew PO 03/14/21 08:59 324 mg ONETIME ONE Administration Morphine Sulfate 2 mg 03/14/21 08:58 03/14/21 09:30 Morphine 2 Mg/Ml Syringe IVPUSH 03/14/21 08:59 2 mg ONETIME ONE Administration Morphine Sulfate 2 mg 03/14/21 10:55 03/14/21 11:05 Morphine 2 Mg/Ml Syringe IVPUSH 03/14/21 10:56 2 mg ONETIME ONE Administration - Re-Assessments/Exams Free Text/Narrative Re-Assessment/Exam: 03/14/21 12:26 Laboratory evaluation is unrevealing chest x-ray showed nodular density within the left upper chest did follow-up with the CT noted rib fractures noted no left upper lobe density identified on CT. Patient received 4 mg of morphine with some relief. I will not give her any more morphine. I will send her home with a few Ocate's. Departure - Departure Time of Disposition: 12:30 Disposition: Home, Self-Care 01 Clinical Impression: Chest wall pain - Discharge Information Prescriptions: Hydrocodone/Acetaminophen [HYDROcodone-Acetaminophen 5-325 MG] 1 each PO Q6H PRN #10 tab PRN Reason: Pain Instructions: Chest Wall Pain, [id number] Referrals: Felicity Ash PA-C [Primary Care Provider] - Forms: ED Department Discharge Additional Instructions: Return to the emergency room with any questions problems or worsening symptoms. Follow-up with your regular healthcare provider early this next week for recheck if needed. I have given you a few hydrocodone take 1 every 6 hours as needed and then after this use Tylenol no more than 1000 mg every 6 hours. Sepsis Event Note (ED) - Evaluation Sepsis Screening Result: No Definite Risk - Focused Exam Vital Signs: Vital Signs Temp Pulse Resp BP Pulse Ox 03/14/21 12:33 36.0 C L 86 16 109/74 96 03/14/21 08:35 36.9 C 89 18 145/87 H 95
[2021-03-14] MEDS ORDERED: Morphine 2 MG/ML SYRINGE IVPUSH ONE ×2 (08:58→10:55)
[2021-03-14] MEDS ORDERED: Aspirin 81 MG Tab.Chew PO ONE (08:58)
--- NOTE | 2021-03-14 09:53 | CR ---
Chest: Frontal view of the chest was obtained. Comparison: Prior chest x-ray of 09/11/20. Heart size and mediastinum are within normal limits. Very minimal atelectasis is seen within the left lung base. Thick nodular density is noted within the left upper chest. This is not definitely seen on prior study and further workup will be recommended. Lungs otherwise are clear. Previous cervical spine surgery is noted. No acute osseous abnormality is appreciated. Impression: 1. Nodular density within the left upper chest. This is most likely incidental but recommend noncontrast chest CT study to confirm. 2. Slight atelectasis within the left lung base. 3. Nothing acute is otherwise seen. Diagnostic code #3
--- NOTE | 2021-03-14 12:00 | CT ---
CT chest Technique: Multiple axial sections through the chest were obtained. Intravenous contrast was not utilized. Reconstructed coronal and sagittal images were obtained. Comparison: Prior chest x-ray performed earlier on the same day (9:22 AM) and prior chest CT of 12/18/17. Findings: Lungs show no acute parenchymal change. Prior nodular density seen on recent chest x-ray within the left upper chest is not confirmed as a lung abnormality. Thoracic aorta shows no aneurysm. No mediastinal adenopathy is seen. No axillary adenopathy is noted. No pericardial thickening is seen. Visualized upper abdominal structures show prior cholecystectomy. Bone window settings were reviewed which show prior cervical spine surgery. No acute osseous abnormality is appreciated. Impression: 1. No nodule is seen as suggested on prior chest x-ray within the left upper chest. 2. Nothing acute is seen on noncontrast chest CT study. Diagnostic code #2
[2021-03-14] MEDS ORDERED: Acetaminophen/HYDROcodone 325-5 MG Tab PO ONE (12:21)
[2021-03-14 12:34] VITALS: BP 109/74; PULSE 86
== END 2021-03-14 12:58 | disposition home or self-care (01) ==
LOC: JD.ED 08:33
DX: R07.89 Other chest pain (principal); E78.00 Pure hypercholesterolemia, unspecified; K21.9 Gastro-esophageal reflux disease without esophagitis; E03.9 Hypothyroidism, unspecified; E66.9 Obesity, unspecified; Z68.35 Body mass index [BMI] 35.0-35.9, adult; Z88.0 Allergy status to penicillin; Z88.6 Allergy status to analgesic agent; Z88.8 Allergy status to other drugs, medicaments and biological substances; Z88.2 Allergy status to sulfonamides; Z88.5 Allergy status to narcotic agent; Z79.899 Other long term (current) drug therapy
CPT/HCPCS: 36415; 71045; 71045-26; 71250; 71250-26; 80053; 84484; 85025; 85379; 85610; 85730; 93005; 93010; 96374; 96376; 99284-25; 99285; A9270-GY; J2270

== ENCOUNTER 2021-03-25 10:46 | Emergency (ER) | payer MEDICAID ==
[2021-03-25 10:57] VITALS: BP 120/87; PULSE 77
[2021-03-25] MEDS ORDERED: Sodium Chloride 0.9% 10 ML Syringe FLUSH PRN (11:10)
[2021-03-25] MEDS ORDERED: LORazepam 2 MG/ML SDV IVPUSH ONE ×2 (11:45→14:20)
[2021-03-25] MEDS ORDERED: Metoclopramide 10 MG/2 ML SDV IVPUSH ONE (11:45)
--- NOTE | 2021-03-25 12:16 | EDM.PDOCBH ---
ED HPI GENERAL MEDICAL PROBLEM - General Chief Complaint: Drug or Alcohol Abuse Stated Complaint: new ambulance Time Seen by Provider: 03/25/21 11:05 Source of Information: Reports: Patient History Limitations: Reports: No Limitations - History of Present Illness INITIAL COMMENTS - FREE TEXT/NARRATIVE: 55-year-old female who is well-known to this emergency department for numerous behavioral health as well as alcohol intoxication visits arrives to emergency department. She presented via [facility] ambulance [facility] for complaints of withdrawal from alcohol. Patient states her last drink was last evening around 1999. She states she has been drinking vodka of 1 pint daily for the past 3 weeks. Patient states she has been in contact with [facility] er and requests to be admitted for detox however she states she does not want to go to [facility]. Patient denies any recreational drug use or smoking history. She states her primary care provider is FISH Maxwell. The time of my exam, the patient has tremors noted. Vital signs remained stable. She is not tachycardic or hypertensive at this time. Will obtain lab studies as well as medicate the patient with Ativan and Reglan. Right Chest Pain Score (Numeric/FACES): 8 - Related Data Allergies Allergy/AdvReac Type Severity Reaction Status Date / Time sumatriptan [From Imitrex] Allergy Severe Anaphylactic Verified 03/25/21 10:57 Shock ibuprofen Allergy Intermediate Rash Verified 03/25/21 10:57 ketorolac [From Toradol] Allergy Intermediate Rash Verified 03/25/21 10:57 Penicillins Allergy Intermediate Rash Verified 03/25/21 10:57 Sulfa (Sulfonamide Allergy Intermediate Rash Verified 03/25/21 10:57 Antibiotics) tramadol Allergy Intermediate Rash Verified 03/25/21 10:57 diphenhydramine AdvReac Mild Anxiety Verified 03/25/21 10:57 [From Benadryl] Home Meds: Home Meds Omeprazole Magnesium [Prilosec Otc] 20 mg PO DAILY 12/01/17 [History] Levothyroxine [Synthroid] 50 mcg PO ACBREAKFAST tablet 12/21/17 [Rx] Venlafaxine [Effexor XR] 150 mg PO DAILY 08/12/19 [History] QUEtiapine [SEROquel] 50 mg PO BEDTIME 08/15/20 [History] busPIRone [Buspar] 50 mg PO DAILY 12/15/20 [History] Past Medical History HEENT History: Reports: Allergic Rhinitis, Impaired Vision Other HEENT History: wears corrective lenses, dental infection Cardiovascular History: Reports: High Cholesterol Respiratory History: Reports: Sleep Apnea, Other (See Below) Other Respiratory History: left lung nodule, restrictive lung disease, cough, shortness of breath, pleural thickening, pleuritic chest pain Gastrointestinal History: Reports: Gastritis, GERD, Other (See Below) Other Gastrointestinal History: esophageal stricture, abdominal pain lower, elevated liver enzymes Genitourinary History: Reports: Urinary Incontinence, UTI, Recurrent, Other (See Below) Other Genitourinary History: implantable device interstim RLQ- removed 08/16/17; interstim neurotransmitter placed jan 2018-left buttocks. 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: Musculoskeletal History: Reports: Back Pain, Chronic, Neck Pain, Chronic, Osteoarthritis Other Musculoskeletal History: neck surgery Neurological History: Reports: Migraines, Seizure, Other (See Below) Other Neuro History: patient reports "nervous tics", nerve pain, dizziness Psychiatric History: Reports: Addiction, Anxiety, Depression, Suicide Attempt, Suicidal Ideation Other Psychiatric History: drug overdose, personality disorder, alcohol withdrawal Endocrine/Metabolic History: Reports: Hypothyroidism, Obesity/BMI 30+ Other Endocrine/Metabolic History: reports hypothyroidism 15 years ago that corrected itself Hematologic History: Reports: None Immunologic History: Reports: None Oncologic (Cancer) History: Reports: None Dermatologic History: Reports: Other (See Below) Other Dermatologic History: skin lesion - Infectious Disease History Infectious Disease History: Reports: Chicken Pox - Past Surgical History HEENT Surgical History: Reports: None Cardiovascular Surgical History: Reports: None Respiratory Surgical History: Reports: Lung Biopsies Other Respiratory Surgeries/Procedures: 2014 GI Surgical History: Reports: Appendectomy, Cholecystectomy, Colonoscopy, EGD Female Surgical History: Reports: Hysterectomy, Salpingo-Oophorectomy, Tubal Ligation, Other (See Below) Other Female Surgeries/Procedures: bladder sling 09/2017 Endocrine Surgical History: Reports: None Neurological Surgical History: Reports: C-Spine, Other (See Below) Other Neurological Surgeries/Procedures: Disc removed from her neck, titanium plate inserted in 2019. Musculoskeletal Surgical History: Reports: None Oncologic Surgical History: Reports: None Social & Family History - Family History Family Medical History: No Pertinent Family History Cardiac: Reports: Bypass, CAD, Heart Failure - Tobacco Use Tobacco Use Status *Q: Never Tobacco User Second Hand Smoke Exposure: No - Caffeine Use Caffeine Use: Reports: None Caffeine Use Comment: seldom - Recreational Drug Use Recreational Drug Use: No - Living Situation & Occupation Living situation: Reports: , Other (with roomate) Occupation: Unemployed ED ROS GENERAL - Review of Systems Review Of Systems: Comprehensive ROS is negative, except as noted in HPI. ED EXAM, BEHAVIORAL HEALTH - Physical Exam Exam: See Below Exam Limited By: No Limitations General Appearance: Alert, WD/WN, No Apparent Distress Ears: Normal External Exam, Hearing Grossly Normal Nose: Normal Inspection Throat/Mouth: Normal Inspection, Normal Lips, Normal Voice, No Airway Compromise Head: Atraumatic, Normocephalic Neck: Normal Inspection, Supple, Non-Tender, Full Range of Motion Respiratory/Chest: No Respiratory Distress, Lungs Clear, Normal Breath Sounds, No Accessory Muscle Use, Chest Non-Tender Cardiovascular: Normal Peripheral Pulses, Regular Rate, Rhythm, No Edema, No Murmur GI/Abdominal: Normal Bowel Sounds, Soft, Non-Tender, No Distention (Female) Exam: Deferred Rectal (Female) Exam: Deferred Back Exam: Normal Inspection Extremities: Normal Inspection Neurological: Alert, Normal Mood/Affect, Normal Cognition, Oriented x 3 Psychiatric: Alert, Normal Affect, Normal Cognition, Normal Mood, Oriented Skin Exam: Warm, Dry, Intact, Normal color, No rash COURSE, BEHAVIORAL HEALTH COMP - Course Vital Signs: Last Vital Signs Temp 97.6 F 03/25/21 10:50 Pulse 77 03/25/21 10:50 Resp 20 03/25/21 10:50 BP 120/87 03/25/21 10:50 Pulse Ox 98 03/25/21 10:50 Orders, Labs, Meds: Active Orders 24 hr Category Date Time Status Sodium Chloride 0.9% [Saline Flush] Med 03/25/21 11:10 Active 10 ml FLUSH ASDIRECTED PRN Saline Lock Insert [OM.PC] Stat Oth 03/25/21 11:10 Ordered Medication Orders Sodium Chloride (Sodium Chloride 0.9% 10 Ml Syringe) 10 ml FLUSH ASDIRECTED PRN PRN Reason: Keep Vein Open Last Admin: 03/25/21 11:57 Dose: 10 ml Documented by: HERMMIC Laboratory Tests 03/25/21 03/25/2103/25/21 Range/Units 11:30 11:30 11:30 WBC 7.07 (3.98-10.04) K/mm3 RBC 4.61 (3.98-5.22) M/mm3 Hgb 14.5 (11.2-15.7) gm/dl Hct 44.2 (34.1-44.9) % MCV 95.9 H (79.4-94.8) fl MCH 31.5 (25.6-32.2) pg MCHC 32.8 (32.2-35.5) g/dl RDW Std Deviation 45.9 (36.4-46.3) fL Plt Count 327 (182-369) K/mm3 MPV 10.2 (9.4-12.3) fl Neut % (Auto) 74.3 H (34.0-71.1) % Lymph % (Auto) 19.5 (19.3-51.7) % [place] % (Auto) 4.4 L (4.7-12.5) % Eos % (Auto) 1.4 (0.7-5.8) Baso % (Auto) 0.3 (0.1-1.2) % Neut # (Auto) 5.25 (1.56-6.13) K/mm3 Lymph # (Auto) 1.38 (1.18-3.74) K/mm3 [place] # (Auto) 0.31 (0.24-0.36) K/mm3 Eos # (Auto) 0.10 (0.04-0.36) K/mm3 Baso # (Auto) 0.02 (0.01-0.08) K/mm3 Sodium 142 (136-145) mEq/L Potassium 4.1 (3.5-5.1) mEq/L Chloride 103 (98-107) mEq/L Carbon Dioxide 27 (21-32) mEq/L Anion Gap 16.1 H (5-15) BUN 14 (7-18) mg/dL Creatinine 0.8 (0.55-1.02) mg/dL Est Cr Clr Drug Dosing 73.51 mL/min Estimated GFR (MDRD) > 60 (>60) mL/min BUN/Creatinine Ratio 17.5 (14-18) Glucose 87 (70-99) mg/dL Calcium 9.2 (8.5-10.1) mg/dL Magnesium 2.2 (1.8-2.4) mg/dL Total Bilirubin 0.3 (0.2-1.0) mg/dL AST 16 (15-37) U/L ALT 25 (14-59) U/L Alkaline Phosphatase 144 H (46-116) U/L C-Reactive Protein <0.2 (<1.0) mg/dL Total Protein 7.1 (6.4-8.2) g/dl Albumin 3.8 (3.4-5.0) g/dl Globulin 3.3 gm/dL Albumin/Globulin Ratio 1.2 (1-2) TSH 3rd Generation 0.625 (0.358-3.74) uIU/mL Urine Color (Yellow) Urine Appearance (Clear) Urine pH (5.0-8.0) Ur Specific [place] (1.005-1.030) Urine Protein (Negative) Urine Glucose (UA) (Negative) Urine Ketones (Negative) Urine Occult Blood (Negative) Urine Nitrite (Negative) Urine Bilirubin (Negative) Urine Urobilinogen (0.2-1.0) Ur Leukocyte Esterase (Negative) Urine RBC (0-5) /hpf Urine WBC (0-5) /hpf Ur Epithelial Cells (0-5) /hpf Urine Bacteria (FEW) /hpf Urine Mucus (FEW) /hpf Urine HCG, Qual (NEGATIVE) Salicylates 1.8 L (2.8-20) mg/dL Urine Opiates Screen (CXPFSF=047) Ur Buprenorphine Scrn (CUTOFF=10) Ur Oxycodone Screen (NRL8SI=454) Urine Methadone Screen (DXCYVB=330) Ur Propoxyphene Screen (QOVSMZ=286) Acetaminophen 0 L (10-30) ug/mL Ur Barbiturates Screen (MRJQVV=161) Ur Tricyclics Screen (OPALFQ=090) Ur Phencyclidine Scrn (CUTOFF=25) Ur Amphetamine Screen (EVGJAZ=701) U Methamphetamines Scrn (YXSOYG=879) U Benzodiazepines Scrn (LEDALV=324) U Cocaine Metab Screen (BNTPVZ=014) U Marijuana (THC) Screen (CUTOFF=50) Ethyl Alcohol 0.04 (0.00) gm% SARS-CoV-2 RNA (JORDY) (NEGATIVE) 12/28/21 12/28/21 12/28/21 Range/Units 11:37 14:15 14:15 WBC (3.98-10.04) K/mm3 RBC (3.98-5.22) M/mm3 Hgb (11.2-15.7) gm/dl Hct (34.1-44.9) % MCV (79.4-94.8) fl MCH (25.6-32.2) pg MCHC (32.2-35.5) g/dl RDW Std Deviation (36.4-46.3) fL Plt Count (182-369) K/mm3 MPV (9.4-12.3) fl Neut % (Auto) (34.0-71.1) % Lymph % (Auto) (19.3-51.7) % [place] % (Auto) (4.7-12.5) % Eos % (Auto) (0.7-5.8) Baso % (Auto) (0.1-1.2) % Neut # (Auto) (1.56-6.13) K/mm3 Lymph # (Auto) (1.18-3.74) K/mm3 [place] # (Auto) (0.24-0.36) K/mm3 Eos # (Auto) (0.04-0.36) K/mm3 Baso # (Auto) (0.01-0.08) K/mm3 Sodium (136-145) mEq/L Potassium (3.5-5.1) mEq/L Chloride (98-107) mEq/L Carbon Dioxide (21-32) mEq/L Anion Gap (5-15) BUN (7-18) mg/dL Creatinine (0.55-1.02) mg/dL Est Cr Clr Drug Dosing mL/min Estimated GFR (MDRD) (>60) mL/min BUN/Creatinine Ratio (14-18) Glucose (70-99) mg/dL Calcium (8.5-10.1) mg/dL Magnesium (1.8-2.4) mg/dL Total Bilirubin (0.2-1.0) mg/dL AST (15-37) U/L ALT (14-59) U/L Alkaline Phosphatase (46-116) U/L C-Reactive Protein (<1.0) mg/dL Total Protein (6.4-8.2) g/dl Albumin (3.4-5.0) g/dl Globulin gm/dL Albumin/Globulin Ratio (1-2) TSH 3rd Generation (0.358-3.74) uIU/mL Urine Color Dark yellow (Yellow) Urine Appearance Clear (Clear) Urine pH 5.5 (5.0-8.0) Ur Specific [place] > or = 1.030 (1.005-1.030) Urine Protein Trace H (Negative) Urine Glucose (UA) Negative (Negative) Urine Ketones Negative (Negative) Urine Occult Blood Negative (Negative) Urine Nitrite Negative (Negative) Urine Bilirubin Negative (Negative) Urine Urobilinogen 0.2 (0.2-1.0) Ur Leukocyte Esterase Negative (Negative) Urine RBC 10-20 H (0-5) /hpf Urine WBC 5-10 H (0-5) /hpf Ur Epithelial Cells 5-10 H (0-5) /hpf Urine Bacteria Moderate H (FEW) /hpf Urine Mucus Moderate H (FEW) /hpf Urine HCG, Qual Negative (NEGATIVE) Salicylates (2.8-20) mg/dL Urine Opiates Screen (SPOJFY=611) Ur Buprenorphine Scrn (CUTOFF=10) Ur Oxycodone Screen (IQG4LS=593) Urine Methadone Screen (AGIVSQ=478) Ur Propoxyphene Screen (UBCILK=326) Acetaminophen (10-30) ug/mL Ur Barbiturates Screen (STBMFB=667) Ur Tricyclics Screen (TAOQUN=512) Ur Phencyclidine Scrn (CUTOFF=25) Ur Amphetamine Screen (BDULZI=166) U Methamphetamines Scrn (WQXYVW=054) U Benzodiazepines Scrn (GUFRHR=508) U Cocaine Metab Screen (TDERRW=158) U Marijuana (THC) Screen (CUTOFF=50) Ethyl Alcohol (0.00) gm% SARS-CoV-2 RNA (JORDY) Negative (NEGATIVE) 03/25/21 Range/Units 14:15 WBC (3.98-10.04) K/mm3 RBC (3.98-5.22) M/mm3 Hgb (11.2-15.7) gm/dl Hct (34.1-44.9) % MCV (79.4-94.8) fl MCH (25.6-32.2) pg MCHC (32.2-35.5) g/dl RDW Std Deviation (36.4-46.3) fL Plt Count (182-369) K/mm3 MPV (9.4-12.3) fl Neut % (Auto) (34.0-71.1) % Lymph % (Auto) (19.3-51.7) % [place] % (Auto) (4.7-12.5) % Eos % (Auto) (0.7-5.8) Baso % (Auto) (0.1-1.2) % Neut # (Auto) (1.56-6.13) K/mm3 Lymph # (Auto) (1.18-3.74) K/mm3 [place] # (Auto) (0.24-0.36) K/mm3 Eos # (Auto) (0.04-0.36) K/mm3 Baso # (Auto) (0.01-0.08) K/mm3 Sodium (136-145) mEq/L Potassium (3.5-5.1) mEq/L Chloride (98-107) mEq/L Carbon Dioxide (21-32) mEq/L Anion Gap (5-15) BUN (7-18) mg/dL Creatinine (0.55-1.02) mg/dL Est Cr Clr Drug Dosing mL/min Estimated GFR (MDRD) (>60) mL/min BUN/Creatinine Ratio (14-18) Glucose (70-99) mg/dL Calcium (8.5-10.1) mg/dL Magnesium (1.8-2.4) mg/dL Total Bilirubin (0.2-1.0) mg/dL AST (15-37) U/L ALT (14-59) U/L Alkaline Phosphatase (46-116) U/L C-Reactive Protein (<1.0) mg/dL Total Protein (6.4-8.2) g/dl Albumin (3.4-5.0) g/dl Globulin gm/dL Albumin/Globulin Ratio (1-2) TSH 3rd Generation (0.358-3.74) uIU/mL Urine Color (Yellow) Urine Appearance (Clear) Urine pH (5.0-8.0) Ur Specific [place] (1.005-1.030) Urine Protein (Negative) Urine Glucose (UA) (Negative) Urine Ketones (Negative) Urine Occult Blood (Negative) Urine Nitrite (Negative) Urine Bilirubin (Negative) Urine Urobilinogen (0.2-1.0) Ur Leukocyte Esterase (Negative) Urine RBC (0-5) /hpf Urine WBC (0-5) /hpf Ur Epithelial Cells (0-5) /hpf Urine Bacteria (FEW) /hpf Urine Mucus (FEW) /hpf Urine HCG, Qual (NEGATIVE) Salicylates (2.8-20) mg/dL Urine Opiates Screen Negative (WUUFBV=582) Ur Buprenorphine Scrn Negative (CUTOFF=10) Ur Oxycodone Screen Negative (XBR8BG=596) Urine Methadone Screen Negative (UULUAU=480) Ur Propoxyphene Screen Negative (OQWSLC=192) Acetaminophen (10-30) ug/mL Ur Barbiturates Screen Negative (GFMVHC=714) Ur Tricyclics Screen Negative (BJTEQD=137) Ur Phencyclidine Scrn Negative (CUTOFF=25) Ur Amphetamine Screen Presumptive positive H (WGOZRH=552) U Methamphetamines Scrn Presumptive positive H (KDODRY=315) U Benzodiazepines Scrn Presumptive positive H (IXPPBJ=941) U Cocaine Metab Screen Negative (BLPSCK=856) U Marijuana (THC) Screen Negative (CUTOFF=50) Ethyl Alcohol (0.00) gm% SARS-CoV-2 RNA (JORDY) (NEGATIVE) Medications Generic Name Dose Route Start Last Admin Trade Name Freq PRN Reason Stop Dose Admin Sodium Chloride 10 ml 03/25/21 11:10 03/25/21 11:57 Sodium Chloride 0.9% 10 Ml Syringe FLUSH 10 ml ASDIRECTED PRN Administration Keep Vein Open Discontinued Medications Generic Name Dose Route Start Last Admin Trade Name Freq PRN Reason Stop Dose Admin Lorazepam 1 mg 03/25/21 11:45 03/25/21 11:58 Lorazepam 2 Mg/Ml Sdv IVPUSH 03/25/21 11:46 1 mg ONETIME ONE Administration Lorazepam 1 mg 03/25/21 14:20 03/25/21 14:32 Lorazepam 2 Mg/Ml Sdv IVPUSH 03/25/21 14:21 1 mg ONETIME ONE Administration Metoclopramide HCl 7.5 mg 03/25/21 11:45 03/25/21 11:58 Metoclopramide 10 Mg/2 Ml Sdv IVPUSH 03/25/21 11:46 7.5 mg ONETIME ONE Administration Re-Assessment/Re-Exam: Patient has requested to go to medical detox at [facility] in my not. I have phoned to them and they do have a medical detox bed available. I spoke to the ER physician, Dr. Velázquez, and he has accepted the patient in transfer. Patient will be transferred by [facility] ambulance. Departure - Departure Time of Disposition: 15:16 Disposition: DC/Tfer to Acute Hospital 02 Condition: Good Clinical Impression: Alcohol abuse - Discharge Information Referrals: PCP,None [Primary Care Provider] - Forms: ED Department Discharge Sepsis Event Note (ED) - Evaluation Sepsis Screening Result: No Definite Risk - Focused Exam Vital Signs: Vital Signs Temp Pulse Resp BP Pulse Ox 03/25/21 10:50 97.6 F 77 20 120/87 98 - My Orders Last 24 Hours: My Active Orders 03/25/21 11:10 Sodium Chloride 0.9% [Saline Flush] 10 ml FLUSH ASDIRECTED PRN Saline Lock Insert [OM.PC] Stat - Assessment/Plan Last 24 Hours: My Active Orders 03/25/21 11:10 Sodium Chloride 0.9% [Saline Flush] 10 ml FLUSH ASDIRECTED PRN Saline Lock Insert [OM.PC] Stat
[2021-03-25 12:28] LABS: ACETAMINOPHEN 0 ug/mL (10-30)
--- NOTE | 2021-03-25 20:09 | PCM.EKG ---
#1 Interpretation EKG Date: 03/25/21 Time: 11:11 Rhythm: NSR Rate (Beats/Min): 73 [place]: Normal P-Wave: Present QRS: Normal ST-T: Normal QT: Normal EKG Interpretation Comments: Per Dr. Jonas interpretation: Rhythm at 73 bpm; baseline wander in leads II, III, aVF, V1 and V3
== END 2021-03-25 15:50 ==
LOC: JD.ED 10:46
DX: F10.139 Alcohol abuse with withdrawal, unspecified (principal); K21.9 Gastro-esophageal reflux disease without esophagitis; Z20.822 Contact with and (suspected) exposure to COVID-19; Z88.8 Allergy status to other drugs, medicaments and biological substances; Z88.6 Allergy status to analgesic agent; Z88.0 Allergy status to penicillin; Z88.2 Allergy status to sulfonamides; Z79.899 Other long term (current) drug therapy
CPT/HCPCS: 36415; 80053; 80143; 80179; 80306; 80307; 81001; 81025; 83735; 84443; 85025; 86140; 87635; 93005; 96374; 96375; 96376; 99285; J2060; J2765; U0002

== ENCOUNTER 2021-03-30 14:35 | Emergency (ER) | payer MEDICAID ==
[2021-03-30] MEDS ORDERED: Sodium Chloride 0.9% 10 ML Syringe FLUSH PRN (14:49)
[2021-03-30] MEDS ORDERED: Metoclopramide 10 MG/2 ML SDV IVPUSH ONE (15:09)
[2021-03-30] MEDS ORDERED: Sodium Chloride 0.9% 1,000 ML IV ONE (15:09)
[2021-03-30] MEDS ORDERED: LORazepam 2 MG/ML SDV IVPUSH ONE (15:09)
[2021-03-30] MEDS ORDERED: Acetaminophen 325 MG Tab PO ONE (15:11)
--- NOTE | 2021-03-30 15:23 | EDM.PDOC ---
ED HPI GENERAL MEDICAL PROBLEM - General Chief Complaint: Chest Pain Stated Complaint: GURPREET AMB Time Seen by Provider: 03/30/21 14:42 Source of Information: Reports: Patient, Old Records History Limitations: Reports: No Limitations - History of Present Illness INITIAL COMMENTS - FREE TEXT/NARRATIVE: 55-year-old female presents the emergency department today with reported s yncopal episode that occurred just prior to the arrival. Patient arrived by [facility]. Patient is well-known to this emergency department due to history of alcohol intoxication and alcohol abuse. Was recently seen and evaluated by myself on 03/25/2021 and was sent for medical detox to [facility] in [place]. Patient states she did go through medical detox and returned home this morning. Patient states she has had nothing to drink and has eaten a few chips today. She states she returned home this morning and then went out and about her friend of birthday cake and ran some errands, she then returned home and began to feel lonely so she took 2 shots of vodka. She states immediately after taking the shots of vodka she did have 1 episode of vomiting and states that she then had a syncopal episode. Of note patient states that while she was at detox or the course the past week, when evening she did fall out of bed and hit her knee and right rib area. She states she has had chest discomfort and tenderness since the event. She states she reported the chest discomfort while at [place], and they told her that the chest discomfort was due to anxiety while detoxing. Patient denies any recent fever, chills, diarrhea, abdominal pain, cough, shortness of breath or headache or generalized body aches. - Related Data Allergies Allergy/AdvReac Type Severity Reaction Status Date / Time sumatriptan [From Imitrex] Allergy Severe Anaphylactic Verified 03/30/21 14:48 Shock ibuprofen Allergy Intermediate Rash Verified 03/30/21 14:48 ketorolac [From Toradol] Allergy Intermediate Rash Verified 03/30/21 14:48 Penicillins Allergy Intermediate Rash Verified 03/30/21 14:48 Sulfa (Sulfonamide Allergy Intermediate Rash Verified 03/30/21 14:48 Antibiotics) tramadol Allergy Intermediate Rash Verified 03/30/21 14:48 diphenhydramine AdvReac Mild Anxiety Verified 03/30/21 14:48 [From Benadryl] Home Meds: Home Meds Omeprazole Magnesium [Prilosec Otc] 20 mg PO DAILY 12/01/17 [History] Levothyroxine [Synthroid] 50 mcg PO ACBREAKFAST tablet 12/21/17 [Rx] Venlafaxine [Effexor XR] 150 mg PO DAILY 08/12/19 [History] QUEtiapine [SEROquel] 50 mg PO BEDTIME 08/15/20 [History] busPIRone [Buspar] 50 mg PO DAILY 12/15/20 [History] Past Medical History HEENT History: Reports: Allergic Rhinitis, Impaired Vision Other HEENT History: wears corrective lenses, dental infection Cardiovascular History: Reports: High Cholesterol Respiratory History: Reports: Sleep Apnea, Other (See Below) Other Respiratory History: left lung nodule, restrictive lung disease, cough, shortness of breath, pleural thickening, pleuritic chest pain Gastrointestinal History: Reports: Gastritis, GERD, Other (See Below) Other Gastrointestinal History: esophageal stricture, abdominal pain lower, elevated liver enzymes Genitourinary History: Reports: Urinary Incontinence, UTI, Recurrent, Other (See Below) Other Genitourinary History: implantable device interstim RLQ- removed 08/16/17; interstim neurotransmitter placed jan 2018-left buttocks. [employer] History: Reports: Musculoskeletal History: Reports: Back Pain, Chronic, Neck Pain, Chronic, Osteoarthritis Other Musculoskeletal History: neck surgery Neurological History: Reports: Migraines, Seizure, Other (See Below) Other Neuro History: patient reports "nervous tics", nerve pain, dizziness Psychiatric History: Reports: Addiction, Anxiety, Depression, Suicide Attempt, Suicidal Ideation Other Psychiatric History: drug overdose, personality disorder, alcohol withdrawal Endocrine/Metabolic History: Reports: Hypothyroidism, Obesity/BMI 30+ Other Endocrine/Metabolic History: reports hypothyroidism 15 years ago that corrected itself Hematologic History: Reports: None Immunologic History: Reports: None Oncologic (Cancer) History: Reports: None Dermatologic History: Reports: Other (See Below) Other Dermatologic History: skin lesion - Infectious Disease History Infectious Disease History: Reports: Chicken Pox - Past Surgical History HEENT Surgical History: Reports: None Cardiovascular Surgical History: Reports: None Respiratory Surgical History: Reports: Lung Biopsies Other Respiratory Surgeries/Procedures: 2014 GI Surgical History: Reports: Appendectomy, Cholecystectomy, Colonoscopy, EGD Female Surgical History: Reports: Hysterectomy, Salpingo-Oophorectomy, Tubal Ligation, Other (See Below) Other Female Surgeries/Procedures: bladder sling 09/2017 Endocrine Surgical History: Reports: None Neurological Surgical History: Reports: C-Spine, Other (See Below) Other Neurological Surgeries/Procedures: Disc removed from her neck, titanium plate inserted in 2019. Musculoskeletal Surgical History: Reports: None Oncologic Surgical History: Reports: None Social & Family History - Family History Family Medical History: No Pertinent Family History Cardiac: Reports: Bypass, CAD, Heart Failure - Tobacco Use Tobacco Use Status *Q: Current Status Unknown - Caffeine Use Caffeine Use: Reports: None Caffeine Use Comment: seldom - Living Situation & Occupation Living situation: Reports: , Other (with roomate) Occupation: Unemployed ED ROS GENERAL - Review of Systems Review Of Systems: Comprehensive ROS is negative, except as noted in HPI. - Physical Exam Exam: See Below Exam Limited By: No Limitations General Appearance: Alert, WD/WN, No Apparent Distress Eye Exam: Bilateral Eye: EOMI, PERRL Ears: Normal External Exam, Hearing Grossly Normal Nose: Normal Inspection Throat/Mouth: Normal Inspection, Normal Lips, Normal Voice, No Airway Compromise, Other (Patient's tongue is dry) Head Exam: Atraumatic, Normocephalic Neck: Normal Inspection, Supple Respiratory/Chest: No Respiratory Distress, Lungs Clear, Normal Breath Sounds, No Accessory Muscle Use. No: Chest Non-Tender (Left chest wall tenderness with palpation; right lateral rib discomfort with palpation) Cardiovascular: Normal Peripheral Pulses, Regular Rate, Rhythm, No Edema, No Murmur GI/Abdominal: Normal Bowel Sounds, Soft, Non-Tender, No Distention (Female) Exam: Deferred Rectal (Female) Exam: Deferred Neuro Exam (Abbreviated): Alert, Oriented, Normal Cognition Back Exam: Normal Inspection Extremities: Normal Inspection Psychiatric: Tearful Skin Exam: Warm, Dry, Intact, Normal Color, No Rash #1 Interpretation EKG Date: 03/30/21 Time: 14:46 Rhythm: NSR Rate (Beats/Min): 82 Shafer: Normal P-Wave: Present QRS: Normal ST-T: Normal QT: Normal EKG Interpretation Comments: Per Dr. Shell interpretation: Sinus rhythm at 82 bpm Course - Vital Signs Text/Narrative:: At the time of my exam, the patient is difficult to arouse. I did have to sternal rub her and then she aroused and was able to carry on a conversation with me. She is oriented x3. Pupils are dilated at 6 mm and reacted to light. She does complain of left chest discomfort. Worse with palpation. Also complains of right rib discomfort which is worse with palpation and taking a deep breath. Also complaining of a headache at the time of my exam. Neuro exam is unremarkable. Remainder of physical exam is unremarkable. Patient's blood pressure is in the 80s systolically at the time of exam. She is likely dehydrated due to not eating or drinking anything today. Will obtain a full cardiac work-up including labs, EKG and a chest x-ray. We will have nursing staff start an IV. Patient will be given a liter of normal saline wide open due to the fact that she is likely dehydrated. Will medicate her with Reglan, Ativan and Tylenol. Last Recorded V/S: Last Vital Signs Temp 98.0 F 03/30/21 16:00 Pulse 91 03/30/21 16:00 Resp 18 03/30/21 16:00 BP 94/61 03/30/21 16:00 Pulse Ox 95 03/30/21 16:00 - Orders/Labs/Meds Orders: Active Orders 24 hr Category Date Time Status Chest 1V Frontal [CR] Stat Exams 03/30/21 14:49 Taken Sodium Chloride 0.9% [Saline Flush] Med 03/30/21 14:49 Active 10 ml FLUSH ASDIRECTED PRN Saline Lock Insert [OM.PC] Stat Oth 03/30/21 14:49 Ordered Medication Orders Sodium Chloride (Sodium Chloride 0.9% 10 Ml Syringe) 10 ml FLUSH ASDIRECTED PRN PRN Reason: Keep Vein Open Last Admin: 03/30/21 14:40 Dose: 10 ml Documented by: BRANDEN Labs: Laboratory Tests 03/30/21 03/30/21 03/30/21 Range/Units 14:35 14:35 14:35 WBC 6.24 (3.98-10.04) K/mm3 RBC 4.43 (3.98-5.22) M/mm3 Hgb 13.8 (11.2-15.7) gm/dl Hct 43.3 (34.1-44.9) % MCV 97.7 H (79.4-94.8) fl MCH 31.2 (25.6-32.2) pg MCHC 31.9 L (32.2-35.5) g/dl RDW Std Deviation 46.2 (36.4-46.3) fL Plt Count 278 (182-369) K/mm3 MPV 11.0 (9.4-12.3) fl Neut % (Auto) 62.4 (34.0-71.1) % Lymph % (Auto) 25.2 (19.3-51.7) % [place] % (Auto) 6.9 (4.7-12.5) % Eos % (Auto) 5.0 (0.7-5.8) Baso % (Auto) 0.3 (0.1-1.2) % Neut # (Auto) 3.90 (1.56-6.13) K/mm3 Lymph # (Auto) 1.57 (1.18-3.74) K/mm3 [place] # (Auto) 0.43 H (0.24-0.36) K/mm3 Eos # (Auto) 0.31 (0.04-0.36) K/mm3 Baso # (Auto) 0.02 (0.01-0.08) K/mm3 D-Dimer, Quantitative (0.19-0.50) mg/L Sodium 143 (136-145) mEq/L Potassium 3.5 (3.5-5.1) mEq/L Chloride 106 (98-107) mEq/L Carbon Dioxide 23 (21-32) mEq/L Anion Gap 17.5 H (5-15) BUN 15 (7-18) mg/dL Creatinine 0.6 (0.55-1.02) mg/dL Est Cr Clr Drug Dosing TNP Estimated GFR (MDRD) > 60 (>60) mL/min BUN/Creatinine Ratio 25.0 H (14-18) Glucose 115 H (70-99) mg/dL Calcium 9.0 (8.5-10.1) mg/dL Magnesium 2.0 (1.8-2.4) mg/dL Total Bilirubin 0.2 (0.2-1.0) mg/dL AST 25 (15-37) U/L ALT 31 (14-59) U/L Alkaline Phosphatase 115 (46-116) U/L Troponin I < 0.017 (0.00-0.056) ng/mL C-Reactive Protein <0.2 (<1.0) mg/dL Total Protein 7.1 (6.4-8.2) g/dl Albumin 3.6 (3.4-5.0) g/dl Globulin 3.5 gm/dL Albumin/Globulin Ratio 1.0 (1-2) TSH 3rd Generation 0.784 (0.358-3.74) uIU/mL Salicylates 1.8 L (2.8-20) mg/dL Urine Opiates Screen (QDHEJS=061) Ur Buprenorphine Scrn (CUTOFF=10) Ur Oxycodone Screen (RSM1XC=587) Urine Methadone Screen (QSRNLO=330) Ur Propoxyphene Screen (LYLRAH=481) Acetaminophen 0 L (10-30) ug/mL Ur Barbiturates Screen (VHXDLZ=353) Ur Tricyclics Screen (CXFYAT=852) Ur Phencyclidine Scrn (CUTOFF=25) Ur Amphetamine Screen (ZJQSSZ=189) U Methamphetamines Scrn (BVITIC=940) U Benzodiazepines Scrn (RSHUDG=546) U Cocaine Metab Screen (GEHPDI=575) U Marijuana (THC) Screen (CUTOFF=50) Ethyl Alcohol 0.14 (0.00) gm% Influenza Type A RNA (NEGATIVE) Influenza Type B RNA (NEGATIVE) SARS-CoV-2 RNA (JORDY) (NEGATIVE) 03/30/21 03/30/21 03/30/21 Range/Units 14:35 15:25 15:30 WBC (3.98-10.04) K/mm3 RBC (3.98-5.22) M/mm3 Hgb (11.2-15.7) gm/dl Hct (34.1-44.9) % MCV (79.4-94.8) fl MCH (25.6-32.2) pg MCHC (32.2-35.5) g/dl RDW Std Deviation (36.4-46.3) fL Plt Count (182-369) K/mm3 MPV (9.4-12.3) fl Neut % (Auto) (34.0-71.1) % Lymph % (Auto) (19.3-51.7) % [place] % (Auto) (4.7-12.5) % Eos % (Auto) (0.7-5.8) Baso % (Auto) (0.1-1.2) % Neut # (Auto) (1.56-6.13) K/mm3 Lymph # (Auto) (1.18-3.74) K/mm3 [place] # (Auto) (0.24-0.36) K/mm3 Eos # (Auto) (0.04-0.36) K/mm3 Baso # (Auto) (0.01-0.08) K/mm3 D-Dimer, Quantitative < 0.19 L (0.19-0.50) mg/L Sodium (136-145) mEq/L Potassium (3.5-5.1) mEq/L Chloride (98-107) mEq/L Carbon Dioxide (21-32) mEq/L Anion Gap (5-15) BUN (7-18) mg/dL Creatinine (0.55-1.02) mg/dL Est Cr Clr Drug Dosing Estimated GFR (MDRD) (>60) mL/min BUN/Creatinine Ratio (14-18) Glucose (70-99) mg/dL Calcium (8.5-10.1) mg/dL Magnesium (1.8-2.4) mg/dL Total Bilirubin (0.2-1.0) mg/dL AST (15-37) U/L ALT (14-59) U/L Alkaline Phosphatase (46-116) U/L Troponin I (0.00-0.056) ng/mL C-Reactive Protein (<1.0) mg/dL Total Protein (6.4-8.2) g/dl Albumin (3.4-5.0) g/dl Globulin gm/dL Albumin/Globulin Ratio (1-2) TSH 3rd Generation (0.358-3.74) uIU/mL Salicylates (2.8-20) mg/dL Urine Opiates Screen Negative (UZKKVE=401) Ur Buprenorphine Scrn Negative (CUTOFF=10) Ur Oxycodone Screen Negative (XUA1SW=731) Urine Methadone Screen Negative (FCLEZO=191) Ur Propoxyphene Screen Negative (FOFPHE=965) Acetaminophen (10-30) ug/mL Ur Barbiturates Screen Negative (FTOXST=785) Ur Tricyclics Screen Negative (YTJDMB=547) Ur Phencyclidine Scrn Negative (CUTOFF=25) Ur Amphetamine Screen Negative (JFMXCV=227) U Methamphetamines Scrn Negative (UUPJHE=177) U Benzodiazepines Scrn Presumptive positive H (SWFIMJ=275) U Cocaine Metab Screen Negative (QCGSWA=104) U Marijuana (THC) Screen Negative (CUTOFF=50) Ethyl Alcohol (0.00) gm% Influenza Type A RNA Negative (NEGATIVE) Influenza Type B RNA Negative (NEGATIVE) SARS-CoV-2 RNA (JORDY) Negative (NEGATIVE) Meds: Medications Generic Name Dose Route Start Last Admin Trade Name Freq PRN Reason Stop Dose Admin Sodium Chloride 10 ml 03/30/21 14:49 03/30/21 14:40 Sodium Chloride 0.9% 10 Ml Syringe FLUSH 10 ml ASDIRECTED PRN Administration Keep Vein Open Discontinued Medications Generic Name Dose Route Start Last Admin Trade Name Freq PRN Reason Stop Dose Admin Acetaminophen 975 mg 03/30/21 15:11 Acetaminophen 325 Mg Tab PO 03/30/21 15:12 NOW ONE Sodium Chloride 1,000 mls @ 999 mls/hr 03/30/21 15:09 03/30/21 15:48 Normal Saline IV 03/30/21 16:09 999 mls/hr ONETIME ONE Administration Lorazepam 0.5 mg 03/30/21 15:09 03/30/21 15:44 Lorazepam 2 Mg/Ml Sdv IVPUSH 03/30/21 15:10 0.5 mg ONETIME ONE Administration Metoclopramide HCl 5 mg 03/30/21 15:09 03/30/21 15:46 Metoclopramide 10 Mg/2 Ml Sdv IVPUSH 03/30/21 15:10 5 mg ONETIME ONE Administration - Re-Assessments/Exams Free Text/Narrative Re-Assessment/Exam: 03/30/21 16:01 Nursing staff notifies me that the patient is demanding to go home. 03/30/21 16:02 Hematology is essentially unremarkable Coagulation reveals a D-dimer of less than 0.19 Chemistry reveals an anion gap of 17.5, BUN 15, creatinine 0.6, glucose 115, magnesium 2.0, troponin less than 0.017, C-reactive protein less than 0.2, TSH 0.784 Urine drug screen is presumptive positive for benzodiazepines however the patient did receive a dose of Ativan, acetaminophen level is 0, ethyl alcohol level 0.14 I went in to discuss the results with the patient and she has climbed out of bed and pulled her IV out. There is blood noted all over the floor. Patient is demanding that she go home. I told her at this time I would like her to continue receiving her IV fluids and she is refusing. I told her she will need to sign AMA paperwork. 03/30/21 17:02 Patient did try to ambulate out of the unit and did become dizzy likely due to hypotension caused by dehydration. Nursing staff has convinced her to return to her room and continue receiving IV fluids. 03/30/21 17:03 Radiologist impression portable chest x-ray: No acute findings. 03/30/21 17:40 Patient has received 1 L of normal saline. Blood pressure is now 103/65. Patient ambulated to the bathroom without difficulty and denies any complaints of feeling dizzy or weak. She states she is ready to be discharged home. Departure - Departure Time of Disposition: 17:41 Disposition: Home, Self-Care 01 Condition: Good Clinical Impression: Atypical chest pain, Alcohol abuse Hypotension Qualifiers: Hypotension type: unspecified hypotension type Qualified Code(s): I95.9 - Hypotension, unspecified - Discharge Information Instructions: Nonspecific Chest Pain, Adult, [id number], Hypotension, [id number], Alcohol Abuse and Dependence Information, Adult Referrals: PCP,None [Primary Care Provider] - Forms: ED Department Discharge Additional Instructions: You were seen in the emergency department today after having a fainting episode at home with associated chest discomfort. Upon evaluation, you do appear to be significantly dehydrated. As you stated you have not eaten much today and have not drink any fluids other than 2 shots of vodka. You were given a liter of IV fluids, nausea medication and Ativan while in the emergency department. As discussed you really need to stop drinking and find a good support system. Reach out to [facility] [place] and find local groups in town to give you companionship. Be sure you are drinking plenty of water and eating nutritious foods. Take Tylenol for your chest discomfort as there are no issues found on today's exam with your heart. This is likely due to muscular discomfort. Should your condition worsen or change, do not hesitate returning to the emergency department. Sepsis Event Note (ED) - Evaluation Sepsis Screening Result: No Definite Risk - Focused Exam Vital Signs: Vital Signs Temp Pulse Resp BP Pulse Ox 03/30/21 16:00 98.0 F 91 18 94/61 95 03/30/21 14:44 97.5 F 80 18 95/52 L 88 L - My Orders Last 24 Hours: My Active Orders 03/30/21 14:49 Chest 1V Frontal [CR] Stat Sodium Chloride 0.9% [Saline Flush] 10 ml FLUSH ASDIRECTED PRN Saline Lock Insert [OM.PC] Stat - Assessment/Plan Last 24 Hours: My Active Orders 03/30/21 14:49 Chest 1V Frontal [CR] Stat Sodium Chloride 0.9% [Saline Flush] 10 ml FLUSH ASDIRECTED PRN Saline Lock Insert [OM.PC] Stat
[2021-03-30 15:39] LABS: ACETAMINOPHEN 0 ug/mL (10-30)
[2021-03-30 16:08] LABS: CORONAVIRUS COVID-19 NAA NEGATIVE (NEGATIVE)
[2021-03-30 17:45] VITALS: BP 103/83; PULSE 90
--- NOTE | 2021-03-31 14:34 | CR ---
EXAM: XR CHEST 1 VIEW LOCATION: [facility] DATE/TIME: 03/30/2021 3:13 PM INDICATION: Dyspnea COMPARISON: None. IMPRESSION: Negative chest. SIGNED BY: Jason Montes De Oca MD 03/31/2021 12:51 PM [facility]WORK[facility]
== END 2021-03-30 17:55 | disposition home or self-care (01) ==
LOC: JD.ED 14:35
DX: I95.9 Hypotension, unspecified (principal); F10.10 Alcohol abuse, uncomplicated; K21.9 Gastro-esophageal reflux disease without esophagitis; E03.9 Hypothyroidism, unspecified; E66.9 Obesity, unspecified; Z20.822 Contact with and (suspected) exposure to COVID-19; Z88.8 Allergy status to other drugs, medicaments and biological substances; Z88.6 Allergy status to analgesic agent; Z88.0 Allergy status to penicillin; Z88.2 Allergy status to sulfonamides; Z88.5 Allergy status to narcotic agent; Z79.899 Other long term (current) drug therapy
CPT/HCPCS: 0240U; 36415; 71045; 80053; 80143; 80179; 80306; 80307; 83735; 84443; 84484; 85025; 85379; 86140; 93005; 96374; 96375; 99284; J2060; J2765; J7030

== ENCOUNTER 2021-03-31 12:22 | Emergency (ER) | payer MEDICAID ==
[2021-03-31] MEDS ORDERED: Sodium Chloride 0.9% 10 ML Syringe FLUSH PRN (12:38)
[2021-03-31] MEDS ORDERED: Aspirin 81 MG Tab.Chew PO ONE (12:38)
[2021-03-31 12:42] VITALS: BP 102/59; PULSE 66
[2021-03-31] MEDS ORDERED: Famotidine 20 MG/2 ML SDV IVPUSH ONE (12:44)
[2021-03-31] MEDS ORDERED: Sodium Chloride 0.9% 1,000 ML IV SCH (12:45)
--- NOTE | 2021-03-31 13:22 | CR ---
EXAM: XR CHEST 1 VIEW LOCATION: [facility] DATE/TIME: 03/31/2021 12:51 PM INDICATION: Chest pain COMPARISON: 03/30/21 XR IMPRESSION: Mild left basilar atelectasis versus scarring. The lungs are otherwise clear and there are no pleural effusions. Normal heart size. No vascular congestion or interstitial edema. SIGNED BY: Elliot Bell MD 03/31/2021 2:11 PM [facility]
--- NOTE | 2021-03-31 14:51 | EDM.PDOC ---
ED HPI GENERAL MEDICAL PROBLEM - General Chief Complaint: Chest Pain Stated Complaint: [facility] Time Seen by Provider: 03/31/21 12:29 Source of Information: Reports: Patient, EMS History Limitations: Reports: No Limitations - History of Present Illness INITIAL COMMENTS - FREE TEXT/NARRATIVE: The patient presents by [facility] for chest pain and shortness of breath. This started today. She was seen here yesterday for alcohol intoxication. She has a long history of alcohol abuse. She was sent to [facility] in the past few months for detox. She went right back to drinking when she got back. She has no fever, chills, cough, nausea or vomiting. She does have some right sided abdominal pain. Onset: Gradual Duration: Hour(s): Location: Reports: Chest, Abdomen Quality: Reports: Sharp Severity: Moderate Improves with: Reports: None Worsens with: Reports: None Associated Symptoms: Reports: Shortness of Breath. Denies: Chest Pain, Cough, Headaches Chest Pain Score (Numeric/FACES): 8 - Related Data Allergies Allergy/AdvReac Type Severity Reaction Status Date / Time sumatriptan [From Imitrex] Allergy Severe Anaphylactic Verified 03/31/21 12:35 Shock ibuprofen Allergy Intermediate Rash Verified 03/31/21 12:35 ketorolac [From Toradol] Allergy Intermediate Rash Verified 03/31/21 12:35 Penicillins Allergy Intermediate Rash Verified 03/31/21 12:35 Sulfa (Sulfonamide Allergy Intermediate Rash Verified 03/31/21 12:35 Antibiotics) tramadol Allergy Intermediate Rash Verified 03/31/21 12:35 diphenhydramine AdvReac Mild Anxiety Verified 03/31/21 12:35 [From Benadryl] Home Meds: Home Meds Omeprazole Magnesium [Prilosec Otc] 20 mg PO DAILY 12/01/17 [History] Levothyroxine [Synthroid] 50 mcg PO ACBREAKFAST tablet 12/21/17 [Rx] Venlafaxine [Effexor XR] 150 mg PO DAILY 08/12/19 [History] QUEtiapine [SEROquel] 50 mg PO BEDTIME 08/15/20 [History] busPIRone [Buspar] 50 mg PO DAILY 12/15/20 [History] Past Medical History HEENT History: Reports: Allergic Rhinitis, Impaired Vision Other HEENT History: wears corrective lenses, dental infection Cardiovascular History: Reports: High Cholesterol Respiratory History: Reports: Sleep Apnea, Other (See Below) Other Respiratory History: left lung nodule, restrictive lung disease, cough, shortness of breath, pleural thickening, pleuritic chest pain Gastrointestinal History: Reports: Gastritis, GERD, Other (See Below) Other Gastrointestinal History: esophageal stricture, abdominal pain lower, elevated liver enzymes Genitourinary History: Reports: Urinary Incontinence, UTI, Recurrent, Other (See Below) Other Genitourinary History: implantable device interstim RLQ- removed 08/16/17; interstim neurotransmitter placed jan 2018-left buttocks. 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: Musculoskeletal History: Reports: Back Pain, Chronic, Neck Pain, Chronic, Osteoarthritis Other Musculoskeletal History: neck surgery Neurological History: Reports: Migraines, Seizure, Other (See Below) Other Neuro History: patient reports "nervous tics", nerve pain, dizziness Psychiatric History: Reports: Addiction, Anxiety, Depression, Suicide Attempt, Suicidal Ideation Other Psychiatric History: drug overdose, personality disorder, alcohol withdrawal Endocrine/Metabolic History: Reports: Hypothyroidism, Obesity/BMI 30+ Other Endocrine/Metabolic History: reports hypothyroidism 15 years ago that corrected itself Hematologic History: Reports: None Immunologic History: Reports: None Oncologic (Cancer) History: Reports: None Dermatologic History: Reports: Other (See Below) Other Dermatologic History: skin lesion - Infectious Disease History Infectious Disease History: Reports: Chicken Pox - Past Surgical History Respiratory Surgical History: Reports: Lung Biopsies Other Respiratory Surgeries/Procedures: 2014 GI Surgical History: Reports: Appendectomy, Cholecystectomy, Colonoscopy, EGD Female Surgical History: Reports: Hysterectomy, Salpingo-Oophorectomy, Tubal Ligation, Other (See Below) Other Female Surgeries/Procedures: bladder sling 09/2017 Neurological Surgical History: Reports: C-Spine, Other (See Below) Other Neurological Surgeries/Procedures: Disc removed from her neck, titanium plate inserted in 2019. Musculoskeletal Surgical History: Reports: None Social & Family History - Family History Family Medical History: No Pertinent Family History Cardiac: Reports: Bypass, CAD, Heart Failure - Tobacco Use Tobacco Use Status *Q: Never Tobacco User - Caffeine Use Caffeine Use: Reports: None Caffeine Use Comment: seldom - Recreational Drug Use Recreational Drug Use: No - Living Situation & Occupation Living situation: Reports: , Other (with roomate) Occupation: Unemployed ED ROS GENERAL - Review of Systems Review Of Systems: See Below Constitutional: Reports: No Symptoms HEENT: Reports: No Symptoms Respiratory: Reports: Shortness of Breath Cardiovascular: Reports: Chest Pain Endocrine: Reports: No Symptoms GI/Abdominal: Reports: No Symptoms : Reports: No Symptoms Musculoskeletal: Reports: No Symptoms Skin: Reports: No Symptoms ED EXAM, GENERAL - Physical Exam Exam: See Below Exam Limited By: No Limitations General Appearance: Alert, No Apparent Distress Ears: Normal External Exam Nose: Normal Inspection Head: Atraumatic, Normocephalic Neck: Normal Inspection Respiratory/Chest: No Respiratory Distress, Lungs Clear, Normal Breath Sounds Cardiovascular: Regular Rate, Rhythm, No Edema, No Murmur, No Rub GI/Abdominal: Soft, Non-Tender, No Organomegaly Back Exam: Normal Inspection Extremities: Normal Inspection Neurological: Alert, Oriented, No Motor/Sensory Deficits #1 Interpretation EKG Date: 03/31/21 Time: 12:25 Rhythm: NSR Rate (Beats/Min): 66 [place]: Normal P-Wave: Present QRS: Normal ST-T: Normal QT: Normal Course - Vital Signs Last Recorded V/S: Last Vital Signs Temp 96.8 F L 03/31/21 12:22 Pulse 66 03/31/21 12:22 Resp 18 03/31/21 12:22 BP 102/59 L 03/31/21 12:22 Pulse Ox 91 L 03/31/21 12:22 - Orders/Labs/Meds Orders: Active Orders 24 hr Category Date Time Status Cardiac Monitoring [RC] . DIRECTED Care 03/31/21 12:38 Active Peripheral IV Care [RC] . DIRECTED Care 03/31/21 12:39 Active Sodium Chloride 0.9% [Normal Saline] 1,000 ml Med 03/31/21 12:45 Active IV .BOLUS Sodium Chloride 0.9% [Saline Flush] Med 03/31/21 12:38 Active 10 ml FLUSH ASDIRECTED PRN Peripheral IV Insertion Adult [OM.PC] Stat Oth 03/31/21 12:38 Ordered Medication Orders Sodium Chloride (Normal Saline) 1,000 mls @ 1,000 mls/hr IV .BOLUS [facility] Last Admin: 03/31/21 12:49 Dose: 1,000 mls/hr Documented by: SCHKAT Sodium Chloride (Sodium Chloride 0.9% 10 Ml Syringe) 10 ml FLUSH ASDIRECTED PRN PRN Reason: Keep Vein Open Last Admin: 03/31/21 12:50 Dose: 10 ml Documented by: CODEY Labs: Laboratory Tests 03/31/21 03/31/21 Range/Units 12:30 12:30 WBC 5.66 (3.98-10.04) K/mm3 RBC 4.40 (3.98-5.22) M/mm3 Hgb 13.8 (11.2-15.7) gm/dl Hct 42.9 (34.1-44.9) % MCV 97.5 H (79.4-94.8) fl MCH 31.4 (25.6-32.2) pg MCHC 32.2 (32.2-35.5) g/dl RDW Std Deviation 46.1 (36.4-46.3) fL Plt Count 303 (182-369) K/mm3 MPV 10.8 (9.4-12.3) fl Neut % (Auto) 48.5 (34.0-71.1) % Lymph % (Auto) 38.3 (19.3-51.7) % [place] % (Auto) 6.5 (4.7-12.5) % Eos % (Auto) 6.0 H (0.7-5.8) Baso % (Auto) 0.5 (0.1-1.2) % Neut # (Auto) 2.74 (1.56-6.13) K/mm3 Lymph # (Auto) 2.17 (1.18-3.74) K/mm3 [place] # (Auto) 0.37 H (0.24-0.36) K/mm3 Eos # (Auto) 0.34 (0.04-0.36) K/mm3 Baso # (Auto) 0.03 (0.01-0.08) K/mm3 Sodium 140 (136-145) mEq/L Potassium 3.5 (3.5-5.1) mEq/L Chloride 106 (98-107) mEq/L Carbon Dioxide 25 (21-32) mEq/L Anion Gap 12.5 (5-15) BUN 12 (7-18) mg/dL Creatinine 0.7 (0.55-1.02) mg/dL Est Cr Clr Drug Dosing 84.01 mL/min Estimated GFR (MDRD) > 60 (>60) mL/min BUN/Creatinine Ratio 17.1 (14-18) Glucose 100 H (70-99) mg/dL Calcium 9.0 (8.5-10.1) mg/dL Total Bilirubin 0.1 L (0.2-1.0) mg/dL AST 28 (15-37) U/L ALT 36 (14-59) U/L Alkaline Phosphatase 116 (46-116) U/L Troponin I < 0.017 (0.00-0.056) ng/mL Total Protein 7.0 (6.4-8.2) g/dl Albumin 3.6 (3.4-5.0) g/dl Globulin 3.4 gm/dL Albumin/Globulin Ratio 1.1 (1-2) Ethyl Alcohol 0.12 (0.00) gm% Meds: Medications Generic Name Dose Route Start Last Admin Trade Name Freq PRN Reason Stop Dose Admin Sodium Chloride 1,000 mls @ 1,000 mls/hr 03/31/21 12:45 03/31/21 12:49 Normal Saline IV 1,000 mls/hr .BOLUS HÉCTOR Administration Sodium Chloride 10 ml 03/31/21 12:38 03/31/21 12:50 Sodium Chloride 0.9% 10 Ml Syringe FLUSH 10 ml ASDIRECTED PRN Administration Keep Vein Open Discontinued Medications Generic Name Dose Route Start Last Admin Trade Name Freq PRN Reason Stop Dose Admin Aspirin 324 mg 03/31/21 12:38 03/31/21 12:49 Aspirin 81 Mg Tab.Chew PO 03/31/21 12:39 324 mg ONETIME ONE Administration Famotidine 20 mg 03/31/21 12:44 03/31/21 12:53 Famotidine 20 Mg/2 Ml Sdv IVPUSH 03/31/21 12:45 20 mg ONETIME ONE Administration - Re-Assessments/Exams Free Text/Narrative Re-Assessment/Exam: 03/31/21 14:50 I ordered an IV NS bolus, aspirin, EKG, CXR and labs. Her EKG shows a NSR with no acute changes. Her CXR shows nothing acute. Her CBC and CMP look good. Her troponin is negative. Her ETOH is 0.12. She is doing better. I will discharge her home. I also gave her some pepcid. Departure - Departure Time of Disposition: 14:55 Disposition: Home, Self-Care 01 Condition: Good Clinical Impression: Atypical chest pain Alcohol dependency Qualifiers: Substance use status: unspecified alcohol-induced disorder Qualified Code(s): F10.29 - Alcohol dependence with unspecified alcohol-induced disorder Alcohol intoxication Qualifiers: Complication of substance-induced condition: uncomplicated Qualified Code(s): F10.920 - Alcohol use, unspecified with intoxication, uncomplicated Referrals: PCP,None [Primary Care Provider] - Forms: ED Department Discharge Additional Instructions: Drink plenty of fluids like water and gatorade. Take pepcid daily for a week. Avoid drinking alcohol. If you need help stopping drinking please call [facility] at . Please return if you are worse. Sepsis Event Note (ED) - Evaluation Sepsis Screening Result: No Definite Risk - Focused Exam Vital Signs: Vital Signs Temp Pulse Resp BP Pulse Ox 03/31/21 12:22 96.8 F L 66 18 102/59 L 91 L - My Orders Last 24 Hours: My Active Orders 03/31/21 12:38 Cardiac Monitoring [RC] . DIRECTED Sodium Chloride 0.9% [Saline Flush] 10 ml FLUSH ASDIRECTED PRN Peripheral IV Insertion Adult [OM.PC] Stat 03/31/21 12:39 Peripheral IV Care [RC] . DIRECTED 03/31/21 12:45 Sodium Chloride 0.9% [Normal Saline] 1,000 ml IV .BOLUS - Assessment/Plan Last 24 Hours: My Active Orders 03/31/21 12:38 Cardiac Monitoring [RC] . DIRECTED Sodium Chloride 0.9% [Saline Flush] 10 ml FLUSH ASDIRECTED PRN Peripheral IV Insertion Adult [OM.PC] Stat 03/31/21 12:39 Peripheral IV Care [RC] . DIRECTED 03/31/21 12:45 Sodium Chloride 0.9% [Normal Saline] 1,000 ml IV .BOLUS
== END 2021-03-31 15:25 | disposition home or self-care (01) ==
LOC: JD.ED 12:22
DX: R07.89 Other chest pain (principal); F10.221 Alcohol dependence with intoxication delirium; E78.00 Pure hypercholesterolemia, unspecified; K21.9 Gastro-esophageal reflux disease without esophagitis; E66.9 Obesity, unspecified; Z68.29 Body mass index [BMI] 29.0-29.9, adult; Z88.2 Allergy status to sulfonamides; Z88.5 Allergy status to narcotic agent; Z88.8 Allergy status to other drugs, medicaments and biological substances; Z79.899 Other long term (current) drug therapy; Y90.5 Blood alcohol level of 100-119 mg/100 ml
CPT/HCPCS: 36415; 71045; 80053; 80307; 84484; 85025; 93005; 96374; 99285; A9270; J3490; J7030

== ENCOUNTER 2021-03-31 16:40 | Emergency (ER) | payer SELFPAY | END 2021-03-31 16:56 | disposition left against medical advice (07) | LOC: JD.ED 16:40 | DX: Z53.21 Procedure and treatment not carried out due to patient leaving prior to being seen by health care provider (principal) ==

== ENCOUNTER 2021-03-31 23:57 | Emergency (ER) | payer MEDICAID ==
[2021-04-01 00:20] VITALS: BP 126/89; PULSE 81
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
[2021-04-01] MEDS ORDERED: LORazepam 1 MG Tab PO ONE (01:36)
== END 2021-04-01 02:27 | disposition home or self-care (01) ==
LOC: JD.ED 23:57
DX: F41.9 Anxiety disorder, unspecified (principal); F10.10 Alcohol abuse, uncomplicated; K21.9 Gastro-esophageal reflux disease without esophagitis; E03.9 Hypothyroidism, unspecified; E66.9 Obesity, unspecified; Z68.29 Body mass index [BMI] 29.0-29.9, adult; Y90.0 Blood alcohol level of less than 20 mg/100 ml; Z88.8 Allergy status to other drugs, medicaments and biological substances; Z88.6 Allergy status to analgesic agent; Z88.5 Allergy status to narcotic agent; Z88.0 Allergy status to penicillin; Z88.2 Allergy status to sulfonamides; Z79.899 Other long term (current) drug therapy
CPT/HCPCS: 36415; 80307; 99283; A9270

== ENCOUNTER 2021-04-04 12:53 | Emergency (ER) | payer MEDICAID, OTHER ==
[2021-04-04 13:17] VITALS: BP 165/111; PULSE 97
[2021-04-04] MEDS ORDERED: Sodium Chloride 0.9% 10 ML Syringe FLUSH PRN ×2 (13:31→13:43)
[2021-04-04] MEDS ORDERED: Ondansetron 4 MG/2 ML SDV IVPUSH ONE (13:31)
[2021-04-04] MEDS ORDERED: HYDROmorphone 0.5 MG/0.5 ML Syringe IVPUSH ONE ×2 (13:31→15:42)
[2021-04-04] MEDS ORDERED: Iopamidol 612 MG/ML 100 ML Bottle IVPUSH ONE (13:43)
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
[2021-04-04 14:59] LABS: CORONAVIRUS COVID-19 NAA NEGATIVE (NEGATIVE)
[2021-04-04] MEDS ORDERED: LORazepam 2 MG/ML SDV IVPUSH ONE (15:42)
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
== END 2021-04-04 16:23 ==
LOC: JD.ED 12:53
DX: F10.10 Alcohol abuse, uncomplicated (principal); E66.9 Obesity, unspecified; E03.9 Hypothyroidism, unspecified; Z68.30 Body mass index [BMI] 30.0-30.9, adult; Z20.822 Contact with and (suspected) exposure to COVID-19; Y90.5 Blood alcohol level of 100-119 mg/100 ml; Z79.899 Other long term (current) drug therapy; Z88.0 Allergy status to penicillin; Z88.2 Allergy status to sulfonamides; Z88.6 Allergy status to analgesic agent; Z88.8 Allergy status to other drugs, medicaments and biological substances
CPT/HCPCS: 0241U; 36415; 74177; 80053; 80307; 81001; 83690; 85025; 86140; 96374; 96375; 96376; 99285; J1170; J2060; J2405; Q9967

== ENCOUNTER 2021-04-15 12:43 | Emergency (ER) | payer MEDICAID | END 2021-04-15 12:55 | LOC: JD.ED 12:43 | DX: Z53.21 Procedure and treatment not carried out due to patient leaving prior to being seen by health care provider (principal) ==

== ENCOUNTER 2021-04-17 04:00 | Emergency (ER) | payer MEDICAID ==
[2021-04-17 04:16] VITALS: BP 158/126; PULSE 80
[2021-04-17] MEDS ORDERED: Promethazine 25 MG/ML SDV IM ONE (04:38)
[2021-04-17] MEDS ORDERED: HYDROmorphone 1 MG/ML Syringe IM ONE (04:40)
[2021-04-17] MEDS ORDERED: Alum Hydrox/Mag Hydrox/Simeth 30 ML, Lidocaine 2% 15 ML PO ONE ×2 (06:31)
[2021-04-17] MEDS ORDERED: Famotidine 20 MG Tab PO ONE (06:32)
[2021-04-17] MEDS ORDERED: HYDROmorphone 0.5 MG/0.5 ML Syringe IM ONE (06:47)
== END 2021-04-17 07:21 | disposition home or self-care (01) ==
LOC: JD.ED 04:00
DX: K29.20 Alcoholic gastritis without bleeding (principal); E78.00 Pure hypercholesterolemia, unspecified; K21.9 Gastro-esophageal reflux disease without esophagitis; M19.90 Unspecified osteoarthritis, unspecified site; E03.9 Hypothyroidism, unspecified; E66.9 Obesity, unspecified; Z68.31 Body mass index [BMI] 31.0-31.9, adult; Z88.0 Allergy status to penicillin; Z88.2 Allergy status to sulfonamides; Z88.5 Allergy status to narcotic agent; Z88.6 Allergy status to analgesic agent; Z88.8 Allergy status to other drugs, medicaments and biological substances
CPT/HCPCS: 36415; 80053; 80307; 83690; 85025; 96372; 99284; A9270; J1170; J2550

== ENCOUNTER 2021-04-18 10:58 | Emergency (ER) | payer MEDICAID ==
[2021-04-18 11:17] VITALS: BP 127/85; PULSE 77
[2021-04-18] MEDS ORDERED: Loratadine 10 MG Tab PO ONE (11:28)
[2021-04-18] MEDS ORDERED: Ketorolac 30 MG/ML SDV IM ONE (11:28)
[2021-04-18] MEDS ORDERED: Dicyclomine 10 MG Cap PO ONE (12:00)
== END 2021-04-18 12:30 | disposition left against medical advice (07) ==
LOC: JD.ED 10:58
DX: R10.84 Generalized abdominal pain (principal); K21.9 Gastro-esophageal reflux disease without esophagitis; E03.9 Hypothyroidism, unspecified; E66.9 Obesity, unspecified; Z68.29 Body mass index [BMI] 29.0-29.9, adult; Z88.8 Allergy status to other drugs, medicaments and biological substances; Z88.6 Allergy status to analgesic agent; Z88.5 Allergy status to narcotic agent; Z88.0 Allergy status to penicillin; Z88.2 Allergy status to sulfonamides; Z79.899 Other long term (current) drug therapy
CPT/HCPCS: 74018; 74018-26; 99285-25

== ENCOUNTER 2021-04-24 13:36 | Emergency (ER) | payer MEDICAID ==
[2021-04-24 13:58] VITALS: BP 134/121; PULSE 88
[2021-04-24] MEDS ORDERED: Acetaminophen 325 MG Tab PO ONE (14:33)
[2021-04-24 15:08] LABS: CORONAVIRUS COVID-19 NAA NEGATIVE (NEGATIVE)
== END 2021-04-24 14:40 | disposition left against medical advice (07) ==
LOC: JD.ED 13:36
DX: R07.89 Other chest pain (principal); K21.9 Gastro-esophageal reflux disease without esophagitis; E03.9 Hypothyroidism, unspecified; E66.9 Obesity, unspecified; Z68.32 Body mass index [BMI] 32.0-32.9, adult; Z88.8 Allergy status to other drugs, medicaments and biological substances; Z88.6 Allergy status to analgesic agent; Z88.5 Allergy status to narcotic agent; Z88.0 Allergy status to penicillin; Z88.2 Allergy status to sulfonamides; Z79.899 Other long term (current) drug therapy; Z20.822 Contact with and (suspected) exposure to COVID-19
CPT/HCPCS: 0240U; 36415; 71045; 71045-26; 80053; 84484; 85025; 85379; 93005; 99285-25

== ENCOUNTER 2021-04-25 13:14 | Emergency (ER) | payer MEDICAID ==
[2021-04-25 13:19] VITALS: BP 125/88; PULSE 85
[2021-04-25] MEDS ORDERED: Acetaminophen 325 MG Tab PO ONE (14:30)
== END 2021-04-25 15:00 | disposition home or self-care (01) ==
LOC: JD.ED 13:14
DX: S80.01XA Contusion of right knee, initial encounter (principal); S80.02XA Contusion of left knee, initial encounter; M17.0 Bilateral primary osteoarthritis of knee; E03.9 Hypothyroidism, unspecified; E66.9 Obesity, unspecified; K21.9 Gastro-esophageal reflux disease without esophagitis; Z79.899 Other long term (current) drug therapy; Z88.2 Allergy status to sulfonamides; Z88.8 Allergy status to other drugs, medicaments and biological substances; Z88.6 Allergy status to analgesic agent; Z88.5 Allergy status to narcotic agent; Z68.32 Body mass index [BMI] 32.0-32.9, adult; W01.0XXA Fall on same level from slipping, tripping and stumbling without subsequent striking against object, initial encounter
CPT/HCPCS: 73562; 99283; A9270

== ENCOUNTER 2021-04-25 19:29 | Emergency (ER) | payer MEDICAID ==
[2021-04-25] MEDS ORDERED: Activated Charcoal/Water Susp 50 GM/240 ML Tube PO ONE (19:39)
[2021-04-25] MEDS ORDERED: Ondansetron 4 MG/2 ML SDV IVPUSH ONE (19:50)
[2021-04-25] MEDS ORDERED: Acetylcysteine 20% 200 MG/ML 30 ML Nebulizer Soln SDV PO ONE ×2 (19:54→20:25)
[2021-04-25] MEDS ORDERED: Ondansetron 4 MG Tab.DIS PO ONE ×2 (20:10→20:39)
[2021-04-25 20:56] LABS: ACETAMINOPHEN 73 ug/mL (10-30)
[2021-04-25] MEDS ORDERED: Sodium Chloride 0.9% 1,000 ML ONE (21:48)
[2021-04-25] MEDS ORDERED: diphenhydrAMINE 50 MG/ML SDV IVPUSH ONE (21:58)
[2021-04-25] MEDS ORDERED: Metoclopramide 10 MG/2 ML SDV IVPUSH ONE (21:58)
[2021-04-25] MEDS ORDERED: Metoclopramide 10 MG/2 ML SDV ONE (21:59)
[2021-04-25] MEDS ORDERED: Haloperidol Lactate 5 MG/ML SDV IVPUSH ONE (22:18)
[2021-04-25] MEDS ORDERED: Sodium Chloride 0.9% 1,000 ML IV SCH (22:45)
[2021-04-26 06:30] VITALS: BP 113/77; PULSE 73
[2021-04-26] MEDS ORDERED: LORazepam 1 MG Tab PO ONE (10:37)
== END 2021-04-26 14:20 | disposition home or self-care (01) ==
LOC: JD.ED 19:29
DX: T39.1X1A Poisoning by 4-Aminophenol derivatives, accidental (unintentional), initial encounter (principal); F10.10 Alcohol abuse, uncomplicated; K21.9 Gastro-esophageal reflux disease without esophagitis; E03.9 Hypothyroidism, unspecified; E66.9 Obesity, unspecified; Y90.8 Blood alcohol level of 240 mg/100 ml or more; Z88.2 Allergy status to sulfonamides; Z88.5 Allergy status to narcotic agent; Z88.8 Allergy status to other drugs, medicaments and biological substances; Z88.6 Allergy status to analgesic agent; Z88.0 Allergy status to penicillin; Z79.899 Other long term (current) drug therapy
CPT/HCPCS: 36415; 80053; 80143; 80179; 80306; 80307; 84484; 85025; 85610; 93005; 96374; 96375; 99285; A9270; J1200; J1630; J2765; J7030; 93010; 99284

== ENCOUNTER 2021-04-28 09:57 | Emergency (ER) | payer MEDICAID ==
[2021-04-28] MEDS ORDERED: FLU Vacc QS2021-22 36MOS UP/PF 60 MCG/0.5 ML Syringe IM ONE (10:30)
[2021-04-28] MEDS ORDERED: Oxybutynin 5 MG Tab.ER PO ONE (11:33)
[2021-04-28] MEDS ORDERED: Acetaminophen/HYDROcodone 325-5 MG Tab PO ONE (12:23)
[2021-04-28 12:54] VITALS: BP 146/84; PULSE 66
[2021-04-29] MEDS ORDERED: Oxybutynin 5 MG Tab PO SCH (09:00)
== END 2021-04-28 12:54 | disposition other institution (70) ==
LOC: JD.ED 09:57
DX: N32.89 Other specified disorders of bladder (principal); K21.9 Gastro-esophageal reflux disease without esophagitis; E03.9 Hypothyroidism, unspecified; Z88.0 Allergy status to penicillin; Z88.8 Allergy status to other drugs, medicaments and biological substances; Z88.2 Allergy status to sulfonamides; Z79.899 Other long term (current) drug therapy; Z23 Encounter for immunization
CPT/HCPCS: 36415; 80053; 81003; 85025; 86140; 90471; 90686; 99284; A9270; G0008

== ENCOUNTER 2021-07-17 14:09 | Emergency (ER) | payer MEDICAID ==
[2021-07-17] MEDS ORDERED: Sodium Chloride 0.9% 10 ML Syringe FLUSH PRN (14:49)
[2021-07-17] MEDS ORDERED: HYDROmorphone 1 MG/ML Syringe IVPUSH ONE (14:50)
[2021-07-17] MEDS ORDERED: Ondansetron 4 MG/2 ML SDV IVPUSH ONE (15:19)
[2021-07-17] MEDS ORDERED: Metoclopramide 10 MG/2 ML SDV IVPUSH ONE (16:25)
[2021-07-17 17:47] VITALS: BP 113/91; PULSE 96
== END 2021-07-17 17:40 | disposition home or self-care (01) ==
LOC: JD.ED 14:09 → SUPCPDRO 14:09 → JD.ED 17:40
DX: S06.0X1A Concussion with loss of consciousness of 30 minutes or less, initial encounter (principal); K21.9 Gastro-esophageal reflux disease without esophagitis; E03.9 Hypothyroidism, unspecified; F17.210 Nicotine dependence, cigarettes, uncomplicated; E66.9 Obesity, unspecified; Z68.33 Body mass index [BMI] 33.0-33.9, adult; Z90.49 Acquired absence of other specified parts of digestive tract; Z90.710 Acquired absence of both cervix and uterus; Z86.16 Personal history of COVID-19; Z79.899 Other long term (current) drug therapy; Z88.2 Allergy status to sulfonamides; Z88.8 Allergy status to other drugs, medicaments and biological substances; Z88.6 Allergy status to analgesic agent; Z88.0 Allergy status to penicillin; Z88.5 Allergy status to narcotic agent; W01.190A Fall on same level from slipping, tripping and stumbling with subsequent striking against furniture, initial encounter
CPT/HCPCS: 70450; 96374; 96375; 99284; J1170; J2405; J2765; J3490

== ENCOUNTER 2021-07-18 16:22 | Emergency (ER) | payer MEDICAID ==
[2021-07-18 16:42] VITALS: BP 119/90
[2021-07-18] MEDS ORDERED: HYDROmorphone 1 MG/ML Syringe IVPUSH ONE (16:51)
[2021-07-18] MEDS ORDERED: Benztropine 1 MG Tab PO ONE (16:52)
[2021-07-18] MEDS ORDERED: Promethazine 25 MG in Sodium Chloride 0.9% 50 ML IV ONE (16:52)
[2021-07-18] MEDS ORDERED: Dextrose 5%-0.9% NaCl 1,000 ML IV SCH (17:00)
[2021-07-18] MEDS ORDERED: HYDROmorphone 0.5 MG/0.5 ML Syringe IVPUSH ONE (18:04)
[2021-07-18 18:58] VITALS: PULSE 90
== END 2021-07-18 18:57 | disposition home or self-care (01) ==
LOC: JD.ED 16:22
DX: G44.1 Vascular headache, not elsewhere classified (principal); F07.81 Postconcussional syndrome; R11.2 Nausea with vomiting, unspecified; E78.00 Pure hypercholesterolemia, unspecified; K21.9 Gastro-esophageal reflux disease without esophagitis; E03.9 Hypothyroidism, unspecified; E66.9 Obesity, unspecified; Z72.0 Tobacco use; Z68.33 Body mass index [BMI] 33.0-33.9, adult; Z88.5 Allergy status to narcotic agent; Z88.6 Allergy status to analgesic agent; Z88.8 Allergy status to other drugs, medicaments and biological substances; Z79.899 Other long term (current) drug therapy; W22.09XA Striking against other stationary object, initial encounter; Y92.009 Unspecified place in unspecified non-institutional (private) residence as the place of occurrence of the external cause
CPT/HCPCS: 96365; 96375; 96376; 99283; A9270; J1170; J2550; J7042

== ENCOUNTER 2021-07-25 14:04 | Emergency (ER) | payer MEDICAID ==
[2021-07-25 14:17] VITALS: BP 141/108; PULSE 88
[2021-07-25] MEDS ORDERED: Sodium Chloride 0.9% 10 ML Syringe FLUSH PRN (14:31)
[2021-07-25] MEDS ORDERED: LORazepam 2 MG/ML SDV IVPUSH ONE (14:35)
[2021-07-25] MEDS ORDERED: Ondansetron 4 MG/2 ML SDV IVPUSH ONE (14:35)
[2021-07-25] MEDS ORDERED: LORazepam 1 MG Tab PO ONE (17:21)
== END 2021-07-25 17:35 | disposition home or self-care (01) ==
LOC: JD.ED 14:04
DX: F10.10 Alcohol abuse, uncomplicated (principal); E78.00 Pure hypercholesterolemia, unspecified; K21.9 Gastro-esophageal reflux disease without esophagitis; M19.90 Unspecified osteoarthritis, unspecified site; E66.9 Obesity, unspecified; E03.9 Hypothyroidism, unspecified; Z68.33 Body mass index [BMI] 33.0-33.9, adult; Z88.0 Allergy status to penicillin; Z72.0 Tobacco use; Z86.16 Personal history of COVID-19; Z88.6 Allergy status to analgesic agent; Z88.8 Allergy status to other drugs, medicaments and biological substances; Z88.2 Allergy status to sulfonamides; Z88.5 Allergy status to narcotic agent; Z79.899 Other long term (current) drug therapy; Y90.1 Blood alcohol level of 20-39 mg/100 ml
CPT/HCPCS: 36415; 80053; 80307; 83690; 84484; 85025; 93005; 96374; 96375; 99284; A9270; J2060; J2405; J3490

== ENCOUNTER 2021-08-11 12:49 | Emergency (ER) | payer MEDICAID ==
[2021-08-11 13:07] VITALS: BP 126/109; PULSE 100
[2021-08-11] MEDS ORDERED: Metoclopramide 10 MG/2 ML SDV IVPUSH ONE (13:19)
[2021-08-11] MEDS ORDERED: Sodium Chloride 0.9% 10 ML Syringe FLUSH PRN (13:19)
[2021-08-11] MEDS ORDERED: Sodium Chloride 0.9% 1,000 ML IV ONE (13:19)
== END 2021-08-11 14:00 | disposition left against medical advice (07) ==
LOC: JD.ED 12:49
DX: F10.10 Alcohol abuse, uncomplicated (principal); E78.00 Pure hypercholesterolemia, unspecified; K21.9 Gastro-esophageal reflux disease without esophagitis; M19.90 Unspecified osteoarthritis, unspecified site; E03.9 Hypothyroidism, unspecified; Z79.899 Other long term (current) drug therapy; Z88.2 Allergy status to sulfonamides; Z88.0 Allergy status to penicillin; Z88.5 Allergy status to narcotic agent; Z88.8 Allergy status to other drugs, medicaments and biological substances
CPT/HCPCS: 36415; 96374; 99284; J2765; J3490; J7030

== ENCOUNTER 2021-08-12 10:05 | Emergency (ER) | payer MEDICAID ==
[2021-08-12 10:40] VITALS: BP 125/99; PULSE 101
[2021-08-12] MEDS ORDERED: Sodium Chloride 0.9% 10 ML Syringe FLUSH PRN (10:43)
[2021-08-12] MEDS ORDERED: LORazepam 2 MG/ML SDV IVPUSH ONE (10:55)
[2021-08-12] MEDS ORDERED: Sodium Chloride 0.9% 1,000 ML IV ONE (10:55)
[2021-08-12] MEDS ORDERED: Metoclopramide 10 MG/2 ML SDV IVPUSH ONE (10:56)
[2021-08-12 11:54] LABS: ACETAMINOPHEN 0 ug/mL (10-30)
[2021-08-12] MEDS ORDERED: Lactated Ringers 1,000 ML IV ONE (12:14)
[2021-08-12] MEDS ORDERED: LORazepam 1 MG Tab PO ONE (12:47)
[2021-08-12] MEDS ORDERED: Aluminum Hydroxide/Magnesium Hydroxide/Simethicone Susp 30 ML Cup PO ONE (13:30)
== END 2021-08-12 17:59 | disposition other institution (70) ==
LOC: JD.ED 10:05
DX: F10.10 Alcohol abuse, uncomplicated (principal); E78.00 Pure hypercholesterolemia, unspecified; K21.9 Gastro-esophageal reflux disease without esophagitis; E66.9 Obesity, unspecified; Z72.0 Tobacco use; Z68.32 Body mass index [BMI] 32.0-32.9, adult; Z88.8 Allergy status to other drugs, medicaments and biological substances; Z88.0 Allergy status to penicillin; Z88.2 Allergy status to sulfonamides; Z79.899 Other long term (current) drug therapy
CPT/HCPCS: 36415; 80053; 80143; 80179; 80306; 80307; 81003; 81025; 83690; 83735; 84443; 85025; 87635; 96374; 96375; 99285; A9270; J2060; J2765; J3490; J7030; J7120; U0002

== ENCOUNTER 2021-08-12 19:08 | Emergency (ER) | payer MEDICAID ==
[2021-08-12] MEDS ORDERED: LORazepam 2 MG/ML SDV IM ONE (19:57)
[2021-08-12 20:42] VITALS: BP 131/75; PULSE 75
== END 2021-08-12 20:40 | disposition home or self-care (01) ==
LOC: JD.ED 19:08
DX: F10.230 Alcohol dependence with withdrawal, uncomplicated (principal); E78.00 Pure hypercholesterolemia, unspecified; K21.9 Gastro-esophageal reflux disease without esophagitis; E03.9 Hypothyroidism, unspecified; E66.9 Obesity, unspecified; Z68.32 Body mass index [BMI] 32.0-32.9, adult; Z86.16 Personal history of COVID-19; Z79.899 Other long term (current) drug therapy; Z88.2 Allergy status to sulfonamides; Z88.0 Allergy status to penicillin; Z88.8 Allergy status to other drugs, medicaments and biological substances
CPT/HCPCS: 96372; 99284; J2060

== ENCOUNTER 2021-08-20 07:42 | Emergency (ER) | payer MEDICAID ==
[2021-08-20 08:07] VITALS: BP 139/95; PULSE 105
[2021-08-20] MEDS ORDERED: HYDROmorphone 0.5 MG/0.5 ML Syringe IVPUSH ONE (08:18)
[2021-08-20] MEDS ORDERED: Ondansetron 4 MG/2 ML SDV IVPUSH ONE (08:18)
[2021-08-20] MEDS ORDERED: Sodium Chloride 0.9% 1,000 ML IV STA (08:18)
[2021-08-20] MEDS ORDERED: Sodium Chloride 0.9% 10 ML Syringe FLUSH PRN ×2 (08:18→09:32)
[2021-08-20] MEDS ORDERED: Iopamidol 612 MG/ML 100 ML Bottle IVPUSH ONE (09:32)
[2021-08-20] MEDS ORDERED: Dicyclomine 10 MG Cap PO ONE (10:54)
== END 2021-08-20 11:30 | disposition home or self-care (01) ==
LOC: JD.ED 07:42
DX: K52.9 Noninfective gastroenteritis and colitis, unspecified (principal); E78.00 Pure hypercholesterolemia, unspecified; E03.9 Hypothyroidism, unspecified; E66.9 Obesity, unspecified; Z68.33 Body mass index [BMI] 33.0-33.9, adult; Z87.891 Personal history of nicotine dependence; Z88.0 Allergy status to penicillin; Z88.8 Allergy status to other drugs, medicaments and biological substances; Z88.2 Allergy status to sulfonamides; Z88.5 Allergy status to narcotic agent; Z79.899 Other long term (current) drug therapy
CPT/HCPCS: 36415; 74177; 80053; 80307; 81001; 82977; 83690; 85025; 86140; 96374; 96375; 99284; A9270; J1170; J2405; J3490; J7030; Q9967

== ENCOUNTER 2021-09-05 19:22 | Emergency (ER) | payer MEDICAID ==
[2021-09-05 19:35] VITALS: PULSE 86
[2021-09-05 19:36] VITALS: BP 148/107
[2021-09-05] MEDS ORDERED: Sodium Chloride 0.9% 10 ML Syringe FLUSH PRN (19:46)
[2021-09-05] MEDS ORDERED: Sodium Chloride 0.9% 1,000 ML IV ONE (19:46)
[2021-09-05] MEDS ORDERED: Ondansetron 4 MG/2 ML SDV IVPUSH ONE (19:49)
[2021-09-05] MEDS ORDERED: HYDROmorphone 0.5 MG/0.5 ML Syringe IVPUSH ONE (19:49)
[2021-09-05] MEDS ORDERED: HYDROmorphone 1 MG/ML Syringe IM ONE (20:30)
[2021-09-05] MEDS ORDERED: Ondansetron 4 MG/2 ML SDV IM ONE (20:30)
[2021-09-05 20:32] LABS: ESTIMATED GFR > 60 mL/min (>60)
== END 2021-09-05 21:22 | disposition home or self-care (01) ==
LOC: JD.ED 19:22
DX: R10.84 Generalized abdominal pain (principal); R11.2 Nausea with vomiting, unspecified; F10.129 Alcohol abuse with intoxication, unspecified; E78.00 Pure hypercholesterolemia, unspecified; K21.9 Gastro-esophageal reflux disease without esophagitis; E03.9 Hypothyroidism, unspecified; E66.9 Obesity, unspecified; Z86.16 Personal history of COVID-19; Z88.0 Allergy status to penicillin; Z88.2 Allergy status to sulfonamides; Z88.5 Allergy status to narcotic agent; Z88.8 Allergy status to other drugs, medicaments and biological substances; Z79.899 Other long term (current) drug therapy; Z68.33 Body mass index [BMI] 33.0-33.9, adult; Y90.0 Blood alcohol level of less than 20 mg/100 ml
CPT/HCPCS: 36415; 80053; 80307; 83690; 83735; 85025; 86140; 96372; 99284; J1170; J2405

== ENCOUNTER 2021-09-06 10:18 | Emergency (ER) | payer MEDICAID ==
[2021-09-06 11:08] VITALS: BP 146/117; PULSE 95
[2021-09-06] MEDS ORDERED: Sodium Chloride 0.9% 10 ML Syringe FLUSH PRN ×2 (11:20→13:19)
[2021-09-06] MEDS ORDERED: Pantoprazole 40 MG Vial IVPUSH ONE (11:21)
[2021-09-06] MEDS ORDERED: LORazepam 2 MG/ML SDV IVPUSH ONE ×2 (11:22→15:21)
[2021-09-06] MEDS ORDERED: Ondansetron 4 MG/2 ML SDV IVPUSH ONE (11:23)
[2021-09-06] MEDS ORDERED: Sodium Chloride 0.9% 1,000 ML IV SCH (11:30)
[2021-09-06 12:29] LABS: ESTIMATED GFR 51 mL/min (>60)
[2021-09-06 12:30] LABS: ACETAMINOPHEN 0 ug/mL (10-30)
[2021-09-06] MEDS ORDERED: HYDROmorphone 0.5 MG/0.5 ML Syringe IVPUSH ONE (12:48)
[2021-09-06] MEDS ORDERED: Dicyclomine 10 MG Cap PO ONE (12:49)
[2021-09-06] MEDS ORDERED: Iopamidol 612 MG/ML 100 ML Bottle IVPUSH ONE (13:19)
[2021-09-06] MEDS ORDERED: Metoclopramide 10 MG/2 ML SDV IVPUSH ONE (13:37)
== END 2021-09-06 15:41 | disposition home or self-care (01) ==
LOC: JD.ED 10:18
DX: K52.9 Noninfective gastroenteritis and colitis, unspecified (principal); K92.2 Gastrointestinal hemorrhage, unspecified; E78.00 Pure hypercholesterolemia, unspecified; K21.9 Gastro-esophageal reflux disease without esophagitis; E03.9 Hypothyroidism, unspecified; E66.9 Obesity, unspecified; F17.210 Nicotine dependence, cigarettes, uncomplicated; Z68.32 Body mass index [BMI] 32.0-32.9, adult; Z88.0 Allergy status to penicillin; Z88.2 Allergy status to sulfonamides; Z88.5 Allergy status to narcotic agent; Z88.8 Allergy status to other drugs, medicaments and biological substances; Z79.899 Other long term (current) drug therapy
CPT/HCPCS: 36415; 71045; 74177; 80053; 80143; 80179; 80306; 80307; 81001; 83690; 83735; 85025; 85610; 86140; 96361; 96374; 96375; 96376; 99284; A9270; C9113; J1170; J2060; J2405; J2765; J3490; J7030; Q9967

== ENCOUNTER 2021-09-07 09:42 | Emergency (ER) | payer MEDICAID ==
[2021-09-07] MEDS ORDERED: LORazepam 2 MG/ML SDV IVPUSH ONE (10:10)
[2021-09-07] MEDS ORDERED: Ondansetron 4 MG/2 ML SDV IVPUSH ONE (10:10)
[2021-09-07] MEDS ORDERED: HYDROmorphone 0.5 MG/0.5 ML Syringe IVPUSH ONE ×2 (10:10→12:52)
[2021-09-07] MEDS ORDERED: Sodium Chloride 0.9% 1,000 ML IV SCH ×2 (10:15→12:30)
[2021-09-07] MEDS: Sodium Chloride 0.9% 10 ML Syringe FLUSH PRN ×2 (11:14→12:58)
[2021-09-07 11:44] LABS: ESTIMATED GFR 51 mL/min (>60)
[2021-09-07] MEDS ORDERED: Dicyclomine 10 MG Cap PO ONE (12:07)
[2021-09-07] MEDS ORDERED: Potassium Chloride Riders 10 MEQ in Premix Bag 1 BAG IV ONE (12:14)
[2021-09-07 14:44] VITALS: BP 128/82; PULSE 82
== END 2021-09-07 14:40 | disposition home or self-care (01) ==
LOC: JD.ED 09:42
DX: R10.84 Generalized abdominal pain (principal); E87.6 Hypokalemia; R11.2 Nausea with vomiting, unspecified; R19.7 Diarrhea, unspecified; K21.9 Gastro-esophageal reflux disease without esophagitis; E03.9 Hypothyroidism, unspecified; E66.9 Obesity, unspecified; Z68.30 Body mass index [BMI] 30.0-30.9, adult; Z86.16 Personal history of COVID-19; Z90.49 Acquired absence of other specified parts of digestive tract; Z90.710 Acquired absence of both cervix and uterus; Z79.899 Other long term (current) drug therapy; Z88.0 Allergy status to penicillin; Z88.2 Allergy status to sulfonamides; Z88.5 Allergy status to narcotic agent; Z88.6 Allergy status to analgesic agent; Z88.8 Allergy status to other drugs, medicaments and biological substances
CPT/HCPCS: 36415; 80053; 80307; 85025; 96361; 96365; 96375; 96376; 99284; A9270; J1170; J2060; J2405; J3480; J3490; J7030

== ENCOUNTER 2021-09-12 11:51 | Emergency (ER) | payer MEDICAID ==
[2021-09-12 12:18] VITALS: BP 135/96; PULSE 92
[2021-09-12] MEDS ORDERED: LORazepam 2 MG/ML SDV IM ONE (12:41)
[2021-09-12] MEDS ORDERED: Ondansetron 4 MG Tab.DIS PO ONE (12:41)
== END 2021-09-12 14:32 | disposition home or self-care (01) ==
LOC: JD.ED 11:51
DX: F43.9 Reaction to severe stress, unspecified (principal); F10.120 Alcohol abuse with intoxication, uncomplicated; Y90.5 Blood alcohol level of 100-119 mg/100 ml; K21.9 Gastro-esophageal reflux disease without esophagitis; E03.9 Hypothyroidism, unspecified; E66.9 Obesity, unspecified; Z68.33 Body mass index [BMI] 33.0-33.9, adult; Z88.0 Allergy status to penicillin; Z88.2 Allergy status to sulfonamides; Z88.6 Allergy status to analgesic agent; Z88.8 Allergy status to other drugs, medicaments and biological substances; Z88.5 Allergy status to narcotic agent; Z79.899 Other long term (current) drug therapy
CPT/HCPCS: 36415; 80053; 80307; 85025; 96372; 99284; A9270; J2060; 99283

== ENCOUNTER 2021-09-17 13:34 | Emergency (ER) | payer MEDICAID ==
[2021-09-17 13:48] VITALS: BP 144/98; PULSE 93
== END 2021-09-17 14:25 | disposition home or self-care (01) ==
LOC: JD.ED 13:34
DX: Z02.89 Encounter for other administrative examinations (principal); E78.00 Pure hypercholesterolemia, unspecified; Z88.2 Allergy status to sulfonamides; Z88.5 Allergy status to narcotic agent; Z88.0 Allergy status to penicillin; Z79.899 Other long term (current) drug therapy; Z86.16 Personal history of COVID-19
CPT/HCPCS: 99283

== ENCOUNTER 2021-09-30 07:30 | Emergency (ER) | payer MEDICAID | END 2021-09-30 08:20 | disposition left against medical advice (07) | LOC: JD.ED 07:30 | DX: Z53.21 Procedure and treatment not carried out due to patient leaving prior to being seen by health care provider (principal) ==

== ENCOUNTER 2021-10-14 07:08 | Day surgery (SDC) | payer MEDICAID ==
[~2021-10-14 07:08] MED LIST: Lactated Ringers 1,000 ML IV SCH; Lidocaine 1% 0 ML ONE; Lidocaine 1%/Sod Bicarbonate in NS 8.4% 1 ML Syringe IDERM PRN; Propofol 200 MG/20 ML SDV ONE; Sodium Chloride 0.9% 10 ML Syringe FLUSH PRN; Sodium Chloride 0.9% 10 ML Syringe FLUSH SCH
[2021-10-14] MEDS ORDERED: Propofol 200 MG/20 ML SDV ONE ×3 (08:19→08:40)
[2021-10-14] MEDS ORDERED: Lidocaine 1% 4 ML ONE (08:20)
[2021-10-14] MEDS ORDERED: Ondansetron 4 MG/2 ML SDV IVPUSH ONE (09:04)
[2021-10-14 13:24] VITALS: BP 101/70; PULSE 72
== END 2021-10-14 09:55 | disposition home or self-care (01) ==
LOC: JD.SDS 07:08
PROVIDERS: ATTEND Surgery
DX: D12.3 Benign neoplasm of transverse colon (principal); K31.89 Other diseases of stomach and duodenum; K21.00 Gastro-esophageal reflux disease with esophagitis, without bleeding; K44.9 Diaphragmatic hernia without obstruction or gangrene; K64.8 Other hemorrhoids; F41.8 Other specified anxiety disorders; E78.00 Pure hypercholesterolemia, unspecified; I10 Essential (primary) hypertension; G43.909 Migraine, unspecified, not intractable, without status migrainosus; G47.30 Sleep apnea, unspecified; F17.210 Nicotine dependence, cigarettes, uncomplicated; E03.9 Hypothyroidism, unspecified; Z79.890 Hormone replacement therapy; Z88.2 Allergy status to sulfonamides; Z88.5 Allergy status to narcotic agent; Z88.0 Allergy status to penicillin; Z88.8 Allergy status to other drugs, medicaments and biological substances; Z79.899 Other long term (current) drug therapy; Z90.49 Acquired absence of other specified parts of digestive tract; Z98.890 Other specified postprocedural states
CPT/HCPCS: 36415; 43239; 45380; 80307; J2405; J2704; J7120; 00813

== ENCOUNTER 2021-10-16 14:35 | Emergency (ER) | payer MEDICAID | END 2021-10-16 16:30 | disposition left against medical advice (07) | LOC: JD.ED 14:35 | DX: Z53.21 Procedure and treatment not carried out due to patient leaving prior to being seen by health care provider (principal) ==

== ENCOUNTER 2021-10-28 07:49 | Emergency (ER) | payer MEDICAID ==
[2021-10-28 08:25] VITALS: PULSE 94
[2021-10-28] MEDS ORDERED: Lactated Ringers 500 ML IV ONE (08:51)
[2021-10-28] MEDS ORDERED: Ondansetron 4 MG/2 ML SDV IVPUSH ONE (08:51)
[2021-10-28] MEDS ORDERED: Lactated Ringers 1,000 ML IV SCH (09:00)
[2021-10-28] MEDS ORDERED: LORazepam 2 MG/ML SDV IVPUSH ONE (11:12)
[2021-10-28] MEDS ORDERED: Potassium Chloride 20 MEQ Tab.ER PO ONE (12:06)
[2021-10-28 14:45] VITALS: BP 135/92
== END 2021-10-28 15:10 | disposition home or self-care (01) ==
LOC: JD.ED 07:49
DX: F10.29 Alcohol dependence with unspecified alcohol-induced disorder (principal); E78.00 Pure hypercholesterolemia, unspecified; I10 Essential (primary) hypertension; K21.9 Gastro-esophageal reflux disease without esophagitis; M19.90 Unspecified osteoarthritis, unspecified site; E03.9 Hypothyroidism, unspecified; Z88.6 Allergy status to analgesic agent; Z88.8 Allergy status to other drugs, medicaments and biological substances; Z88.0 Allergy status to penicillin; Z88.2 Allergy status to sulfonamides; Z79.899 Other long term (current) drug therapy
CPT/HCPCS: 36415; 80053; 80306; 80307; 81001; 83690; 85025; 87086; 87088; 87186; 96361; 96374; 96375; 99284; A9270; J2060; J2405; J7120

== ENCOUNTER 2021-10-30 09:40 | Emergency (ER) | payer MEDICAID ==
[2021-10-30 10:25] VITALS: BP 141/116; PULSE 110
[2021-10-30] MEDS ORDERED: Sodium Chloride 0.9% 1,000 ML IV ONE (10:36)
[2021-10-30] MEDS ORDERED: HYDROmorphone 1 MG/ML Syringe IM ONE (11:33)
[2021-10-30] MEDS ORDERED: Ondansetron 4 MG Tab.DIS PO ONE (11:35)
[2021-10-30] MEDS ORDERED: Alum Hydrox/Mag Hydrox/Simeth 30 ML, Lidocaine 2% 15 ML PO ONE ×2 (12:26)
[2021-10-30] MEDS ORDERED: Haloperidol Lactate 5 MG/ML SDV IM ONE (12:26)
[2021-10-30] MEDS ORDERED: Pantoprazole 40 MG Tab.CR PO STA (12:26)
[2021-10-30] MEDS ORDERED: oxyCODONE 5 MG Tab PO ONE (14:03)
== END 2021-10-30 16:24 | disposition home or self-care (01) ==
LOC: JD.ED 09:40
DX: R10.11 Right upper quadrant pain (principal); R10.13 Epigastric pain; K21.9 Gastro-esophageal reflux disease without esophagitis; I10 Essential (primary) hypertension; E66.9 Obesity, unspecified; Z68.30 Body mass index [BMI] 30.0-30.9, adult; Z88.8 Allergy status to other drugs, medicaments and biological substances; Z88.1 Allergy status to other antibiotic agents; Z88.2 Allergy status to sulfonamides; Z88.5 Allergy status to narcotic agent; Z86.16 Personal history of COVID-19; Z90.49 Acquired absence of other specified parts of digestive tract
CPT/HCPCS: 36415; 80053; 80307; 83690; 83735; 85025; 85610; 93005; 96372; 99284; A9270; J1170; J1630

== ENCOUNTER 2022-01-03 21:37 | Emergency (ER) | payer MEDICAID ==
[2022-01-03 21:52] VITALS: BP 163/105
[2022-01-03] MEDS ORDERED: PHENobarbital Sodium 65 MG/ML SDV IVPUSH ONE (22:13)
[2022-01-03] MEDS ORDERED: MVI, Adult with Vitamin K 10 ML in Lactated Ringers 1,000 ML IV ONE ×2 (22:17)
[2022-01-03 23:10] LABS: ESTIMATED GFR 101 mL/min (>60)
[2022-01-04 00:15] VITALS: PULSE 83
[2022-01-04] MEDS ORDERED: PHENobarbital Sodium 65 MG/ML SDV IVPUSH ONE (00:24)
[2022-01-04] MEDS ORDERED: Potassium Chloride 20 MEQ Tab.ER PO ONE (02:29)
== END 2022-01-04 06:28 | disposition home or self-care (01) ==
LOC: JD.ED 21:37
DX: F10.10 Alcohol abuse, uncomplicated (principal); E78.00 Pure hypercholesterolemia, unspecified; I10 Essential (primary) hypertension; K21.9 Gastro-esophageal reflux disease without esophagitis; E03.9 Hypothyroidism, unspecified; Z88.2 Allergy status to sulfonamides; Z88.0 Allergy status to penicillin; Z88.6 Allergy status to analgesic agent; Z88.8 Allergy status to other drugs, medicaments and biological substances; Z79.899 Other long term (current) drug therapy; Z86.16 Personal history of COVID-19
CPT/HCPCS: 36415; 80053; 83605; 83690; 85025; 85610; 96374; 99284; A9270; J2560; J7120

== ENCOUNTER 2022-01-09 16:42 | Emergency (ER) | payer MEDICAID | END 2022-01-09 17:32 | disposition left against medical advice (07) | LOC: JD.ED 16:42 | DX: Z53.21 Procedure and treatment not carried out due to patient leaving prior to being seen by health care provider (principal) ==

== ENCOUNTER 2022-01-09 18:22 | Emergency (ER) | payer MEDICAID ==
[2022-01-09] MEDS ORDERED: Acetaminophen 325 MG Tab PO ONE (20:07)
[2022-01-09] MEDS ORDERED: Sodium Chloride 0.9% 1,000 ML IV SCH (20:15)
[2022-01-10 01:17] VITALS: BP 144/87; PULSE 88
== END 2022-01-09 22:11 ==
LOC: JD.ED 18:22
DX: R20.2 Paresthesia of skin (principal); I69.952 Hemiplegia and hemiparesis following unspecified cerebrovascular disease affecting left dominant side; F10.129 Alcohol abuse with intoxication, unspecified; I10 Essential (primary) hypertension; E66.9 Obesity, unspecified; Z68.32 Body mass index [BMI] 32.0-32.9, adult; Z88.8 Allergy status to other drugs, medicaments and biological substances; Z88.6 Allergy status to analgesic agent; Z88.2 Allergy status to sulfonamides; Z88.0 Allergy status to penicillin; Z79.899 Other long term (current) drug therapy; Z86.16 Personal history of COVID-19; Z90.49 Acquired absence of other specified parts of digestive tract; Z90.710 Acquired absence of both cervix and uterus; Z20.822 Contact with and (suspected) exposure to COVID-19
CPT/HCPCS: 36415; 70450; 80053; 80307; 85025; 85610; 87635; 99285; J7030; 36410; 99283; U0002

== ENCOUNTER 2022-01-23 09:50 | Emergency (ER) | payer MEDICAID ==
[2022-01-23] MEDS ORDERED: LORazepam 2 MG/ML SDV IVPUSH ONE ×4 (09:55→22:32)
[2022-01-23] MEDS ORDERED: Metoclopramide 10 MG/2 ML SDV IVPUSH ONE (09:55)
[2022-01-23] MEDS ORDERED: Thiamine 200 MG/2 ML MDV IVPUSH ONE (09:57)
[2022-01-23] MEDS ORDERED: Famotidine 20 MG/2 ML SDV IVPUSH ONE (10:03)
[2022-01-23] MEDS: diphenhydrAMINE 50 MG/ML SDV IVPUSH ONE ×2 (10:59→11:06)
[2022-01-23] MEDS: Dextrose 5%-Lactated Ringers 1,000 ML IV SCH ×2 (10:59→12:32)
[2022-01-23 11:32] LABS: ESTIMATED GFR 86 mL/min (>60)
[2022-01-23] MEDS ORDERED: cefTRIAXone 1 GM in Sodium Chloride 0.9% 100 ML IV ONE (11:46)
[2022-01-23] MEDS ORDERED: HYDROmorphone 0.5 MG/0.5 ML Syringe IVPUSH ONE ×2 (11:59→13:15)
[2022-01-23] MEDS ORDERED: Dextrose 5%-Lactated Ringers 1,000 ML IV SCH ×2 (12:30→17:00)
[2022-01-23] MEDS ORDERED: Lactated Ringers 1,000 ML IV SCH (13:15)
[2022-01-23] MEDS ORDERED: Haloperidol Lactate 5 MG/ML SDV IVPUSH ONE (16:51)
[2022-01-23] MEDS ORDERED: QUEtiapine 100 MG Tab PO ONE (23:14)
[2022-01-24] MEDS ORDERED: LORazepam 2 MG/ML SDV IVPUSH ONE ×2 (04:14→07:50)
[2022-01-24] MEDS ORDERED: Venlafaxine 75 MG Cap.ER PO ONE (07:07)
[2022-01-24] MEDS ORDERED: Levothyroxine 50 MCG Tab PO SCH (07:49)
[2022-01-24] MEDS ORDERED: Pantoprazole 40 MG Tab.CR PO ONE (07:50)
[2022-01-24 10:34] VITALS: BP 148/85; PULSE 85
[2022-01-25] MEDS ORDERED: Pantoprazole 40 MG Tab.CR PO SCH (06:00)
[2022-01-25] MEDS ORDERED: Levothyroxine 50 MCG Tab PO SCH (06:00)
== END 2022-01-24 10:36 | disposition other institution (70) ==
LOC: JD.ED 09:50
DX: F10.230 Alcohol dependence with withdrawal, uncomplicated (principal); K21.9 Gastro-esophageal reflux disease without esophagitis; I10 Essential (primary) hypertension; E66.9 Obesity, unspecified; Z68.33 Body mass index [BMI] 33.0-33.9, adult; Z88.8 Allergy status to other drugs, medicaments and biological substances; Z88.6 Allergy status to analgesic agent; Z88.1 Allergy status to other antibiotic agents; Z88.0 Allergy status to penicillin; Z88.2 Allergy status to sulfonamides; Z88.5 Allergy status to narcotic agent; Z79.899 Other long term (current) drug therapy; Z86.16 Personal history of COVID-19; Z90.49 Acquired absence of other specified parts of digestive tract; Z90.710 Acquired absence of both cervix and uterus
CPT/HCPCS: 36410; 36415; 80053; 80306; 80307; 81001; 82009; 83605; 83690; 83735; 83880; 85025; 85610; 85730; 86140; 87086; 87088; 87186; 93005; 96361; 96365; 96375; 96376; 99285-25; A9270-GY; J0696; J1170; J1200; J1630; J2060; J2765; J3411; J3490; J7120; J7121

== ENCOUNTER 2022-02-12 10:21 | Emergency (ER) | payer MEDICAID ==
[2022-02-12 11:27] VITALS: BP 155/98; PULSE 105
[2022-02-12] MEDS ORDERED: Metoclopramide 10 MG/2 ML SDV IVPUSH ONE (11:37)
[2022-02-12] MEDS ORDERED: HYDROmorphone 0.5 MG/0.5 ML Syringe IVPUSH ONE (11:37)
[2022-02-12] MEDS ORDERED: LORazepam 2 MG/ML SDV IVPUSH ONE (11:37)
[2022-02-12] MEDS ORDERED: Sodium Chloride 0.9% 1,000 ML IV STA (11:37)
[2022-02-12] MEDS ORDERED: Sodium Chloride 0.9% 10 ML Syringe FLUSH PRN (11:39)
[2022-02-12] MEDS ORDERED: Metoclopramide 10 MG/2 ML SDV IM ONE (12:23)
[2022-02-12] MEDS ORDERED: HYDROmorphone 1 MG/ML Syringe IM ONE (12:23)
[2022-02-12] MEDS ORDERED: LORazepam 2 MG/ML SDV IM ONE (12:23)
[2022-02-12] MEDS ORDERED: Acetaminophen 325 MG Tab PO ONE (12:24)
[2022-02-12 12:55] LABS: CORONAVIRUS COVID-19 NAA NEGATIVE (NEGATIVE)
== END 2022-02-12 14:21 | disposition home or self-care (01) ==
LOC: JD.ED 10:21
DX: G43.909 Migraine, unspecified, not intractable, without status migrainosus (principal); B02.9 Zoster without complications; I10 Essential (primary) hypertension; K21.9 Gastro-esophageal reflux disease without esophagitis; M19.90 Unspecified osteoarthritis, unspecified site; E03.9 Hypothyroidism, unspecified; E66.9 Obesity, unspecified; Z68.32 Body mass index [BMI] 32.0-32.9, adult; Z88.8 Allergy status to other drugs, medicaments and biological substances; Z88.6 Allergy status to analgesic agent; Z88.0 Allergy status to penicillin; Z88.2 Allergy status to sulfonamides; Z79.899 Other long term (current) drug therapy; Z20.822 Contact with and (suspected) exposure to COVID-19
CPT/HCPCS: 0240U; 36415; 80053; 81001; 85025; 87086; 87088; 87186; 96372; 99283; A9270; J1170; J2060; J2765

== ENCOUNTER 2022-03-02 11:49 | Emergency (ER) | payer MEDICAID ==
[2022-03-02 13:11] LABS: CORONAVIRUS COVID-19 NAA NEGATIVE (NEGATIVE)
[2022-03-02 14:33] VITALS: BP 152/98; PULSE 85
== END 2022-03-02 14:35 | disposition home or self-care (01) ==
LOC: JD.ED 11:49
DX: J40 Bronchitis, not specified as acute or chronic (principal); I10 Essential (primary) hypertension; K21.9 Gastro-esophageal reflux disease without esophagitis; E03.9 Hypothyroidism, unspecified; E66.9 Obesity, unspecified; Z88.8 Allergy status to other drugs, medicaments and biological substances; Z88.6 Allergy status to analgesic agent; Z88.5 Allergy status to narcotic agent; Z88.0 Allergy status to penicillin; Z88.2 Allergy status to sulfonamides; Z79.899 Other long term (current) drug therapy; Z20.822 Contact with and (suspected) exposure to COVID-19
CPT/HCPCS: 0241U; 71046; 99283

== ENCOUNTER 2022-04-18 12:05 | Emergency (ER) | payer MEDICAID ==
[2022-04-18 12:16] VITALS: BP 109/97; PULSE 88
== END 2022-04-18 14:23 | disposition home or self-care (01) ==
LOC: JD.ED 12:05
DX: S40.022A Contusion of left upper arm, initial encounter (principal); S80.01XA Contusion of right knee, initial encounter; I10 Essential (primary) hypertension; K21.9 Gastro-esophageal reflux disease without esophagitis; M19.90 Unspecified osteoarthritis, unspecified site; E03.9 Hypothyroidism, unspecified; E66.9 Obesity, unspecified; Z68.32 Body mass index [BMI] 32.0-32.9, adult; Z88.8 Allergy status to other drugs, medicaments and biological substances; Z88.6 Allergy status to analgesic agent; Z88.5 Allergy status to narcotic agent; Z88.0 Allergy status to penicillin; Z88.2 Allergy status to sulfonamides; Z79.899 Other long term (current) drug therapy; W00.0XXA Fall on same level due to ice and snow, initial encounter
CPT/HCPCS: 73090-26-LT; 73090-LT; 73100-26-LT; 73100-LT; 73562-26-RT; 73562-RT; 99283

== ENCOUNTER 2022-06-01 16:22 | Emergency (ER) | payer MEDICAID ==
[2022-06-01 16:34] VITALS: BP 147/83; PULSE 86
== END 2022-06-01 17:59 | disposition left against medical advice (07) ==
LOC: JD.ED 16:22
DX: R07.89 Other chest pain (principal); I10 Essential (primary) hypertension; K21.9 Gastro-esophageal reflux disease without esophagitis; E03.9 Hypothyroidism, unspecified; E66.9 Obesity, unspecified; Z68.31 Body mass index [BMI] 31.0-31.9, adult; Z87.891 Personal history of nicotine dependence; Z88.8 Allergy status to other drugs, medicaments and biological substances; Z88.6 Allergy status to analgesic agent; Z88.5 Allergy status to narcotic agent; Z88.0 Allergy status to penicillin; Z88.2 Allergy status to sulfonamides; Z79.899 Other long term (current) drug therapy
CPT/HCPCS: 36415; 71045; 71045-26; 80053; 83735; 83880; 84484; 85025; 85610; 85730; 93005; 93010; 99283; 99285

== ENCOUNTER 2022-06-08 09:07 | Emergency (ER) | payer MEDICAID ==
[2022-06-08] MEDS ORDERED: Sodium Chloride 0.9% 1,000 ML IV ONE (09:51)
[2022-06-08] MEDS ORDERED: Ondansetron 4 MG/2 ML SDV IVPUSH ONE ×2 (09:51→16:16)
[2022-06-08] MEDS ORDERED: LORazepam 2 MG/ML SDV IVPUSH STA ×2 (09:51→16:16)
[2022-06-08 13:05] LABS: CORONAVIRUS COVID-19 NAA NEGATIVE (NEGATIVE)
[2022-06-08] MEDS ORDERED: Venlafaxine 75 MG Cap.ER PO STA (16:20)
[2022-06-08] MEDS ORDERED: busPIRone 5 MG Tab PO STA (16:20)
[2022-06-08] MEDS ORDERED: LORazepam 1 MG Tab PO ONE (20:04)
[2022-06-08 23:59] VITALS: BP 138/96; PULSE 92
== END 2022-06-08 21:10 ==
LOC: JD.ED 09:07
DX: F10.220 Alcohol dependence with intoxication, uncomplicated (principal); F15.10 Other stimulant abuse, uncomplicated; E78.00 Pure hypercholesterolemia, unspecified; I10 Essential (primary) hypertension; K21.9 Gastro-esophageal reflux disease without esophagitis; M19.90 Unspecified osteoarthritis, unspecified site; E03.9 Hypothyroidism, unspecified; F17.210 Nicotine dependence, cigarettes, uncomplicated; E66.9 Obesity, unspecified; Z68.35 Body mass index [BMI] 35.0-35.9, adult; Z88.8 Allergy status to other drugs, medicaments and biological substances; Z88.6 Allergy status to analgesic agent; Z88.5 Allergy status to narcotic agent; Z88.0 Allergy status to penicillin; Z88.2 Allergy status to sulfonamides; Z79.899 Other long term (current) drug therapy; Z20.822 Contact with and (suspected) exposure to COVID-19
CPT/HCPCS: 0241U; 36415; 80053; 80143; 80179; 80306; 80307; 83735; 84443; 85025; 93005; 96361; 96374; 96375; 96376; 99285; A9270; J2060; J2405; J7030; 93010; 99284

== ENCOUNTER 2022-06-20 13:24 | Emergency (ER) | payer MEDICAID ==
[2022-06-20 13:33] VITALS: BP 146/93; PULSE 91
[2022-06-20] MEDS ORDERED: LORazepam 1 MG Tab PO ONE (13:44)
[2022-06-20] MEDS ORDERED: Ondansetron 4 MG Tab.DIS PO ONE (13:45)
== END 2022-06-20 14:40 | disposition home or self-care (01) ==
LOC: JD.ED 13:24
DX: F10.130 Alcohol abuse with withdrawal, uncomplicated (principal); I10 Essential (primary) hypertension; K21.9 Gastro-esophageal reflux disease without esophagitis; M19.90 Unspecified osteoarthritis, unspecified site; E03.9 Hypothyroidism, unspecified; E66.9 Obesity, unspecified; Z68.33 Body mass index [BMI] 33.0-33.9, adult; Z88.8 Allergy status to other drugs, medicaments and biological substances; Z88.5 Allergy status to narcotic agent; Z88.6 Allergy status to analgesic agent; Z88.0 Allergy status to penicillin; Z88.2 Allergy status to sulfonamides; Z79.899 Other long term (current) drug therapy
CPT/HCPCS: 99283; A9270

== ENCOUNTER 2022-06-21 16:25 | Emergency (ER) | payer MEDICAID ==
[2022-06-21 18:59] LABS: ESTIMATED GFR 86 mL/min (>60)
[2022-06-21] MEDS ORDERED: Nitroglycerin 0.4 MG Tab.SL SL ONE (19:26)
[2022-06-21] MEDS ORDERED: Acetaminophen 325 MG Tab PO ONE (19:27)
[2022-06-21] MEDS ORDERED: LORazepam 1 MG Tab PO ONE (20:43)
[2022-06-21] MEDS ORDERED: cloNIDine 0.1 MG Tab PO ONE (21:57)
[2022-06-21 22:41] VITALS: BP 145/90; PULSE 88
== END 2022-06-21 22:35 | disposition home or self-care (01) ==
LOC: JD.ED 16:25
DX: R07.2 Precordial pain (principal); I10 Essential (primary) hypertension; K21.9 Gastro-esophageal reflux disease without esophagitis; E03.9 Hypothyroidism, unspecified; E66.9 Obesity, unspecified; Z68.33 Body mass index [BMI] 33.0-33.9, adult; Z88.8 Allergy status to other drugs, medicaments and biological substances; Z88.6 Allergy status to analgesic agent; Z88.5 Allergy status to narcotic agent; Z88.0 Allergy status to penicillin; Z88.2 Allergy status to sulfonamides; Z79.899 Other long term (current) drug therapy
CPT/HCPCS: 36415; 80053; 83735; 84484; 85025; 85379; 85610; 93005; 99285; A9270; 93010; 99283

== ENCOUNTER 2022-06-22 15:42 | Emergency (ER) | payer MEDICAID ==
[2022-06-22 15:51] VITALS: BP 145/80; PULSE 89
[2022-06-22] MEDS ORDERED: Acetaminophen/HYDROcodone 325-5 MG Tab PO ONE (18:02)
[2022-06-22] MEDS ORDERED: LORazepam 1 MG Tab PO ONE (18:02)
== END 2022-06-22 20:21 | disposition other institution (70) ==
LOC: JD.ED 15:42
DX: R07.89 Other chest pain (principal); F10.930 Alcohol use, unspecified with withdrawal, uncomplicated; I10 Essential (primary) hypertension; E03.9 Hypothyroidism, unspecified; E66.9 Obesity, unspecified; Z88.0 Allergy status to penicillin; Z88.6 Allergy status to analgesic agent; Z88.2 Allergy status to sulfonamides; Z88.5 Allergy status to narcotic agent; Z79.899 Other long term (current) drug therapy; Z90.49 Acquired absence of other specified parts of digestive tract
CPT/HCPCS: 93005; 99285; A9270

== ENCOUNTER 2022-07-20 11:34 | Emergency (ER) | payer MEDICAID ==
[2022-07-20 11:43] VITALS: BP 148/99; PULSE 106
[2022-07-20] MEDS ORDERED: Sodium Chloride 0.9% 10 ML Syringe FLUSH PRN (11:59)
[2022-07-20] MEDS ORDERED: LORazepam 2 MG/ML SDV IVPUSH ONE (11:59)
[2022-07-20] MEDS ORDERED: Lactated Ringers 1,000 ML IV SCH (12:00)
[2022-07-20] MEDS ORDERED: Glucagon,Human Recombinant 1 MG Vial IVPUSH ONE (12:00)
== END 2022-07-20 15:04 | disposition home or self-care (01) ==
LOC: JD.ED 11:34
DX: T18.128A Food in esophagus causing other injury, initial encounter (principal); E03.9 Hypothyroidism, unspecified; K21.9 Gastro-esophageal reflux disease without esophagitis; I10 Essential (primary) hypertension; E66.9 Obesity, unspecified; Z68.33 Body mass index [BMI] 33.0-33.9, adult; Z79.899 Other long term (current) drug therapy; Z88.5 Allergy status to narcotic agent; Z88.0 Allergy status to penicillin; Z88.2 Allergy status to sulfonamides; Z88.8 Allergy status to other drugs, medicaments and biological substances
CPT/HCPCS: 96374; 96375; 99284; J1610; J2060; J3490; J7120

== ENCOUNTER → 2022-08-12 | Day surgery (SDC) | payer MEDICAID ==
[~2022-08-12] MED LIST changes: +Alum Hydrox/Mag Hydrox/Simeth 30 ML, Lidocaine 2% 15 ML PO STA; +Glucagon,Human Recombinant 1 MG Vial IVPUSH ONE; +HYDROmorphone 1 MG/ML Syringe IVPUSH ONE; +LORazepam 2 MG/ML SDV IVPUSH ONE; -Lactated Ringers 1,000 ML IV SCH; -Lidocaine 1% 0 ML ONE; +Lidocaine 1% 2 ML ONE; -Lidocaine 1%/Sod Bicarbonate in NS 8.4% 1 ML Syringe IDERM PRN; +Midazolam 1 MG/ML 2 ML SDV ONE; +Ondansetron 4 MG/2 ML SDV IVPUSH ONE; +Pantoprazole 40 MG Vial IVPUSH ONE; +Sodium Chloride 0.9% 1,000 ML IV ONE; -Sodium Chloride 0.9% 10 ML Syringe FLUSH SCH; +Succinylcholine 200 MG/10 ML MDV ONE; +fentaNYL 100 MCG/2 ML SDV ONE
[2022-08-12 14:33] LABS: BASOPHILS ABSOLUTE AUTO 0.02 K/mm3 (0.01-0.08); BASOPHILS PERCENT AUTO 0.4 % (0.1-1.2); EOSINOPHILS ABSOLUTE AUTO 0.37 K/mm3 (0.04-0.36); EOSINOPHILS PERCENT AUTO 7.1 (0.7-5.8); HEMATOCRIT 39.1 % (34.1-44.9); HEMOGLOBIN 12.9 gm/dl (11.2-15.7); IMMATURE GRAN ABSOLUTE AUTO 0.02 K/mm3 (0.00-0.10); IMMATURE GRAN PERCENT AUTO 0.4 % (<=1.0); LYMPHOCYTES ABSOLUTE AUTO 1.95 K/mm3 (1.18-3.74); LYMPHOCYTES PERCENT AUTO 37.6 % (19.3-51.7); MEAN CORPUSCULAR HEMOGLOBIN 32.2 pg (25.6-32.2); MEAN CORPUSCULAR VOLUME 97.5 fl (79.4-94.8); MONOCYTES ABSOLUTE AUTO 0.38 K/mm3 (0.24-0.36); MONOCYTES PERCENT AUTO 7.3 % (4.7-12.5); NEUTROPHILS ABSOLUTE AUTO 2.44 K/mm3 (1.56-6.13); NEUTROPHILS PERCENT AUTO 47.2 % (34.0-71.1); PLATELET COUNT,PLT 251 K/mm3 (182-369); RED BLOOD CELL COUNT 4.01 M/mm3 (3.98-5.22); WHITE BLOOD CELL COUNT,WBC 5.18 K/mm3 (3.98-10.04)
[2022-08-12 14:52] LABS: A/G RATIO 0.9 (1-2); ALBUMIN 3.2 g/dl (3.4-5.0); ALKALINE PHOSPHATASE 148 U/L (46-116); ANION GAP 15.3 (5-15); BILIRUBIN TOTAL 0.2 mg/dL (0.2-1.0); BLOOD UREA NITROGEN,BUN 13 mg/dL (7-18); BUN/CREATININE RATIO 18.6 (14-18); CALCIUM 8.2 mg/dL (8.5-10.1); CARBON DIOXIDE,CO2 22 mEq/L (21-32); CHLORIDE,CL 104 mEq/L (98-107); CREATININE 0.7 mg/dL (0.55-1.02); EST CRCL DRUG DOSING (CG) 79.79 mL/min; ESTIMATED GFR 101 mL/min (>60); LIPASE 112 U/L (73-393); PROTEIN TOTAL,TP 6.8 g/dl (6.4-8.2); SODIUM,NA 138 mEq/L (136-145)
[2022-08-12 15:23] LABS: GLUCOSE RANDOM 119 mg/dL (70-99); POTASSIUM,K 3.3 mEq/L (3.5-5.1)
[2022-08-12 20:17] VITALS: BP 117/97; PULSE 81
== END ==
LOC: JD.ED 13:22 → JD.SDS 19:37
PROVIDERS: ATTEND Surgery
DX: K29.50 Unspecified chronic gastritis without bleeding (principal); T18.108A Unspecified foreign body in esophagus causing other injury, initial encounter; R07.2 Precordial pain; E78.00 Pure hypercholesterolemia, unspecified; I10 Essential (primary) hypertension; J30.9 Allergic rhinitis, unspecified; K22.2 Esophageal obstruction; G47.00 Insomnia, unspecified; M19.90 Unspecified osteoarthritis, unspecified site; F41.9 Anxiety disorder, unspecified; F32.A Depression, unspecified; E03.9 Hypothyroidism, unspecified; E66.9 Obesity, unspecified; Z90.49 Acquired absence of other specified parts of digestive tract; Z88.8 Allergy status to other drugs, medicaments and biological substances; Z88.5 Allergy status to narcotic agent; Z88.0 Allergy status to penicillin; Z88.2 Allergy status to sulfonamides; Z88.6 Allergy status to analgesic agent; Z79.899 Other long term (current) drug therapy; Z79.890 Hormone replacement therapy; Z90.710 Acquired absence of both cervix and uterus; Z98.51 Tubal ligation status; Z68.34 Body mass index [BMI] 34.0-34.9, adult
CPT/HCPCS: 36415; 43239; 80053; 83690; 85025; 93005; 96361; 96374; 96375; 99284; A9270; C9113; J0330; J1170; J1610; J2060; J2250; J2405; J2704; J3010; J3490; J7030; 00731; 93010; 99285

== ENCOUNTER 2022-09-15 18:38 | Emergency (ER) | payer MEDICAID ==
[2022-09-15 18:52] VITALS: BP 117/85; PULSE 72
[2022-09-15] MEDS ORDERED: Alum Hydrox/Mag Hydrox/Simeth 30 ML, Lidocaine 2% 15 ML PO STA ×2 (19:09)
[2022-09-15] MEDS ORDERED: Sucralfate Suspension 1 GM/10 ML Cup PO ONE (19:09)
== END 2022-09-15 19:15 | disposition left against medical advice (07) ==
LOC: JD.ED 18:38
DX: R07.9 Chest pain, unspecified (principal); F10.20 Alcohol dependence, uncomplicated; I10 Essential (primary) hypertension; K21.9 Gastro-esophageal reflux disease without esophagitis; M19.90 Unspecified osteoarthritis, unspecified site; E03.9 Hypothyroidism, unspecified; E66.9 Obesity, unspecified; Z68.33 Body mass index [BMI] 33.0-33.9, adult; Z87.891 Personal history of nicotine dependence; Z88.8 Allergy status to other drugs, medicaments and biological substances; Z88.6 Allergy status to analgesic agent; Z88.5 Allergy status to narcotic agent; Z88.0 Allergy status to penicillin; Z88.2 Allergy status to sulfonamides; Z79.899 Other long term (current) drug therapy
CPT/HCPCS: 93005; 93010; 99283; 99284

== ENCOUNTER 2022-10-05 12:39 | Emergency (ER) | payer MEDICAID ==
[2022-10-05] MEDS ORDERED: HYDROmorphone 1 MG/ML Syringe IM ONE (13:09)
[2022-10-05] MEDS ORDERED: Orphenadrine 100 MG Tab.ER PO ONE (13:09)
[2022-10-05] MEDS ORDERED: Acetaminophen 325 MG Tab PO ONE (15:47)
[2022-10-05 16:05] VITALS: BP 130/95; PULSE 86
== END 2022-10-05 16:05 | disposition home or self-care (01) ==
LOC: JD.ED 12:39
DX: S39.012A Strain of muscle, fascia and tendon of lower back, initial encounter (principal); I10 Essential (primary) hypertension; K21.9 Gastro-esophageal reflux disease without esophagitis; E03.9 Hypothyroidism, unspecified; E66.9 Obesity, unspecified; Z68.30 Body mass index [BMI] 30.0-30.9, adult; Z87.891 Personal history of nicotine dependence; Z88.2 Allergy status to sulfonamides; Z88.5 Allergy status to narcotic agent; Z88.8 Allergy status to other drugs, medicaments and biological substances; Z88.6 Allergy status to analgesic agent; Z88.0 Allergy status to penicillin; Z79.899 Other long term (current) drug therapy; X50.0XXA Overexertion from strenuous movement or load, initial encounter; Y92.000 Kitchen of unspecified non-institutional (private) residence as the place of occurrence of the external cause
CPT/HCPCS: 72131; 96372; 99283; A9270; J1170

== ENCOUNTER 2022-10-07 17:32 | Emergency (ER) | payer MEDICAID ==
[2022-10-07 17:56] VITALS: BP 133/80; PULSE 74
== END 2022-10-07 18:09 | disposition left against medical advice (07) ==
LOC: JD.ED 17:32
DX: Z53.21 Procedure and treatment not carried out due to patient leaving prior to being seen by health care provider (principal)

== ENCOUNTER 2022-10-22 08:00 | Day surgery (SDC) | payer MEDICAID ==
[~2022-10-22 08:00] MED LIST changes: -Alum Hydrox/Mag Hydrox/Simeth 30 ML, Lidocaine 2% 15 ML PO STA; -Glucagon,Human Recombinant 1 MG Vial IVPUSH ONE; -HYDROmorphone 1 MG/ML Syringe IVPUSH ONE; -LORazepam 2 MG/ML SDV IVPUSH ONE; +Lactated Ringers 1,000 ML IV SCH; -Lidocaine 1% 2 ML ONE; -Midazolam 1 MG/ML 2 ML SDV ONE; -Ondansetron 4 MG/2 ML SDV IVPUSH ONE; -Pantoprazole 40 MG Vial IVPUSH ONE; -Propofol 200 MG/20 ML SDV ONE; -Sodium Chloride 0.9% 1,000 ML IV ONE; +Sodium Chloride 0.9% 10 ML Syringe FLUSH SCH; -Succinylcholine 200 MG/10 ML MDV ONE; -fentaNYL 100 MCG/2 ML SDV ONE
[2022-10-22] MEDS ORDERED: Bupivacaine 0.5%/EPINEPHrine 1:200,000 50 ML MDV ONE (08:31)
[2022-10-22] MEDS ORDERED: Lidocaine 1% 20 ML MDV ONE (08:31)
[2022-10-22] MEDS ORDERED: Bacitracin Oint 15 GM Tube ONE (08:31)
[2022-10-22] MEDS ORDERED: fentaNYL 100 MCG/2 ML SDV ONE (08:48)
[2022-10-22] MEDS ORDERED: Propofol 200 MG/20 ML SDV ONE (08:48)
[2022-10-22] MEDS ORDERED: Midazolam 1 MG/ML 2 ML SDV ONE (08:48)
[2022-10-22] MEDS ORDERED: Ketamine 500 mg/10 ML MDV ONE (08:53)
[2022-10-22] MEDS ORDERED: Lidocaine 1% 4 ML ONE (09:34)
[2022-10-22 11:35] VITALS: BP 122/80; PULSE 76
== END 2022-10-22 11:20 | disposition home or self-care (01) ==
LOC: JD.SDS 08:00
PROVIDERS: ATTEND Specialist
DX: M79.89 Other specified soft tissue disorders (principal); L92.3 Foreign body granuloma of the skin and subcutaneous tissue; F41.9 Anxiety disorder, unspecified; F32.A Depression, unspecified; K21.9 Gastro-esophageal reflux disease without esophagitis; E78.00 Pure hypercholesterolemia, unspecified; G47.00 Insomnia, unspecified; G43.909 Migraine, unspecified, not intractable, without status migrainosus; M19.90 Unspecified osteoarthritis, unspecified site; G47.30 Sleep apnea, unspecified; F17.200 Nicotine dependence, unspecified, uncomplicated; Z88.2 Allergy status to sulfonamides; Z88.0 Allergy status to penicillin; Z88.5 Allergy status to narcotic agent; Z88.8 Allergy status to other drugs, medicaments and biological substances; Z79.899 Other long term (current) drug therapy; Z79.890 Hormone replacement therapy
CPT/HCPCS: 21931; J2250; J2704; J3010; J3490; J7120; A9270-GY

== ENCOUNTER 2022-10-28 11:55 | Emergency (ER) | payer MEDICAID ==
[2022-10-28] MEDS ORDERED: Sodium Chloride 0.9% 10 ML Syringe FLUSH PRN ×2 (12:15→12:49)
[2022-10-28] MEDS ORDERED: Prochlorperazine 10 MG/2 ML SDV IVPUSH ONE (12:55)
[2022-10-28 13:03] VITALS: BP 142/89; PULSE 87
[2022-10-28 13:08] LABS: BASOPHILS ABSOLUTE AUTO 0.03 K/mm3 (0.01-0.08); BASOPHILS PERCENT AUTO 0.6 % (0.1-1.2); EOSINOPHILS ABSOLUTE AUTO 0.32 K/mm3 (0.04-0.36); EOSINOPHILS PERCENT AUTO 6.1 (0.7-5.8); HEMOGLOBIN 11.6 gm/dl (11.2-15.7); IMMATURE GRAN ABSOLUTE AUTO 0.01 K/mm3 (0.00-0.10); IMMATURE GRAN PERCENT AUTO 0.2 % (<=1.0); LYMPHOCYTES PERCENT AUTO 36.5 % (19.3-51.7); MEAN CORPUSCULAR HEMOGLOBIN 31.6 pg (25.6-32.2); MEAN CORPUSCULAR HGB CONC 32.2 g/dl (32.2-35.5); MEAN CORPUSCULAR VOLUME 98.1 fl (79.4-94.8); MEAN PLATELET VOLUME 10.5 fl (9.4-12.3); MONOCYTES ABSOLUTE AUTO 0.45 K/mm3 (0.24-0.36); MONOCYTES PERCENT AUTO 8.6 % (4.7-12.5); PLATELET COUNT,PLT 300 K/mm3 (182-369); RED BLOOD CELL COUNT 3.67 M/mm3 (3.98-5.22); WHITE BLOOD CELL COUNT,WBC 5.21 K/mm3 (3.98-10.04)
== END 2022-10-28 13:14 | disposition left against medical advice (07) ==
LOC: JD.ED 11:55
DX: G44.1 Vascular headache, not elsewhere classified (principal); E78.00 Pure hypercholesterolemia, unspecified; I10 Essential (primary) hypertension; K21.9 Gastro-esophageal reflux disease without esophagitis; Z88.8 Allergy status to other drugs, medicaments and biological substances; Z88.0 Allergy status to penicillin; Z88.1 Allergy status to other antibiotic agents; Z88.5 Allergy status to narcotic agent; Z79.899 Other long term (current) drug therapy
CPT/HCPCS: 36415; 70450; 70450-26; 82947; 85025; 93005; 93010; 99284

== ENCOUNTER 2022-11-10 12:11 | Emergency (ER) | payer MEDICAID ==
[2022-11-10 12:46] VITALS: BP 116/76; PULSE 102
[2022-11-10] MEDS ORDERED: Sodium Chloride 0.9% 10 ML Syringe FLUSH PRN ×2 (13:33→13:36)
[2022-11-10] MEDS ORDERED: LORazepam 2 MG/ML SDV IVPUSH ONE (13:34)
[2022-11-10] MEDS ORDERED: Iopamidol 612 MG/ML 100 ML Bottle IVPUSH ONE (13:36)
[2022-11-10] MEDS ORDERED: Sodium Chloride 0.9% 1,000 ML IV ONE (13:44)
[2022-11-10 14:17] LABS: BASOPHILS ABSOLUTE AUTO 0.02 K/mm3 (0.01-0.08); BASOPHILS PERCENT AUTO 0.3 % (0.1-1.2); EOSINOPHILS ABSOLUTE AUTO 0.16 K/mm3 (0.04-0.36); EOSINOPHILS PERCENT AUTO 2.6 (0.7-5.8); HEMATOCRIT 38.1 % (34.1-44.9); HEMOGLOBIN 12.6 gm/dl (11.2-15.7); IMMATURE GRAN ABSOLUTE AUTO 0.01 K/mm3 (0.00-0.10); IMMATURE GRAN PERCENT AUTO 0.2 % (<=1.0); LYMPHOCYTES ABSOLUTE AUTO 1.76 K/mm3 (1.18-3.74); LYMPHOCYTES PERCENT AUTO 28.4 % (19.3-51.7); MEAN CORPUSCULAR HEMOGLOBIN 31.7 pg (25.6-32.2); MEAN CORPUSCULAR HGB CONC 33.1 g/dl (32.2-35.5); MONOCYTES PERCENT AUTO 9.7 % (4.7-12.5); NEUTROPHILS ABSOLUTE AUTO 3.65 K/mm3 (1.56-6.13); NEUTROPHILS PERCENT AUTO 58.8 % (34.0-71.1); PLATELET COUNT,PLT 252 K/mm3 (182-369); RED BLOOD CELL COUNT 3.97 M/mm3 (3.98-5.22)
[2022-11-10 14:52] LABS: A/G RATIO 1.1 (1-2); ALANINE AMINOTRANSFERASE,ALT 47 U/L (14-59); ALKALINE PHOSPHATASE 133 U/L (46-116); ASPARTATE AMNIOTRANSFERASE,AST 43 U/L (15-37); BLOOD UREA NITROGEN,BUN 15 mg/dL (7-18); BUN/CREATININE RATIO 16.7 (14-18); CARBON DIOXIDE,CO2 22 mEq/L (21-32); CHLORIDE,CL 97 mEq/L (98-107); CREATININE 0.9 mg/dL (0.55-1.02); EST CRCL DRUG DOSING (CG) 61.31 mL/min; ESTIMATED GFR 74 mL/min (>60); GLUCOSE RANDOM 236 mg/dL (70-99); PROTEIN TOTAL,TP 7.5 g/dl (6.4-8.2); SODIUM,NA 133 mEq/L (136-145)
[2022-11-10] MEDS ORDERED: LORazepam 2 MG/ML SDV IM ONE (14:52)
[2022-11-10 14:53] LABS: C-REACTIVE PROTEIN < 0.2 mg/dL (<1.0)
== END 2022-11-10 16:15 | disposition home or self-care (01) ==
LOC: JD.ED 12:11
DX: L76.22 Postprocedural hemorrhage of skin and subcutaneous tissue following other procedure (principal); K92.2 Gastrointestinal hemorrhage, unspecified; I10 Essential (primary) hypertension; K21.9 Gastro-esophageal reflux disease without esophagitis; E03.9 Hypothyroidism, unspecified; Z88.0 Allergy status to penicillin; Z88.1 Allergy status to other antibiotic agents; Z88.2 Allergy status to sulfonamides; Z88.5 Allergy status to narcotic agent; Z88.8 Allergy status to other drugs, medicaments and biological substances; Z79.899 Other long term (current) drug therapy
CPT/HCPCS: 36415; 74176; 80053; 85025; 86140; 96372; 99285; J2060; J3490; 99284

== ENCOUNTER 2022-11-13 15:49 | Emergency (ER) | payer MEDICAID ==
[2022-11-13 16:10] VITALS: BP 134/95; PULSE 88
== END 2022-11-13 16:30 | disposition left against medical advice (07) ==
LOC: JD.ED 15:49
DX: Z53.21 Procedure and treatment not carried out due to patient leaving prior to being seen by health care provider (principal)

== ENCOUNTER 2023-02-01 02:34 | Emergency (ER) | payer MEDICAID ==
[2023-02-01] MEDS ORDERED: Acetaminophen 325 MG Tab PO ONE (02:42)
[2023-02-01] MEDS ORDERED: Sodium Chloride 0.9% 10 ML Syringe FLUSH PRN (02:47)
[2023-02-01] MEDS ORDERED: Sodium Chloride 0.9% 1,000 ML IV ONE (02:55)
[2023-02-01 03:15] LABS: BASOPHILS PERCENT AUTO 0.4 % (0.0-1.0); EOSINOPHILS PERCENT AUTO 0.6 % (0.0-6.0); HEMATOCRIT 38.4 % (37.0-47.0); HEMOGLOBIN 12.8 gm/dl (12.0-16.0); IMMATURE GRAN ABSOLUTE AUTO 0.01 K/mm3 (0.00-0.05); IMMATURE GRAN PERCENT AUTO 0.1 % (0.0-0.4); LYMPHOCYTES ABSOLUTE AUTO 0.3 K/mm3 (1.0-4.8); LYMPHOCYTES PERCENT AUTO 4.3 % (24.0-44.0); MEAN CORPUSCULAR HEMOGLOBIN 31.1 pg (28.0-32.0); MEAN CORPUSCULAR HGB CONC 33.3 g/dl (32.0-36.0); MEAN CORPUSCULAR VOLUME 93.4 fl (83.0-99.0); MEAN PLATELET VOLUME 10.5 fl (9.4-12.3); MONOCYTES ABSOLUTE AUTO 0.7 K/mm3 (0.0-0.8); MONOCYTES PERCENT AUTO 9.5 % (0.0-8.0); NEUTROPHILS ABSOLUTE AUTO 5.9 K/mm3 (1.8-7.7); NEUTROPHILS PERCENT AUTO 85.1 % (41.0-71.0); PLATELET COUNT,PLT 182 K/mm3 (150-400); RED BLOOD CELL COUNT 4.11 M/mm3 (4.10-5.30); WHITE BLOOD CELL COUNT,WBC 6.97 K/mm3 (3.9-11.3)
[2023-02-01 03:35] LABS: ALANINE AMINOTRANSFERASE,ALT 51 U/L (14-59); ALBUMIN 3.4 g/dl (3.4-5.0); ALKALINE PHOSPHATASE 102 U/L (46-116); ANION GAP 13.5 (5-15); ASPARTATE AMNIOTRANSFERASE,AST 59 U/L (15-37); BILIRUBIN TOTAL 0.4 mg/dL (0.2-1.0); BLOOD UREA NITROGEN,BUN 14 mg/dL (7-18); C-REACTIVE PROTEIN 1.1 mg/dL (<1.0); CALCIUM 8.9 mg/dL (8.5-10.1); CARBON DIOXIDE,CO2 28 mEq/L (21-32); CHLORIDE,CL 96 mEq/L (98-107); ESTIMATED GFR 65 mL/min (>60); GLUCOSE RANDOM 118 mg/dL (70-99); MAGNESIUM 1.2 mg/dL (1.8-2.4); POTASSIUM,K 3.5 mEq/L (3.5-5.1); PROTEIN TOTAL,TP 6.7 g/dl (6.4-8.2); SODIUM,NA 134 mEq/L (136-145)
[2023-02-01 03:49] LABS: INFLUENZA A NAA NEGATIVE (NEGATIVE); RESPIRATORY SYNCYTIAL VIR NAA NEGATIVE (NEGATIVE)
[2023-02-01] MEDS ORDERED: Magnesium Sulfate/Water 2 GM in Premix Bag 1 BAG IV ONE (04:32)
[2023-02-01 04:41] LABS: CORONAVIRUS COVID-19 NAA POSITIVE (NEGATIVE)
[2023-02-01 04:46] LABS: APPEARANCE,URINE SLT CLOUDY (Clear); BILIRUBIN,URINE NEGATIVE (Negative); COLOR,URINE YELLOW (Yellow); GLUCOSE,URINE NEGATIVE (Negative); KETONES,URINE NEGATIVE (Negative); LEUKOCYTE ESTERASE,URINE NEGATIVE (Negative); NITRITE,URINE POSITIVE (Negative); OCCULT BLOOD,URINE NEGATIVE (Negative); PROTEIN,URINE TRACE (Negative)
[2023-02-01 04:53] LABS: BACTERIA,URINE MANY /hpf (FEW); MUCUS,URINE RARE /hpf (FEW); RBC,URINE 0-5 /hpf (0-5); SQUAMOUS EPITHELIAL CELLS,UR 0-5 /hpf (0-5); WBC,URINE 0-5 /hpf (0-5)
[2023-02-01 04:55] LABS: BARBITURATE SCREEN,URINE NEGATIVE (CUTOFF=200); BENZODIAZEPINES SCREEN,URINE NEGATIVE (CUTOFF=150); BUPRENORPHINE SCREEN,URINE NEGATIVE (CUTOFF=10); METHADONE SCREEN, URINE NEGATIVE (CUTOFF=200); METHAMPHETAMINES SCREEN, URINE PRESUMPTIVE POSITIVE (CUTOFF=500); OXYCODONE SCREEN,URINE NEGATIVE (CUT0FF=100); THC SCREEN,URINE 20 NG/ML NEGATIVE (CUTOFF=50)
[2023-02-01 04:56] LABS: AMPHETAMINES SCREEN, URINE PRESUMPTIVE POSITIVE (CUTOFF=500)
[2023-02-01] MEDS ORDERED: Ibuprofen 600 MG Tab PO ONE (06:20)
[2023-02-01 07:33] VITALS: BP 125/88; PULSE 82
== END 2023-02-01 07:33 | disposition home or self-care (01) ==
LOC: JD.ED 02:34
DX: U07.1 COVID-19 (principal); E66.9 Obesity, unspecified; I10 Essential (primary) hypertension; K21.9 Gastro-esophageal reflux disease without esophagitis; E03.9 Hypothyroidism, unspecified; Z79.899 Other long term (current) drug therapy; Z88.0 Allergy status to penicillin; Z88.8 Allergy status to other drugs, medicaments and biological substances; Z88.2 Allergy status to sulfonamides
CPT/HCPCS: 0241U; 36415; 70450; 71046; 80053; 80306; 80307; 81001; 83605; 83735; 85025; 86140; 96361; 96365; 96366; 99284; A9270; C1758; J3475; J3490; J7030; 99283

== ENCOUNTER 2023-02-05 13:46 | Emergency (ER) | payer MEDICAID ==
[2023-02-05 14:00] VITALS: BP 159/91; PULSE 82
== END 2023-02-05 15:47 | disposition left against medical advice (07) ==
LOC: JD.ED 13:46
DX: Z53.21 Procedure and treatment not carried out due to patient leaving prior to being seen by health care provider (principal)

== ENCOUNTER 2023-03-11 08:41 | Emergency (ER) | payer MEDICAID ==
[2023-03-11] MEDS ORDERED: Metoclopramide 10 MG/2 ML SDV IVPUSH ONE (08:59)
[2023-03-11] MEDS ORDERED: diphenhydrAMINE 50 MG/ML SDV IVPUSH ONE (09:00)
[2023-03-11] MEDS ORDERED: Dextrose 5%-Lactated Ringers 1,000 ML IV SCH (09:00)
[2023-03-11] MEDS ORDERED: HYDROmorphone 0.5 MG/0.5 ML Syringe IVPUSH ONE ×2 (09:00→12:21)
[2023-03-11] MEDS ORDERED: LORazepam 2 MG/ML SDV IVPUSH ONE ×2 (09:02→12:20)
[2023-03-11 09:06] LABS: BASOPHILS ABSOLUTE AUTO 0.1 K/mm3 (0.0-0.2); BASOPHILS PERCENT AUTO 0.9 % (0.0-1.0); EOSINOPHILS ABSOLUTE AUTO 0.2 K/mm3 (0.0-0.4); EOSINOPHILS PERCENT AUTO 3.5 % (0.0-6.0); HEMATOCRIT 46.5 % (37.0-47.0); IMMATURE GRAN ABSOLUTE AUTO 0.02 K/mm3 (0.00-0.05); IMMATURE GRAN PERCENT AUTO 0.4 % (0.0-0.4); LYMPHOCYTES ABSOLUTE AUTO 1.5 K/mm3 (1.0-4.8); LYMPHOCYTES PERCENT AUTO 26.1 % (24.0-44.0); MEAN CORPUSCULAR HEMOGLOBIN 31.5 pg (28.0-32.0); MEAN CORPUSCULAR HGB CONC 33.3 g/dl (32.0-36.0); MEAN CORPUSCULAR VOLUME 94.5 fl (83.0-99.0); MEAN PLATELET VOLUME 10.1 fl (9.4-12.3); MONOCYTES ABSOLUTE AUTO 0.4 K/mm3 (0.0-0.8); MONOCYTES PERCENT AUTO 7.5 % (0.0-8.0); NEUTROPHILS ABSOLUTE AUTO 3.5 K/mm3 (1.8-7.7); NEUTROPHILS PERCENT AUTO 61.6 % (41.0-71.0); RED BLOOD CELL COUNT 4.92 M/mm3 (4.10-5.30)
[2023-03-11 09:09] LABS: HEMOGLOBIN 15.5 gm/dl (12.0-16.0); PLATELET COUNT,PLT 259 K/mm3 (150-400)
[2023-03-11] MEDS ORDERED: Thiamine 200 MG/2 ML MDV IVPUSH ONE (09:20)
[2023-03-11 09:23] LABS: PROTHROMBIN TIME 10.7 SECONDS (9.7-12.0)
[2023-03-11 09:24] LABS: PTT,PARTIAL THROMBOPLSTIN TIME 27.1 SECONDS (21.7-31.4)
[2023-03-11 09:36] LABS: A/G RATIO 0.9 (1-2); ALANINE AMINOTRANSFERASE,ALT 72 U/L (14-59); ALBUMIN 3.5 g/dl (3.4-5.0); ALKALINE PHOSPHATASE 130 U/L (46-116); ANION GAP 14.2 (5-15); ASPARTATE AMNIOTRANSFERASE,AST 89 U/L (15-37); BILIRUBIN TOTAL 0.8 mg/dL (0.2-1.0); BLOOD UREA NITROGEN,BUN 19 mg/dL (7-18); BUN/CREATININE RATIO 21.1 (14-18); C-REACTIVE PROTEIN <0.2 mg/dL (<1.0); CALCIUM 9.6 mg/dL (8.5-10.1); CARBON DIOXIDE,CO2 25 mEq/L (21-32); CHLORIDE,CL 102 mEq/L (98-107); CREATININE 0.9 mg/dL (0.55-1.02); EST CRCL DRUG DOSING (CG) 66.26 mL/min; ESTIMATED GFR 74 mL/min (>60); GLUCOSE RANDOM 115 mg/dL (70-99); MAGNESIUM 1.8 mg/dL (1.8-2.4); POTASSIUM,K 4.2 mEq/L (3.5-5.1); PROTEIN TOTAL,TP 7.5 g/dl (6.4-8.2); SODIUM,NA 137 mEq/L (136-145)
[2023-03-11] MEDS ORDERED: Ondansetron 4 MG/2 ML SDV IVPUSH ONE (12:21)
[2023-03-11 13:15] LABS: APPEARANCE,URINE CLEAR (Clear); BILIRUBIN,URINE NEGATIVE (Negative); COLOR,URINE YELLOW (Yellow); GLUCOSE,URINE NEGATIVE (Negative); KETONES,URINE NEGATIVE (Negative); LEUKOCYTE ESTERASE,URINE NEGATIVE (Negative); NITRITE,URINE POSITIVE (Negative); OCCULT BLOOD,URINE NEGATIVE (Negative); PH,URINE 5.5 (5.0-8.0); PROTEIN,URINE NEGATIVE (Negative); UROBILINOGEN,URINE 0.2 (0.2-1.0)
[2023-03-11 13:20] LABS: BACTERIA,URINE MODERATE /hpf (FEW); MUCUS,URINE FEW /hpf (FEW); RBC,URINE 0-5 /hpf (0-5); WBC,URINE 0-5 /hpf (0-5)
[2023-03-11 15:45] VITALS: BP 112/72; PULSE 77
== END 2023-03-11 14:20 | disposition home or self-care (01) ==
LOC: JD.ED 08:41
DX: F10.231 Alcohol dependence with withdrawal delirium (principal); G43.909 Migraine, unspecified, not intractable, without status migrainosus; T50.905A Adverse effect of unspecified drugs, medicaments and biological substances, initial encounter; I10 Essential (primary) hypertension; E03.9 Hypothyroidism, unspecified; Z88.0 Allergy status to penicillin; Z88.2 Allergy status to sulfonamides; Z88.5 Allergy status to narcotic agent; Z88.8 Allergy status to other drugs, medicaments and biological substances; Z79.899 Other long term (current) drug therapy; Z90.49 Acquired absence of other specified parts of digestive tract; Z90.710 Acquired absence of both cervix and uterus
CPT/HCPCS: 36415; 70450; 70496; 70498; 80053; 80307; 81001; 82947; 83735; 83880; 84443; 85025; 85610; 85730; 86140; 93005; 96361; 96374; 96375; 96376; 99285; J1170; J1200; J2060; J2405; J2765; J3411; J7121; 93010; 99284

== ENCOUNTER 2023-03-12 07:58 | Emergency (ER) | payer MEDICAID ==
[2023-03-12] MEDS ORDERED: Ondansetron 4 MG/2 ML SDV IVPUSH ONE (08:16)
[2023-03-12] MEDS ORDERED: LORazepam 1 MG Tab PO ONE ×2 (08:17→09:51)
[2023-03-12] MEDS ORDERED: Ondansetron 4 MG Tab.DIS PO ONE (08:19)
[2023-03-12 08:50] LABS: BASOPHILS ABSOLUTE AUTO 0.1 K/mm3 (0.0-0.2); BASOPHILS PERCENT AUTO 1.2 % (0.0-1.0); EOSINOPHILS ABSOLUTE AUTO 0.3 K/mm3 (0.0-0.4); EOSINOPHILS PERCENT AUTO 5.7 % (0.0-6.0); HEMATOCRIT 43.1 % (37.0-47.0); HEMOGLOBIN 14.3 gm/dl (12.0-16.0); IMMATURE GRAN ABSOLUTE AUTO 0.02 K/mm3 (0.00-0.05); IMMATURE GRAN PERCENT AUTO 0.4 % (0.0-0.4); LYMPHOCYTES ABSOLUTE AUTO 1.5 K/mm3 (1.0-4.8); LYMPHOCYTES PERCENT AUTO 29.1 % (24.0-44.0); MEAN CORPUSCULAR HEMOGLOBIN 31.3 pg (28.0-32.0); MEAN CORPUSCULAR HGB CONC 33.2 g/dl (32.0-36.0); MEAN CORPUSCULAR VOLUME 94.3 fl (83.0-99.0); MEAN PLATELET VOLUME 10.2 fl (9.4-12.3); MONOCYTES ABSOLUTE AUTO 0.5 K/mm3 (0.0-0.8); MONOCYTES PERCENT AUTO 9.1 % (0.0-8.0); NEUTROPHILS ABSOLUTE AUTO 2.8 K/mm3 (1.8-7.7); NEUTROPHILS PERCENT AUTO 54.5 % (41.0-71.0); PLATELET COUNT,PLT 255 K/mm3 (150-400); RED BLOOD CELL COUNT 4.57 M/mm3 (4.10-5.30); WHITE BLOOD CELL COUNT,WBC 5.05 K/mm3 (3.9-11.3)
[2023-03-12 09:05] VITALS: PULSE 85
[2023-03-12 09:22] LABS: A/G RATIO 0.9 (1-2); ALBUMIN 3.5 g/dl (3.4-5.0); ANION GAP 11.3 (5-15); BILIRUBIN TOTAL 0.5 mg/dL (0.2-1.0); BUN/CREATININE RATIO 21.3 (14-18); CALCIUM 9.6 mg/dL (8.5-10.1); CREATININE 0.8 mg/dL (0.55-1.02); EST CRCL DRUG DOSING (CG) 68.97 mL/min; POTASSIUM,K 4.3 mEq/L (3.5-5.1); PROTEIN TOTAL,TP 7.3 g/dl (6.4-8.2)
[2023-03-12] MEDS ORDERED: Metoclopramide 10 MG Tab PO ONE (09:52)
[2023-03-12 10:05] VITALS: BP 133/97
== END 2023-03-12 10:22 | disposition home or self-care (01) ==
LOC: JD.ED 07:58
DX: F10.230 Alcohol dependence with withdrawal, uncomplicated (principal); I10 Essential (primary) hypertension; K21.9 Gastro-esophageal reflux disease without esophagitis; E03.9 Hypothyroidism, unspecified; E66.9 Obesity, unspecified; Z79.899 Other long term (current) drug therapy; Z88.0 Allergy status to penicillin; Z88.5 Allergy status to narcotic agent; Z88.8 Allergy status to other drugs, medicaments and biological substances; Z88.2 Allergy status to sulfonamides
CPT/HCPCS: 36415; 80053; 80307; 83690; 85025; 99285; A9270; 99284

== ENCOUNTER 2023-03-13 15:27 | Emergency (ER) | payer MEDICAID ==
[2023-03-13] MEDS ORDERED: LORazepam 1 MG Tab PO ONE (16:01)
[2023-03-13 16:31] LABS: BASOPHILS ABSOLUTE AUTO 0.1 K/mm3 (0.0-0.2); EOSINOPHILS ABSOLUTE AUTO 0.3 K/mm3 (0.0-0.4); EOSINOPHILS PERCENT AUTO 4.4 % (0.0-6.0); HEMATOCRIT 44.7 % (37.0-47.0); HEMOGLOBIN 14.4 gm/dl (12.0-16.0); IMMATURE GRAN ABSOLUTE AUTO 0.01 K/mm3 (0.00-0.05); IMMATURE GRAN PERCENT AUTO 0.2 % (0.0-0.4); LYMPHOCYTES ABSOLUTE AUTO 1.7 K/mm3 (1.0-4.8); LYMPHOCYTES PERCENT AUTO 29.4 % (24.0-44.0); MEAN CORPUSCULAR HEMOGLOBIN 31.4 pg (28.0-32.0); MEAN CORPUSCULAR HGB CONC 32.2 g/dl (32.0-36.0); MEAN CORPUSCULAR VOLUME 97.6 fl (83.0-99.0); MEAN PLATELET VOLUME 10.3 fl (9.4-12.3); MONOCYTES ABSOLUTE AUTO 0.6 K/mm3 (0.0-0.8); MONOCYTES PERCENT AUTO 9.7 % (0.0-8.0); NEUTROPHILS ABSOLUTE AUTO 3.2 K/mm3 (1.8-7.7); NEUTROPHILS PERCENT AUTO 55.3 % (41.0-71.0); PLATELET COUNT,PLT 285 K/mm3 (150-400); RED BLOOD CELL COUNT 4.58 M/mm3 (4.10-5.30); WHITE BLOOD CELL COUNT,WBC 5.85 K/mm3 (3.9-11.3)
[2023-03-13] MEDS ORDERED: Alum Hydrox/Mag Hydrox/Simeth 30 ML, Lidocaine 2% 15 ML PO ONE ×2 (16:36)
[2023-03-13 16:54] LABS: ALANINE AMINOTRANSFERASE,ALT 68 U/L (14-59); ALBUMIN 3.6 g/dl (3.4-5.0); ALKALINE PHOSPHATASE 132 U/L (46-116); ANION GAP 11.3 (5-15); ASPARTATE AMNIOTRANSFERASE,AST 55 U/L (15-37); BILIRUBIN TOTAL 0.3 mg/dL (0.2-1.0); BLOOD UREA NITROGEN,BUN 19 mg/dL (7-18); BUN/CREATININE RATIO 23.8 (14-18); C-REACTIVE PROTEIN <0.2 mg/dL (<1.0); CALCIUM 9.6 mg/dL (8.5-10.1); CARBON DIOXIDE,CO2 29 mEq/L (21-32); CHLORIDE,CL 103 mEq/L (98-107); CREATININE 0.8 mg/dL (0.55-1.02); EST CRCL DRUG DOSING (CG) 63.41 mL/min; ESTIMATED GFR 85 mL/min (>60); GLUCOSE RANDOM 96 mg/dL (70-99); POTASSIUM,K 4.3 mEq/L (3.5-5.1); PROTEIN TOTAL,TP 7.4 g/dl (6.4-8.2); SODIUM,NA 139 mEq/L (136-145)
[2023-03-13 18:15] VITALS: BP 142/99; PULSE 65
== END 2023-03-13 18:15 | disposition home or self-care (01) ==
LOC: JD.ED 15:27
DX: R10.11 Right upper quadrant pain (principal); F10.10 Alcohol abuse, uncomplicated; R74.01 Elevation of levels of liver transaminase levels; I10 Essential (primary) hypertension; E78.00 Pure hypercholesterolemia, unspecified; K21.9 Gastro-esophageal reflux disease without esophagitis; E03.9 Hypothyroidism, unspecified; E66.9 Obesity, unspecified; Z79.899 Other long term (current) drug therapy; Z90.49 Acquired absence of other specified parts of digestive tract; Z90.710 Acquired absence of both cervix and uterus; Z87.891 Personal history of nicotine dependence; Z88.8 Allergy status to other drugs, medicaments and biological substances; Z88.0 Allergy status to penicillin; Z88.2 Allergy status to sulfonamides; Z88.6 Allergy status to analgesic agent; Z68.36 Body mass index [BMI] 36.0-36.9, adult
CPT/HCPCS: 36415; 80053; 84484; 85025; 86140; 93005; 99284; A9270

== ENCOUNTER 2023-03-14 12:51 | Emergency (ER) | payer MEDICAID ==
[2023-03-14] MEDS ORDERED: Aspirin 81 MG Tab.Chew PO ONE (13:17)
[2023-03-14] MEDS ORDERED: Famotidine 20 MG Tab PO ONE (13:17)
[2023-03-14 13:55] LABS: BASOPHILS PERCENT AUTO 0.6 % (0.0-1.0); EOSINOPHILS ABSOLUTE AUTO 0.2 K/mm3 (0.0-0.4); EOSINOPHILS PERCENT AUTO 3.7 % (0.0-6.0); HEMATOCRIT 46.1 % (37.0-47.0); HEMOGLOBIN 15.2 gm/dl (12.0-16.0); IMMATURE GRAN ABSOLUTE AUTO 0.02 K/mm3 (0.00-0.05); IMMATURE GRAN PERCENT AUTO 0.3 % (0.0-0.4); LYMPHOCYTES ABSOLUTE AUTO 1.9 K/mm3 (1.0-4.8); LYMPHOCYTES PERCENT AUTO 29.7 % (24.0-44.0); MEAN CORPUSCULAR HEMOGLOBIN 31.3 pg (28.0-32.0); MEAN CORPUSCULAR VOLUME 94.9 fl (83.0-99.0); MEAN PLATELET VOLUME 10.3 fl (9.4-12.3); MONOCYTES ABSOLUTE AUTO 0.6 K/mm3 (0.0-0.8); MONOCYTES PERCENT AUTO 9.8 % (0.0-8.0); NEUTROPHILS ABSOLUTE AUTO 3.5 K/mm3 (1.8-7.7); NEUTROPHILS PERCENT AUTO 55.9 % (41.0-71.0); PLATELET COUNT,PLT 282 K/mm3 (150-400); RED BLOOD CELL COUNT 4.86 M/mm3 (4.10-5.30); WHITE BLOOD CELL COUNT,WBC 6.22 K/mm3 (3.9-11.3)
[2023-03-14] MEDS ORDERED: Morphine 4 MG/ML Syringe IM ONE (14:29)
[2023-03-14 14:39] LABS: A/G RATIO 0.9 (1-2); ALANINE AMINOTRANSFERASE,ALT 73 U/L (14-59); ALBUMIN 3.6 g/dl (3.4-5.0); ALKALINE PHOSPHATASE 122 U/L (46-116); ANION GAP 13.4 (5-15); ASPARTATE AMNIOTRANSFERASE,AST 55 U/L (15-37); BILIRUBIN TOTAL 0.4 mg/dL (0.2-1.0); BLOOD UREA NITROGEN,BUN 18 mg/dL (7-18); CALCIUM 9.4 mg/dL (8.5-10.1); CARBON DIOXIDE,CO2 25 mEq/L (21-32); CHLORIDE,CL 103 mEq/L (98-107); CREATININE 0.9 mg/dL (0.55-1.02); EST CRCL DRUG DOSING (CG) 61.31 mL/min; ESTIMATED GFR 74 mL/min (>60); GLUCOSE RANDOM 104 mg/dL (70-99); PROTEIN TOTAL,TP 7.6 g/dl (6.4-8.2); SODIUM,NA 137 mEq/L (136-145); TROPONIN I HIGH SENSITIVITY < 4 pg/mL (<=51)
[2023-03-14 14:40] LABS: POTASSIUM,K 4.4 mEq/L (3.5-5.1)
[2023-03-14] MEDS ORDERED: Morphine 2 MG/ML SYRINGE IM ONE (15:33)
[2023-03-14 16:14] VITALS: BP 140/102; PULSE 88
== END 2023-03-14 16:25 | disposition home or self-care (01) ==
LOC: JD.ED 12:51
DX: R07.89 Other chest pain (principal); K21.9 Gastro-esophageal reflux disease without esophagitis; I10 Essential (primary) hypertension; E03.9 Hypothyroidism, unspecified; E66.9 Obesity, unspecified; Z68.34 Body mass index [BMI] 34.0-34.9, adult; Z88.0 Allergy status to penicillin; Z88.1 Allergy status to other antibiotic agents; Z88.2 Allergy status to sulfonamides; Z88.5 Allergy status to narcotic agent; Z88.8 Allergy status to other drugs, medicaments and biological substances; Z79.899 Other long term (current) drug therapy; Z90.49 Acquired absence of other specified parts of digestive tract; Z90.710 Acquired absence of both cervix and uterus
CPT/HCPCS: 36415; 71046; 80053; 84484; 85025; 93005; 96372; 99285; A9270; J2270; 93010; 99283

== ENCOUNTER 2023-03-16 16:00 | Emergency (ER) | payer MEDICAID ==
[2023-03-16] MEDS ORDERED: Activated Charcoal/Water Susp 50 GM/240 ML Tube PO ONE (17:26)
[2023-03-16 18:03] LABS: BASOPHILS ABSOLUTE AUTO 0.1 K/mm3 (0.0-0.2); BASOPHILS PERCENT AUTO 0.7 % (0.0-1.0); EOSINOPHILS ABSOLUTE AUTO 0.3 K/mm3 (0.0-0.4); EOSINOPHILS PERCENT AUTO 3.9 % (0.0-6.0); HEMATOCRIT 40.4 % (37.0-47.0); HEMOGLOBIN 13.4 gm/dl (12.0-16.0); IMMATURE GRAN ABSOLUTE AUTO 0.03 K/mm3 (0.00-0.05); IMMATURE GRAN PERCENT AUTO 0.4 % (0.0-0.4); LYMPHOCYTES PERCENT AUTO 29.5 % (24.0-44.0); MEAN CORPUSCULAR HEMOGLOBIN 31.2 pg (28.0-32.0); MEAN CORPUSCULAR HGB CONC 33.2 g/dl (32.0-36.0); MEAN CORPUSCULAR VOLUME 94.2 fl (83.0-99.0); MEAN PLATELET VOLUME 10.8 fl (9.4-12.3); MONOCYTES ABSOLUTE AUTO 0.5 K/mm3 (0.0-0.8); MONOCYTES PERCENT AUTO 7.1 % (0.0-8.0); NEUTROPHILS ABSOLUTE AUTO 3.9 K/mm3 (1.8-7.7); NEUTROPHILS PERCENT AUTO 58.4 % (41.0-71.0); PLATELET COUNT,PLT 272 K/mm3 (150-400); RED BLOOD CELL COUNT 4.29 M/mm3 (4.10-5.30); WHITE BLOOD CELL COUNT,WBC 6.72 K/mm3 (3.9-11.3)
[2023-03-16 18:26] LABS: INR 0.99; PROTHROMBIN TIME 10.6 SECONDS (9.7-12.0)
[2023-03-16 18:37] LABS: ALBUMIN 3.5 g/dl (3.4-5.0); ANION GAP 18.5 (5-15); BILIRUBIN TOTAL 0.2 mg/dL (0.2-1.0); BUN/CREATININE RATIO 18.8 (14-18); CREATININE 0.8 mg/dL (0.55-1.02); EST CRCL DRUG DOSING (CG) 68.97 mL/min; ETHANOL BLOOD MEDICAL 0.07 gm% (0.00); POTASSIUM,K 3.5 mEq/L (3.5-5.1); PROTEIN TOTAL,TP 7.2 g/dl (6.4-8.2)
[2023-03-16 20:14] LABS: TSH 15.264 uIU/mL (0.358-3.74)
[2023-03-16 21:42] VITALS: BP 108/83; PULSE 71
== END 2023-03-16 21:40 | disposition home or self-care (01) ==
LOC: JD.ED 16:00
DX: F10.129 Alcohol abuse with intoxication, unspecified (principal); R94.6 Abnormal results of thyroid function studies; I10 Essential (primary) hypertension; E78.00 Pure hypercholesterolemia, unspecified; K21.9 Gastro-esophageal reflux disease without esophagitis; Z76.5 Malingerer [conscious simulation]; Z79.899 Other long term (current) drug therapy; Z88.0 Allergy status to penicillin; Y90.2 Blood alcohol level of 40-59 mg/100 ml; Z88.2 Allergy status to sulfonamides; Z88.5 Allergy status to narcotic agent; Z88.6 Allergy status to analgesic agent
CPT/HCPCS: 36415; 80053; 80143; 80179; 80307; 84443; 85025; 85610; 93005; 99285; A9270; 93010; 99282

== ENCOUNTER 2023-03-17 10:34 | Emergency (ER) | payer MEDICAID ==
[2023-03-17] MEDS ORDERED: LORazepam 1 MG Tab PO ONE (11:07)
[2023-03-17 11:32] LABS: BASOPHILS PERCENT AUTO 0.4 % (0.0-1.0); EOSINOPHILS ABSOLUTE AUTO 0.1 K/mm3 (0.0-0.4); EOSINOPHILS PERCENT AUTO 1.8 % (0.0-6.0); HEMATOCRIT 41.8 % (37.0-47.0); HEMOGLOBIN 14.1 gm/dl (12.0-16.0); IMMATURE GRAN ABSOLUTE AUTO 0.02 K/mm3 (0.00-0.05); IMMATURE GRAN PERCENT AUTO 0.3 % (0.0-0.4); LYMPHOCYTES ABSOLUTE AUTO 1.8 K/mm3 (1.0-4.8); LYMPHOCYTES PERCENT AUTO 24.4 % (24.0-44.0); MEAN CORPUSCULAR HEMOGLOBIN 31.5 pg (28.0-32.0); MEAN CORPUSCULAR HGB CONC 33.7 g/dl (32.0-36.0); MEAN CORPUSCULAR VOLUME 93.5 fl (83.0-99.0); MEAN PLATELET VOLUME 10.5 fl (9.4-12.3); MONOCYTES ABSOLUTE AUTO 0.5 K/mm3 (0.0-0.8); MONOCYTES PERCENT AUTO 6.4 % (0.0-8.0); NEUTROPHILS ABSOLUTE AUTO 4.9 K/mm3 (1.8-7.7); NEUTROPHILS PERCENT AUTO 66.7 % (41.0-71.0); PLATELET COUNT,PLT 237 K/mm3 (150-400); RED BLOOD CELL COUNT 4.47 M/mm3 (4.10-5.30)
[2023-03-17 12:01] LABS: ALBUMIN 3.6 g/dl (3.4-5.0); ANION GAP 16.8 (5-15); BILIRUBIN TOTAL 0.5 mg/dL (0.2-1.0); BUN/CREATININE RATIO 15.7 (14-18); CALCIUM 9.4 mg/dL (8.5-10.1); CREATININE 0.7 mg/dL (0.55-1.02); EST CRCL DRUG DOSING (CG) 78.83 mL/min; ETHANOL BLOOD MEDICAL 0.03 gm% (0.00); POTASSIUM,K 3.8 mEq/L (3.5-5.1); PROTEIN TOTAL,TP 7.3 g/dl (6.4-8.2); TSH 2.597 uIU/mL (0.358-3.74)
[2023-03-17 14:16] LABS: BARBITURATE SCREEN,URINE NEGATIVE (CUTOFF=200); BENZODIAZEPINES SCREEN,URINE PRESUMPTIVE POSITIVE (CUTOFF=150); BUPRENORPHINE SCREEN,URINE NEGATIVE (CUTOFF=10); METHADONE SCREEN, URINE NEGATIVE (CUTOFF=200); METHAMPHETAMINES SCREEN, URINE NEGATIVE (CUTOFF=500); OXYCODONE SCREEN,URINE NEGATIVE (CUT0FF=100); THC SCREEN,URINE 20 NG/ML NEGATIVE (CUTOFF=50)
[2023-03-17 14:17] LABS: AMPHETAMINES SCREEN, URINE NEGATIVE (CUTOFF=500)
[2023-03-17] MEDS ORDERED: Acetaminophen 325 MG Tab PO ONE (17:38)
[2023-03-17 18:36] VITALS: BP 113/91; PULSE 77
== END 2023-03-17 18:41 ==
LOC: JD.ED 10:34
DX: R45.851 Suicidal ideations (principal); F32.89 Other specified depressive episodes; I10 Essential (primary) hypertension; E78.00 Pure hypercholesterolemia, unspecified; E03.9 Hypothyroidism, unspecified; E66.9 Obesity, unspecified; Z90.49 Acquired absence of other specified parts of digestive tract; Z90.710 Acquired absence of both cervix and uterus; Z79.899 Other long term (current) drug therapy; Z88.0 Allergy status to penicillin; Z88.2 Allergy status to sulfonamides; Z88.6 Allergy status to analgesic agent; Z88.8 Allergy status to other drugs, medicaments and biological substances; Z88.5 Allergy status to narcotic agent; Z68.34 Body mass index [BMI] 34.0-34.9, adult
CPT/HCPCS: 36415; 80053; 80143; 80179; 80306; 80307; 84443; 85025; 99284; A9270; 93010

== ENCOUNTER 2023-03-18 12:04 | Emergency (ER) | payer MEDICAID ==
[2023-03-18] MEDS ORDERED: Sodium Chloride 0.9% 10 ML Syringe FLUSH PRN (13:32)
[2023-03-18] MEDS ORDERED: LORazepam 1 MG Tab PO ONE (14:02)
[2023-03-18] MEDS ORDERED: Acetaminophen 325 MG Tab PO ONE (14:04)
[2023-03-18 14:11] LABS: BASOPHILS ABSOLUTE AUTO 0.1 K/mm3 (0.0-0.2); BASOPHILS PERCENT AUTO 0.9 % (0.0-1.0); EOSINOPHILS ABSOLUTE AUTO 0.3 K/mm3 (0.0-0.4); EOSINOPHILS PERCENT AUTO 4.4 % (0.0-6.0); HEMATOCRIT 42.4 % (37.0-47.0); HEMOGLOBIN 14.1 gm/dl (12.0-16.0); IMMATURE GRAN ABSOLUTE AUTO 0.01 K/mm3 (0.00-0.05); IMMATURE GRAN PERCENT AUTO 0.1 % (0.0-0.4); LYMPHOCYTES ABSOLUTE AUTO 2.3 K/mm3 (1.0-4.8); LYMPHOCYTES PERCENT AUTO 33.3 % (24.0-44.0); MEAN CORPUSCULAR HEMOGLOBIN 31.4 pg (28.0-32.0); MEAN CORPUSCULAR HGB CONC 33.3 g/dl (32.0-36.0); MEAN CORPUSCULAR VOLUME 94.4 fl (83.0-99.0); MEAN PLATELET VOLUME 10.1 fl (9.4-12.3); MONOCYTES ABSOLUTE AUTO 0.5 K/mm3 (0.0-0.8); MONOCYTES PERCENT AUTO 7.5 % (0.0-8.0); NEUTROPHILS ABSOLUTE AUTO 3.7 K/mm3 (1.8-7.7); NEUTROPHILS PERCENT AUTO 53.8 % (41.0-71.0); PLATELET COUNT,PLT 307 K/mm3 (150-400); RED BLOOD CELL COUNT 4.49 M/mm3 (4.10-5.30); WHITE BLOOD CELL COUNT,WBC 6.79 K/mm3 (3.9-11.3)
[2023-03-18 14:33] LABS: A/G RATIO 1.1 (1-2); ALANINE AMINOTRANSFERASE,ALT 50 U/L (14-59); ALBUMIN 3.8 g/dl (3.4-5.0); ALKALINE PHOSPHATASE 113 U/L (46-116); ANION GAP 13.6 (5-15); ASPARTATE AMNIOTRANSFERASE,AST 25 U/L (15-37); BILIRUBIN TOTAL 0.3 mg/dL (0.2-1.0); BLOOD UREA NITROGEN,BUN 14 mg/dL (7-18); BUN/CREATININE RATIO 15.6 (14-18); CARBON DIOXIDE,CO2 26 mEq/L (21-32); CHLORIDE,CL 102 mEq/L (98-107); CREATININE 0.9 mg/dL (0.55-1.02); ESTIMATED GFR 74 mL/min (>60); GLUCOSE RANDOM 106 mg/dL (70-99); POTASSIUM,K 3.6 mEq/L (3.5-5.1); PROTEIN TOTAL,TP 7.3 g/dl (6.4-8.2); SODIUM,NA 138 mEq/L (136-145)
[2023-03-18 14:53] LABS: APPEARANCE,URINE SLT CLOUDY (Clear); BILIRUBIN,URINE NEGATIVE (Negative); COLOR,URINE YELLOW (Yellow); GLUCOSE,URINE NEGATIVE (Negative); KETONES,URINE NEGATIVE (Negative); LEUKOCYTE ESTERASE,URINE NEGATIVE (Negative); NITRITE,URINE POSITIVE (Negative); OCCULT BLOOD,URINE NEGATIVE (Negative); PH,URINE 5.5 (5.0-8.0); PROTEIN,URINE NEGATIVE (Negative); UROBILINOGEN,URINE 0.2 (0.2-1.0)
[2023-03-18 15:00] LABS: BARBITURATE SCREEN,URINE NEGATIVE (CUTOFF=200); BENZODIAZEPINES SCREEN,URINE PRESUMPTIVE POSITIVE (CUTOFF=150); BUPRENORPHINE SCREEN,URINE NEGATIVE (CUTOFF=10); METHADONE SCREEN, URINE NEGATIVE (CUTOFF=200); METHAMPHETAMINES SCREEN, URINE NEGATIVE (CUTOFF=500); OXYCODONE SCREEN,URINE NEGATIVE (CUT0FF=100); THC SCREEN,URINE 20 NG/ML NEGATIVE (CUTOFF=50)
[2023-03-18 15:03] LABS: AMPHETAMINES SCREEN, URINE NEGATIVE (CUTOFF=500); BACTERIA,URINE MANY /hpf (FEW); MUCUS,URINE FEW /hpf (FEW); RBC,URINE 0-5 /hpf (0-5)
[2023-03-18 15:42] VITALS: BP 138/96; PULSE 85
== END 2023-03-18 15:35 | disposition home or self-care (01) ==
LOC: JD.ED 12:04
DX: G44.1 Vascular headache, not elsewhere classified (principal); I10 Essential (primary) hypertension; K21.9 Gastro-esophageal reflux disease without esophagitis; E03.9 Hypothyroidism, unspecified; E66.9 Obesity, unspecified; Z88.8 Allergy status to other drugs, medicaments and biological substances; Z88.5 Allergy status to narcotic agent; Z88.0 Allergy status to penicillin; Z88.2 Allergy status to sulfonamides; Z79.899 Other long term (current) drug therapy
CPT/HCPCS: 36415; 80053; 80306; 80307; 81001; 83605; 85025; 87086; 87088; 87186; 93005; 99285; A9270; 93010; 99284

== ENCOUNTER 2023-04-24 13:03 | Emergency (ER) | payer MEDICAID ==
[2023-04-24 13:25] VITALS: BP 119/96; PULSE 77
[2023-04-24 14:22] LABS: CORONAVIRUS COVID-19 NAA POSITIVE (NEGATIVE); INFLUENZA A NAA NEGATIVE (NEGATIVE); RESPIRATORY SYNCYTIAL VIR NAA NEGATIVE (NEGATIVE)
== END 2023-04-24 14:00 | disposition left against medical advice (07) ==
LOC: JD.ED 13:03
DX: Z53.21 Procedure and treatment not carried out due to patient leaving prior to being seen by health care provider (principal)
CPT/HCPCS: 0241U

== ENCOUNTER 2023-05-13 14:50 | Day surgery (SDC) | payer MEDICAID ==
[2023-05-13] MEDS ORDERED: Sodium Chloride 0.9% 10 ML Syringe FLUSH PRN (15:03)
[2023-05-13] MEDS ORDERED: Lactated Ringers 1,000 ML IV SCH (15:15)
[2023-05-13] MEDS: Glucagon,Human Recombinant 1 MG Vial IVPUSH ONE (15:20)
[2023-05-13] MEDS: LORazepam 2 MG/ML SDV IVPUSH ONE (15:20)
[2023-05-13] MEDS: LORazepam 2 MG/ML SDV IM ONE (16:45)
[2023-05-13] MEDS: Glucagon,Human Recombinant 1 MG Vial IM ONE ×2 (16:46→16:50)
[2023-05-13] MEDS: HYDROmorphone 0.5 MG/0.5 ML Syringe IVPUSH ONE (18:42)
[2023-05-13] MEDS ORDERED: Succinylcholine 200 MG/10 ML MDV ONE (19:08)
[2023-05-13] MEDS ORDERED: Propofol 200 MG/20 ML SDV ONE (19:09)
[2023-05-13] MEDS ORDERED: fentaNYL 250 MCG/5 ML SDV ONE (19:09)
[2023-05-13] MEDS ORDERED: Lidocaine 1% 4 ML ONE (19:15)
[2023-05-13] MEDS ORDERED: Midazolam 1 MG/ML 2 ML SDV ONE (19:17)
[2023-05-13] MEDS ORDERED: Rocuronium 50 MG/5 ML Vial ONE (19:19)
[2023-05-13] MEDS ORDERED: Ondansetron 4 MG/2 ML SDV ONE (19:31)
[2023-05-13] MEDS ORDERED: Lidocaine 1% 2 ML ONE (19:33)
[2023-05-13] MEDS ORDERED: Lactated Ringers 1,000 ML ONE (19:34)
[2023-05-13] MEDS ORDERED: dexmedeTOMIDine HCl 200 MCG/2 ML SDV ONE (20:04)
[2023-05-13 20:40] VITALS: BP 120/82; PULSE 88
== END 2023-05-13 21:10 | disposition home or self-care (01) ==
LOC: JD.ED 14:50 → JD.SDS 18:24
PROVIDERS: ATTEND Surgery
DX: K29.80 Duodenitis without bleeding (principal); B37.81 Candidal esophagitis; K31.89 Other diseases of stomach and duodenum; K21.9 Gastro-esophageal reflux disease without esophagitis; T18.108A Unspecified foreign body in esophagus causing other injury, initial encounter; I10 Essential (primary) hypertension; E03.9 Hypothyroidism, unspecified; E78.00 Pure hypercholesterolemia, unspecified; F32.A Depression, unspecified; Z79.890 Hormone replacement therapy; Z79.899 Other long term (current) drug therapy
CPT/HCPCS: 43239; 71045; 96372; 96374; 99285; J0330; J1170; J1610; J2060; J2250; J2405; J2704; J3010; J7120; 00731; 36410; J3490

== ENCOUNTER 2023-06-11 11:39 | Emergency (ER) | payer MEDICAID, OTHER ==
[2023-06-11] MEDS: Ondansetron 4 MG Tab.DIS PO ONE (12:26)
[2023-06-11 12:32] VITALS: PULSE 68
[2023-06-11 12:56] LABS: BASOPHILS PERCENT AUTO 0.6 % (0.0-1.0); EOSINOPHILS ABSOLUTE AUTO 0.3 K/mm3 (0.0-0.4); EOSINOPHILS PERCENT AUTO 6.1 % (0.0-6.0); HEMATOCRIT 40.4 % (37.0-47.0); IMMATURE GRAN ABSOLUTE AUTO 0.01 K/mm3 (0.00-0.05); IMMATURE GRAN PERCENT AUTO 0.2 % (0.0-0.4); LYMPHOCYTES ABSOLUTE AUTO 2.1 K/mm3 (1.0-4.8); LYMPHOCYTES PERCENT AUTO 40.6 % (24.0-44.0); MEAN CORPUSCULAR HEMOGLOBIN 31.3 pg (28.0-32.0); MEAN CORPUSCULAR HGB CONC 32.2 g/dl (32.0-36.0); MEAN CORPUSCULAR VOLUME 97.1 fl (83.0-99.0); MONOCYTES ABSOLUTE AUTO 0.4 K/mm3 (0.0-0.8); MONOCYTES PERCENT AUTO 7.9 % (0.0-8.0); NEUTROPHILS ABSOLUTE AUTO 2.3 K/mm3 (1.8-7.7); NEUTROPHILS PERCENT AUTO 44.6 % (41.0-71.0); PLATELET COUNT,PLT 203 K/mm3 (150-400); RED BLOOD CELL COUNT 4.16 M/mm3 (4.10-5.30); WHITE BLOOD CELL COUNT,WBC 5.05 K/mm3 (3.9-11.3)
[2023-06-11] MEDS: Sodium Chloride 0.9% 10 ML Syringe FLUSH PRN ×2 (13:08→14:19)
[2023-06-11 13:20] LABS: SLIDE REVIEW ABNORMAL SMEAR
[2023-06-11 13:22] LABS: ALBUMIN 3.4 g/dl (3.4-5.0); ANION GAP 14.2 (5-15); BILIRUBIN TOTAL 0.2 mg/dL (0.2-1.0); BUN/CREATININE RATIO 11.4 (14-18); CALCIUM 8.5 mg/dL (8.5-10.1); CREATININE 0.7 mg/dL (0.55-1.02); EST CRCL DRUG DOSING (CG) 72.47 mL/min; ETHANOL BLOOD MEDICAL 0.02 gm% (0.00); POTASSIUM,K 3.2 mEq/L (3.5-5.1); PROTEIN TOTAL,TP 6.7 g/dl (6.4-8.2)
[2023-06-11] MEDS: Lactated Ringers 1,000 ML IV SCH (13:26)
[2023-06-11] MEDS: Iopamidol 612 MG/ML 100 ML Bottle IVPUSH ONE (14:19)
[2023-06-11 15:48] VITALS: BP 160/88
== END 2023-06-11 15:06 | disposition home or self-care (01) ==
LOC: JD.ED 11:39
DX: S05.12XA Contusion of eyeball and orbital tissues, left eye, initial encounter (principal); R07.81 Pleurodynia; R10.10 Upper abdominal pain, unspecified; I10 Essential (primary) hypertension; E78.00 Pure hypercholesterolemia, unspecified; K21.9 Gastro-esophageal reflux disease without esophagitis; E03.9 Hypothyroidism, unspecified; E66.9 Obesity, unspecified; Z86.16 Personal history of COVID-19; Z79.899 Other long term (current) drug therapy; Z88.8 Allergy status to other drugs, medicaments and biological substances; Z88.5 Allergy status to narcotic agent; Z88.0 Allergy status to penicillin; Z88.2 Allergy status to sulfonamides; Z68.36 Body mass index [BMI] 36.0-36.9, adult; V47.5XXA Car driver injured in collision with fixed or stationary object in traffic accident, initial encounter; Y92.410 Unspecified street and highway as the place of occurrence of the external cause
CPT/HCPCS: 36415; 71111; 74177; 80053; 80307; 84484; 85025; 93005; 96360; 99285; J3490; J7120; Q9967; 93010; 99284

== ENCOUNTER 2023-06-12 17:11 | Emergency (ER) | payer MEDICAID, OTHER ==
[2023-06-12 17:48] VITALS: BP 150/114; PULSE 68
[2023-06-12 18:15] LABS: BASOPHILS PERCENT AUTO 0.6 % (0.0-1.0); EOSINOPHILS ABSOLUTE AUTO 0.3 K/mm3 (0.0-0.4); EOSINOPHILS PERCENT AUTO 5.1 % (0.0-6.0); HEMATOCRIT 41.1 % (37.0-47.0); HEMOGLOBIN 13.5 gm/dl (12.0-16.0); LYMPHOCYTES ABSOLUTE AUTO 1.8 K/mm3 (1.0-4.8); LYMPHOCYTES PERCENT AUTO 36.4 % (24.0-44.0); MEAN CORPUSCULAR HEMOGLOBIN 31.3 pg (28.0-32.0); MEAN CORPUSCULAR HGB CONC 32.8 g/dl (32.0-36.0); MEAN CORPUSCULAR VOLUME 95.4 fl (83.0-99.0); MEAN PLATELET VOLUME 10.7 fl (9.4-12.3); MONOCYTES ABSOLUTE AUTO 0.3 K/mm3 (0.0-0.8); NEUTROPHILS ABSOLUTE AUTO 2.5 K/mm3 (1.8-7.7); NEUTROPHILS PERCENT AUTO 50.9 % (41.0-71.0); PLATELET COUNT,PLT 82 K/mm3 (150-400); RED BLOOD CELL COUNT 4.31 M/mm3 (4.10-5.30); WHITE BLOOD CELL COUNT,WBC 4.86 K/mm3 (3.9-11.3)
[2023-06-12 18:37] LABS: ALBUMIN 3.4 g/dl (3.4-5.0); ANION GAP 14.8 (5-15); BILIRUBIN TOTAL 0.2 mg/dL (0.2-1.0); BUN/CREATININE RATIO 12.9 (14-18); CALCIUM 8.7 mg/dL (8.5-10.1); CREATININE 0.7 mg/dL (0.55-1.02); EST CRCL DRUG DOSING (CG) 82.01 mL/min; ETHANOL BLOOD MEDICAL 0.07 gm% (0.00); POTASSIUM,K 3.8 mEq/L (3.5-5.1); PROTEIN TOTAL,TP 6.7 g/dl (6.4-8.2)
[2023-06-12] MEDS: Acetaminophen 325 MG Tab PO ONE (18:43)
== END 2023-06-12 19:15 | disposition home or self-care (01) ==
LOC: JD.ED 17:11
DX: R07.81 Pleurodynia (principal); F10.920 Alcohol use, unspecified with intoxication, uncomplicated; I10 Essential (primary) hypertension; K52.9 Noninfective gastroenteritis and colitis, unspecified; E78.00 Pure hypercholesterolemia, unspecified; E66.9 Obesity, unspecified; E03.9 Hypothyroidism, unspecified; Z68.32 Body mass index [BMI] 32.0-32.9, adult; Z88.0 Allergy status to penicillin; Z88.2 Allergy status to sulfonamides; Z88.5 Allergy status to narcotic agent; Z88.8 Allergy status to other drugs, medicaments and biological substances; Z79.899 Other long term (current) drug therapy; Z86.16 Personal history of COVID-19; Z90.49 Acquired absence of other specified parts of digestive tract; Z90.710 Acquired absence of both cervix and uterus
CPT/HCPCS: 36415; 80053; 80307; 84484; 85025; 93005; 93010; 99283; 99284

== ENCOUNTER 2023-06-13 08:58 | Emergency (ER) | payer MEDICAID, OTHER ==
[2023-06-13 09:10] VITALS: BP 123/84; PULSE 69
[2023-06-13 10:11] LABS: BASOPHILS PERCENT AUTO 0.6 % (0.0-1.0); EOSINOPHILS ABSOLUTE AUTO 0.3 K/mm3 (0.0-0.4); EOSINOPHILS PERCENT AUTO 3.7 % (0.0-6.0); HEMATOCRIT 43.3 % (37.0-47.0); IMMATURE GRAN ABSOLUTE AUTO 0.02 K/mm3 (0.00-0.05); IMMATURE GRAN PERCENT AUTO 0.3 % (0.0-0.4); LYMPHOCYTES ABSOLUTE AUTO 1.7 K/mm3 (1.0-4.8); LYMPHOCYTES PERCENT AUTO 25.2 % (24.0-44.0); MEAN CORPUSCULAR HEMOGLOBIN 30.7 pg (28.0-32.0); MEAN CORPUSCULAR HGB CONC 32.3 g/dl (32.0-36.0); MEAN PLATELET VOLUME 10.6 fl (9.4-12.3); MONOCYTES ABSOLUTE AUTO 0.5 K/mm3 (0.0-0.8); MONOCYTES PERCENT AUTO 6.9 % (0.0-8.0); NEUTROPHILS ABSOLUTE AUTO 4.3 K/mm3 (1.8-7.7); NEUTROPHILS PERCENT AUTO 63.3 % (41.0-71.0); PLATELET COUNT,PLT 271 K/mm3 (150-400); RED BLOOD CELL COUNT 4.56 M/mm3 (4.10-5.30); WHITE BLOOD CELL COUNT,WBC 6.71 K/mm3 (3.9-11.3)
[2023-06-13] MEDS: Dextrose 5%-0.9% NaCl 1,000 ML IV SCH (10:15)
[2023-06-13] MEDS: HYDROmorphone 1 MG/ML Syringe IVPUSH ONE (10:15)
[2023-06-13] MEDS: Promethazine 25 MG in Sodium Chloride 0.9% 50 ML IV ONE (10:15)
[2023-06-13 10:29] LABS: PROTHROMBIN TIME 10.7 SECONDS (9.7-12.0)
[2023-06-13 10:34] LABS: ALANINE AMINOTRANSFERASE,ALT 29 U/L (14-59); ALBUMIN 3.5 g/dl (3.4-5.0); ALKALINE PHOSPHATASE 114 U/L (46-116); ANION GAP 14.6 (5-15); ASPARTATE AMNIOTRANSFERASE,AST 19 U/L (15-37); BILIRUBIN TOTAL 0.5 mg/dL (0.2-1.0); BLOOD UREA NITROGEN,BUN 7 mg/dL (7-18); BUN/CREATININE RATIO 8.8 (14-18); C-REACTIVE PROTEIN 1.19 mg/dL (<0.30); CALCIUM 9.1 mg/dL (8.5-10.1); CARBON DIOXIDE,CO2 28 mEq/L (21-32); CHLORIDE,CL 103 mEq/L (98-107); CREATININE 0.8 mg/dL (0.55-1.02); ESTIMATED GFR 85 mL/min (>60); GLUCOSE RANDOM 99 mg/dL (70-99); LIPASE 25 U/L (16-77); MAGNESIUM 1.7 mg/dL (1.8-2.4); POTASSIUM,K 3.6 mEq/L (3.5-5.1); SODIUM,NA 142 mEq/L (136-145)
[2023-06-13] MEDS: Sodium Chloride 0.9% 10 ML Syringe FLUSH PRN (10:48)
[2023-06-13] MEDS: Iopamidol 612 MG/ML 30 ML SDV IV ONE (10:48)
[2023-06-13] MEDS: Iopamidol 612 MG/ML 100 ML Bottle IVPUSH ONE (10:48)
== END 2023-06-13 12:50 | disposition home or self-care (01) ==
LOC: JD.ED 08:58
DX: S20.213A Contusion of bilateral front wall of thorax, initial encounter (principal); S00.12XA Contusion of left eyelid and periocular area, initial encounter; E78.00 Pure hypercholesterolemia, unspecified; I10 Essential (primary) hypertension; K21.9 Gastro-esophageal reflux disease without esophagitis; E03.9 Hypothyroidism, unspecified; Z88.8 Allergy status to other drugs, medicaments and biological substances; Z88.0 Allergy status to penicillin; Z88.2 Allergy status to sulfonamides; Z88.6 Allergy status to analgesic agent; Z79.899 Other long term (current) drug therapy; Z86.19 Personal history of other infectious and parasitic diseases; Z86.16 Personal history of COVID-19; Z90.49 Acquired absence of other specified parts of digestive tract; Z90.710 Acquired absence of both cervix and uterus; V47.5XXA Car driver injured in collision with fixed or stationary object in traffic accident, initial encounter; Y93.89 Activity, other specified
CPT/HCPCS: 36415; 71260; 74177; 80053; 80307; 83690; 83735; 85025; 85610; 85730; 86140; 93005; 96361; 96365; 96375; 99284; J1170; J2550; J3490; J7042; Q9967; 93010

== ENCOUNTER 2023-06-25 11:40 | Emergency (ER) | payer MEDICAID, OTHER ==
[2023-06-25 12:51] LABS: HEMATOCRIT 42.2 % (37.0-47.0); HEMOGLOBIN 13.8 gm/dl (12.0-16.0); MEAN CORPUSCULAR HEMOGLOBIN 31.2 pg (28.0-32.0); MEAN CORPUSCULAR HGB CONC 32.7 g/dl (32.0-36.0); MEAN CORPUSCULAR VOLUME 95.3 fl (83.0-99.0); MEAN PLATELET VOLUME 10.4 fl (9.4-12.3); PLATELET COUNT,PLT 330 K/mm3 (150-400); RED BLOOD CELL COUNT 4.43 M/mm3 (4.10-5.30); WHITE BLOOD CELL COUNT,WBC 6.58 K/mm3 (3.9-11.3)
[2023-06-25 12:52] LABS: BARBITURATE SCREEN,URINE NEGATIVE (CUTOFF=200); BENZODIAZEPINES SCREEN,URINE PRESUMPTIVE POSITIVE (CUTOFF=150); BUPRENORPHINE SCREEN,URINE NEGATIVE (CUTOFF=10); METHADONE SCREEN, URINE NEGATIVE (CUTOFF=200); METHAMPHETAMINES SCREEN, URINE NEGATIVE (CUTOFF=500); OXYCODONE SCREEN,URINE NEGATIVE (CUT0FF=100); THC SCREEN,URINE 20 NG/ML NEGATIVE (CUTOFF=50)
[2023-06-25] MEDS: Alum Hydrox/Mag Hydrox/Simeth 30 ML, Lidocaine 2% 15 ML PO ONE (12:57)
[2023-06-25 12:58] LABS: AMPHETAMINES SCREEN, URINE PRESUMPTIVE POSITIVE (CUTOFF=500)
[2023-06-25] MEDS: LORazepam 2 MG/ML SDV IVPUSH ONE (12:59)
[2023-06-25] MEDS: Ondansetron 4 MG/2 ML SDV IVPUSH ONE (13:01)
[2023-06-25] MEDS: Sodium Chloride 0.9% 1,000 ML IV STA (13:08)
[2023-06-25] MEDS: Famotidine 20 MG/2 ML SDV IVPUSH ONE (13:08)
[2023-06-25] MEDS: Sodium Chloride 0.9% 10 ML Syringe FLUSH PRN (13:10)
[2023-06-25 13:11] VITALS: PULSE 77
[2023-06-25 13:18] LABS: A/G RATIO 0.9 (1-2); ALBUMIN 3.4 g/dl (3.4-5.0); ANION GAP 14.7 (5-15); BILIRUBIN TOTAL 0.2 mg/dL (0.2-1.0); BUN/CREATININE RATIO 18.3 (14-18); CALCIUM 8.7 mg/dL (8.5-10.1); CREATININE 0.6 mg/dL (0.55-1.02); EST CRCL DRUG DOSING (CG) 91.96 mL/min; ETHANOL BLOOD MEDICAL 0.22 gm% (0.00); POTASSIUM,K 3.7 mEq/L (3.5-5.1); TSH 0.977 uIU/mL (0.358-3.74)
[2023-06-25 14:04] LABS: BAND PERCENT MAN 0 % (0-10); BASOPHILS PERCENT MAN 0 (0.1-1.2); EOSINOPHILS PERCENT MAN 3 % (0.7-5.8); LYMPHOCYTES % ATYPICAL MANUAL 0 %; LYMPHOCYTES PERCENT MAN 30 % (20-40); MONOCYTES PERCENT MAN 0 % (2-10)
[2023-06-25 14:05] LABS: PLATELET COUNT ESTIMATE ADEQUATE
[2023-06-25] MEDS: LORazepam 1 MG Tab PO ONE (14:51)
[2023-06-25] MEDS: Haloperidol Lactate 5 MG/ML SDV IM ONE (15:10)
[2023-06-25 16:15] VITALS: BP 139/86
== END 2023-06-25 14:50 | disposition home or self-care (01) ==
LOC: JD.ED 11:40
DX: R07.89 Other chest pain (principal); R10.10 Upper abdominal pain, unspecified; K21.9 Gastro-esophageal reflux disease without esophagitis; F10.220 Alcohol dependence with intoxication, uncomplicated; I10 Essential (primary) hypertension; E78.00 Pure hypercholesterolemia, unspecified; E66.9 Obesity, unspecified; E03.9 Hypothyroidism, unspecified; Z68.32 Body mass index [BMI] 32.0-32.9, adult; Z86.16 Personal history of COVID-19; Z88.0 Allergy status to penicillin; Z88.5 Allergy status to narcotic agent; Z88.2 Allergy status to sulfonamides; Z88.8 Allergy status to other drugs, medicaments and biological substances; Z88.6 Allergy status to analgesic agent; Z79.899 Other long term (current) drug therapy; Z90.49 Acquired absence of other specified parts of digestive tract; Z90.710 Acquired absence of both cervix and uterus
CPT/HCPCS: 36415; 80053; 80143; 80179; 80306; 80307; 83690; 84443; 85007; 85027; 93005; 96361; 96374; 96375; 99285; A9270; J2060; J2405; J3490; J7030

== ENCOUNTER 2023-06-26 17:18 | Emergency (ER) | payer MEDICAID ==
[2023-06-26 17:26] VITALS: BP 151/115; PULSE 93
[2023-06-26 18:30] LABS: BASOPHILS ABSOLUTE AUTO 0.1 K/mm3 (0.0-0.2); BASOPHILS PERCENT AUTO 0.7 % (0.0-1.0); EOSINOPHILS ABSOLUTE AUTO 0.3 K/mm3 (0.0-0.4); EOSINOPHILS PERCENT AUTO 4.4 % (0.0-6.0); HEMATOCRIT 40.7 % (37.0-47.0); HEMOGLOBIN 13.6 gm/dl (12.0-16.0); IMMATURE GRAN ABSOLUTE AUTO 0.02 K/mm3 (0.00-0.05); IMMATURE GRAN PERCENT AUTO 0.3 % (0.0-0.4); LYMPHOCYTES PERCENT AUTO 28.1 % (24.0-44.0); MEAN CORPUSCULAR HEMOGLOBIN 31.1 pg (28.0-32.0); MEAN CORPUSCULAR HGB CONC 33.4 g/dl (32.0-36.0); MEAN CORPUSCULAR VOLUME 93.1 fl (83.0-99.0); MEAN PLATELET VOLUME 10.9 fl (9.4-12.3); MONOCYTES ABSOLUTE AUTO 0.5 K/mm3 (0.0-0.8); MONOCYTES PERCENT AUTO 6.7 % (0.0-8.0); NEUTROPHILS ABSOLUTE AUTO 4.2 K/mm3 (1.8-7.7); NEUTROPHILS PERCENT AUTO 59.8 % (41.0-71.0); PLATELET COUNT,PLT 301 K/mm3 (150-400); RED BLOOD CELL COUNT 4.37 M/mm3 (4.10-5.30); WHITE BLOOD CELL COUNT,WBC 7.04 K/mm3 (3.9-11.3)
[2023-06-26] MEDS: Famotidine 20 MG Tab PO ONE (18:32)
[2023-06-26] MEDS: Aluminum Hydroxide/Magnesium Hydroxide/Simethicone Susp 30 ML Cup PO ONE (18:32)
[2023-06-26 18:51] LABS: A/G RATIO 0.9 (1-2); ALBUMIN 3.3 g/dl (3.4-5.0); ANION GAP 18.1 (5-15); BILIRUBIN TOTAL 0.1 mg/dL (0.2-1.0); CREATININE 0.6 mg/dL (0.55-1.02); EST CRCL DRUG DOSING (CG) 91.96 mL/min; POTASSIUM,K 4.1 mEq/L (3.5-5.1); PROTEIN TOTAL,TP 6.9 g/dl (6.4-8.2)
== END 2023-06-26 19:03 | disposition left against medical advice (07) ==
LOC: JD.ED 17:18
DX: R10.13 Epigastric pain (principal); R11.0 Nausea; I10 Essential (primary) hypertension; E78.00 Pure hypercholesterolemia, unspecified; K21.9 Gastro-esophageal reflux disease without esophagitis; E03.9 Hypothyroidism, unspecified; Z53.29 Procedure and treatment not carried out because of patient's decision for other reasons; Z88.0 Allergy status to penicillin; Z88.5 Allergy status to narcotic agent; Z88.8 Allergy status to other drugs, medicaments and biological substances; Z88.2 Allergy status to sulfonamides; Z79.899 Other long term (current) drug therapy; Z79.51 Long term (current) use of inhaled steroids; Z86.16 Personal history of COVID-19; Z90.49 Acquired absence of other specified parts of digestive tract; Z90.710 Acquired absence of both cervix and uterus
CPT/HCPCS: 36415; 80053; 84484; 85025; 93005; 99284; A9270; 93010; 99283

== ENCOUNTER 2023-06-30 15:44 | Emergency (ER) | payer MEDICAID ==
[2023-06-30 16:01] VITALS: PULSE 74
[2023-06-30] MEDS: Sodium Chloride 0.9% 1,000 ML IV ONE (16:46)
[2023-06-30] MEDS: Prochlorperazine 10 MG/2 ML SDV IVPUSH ONE (16:47)
[2023-06-30] MEDS: Orphenadrine 60 MG/2 ML Inj IV ONE (16:47)
[2023-06-30 16:49] LABS: BASOPHILS ABSOLUTE AUTO 0.1 K/mm3 (0.0-0.2); BASOPHILS PERCENT AUTO 0.7 % (0.0-1.0); EOSINOPHILS ABSOLUTE AUTO 0.2 K/mm3 (0.0-0.4); EOSINOPHILS PERCENT AUTO 2.5 % (0.0-6.0); HEMATOCRIT 40.2 % (37.0-47.0); HEMOGLOBIN 13.5 gm/dl (12.0-16.0); IMMATURE GRAN ABSOLUTE AUTO 0.01 K/mm3 (0.00-0.05); IMMATURE GRAN PERCENT AUTO 0.1 % (0.0-0.4); LYMPHOCYTES ABSOLUTE AUTO 2.1 K/mm3 (1.0-4.8); LYMPHOCYTES PERCENT AUTO 29.3 % (24.0-44.0); MEAN CORPUSCULAR HEMOGLOBIN 31.5 pg (28.0-32.0); MEAN CORPUSCULAR HGB CONC 33.6 g/dl (32.0-36.0); MEAN CORPUSCULAR VOLUME 93.7 fl (83.0-99.0); MEAN PLATELET VOLUME 9.9 fl (9.4-12.3); MONOCYTES ABSOLUTE AUTO 0.6 K/mm3 (0.0-0.8); NEUTROPHILS ABSOLUTE AUTO 4.2 K/mm3 (1.8-7.7); NEUTROPHILS PERCENT AUTO 59.4 % (41.0-71.0); PLATELET COUNT,PLT 333 K/mm3 (150-400); RED BLOOD CELL COUNT 4.29 M/mm3 (4.10-5.30); WHITE BLOOD CELL COUNT,WBC 7.09 K/mm3 (3.9-11.3)
[2023-06-30] MEDS: Aspirin 325 MG Tab.EC PO ONE (16:50)
[2023-06-30] MEDS: Caffeine 200 MG Tab PO ONE (16:50)
[2023-06-30] MEDS: Sodium Chloride 0.9% 10 ML Syringe FLUSH PRN (16:50)
[2023-06-30 17:15] LABS: ALBUMIN 3.6 g/dl (3.4-5.0); ANION GAP 12.9 (5-15); BILIRUBIN TOTAL 0.3 mg/dL (0.2-1.0); BUN/CREATININE RATIO 15.7 (14-18); CALCIUM 9.2 mg/dL (8.5-10.1); CREATININE 0.7 mg/dL (0.55-1.02); EST CRCL DRUG DOSING (CG) 117.3 mL/min; ETHANOL BLOOD MEDICAL 0.08 gm% (0.00); POTASSIUM,K 3.9 mEq/L (3.5-5.1); PROTEIN TOTAL,TP 7.1 g/dl (6.4-8.2)
[2023-06-30 18:15] LABS: CORONAVIRUS COVID-19 NAA POSITIVE (NEGATIVE); INFLUENZA A NAA NEGATIVE (NEGATIVE); RESPIRATORY SYNCYTIAL VIR NAA NEGATIVE (NEGATIVE)
[2023-06-30 18:41] LABS: BARBITURATE SCREEN,URINE NEGATIVE (CUTOFF=200); BENZODIAZEPINES SCREEN,URINE PRESUMPTIVE POSITIVE (CUTOFF=150); BUPRENORPHINE SCREEN,URINE NEGATIVE (CUTOFF=10); METHADONE SCREEN, URINE NEGATIVE (CUTOFF=200); METHAMPHETAMINES SCREEN, URINE PRESUMPTIVE POSITIVE (CUTOFF=500); OXYCODONE SCREEN,URINE NEGATIVE (CUT0FF=100); THC SCREEN,URINE 20 NG/ML NEGATIVE (CUTOFF=50)
[2023-06-30 18:42] LABS: AMPHETAMINES SCREEN, URINE PRESUMPTIVE POSITIVE (CUTOFF=500)
[2023-06-30 19:06] VITALS: BP 152/74
== END 2023-06-30 19:09 | disposition home or self-care (01) ==
LOC: JD.ED 15:44
DX: U07.1 COVID-19 (principal); F10.20 Alcohol dependence, uncomplicated; I10 Essential (primary) hypertension; E78.00 Pure hypercholesterolemia, unspecified; K21.9 Gastro-esophageal reflux disease without esophagitis; E03.9 Hypothyroidism, unspecified; Z86.16 Personal history of COVID-19; Z88.8 Allergy status to other drugs, medicaments and biological substances; Z88.5 Allergy status to narcotic agent; Z88.2 Allergy status to sulfonamides; Z88.0 Allergy status to penicillin; Z90.49 Acquired absence of other specified parts of digestive tract; Z90.710 Acquired absence of both cervix and uterus; Z79.899 Other long term (current) drug therapy; Z79.51 Long term (current) use of inhaled steroids; Y90.9 Presence of alcohol in blood, level not specified
CPT/HCPCS: 0241U; 36415; 80053; 80306; 80307; 85025; 86140; 96374; 96375; 99284; A9270; J0780; J2360; J3490; J7030; 99283

== ENCOUNTER 2023-07-17 11:17 | Emergency (ER) | payer MEDICAID ==
[2023-07-17 11:23] VITALS: BP 174/98; PULSE 86
[2023-07-17] MEDS: Ondansetron 4 MG Tab.DIS PO ONE (11:55)
== END 2023-07-17 11:55 | disposition home or self-care (01) ==
LOC: JD.ED 11:17
DX: Z00.00 Encounter for general adult medical examination without abnormal findings (principal); I10 Essential (primary) hypertension; K21.9 Gastro-esophageal reflux disease without esophagitis; E78.00 Pure hypercholesterolemia, unspecified; E66.9 Obesity, unspecified; E03.9 Hypothyroidism, unspecified; Z86.16 Personal history of COVID-19; Z88.0 Allergy status to penicillin; Z88.2 Allergy status to sulfonamides; Z88.5 Allergy status to narcotic agent; Z88.8 Allergy status to other drugs, medicaments and biological substances; Z79.899 Other long term (current) drug therapy; Z90.49 Acquired absence of other specified parts of digestive tract; Z90.710 Acquired absence of both cervix and uterus; Z68.39 Body mass index [BMI] 39.0-39.9, adult
CPT/HCPCS: 71045; 71045-26; 99284

== ENCOUNTER 2024-05-31 09:14 | Emergency (ER) | payer MEDICAID ==
[2024-05-31] MEDS: Ondansetron 4 MG Tab.DIS PO ONE (10:05)
[2024-05-31] MEDS: Acetaminophen 325 MG Tab PO ONE (10:05)
[2024-05-31] MEDS: Folic Acid 1 MG Tab PO ONE (12:08)
[2024-05-31] MEDS: Thiamine 100 MG Tab PO ONE (12:08)
[2024-05-31] MEDS: Lactated Ringers 1,000 ML IV ONE (12:26)
[2024-05-31 12:41] LABS: BASOPHILS PERCENT AUTO 0.6 % (0.0-1.0); EOSINOPHILS PERCENT AUTO 0.6 % (0.0-6.0); HEMATOCRIT 44.3 % (37.0-47.0); HEMOGLOBIN 14.6 gm/dl (12.0-16.0); IMMATURE GRAN ABSOLUTE AUTO 0.03 K/mm3 (0.00-0.05); IMMATURE GRAN PERCENT AUTO 0.4 % (0.0-0.4); LYMPHOCYTES ABSOLUTE AUTO 1.3 K/mm3 (1.0-4.8); LYMPHOCYTES PERCENT AUTO 18.4 % (24.0-44.0); MEAN CORPUSCULAR HEMOGLOBIN 29.6 pg (28.0-32.0); MEAN PLATELET VOLUME 9.9 fl (9.4-12.3); MONOCYTES ABSOLUTE AUTO 0.3 K/mm3 (0.0-0.8); MONOCYTES PERCENT AUTO 4.9 % (0.0-8.0); NEUTROPHILS ABSOLUTE AUTO 5.3 K/mm3 (1.8-7.7); NEUTROPHILS PERCENT AUTO 75.1 % (41.0-71.0); RED BLOOD CELL COUNT 4.94 M/mm3 (4.10-5.30)
[2024-05-31] MEDS: Multivitamins with Minerals/Folic Acid/Lutein/Zeaxanth Tab PO ONE (12:50)
[2024-05-31] MEDS: LORazepam 1 MG Tab PO ONE ×2 (12:50→15:05)
[2024-05-31 12:51] LABS: MEAN CORPUSCULAR VOLUME 89.7 fl (83.0-99.0); PLATELET COUNT,PLT 213 K/mm3 (150-400)
[2024-05-31 13:08] LABS: A/G RATIO 1.1 (1-2); ALBUMIN 3.8 g/dl (3.4-5.0); ANION GAP 20.2 (5-15); BILIRUBIN TOTAL 1.1 mg/dL (0.2-1.0); CALCIUM 9.1 mg/dL (8.5-10.1); CREATININE 0.6 mg/dL (0.55-1.02); EST CRCL DRUG DOSING (CG) 87.18 mL/min; MAGNESIUM 1.8 mg/dL (1.8-2.4); POTASSIUM,K 4.2 mEq/L (3.5-5.1); PROTEIN TOTAL,TP 7.4 g/dl (6.4-8.2)
[2024-05-31 13:14] LABS: SLIDE REVIEW ABNORMAL SMEAR
[2024-05-31 15:25] VITALS: BP 146/100; PULSE 97
[2024-06-01] MEDS ORDERED: Multivitamins with Minerals/Folic Acid/Lutein/Zeaxanth Tab PO ONE (11:41)
== END 2024-05-31 15:15 | disposition home or self-care (01) ==
LOC: JD.ED 09:14
DX: F10.220 Alcohol dependence with intoxication, uncomplicated (principal); I10 Essential (primary) hypertension; E78.00 Pure hypercholesterolemia, unspecified; E03.9 Hypothyroidism, unspecified; Z86.16 Personal history of COVID-19; Z90.49 Acquired absence of other specified parts of digestive tract; Z88.2 Allergy status to sulfonamides; Z88.5 Allergy status to narcotic agent; Z88.8 Allergy status to other drugs, medicaments and biological substances; Z79.890 Hormone replacement therapy; Z79.899 Other long term (current) drug therapy; Z79.51 Long term (current) use of inhaled steroids; Y90.9 Presence of alcohol in blood, level not specified
CPT/HCPCS: 36415; 80053; 80307; 83735; 85025; 96360; 99283; 99284-25; A9270-GY; J7120

== ENCOUNTER 2024-06-03 07:37 | Emergency (ER) | payer MEDICAID ==
[2024-06-03 09:14] LABS: BASOPHILS PERCENT AUTO 0.4 % (0.0-1.0); EOSINOPHILS ABSOLUTE AUTO 0.1 K/mm3 (0.0-0.4); EOSINOPHILS PERCENT AUTO 2.4 % (0.0-6.0); HEMATOCRIT 41.8 % (37.0-47.0); HEMOGLOBIN 13.4 gm/dl (12.0-16.0); IMMATURE GRAN ABSOLUTE AUTO 0.01 K/mm3 (0.00-0.05); IMMATURE GRAN PERCENT AUTO 0.2 % (0.0-0.4); LYMPHOCYTES ABSOLUTE AUTO 1.3 K/mm3 (1.0-4.8); LYMPHOCYTES PERCENT AUTO 28.3 % (24.0-44.0); MEAN CORPUSCULAR HEMOGLOBIN 29.7 pg (28.0-32.0); MEAN CORPUSCULAR HGB CONC 32.1 g/dl (32.0-36.0); MEAN CORPUSCULAR VOLUME 92.7 fl (83.0-99.0); MONOCYTES ABSOLUTE AUTO 0.4 K/mm3 (0.0-0.8); MONOCYTES PERCENT AUTO 8.2 % (0.0-8.0); NEUTROPHILS ABSOLUTE AUTO 2.8 K/mm3 (1.8-7.7); NEUTROPHILS PERCENT AUTO 60.5 % (41.0-71.0); PLATELET COUNT,PLT 247 K/mm3 (150-400); RED BLOOD CELL COUNT 4.51 M/mm3 (4.10-5.30); WHITE BLOOD CELL COUNT,WBC 4.66 K/mm3 (3.9-11.3)
[2024-06-03 09:43] LABS: ALBUMIN 3.6 g/dl (3.4-5.0); ANION GAP 11.5 (5-15); BILIRUBIN TOTAL 0.6 mg/dL (0.2-1.0); CALCIUM 9.4 mg/dL (8.5-10.1); CREATININE 0.7 mg/dL (0.55-1.02); EST CRCL DRUG DOSING (CG) 84.15 mL/min; LACTIC ACID 1.2 mmol/L (0.4-2.0); POTASSIUM,K 4.5 mEq/L (3.5-5.1); PROTEIN TOTAL,TP 7.2 g/dl (6.4-8.2)
[2024-06-03 10:13] LABS: BARBITURATE SCREEN,URINE NEGATIVE (CUTOFF=200); BENZODIAZEPINES SCREEN,URINE PRESUMPTIVE POSITIVE (CUTOFF=150); BUPRENORPHINE SCREEN,URINE NEGATIVE (CUTOFF=10); METHADONE SCREEN, URINE NEGATIVE (CUTOFF=200); METHAMPHETAMINES SCREEN, URINE NEGATIVE (CUTOFF=500); OXYCODONE SCREEN,URINE NEGATIVE (CUT0FF=100); THC SCREEN,URINE 20 NG/ML NEGATIVE (CUTOFF=50)
[2024-06-03] MEDS: LORazepam 2 MG/ML SDV IVPUSH ONE (10:21)
[2024-06-03] MEDS: LORazepam 1 MG Tab PO ONE ×2 (10:21→11:45)
[2024-06-03] MEDS: Ondansetron 4 MG/2 ML SDV IVPUSH ONE (10:21)
[2024-06-03] MEDS: Ondansetron 4 MG Tab.DIS PO ONE (10:22)
[2024-06-03] MEDS: Sodium Chloride 0.9% 1,000 ML IV ONE (10:22)
[2024-06-03] MEDS: Metoclopramide 10 MG/2 ML SDV IM ONE (10:26)
[2024-06-03] MEDS: chlordiazePOXIDE 25 MG Cap PO ONE (10:26)
[2024-06-03] MEDS: Metoclopramide 10 MG/2 ML SDV IVPUSH ONE (10:31)
[2024-06-03 10:34] LABS: AMPHETAMINES SCREEN, URINE NEGATIVE (CUTOFF=500)
[2024-06-03 12:51] VITALS: BP 130/93; PULSE 81
== END 2024-06-03 12:20 | disposition home or self-care (01) ==
LOC: JD.ED 07:37
DX: F10.930 Alcohol use, unspecified with withdrawal, uncomplicated (principal); G44.89 Other headache syndrome; I10 Essential (primary) hypertension; K21.9 Gastro-esophageal reflux disease without esophagitis; E03.9 Hypothyroidism, unspecified; E66.9 Obesity, unspecified; Z86.16 Personal history of COVID-19; Z90.49 Acquired absence of other specified parts of digestive tract; Z90.710 Acquired absence of both cervix and uterus; Z87.891 Personal history of nicotine dependence; Z79.890 Hormone replacement therapy; Z79.899 Other long term (current) drug therapy; Z88.0 Allergy status to penicillin; Z88.2 Allergy status to sulfonamides; Z88.5 Allergy status to narcotic agent; Z88.8 Allergy status to other drugs, medicaments and biological substances; Z68.29 Body mass index [BMI] 29.0-29.9, adult
CPT/HCPCS: 36415; 70450; 80053; 80306; 80307; 83605; 83690; 84484; 85025; 93005; 96372; 99285; A9270; J2765; 93010; 99284

== ENCOUNTER 2024-06-05 13:51 | Emergency (ER) | payer MEDICAID ==
[2024-06-05] MEDS: LORazepam 1 MG Tab PO ONE (14:52)
[2024-06-05] MEDS: Aspirin 81 MG Tab.Chew PO ONE (14:53)
[2024-06-05 15:17] LABS: BASOPHILS PERCENT AUTO 0.7 % (0.0-1.0); EOSINOPHILS ABSOLUTE AUTO 0.1 K/mm3 (0.0-0.4); HEMATOCRIT 40.6 % (37.0-47.0); HEMOGLOBIN 12.9 gm/dl (12.0-16.0); IMMATURE GRAN ABSOLUTE AUTO 0.02 K/mm3 (0.00-0.05); IMMATURE GRAN PERCENT AUTO 0.4 % (0.0-0.4); LYMPHOCYTES ABSOLUTE AUTO 1.7 K/mm3 (1.0-4.8); LYMPHOCYTES PERCENT AUTO 30.5 % (24.0-44.0); MEAN CORPUSCULAR HEMOGLOBIN 29.7 pg (28.0-32.0); MEAN CORPUSCULAR HGB CONC 31.8 g/dl (32.0-36.0); MEAN CORPUSCULAR VOLUME 93.3 fl (83.0-99.0); MEAN PLATELET VOLUME 10.4 fl (9.4-12.3); MONOCYTES ABSOLUTE AUTO 0.4 K/mm3 (0.0-0.8); MONOCYTES PERCENT AUTO 7.9 % (0.0-8.0); NEUTROPHILS ABSOLUTE AUTO 3.3 K/mm3 (1.8-7.7); NEUTROPHILS PERCENT AUTO 58.5 % (41.0-71.0); PLATELET COUNT,PLT 249 K/mm3 (150-400); RED BLOOD CELL COUNT 4.35 M/mm3 (4.10-5.30); WHITE BLOOD CELL COUNT,WBC 5.57 K/mm3 (3.9-11.3)
[2024-06-05 15:58] LABS: A/G RATIO 1.1 (1-2); ALANINE AMINOTRANSFERASE,ALT 46 U/L (14-59); ALBUMIN 3.8 g/dl (3.4-5.0); ALKALINE PHOSPHATASE 126 U/L (46-116); ANION GAP 14.1 (5-15); ASPARTATE AMNIOTRANSFERASE,AST 30 U/L (15-37); BILIRUBIN TOTAL 0.3 mg/dL (0.2-1.0); BLOOD UREA NITROGEN,BUN 18 mg/dL (7-18); BUN/CREATININE RATIO 22.5 (14-18); CALCIUM 9.5 mg/dL (8.5-10.1); CARBON DIOXIDE,CO2 26 mEq/L (21-32); CHLORIDE,CL 103 mEq/L (98-107); CREATININE 0.8 mg/dL (0.55-1.02); ESTIMATED GFR 85 mL/min (>60); GLUCOSE RANDOM 102 mg/dL (70-99); MAGNESIUM 1.9 mg/dL (1.8-2.4); POTASSIUM,K 4.1 mEq/L (3.5-5.1); PROTEIN TOTAL,TP 7.2 g/dl (6.4-8.2); SODIUM,NA 139 mEq/L (136-145)
[2024-06-05 16:21] LABS: TROPONIN I HIGH SENSITIVITY < 4 pg/mL (<=51)
[2024-06-05] MEDS: Pantoprazole 40 MG in Sodium Chloride 0.9% 100 ML IV ONE (17:08)
[2024-06-05] MEDS: Lidocaine 2% Viscous Solution 15 ML UD PO ONE (17:09)
[2024-06-05 20:11] VITALS: BP 127/77; PULSE 70
== END 2024-06-05 17:18 ==
LOC: JD.ED 13:51
DX: K21.9 Gastro-esophageal reflux disease without esophagitis (principal); I10 Essential (primary) hypertension; E78.00 Pure hypercholesterolemia, unspecified; E03.9 Hypothyroidism, unspecified; Z88.5 Allergy status to narcotic agent; Z88.0 Allergy status to penicillin; Z88.2 Allergy status to sulfonamides; Z88.8 Allergy status to other drugs, medicaments and biological substances; Z79.890 Hormone replacement therapy; Z79.899 Other long term (current) drug therapy; Z86.16 Personal history of COVID-19; Z90.49 Acquired absence of other specified parts of digestive tract
CPT/HCPCS: 36415; 71045; 80053; 83735; 84484; 85025; 85379; 93005; 99285; A9270; 93010; 99284

== ENCOUNTER 2024-08-07 15:48 | Emergency (ER) | payer MEDICAID ==
[2024-08-07 17:21] LABS: BASOPHILS PERCENT AUTO 0.7 % (0.0-1.0); EOSINOPHILS ABSOLUTE AUTO 0.1 K/mm3 (0.0-0.4); HEMATOCRIT 42.4 % (37.0-47.0); IMMATURE GRAN ABSOLUTE AUTO 0.01 K/mm3 (0.00-0.05); IMMATURE GRAN PERCENT AUTO 0.2 % (0.0-0.4); LYMPHOCYTES ABSOLUTE AUTO 1.7 K/mm3 (1.0-4.8); LYMPHOCYTES PERCENT AUTO 28.8 % (24.0-44.0); MEAN CORPUSCULAR HEMOGLOBIN 30.4 pg (28.0-32.0); MEAN CORPUSCULAR VOLUME 92.2 fl (83.0-99.0); MEAN PLATELET VOLUME 9.5 fl (9.4-12.3); MONOCYTES ABSOLUTE AUTO 0.7 K/mm3 (0.0-0.8); MONOCYTES PERCENT AUTO 11.2 % (0.0-8.0); NEUTROPHILS ABSOLUTE AUTO 3.5 K/mm3 (1.8-7.7); NEUTROPHILS PERCENT AUTO 58.1 % (41.0-71.0); PLATELET COUNT,PLT 227 K/mm3 (150-400); WHITE BLOOD CELL COUNT,WBC 6.05 K/mm3 (3.9-11.3)
[2024-08-07 17:54] LABS: A/G RATIO 0.9 (1-2); ALBUMIN 3.8 g/dl (3.4-5.0); ANION GAP 15.1 (5-15); BILIRUBIN TOTAL 0.7 mg/dL (0.2-1.0); BUN/CREATININE RATIO 18.8 (14-18); CALCIUM 9.4 mg/dL (8.5-10.1); CREATININE 0.8 mg/dL (0.55-1.02); EST CRCL DRUG DOSING (CG) 68.13 mL/min; MAGNESIUM 2.3 mg/dL (1.8-2.4); PROTEIN TOTAL,TP 7.9 g/dl (6.4-8.2)
[2024-08-07 17:57] LABS: POTASSIUM,K 5.1 mEq/L (3.5-5.1)
[2024-08-07] MEDS: Ondansetron 4 MG/2 ML SDV IVPUSH ONE ×2 (18:46→18:53)
[2024-08-07] MEDS: LORazepam 2 MG/ML SDV IVPUSH ONE ×3 (18:46→19:57)
[2024-08-07] MEDS: Sodium Chloride 0.9% 1,000 ML IV ONE (18:55)
[2024-08-07 22:20] VITALS: BP 138/78; PULSE 87
== END 2024-08-07 20:00 | disposition home or self-care (01) ==
LOC: JD.ED 15:48
DX: R11.2 Nausea with vomiting, unspecified (principal); R19.7 Diarrhea, unspecified; E86.0 Dehydration; F41.9 Anxiety disorder, unspecified; I10 Essential (primary) hypertension; K21.9 Gastro-esophageal reflux disease without esophagitis; E78.00 Pure hypercholesterolemia, unspecified; E66.9 Obesity, unspecified; E11.9 Type 2 diabetes mellitus without complications; Z88.0 Allergy status to penicillin; Z88.2 Allergy status to sulfonamides; Z88.5 Allergy status to narcotic agent; Z88.8 Allergy status to other drugs, medicaments and biological substances; Z79.890 Hormone replacement therapy; Z79.899 Other long term (current) drug therapy; Z86.16 Personal history of COVID-19; Z90.49 Acquired absence of other specified parts of digestive tract; Z90.710 Acquired absence of both cervix and uterus; Z68.34 Body mass index [BMI] 34.0-34.9, adult
CPT/HCPCS: 36415; 80053; 80307; 83690; 83735; 85025; 96361; 96374; 96375; 96376; 99284; J2060; J2405; J7030; 99283

== ENCOUNTER 2024-08-11 16:37 | Emergency (ER) | payer MEDICAID ==
[2024-08-11 16:59] VITALS: BP 164/107; PULSE 68
[2024-08-11] MEDS: Ondansetron 4 MG Tab.DIS PO ONE (17:28)
[2024-08-11] MEDS: LORazepam 1 MG Tab PO ONE (17:29)
== END 2024-08-11 17:26 | disposition home or self-care (01) ==
LOC: JD.ED 16:37
DX: F10.230 Alcohol dependence with withdrawal, uncomplicated (principal); F41.9 Anxiety disorder, unspecified; I10 Essential (primary) hypertension; E66.9 Obesity, unspecified; E03.9 Hypothyroidism, unspecified; M19.90 Unspecified osteoarthritis, unspecified site; Z88.2 Allergy status to sulfonamides; Z88.0 Allergy status to penicillin; Z79.899 Other long term (current) drug therapy; Z79.890 Hormone replacement therapy; Z86.16 Personal history of COVID-19; Z90.710 Acquired absence of both cervix and uterus; Z90.49 Acquired absence of other specified parts of digestive tract; Z68.34 Body mass index [BMI] 34.0-34.9, adult
CPT/HCPCS: 93005; 99284; A9270; 93010; 99283

== ENCOUNTER 2024-08-13 11:43 | Inpatient (IN) | payer MEDICAID ==
[2024-08-13] MEDS ORDERED: Sodium Chloride 0.9% 10 ML Syringe FLUSH PRN (11:48)
[2024-08-13 13:01] LABS: BASOPHILS PERCENT AUTO 0.7 % (0.0-1.0); EOSINOPHILS ABSOLUTE AUTO 0.1 K/mm3 (0.0-0.4); EOSINOPHILS PERCENT AUTO 1.6 % (0.0-6.0); HEMOGLOBIN 13.2 gm/dl (12.0-16.0); IMMATURE GRAN ABSOLUTE AUTO 0.02 K/mm3 (0.00-0.05); IMMATURE GRAN PERCENT AUTO 0.4 % (0.0-0.4); LYMPHOCYTES ABSOLUTE AUTO 1.2 K/mm3 (1.0-4.8); LYMPHOCYTES PERCENT AUTO 21.1 % (24.0-44.0); MEAN CORPUSCULAR HEMOGLOBIN 30.7 pg (28.0-32.0); MEAN CORPUSCULAR HGB CONC 31.4 g/dl (32.0-36.0); MEAN PLATELET VOLUME 9.7 fl (9.4-12.3); MONOCYTES ABSOLUTE AUTO 0.6 K/mm3 (0.0-0.8); NEUTROPHILS ABSOLUTE AUTO 3.8 K/mm3 (1.8-7.7); NEUTROPHILS PERCENT AUTO 66.2 % (41.0-71.0); PLATELET COUNT,PLT 301 K/mm3 (150-400); WHITE BLOOD CELL COUNT,WBC 5.69 K/mm3 (3.9-11.3)
[2024-08-13 13:02] LABS: MEAN CORPUSCULAR VOLUME 97.7 fl (83.0-99.0)
[2024-08-13 13:21] LABS: INR 0.98; PROTHROMBIN TIME 10.4 SECONDS (9.7-12.0)
[2024-08-13 13:22] LABS: PTT,PARTIAL THROMBOPLSTIN TIME 26.2 SECONDS (21.7-31.4)
[2024-08-13 13:25] LABS: A/G RATIO 0.9 (1-2); ALANINE AMINOTRANSFERASE,ALT 76 U/L (14-59); ALBUMIN 3.6 g/dl (3.4-5.0); ALKALINE PHOSPHATASE 130 U/L (46-116); ANION GAP 12.5 (5-15); ASPARTATE AMNIOTRANSFERASE,AST 70 U/L (15-37); BILIRUBIN TOTAL 0.5 mg/dL (0.2-1.0); BLOOD UREA NITROGEN,BUN 13 mg/dL (7-18); BUN/CREATININE RATIO 14.4 (14-18); CALCIUM 9.6 mg/dL (8.5-10.1); CARBON DIOXIDE,CO2 29 mEq/L (21-32); CHLORIDE,CL 103 mEq/L (98-107); CREATINE KINASE,CK 35 U/L (26-192); CREATININE 0.9 mg/dL (0.55-1.02); ESTIMATED GFR 74 mL/min (>60); GLUCOSE RANDOM 112 mg/dL (70-99); MAGNESIUM 2.1 mg/dL (1.8-2.4); POTASSIUM,K 4.5 mEq/L (3.5-5.1); PROTEIN TOTAL,TP 7.6 g/dl (6.4-8.2); SODIUM,NA 140 mEq/L (136-145)
[2024-08-13 13:29] LABS: TROPONIN I HIGH SENSITIVITY < 4 pg/mL (<=51)
[2024-08-13] MEDS: Iopamidol 755 Mg/ML 100 ML Bottle IVPUSH ONE (14:11)
[2024-08-13] MEDS ORDERED: Sodium Chloride 0.9% 100 ML IV SCH (14:15)
[2024-08-13] MEDS: Lidocaine 1% 10 ML MDV ONE (14:43)
[2024-08-13] MEDS: Lidocaine 1% 20 ML MDV INJECT ONE (14:47)
[2024-08-13] MEDS ORDERED: LORazepam 2 MG/ML SDV IV PRN (15:48)
[2024-08-13 15:55] LABS: HEMOGLOBIN A1C 5.1 %
[2024-08-13] MEDS: atorvaSTATin 40 MG Tab PO ONE ×2 (16:05→16:42)
[2024-08-13] MEDS: LORazepam 2 MG/ML SDV IV PRN (16:05)
[2024-08-13] MEDS: Acetaminophen 325 MG Tab PO PRN (16:07)
[2024-08-13 16:44] LABS: TSH 1.516 uIU/mL (0.358-3.74)
[2024-08-13 16:45] LABS: BARBITURATE SCREEN,URINE NEGATIVE (CUTOFF=200); BENZODIAZEPINES SCREEN,URINE PRESUMPTIVE POSITIVE (CUTOFF=150); BUPRENORPHINE SCREEN,URINE NEGATIVE (CUTOFF=10); METHADONE SCREEN, URINE NEGATIVE (CUTOFF=200); METHAMPHETAMINES SCREEN, URINE NEGATIVE (CUTOFF=500); OXYCODONE SCREEN,URINE NEGATIVE (CUT0FF=100); THC SCREEN,URINE 20 NG/ML NEGATIVE (CUTOFF=50)
[2024-08-13 16:47] LABS: AMPHETAMINES SCREEN, URINE NEGATIVE (CUTOFF=500)
[2024-08-13] MEDS: Folic Acid 1 MG Tab PO SCH (16:47)
[2024-08-13] MEDS: Thiamine 100 MG Tab PO SCH (16:47)
[2024-08-13] MEDS: Aspirin 325 MG Tab.EC PO ONE (16:47)
[2024-08-13] MEDS: Sodium Chloride 0.9% 1,000 ML IV SCH (16:51)
[2024-08-13] MEDS ORDERED: LORazepam 1 MG Tab PO PRN (20:23)
[2024-08-13] MEDS: Ondansetron 4 MG/2 ML SDV IVPUSH PRN (20:45)
[2024-08-13] MEDS: Gabapentin 300 MG Cap PO SCH (20:45)
[2024-08-13] MEDS: QUEtiapine 100 MG Tab PO SCH (20:45)
[2024-08-13] MEDS: LORazepam 1 MG Tab PO PRN (20:54)
[2024-08-14 06:27] LABS: BASOPHILS PERCENT AUTO 0.8 % (0.0-1.0); EOSINOPHILS ABSOLUTE AUTO 0.1 K/mm3 (0.0-0.4); EOSINOPHILS PERCENT AUTO 1.8 % (0.0-6.0); HEMATOCRIT 35.5 % (37.0-47.0); HEMOGLOBIN 11.3 gm/dl (12.0-16.0); IMMATURE GRAN ABSOLUTE AUTO 0.02 K/mm3 (0.00-0.05); IMMATURE GRAN PERCENT AUTO 0.4 % (0.0-0.4); LYMPHOCYTES ABSOLUTE AUTO 1.4 K/mm3 (1.0-4.8); MEAN CORPUSCULAR HGB CONC 31.8 g/dl (32.0-36.0); MEAN CORPUSCULAR VOLUME 97.5 fl (83.0-99.0); MEAN PLATELET VOLUME 9.6 fl (9.4-12.3); MONOCYTES ABSOLUTE AUTO 0.7 K/mm3 (0.0-0.8); MONOCYTES PERCENT AUTO 13.1 % (0.0-8.0); NEUTROPHILS ABSOLUTE AUTO 2.7 K/mm3 (1.8-7.7); NEUTROPHILS PERCENT AUTO 54.9 % (41.0-71.0); PLATELET COUNT,PLT 261 K/mm3 (150-400); RED BLOOD CELL COUNT 3.64 M/mm3 (4.10-5.30); WHITE BLOOD CELL COUNT,WBC 4.96 K/mm3 (3.9-11.3)
[2024-08-14 06:47] LABS: A/G RATIO 0.9 (1-2); ALBUMIN 2.8 g/dl (3.4-5.0); ANION GAP 12.5 (5-15); BILIRUBIN TOTAL 0.5 mg/dL (0.2-1.0); BUN/CREATININE RATIO 14.4 (14-18); CALCIUM 8.9 mg/dL (8.5-10.1); CREATININE 0.9 mg/dL (0.55-1.02); EST CRCL DRUG DOSING (CG) 60.56 mL/min; POTASSIUM,K 3.5 mEq/L (3.5-5.1); PROTEIN TOTAL,TP 6.1 g/dl (6.4-8.2)
[2024-08-14] MEDS: Aspirin 81 MG Tab.EC PO SCH (08:40)
[2024-08-14] MEDS: Multivitamin Tab PO SCH (08:40)
[2024-08-14] MEDS: Enoxaparin 40 MG/0.4 ML Syringe SUBCUT SCH (08:41)
[2024-08-14] MEDS: Clopidogrel 75 MG Tab PO SCH (08:41)
[2024-08-14] MEDS: Pantoprazole 40 MG Tab.CR PO SCH (08:41)
[2024-08-14] MEDS: LORazepam 2 MG/ML SDV IVPUSH ONE (11:21)
[2024-08-14] MEDS: oxyCODONE 5 MG Tab PO PRN (14:29)
[2024-08-14] MEDS: Nicotine 21 MG/24 Hr Patch TRDERM SCH (15:23)
[2024-08-14] MEDS: atorvaSTATin 40 MG Tab PO SCH (20:33)
[2024-08-15 04:53] VITALS: BP 115/85; PULSE 70
[2024-08-15 05:34] LABS: A/G RATIO 0.9 (1-2); ANION GAP 13.7 (5-15); BILIRUBIN TOTAL 0.4 mg/dL (0.2-1.0); CALCIUM 9.1 mg/dL (8.5-10.1); CREATININE 0.9 mg/dL (0.55-1.02); EST CRCL DRUG DOSING (CG) 60.56 mL/min; POTASSIUM,K 3.7 mEq/L (3.5-5.1); PROTEIN TOTAL,TP 6.4 g/dl (6.4-8.2)
[2024-08-15 05:42] LABS: BASOPHILS ABSOLUTE AUTO 0.1 K/mm3 (0.0-0.2); BASOPHILS PERCENT AUTO 0.9 % (0.0-1.0); EOSINOPHILS ABSOLUTE AUTO 0.1 K/mm3 (0.0-0.4); EOSINOPHILS PERCENT AUTO 1.7 % (0.0-6.0); HEMATOCRIT 35.8 % (37.0-47.0); HEMOGLOBIN 11.5 gm/dl (12.0-16.0); IMMATURE GRAN ABSOLUTE AUTO 0.03 K/mm3 (0.00-0.05); IMMATURE GRAN PERCENT AUTO 0.5 % (0.0-0.4); LYMPHOCYTES ABSOLUTE AUTO 1.6 K/mm3 (1.0-4.8); LYMPHOCYTES PERCENT AUTO 27.4 % (24.0-44.0); MEAN CORPUSCULAR HEMOGLOBIN 30.7 pg (28.0-32.0); MEAN CORPUSCULAR HGB CONC 32.1 g/dl (32.0-36.0); MEAN CORPUSCULAR VOLUME 95.7 fl (83.0-99.0); MEAN PLATELET VOLUME 9.8 fl (9.4-12.3); MONOCYTES ABSOLUTE AUTO 0.6 K/mm3 (0.0-0.8); NEUTROPHILS ABSOLUTE AUTO 3.4 K/mm3 (1.8-7.7); NEUTROPHILS PERCENT AUTO 59.5 % (41.0-71.0); PLATELET COUNT,PLT 303 K/mm3 (150-400); RED BLOOD CELL COUNT 3.74 M/mm3 (4.10-5.30); WHITE BLOOD CELL COUNT,WBC 5.72 K/mm3 (3.9-11.3)
== END 2024-08-15 10:23 | DRG 69 ==
LOC: JD.ED 11:43 → JD.MS 15:43
PROVIDERS: ADMIT Family Medicine; ATTEND Family Medicine
PROC: 02HV33Z Insertion of Infusion Device into Superior Vena Cava, Percutaneous Approach (ICD-10-PCS; principal; 2024-08-13)
PROC: B548ZZA Ultrasonography of Superior Vena Cava, Guidance (ICD-10-PCS; 2024-08-13)
DX: G45.9 Transient cerebral ischemic attack, unspecified (principal); F10.230 Alcohol dependence with withdrawal, uncomplicated; G31.9 Degenerative disease of nervous system, unspecified; H54.7 Unspecified visual loss; K21.9 Gastro-esophageal reflux disease without esophagitis; M54.9 Dorsalgia, unspecified; M19.90 Unspecified osteoarthritis, unspecified site; G89.29 Other chronic pain; F41.9 Anxiety disorder, unspecified; F32.A Depression, unspecified; R56.9 Unspecified convulsions; E03.9 Hypothyroidism, unspecified; F17.210 Nicotine dependence, cigarettes, uncomplicated; K70.10 Alcoholic hepatitis without ascites; E66.9 Obesity, unspecified; Z86.16 Personal history of COVID-19; Z90.49 Acquired absence of other specified parts of digestive tract; Z79.890 Hormone replacement therapy; Z79.82 Long term (current) use of aspirin; Z79.899 Other long term (current) drug therapy; Z90.710 Acquired absence of both cervix and uterus; Z98.51 Tubal ligation status; Z98.890 Other specified postprocedural states; Z86.73 Personal history of transient ischemic attack (TIA), and cerebral infarction without residual deficits; Z88.2 Allergy status to sulfonamides; Z88.0 Allergy status to penicillin; Z88.8 Allergy status to other drugs, medicaments and biological substances; Z88.6 Allergy status to analgesic agent; Z68.34 Body mass index [BMI] 34.0-34.9, adult
CPT/HCPCS: 36415; 64450; 70450; 70450-26; 70496; 70496-26; 70498; 70498-26; 70551; 70551-26; 71045; 71045-26; 80053; 80061; 80306; 80307; 82550; 82607; 82947; 83036; 83735; 84443; 84484; 85025; 85610; 85730; 93005; 93010; 93306; 97110-GP; 97116-GP; 97161-GP; 99285; A9270-GY; C1751; J1650; J2060; J2405; J3490; J7030; Q9967

== ENCOUNTER 2024-09-11 19:37 | Emergency (ER) | payer MEDICAID ==
[2024-09-11] MEDS ORDERED: Sodium Chloride 0.9% 10 ML Syringe FLUSH PRN (20:53)
[2024-09-11 21:21] LABS: BASOPHILS PERCENT AUTO 0.5 % (0.0-1.0); EOSINOPHILS ABSOLUTE AUTO 0.1 K/mm3 (0.0-0.4); EOSINOPHILS PERCENT AUTO 1.7 % (0.0-6.0); HEMATOCRIT 39.1 % (37.0-47.0); HEMOGLOBIN 13.1 gm/dl (12.0-16.0); IMMATURE GRAN ABSOLUTE AUTO 0.01 K/mm3 (0.00-0.05); IMMATURE GRAN PERCENT AUTO 0.2 % (0.0-0.4); LYMPHOCYTES ABSOLUTE AUTO 2.1 K/mm3 (1.0-4.8); LYMPHOCYTES PERCENT AUTO 34.7 % (24.0-44.0); MEAN CORPUSCULAR HEMOGLOBIN 30.3 pg (28.0-32.0); MEAN CORPUSCULAR HGB CONC 33.5 g/dl (32.0-36.0); MEAN CORPUSCULAR VOLUME 90.5 fl (83.0-99.0); MEAN PLATELET VOLUME 9.8 fl (9.4-12.3); MONOCYTES ABSOLUTE AUTO 0.5 K/mm3 (0.0-0.8); MONOCYTES PERCENT AUTO 7.6 % (0.0-8.0); NEUTROPHILS ABSOLUTE AUTO 3.3 K/mm3 (1.8-7.7); NEUTROPHILS PERCENT AUTO 55.3 % (41.0-71.0); PLATELET COUNT,PLT 252 K/mm3 (150-400); RED BLOOD CELL COUNT 4.32 M/mm3 (4.10-5.30); WHITE BLOOD CELL COUNT,WBC 6.02 K/mm3 (3.9-11.3)
[2024-09-11] MEDS: Sodium Chloride 0.9% 1,000 ML IV ONE (21:27)
[2024-09-11] MEDS: LORazepam 2 MG/ML SDV IV ONE (21:27)
[2024-09-11 21:37] LABS: ALBUMIN 3.7 g/dl (3.4-5.0); ANION GAP 12.3 (5-15); BILIRUBIN TOTAL 0.4 mg/dL (0.2-1.0); BUN/CREATININE RATIO 8.9 (14-18); CALCIUM 9.1 mg/dL (8.5-10.1); CREATININE 0.9 mg/dL (0.55-1.02); EST CRCL DRUG DOSING (CG) 58.12 mL/min; POTASSIUM,K 3.3 mEq/L (3.5-5.1); PROTEIN TOTAL,TP 7.3 g/dl (6.4-8.2)
[2024-09-11] MEDS: LORazepam 1 MG Tab PO ONE (23:14)
[2024-09-11 23:24] VITALS: BP 108/74; PULSE 66
== END 2024-09-11 23:24 | disposition home or self-care (01) ==
LOC: JD.ED 19:37
DX: F10.230 Alcohol dependence with withdrawal, uncomplicated (principal); E78.00 Pure hypercholesterolemia, unspecified; I10 Essential (primary) hypertension; K21.9 Gastro-esophageal reflux disease without esophagitis; E03.9 Hypothyroidism, unspecified; Z88.5 Allergy status to narcotic agent; Z88.2 Allergy status to sulfonamides; Z88.0 Allergy status to penicillin; Z79.51 Long term (current) use of inhaled steroids; Z79.899 Other long term (current) drug therapy; Z86.16 Personal history of COVID-19; Z90.49 Acquired absence of other specified parts of digestive tract; Z87.891 Personal history of nicotine dependence; Y90.9 Presence of alcohol in blood, level not specified
CPT/HCPCS: 36415; 80053; 80307; 83735; 85025; 93005; 96361; 96374; 99285; A9270; J2060; J7030; 93010; 99283

== ENCOUNTER 2024-09-12 11:17 | Emergency (ER) | payer MEDICAID ==
[2024-09-12 11:29] VITALS: PULSE 73
[2024-09-12 12:36] LABS: BASOPHILS PERCENT AUTO 0.7 % (0.0-1.0); EOSINOPHILS ABSOLUTE AUTO 0.1 K/mm3 (0.0-0.4); EOSINOPHILS PERCENT AUTO 1.8 % (0.0-6.0); HEMATOCRIT 36.5 % (37.0-47.0); HEMOGLOBIN 12.1 gm/dl (12.0-16.0); IMMATURE GRAN ABSOLUTE AUTO 0.01 K/mm3 (0.00-0.05); IMMATURE GRAN PERCENT AUTO 0.2 % (0.0-0.4); LYMPHOCYTES ABSOLUTE AUTO 1.5 K/mm3 (1.0-4.8); LYMPHOCYTES PERCENT AUTO 24.3 % (24.0-44.0); MEAN CORPUSCULAR HEMOGLOBIN 30.3 pg (28.0-32.0); MEAN CORPUSCULAR HGB CONC 33.2 g/dl (32.0-36.0); MEAN CORPUSCULAR VOLUME 91.5 fl (83.0-99.0); MEAN PLATELET VOLUME 10.1 fl (9.4-12.3); MONOCYTES ABSOLUTE AUTO 0.5 K/mm3 (0.0-0.8); MONOCYTES PERCENT AUTO 8.4 % (0.0-8.0); NEUTROPHILS ABSOLUTE AUTO 3.9 K/mm3 (1.8-7.7); NEUTROPHILS PERCENT AUTO 64.6 % (41.0-71.0); PLATELET COUNT,PLT 212 K/mm3 (150-400); RED BLOOD CELL COUNT 3.99 M/mm3 (4.10-5.30); WHITE BLOOD CELL COUNT,WBC 6.09 K/mm3 (3.9-11.3)
[2024-09-12] MEDS: LORazepam 2 MG/ML SDV IVPUSH ONE ×2 (12:42→14:41)
[2024-09-12] MEDS: Ondansetron 4 MG/2 ML SDV IVPUSH ONE (12:42)
[2024-09-12] MEDS: Lactated Ringers 1,000 ML IV ONE (12:42)
[2024-09-12 12:58] LABS: A/G RATIO 1.1 (1-2); ALBUMIN 3.4 g/dl (3.4-5.0); ANION GAP 13.5 (5-15); BILIRUBIN TOTAL 0.4 mg/dL (0.2-1.0); BUN/CREATININE RATIO 11.1 (14-18); CALCIUM 8.7 mg/dL (8.5-10.1); CREATININE 0.9 mg/dL (0.55-1.02); EST CRCL DRUG DOSING (CG) 58.12 mL/min; POTASSIUM,K 3.5 mEq/L (3.5-5.1); PROTEIN TOTAL,TP 6.6 g/dl (6.4-8.2)
[2024-09-12 13:49] LABS: BARBITURATE SCREEN,URINE NEGATIVE (CUTOFF=200); BENZODIAZEPINES SCREEN,URINE PRESUMPTIVE POSITIVE (CUTOFF=150); BUPRENORPHINE SCREEN,URINE NEGATIVE (CUTOFF=10); METHADONE SCREEN, URINE NEGATIVE (CUTOFF=200); METHAMPHETAMINES SCREEN, URINE NEGATIVE (CUTOFF=500); OXYCODONE SCREEN,URINE NEGATIVE (CUT0FF=100); THC SCREEN,URINE 20 NG/ML NEGATIVE (CUTOFF=50)
[2024-09-12 13:50] LABS: AMPHETAMINES SCREEN, URINE NEGATIVE (CUTOFF=500)
[2024-09-12 19:40] VITALS: BP 122/81
== END 2024-09-12 15:10 | disposition home or self-care (01) ==
LOC: JD.ED 11:17
DX: F10.230 Alcohol dependence with withdrawal, uncomplicated (principal); E78.00 Pure hypercholesterolemia, unspecified; I10 Essential (primary) hypertension; K21.9 Gastro-esophageal reflux disease without esophagitis; Z86.16 Personal history of COVID-19; Z87.891 Personal history of nicotine dependence; Z88.5 Allergy status to narcotic agent; Z88.2 Allergy status to sulfonamides; Z88.0 Allergy status to penicillin; Z88.8 Allergy status to other drugs, medicaments and biological substances; Z79.899 Other long term (current) drug therapy; Y90.9 Presence of alcohol in blood, level not specified
CPT/HCPCS: 36415; 80053; 80306; 80307; 85025; 96361; 96374; 96375; 96376; 99283; 99285-25; J2060; J2405; J7120

== ENCOUNTER 2024-10-01 13:57 | Emergency (ER) | payer MEDICAID ==
[2024-10-01 15:17] LABS: APPEARANCE,URINE CLEAR (Clear); GLUCOSE,URINE NEGATIVE (Negative); OCCULT BLOOD,URINE NEGATIVE (Negative)
[2024-10-01] MEDS: Acetaminophen/HYDROcodone 325-5 MG Tab PO ONE (15:20)
[2024-10-01 15:26] LABS: BUPRENORPHINE SCREEN,URINE NEGATIVE (CUTOFF=10); METHADONE SCREEN, URINE NEGATIVE (CUTOFF=200); METHAMPHETAMINES SCREEN, URINE NEGATIVE (CUTOFF=500); OXYCODONE SCREEN,URINE NEGATIVE (CUT0FF=100); THC SCREEN,URINE 20 NG/ML NEGATIVE (CUTOFF=50)
[2024-10-01 15:32] VITALS: BP 124/81; PULSE 78
[2024-10-01 15:37] LABS: EPITHELIAL CELLS,URINE 30-40 /hpf (0-5)
[2024-10-01 15:39] LABS: AMPHETAMINES SCREEN, URINE NEGATIVE (CUTOFF=500)
== END 2024-10-01 15:31 | disposition home or self-care (01) ==
LOC: JD.ED 13:57
DX: S76.012A Strain of muscle, fascia and tendon of left hip, initial encounter (principal); I10 Essential (primary) hypertension; E78.00 Pure hypercholesterolemia, unspecified; K21.9 Gastro-esophageal reflux disease without esophagitis; E03.9 Hypothyroidism, unspecified; E66.9 Obesity, unspecified; Z86.16 Personal history of COVID-19; Z90.710 Acquired absence of both cervix and uterus; Z79.899 Other long term (current) drug therapy; Z79.01 Long term (current) use of anticoagulants; Z79.02 Long term (current) use of antithrombotics/antiplatelets; Z88.8 Allergy status to other drugs, medicaments and biological substances; Z88.6 Allergy status to analgesic agent; Z88.5 Allergy status to narcotic agent; Z88.0 Allergy status to penicillin; Z88.2 Allergy status to sulfonamides; Z68.37 Body mass index [BMI] 37.0-37.9, adult; X50.9XXA Other and unspecified overexertion or strenuous movements or postures, initial encounter; Y93.01 Activity, walking, marching and hiking
CPT/HCPCS: 80306; 81001; 99283; A9270

== ENCOUNTER 2024-12-02 15:17 | Emergency (ER) | payer MEDICAID ==
[2024-12-02 16:23] VITALS: BP 132/102; PULSE 98
[2024-12-02] MEDS ORDERED: Naloxone 0.4 MG/ML SDV IVPUSH PRN ×2 (18:39→20:25)
[2024-12-02 18:50] LABS: BASOPHILS ABSOLUTE AUTO 0.1 K/mm3 (0.0-0.2); BASOPHILS PERCENT AUTO 0.6 % (0.0-1.0); EOSINOPHILS ABSOLUTE AUTO 0.2 K/mm3 (0.0-0.4); EOSINOPHILS PERCENT AUTO 2.3 % (0.0-6.0); IMMATURE GRAN ABSOLUTE AUTO 0.03 K/mm3 (0.00-0.05); IMMATURE GRAN PERCENT AUTO 0.3 % (0.0-0.4); LYMPHOCYTES ABSOLUTE AUTO 2.4 K/mm3 (1.0-4.8); LYMPHOCYTES PERCENT AUTO 27.6 % (24.0-44.0); MEAN PLATELET VOLUME 10.0 fl (9.4-12.3); MONOCYTES ABSOLUTE AUTO 0.6 K/mm3 (0.0-0.8); MONOCYTES PERCENT AUTO 6.6 % (0.0-8.0); NEUTROPHILS ABSOLUTE AUTO 5.5 K/mm3 (1.8-7.7); NEUTROPHILS PERCENT AUTO 62.6 % (41.0-71.0); NRBC ABSOLUTE 0.00 (0.00-0.02); NRBC PERCENT 0.0 % (0.0-0.2); PLATELET COUNT,PLT 382 K/mm3 (150-400); RED BLOOD CELL COUNT 4.89 M/mm3 (4.10-5.30); WHITE BLOOD CELL COUNT,WBC 8.73 K/mm3 (3.9-11.3)
[2024-12-02 18:51] LABS: APPEARANCE,URINE CLOUDY (Clear); GLUCOSE,URINE NEGATIVE (Negative); OCCULT BLOOD,URINE 2+ (Negative)
[2024-12-02] MEDS ORDERED: Sodium Chloride 0.9% 10 ML Syringe FLUSH PRN (19:01)
[2024-12-02 19:02] LABS: WBC CLUMPS,URINE FEW /hpf (NOT SEEN)
[2024-12-02 19:17] LABS: A/G RATIO 1.1 (1-2); ALANINE AMINOTRANSFERASE,ALT 25.0 U/L (14-59); ASPARTATE AMNIOTRANSFERASE,AST 14.0 U/L (15-37); BILIRUBIN TOTAL 0.4 mg/dL (0.2-1.0); BLOOD UREA NITROGEN,BUN 13.0 mg/dL (7-18); CARBON DIOXIDE,CO2 27.0 mEq/L (21-32); CHLORIDE,CL 102.0 mEq/L (98-107); CREATININE 1.0 mg/dL (0.55-1.02); EST CRCL DRUG DOSING (CG) 51.66 mL/min; ESTIMATED GFR 64.0 mL/min (>60); GLUCOSE RANDOM 94.0 mg/dL (70-99); POTASSIUM,K 3.9 mEq/L (3.5-5.1); PROTEIN TOTAL,TP 8.0 g/dl (6.4-8.2); SODIUM,NA 138.0 mEq/L (136-145)
[2024-12-02] MEDS: Iopamidol 612 MG/ML 100 ML Bottle IVPUSH ONE (19:40)
[2024-12-02] MEDS: Sodium Chloride 0.9% 10 ML Syringe FLUSH PRN (19:40)
[2024-12-02] MEDS: Ondansetron 4 MG/2 ML SDV IVPUSH ONE (21:01)
== END 2024-12-02 21:17 | disposition home or self-care (01) ==
LOC: JD.ED 15:17
DX: R10.32 Left lower quadrant pain (principal); R10.31 Right lower quadrant pain; I10 Essential (primary) hypertension; E66.9 Obesity, unspecified; E78.00 Pure hypercholesterolemia, unspecified; K21.9 Gastro-esophageal reflux disease without esophagitis; Z79.899 Other long term (current) drug therapy; Z88.2 Allergy status to sulfonamides; Z88.8 Allergy status to other drugs, medicaments and biological substances; Z88.0 Allergy status to penicillin; Z90.710 Acquired absence of both cervix and uterus; Z86.16 Personal history of COVID-19; Z68.38 Body mass index [BMI] 38.0-38.9, adult
CPT/HCPCS: 36415; 74177; 80053; 81001; 85025; 86140; 87086; 96374; 96375; 96376; 99284; J2405; Q9967; J1171

== ENCOUNTER 2024-12-05 13:06 | Emergency (ER) | payer MEDICAID ==
[2024-12-05] MEDS ORDERED: Iopamidol 612 MG/ML 30 ML SDV IVPUSH ONE (14:04)
[2024-12-05 14:47] LABS: BASOPHILS ABSOLUTE AUTO 0.0 K/mm3 (0.0-0.2); BASOPHILS PERCENT AUTO 0.6 % (0.0-1.0); EOSINOPHILS ABSOLUTE AUTO 0.2 K/mm3 (0.0-0.4); EOSINOPHILS PERCENT AUTO 2.8 % (0.0-6.0); IMMATURE GRAN ABSOLUTE AUTO 0.03 K/mm3 (0.00-0.05); IMMATURE GRAN PERCENT AUTO 0.5 % (0.0-0.4); LYMPHOCYTES ABSOLUTE AUTO 1.9 K/mm3 (1.0-4.8); LYMPHOCYTES PERCENT AUTO 30.2 % (24.0-44.0); MEAN PLATELET VOLUME 10.0 fl (9.4-12.3); MONOCYTES ABSOLUTE AUTO 0.5 K/mm3 (0.0-0.8); MONOCYTES PERCENT AUTO 7.7 % (0.0-8.0); NEUTROPHILS ABSOLUTE AUTO 3.7 K/mm3 (1.8-7.7); NEUTROPHILS PERCENT AUTO 58.2 % (41.0-71.0); NRBC ABSOLUTE 0.00 (0.00-0.02); NRBC PERCENT 0.0 % (0.0-0.2); PLATELET COUNT,PLT 347 K/mm3 (150-400); RED BLOOD CELL COUNT 4.54 M/mm3 (4.10-5.30); WHITE BLOOD CELL COUNT,WBC 6.40 K/mm3 (3.9-11.3)
[2024-12-05] MEDS: Ondansetron 4 MG/2 ML SDV IVPUSH ONE (15:05)
[2024-12-05] MEDS: Sodium Chloride 0.9% 10 ML Syringe FLUSH ONE (15:14)
[2024-12-05] MEDS: Iopamidol 612 MG/ML 100 ML Bottle IVPUSH ONE (15:25)
[2024-12-05] MEDS: Sodium Chloride 0.9% 10 ML Syringe FLUSH PRN (15:25)
[2024-12-05 15:43] LABS: A/G RATIO 1.0 (1-2); BILIRUBIN TOTAL 0.5 mg/dL (0.2-1.0); BLOOD UREA NITROGEN,BUN 11 mg/dL (7-18); CARBON DIOXIDE,CO2 26 mEq/L (21-32); CHLORIDE,CL 103 mEq/L (98-107); CREATININE 0.8 mg/dL (0.55-1.02); EST CRCL DRUG DOSING (CG) 64.58 mL/min; ESTIMATED GFR 84 mL/min (>60); PROTEIN TOTAL,TP 7.3 g/dl (6.4-8.2); SODIUM,NA 140 mEq/L (136-145)
[2024-12-05 16:06] LABS: APPEARANCE,URINE CLEAR (Clear); GLUCOSE,URINE NEGATIVE (Negative); OCCULT BLOOD,URINE 2+ (Negative)
[2024-12-05 16:14] LABS: EPITHELIAL CELLS,URINE 0-5 /hpf (0-5)
[2024-12-05 16:14] LABS: GLUCOSE RANDOM 115 mg/dL (70-99); POTASSIUM,K 4.0 mEq/L (3.5-5.1)
[2024-12-05 16:15] LABS: ASPARTATE AMNIOTRANSFERASE,AST 19 U/L (15-37)
[2024-12-05 17:15] VITALS: BP 129/86; PULSE 79
== END 2024-12-05 17:14 | disposition home or self-care (01) ==
LOC: JD.ED 13:06
DX: R10.11 Right upper quadrant pain (principal); E78.00 Pure hypercholesterolemia, unspecified; I10 Essential (primary) hypertension; K21.9 Gastro-esophageal reflux disease without esophagitis; E03.9 Hypothyroidism, unspecified; Z86.16 Personal history of COVID-19; Z90.49 Acquired absence of other specified parts of digestive tract; Z88.5 Allergy status to narcotic agent; Z88.0 Allergy status to penicillin; Z88.2 Allergy status to sulfonamides; Z79.899 Other long term (current) drug therapy; Z79.82 Long term (current) use of aspirin
CPT/HCPCS: 36415; 74177; 80053; 81001; 83690; 85025; 96361; 96374; 96375; 96376; 99284; J2405; J7030; Q9967; J1171

== ENCOUNTER 2024-12-14 15:14 | Emergency (ER) | payer MEDICAID ==
[2024-12-14] MEDS ORDERED: Iopamidol 612 MG/ML 30 ML SDV IVPUSH ONE (16:34)
[2024-12-14] MEDS: Sodium Chloride 0.9% 10 ML Syringe FLUSH PRN (16:35)
[2024-12-14] MEDS: Sodium Chloride 0.9% 10 ML Syringe FLUSH ONE (16:56)
[2024-12-14] MEDS: Iopamidol 612 MG/ML 100 ML Bottle IVPUSH ONE (16:56)
[2024-12-14] MEDS: Ondansetron 4 MG/2 ML SDV IVPUSH ONE (16:57)
[2024-12-14 17:20] LABS: BASOPHILS ABSOLUTE AUTO 0.0 K/mm3 (0.0-0.2); BASOPHILS PERCENT AUTO 0.6 % (0.0-1.0); EOSINOPHILS ABSOLUTE AUTO 0.2 K/mm3 (0.0-0.4); EOSINOPHILS PERCENT AUTO 2.6 % (0.0-6.0); IMMATURE GRAN ABSOLUTE AUTO 0.02 K/mm3 (0.00-0.05); IMMATURE GRAN PERCENT AUTO 0.3 % (0.0-0.4); LYMPHOCYTES ABSOLUTE AUTO 2.2 K/mm3 (1.0-4.8); LYMPHOCYTES PERCENT AUTO 34.8 % (24.0-44.0); MEAN PLATELET VOLUME 10.0 fl (9.4-12.3); MONOCYTES ABSOLUTE AUTO 0.5 K/mm3 (0.0-0.8); MONOCYTES PERCENT AUTO 8.1 % (0.0-8.0); NEUTROPHILS ABSOLUTE AUTO 3.3 K/mm3 (1.8-7.7); NEUTROPHILS PERCENT AUTO 53.6 % (41.0-71.0); NRBC ABSOLUTE 0.00 (0.00-0.02); NRBC PERCENT 0.0 % (0.0-0.2); PLATELET COUNT,PLT 287 K/mm3 (150-400); RED BLOOD CELL COUNT 3.94 M/mm3 (4.10-5.30); WHITE BLOOD CELL COUNT,WBC 6.20 K/mm3 (3.9-11.3)
[2024-12-14 17:42] LABS: A/G RATIO 1.1 (1-2); ALANINE AMINOTRANSFERASE,ALT 20.0 U/L (14-59); ASPARTATE AMNIOTRANSFERASE,AST 12.0 U/L (15-37); BILIRUBIN TOTAL 0.4 mg/dL (0.2-1.0); BLOOD UREA NITROGEN,BUN 12.0 mg/dL (7-18); CARBON DIOXIDE,CO2 27.0 mEq/L (21-32); CHLORIDE,CL 104.0 mEq/L (98-107); CREATININE 1.0 mg/dL (0.55-1.02); EST CRCL DRUG DOSING (CG) 51.66 mL/min; ESTIMATED GFR 64.0 mL/min (>60); GLUCOSE RANDOM 97.0 mg/dL (70-99); POTASSIUM,K 3.3 mEq/L (3.5-5.1); PROTEIN TOTAL,TP 6.4 g/dl (6.4-8.2); SODIUM,NA 141.0 mEq/L (136-145)
[2024-12-14] MEDS ORDERED: Naloxone 0.4 MG/ML SDV IVPUSH PRN (17:51)
[2024-12-14] MEDS: Potassium Chloride 20 MEQ Tab.ER PO ONE (18:25)
[2024-12-14 19:04] VITALS: BP 118/72; PULSE 80
== END 2024-12-14 18:10 | disposition home or self-care (01) ==
LOC: JD.ED 15:14
DX: R10.11 Right upper quadrant pain (principal); E78.00 Pure hypercholesterolemia, unspecified; I10 Essential (primary) hypertension; K21.9 Gastro-esophageal reflux disease without esophagitis; E03.9 Hypothyroidism, unspecified; Z88.8 Allergy status to other drugs, medicaments and biological substances; Z88.0 Allergy status to penicillin; Z88.5 Allergy status to narcotic agent; Z88.2 Allergy status to sulfonamides; Z79.82 Long term (current) use of aspirin; Z79.899 Other long term (current) drug therapy; Z79.02 Long term (current) use of antithrombotics/antiplatelets; Z86.16 Personal history of COVID-19; Z90.49 Acquired absence of other specified parts of digestive tract
CPT/HCPCS: 36415; 74177; 80053; 83690; 85025; 86140; 96374; 96375; 96376; 99284; A9270; J2405; Q9967; J1171

== ENCOUNTER 2024-12-30 15:35 | Emergency (ER) | payer MEDICAID ==
[2024-12-30] MEDS: Alum Hydrox/Mag Hydrox/Simeth 30 ML, Lidocaine 2% 15 ML PO ONE (16:20)
[2024-12-30 16:34] LABS: BASOPHILS ABSOLUTE AUTO 0.1 K/mm3 (0.0-0.2); BASOPHILS PERCENT AUTO 0.7 % (0.0-1.0); EOSINOPHILS ABSOLUTE AUTO 0.2 K/mm3 (0.0-0.4); EOSINOPHILS PERCENT AUTO 2.9 % (0.0-6.0); IMMATURE GRAN ABSOLUTE AUTO 0.02 K/mm3 (0.00-0.05); IMMATURE GRAN PERCENT AUTO 0.3 % (0.0-0.4); LYMPHOCYTES ABSOLUTE AUTO 2.3 K/mm3 (1.0-4.8); LYMPHOCYTES PERCENT AUTO 32.3 % (24.0-44.0); MEAN PLATELET VOLUME 9.3 fl (9.4-12.3); MONOCYTES ABSOLUTE AUTO 0.4 K/mm3 (0.0-0.8); MONOCYTES PERCENT AUTO 6.0 % (0.0-8.0); NEUTROPHILS ABSOLUTE AUTO 4.1 K/mm3 (1.8-7.7); NEUTROPHILS PERCENT AUTO 57.8 % (41.0-71.0); NRBC ABSOLUTE 0.00 (0.00-0.02); NRBC PERCENT 0.0 % (0.0-0.2); PLATELET COUNT,PLT 292 K/mm3 (150-400); RED BLOOD CELL COUNT 4.33 M/mm3 (4.10-5.30); WHITE BLOOD CELL COUNT,WBC 7.13 K/mm3 (3.9-11.3)
[2024-12-30 17:00] LABS: A/G RATIO 1.1 (1-2); ALANINE AMINOTRANSFERASE,ALT 19 U/L (14-59); ASPARTATE AMNIOTRANSFERASE,AST 10 U/L (15-37); BILIRUBIN TOTAL 0.2 mg/dL (0.2-1.0); BLOOD UREA NITROGEN,BUN 11 mg/dL (7-18); CARBON DIOXIDE,CO2 26 mEq/L (21-32); CHLORIDE,CL 107 mEq/L (98-107); CREATININE 1.0 mg/dL (0.55-1.02); EST CRCL DRUG DOSING (CG) 51.66 mL/min; ESTIMATED GFR 64 mL/min (>60); GLUCOSE RANDOM 137 mg/dL (70-99); POTASSIUM,K 3.3 mEq/L (3.5-5.1); PROTEIN TOTAL,TP 6.8 g/dl (6.4-8.2); SODIUM,NA 143 mEq/L (136-145)
[2024-12-30 17:01] LABS: TROPONIN I HIGH SENSITIVITY < 4 pg/mL (<=51)
[2024-12-30] MEDS: Acetaminophen/HYDROcodone 325-5 MG Tab PO ONE (17:16)
[2024-12-30] MEDS: Potassium Chloride 20 MEQ Tab.ER PO ONE (17:16)
[2024-12-30 19:11] VITALS: BP 120/72; PULSE 75
== END 2024-12-30 18:23 | disposition home or self-care (01) ==
LOC: JD.ED 15:35
DX: R07.89 Other chest pain (principal); I10 Essential (primary) hypertension; E78.00 Pure hypercholesterolemia, unspecified; K21.9 Gastro-esophageal reflux disease without esophagitis; M19.90 Unspecified osteoarthritis, unspecified site; E66.9 Obesity, unspecified; Z68.39 Body mass index [BMI] 39.0-39.9, adult; Z90.49 Acquired absence of other specified parts of digestive tract; Z90.710 Acquired absence of both cervix and uterus; Z86.16 Personal history of COVID-19; Z88.0 Allergy status to penicillin; Z88.2 Allergy status to sulfonamides; Z88.5 Allergy status to narcotic agent; Z88.8 Allergy status to other drugs, medicaments and biological substances; Z79.82 Long term (current) use of aspirin; Z79.899 Other long term (current) drug therapy
CPT/HCPCS: 36415; 71045; 80053; 83735; 84484; 85025; 99285; A9270; J3490; 93010; 99284

== ENCOUNTER 2025-01-14 15:51 | Emergency (ER) | payer MEDICAID ==
[2025-01-14] MEDS: LORazepam 2 MG/ML SDV IM STA (16:31)
[2025-01-14] MEDS: Ondansetron 4 MG Tab.DIS PO ONE (16:33)
[2025-01-14 17:12] VITALS: BP 152/112; PULSE 94
== END 2025-01-14 17:12 | disposition home or self-care (01) ==
LOC: JD.ED 15:51
DX: G43.919 Migraine, unspecified, intractable, without status migrainosus (principal); I10 Essential (primary) hypertension; E78.00 Pure hypercholesterolemia, unspecified; K21.9 Gastro-esophageal reflux disease without esophagitis; E66.9 Obesity, unspecified; Z79.899 Other long term (current) drug therapy; Z88.8 Allergy status to other drugs, medicaments and biological substances; Z88.2 Allergy status to sulfonamides; Z86.16 Personal history of COVID-19; Z90.49 Acquired absence of other specified parts of digestive tract; Z90.710 Acquired absence of both cervix and uterus
CPT/HCPCS: 96372; 99283; A9270; J2060; 99284

== ENCOUNTER 2025-01-15 16:57 | Emergency (ER) | payer MEDICAID ==
[2025-01-15 17:28] VITALS: BP 140/96; PULSE 87
== END 2025-01-15 17:28 | disposition home or self-care (01) ==
LOC: JD.ED 16:57
DX: R41.0 Disorientation, unspecified (principal); I10 Essential (primary) hypertension; E78.00 Pure hypercholesterolemia, unspecified; K21.9 Gastro-esophageal reflux disease without esophagitis; E03.9 Hypothyroidism, unspecified; Z86.16 Personal history of COVID-19; Z90.49 Acquired absence of other specified parts of digestive tract; Z88.5 Allergy status to narcotic agent; Z88.0 Allergy status to penicillin; Z88.8 Allergy status to other drugs, medicaments and biological substances; Z79.899 Other long term (current) drug therapy; Z79.82 Long term (current) use of aspirin; Z79.02 Long term (current) use of antithrombotics/antiplatelets
CPT/HCPCS: 99284

== ENCOUNTER 2025-02-11 04:50 | Emergency (ER) | payer MEDICAID ==
[2025-02-11] MEDS: Thiamine 200 MG/2 ML MDV IVPUSH ONE (05:58)
[2025-02-11] MEDS: LORazepam 2 MG/ML SDV IVPUSH STA (05:58)
[2025-02-11] MEDS: Multivitamins with Minerals/Folic Acid/Lutein/Zeaxanth Tab PO STA (06:08)
[2025-02-11 06:15] LABS: BASOPHILS ABSOLUTE AUTO 0.0 K/mm3 (0.0-0.2); BASOPHILS PERCENT AUTO 0.6 % (0.0-1.0); EOSINOPHILS ABSOLUTE AUTO 0.1 K/mm3 (0.0-0.4); EOSINOPHILS PERCENT AUTO 1.9 % (0.0-6.0); IMMATURE GRAN ABSOLUTE AUTO 0.02 K/mm3 (0.00-0.05); IMMATURE GRAN PERCENT AUTO 0.3 % (0.0-0.4); LYMPHOCYTES ABSOLUTE AUTO 1.2 K/mm3 (1.0-4.8); LYMPHOCYTES PERCENT AUTO 18.1 % (24.0-44.0); MEAN PLATELET VOLUME 9.2 fl (9.4-12.3); MONOCYTES ABSOLUTE AUTO 0.5 K/mm3 (0.0-0.8); MONOCYTES PERCENT AUTO 6.8 % (0.0-8.0); NEUTROPHILS ABSOLUTE AUTO 4.9 K/mm3 (1.8-7.7); NEUTROPHILS PERCENT AUTO 72.3 % (41.0-71.0); NRBC ABSOLUTE 0.00 (0.00-0.02); NRBC PERCENT 0.0 % (0.0-0.2); PLATELET COUNT,PLT 249 K/mm3 (150-400); RED BLOOD CELL COUNT 4.33 M/mm3 (4.10-5.30); WHITE BLOOD CELL COUNT,WBC 6.80 K/mm3 (3.9-11.3)
[2025-02-11 06:15] LABS: BUPRENORPHINE SCREEN,URINE NEGATIVE (CUTOFF=10); METHADONE SCREEN, URINE NEGATIVE (CUTOFF=200); METHAMPHETAMINES SCREEN, URINE NEGATIVE (CUTOFF=500); OXYCODONE SCREEN,URINE NEGATIVE (CUT0FF=100); THC SCREEN,URINE 20 NG/ML NEGATIVE (CUTOFF=50)
[2025-02-11 06:20] LABS: AMPHETAMINES SCREEN, URINE NEGATIVE (CUTOFF=500)
[2025-02-11 06:37] LABS: A/G RATIO 1.0 (1-2); ALANINE AMINOTRANSFERASE,ALT 22.0 U/L (14-59); ASPARTATE AMNIOTRANSFERASE,AST 25.0 U/L (15-37); BILIRUBIN TOTAL 0.9 mg/dL (0.2-1.0); BLOOD UREA NITROGEN,BUN 11.0 mg/dL (7-18); CARBON DIOXIDE,CO2 26.0 mEq/L (21-32); CHLORIDE,CL 106.0 mEq/L (98-107); CREATINE KINASE,CK 47.0 U/L (26-192); CREATININE 1.1 mg/dL (0.55-1.02); EST CRCL DRUG DOSING (CG) 46.96 mL/min; ESTIMATED GFR 58.0 mL/min (>60); GLUCOSE RANDOM 116.0 mg/dL (70-99); POTASSIUM,K 3.2 mEq/L (3.5-5.1); PROTEIN TOTAL,TP 6.1 g/dl (6.4-8.2); SODIUM,NA 142.0 mEq/L (136-145)
[2025-02-11 06:40] LABS: ETHANOL BLOOD MEDICAL 0.0 gm% (0.00)
[2025-02-11] MEDS: Potassium Chloride 20 MEQ Tab.ER PO ONE (06:51)
[2025-02-11] MEDS: LORazepam 2 MG/ML SDV IVPUSH ONE (08:16)
[2025-02-11 09:32] VITALS: BP 144/92; PULSE 79
== END 2025-02-11 09:20 | disposition home or self-care (01) ==
LOC: JD.ED 04:50
DX: F10.220 Alcohol dependence with intoxication, uncomplicated (principal); I10 Essential (primary) hypertension; K21.9 Gastro-esophageal reflux disease without esophagitis; E86.0 Dehydration; E66.9 Obesity, unspecified; E03.9 Hypothyroidism, unspecified; F17.200 Nicotine dependence, unspecified, uncomplicated; Z68.39 Body mass index [BMI] 39.0-39.9, adult; Z88.0 Allergy status to penicillin; Z88.2 Allergy status to sulfonamides; Z88.5 Allergy status to narcotic agent; Z88.8 Allergy status to other drugs, medicaments and biological substances; Z79.82 Long term (current) use of aspirin; Z79.899 Other long term (current) drug therapy; Z86.16 Personal history of COVID-19; Z90.49 Acquired absence of other specified parts of digestive tract; Z90.710 Acquired absence of both cervix and uterus
CPT/HCPCS: 36415; 80053; 80306; 80307; 82550; 83690; 83735; 85025; 93005; 96365; 96375; 96376; 99285; A9270; J2060; J3411; J3475; J7030; 93010; 99283

== ENCOUNTER 2025-02-15 13:04 | Emergency (ER) | payer MEDICAID ==
[2025-02-15 14:18] LABS: BASOPHILS ABSOLUTE AUTO 0.0 K/mm3 (0.0-0.2); BASOPHILS PERCENT AUTO 0.6 % (0.0-1.0); EOSINOPHILS ABSOLUTE AUTO 0.1 K/mm3 (0.0-0.4); EOSINOPHILS PERCENT AUTO 2.5 % (0.0-6.0); IMMATURE GRAN ABSOLUTE AUTO 0.02 K/mm3 (0.00-0.05); IMMATURE GRAN PERCENT AUTO 0.4 % (0.0-0.4); LYMPHOCYTES ABSOLUTE AUTO 2.1 K/mm3 (1.0-4.8); LYMPHOCYTES PERCENT AUTO 43.2 % (24.0-44.0); MEAN PLATELET VOLUME 8.8 fl (9.4-12.3); MONOCYTES ABSOLUTE AUTO 0.4 K/mm3 (0.0-0.8); MONOCYTES PERCENT AUTO 8.3 % (0.0-8.0); NEUTROPHILS ABSOLUTE AUTO 2.2 K/mm3 (1.8-7.7); NEUTROPHILS PERCENT AUTO 45.0 % (41.0-71.0); NRBC ABSOLUTE 0.00 (0.00-0.02); NRBC PERCENT 0.0 % (0.0-0.2); PLATELET COUNT,PLT 262 K/mm3 (150-400); RED BLOOD CELL COUNT 4.43 M/mm3 (4.10-5.30); WHITE BLOOD CELL COUNT,WBC 4.84 K/mm3 (3.9-11.3)
[2025-02-15 14:48] LABS: A/G RATIO 1.0 (1-2); ALANINE AMINOTRANSFERASE,ALT 26.0 U/L (14-59); ASPARTATE AMNIOTRANSFERASE,AST 28.0 U/L (15-37); BILIRUBIN TOTAL 0.3 mg/dL (0.2-1.0); BLOOD UREA NITROGEN,BUN 16.0 mg/dL (7-18); CARBON DIOXIDE,CO2 26.0 mEq/L (21-32); CHLORIDE,CL 107.0 mEq/L (98-107); CREATININE 0.9 mg/dL (0.55-1.02); EST CRCL DRUG DOSING (CG) 57.4 mL/min; ESTIMATED GFR 73.0 mL/min (>60); ETHANOL BLOOD MEDICAL 0.17 gm% (0.00); GLUCOSE RANDOM 100.0 mg/dL (70-99); POTASSIUM,K 3.7 mEq/L (3.5-5.1); PROTEIN TOTAL,TP 6.7 g/dl (6.4-8.2); SODIUM,NA 142.0 mEq/L (136-145); TSH 0.701 uIU/mL (0.358-3.74)
[2025-02-15 15:56] LABS: BUPRENORPHINE SCREEN,URINE NEGATIVE (CUTOFF=10); METHADONE SCREEN, URINE NEGATIVE (CUTOFF=200); METHAMPHETAMINES SCREEN, URINE NEGATIVE (CUTOFF=500); OXYCODONE SCREEN,URINE NEGATIVE (CUT0FF=100); THC SCREEN,URINE 20 NG/ML NEGATIVE (CUTOFF=50)
[2025-02-15 15:58] LABS: AMPHETAMINES SCREEN, URINE NEGATIVE (CUTOFF=500)
[2025-02-15 17:15] VITALS: BP 161/118; PULSE 84
== END 2025-02-15 17:10 | disposition home or self-care (01) ==
LOC: JD.ED 13:04
DX: Z02.89 Encounter for other administrative examinations (principal); F10.120 Alcohol abuse with intoxication, uncomplicated; I10 Essential (primary) hypertension; K21.9 Gastro-esophageal reflux disease without esophagitis; E66.9 Obesity, unspecified; F17.200 Nicotine dependence, unspecified, uncomplicated; Z86.16 Personal history of COVID-19; Z90.49 Acquired absence of other specified parts of digestive tract; Z90.710 Acquired absence of both cervix and uterus; Z88.0 Allergy status to penicillin; Z88.2 Allergy status to sulfonamides; Z88.5 Allergy status to narcotic agent; Z88.8 Allergy status to other drugs, medicaments and biological substances; Z79.899 Other long term (current) drug therapy; Y90.0 Blood alcohol level of less than 20 mg/100 ml; Z68.36 Body mass index [BMI] 36.0-36.9, adult
CPT/HCPCS: 36415; 80053; 80143; 80179; 80306; 80307; 84443; 85025; 93005; 93010; 99283; 99284

== ENCOUNTER 2025-02-19 04:06 | Emergency (ER) | payer MEDICAID ==
[2025-02-19] MEDS ORDERED: LORazepam 2 MG/ML SDV IVPUSH PRN (04:21)
[2025-02-19 04:52] LABS: BASOPHILS ABSOLUTE AUTO 0.0 K/mm3 (0.0-0.2); BASOPHILS PERCENT AUTO 0.7 % (0.0-1.0); EOSINOPHILS ABSOLUTE AUTO 0.1 K/mm3 (0.0-0.4); EOSINOPHILS PERCENT AUTO 2.4 % (0.0-6.0); IMMATURE GRAN ABSOLUTE AUTO 0.01 K/mm3 (0.00-0.05); IMMATURE GRAN PERCENT AUTO 0.2 % (0.0-0.4); LYMPHOCYTES ABSOLUTE AUTO 1.4 K/mm3 (1.0-4.8); LYMPHOCYTES PERCENT AUTO 26.5 % (24.0-44.0); MEAN PLATELET VOLUME 9.1 fl (9.4-12.3); MONOCYTES ABSOLUTE AUTO 0.5 K/mm3 (0.0-0.8); MONOCYTES PERCENT AUTO 8.4 % (0.0-8.0); NEUTROPHILS ABSOLUTE AUTO 3.3 K/mm3 (1.8-7.7); NEUTROPHILS PERCENT AUTO 61.8 % (41.0-71.0); NRBC ABSOLUTE 0.00 (0.00-0.02); NRBC PERCENT 0.0 % (0.0-0.2); PLATELET COUNT,PLT 261 K/mm3 (150-400); RED BLOOD CELL COUNT 4.65 M/mm3 (4.10-5.30); WHITE BLOOD CELL COUNT,WBC 5.36 K/mm3 (3.9-11.3)
[2025-02-19] MEDS: Thiamine 200 MG/2 ML MDV IVPUSH ONE (05:11)
[2025-02-19] MEDS: Ondansetron 4 MG/2 ML SDV IV STA (05:12)
[2025-02-19 05:16] LABS: A/G RATIO 1.0 (1-2); ALANINE AMINOTRANSFERASE,ALT 31.0 U/L (14-59); ASPARTATE AMNIOTRANSFERASE,AST 40.0 U/L (15-37); BILIRUBIN TOTAL 0.6 mg/dL (0.2-1.0); BLOOD UREA NITROGEN,BUN 11.0 mg/dL (7-18); CARBON DIOXIDE,CO2 26.0 mEq/L (21-32); CHLORIDE,CL 107.0 mEq/L (98-107); CREATINE KINASE,CK 56.0 U/L (26-192); CREATININE 0.9 mg/dL (0.55-1.02); EST CRCL DRUG DOSING (CG) 59.81 mL/min; ESTIMATED GFR 73.0 mL/min (>60); GLUCOSE RANDOM 109.0 mg/dL (70-99); POTASSIUM,K 3.6 mEq/L (3.5-5.1); PROTEIN TOTAL,TP 7.1 g/dl (6.4-8.2); SODIUM,NA 144.0 mEq/L (136-145)
[2025-02-19] MEDS: Multivitamins with Minerals/Folic Acid/Lutein/Zeaxanth Tab PO STA (05:18)
[2025-02-19] MEDS: Ondansetron 4 MG Tab.DIS PO ONE (05:18)
[2025-02-19 05:23] LABS: ETHANOL BLOOD MEDICAL 0.0 gm% (0.00)
[2025-02-19 06:06] LABS: BUPRENORPHINE SCREEN,URINE NEGATIVE (CUTOFF=10); METHADONE SCREEN, URINE NEGATIVE (CUTOFF=200); METHAMPHETAMINES SCREEN, URINE NEGATIVE (CUTOFF=500); OXYCODONE SCREEN,URINE NEGATIVE (CUT0FF=100); THC SCREEN,URINE 20 NG/ML NEGATIVE (CUTOFF=50)
[2025-02-19 06:07] LABS: AMPHETAMINES SCREEN, URINE NEGATIVE (CUTOFF=500)
[2025-02-19] MEDS: LORazepam 2 MG/ML SDV IM STA (06:15)
[2025-02-19 07:25] VITALS: BP 133/90; PULSE 92
== END 2025-02-19 07:25 | disposition other institution (70) ==
LOC: JD.ED 04:06
DX: F10.10 Alcohol abuse, uncomplicated (principal); F41.9 Anxiety disorder, unspecified; I10 Essential (primary) hypertension; E78.00 Pure hypercholesterolemia, unspecified; K21.9 Gastro-esophageal reflux disease without esophagitis; E66.9 Obesity, unspecified; Z86.16 Personal history of COVID-19; Z90.49 Acquired absence of other specified parts of digestive tract; Z90.710 Acquired absence of both cervix and uterus; Z88.0 Allergy status to penicillin; Z88.2 Allergy status to sulfonamides; Z88.5 Allergy status to narcotic agent; Z88.8 Allergy status to other drugs, medicaments and biological substances; Z79.899 Other long term (current) drug therapy; Y90.0 Blood alcohol level of less than 20 mg/100 ml; Z91.199 Patient's noncompliance with other medical treatment and regimen due to unspecified reason; Z68.34 Body mass index [BMI] 34.0-34.9, adult
CPT/HCPCS: 36415; 80053; 80143; 80179; 80306; 80307; 82550; 83735; 85025; 96372; 99284; A9270; J2060; J2765

== ENCOUNTER 2025-02-21 11:59 | Emergency (ER) | payer MEDICAID ==
[2025-02-21 12:13] VITALS: BP 135/110
[2025-02-21] MEDS: Acetaminophen/oxyCODONE 325-5 MG Tab PO ONE (12:39)
[2025-02-21 14:07] VITALS: PULSE 78
== END 2025-02-21 14:01 | disposition home or self-care (01) ==
LOC: JD.ED 11:59
DX: S70.02XA Contusion of left hip, initial encounter (principal); S30.0XXA Contusion of lower back and pelvis, initial encounter; I10 Essential (primary) hypertension; E78.00 Pure hypercholesterolemia, unspecified; K21.9 Gastro-esophageal reflux disease without esophagitis; Z86.16 Personal history of COVID-19; Z88.2 Allergy status to sulfonamides; Z88.8 Allergy status to other drugs, medicaments and biological substances; Z88.0 Allergy status to penicillin; Z79.899 Other long term (current) drug therapy; W00.0XXA Fall on same level due to ice and snow, initial encounter; Y93.89 Activity, other specified
CPT/HCPCS: 72170; 96372; 99283; A9270; J1171

== ENCOUNTER 2025-02-22 15:11 | Emergency (ER) | payer MEDICAID ==
[2025-02-22] MEDS ORDERED: Naloxone 0.4 MG/ML SDV IVPUSH PRN (15:51)
[2025-02-22 16:08] VITALS: BP 159/103; PULSE 78
== END 2025-02-22 16:08 | disposition home or self-care (01) ==
LOC: JD.ED 15:11
DX: M25.552 Pain in left hip (principal); I10 Essential (primary) hypertension; E78.00 Pure hypercholesterolemia, unspecified; K21.9 Gastro-esophageal reflux disease without esophagitis; E03.9 Hypothyroidism, unspecified; Z86.16 Personal history of COVID-19; Z88.0 Allergy status to penicillin; Z88.2 Allergy status to sulfonamides; Z88.5 Allergy status to narcotic agent; Z79.899 Other long term (current) drug therapy
CPT/HCPCS: 96372; 99282; J1171

== ENCOUNTER 2025-02-25 08:41 | Emergency (ER) | payer MEDICAID ==
[2025-02-25 10:33] VITALS: BP 120/85; PULSE 81
== END 2025-02-25 10:10 | disposition home or self-care (01) ==
LOC: JD.ED 08:41
DX: S39.012A Strain of muscle, fascia and tendon of lower back, initial encounter (principal); S70.02XA Contusion of left hip, initial encounter; I10 Essential (primary) hypertension; E78.00 Pure hypercholesterolemia, unspecified; K21.9 Gastro-esophageal reflux disease without esophagitis; E03.9 Hypothyroidism, unspecified; Z86.16 Personal history of COVID-19; Z88.5 Allergy status to narcotic agent; Z88.2 Allergy status to sulfonamides; Z88.8 Allergy status to other drugs, medicaments and biological substances; Z88.0 Allergy status to penicillin; W00.0XXA Fall on same level due to ice and snow, initial encounter; Y93.89 Activity, other specified
CPT/HCPCS: 96372; 99283; J1171

== ENCOUNTER 2025-03-05 12:31 | Emergency (ER) | payer MEDICAID ==
[2025-03-05] MEDS ORDERED: Sodium Chloride 0.9% 10 ML Syringe FLUSH PRN (14:33)
[2025-03-05 15:09] LABS: BASOPHILS ABSOLUTE AUTO 0.0 K/mm3 (0.0-0.2); BASOPHILS PERCENT AUTO 0.7 % (0.0-1.0); EOSINOPHILS ABSOLUTE AUTO 0.0 K/mm3 (0.0-0.4); EOSINOPHILS PERCENT AUTO 0.2 % (0.0-6.0); IMMATURE GRAN ABSOLUTE AUTO 0.01 K/mm3 (0.00-0.05); IMMATURE GRAN PERCENT AUTO 0.2 % (0.0-0.4); LYMPHOCYTES ABSOLUTE AUTO 1.3 K/mm3 (1.0-4.8); LYMPHOCYTES PERCENT AUTO 31.9 % (24.0-44.0); MEAN PLATELET VOLUME 10.1 fl (9.4-12.3); MONOCYTES ABSOLUTE AUTO 0.4 K/mm3 (0.0-0.8); MONOCYTES PERCENT AUTO 9.9 % (0.0-8.0); NEUTROPHILS ABSOLUTE AUTO 2.4 K/mm3 (1.8-7.7); NEUTROPHILS PERCENT AUTO 57.1 % (41.0-71.0); NRBC ABSOLUTE 0.00 (0.00-0.02); NRBC PERCENT 0.0 % (0.0-0.2); PLATELET COUNT,PLT 293 K/mm3 (150-400); RED BLOOD CELL COUNT 4.81 M/mm3 (4.10-5.30); WHITE BLOOD CELL COUNT,WBC 4.14 K/mm3 (3.9-11.3)
[2025-03-05 16:13] LABS: A/G RATIO 1.1 (1-2); ALANINE AMINOTRANSFERASE,ALT 41.0 U/L (14-59); ASPARTATE AMNIOTRANSFERASE,AST 48.0 U/L (15-37); BILIRUBIN TOTAL 0.7 mg/dL (0.2-1.0); BLOOD UREA NITROGEN,BUN 7.0 mg/dL (7-18); CARBON DIOXIDE,CO2 27.0 mEq/L (21-32); CHLORIDE,CL 104.0 mEq/L (98-107); CREATININE 0.9 mg/dL (0.55-1.02); EST CRCL DRUG DOSING (CG) 57.4 mL/min; ESTIMATED GFR 73.0 mL/min (>60); GLUCOSE RANDOM 101.0 mg/dL (70-99); POTASSIUM,K 3.2 mEq/L (3.5-5.1); PROTEIN TOTAL,TP 6.8 g/dl (6.4-8.2); SODIUM,NA 141.0 mEq/L (136-145)
[2025-03-05 16:18] LABS: TROPONIN I HIGH SENSITIVITY 5.0 pg/mL (<=51)
[2025-03-05] MEDS ORDERED: Naloxone 0.4 MG/ML SDV IVPUSH PRN (16:26)
[2025-03-05 16:54] VITALS: BP 159/108; PULSE 88
== END 2025-03-05 16:54 | disposition home or self-care (01) ==
LOC: JD.ED 12:31
DX: R11.2 Nausea with vomiting, unspecified (principal); I10 Essential (primary) hypertension; E11.9 Type 2 diabetes mellitus without complications; K21.9 Gastro-esophageal reflux disease without esophagitis; M19.90 Unspecified osteoarthritis, unspecified site; J44.9 Chronic obstructive pulmonary disease, unspecified; Z86.16 Personal history of COVID-19; Z90.49 Acquired absence of other specified parts of digestive tract; Z90.710 Acquired absence of both cervix and uterus; Z79.899 Other long term (current) drug therapy; Z88.2 Allergy status to sulfonamides; Z88.1 Allergy status to other antibiotic agents; Z88.8 Allergy status to other drugs, medicaments and biological substances
CPT/HCPCS: 36415; 80053; 84484; 85025; 86140; 87428; 96361; 96374; 99284; J7030; J1171

== ENCOUNTER 2025-03-07 08:42 | Emergency (ER) | payer MEDICAID ==
[2025-03-07 09:58] LABS: BASOPHILS ABSOLUTE AUTO 0.0 K/mm3 (0.0-0.2); BASOPHILS PERCENT AUTO 0.8 % (0.0-1.0); EOSINOPHILS ABSOLUTE AUTO 0.1 K/mm3 (0.0-0.4); EOSINOPHILS PERCENT AUTO 1.8 % (0.0-6.0); IMMATURE GRAN ABSOLUTE AUTO 0.01 K/mm3 (0.00-0.05); IMMATURE GRAN PERCENT AUTO 0.3 % (0.0-0.4); LYMPHOCYTES ABSOLUTE AUTO 1.2 K/mm3 (1.0-4.8); LYMPHOCYTES PERCENT AUTO 32.0 % (24.0-44.0); MEAN PLATELET VOLUME 9.9 fl (9.4-12.3); MONOCYTES ABSOLUTE AUTO 0.4 K/mm3 (0.0-0.8); MONOCYTES PERCENT AUTO 9.5 % (0.0-8.0); NEUTROPHILS ABSOLUTE AUTO 2.2 K/mm3 (1.8-7.7); NEUTROPHILS PERCENT AUTO 55.6 % (41.0-71.0); NRBC ABSOLUTE 0.00 (0.00-0.02); NRBC PERCENT 0.0 % (0.0-0.2); RED BLOOD CELL COUNT 4.51 M/mm3 (4.10-5.30); WHITE BLOOD CELL COUNT,WBC 3.88 K/mm3 (3.9-11.3)
[2025-03-07 10:05] LABS: PLATELET COUNT,PLT 207 K/mm3 (150-400)
[2025-03-07] MEDS: Iopamidol 612 MG/ML 100 ML Bottle IVPUSH ONE (10:05)
[2025-03-07] MEDS: Sodium Chloride 0.9% 10 ML Syringe FLUSH PRN (10:05)
[2025-03-07 11:30] LABS: A/G RATIO 1.0 (1-2); ALANINE AMINOTRANSFERASE,ALT 42 U/L (14-59); ASPARTATE AMNIOTRANSFERASE,AST 62 U/L (15-37); BILIRUBIN TOTAL 0.5 mg/dL (0.2-1.0); BLOOD UREA NITROGEN,BUN 5 mg/dL (7-18); CARBON DIOXIDE,CO2 27 mEq/L (21-32); CHLORIDE,CL 105 mEq/L (98-107); CREATININE 0.9 mg/dL (0.55-1.02); EST CRCL DRUG DOSING (CG) 57.40 mL/min; ESTIMATED GFR 73 mL/min (>60); GLUCOSE RANDOM 98 mg/dL (70-99); POTASSIUM,K 3.3 mEq/L (3.5-5.1); PROTEIN TOTAL,TP 6.5 g/dl (6.4-8.2); SODIUM,NA 141 mEq/L (136-145)
[2025-03-07 11:32] LABS: TROPONIN I HIGH SENSITIVITY < 4 pg/mL (<=51)
[2025-03-07 11:58] VITALS: BP 123/98; PULSE 74
== END 2025-03-07 12:05 | disposition home or self-care (01) ==
LOC: JD.ED 08:42
DX: J21.9 Acute bronchiolitis, unspecified (principal); I10 Essential (primary) hypertension; E78.00 Pure hypercholesterolemia, unspecified; K21.9 Gastro-esophageal reflux disease without esophagitis; E03.9 Hypothyroidism, unspecified; E66.9 Obesity, unspecified; Z86.16 Personal history of COVID-19; Z90.49 Acquired absence of other specified parts of digestive tract; Z90.710 Acquired absence of both cervix and uterus; Z68.39 Body mass index [BMI] 39.0-39.9, adult
CPT/HCPCS: 36415; 71275; 80053; 84484; 85025; 93005; 99285; Q9967; 93010; 99283

== ENCOUNTER 2025-03-28 12:34 | Emergency (ER) | payer MEDICAID ==
[2025-03-28] MEDS ORDERED: Sodium Chloride 0.9% 10 ML Syringe FLUSH PRN (12:41)
[2025-03-28 12:51] VITALS: BP 128/85; PULSE 80
[2025-03-28 13:25] LABS: BASOPHILS ABSOLUTE AUTO 0.0 K/mm3 (0.0-0.2); BASOPHILS PERCENT AUTO 0.5 % (0.0-1.0); EOSINOPHILS ABSOLUTE AUTO 0.1 K/mm3 (0.0-0.4); EOSINOPHILS PERCENT AUTO 2.4 % (0.0-6.0); IMMATURE GRAN ABSOLUTE AUTO 0.01 K/mm3 (0.00-0.05); IMMATURE GRAN PERCENT AUTO 0.2 % (0.0-0.4); LYMPHOCYTES ABSOLUTE AUTO 1.5 K/mm3 (1.0-4.8); LYMPHOCYTES PERCENT AUTO 37.7 % (24.0-44.0); MEAN PLATELET VOLUME 9.7 fl (9.4-12.3); MONOCYTES ABSOLUTE AUTO 0.3 K/mm3 (0.0-0.8); MONOCYTES PERCENT AUTO 8.1 % (0.0-8.0); NEUTROPHILS ABSOLUTE AUTO 2.1 K/mm3 (1.8-7.7); NEUTROPHILS PERCENT AUTO 51.1 % (41.0-71.0); NRBC ABSOLUTE 0.00 (0.00-0.02); NRBC PERCENT 0.0 % (0.0-0.2); PLATELET COUNT,PLT 260 K/mm3 (150-400); RED BLOOD CELL COUNT 4.23 M/mm3 (4.10-5.30); WHITE BLOOD CELL COUNT,WBC 4.09 K/mm3 (3.9-11.3)
[2025-03-28 13:50] LABS: INR 1.06
[2025-03-28 13:52] LABS: PTT,PARTIAL THROMBOPLSTIN TIME 24.5 SECONDS (21.7-31.4)
[2025-03-28 13:54] LABS: A/G RATIO 1.0 (1-2); ALANINE AMINOTRANSFERASE,ALT 47 U/L (14-59); ASPARTATE AMNIOTRANSFERASE,AST 43 U/L (15-37); BILIRUBIN TOTAL 0.6 mg/dL (0.2-1.0); BLOOD UREA NITROGEN,BUN 9 mg/dL (7-18); CARBON DIOXIDE,CO2 22 mEq/L (21-32); CHLORIDE,CL 105 mEq/L (98-107); CREATININE 0.8 mg/dL (0.55-1.02); ESTIMATED GFR 84 mL/min (>60); GLUCOSE RANDOM 135 mg/dL (70-99); PROTEIN TOTAL,TP 6.5 g/dl (6.4-8.2); SODIUM,NA 141 mEq/L (136-145); TROPONIN I HIGH SENSITIVITY 4 pg/mL (<=51)
[2025-03-28 13:56] LABS: POTASSIUM,K 3.3 mEq/L (3.5-5.1)
== END 2025-03-28 13:51 | disposition left against medical advice (07) ==
LOC: JD.ED 12:34
DX: Z53.21 Procedure and treatment not carried out due to patient leaving prior to being seen by health care provider (principal)
CPT/HCPCS: 36415; 70450; 70450-26; 73562-26-LT; 73562-LT; 80053; 82947; 83735; 84484; 85025; 85610; 85730